=== PATIENT | male | born 1965 | race Caucasian/White ===

== ENCOUNTER 2020-02-17 15:50 | Outpatient (CLI) | payer OTHER, SELFPAY ==
[2020-02-17 16:58] LABS: Basophils Absolute Auto 0.1 K/mm3 (0.0-0.1); Basophils Percent Auto 0.5 % (0.2-1.2); Eosinophils Absolute Auto 0.5 K/mm3 (0-0.3); Eosinophils Percent Auto 5.4 % (0-4.4); Hematocrit 35.8 % (42.0-52.0); Hemoglobin 11.1 g/dL (14.0-18.0); Immature Granulocyte Absolute 0.03 K/mm3 (0.00-0.031); Immature Granulocyte Percent A 0.3 % (0-0.5); Lymphocytes Percent Auto 19.3 % (18.3-44.2); Mean Corpuscular Hemoglobin 25.2 pg (26-34); Mean Corpuscular Volume 81.2 fl (80-100); Mean Platelet Volume 9.5 fl (7.4-10.4); Monocytes Absolute Auto 1.2 K/mm3 (0.1-0.6); Monocytes Percent Auto 12.4 % (2.6-8.5); Neutrophils Absolute Auto 5.8 K/mm3 (1.3-6.7); Neutrophils Percent Auto 62.1 % (45.5-73.1); Platelet Count Result 213 k/mm3 (150-375); Red Blood Count 4.41 M/mm3 (4.6-6.20); Red Cell Distribution Width 18.9 % (11.5-14.5); White Blood Count 9.3 K/mm3 (4.5-10.0)
[2020-02-17 17:13] LABS: Hemoglobin A1C 5.7 % (<5.7)
[2020-02-17 17:14] LABS: Alanine Aminotransferase 15 U/L (4-50); Albumin Level 4.2 g/dL (3.5-5.1); Alkaline Phosphatase 95 U/L (38-126); Aspartate Amino Transferase 23 U/L (17-59); Bilirubin,Total 0.2 mg/dL (0.2-1.3); Blood Urea Nitrogen 16 mg/dL (9-20); CRP 0.7 mg/dL (<1.0); Calcium 8.7 mg/dL (8.4-10.2); Carbon Dioxide 26 mmol/L (22-30); Chloride 107 mmol/L (98-107); Cholesterol 162 mg/dL (0-200); Estimated Glomerular Filt Rate > 60; Glucose 106 mg/dL (75-110); HDL Direct 34 mg/dL; Sodium 139 mmol/L (137-145); Triglycerides 187 mg/dL (<150)
[2020-02-17 17:23] LABS: LDL Cholesterol Direct 96 mg/dL
[2020-02-17 17:36] LABS: Erythrocyte Sedimentation Rate 17 mm/hr (0-20)
[2020-02-20 12:49] LABS: Vitamin D 1,25 (OH)2 Total 29 pg/mL (18-72); Vitamin D2 1,25 (OH)2 <8 pg/mL; Vitamin D3 1,25 (OH)2 29 pg/mL
[2020-02-20 15:54] LABS: Homocysteine 10.1 umol/L (<11.4)
[2020-02-21 12:36] LABS: Vitamin B1 89 nmol/L (8-30)
== END 2020-02-17 15:51 | disposition home or self-care (01) ==
PROVIDERS: PCP Internal Medicine; Visit Provider Internal Medicine
DX: Z79.899 Other long term (current) drug therapy (principal); I10 Essential (primary) hypertension; R79.89 Other specified abnormal findings of blood chemistry; E55.9 Vitamin D deficiency, unspecified
CPT/HCPCS: 36415; 80053; 80061; 82652; 83036; 83090; 84207; 84425; 85025; 85652; 86140

== ENCOUNTER 2020-04-01 16:31 | Outpatient (CLI) | payer BC, SELFPAY ==
--- NOTE | ~2020-04-01 | XR_ITS ---
XR foot LT min 3V, XR toe 1st LT min 2V 04/01/2020 16:58 (accession [id number]), 04/01/2020 16:59 (accession [id number]) Indication: Left foot and first toe pain Procedure: 4 views left foot and 2 views left first toe Comparison: No prior studies for comparison. Findings: There is a comminuted extra-articular fracture left first distal phalanx. Mild osteoarthrit is of the first MTP and IP joints. Lisfranc joint intact. Osteopenia. There is a degenerative calcane al enthesophyte at the plantar surface. No focal foreign bodies. Impression: 1: Comminuted extra-articular nondisplaced fracture left first distal phalanx. Reviewed, dictated and finalized at location A. Impression: 1: Comminuted extra-articular nondisplaced fracture left first distal phalanx. Impression: 1: Comminuted extra-articular nondisplaced fracture left first distal phalanx.
== END 2020-04-01 16:32 | disposition home or self-care (01) ==
PROVIDERS: PCP Internal Medicine; Visit Provider Internal Medicine
DX: S92.422A Displaced fracture of distal phalanx of left great toe, initial encounter for closed fracture (principal)
CPT/HCPCS: 73630; 73660

== ENCOUNTER 2020-04-14 12:33 | Outpatient (CLI) | payer BC, SELFPAY ==
--- NOTE | ~2020-04-14 | XR_ITS ---
EXAMINATION: XR chest 2V DATE: 04/14/2020 13:17 INDICATION: Cough. TECHNIQUE: Frontal and lateral views of the chest were obtained. COMPARISON: Chest single view 08/10/2019, chest CT 08/10/2019 FINDINGS: The chest demonstrates clear lungs without pneumonia, pleural effusion, or pneumothorax. Th e heart size is normal. There is a moderate-sized hiatal hernia. IMPRESSION: 1. Moderate-sized hiatal hernia. Reviewed, dictated and finalized at location B.
[2020-04-14 13:08] LABS: Basophils Percent Auto 0.3 % (0.2-1.2); Eosinophils Absolute Auto 0.1 K/mm3 (0-0.3); Eosinophils Percent Auto 0.7 % (0-4.4); Hematocrit 39.4 % (42.0-52.0); Hemoglobin 12.8 g/dL (14.0-18.0); Immature Granulocyte Absolute 0.04 K/mm3 (0.00-0.031); Immature Granulocyte Percent A 0.3 % (0-0.5); Lymphocytes Absolute Auto 1.93 K/mm3 (0.9-3.2); Lymphocytes Percent Auto 12.9 % (18.3-44.2); Mean Corpuscular HGB Conc 32.5 g/dl (32-36); Mean Corpuscular Hemoglobin 26.3 pg (26-34); Mean Corpuscular Volume 80.9 fl (80-100); Mean Platelet Volume 9.9 fl (7.4-10.4); Monocytes Absolute Auto 1.3 K/mm3 (0.1-0.6); Monocytes Percent Auto 8.4 % (2.6-8.5); Neutrophils Absolute Auto 11.6 K/mm3 (1.3-6.7); Neutrophils Percent Auto 77.4 % (45.5-73.1); Platelet Count Result 166 k/mm3 (150-375); Red Blood Count 4.87 M/mm3 (4.6-6.20); Red Cell Distribution Width 18.6 % (11.5-14.5); White Blood Count 14.9 K/mm3 (4.5-10.0)
== END 2020-04-14 12:34 | disposition home or self-care (01) ==
LOC: ANHLAB 12:34
PROVIDERS: PCP Internal Medicine; Visit Provider Internal Medicine
DX: R05 Cough (principal); Z79.899 Other long term (current) drug therapy; K44.9 Diaphragmatic hernia without obstruction or gangrene
CPT/HCPCS: 36415; 71046; 85025

== ENCOUNTER 2020-06-24 06:53 | Outpatient (NON) | payer BC, SELFPAY ==
[2020-06-24 21:43] LABS: SARS-CoV-2 RNA PCR Negative
== END 2020-06-24 06:54 ==
LOC: ANHCOVIDDT 06:56
PROVIDERS: PCP Internal Medicine; Visit Provider Internal Medicine
DX: Z20.828 Contact with and (suspected) exposure to other viral communicable diseases (principal); R50.9 Fever, unspecified
CPT/HCPCS: 87635; C9803; U0003

== ENCOUNTER 2020-08-02 14:58 | Outpatient (CLI) | payer BC, SELFPAY ==
[2020-08-02 15:49] LABS: Basophils Absolute Auto 0.1 K/mm3 (0.0-0.1); Basophils Percent Auto 0.7 % (0.2-1.2); Eosinophils Absolute Auto 0.1 K/mm3 (0-0.3); Eosinophils Percent Auto 1.4 % (0-4.4); Hematocrit 37.2 % (42.0-52.0); Hemoglobin 12.2 g/dL (14.0-18.0); Immature Granulocyte Absolute 0.04 K/mm3 (0.00-0.031); Immature Granulocyte Percent A 0.5 % (0-0.5); Lymphocytes Absolute Auto 1.29 K/mm3 (0.9-3.2); Lymphocytes Percent Auto 15.9 % (18.3-44.2); Mean Corpuscular HGB Conc 32.8 g/dl (32-36); Mean Corpuscular Hemoglobin 27.9 pg (26-34); Mean Corpuscular Volume 84.9 fl (80-100); Mean Platelet Volume 9.3 fl (7.4-10.4); Monocytes Absolute Auto 1.2 K/mm3 (0.1-0.6); Monocytes Percent Auto 14.5 % (2.6-8.5); Neutrophils Absolute Auto 5.4 K/mm3 (1.3-6.7); Platelet Count Result 176 k/mm3 (150-375); Red Blood Count 4.38 M/mm3 (4.6-6.20); Red Cell Distribution Width 19.5 % (11.5-14.5); White Blood Count 8.1 K/mm3 (4.5-10.0)
[2020-08-02 16:06] LABS: Alanine Aminotransferase 34 U/L (4-50); Albumin Level 4.3 g/dL (3.5-5.1); Alkaline Phosphatase 73 U/L (38-126); Anion Gap 7 mmol/L (8-16); Aspartate Amino Transferase 46 U/L (17-59); Bilirubin,Total 0.5 mg/dL (0.2-1.3); Blood Urea Nitrogen 11 mg/dL (9-20); Calcium 9.3 mg/dL (8.4-10.2); Carbon Dioxide 30 mmol/L (22-30); Chloride 101 mmol/L (98-107); Cholesterol 229 mg/dL (0-200); Estimated Glomerular Filt Rate > 60; Glucose 101 mg/dL (75-110); HDL Direct 75 mg/dL; Potassium 3.8 mmol/L (3.4-5.0); Sodium 138 mmol/L (137-145); Triglycerides 153 mg/dL (<150)
[2020-08-02 16:16] LABS: Hemoglobin A1C 5.2 % (<5.7)
[2020-08-02 16:17] LABS: LDL Cholesterol Direct 153 mg/dL
[2020-08-02 16:37] LABS: Prostate Specific Antigen 1.7 ng/mL (< OR = 4.0)
[2020-08-04 13:19] LABS: Homocysteine 22.9 umol/L (<11.4)
== END 2020-08-02 14:59 | disposition home or self-care (01) ==
LOC: ANHLAB 15:00
PROVIDERS: PCP Internal Medicine; Visit Provider Internal Medicine
DX: R79.89 Other specified abnormal findings of blood chemistry (principal); I10 Essential (primary) hypertension; Z79.899 Other long term (current) drug therapy; Z12.5 Encounter for screening for malignant neoplasm of prostate
CPT/HCPCS: 36415; 80053; 80061; 82248; 83036; 83090; 84153; 84443; 85025; G0103

== ENCOUNTER 2020-08-05 13:05 | Outpatient (CLI) | payer BC, SELFPAY ==
--- NOTE | ~2020-08-05 | CT_ITS ---
EXAMINATION: CT chest high resolution wo nd EXAM DATE: 08/05/2020 13:33 INDICATION: R05 - Cough . TECHNIQUE: Spiral CT of the chest without contrast. HRCT. Axial, coronal and sagittal images were re viewed. Coronal maximum intensity pixel images of chest reviewed. The dose-length product (DLP) for this examination was 249.01 mGy-cm. The exposure was tailored according to patient size (auto mA ex posure control), and iterative reconstruction (ASIR) was used as additional dose reduction technique. Comparison is made to prior examination from 08/10/2019. FINDINGS: No intralobular septal thickening on the HRCT. There is right middle lobe and lingular sub segmental atelectasis. Scattered small left perihilar upper lobe and lingular opacities, could be acu te or chronic infectious process, or could be postinfectious. These are new compared to prior study. The lungs are otherwise clear. There are no pleural or pericardial effusions. Tracheobronchial tree is patent. There is no media stinal, hilar or axillary lymphadenopathy. There is no pneumothorax. Heart normal in size. No e vidence of coronary arterial calcification. There is hepatic steatosis. Cholelithiasis. There is smal l to moderate sliding gastroesophageal hiatal hernia. There is thoracic spondylosis without osteobla stic or osteolytic lesions identified. IMPRESSION: 1. Scattered small left perihilar upper lobe and lingular opacities, could be acute or chronic infec tious process, or could be postinfectious. 2. Lingular and right middle lobe subsegmental atelectasis. 3. Small to moderate hiatal hernia. 4. Hepatic steatosis. Reviewed, dictated and finalized at location A. SALVAGER IMPRESSION: 1. Scattered small left perihilar upper lobe and lingular opacities, could be acute or chronic infectious process, or could be postinfectious. 2. Lingular and right middle lobe subsegmental atelectasis. 3. Small to moderate hiatal hernia. 4. Hepatic steatosis.
== END 2020-08-05 13:06 | disposition home or self-care (01) ==
PROVIDERS: PCP Internal Medicine; Visit Provider Internal Medicine
DX: R05 Cough (principal); K76.0 Fatty (change of) liver, not elsewhere classified; K44.9 Diaphragmatic hernia without obstruction or gangrene; R91.8 Other nonspecific abnormal finding of lung field
CPT/HCPCS: 71250

== ENCOUNTER 2020-09-01 07:58 | Outpatient (CLI) | payer BC, SELFPAY ==
--- NOTE | 2020-09-02 11:50 | WPDPFTINT ---
PFT Interpretation PFT Interpretation: nm pulmonary function Full pulmonary testing 09/01/2020. 1. Flows appear normal with FEV1 2.93/92% PRED. 2. Nonetheless, there is modest in improvement in flows following inhaled bronchodilator. 3. Lung volumes appear satisfactory with TLC 6.41 /103% PRED. 4. Diffusing capacity appears satisfactory. In summary, this data appears normal. Nonetheless, the modest increase in flows following inhaled bronchodilator could suggest some underlying bronchospasm. Armando Hoskins MD MSc FACP FCCP
== END 2020-09-01 07:59 | disposition home or self-care (01) ==
LOC: ANHPFT 08:03
PROVIDERS: PCP Internal Medicine; Visit Provider Internal Medicine
DX: R05 Cough (principal)
CPT/HCPCS: 94060; 94726; 94729

== ENCOUNTER 2020-11-11 21:51 | Inpatient (IN) | payer BC, SELFPAY ==
[2020-11-11] VITALS (7 sets, daily range): BP systolic 138–142; BP diastolic 78–90; PULSE 126–134; RESP 22–42; TEMP 36.9; O2SAT 78–91
--- NOTE | ~2020-11-11 | CT_ITS ---
EXAMINATION: CT chest abdomen pelvis wo con DATE: 11/19/2020 08:50 INDICATION: Severe diarrhea. Abdominal pain. TECHNIQUE: Computed tomography (CT) of the chest, abdomen, and pelvis was performed without intraveno us contrast. Automated exposure control and iterative reconstruction technique were employed. The dos e-length product was 819.24 mGy-cm. COMPARISON: None FINDINGS: CHEST CT: Tree-in-bud opacities with innumerable small centrilobular nodules solid and subselected nodules thro ughout all lobes of both lungs consistent with pneumonia. There are more recent bands of discoid atel ectasis in the bilateral upper and lower lobes with additional dependent compressive atelectasis in t he bilateral lower lobes. Small bilateral pleural effusions. Heart size is normal. No pericardial eff usion. Likely reactive mildly prominent right paratracheal lymph node. No other pathologically enlarg ed thoracic lymphadenopathy. Moderate-sized sliding-type hiatal hernia. Ectatic ascending thoracic ao rta measuring up to 4.0 cm in maximal diameter. Mild thoracic spondylosis with Schmorl's node and chr onic appearing mild superior endplate compression fracture at T11. ABDOMEN/PELVIS CT: Diffuse hepatic steatosis. There are few calcified gallstones at the neck of the otherwise normal-bhavik earing gallbladder. Spleen, pancreas, bilateral adrenal glands and kidneys are normal. No bowel obstr uction. Normal appendix. There are a couple small colonic diverticula without adjacent inflammatory c hange to suggest diverticulitis. There is diffuse colonic wall thickening which appears to result fro m a combination of fatty infiltration and superimposed marrow edema, the former which could be relate d to body habitus or chronic inflammation and the latter suggesting acute colitis which could be infe ctious, inflammatory or ischemic in etiology. Gonzales catheter within the decompressed bladder. Trace a mount of ascites in the pelvis. No abscess or free intraperitoneal gas. No pathologically enlarged ab dominal or pelvic lymphadenopathy. Mild lumbar spondylosis. IMPRESSION: 1. Diffuse pneumonia throughout both lungs with small bilateral pleural effusions. 2. Pancolitis which could be infectious, inflammatory or ischemic in etiology. 3. Cholelithiasis. 4. Moderate-sized sliding-type hiatal hernia. 5. Diffuse hepatic steatosis. Reviewed, dictated and finalized at location B. IMPRESSION: 1. Diffuse pneumonia throughout both lungs with small bilateral pleural effusio ns. 2. Pancolitis which could be infectious, inflammatory or ischemic in etiology. 3. Cholelithiasis. 4. Moderate-sized sliding-type hiatal hernia. 5. Diffuse hepatic steatosis.
--- NOTE | ~2020-11-11 | XR_ITS ---
EXAMINATION: XR barium swallow modified EXAM DATE: 11/19/2020 12:05 INDICATION: Dysphagia. TECHNIQUE: Modified barium esophagram was performed by myself to administered fluoroscopy, in conjun ction with speech pathologist who administered barium in varying consistencies as per speech patholog ist documentation. This was recorded on tape. The DAP for this procedure was 0.6 Gycm2. FINDINGS: Oral stage: Adequate function. Pharyngeal phase: Adequate function. Laryngeal penetration: None. Aspiration: None. Laryngeal sensitivity: Present. IMPRESSION: Normal modified esophagram exam. Please refer to speech pathologist findings and specifi c feeding recommendations. Reviewed, dictated and finalized at location A. IMPRESSION: Normal modified esophagram exam. Please refer to speech pathologis t findings and specific feeding recommendations.
--- NOTE | ~2020-11-11 | XR_ITS ---
EXAMINATION: XR chest 1V portable DATE: 11/20/2020 05:46 INDICATION: Pneumonia TECHNIQUE: frontal view of the chest was obtained. COMPARISON: Chest radiograph dated 11/19/2020 -11/17/2020 FINDINGS: Continued improvement in the previously more pronounced diffuse reticulonodular pattern throughout debby th lungs consistent with improving pneumonia. No pleural effusion or pneumothorax. The cardiomediasti nal silhouette is normal. Small hiatal hernia. IMPRESSION: 1. Continued decrease in prior diffuse bilateral lung disease consistent with improving pneumonia. 2. Small hiatal hernia. Reviewed, dictated and finalized at location A. IMPRESSION: 1. Continued decrease in prior diffuse bilateral lung disease consistent with i mproving pneumonia. 2. Small hiatal hernia.
--- NOTE | ~2020-11-11 | XR_ITS ---
EXAMINATION: XR chest 1V portable DATE: 11/16/2020 06:05 INDICATION: Acute respiratory failure. TECHNIQUE: A single frontal view of the chest was obtained. COMPARISON: Chest single view 11/15/2020 FINDINGS: There are airspace opacities in all lung zones bilaterally with a perihilar and left basila r predominance. No pleural effusion or pneumothorax. The heart size is normal. The endotracheal tube tip is 4.4 cm above the ramirez. The nasogastric tube tip is beyond the inferior margin of the radiogr aph, but at least to the stomach. IMPRESSION: 1. Stable diffuse lung disease, consistent with pulmonary edema versus pneumonia. Reviewed, dictated and finalized at location A. IMPRESSION: 1. Stable diffuse lung disease, consistent with pulmonary edema versus pneumoni a.
--- NOTE | ~2020-11-11 | XR_ITS ---
XR chest 1V portable 11/22/2020 05:59 Indication: Pneumonia Procedure: AP portable chest Comparison: Comparison to multiple prior studies sequentially, with oldest reviewed study dated 11/18. Findings: No significant change to bilateral diffuse reticulonodular opacities. No significant effusi on or pneumothorax. Heart size is normal. There is hiatal hernia. No acute osseous abnormality. Impression: 1: Stable bilateral reticulonodular opacities, consistent with pneumonia. Reviewed, dictated and finalized at location A. Impression: 1: Stable bilateral reticulonodular opacities, consistent with pneumonia.
--- NOTE | ~2020-11-11 | XR_ITS ---
EXAMINATION: XR chest 1V portable DATE: 11/14/2020 05:42 INDICATION: Respiratory failure. TECHNIQUE: A single frontal view of the chest was obtained. COMPARISON: Chest single view 11/13/2020 FINDINGS: There are airspace opacities in all lung zones bilaterally with a perihilar predominance. T here is a small left pleural effusion. No pneumothorax. The heart size is normal. The endotracheal tu be tip is 4.4 cm above the ramirez. The nasogastric tube tip is in the stomach. IMPRESSION: 1. Worsened diffuse lung disease, likely pneumonia. 2. New small left pleural effusion. Reviewed, dictated and finalized at location A.
--- NOTE | ~2020-11-11 | XR_ITS ---
EXAMINATION: XR chest ET placement INDICATION: Respiratory failure, intubation TECHNIQUE: Portable AP chest at 0 to 50 hours COMPARISON: 11/11/2020 FINDINGS: The endotracheal tube ends approximately 5.7 cm above the ramirez. The nasogastric tube is f ollowed as far as the stomach. Its tip is beyond the inferior margin of the radiograph. Diffuse inter stitial and airspace opacities have developed with a perihilar and lower lung zone distribution. No d efinite pleural effusion or pneumothorax is identified. The cardiomediastinal silhouette is normal. IMPRESSION: 1. Endotracheal tube approximately 5.7 cm above the ramirez and nasogastric tube at least to the stoma ch. 2. Developing perihilar and lower lung zone opacities, consistent with pulmonary edema and/or pneumon ia and/or atelectasis. Reviewed, dictated and finalized at location A. 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 Endotracheal tube approximately 5.7 cm above the ramirez and nasogastric tube at least to the stomach. 2. Developing perihilar and lower lung zone opacities, consistent with pulmonar y edema and/or pneumonia and/or atelectasis.
--- NOTE | ~2020-11-11 | XR_ITS ---
EXAMINATION: XR chest 1V portable DATE: 11/21/2020 05:47 INDICATION: Pneumonia TECHNIQUE: frontal view of the chest was obtained. COMPARISON: Chest radiograph dated 11/20/2020 FINDINGS: Continued improvement in the previously more pronounced reticulonodular pattern which is now near nor mal. No new airspace opacities, pulmonary edema, pleural effusion or pneumothorax. The cardiomediasti nal silhouette is normal. Gas within a small hiatal hernia. IMPRESSION: 1. Continued decrease in prior diffuse bilateral lung disease, now near normal, consistent with impro ving pneumonia. 2. Small hiatal hernia. Reviewed, dictated and finalized at location A. IMPRESSION: 1. Continued decrease in prior diffuse bilateral lung disease, now near normal, consistent with improving pneumonia. 2. Small hiatal hernia.
--- NOTE | ~2020-11-11 | XR_ITS ---
EXAMINATION: XR chest 1V portable DATE: 11/15/2020 05:39 INDICATION: Acute respiratory failure. TECHNIQUE: A single frontal view of the chest was obtained on 2 radiographs. COMPARISON: Chest single view 11/14/2020 FINDINGS: There are airspace opacities in all lung zones bilaterally with a perihilar predominance. T here is a small left pleural effusion. No pneumothorax. The heart size is normal. The endotracheal tu be tip is 4.3 cm above the ramirez. The nasogastric tube tip is beyond the inferior margin of the radi ograph, but at least to the stomach. IMPRESSION: 1. Worsened diffuse lung disease, consistent with pneumonia versus pulmonary edema. 2. Stable small left pleural effusion. Reviewed, dictated and finalized at location A. IMPRESSION: 1. Worsened diffuse lung disease, consistent with pneumonia versus pulmonary ed gerard. 2. Stable small left pleural effusion.
--- NOTE | ~2020-11-11 | XR_ITS ---
EXAMINATION: XR chest 2V 11/11/2020 23:25 INDICATION: Shortness of breath. Seizure. Cough. PROCEDURE: 2 view chest COMPARISON: Comparison to multiple prior studies sequentially, with oldest reviewed study dated 02/12. FINDINGS: The lungs are clear. The cardiomediastinal silhouette is within normal limits. There are no pleural effusions. There is no pneumothorax suspected. There is a small hiatal hernia. IMPRESSION: 1: NO ACUTE CARDIOPULMONARY DISEASE. Reviewed, dictated and finalized at location A. CISER
--- NOTE | ~2020-11-11 | XR_ITS ---
EXAMINATION: XR chest 1V portable DATE: 11/19/2020 05:52 INDICATION: Pneumonia. TECHNIQUE: A single frontal view of the chest was obtained. COMPARISON: Chest single view 11/18/2020, chest CT 08/05/2020 FINDINGS: There are scattered nodules in the lungs, worst in left midlung zone. No pleural effusion o r pneumothorax. The heart size is normal. IMPRESSION: 1. Diffuse lung disease with interval improvement, consistent with pneumonia. Reviewed, dictated and finalized at location A.
--- NOTE | ~2020-11-11 | XR_ITS ---
EXAMINATION: XR chest 1V portable DATE: 11/17/2020 05:41 INDICATION: Acute respiratory failure. TECHNIQUE: A single frontal view of the chest was obtained. COMPARISON: Chest single view 11/16/2020, chest CT 08/05/2020 FINDINGS: There are airspace opacities in all lung zones bilaterally with a perihilar predominance. N o pleural effusion or pneumothorax. The heart size is normal. IMPRESSION: 1. Diffuse lung disease with improvement at left lung base, consistent with pulmonary edema versus pn eumonia. Reviewed, dictated and finalized at location A. IMPRESSION: 1. Diffuse lung disease with improvement at left lung base, consistent with pul monary edema versus pneumonia.
--- NOTE | ~2020-11-11 | CT_ITS ---
EXAMINATION: CT brain wo con INDICATION: Transient alteration of awareness COMPARISON: 08/11/2019 TECHNIQUE: Standard unenhanced head CT. The dose-length product (DLP) was 605.33 mGy-cm. The mA was a djusted according to patient size. Iterative reconstruction technique was employed. FINDINGS: There is no acute intraparenchymal hemorrhage. No evidence of mass lesion. No evidence of a cute infarction. There is mild periventricular and subcortical hypodensity probably related to small vessel ischemic disease. There is mild prominence of the sulci and ventricles related to cerebral atr ophy. Intracranial calcified cerebral atherosclerosis is noted. There are no extra-axial collections. There is no mass effect or midline shift. Changes in the globes are likely from ocular lens surgery. There is mild mucosal thickening of the paranasal sinuses. IMPRESSION: 1. No acute intracranial abnormality. 2. Age related findings. Reviewed, dictated and finalized at location A. ATIONS TECH
--- NOTE | ~2020-11-11 | XR_ITS ---
EXAMINATION: XR chest 1V portable DATE: 11/13/2020 05:38 INDICATION: Acute respiratory failure. TECHNIQUE: A single frontal view of the chest was obtained. COMPARISON: Chest single view 11/12/2020, chest CT 08/05/2020 FINDINGS: There are patchy airspace opacities in all lung zones bilaterally with a medial predominanc e. No pleural effusion or pneumothorax. The heart size is normal. The endotracheal tube tip is 4.5 cm above the ramirez. The nasogastric tube tip is in the midesophagus. IMPRESSION: 1. Diffuse lung disease with interval improvement, likely pneumonia. Reviewed, dictated and finalized at location A. 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
--- NOTE | ~2020-11-11 | US_ITS ---
EXAMINATION: US venous doppler [facility] DATE: 11/14/2020 08:58 INDICATION: Lower limb edema. TECHNIQUE: Grayscale ultrasound images without and with compression and Doppler ultrasound images of the bilateral lower extremity veins were obtained. COMPARISON: None. FINDINGS: The visualized portions of right common femoral vein, profunda (deep) femoral vein, femoral vein, pop liteal vein, peroneal veins, posterior tibial veins, and greater saphenous vein outflow are patent. The visualized portions of left common femoral vein, profunda femoral vein, femoral vein, popliteal v ein, peroneal veins, posterior tibial veins, and greater saphenous vein outflow are patent. IMPRESSION: 1. No deep venous thrombosis. Reviewed, dictated and finalized at location A.
--- NOTE | ~2020-11-11 | XR_ITS ---
EXAMINATION: XR chest 1V portable DATE: 11/18/2020 05:44 INDICATION: Pneumonia. TECHNIQUE: A single frontal view of the chest was obtained. COMPARISON: Chest single view 11/17/2020 FINDINGS: There are patchy airspace opacities throughout the lungs bilaterally. No pleural effusion o r pneumothorax. The heart size is normal. IMPRESSION: 1. Stable diffuse lung disease, consistent with pulmonary edema versus pneumonia. Reviewed, dictated and finalized at location A. IMPRESSION: 1. Stable diffuse lung disease, consistent with pulmonary edema versus pneumoni a.
--- NOTE | 2020-11-11 22:17 | ECG_ITS ---
Measurements Intervals [place] Rate: 126 P: 48 PA: 143 QRS: 53 QRSD: 110 T: 10 QT: 385 QTc: 558 Interpretive Statements SINUS TACHYCARDIA CONSIDER INFERIOR INFARCT, AGE INDETERMINATE BORDERLINE ST-T WAVE ABNORMALITY- ANTEROLATERAL LEADS BASELINE ARTIFACT- I, II, III, AVR, AVL, AVF, V1-V6 ABNORMAL ECG Electronically Signed On 11-12-2020 7:06:40 DRUM ATTENDANT by Jarred Bustillo D.O.
[2020-11-11] MEDS: diazePAM INJ (*CRX) 10 MG/2 ML SYRINGE 5 MG IV PUSH ×2 (22:40→23:07)
[2020-11-11 22:44] LABS: Basophils Percent Auto 0.2 % (0.2-1.2); Eosinophils Percent Auto 0.1 % (0-4.4); Hematocrit 35.3 % (42.0-52.0); Hemoglobin 11.1 g/dL (14.0-18.0); Immature Granulocyte Absolute 0.17 K/mm3 (0.00-0.031); Immature Granulocyte Percent A 1.1 % (0-0.5); Immature Platelet Fraction Pct 12.2 % (0.9-11.2); Lymphocytes Absolute Auto 0.75 K/mm3 (0.9-3.2); Lymphocytes Percent Auto 4.7 % (18.3-44.2); Mean Corpuscular HGB Conc 31.4 g/dl (32-36); Mean Corpuscular Hemoglobin 25.3 pg (26-34); Mean Corpuscular Volume 80.6 fl (80-100); Mean Platelet Volume 11.5 fl (7.4-10.4); Monocytes Absolute Auto 1.1 K/mm3 (0.1-0.6); Monocytes Percent Auto 6.7 % (2.6-8.5); Neutrophils Percent Auto 87.2 % (45.5-73.1); Platelet Count Result 131 k/mm3 (150-375); Red Blood Count 4.38 M/mm3 (4.6-6.20); Red Cell Distribution Width 19.7 % (11.5-14.5)
[2020-11-11 22:56] LABS: Alveolar/Arterial O2 Gradient 212.5 mmHg; Base Excess ABG 10.1 mEq/l (+/-2.0); Carboxyhemoglobin 0.6 % THb (0-2.0); Fractional Inspired Oxygen 45 %; HCO3 ABG 34.7 mEq/l (22.0-26.0); Methemoglobin ABG 0.2 %THb (0-1.5); Oxygen Content ABG 13.9 %vol (16.0-22.0); Oxyhemoglobin 88.2 % THb (90.0-100.0); PCO2 ABG 46.3 mmHg (35.0-45.0); PO2 ABG 55.7 mmHg (80.0-100.0); PO2 FiO2 Ratio Arterial Blood 1.24 %; Total Hemoglobin 11.2 g/dL (12.0-18.0); pH ABG 7.492 (7.350-7.450)
[2020-11-11 22:57] LABS: Device NASAL CANNULA; Modified Allen's Test Pass; Site Drawn RIGHT RADIAL
[2020-11-11 22:59] LABS: Hypochromasia 1+ (NORMAL); Large Platelets Present; Ovalocytes 1+ (NORMAL)
[2020-11-11 23:07] LABS: Albumin Level 4.5 g/dL (3.5-5.1); Alkaline Phosphatase 83 U/L (38-126); Anion Gap 12 mmol/L (8-16); Aspartate Amino Transferase 54 U/L (17-59); Blood Urea Nitrogen 21 mg/dL (9-20); Calcium 9.3 mg/dL (8.4-10.2); Carbon Dioxide 36 mmol/L (22-30); Chloride 84 mmol/L (98-107); Estimated CRCL calculation 51 ml/min; Estimated Glomerular Filt Rate 52; Glucose 170 mg/dL (75-110); Potassium 2.5 mmol/L (3.4-5.0); Sodium 132 mmol/L (137-145)
[2020-11-11 23:14] LABS: Ethanol < 10 mg/dL (<10)
[2020-11-11 23:30] LABS: Alanine Aminotransferase 26 U/L (4-50)
--- NOTE | 2020-11-11 23:39 | ED.SEIZURE ---
HPI - Seizure General Chief Complaint: Seizure Stated Complaint: seizure Time Seen by Provider: 11/11/20 21:53 History of Present Illness HPI Narrative: Patient is a 55-year-old male who presents ER with alcohol withdrawal seizure. He has had this happen to him to other x4. Last drink was 4 days ago. He began feeling weak a day later and began having some vomiting. Reports he is feeling well this evening prior to walking to his bedroom and experiencing a seizure. Patient does not think he vomited however he has new cough since a seizure. Denies shortness of breath. Patient reports he opted to quit drinking was not having any physical or medical concerns prior to having stop. Seizure History: Yes Related Data Home Medications Medication Instructions Recorded Confirmed Thera M Plus (ferrous fumarat) 1 tablet PO DAILY 08/10/19 08/03/20 fluoxetine 20 mg tablet 20 mg PO DAILY 02/17/20 08/03/20 omega-3 fatty acids 1,000 mg 2,000 mg PO BID cap 02/23/20 08/03/20 capsule doxepin 50 mg capsule 50 mg PO DAILY PRN 08/02/20 08/03/20 cyanocobalamin (vitamin B-12) 1,000 mcg PO DAILY 08/18/20 1,000 mcg tablet Allergies Allergy/AdvReac Type Severity Reaction Status Date / Time bee venom protein (honey bee) Allergy Severe Swelling Verified 08/02/20 14:09 Review of Systems Review of Systems: All systems reviewed & are unremarkable except as noted in HPI and below Constitutional: Constitutional: Denies chills, Denies fever(s) and Denies weakness Cardiovascular: Cardiovascular: Denies chest pain and Denies rapid heart rate Respiratory: Respiratory: Reports cough, Denies dyspnea and Denies wheezing Gastrointestinal: Gastrointestinal: Denies abdominal pain, Denies diarrhea, Reports nausea and Reports vomiting Neurologic: Denies headache(s), Denies focal weakness and Denies numbness Comments: Seizure PMFSH Past Medical History Medical History (Updated 11/11/20 @ 23:44 by Fredy Whitfield MD) Acute hypokalemia Alcohol withdrawal Anxiety BMI 31.0-31.9,adult BMI 32.0-32.9,adult BPH (benign prostatic hyperplasia) Cataract, right eye Cellulitis Cough Depression ARAUJO (dyspnea on exertion) Dog bite of extremity DVT prophylaxis Elevated homocysteine Encounter for preventive health examination Encounter for routine adult health examination with abnormal findings Encounter for special screening examination for neoplasm of prostate Esophageal varices Patient had some bleeding varices in the past. Fatigue Fever Follow up GERD (gastroesophageal reflux disease) GI bleed Headache Hiatal hernia HTN (hypertension) Injury of left foot including toes Lactic acidosis Nausea and vomiting On fci drug therapy Peripheral neuropathy Persistent cough Rash Ulcer Vitamin D deficiency Withdrawal seizures Surgical History Surgical History History of colonoscopy History of esophagogastroduodenoscopy (EGD) Family History Family History Mother Family history of mental disorder Family history of lung cancer Father Family history of chronic obstructive pulmonary disease Malignant neoplasm of prostate Other Family history of cardiovascular disease Family history of hypercholesterolemia Hypertension Social History Social History Social History: The patient is and now has a girlfriend. He states that his girlfriend is very supportive. He has 2 children. Designated as a full code. 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
[2020-11-12] VITALS (55 sets, daily range): BP systolic 55–149; BP diastolic 39–103; PULSE 100–171; RESP 16–158; TEMP 36.6–38.9; O2SAT 90–100; BMI 29.7
[2020-11-12 01:40] LABS: Reflex Lactic Acid Yes or No Add Lactic
[2020-11-12] MEDS: dexmedeTOMIDine 400 MCG/100 ML 400 MCG/100 ML BAG IV CONT (01:58)
[2020-11-12 02:22] LABS: Lactic Acid 4.1 mmol/L (0.7-2.1)
--- NOTE | 2020-11-12 02:32 | WPDPROCEDUR ---
Procedures Intubation Intubation Date: 11/12/20 Intubation Time: 02:32 A pre-procedural Time-Out was completed immediately before starting the procedure and confirmed: Patient Identification, Site, Procedure, Patient Position and the Availability of Requisite Equipment: Yes Sedative: etomidate Mg given: 8 Paralytic: rocuronium Mg given: 50 Laryngoscope: fiber optic video scope ET tube size: 8 Tube secured depth (cm): 24 Tube secured location: lips Tube placement confirmation: visualized tube passing through cords, equal breath sounds bilaterally, no breath sounds over epigastrium and confirmation by capnometry Patient tolerated procedure: well and no complications Intubation complications: none Additional comments: Date of service was 11/12/2020 at 02:20 hrs
--- NOTE | 2020-11-12 02:35 | PM.IMHP ---
H&P: HPI History of Present Illness Date/Time: 11/12/20 02:35 Chief Complaint: acute altered mental status Narrative: This is a 55 year old male with known history of alcoholism who presented to the hospital with acute altered mental status. The patient is known to drink 1/5th of hard liquor daily and decided to stop drinking approximately 4 days ago. He reports that he remembers passing out this evening but doesn't know what happened afterwards. It was reported that he probably had a seizure? It is unknown if his seizure was witnessed by anyone. The patient was found to be in acute respiratory failure with hypoxemia in the ER this evening and was placed on high flow oxygen. He was also found to be severely septic and started on IV Zosyn. Chief Airline Radio Operator, Dr. Mcdaniel was consulted by ER provider. On arrival to the ICU the patient presented in kurt respiratory failure with a HR in the 170s, RR in the mid 30s, desaturating down to the 80s. Nursing staff placed the patient on a nonrebreather and urgently called me to bedside. The patient was promptly intubated secondary to his kurt respiratory failure. No other history is obtainable at this time. Review of Systems Review of Systems: ROS unobtainable: Yes unobtainable due to medical condition PMFSH Past Medical History Medical History Acute hypokalemia Alcohol withdrawal Anxiety BMI 31.0-31.9,adult BMI 32.0-32.9,adult BPH (benign prostatic hyperplasia) Cataract, right eye Cellulitis Cough Depression ARAUJO (dyspnea on exertion) Dog bite of extremity DVT prophylaxis Elevated homocysteine Encounter for preventive health examination Encounter for routine adult health examination with abnormal findings Encounter for special screening examination for neoplasm of prostate Esophageal varices Patient had some bleeding varices in the past. 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 He states that his girlfriend is very supportive. He has 2 children. Designated as a full code. 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 Gender identity (if verbalized by the patient): Male Spiritual care concerns: No Agree to blood products: Yes Meds Home Medications and Allergies Home Medications Medication Instructions Recorded Confirmed Type Thera M Plus (ferrous fumarat) 1 tablet PO DAILY 08/10/19 11/12/20 History magnesium oxide 200 mg PO Q12HR #10 tablet 08/18/19 11/12/20 Rx fluoxetine 20 mg tablet 20 mg PO DAILY 02/17/20 11/12/20 History gabapentin 300 mg capsule 300 mg PO .at bedtime #90 cap 02/23/20 11/12/20 Rx omega-3 fatty acids 1,000 mg 2,000 mg PO BID cap 02/23/20 11/12/20 History capsule folic acid 1 mg tablet 1 mg PO Q
[2020-11-12] MEDS: SODIUM CHLORIDE 0.9% IV 1,000 ML 125 ML IV CONT (02:41)
[2020-11-12] MEDS: FENTANYL 2,500MCG/NS250ML(*CRX 2,500 MCG/250 ML BAG IV CONT (02:42)
[2020-11-12] MEDS: MIDAZOLAM 100MG/NS 100ML(*CRX) 100 MG/100 ML BAG IV CONT ×2 (02:43→22:25)
[2020-11-12] MEDS: SODIUM CHLORIDE 0.9% IV 500 ML 999 ML IV CONT ×2 (02:55→04:00)
[2020-11-12 04:02] LABS: Alveolar/Arterial O2 Gradient 583.5 mmHg; Base Excess ABG 4.8 mEq/l (+/-2.0); Device VENTILATOR; Fractional Inspired Oxygen 100 %; HCO3 ABG 29.5 mEq/l (22.0-26.0); Oxygen Saturation ABG 96.7 % (95.0-100.0); Oxyhemoglobin 94.9 % THb (90.0-100.0); PCO2 ABG 44.3 mmHg (35.0-45.0); PO2 ABG 85.2 mmHg (80.0-100.0); PO2 FiO2 Ratio Arterial Blood 0.85 %; Site Drawn RIGHT BRACHIAL; Total Hemoglobin 10.4 g/dL (12.0-18.0); pH ABG 7.441 (7.350-7.450)
[2020-11-12 04:03] LABS: Arterial Blood Gas PEEP 8 cmH2O; Arterial Blood Gas Tidal Volume 420 ml; Arterial Blood Gas Vent Mode CMV; Arterial Blood Gas Ventilator rate 16 /MIN
[2020-11-12] MEDS: NOREPINEPHRINE 8 MG/D5W 250 ML 8 MG/250 ML BAG 9.38 MG IV CONT (04:15)
--- NOTE | 2020-11-12 04:23 | P.PCNBED_ITS ---
Procedures Central Line Placement Right Femoral: Central Line Date: 11/12/20 Central Line Time: 04:10 Discussed w/ the patient/family/POA,the placement of a central venous catheter, including its clinical necessity/indication & associated potential risks, benifits and alternatives.: Yes Time Out Performed: Yes Patient Position: supine Patient placed on monitor/pulse ox: Yes Provider Prep: mask, sterile gown, sterile gloves, Max. sterile barrier precautions, cap and hand hygiene with conventional soap/water or alcohol based hand rub Central line prep: 2% Chlorhexidine scrub Local anesthesia used: lidocaine 1% Amount of anesthesia used (ml): 4 Sterile US Technique with sterile gel/sterile probe covers: Yes Central line lumen inserted: triple Emirati: 7 Length (cm): 20 Depth of Insertion (cm): 20 Post Procedure: sutured in place, good blood return, all ports aspirated, flushed, capped, transparent dressing, securement product and aseptic technique maintained throughout procedure Patient tolerated procedure: well and no complications Complications: none Additional comments: Date of service of procedure was 11/12/2020 at 04:10 h rsKatia
--- NOTE | 2020-11-12 05:28 | ADMIMU ---
This patient, [employer], was admitted to ICU status, and placed in Intensive Care Unit-10 at 0128 on 11/12/20. Patient/family oriented to hospital policies and general routines including ID bracelet, bed and alarms, visiting hours, pain management, procedures, bathroom and other care routines, personal items, smoking policy, room service/diet, and visiting hours. Valuables list has been completed. Information on how to activate the Rapid Response Team has been discussed. Patient/Family are encouraged to report perceived risks to care and to ask questions if they do not understand what they are told or what they should do.
--- NOTE | 2020-11-12 05:28 | PC.NURSE ---
Updated son Ba who states he has POA papers at 9415. He states he will fax them over.
--- NOTE | 2020-11-12 05:29 | PC.NURSE ---
Spoke with daughter Felicia and received admission information. Either Felicia or Jones significant other will bring medications up today.
[2020-11-12 06:14] LABS: Hematocrit 31.1 % (42.0-52.0); Hemoglobin 9.6 g/dL (14.0-18.0); Immature Platelet Fraction Pct 10.9 % (0.9-11.2); Mean Corpuscular HGB Conc 30.9 g/dl (32-36); Mean Corpuscular Hemoglobin 25.3 pg (26-34); Mean Corpuscular Volume 81.8 fl (80-100); Mean Platelet Volume 11.6 fl (7.4-10.4); Platelet Count Result 123 k/mm3 (150-375); Red Cell Distribution Width 19.6 % (11.5-14.5); White Blood Count 29.5 K/mm3 (4.5-10.0)
[2020-11-12 06:46] LABS: Amphetamine Screen Urine Negative (Negative); Barbiturate Screen Urine Negative (Negative); Benzodiazepines Screen Urine Positive (Negative); Cannabinoid Screen Urine Negative (Negative); Cocaine Screen Urine Negative (Negative); Methadone Screen Urine Negative (Negative); Opiate Screen Urine Negative (Negative); Phencyclidine Screen Urine Negative (Negative)
[2020-11-12 06:56] LABS: Band Neutrophils Percent 11 % (0-6); Lymphocytes Absolute Manual 0.59 K/mm3 (1.1-4.5); Monocytes Absolute Manual 0.88 K/mm3 (0.1-0.90); Monocytes Percent Manual 3 % (3-9); Neutrophils Absolute Manual 28.02 K/mm3 (1.3-6.7); Neutrophils Percent Manual 84 % (46-73); Platelet Estimate Decreased (Adequate); Total Cells Counted 100
[2020-11-12 06:57] LABS: Anisocytosis 1+ (NORMAL); Ovalocytes 1+ (NORMAL)
[2020-11-12 07:00] LABS: Anion Gap 5 mmol/L (8-16); Blood Urea Nitrogen 17 mg/dL (9-20); Calcium 7.1 mg/dL (8.4-10.2); Carbon Dioxide 32 mmol/L (22-30); Chloride 96 mmol/L (98-107); Estimated CRCL calculation 54 ml/min; Estimated Glomerular Filt Rate 57; Glucose 150 mg/dL (75-110); Potassium 2.4 mmol/L (3.4-5.0); Sodium 133 mmol/L (137-145)
[2020-11-12 08:28] LABS: Thyroid Stimulating Hormone Reflex 0.962 uIU/mL (0.465-4.68)
--- NOTE | 2020-11-12 09:15 | WPDCNINT ---
Assessment and Plan Assessment and plan (1) Acute respiratory failure with hypoxemia: Code(s): J96.01 - Acute respiratory failure with hypoxia Status: Acute Assessment and Plan: Acute respiratory failure, patient intubated on 11/12/2020 -chest x-ray shows worsening diffuse infiltrates bilaterally, could be related to pulmonary edema, pneumonia and/or atelectasis -ABGs reviewed, will wean FiO2 to maintain O2 sats greater than 92% and increase PEEP to 10 -SARS-CoV-2 PCR PCR will be obtained -continue bronchodilators -fentanyl Versed for sedation (2) Septic shock: Code(s): A41.9 - Sepsis, unspecified organism; R65.21 - Severe sepsis with septic shock Status: Acute Assessment and Plan: Patient with septic shock, likely secondary to pneumonia, suspect COVID-19. -central line inserted, patient started on Levophed, will maintain MAP > 65 mmHg, to prevent end organ damage/failure -monitor urine output, renal function -patient started on Zosyn for possible aspiration pneumonia, will also add vancomycin -blood cultures have been obtained -will also obtain urine and sputum cultures -acid initially was 5.0, trended down to 2.0 (3) Withdrawal seizures: Code(s): F19.239 - Other psychoactive substance dependence with withdrawal, unspecified; R56.9 - Unspecified convulsions Status: Chronic Assessment and Plan: Patient presented with withdrawal seizures, lactic acid doses could be related to seizures and or septic shock -CT scan of the brain on 11/12/2020: Did not show any acute intracranial abnormality -continue Versed and fentanyl (4) Alcohol withdrawal: Code(s): F10.239 - Alcohol dependence with withdrawal, unspecified Status: Acute Assessment and Plan: Patient stopped drinking about 4 days prior to admission, presented with possible withdrawal seizure -currently on Versed and fentanyl infusion -will continue to monitor -will add thiamine, folic acid (5) Acute hypokalemia: Code(s): E87.6 - Hypokalemia Status: Acute Assessment and Plan: Aggressively replete potassium (6) Suspected 2019-nCoV infection: Code(s): Z20.822 - Contact with and (suspected) exposure to COVID-19 Status: Acute Assessment and Plan: Diffuse bilateral infiltrates on chest x-ray along with fevers, altered mental status on arrival -will order SARS-CoV-2 PCR -continue droplet, airborne, contact isolation/precautions Additional Plan Will discuss with family and updated them with patient's condition and plan of care Code status: Full code Critical care time spent: 46 minutes This dictation may have been done utilizing a voice recognition system. Attempts have been made to correct errors. However, there may be uncorrected grammatical, spelling, and recognition errors present. Due to a high probability of clinically significant, life threatening deterioration, the patient required my highest level of preparedness to intervene emergently and I personally spent this critical care time directly and personally managing the patient. This critical care time included obtaining a history; examining the patient; pulse oximetry; ordering and review of studies; arranging urgent treatment with development of a management plan; evaluation of patient's response to treatment; frequent reassessment; and discussions with other providers. It was exclusive of separately billable procedures and treating other patients and teaching time. Please see Assessment and Plan section and the rest of the note for further information on patient assessment and treatment Instrument Lens Generator Consult Note Consult date: 11/12/20 Time Seen: 06:57 Reason for consult: Seizures, acute respiratory failure, alcohol withdrawal, altered mental status, shock HPI: [employer] is a 55 year old male with significant past medical history of alcoholism, alcohol withdrawal with withdrawal seizures, anxiety, BPH, cellulit
[2020-11-12] MEDS: MAGNESIUM SULF 4 GM/WATER100ML 4 GM/100 ML BAG IVPB (10:35)
[2020-11-12] MEDS: POTASSIUM CHLORIDE 20 MEQ PACKET (FOR LIQUID) 40 MEQ FEED TUBE (10:36)
[2020-11-12] MEDS: THIAMINE HCL 200 MG/2 ML VIAL 100 MG IV PUSH (10:37)
[2020-11-12] MEDS: FOLIC ACID 1 MG/0.2 ML INJ IV PUSH (10:37)
--- NOTE | 2020-11-12 11:22 | PC.NURSE ---
Updated daughter via telephone on plan of care
--- NOTE | 2020-11-12 11:25 | PC.NURSE ---
Dr Mcdaniel updated son on plan of care.
[2020-11-12] MEDS: NOREPINEPHRINE 8 MG/D5W 250 ML 8 MG/250 ML BAG 31.88 MG IV CONT ×2 (11:31→20:58)
[2020-11-12] MEDS: SODIUM CHLORIDE 0.9% IV 1,000 ML 75 ML IV CONT ×2 (11:31→16:32)
[2020-11-12 12:38] LABS: Glucose Point of Care 188 (65-105)
[2020-11-12] MEDS: PANTOPRAZOLE SODIUM IV 40 MG VIAL IV PUSH (13:01)
--- NOTE | 2020-11-12 13:30 | PC.NURSE ---
Updated patient's significant other on COVID status.
[2020-11-12 13:31] LABS: Anion Gap 2 mmol/L (8-16); Blood Urea Nitrogen 16 mg/dL (9-20); Carbon Dioxide 33 mmol/L (22-30); Chloride 97 mmol/L (98-107); Estimated CRCL calculation 64 ml/min; Estimated Glomerular Filt Rate > 60; Glucose 175 mg/dL (75-110); Magnesium 2.3 mg/dL (1.6-2.3); Potassium 3.5 mmol/L (3.4-5.0); Sodium 132 mmol/L (137-145)
--- NOTE | 2020-11-12 17:01 | PM.IMPN ---
Progress Note: A&P Assessment and Plan (1) Acute respiratory failure with hypoxemia: Code(s): J96.01 - Acute respiratory failure with hypoxia Status: Acute Assessment and Plan: The patient has been emergently intubated on arrival to the ICU. (2) Acute encephalopathy: Code(s): G93.40 - Encephalopathy, unspecified Status: Acute Assessment and Plan: Likely secondary to ETOH withdrawal and aspiraton pneumonia. (3) Septic shock: Code(s): A41.9 - Sepsis, unspecified organism; R65.21 - Severe sepsis with septic shock Status: Acute Assessment and Plan: Source of sepsis appears to be likely aspiration pneumonia. rule out covid awaiting result. (4) Alcohol withdrawal: Code(s): F10.239 - Alcohol dependence with withdrawal, unspecified Status: Acute Assessment and Plan: CIWA- AR protocol when the patient is extubated. (5) Acute hypokalemia: Code(s): E87.6 - Hypokalemia Status: Acute Assessment and Plan: KCL is being replaced. monitor potassium levels (6) Aspiration pneumonia: Code(s): J69.0 - Pneumonitis due to inhalation of food and vomit Status: Acute Assessment and Plan: Continue Zosyn IV. awaiting cultures blood urine and sputum Subjective Date/time seen: 11/12/20 17:01 Interval history: 55 year old male with known history of alcoholism who presented to the hospital with acute altered mental status. needing intubated ? covid awaiting result. Review of Systems Review of Systems: ROS unobtainable: Yes unobtainable due to endotracheal tube Exam Narrative: Exam Narrative: Intubated in icu, chronically ill appearing middle aged man Objective Data Vital Signs Vital Signs: Vital Signs - 24 hr 11/11/20 21:50 11/11/20 22:00 11/11/20 22:04 Temperature 36.9 C Pulse Rate 133 H 131 H Pulse Rate [Monitor] Respiratory Rate 31 H 22 H Blood Pressure 142/81 H 142/81 H Pulse Oximetry 79 L 79 L 79 L 11/11/20 22:05 11/11/20 22:15 11/11/20 23:03 Temperature Pulse Rate 128 H 126 H 134 H Pulse Rate [Monitor] Respiratory Rate 42 H 26 H 28 H Blood Pressure 138/90 138/78 Pulse Oximetry 78 L 87 L 89 L 11/11/20 23:25 11/12/20 00:05 11/12/20 01:00 Temperature Pulse Rate 142 H 144 H Pulse Rate [Monitor] Respiratory Rate 38 H 39 H Blood Pressure 149/103 H Pulse Oximetry 91 98 11/12/20 01:52 11/12/20 01:58 11/12/20 02:13 Temperature Pulse Rate 167 H Pulse Rate [Monitor] 171 H Respiratory Rate 30 H 158 H Blood Pressure Pulse Oximetry 11/12/20 02:15 11/12/20 02:16 11/12/20 02:42 Temperature Pulse Rate 150 H 158 H 150 H Pulse Rate [Monitor] Respiratory Rate 31 H 16 Blood Pressure 95/67 L Pulse Oximetry 91 94 11/12/20 02:43 11/12/20 03:01 11/12/20 03:02 Temperature Pulse Rate 150 H 159 H 157 H Pulse Rate [Monitor] Respiratory Rate 16 27 H 27 H Blood Pressure Pulse Oximetry 11/12/20 03:27 11/12/20 03:28 11/12/20 03:30 Temperature 38.9 C H Pulse Rate 140 H 140 H 141 H Pulse Rate [Monitor] Respiratory Rate 30 H 30 H 29 H Blood Pressure 84/60 L Pulse Oximetry 94 11/12/20 03:41 11/12/20 04:00 11/12/20 04:15 Temperature 38.9 C H Pulse Rate 128 H 123 H Pulse Rate [Monitor] Respiratory Rate 31 H Blood Pressure 69/53 L 55/46 L Pulse Oximetry 96 11/12/20 04:20 11/12/20 04:25 11/12/20 04:30 Temperature Pulse Rate 121 H 120 H 113 H Pulse Rate [Monitor] Respiratory Rate 25 H Blood Pressure 57/39 L 66/50 L 79/70 L Pulse Oximetry 11/12/20 04:35 11/12/20 04:45 11/12/20 05:10 Temperature Pulse Rate 110 H 111 H 110 H Pulse Rate [Monitor] Respiratory Rate Blood Pressure 87/67 L 87/67 L Pulse Oximetry 100 11/12/20 05:12 11/12/20 06:00 11/12/20 07:15 Temperature 36.7 C Pulse Rate 113 H 109 H Pulse Rate [Monitor] 111 H Respiratory Rate 20 Blood
--- NOTE | 2020-11-12 18:20 | PC.NURSE ---
Updated son on current on condition and COVID status
[2020-11-12 18:59] LABS: SARS-CoV-2 RNA PCR Negative
[2020-11-12] MEDS: BUDESONIDE RESPULE NEB 0.5 MG/2 ML AMP INHALATION (20:08)
[2020-11-12] MEDS: HEPARIN SODIUM 5,000 UNITS/ML VIAL 5000 UNITS SUB-Q (20:59)
[2020-11-12] MEDS: CENTRAL LINE FLUSH 10 ML IV PUSH (21:00)
[2020-11-12] MEDS: FENTANYL 2,500MCG/NS250ML(*CRX 2,500 MCG/250 ML BAG 12.5 MCG IV CONT (22:26)
[2020-11-13] VITALS (37 sets, daily range): BP systolic 92–128; BP diastolic 62–83; PULSE 89–127; RESP 12–27; TEMP 36.8–38.9; O2SAT 96–100
[2020-11-13] MEDS: SODIUM CHLORIDE 0.9% IV 1,000 ML 75 ML IV CONT ×2 (01:36→17:11)
[2020-11-13 03:37] LABS: Alveolar/Arterial O2 Gradient 210.7 mmHg; Base Excess ABG 3.4 mEq/l (+/-2.0); Carboxyhemoglobin 0.2 % THb (0-2.0); Fractional Inspired Oxygen 50 %; HCO3 ABG 28.6 mEq/l (22.0-26.0); Methemoglobin ABG 0.7 %THb (0-1.5); Oxygen Content ABG 12.8 %vol (16.0-22.0); Oxygen Saturation ABG 97.2 % (95.0-100.0); Oxyhemoglobin 95.8 % THb (90.0-100.0); PCO2 ABG 46.3 mmHg (35.0-45.0); PO2 ABG 93.7 mmHg (80.0-100.0); PO2 FiO2 Ratio Arterial Blood 1.87 %; Reduced Hemoglobin 3.3 %THb (0-5.0); Total Hemoglobin 9.4 g/dL (12.0-18.0); pH ABG 7.408 (7.350-7.450)
[2020-11-13 03:38] LABS: Device VENTILATOR; Modified Allen's Test Pass; Site Drawn LEFT RADIAL
[2020-11-13 03:39] LABS: Arterial Blood Gas PEEP 10 cmH2O; Arterial Blood Gas Tidal Volume 420 ml; Arterial Blood Gas Vent Mode CMV; Arterial Blood Gas Ventilator rate 16 /MIN
[2020-11-13] MEDS: CENTRAL LINE FLUSH 10 ML IV PUSH ×3 (05:04→20:00)
[2020-11-13 05:52] LABS: Hematocrit 26.2 % (42.0-52.0); Immature Platelet Fraction Pct 8.3 % (0.9-11.2); Mean Corpuscular HGB Conc 30.5 g/dl (32-36); Mean Corpuscular Volume 81.9 fl (80-100); Mean Platelet Volume 10.7 fl (7.4-10.4); Platelet Count Result 131 k/mm3 (150-375); Red Cell Distribution Width 19.5 % (11.5-14.5); White Blood Count 22.6 K/mm3 (4.5-10.0)
[2020-11-13] MEDS: NOREPINEPHRINE 8 MG/D5W 250 ML 8 MG/250 ML BAG 22.5 MG IV CONT (05:56)
[2020-11-13 06:04] LABS: Lactic Acid Reflex 1.3 mmol/L (0.7-2.1)
[2020-11-13 06:05] LABS: Alanine Aminotransferase 13 U/L (4-50); Albumin Level 2.7 g/dL (3.5-5.1); Alkaline Phosphatase 56 U/L (38-126); Anion Gap 3 mmol/L (8-16); Aspartate Amino Transferase 27 U/L (17-59); Bilirubin,Total 0.5 mg/dL (0.2-1.3); Blood Urea Nitrogen 13 mg/dL (9-20); Calcium 7.1 mg/dL (8.4-10.2); Carbon Dioxide 32 mmol/L (22-30); Chloride 101 mmol/L (98-107); Estimated CRCL calculation 70 ml/min; Estimated Glomerular Filt Rate > 60; Glucose 124 mg/dL (75-110); Phosphorus 2.3 mg/dL (2.5-4.5); Potassium 3.1 mmol/L (3.4-5.0); Sodium 136 mmol/L (137-145)
[2020-11-13] MEDS: POTASSIUM CHLORIDE 20 MEQ PACKET (FOR LIQUID) 40 MEQ PO (07:53)
[2020-11-13] MEDS: KCL 20 MEQ/SW 100 ML 100 ML 50 MEQ IVPB (07:53)
[2020-11-13] MEDS: THIAMINE HCL 200 MG/2 ML VIAL 100 MG IV PUSH (08:02)
[2020-11-13] MEDS: HEPARIN SODIUM 5,000 UNITS/ML VIAL 5000 UNITS SUB-Q ×2 (08:02→20:00)
[2020-11-13] MEDS: PANTOPRAZOLE SODIUM IV 40 MG VIAL IV PUSH (08:02)
[2020-11-13] MEDS: BUDESONIDE RESPULE NEB 0.5 MG/2 ML AMP INHALATION ×2 (08:40→19:43)
[2020-11-13] MEDS: FOLIC ACID 1 MG/0.2 ML INJ IV PUSH (08:57)
--- NOTE | 2020-11-13 09:04 | WPDINTPN ---
Progress Note: A&P Assessment and Plan (1) Acute respiratory failure with hypoxemia: Code(s): J96.01 - Acute respiratory failure with hypoxia Status: Acute Assessment and Plan: Acute respiratory failure, patient intubated on 11/12/2020 -chest x-ray shows worsening diffuse infiltrates bilaterally, could be related to pulmonary edema, ARDS, pneumonia with component of aspiration pneumonitis/pneumonia and/or atelectasis -ABGs reviewed, will wean FiO2 to maintain O2 sats greater than 92%. Will wean PEEP if tolerated. -SARS-CoV-2 PCR reported as negative. Precautions have been discontinued. -continue bronchodilators -fentanyl and Versed for sedation. Daily sedation vacation trial if tolerated. (2) Septic shock: Code(s): A41.9 - Sepsis, unspecified organism; R65.21 - Severe sepsis with septic shock Status: Acute Assessment and Plan: Patient with septic shock, likely secondary to pneumonia. -continue on Levophed, will maintain MAP > 65 mmHg, to prevent end organ damage/failure -monitor urine output, renal function -continue Zosyn and vancomycin empirically. -cultures have been negative so far. -lactic acid acid initially was 5.0, trended down to 1.3 today. Will stop trending lactic acid any further. Continue to monitor hemodynamics closely. 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 May need to be transitioned to Precedex drip when he is ready to be extubated. -will continue to monitor -continue thiamine and folate (5) Acute hypokalemia: Code(s): E87.6 - Hypokalemia Status: Acute Assessment and Plan: Aggressively replete potassium (6) Suspected 2019-nCoV infection: Code(s): Z20.822 - Contact with and (suspected) exposure to COVID-19 Status: Acute Assessment and Plan: Diffuse bilateral infiltrates on chest x-ray along with fevers, altered mental status on arrival -SARS-CoV-2 PCR came back as negative. Precautions have been discontinued. Additional Plan Will discuss with family and updated them with patient's condition and plan of care Code status: Full code DVT prophylaxis with subcu heparin GI prophylaxis with IV pantoprazole Hold of tube feed for now since he is requiring high amount of Levophed. Critical care time spent: 46 minutes This dictation may have been done utilizing a voice recognition system. Attempts have been made to correct errors. However, there may be uncorrected grammatical, spelling, and recognition errors present. Due to a high probability of clinically significant, life threatening deterioration, the patient required my highest level of preparedness to intervene emergently and I personally spent this critical care time directly and personally managing the patient. This critical care time included obtaining a history; examining the patient; pulse oximetry; ordering and review of studies; arranging urgent treatment with development of a management plan; evaluation of patient's response to treatment; frequent reassessment; and discussions with other providers. It was exclusive of separately billable procedures and treating other patients and teaching time. Please see Assessment and Plan section and the rest of the note for further information on patient assessment and treatme
--- NOTE | 2020-11-13 13:09 | PC.NURSE ---
at 12;00 temp 102.1, Dr Suarez notified, blood cultures ordered and prn iv tylenol order recieved, see mar
[2020-11-13] MEDS: FENTANYL 2,500MCG/NS250ML(*CRX 2,500 MCG/250 ML BAG 17.5 MCG IV CONT (15:53)
--- NOTE | 2020-11-13 16:05 | PM.IMPN ---
Progress Note: A&P Assessment and Plan (1) Acute respiratory failure with hypoxemia: Code(s): J96.01 - Acute respiratory failure with hypoxia Status: Acute Assessment and Plan: The patient has been emergently intubated on arrival to the ICU. (2) Acute encephalopathy: Code(s): G93.40 - Encephalopathy, unspecified Status: Acute Assessment and Plan: Likely secondary to ETOH withdrawal and aspiraton pneumonia. with possible withdrawal seizure. (3) Septic shock: Code(s): A41.9 - Sepsis, unspecified organism; R65.21 - Severe sepsis with septic shock Status: Acute Assessment and Plan: Source of sepsis appears to be likely aspiration pneumonia. Pt is on vasopressor. (4) Alcohol withdrawal: Code(s): F10.239 - Alcohol dependence with withdrawal, unspecified Status: Acute Assessment and Plan: CIWA- AR protocol when the patient is extubated. (5) Acute hypokalemia: Code(s): E87.6 - Hypokalemia Status: Acute Assessment and Plan: KCL is being replaced. monitor potassium levels (6) Aspiration pneumonia: Code(s): J69.0 - Pneumonitis due to inhalation of food and vomit Status: Acute Assessment and Plan: Continue Zosyn IV And Vancomycin IV, awaiting cultures blood urine and sputum Subjective Date/time seen: 11/13/20 16:05 Interval history: 55 year old male with known history of alcoholism who presented to the hospital with acute altered mental status. needing intubated, pt is covid negative. Review of Systems Review of Systems: All systems reviewed & are unremarkable except as noted in HPI and below Exam Narrative: Exam Narrative: Intubated in icu, chronically ill appearing middle aged man on ventilator abdo soft non tender legs non edematous sedated Objective Data Vital Signs Vital Signs: Vital Signs - 24 hr 11/12/20 16:32 11/12/20 16:33 11/12/20 16:51 Temperature Pulse Rate 103 H 103 H 110 H Respiratory Rate 22 H 22 H Blood Pressure Pulse Oximetry 96 11/12/20 18:00 11/12/20 19:22 11/12/20 20:00 Temperature 36.6 C Pulse Rate 109 H 116 H 108 H Respiratory Rate 22 H 21 H Blood Pressure 116/71 121/77 115/79 Pulse Oximetry 96 98 11/12/20 20:10 11/12/20 20:24 11/12/20 20:58 Temperature Pulse Rate 117 H 113 H 116 H Respiratory Rate 23 H 23 H Blood Pressure 121/77 Pulse Oximetry 11/12/20 21:00 11/12/20 21:01 11/12/20 21:41 Temperature Pulse Rate 115 H 109 H 113 H Respiratory Rate 18 18 19 Blood Pressure 120/75 Pulse Oximetry 98 11/12/20 22:25 11/12/20 22:26 11/12/20 23:00 Temperature Pulse Rate 111 H 109 H 124 H Respiratory Rate 16 18 Blood Pressure 112/71 Pulse Oximetry 98 11/12/20 23:25 11/12/20 23:53 11/13/20 00:00 Temperature 37.3 C Pulse Rate 113 H 112 H Respiratory Rate 19 16 Blood Pressure 117/76 Pulse Oximetry 98 97 97 11/13/20 00:04 11/13/20 01:33 11/13/20 01:39 Temperature Pulse Rate 114 H 119 H 118 H Respiratory Rate 21 H 27 H Blood Pressure 117/76 128/83 Pulse Oximetry 97 11/13/20 01:42 11/13/20 01:50 11/13/20 04:00 Temperature 37.7 C H Pulse Rate 124 H 116 H 120 H Respiratory Rate 26 H 16 Blood Pressure 124/65 Pulse Oximetry 97 96 11/13/20 05:56 11/13/20 05:57 11/13/20 06:00 Temperature Pulse Rate 115 H 114 H 117 H Respiratory Rate 12 18 Blood Pressure 108/66 117/71 Pulse Oximetry 96 11/13/20 08:00 11/13/20 08:05 11/13/20 08:33 Temperature 38.0 C H Pulse Rate 122 H 122 H 122 H Respiratory Rate 14 18 14 Blood Pressure 121/71 Pulse Oximetry 100 11/13/20 08:40 11/13/20 08:51 11/13/20 09:29 Temperature Pulse Rate 124 H 125 H 125 H Respiratory Rate 19 19 Blood Pressure Pulse Oximetry 97 11/13/20 10:00 11/13/20 11:01 11/13/20 12:00 Temperature 38.9 C H Pulse Rate 121 H 124 H 123 H Respiratory Rate 16 18 Blood Pressu
[2020-11-13] MEDS: MIDAZOLAM 100MG/NS 100ML(*CRX) 100 MG/100 ML BAG IV CONT (18:59)
[2020-11-14] VITALS (38 sets, daily range): BP systolic 96–132; BP diastolic 63–96; PULSE 88–122; RESP 14–21; TEMP 37.1–37.9; O2SAT 93–100
--- NOTE | 2020-11-14 03:02 | PC.NURSE ---
Daylight Savings Time For Daylight Savings Time Ending in the Fall - Clocks are moved back. For Daylight Savings Time Beginning in the Spring - Clocks are moved ahead. For [facility], the time of change occurs at 0200 hrs. Time is taken from the hot mill observer. This entry on the patient's chart recognizes the change in time reflected during documentation. Example: 2 entries for vital signs may be charted for 0200 hrs.
[2020-11-14 04:06] LABS: Alveolar/Arterial O2 Gradient 144.8 mmHg; Base Excess ABG 3.2 mEq/l (+/-2.0); Carboxyhemoglobin 0.3 % THb (0-2.0); Device VENTILATOR; Fractional Inspired Oxygen 40 %; HCO3 ABG 29.7 mEq/l (22.0-26.0); Methemoglobin ABG 0.5 %THb (0-1.5); Modified Allen's Test Pass; Oxygen Content ABG 10.9 %vol (16.0-22.0); Oxygen Saturation ABG 93.9 % (95.0-100.0); Oxyhemoglobin 93.8 % THb (90.0-100.0); PCO2 ABG 56.8 mmHg (35.0-45.0); PO2 ABG 75.1 mmHg (80.0-100.0); PO2 FiO2 Ratio Arterial Blood 1.88 %; Reduced Hemoglobin 5.4 %THb (0-5.0); Site Drawn RIGHT RADIAL; Total Hemoglobin 8.2 g/dL (12.0-18.0); pH ABG 7.336 (7.350-7.450)
[2020-11-14 04:07] LABS: Arterial Blood Gas PEEP 8 cmH2O; Arterial Blood Gas Tidal Volume 420 ml; Arterial Blood Gas Vent Mode CMV; Arterial Blood Gas Ventilator rate 16 /MIN
[2020-11-14 04:37] LABS: Hematocrit 25.6 % (42.0-52.0); Hemoglobin 7.5 g/dL (14.0-18.0); Immature Platelet Fraction Pct 8.4 % (0.9-11.2); Mean Corpuscular HGB Conc 29.3 g/dl (32-36); Mean Corpuscular Hemoglobin 25.3 pg (26-34); Mean Corpuscular Volume 86.2 fl (80-100); Mean Platelet Volume 11.4 fl (7.4-10.4); Platelet Count Result 150 k/mm3 (150-375); Red Blood Count 2.97 M/mm3 (4.6-6.20); Red Cell Distribution Width 19.7 % (11.5-14.5); White Blood Count 13.8 K/mm3 (4.5-10.0)
[2020-11-14 04:49] LABS: Alanine Aminotransferase 13 U/L (4-50); Albumin Level 2.7 g/dL (3.5-5.1); Alkaline Phosphatase 64 U/L (38-126); Anion Gap 1 mmol/L (8-16); Aspartate Amino Transferase 28 U/L (17-59); Bilirubin,Total 0.4 mg/dL (0.2-1.3); Blood Urea Nitrogen 15 mg/dL (9-20); Calcium 7.4 mg/dL (8.4-10.2); Carbon Dioxide 33 mmol/L (22-30); Chloride 103 mmol/L (98-107); Estimated CRCL calculation 80 ml/min; Estimated Glomerular Filt Rate > 60; Glucose 98 mg/dL (75-110); Magnesium 2.1 mg/dL (1.6-2.3); Phosphorus 2.7 mg/dL (2.5-4.5); Potassium 3.5 mmol/L (3.4-5.0); Sodium 137 mmol/L (137-145)
[2020-11-14] MEDS: CENTRAL LINE FLUSH 10 ML IV PUSH ×3 (04:52→20:34)
[2020-11-14] MEDS: SODIUM CHLORIDE 0.9% IV 1,000 ML 75 ML IV CONT ×2 (06:49→20:29)
[2020-11-14] MEDS: SODIUM CHLORIDE 0.9% IV 500 ML IV CONT (08:01)
[2020-11-14] MEDS: METOCLOPRAMIDE HCL INJ 10 MG/2 ML VIAL 5 MG IV PUSH ×4 (08:04→23:44)
[2020-11-14] MEDS: HEPARIN SODIUM 5,000 UNITS/ML VIAL 5000 UNITS SUB-Q ×2 (08:04→20:34)
[2020-11-14] MEDS: FOLIC ACID 1 MG/0.2 ML INJ IV PUSH (08:04)
[2020-11-14] MEDS: PANTOPRAZOLE SODIUM IV 40 MG VIAL IV PUSH (08:04)
[2020-11-14] MEDS: THIAMINE HCL 200 MG/2 ML VIAL 100 MG IV PUSH (08:04)
--- NOTE | 2020-11-14 08:40 | WPDINTPN ---
Progress Note: A&P Assessment and Plan (1) Acute respiratory failure with hypoxemia: Code(s): J96.01 - Acute respiratory failure with hypoxia Status: Acute Assessment and Plan: Acute respiratory failure, patient intubated on 11/12/2020 -chest x-ray shows worsening diffuse infiltrates bilaterally, could be related to pulmonary edema, ARDS, pneumonia with component of aspiration pneumonitis/pneumonia and/or atelectasis -ABGs reviewed, will wean FiO2 to maintain O2 sats greater than 92%. Will wean PEEP if tolerated. -SARS-CoV-2 PCR reported as negative. Precautions have been discontinued. -continue bronchodilators -fentanyl and Versed for sedation. Daily sedation vacation trial if tolerated. I am expecting him to be ready for SBT trial in 1-2 days. I will get echocardiogram and upper the sound of the lower extremity. (2) Septic shock: Code(s): A41.9 - Sepsis, unspecified organism; R65.21 - Severe sepsis with septic shock Status: Acute Assessment and Plan: Patient with septic shock, likely secondary to pneumonia. -Levophed has been weaned off on 11/13 night. -monitor urine output, renal function. Urine output has been less yesterday. I will give him some fluid IV as a bolus. He may need the Lasix at some point if he continued to have low urine output with euvolemia or hypervolemia. -continue Zosyn and vancomycin empirically. -cultures have been negative so far. -lactic acid acid initially was 5.0, trended down to 1.3 today. Will stop trending lactic acid any further. Continue to monitor hemodynamics closely. 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 May need to be transitioned to Precedex drip when he is ready to be extubated. -will continue to monitor -continue thiamine and folate He was noticed to have significant shaking all over his body when sedatives were being weaned of yesterday and nursing care was provided at the bedside. It was not true seizures. (5) Acute hypokalemia: Code(s): E87.6 - Hypokalemia Status: Acute Assessment and Plan: Aggressively replete potassium (6) Suspected 2019-nCoV infection: Code(s): Z20.822 - Contact with and (suspected) exposure to COVID-19 Status: Acute Assessment and Plan: Diffuse bilateral infiltrates on chest x-ray along with fevers, altered mental status on arrival -SARS-CoV-2 PCR came back as negative. Precautions have been discontinued. Additional Plan Will discuss with family and updated them with patient's condition and plan of care Code status: Full code DVT prophylaxis with subcu heparin GI prophylaxis with IV pantoprazole Continue tube feed for now at trickle rate which is 20 May mL per hour and do not increase back to goal for now. I will start him on Reglan in the meantime. Critical care time spent: 36 minutes This dictation may have been done utilizing a voice recognition system. Attempts have been made to correct errors. However, there may be uncorrected grammatical, spelling, and recognition errors present. Due to a high probability of clinically significant, life threatening deterioration, the patient required my highest level of preparedness to intervene emergently and I personally spent this critical care time directly and yamini
[2020-11-14] MEDS: BUDESONIDE RESPULE NEB 0.5 MG/2 ML AMP INHALATION ×2 (08:46→20:15)
[2020-11-14] MEDS: FENTANYL 2,500MCG/NS250ML(*CRX 2,500 MCG/250 ML BAG 12.5 MCG IV CONT (08:55)
--- NOTE | 2020-11-14 09:03 | PM.IMPN ---
Progress Note: A&P Assessment and Plan (1) Aspiration pneumonia: Qualifiers: Aspiration pneumonia type: unspecified Laterality: unspecified laterality Lung location: unspecified part of lung Qualified Code(s): J69.0 - Pneumonitis due to inhalation of food and vomit Code(s): J69.0 - Pneumonitis due to inhalation of food and vomit Status: Acute Assessment and Plan: Continue Zosyn IV And Vancomycin IV, awaiting cultures blood urine and sputum (2) Acute respiratory failure with hypoxemia: Code(s): J96.01 - Acute respiratory failure with hypoxia Status: Acute Assessment and Plan: The patient has been emergently intubated on arrival to the ICU. (3) Acute encephalopathy: Code(s): G93.40 - Encephalopathy, unspecified Status: Acute Assessment and Plan: Likely secondary to ETOH withdrawal and aspiraton pneumonia. with possible withdrawal seizure. (4) Septic shock: Code(s): A41.9 - Sepsis, unspecified organism; R65.21 - Severe sepsis with septic shock Status: Acute Assessment and Plan: Source of sepsis appears to be likely aspiration pneumonia. (5) Alcohol withdrawal: Qualifiers: Complication of substance-induced condition: with perceptual disturbance Qualified Code(s): F10.232 - Alcohol dependence with withdrawal with perceptual disturbance Code(s): F10.239 - Alcohol dependence with withdrawal, unspecified Status: Acute Assessment and Plan: CIWA- [place] protocol when the patient is extubated. (6) Acute hypokalemia: Code(s): E87.6 - Hypokalemia Status: Acute Assessment and Plan: KCL replaced. monitor potassium levels Subjective Date/time seen: 11/14/20 09:03 Interval history: 55 year old male with known history of alcoholism who presented to the hospital with acute altered mental status. needing intubated, pt is covid negative. Review of Systems Review of Systems: ROS unobtainable: Yes unobtainable due to medical condition Exam Narrative: Exam Narrative: Intubated in icu, chronically ill appearing middle aged man on ventilator abdo soft non tender legs non edematous sedated Objective Data Vital Signs Vital Signs: Vital Signs - 24 hr 11/13/20 08:05 11/13/20 08:33 11/13/20 08:40 Temperature Pulse Rate 122 H 122 H 124 H Respiratory Rate 18 14 19 Blood Pressure Pulse Oximetry 11/13/20 08:51 11/13/20 09:29 11/13/20 10:00 Temperature Pulse Rate 125 H 125 H 121 H Respiratory Rate 19 16 Blood Pressure 104/67 Pulse Oximetry 97 99 11/13/20 11:01 11/13/20 12:00 11/13/20 13:04 Temperature 102.1 F H Pulse Rate 124 H 123 H 127 H Respiratory Rate 18 18 Blood Pressure 105/78 Pulse Oximetry 98 97 11/13/20 13:59 11/13/20 14:00 11/13/20 15:45 Temperature 100.2 F H Pulse Rate 126 H 122 H 122 H Respiratory Rate 16 16 Blood Pressure 103/63 Pulse Oximetry 98 98 11/13/20 15:53 11/13/20 16:00 11/13/20 16:54 Temperature 99.6 F Pulse Rate 122 H 110 H 106 H Respiratory Rate 16 16 Blood Pressure 104/66 Pulse Oximetry 99 97 11/13/20 18:00 11/13/20 18:59 11/13/20 19:44 Temperature Pulse Rate 100 100 97 Respiratory Rate 16 16 16 Blood Pressure 92/62 L Pulse Oximetry 99 11/13/20 19:45 11/13/20 19:48 11/13/20 19:49 Temperature Pulse Rate 97 96 96 Respiratory Rate 16 16 Blood Pressure 93/71 L Pulse Oximetry 100 11/13/20 20:00 11/13/20 21:51 11/13/20 23:11 Temperature 98.2 F Pulse Rate 100 98 94 Respiratory Rate 16 16 Blood Pressure 98/64 L 97/69 L Pulse Oximetry 100 97 98 11/13/20 23:30 11/13/20 23:55 11/14/20 00:00 Temperature 98.2 F Pulse Rate 92 89 88 Respiratory Rate 16 16 Blood Pressure 98/70 L Pulse Oximetry 97 100 11/14/20 00:27 11/14/20 00:28 11/14/20 01:55 Temperature Pulse Rate 92 92 94 Respiratory Rate 17 16 Blood Pressure 103/72 Pulse Oxi
[2020-11-14] MEDS: MIDAZOLAM 100MG/NS 100ML(*CRX) 100 MG/100 ML BAG IV CONT (16:47)
[2020-11-14 19:34] LABS: Vancomycin Trough 6.8 ug/mL (10.0-20.0)
[2020-11-15] VITALS (36 sets, daily range): BP systolic 102–139; BP diastolic 64–89; PULSE 76–116; RESP 16–17; TEMP 37.1–38; O2SAT 94–100
--- NOTE | 2020-11-15 | ECHO_ITS ---
Patient Info Name: Jones Painting Age: 55 years : 1965 Gender: Male Ht: 68 in Wt: 205 lbs BSA: 2.14 m2 HR: 115 bpm BP: 131 / 80 mmHg Heart Rhythm: Sinus Rhythm Technical Quality: Good Exam Date: 11/15/2020 8:59 AM Exam Location: [facility] Patient Status: Inpatient Admit Date: 11/12/2020 Staff Ordering Physician: Abigail Suarez MD Machine Shop Instructor: Iglesia Hay, JONATHANCS, RT Attending Provider: Armando Platt MD Exam Type: CA echo doppler color flow Study Info Indications J80 - Acute respiratory distress syndrome Complete two-dimensional, color flow and Doppler transthoracic echocardiogram is performed. Strain analysis performed. Summary 1. Complete two-dimensional, color flow and Doppler transthoracic echocardiogram is performed. 2. The aortic root size at the sinus of Valsalva is mildly dilated. 3. Otherwise normal exam. Left Ventricle Left ventricular chamber dimension is normal. Left ventricular systolic function is normal, estimated at 65-70%. The left ventricular diastolic function is normal. Right Ventricle Right ventricular chamber dimension is normal. Left Atria Left atrial chamber dimension is normal. Right Atria Right atrial chamber dimension is normal. Aortic Valve The aortic valve is normal. Pulmonic Valve The pulmonic valve is not well visualized. Mitral Valve The mitral valve has normal leaflets. Tricuspid Valve The tricuspid valve leaflets are normal. Pericardium/Pleural The pericardium appears normal. Aorta The aortic root size at the sinus of Valsalva is mildly dilated. Left Ventricular Outflow Tract Name Value Normal LVOT 2D LVOT Diameter 2.1 cm LVOT Doppler LVOT Peak Gradient 7 mmHg LVOT Mean Gradient 4 mmHg LVOT VTI 19 cm LVOT VTI/AV VTI Ratio 0.8 LVOT Stroke Volume 66 ml LVOT CO 7.5 l/min LVOT CI 3.5 l/min/m2 Mitral Valve Name Value Normal MV Doppler MV Decel [place] 409 cm/s2 MV PHT 43 ms MV Area (PHT) 5.1 cm2 4.0-5.0 MV Diastolic Function MV E Peak Velocity 61 cm/s MV A Peak Velocity 89 cm/s MV E/A 0.7 MV Decel Time 150 ms MV Annular TDI MV E/e' (Septal) 4.8 <=8.0 MV E/e' (Lateral) 6.2 <=8.0 MV E/e' (Average) 5.5
[2020-11-15 04:01] LABS: pH ABG 7.373 (7.350-7.450)
[2020-11-15 04:02] LABS: Base Excess ABG 5.1 mEq/l (+/-2.0); HCO3 ABG 31.1 mEq/l (22.0-26.0); Oxygen Saturation ABG 90.4 % (95.0-100.0); PCO2 ABG 54.6 mmHg (35.0-45.0); PO2 ABG 61.1 mmHg (80.0-100.0)
[2020-11-15 04:03] LABS: Oxygen Content ABG 10.2 %vol (16.0-22.0); Oxyhemoglobin 90.4 % THb (90.0-100.0)
[2020-11-15 04:04] LABS: Carboxyhemoglobin 0.5 % THb (0-2.0); Methemoglobin ABG 0.5 %THb (0-1.5); PO2 FiO2 Ratio Arterial Blood 1.75 %; Reduced Hemoglobin 8.6 %THb (0-5.0)
[2020-11-15 04:05] LABS: Device VENTILATOR; Fractional Inspired Oxygen 35 %; Modified Allen's Test Pass; Site Drawn RIGHT RADIAL
[2020-11-15 04:06] LABS: Arterial Blood Gas PEEP 8 cmH2O; Arterial Blood Gas Tidal Volume 420 ml; Arterial Blood Gas Vent Mode CMV; Arterial Blood Gas Ventilator rate 16 /MIN
[2020-11-15 04:15] LABS: Hemoglobin 7.2 g/dL (14.0-18.0); Mean Corpuscular Hemoglobin 25.5 pg (26-34); Mean Corpuscular Volume 85.1 fl (80-100); Mean Platelet Volume 10.7 fl (7.4-10.4); Platelet Count Result 170 k/mm3 (150-375); Red Blood Count 2.82 M/mm3 (4.6-6.20); Red Cell Distribution Width 19.5 % (11.5-14.5); White Blood Count 8.4 K/mm3 (4.5-10.0)
[2020-11-15 04:28] LABS: Anion Gap 0 mmol/L (8-16); Blood Urea Nitrogen 12 mg/dL (9-20); Calcium 7.9 mg/dL (8.4-10.2); Carbon Dioxide 33 mmol/L (22-30); Chloride 103 mmol/L (98-107); Estimated CRCL calculation 103 ml/min; Estimated Glomerular Filt Rate > 60; Glucose 103 mg/dL (75-110); Magnesium 1.8 mg/dL (1.6-2.3); Phosphorus 2.6 mg/dL (2.5-4.5); Potassium 3.8 mmol/L (3.4-5.0); Sodium 136 mmol/L (137-145)
[2020-11-15] MEDS: METOCLOPRAMIDE HCL INJ 10 MG/2 ML VIAL 5 MG IV PUSH ×4 (05:39→23:41)
[2020-11-15] MEDS: CENTRAL LINE FLUSH 10 ML IV PUSH (05:40)
[2020-11-15] MEDS: BUDESONIDE RESPULE NEB 0.5 MG/2 ML AMP INHALATION ×2 (07:48→20:10)
[2020-11-15] MEDS: THIAMINE HCL 200 MG/2 ML VIAL 100 MG IV PUSH (08:23)
[2020-11-15] MEDS: FUROSEMIDE INJ 40 MG/4 ML VIAL IV PUSH (08:23)
[2020-11-15] MEDS: PANTOPRAZOLE SODIUM IV 40 MG VIAL IV PUSH (08:23)
[2020-11-15] MEDS: HEPARIN SODIUM 5,000 UNITS/ML VIAL 5000 UNITS SUB-Q ×2 (08:24→20:28)
[2020-11-15] MEDS: FOLIC ACID 1 MG/0.2 ML INJ IV PUSH (08:24)
--- NOTE | 2020-11-15 09:03 | WPDINTPN ---
Progress Note: A&P Assessment and Plan (1) Anemia: Code(s): D64.9 - Anemia, unspecified Status: Acute Assessment and Plan: Could be multifactorial, dilution as patient is positive 13.5 L in fluid balance, patient with alcohol use, bone marrow suppression, medications, hemolysis -will check haptoglobin, LDH, folic acid and B12, iron panel, stool for occult blood -transfuse if hemoglobin less than 7.0 (2) Acute respiratory failure with hypoxemia: Code(s): J96.01 - Acute respiratory failure with hypoxia Status: Acute Assessment and Plan: Acute respiratory failure, patient intubated on 11/12/2020 -11/15 chest x-ray shows worsening diffuse lung disease consistent with pneumonia versus pulmonary edema -ABGs reviewed, patient currently on 40% FiO2 and 8 of PEEP. -SARS-CoV-2 PCR reported as negative. Precautions have been discontinued. -continue bronchodilators -fentanyl and Versed for sedation. Daily sedation vacation trial if tolerated. -will diurese patient today -echocardiogram pending -lower extremity venous Dopplers on 11/14/2020: Negative for DVT bilaterally (3) Septic shock: Code(s): A41.9 - Sepsis, unspecified organism; R65.21 - Severe sepsis with septic shock Status: Acute Assessment and Plan: Patient with septic shock, likely secondary to pneumonia. -Levophed has been weaned off on 11/13 night. -sputum cultures growing group B strep, continue Zosyn -blood cultures negative x2, will discontinue vancomycin -continue hemodynamics and urine output (4) Withdrawal seizures: Code(s): F19.239 - Other psychoactive substance dependence with withdrawal, unspecified; R56.9 - Unspecified convulsions Status: Chronic Assessment and Plan: Patient presented with withdrawal seizures, lactic acid elevation could be related to seizures and/or septic shock -CT scan of the brain on 11/12/2020: Did not show any acute intracranial abnormality -continue Versed and fentanyl (5) Alcohol withdrawal: Qualifiers: Complication of substance-induced condition: with perceptual disturbance Qualified Code(s): F10.232 - Alcohol dependence with withdrawal with perceptual disturbance Code(s): F10.239 - Alcohol dependence with withdrawal, unspecified Status: Acute Assessment and Plan: Patient stopped drinking about 4 days prior to admission, presented with possible withdrawal seizure -currently on Versed and fentanyl infusion. May need to be transitioned to Precedex drip when he is ready to be extubated. -will continue to monitor -continue thiamine and folate He was noticed to have significant shaking all over his body when sedatives were being weaned of yesterday and nursing care was provided at the bedside. It was not true seizures. (6) Acute hypokalemia: Code(s): E87.6 - Hypokalemia Status: Acute Assessment and Plan: Resolved (7) Suspected 2019-nCoV infection: Code(s): Z20.822 - Contact with and (suspected) exposure to COVID-19 Status: Acute Assessment and Plan: Diffuse bilateral infiltrates on chest x-ray along with fevers, altered mental status on arrival -SARS-CoV-2 PCR came back as negative. Precautions have been discontinued. Additional Plan Will discuss with family and updated them with patient's condition and plan of care Code status: Full code DVT prophylaxis with subcu heparin GI prophylaxis with IV pantoprazole Continue tube feeds, continue Reglan Critical care time spent: 34 minutes This dictation may have been done utilizing a voice recognition system. Attempts have been made to correct errors. However, there may be uncorrected grammatical, spelling, and recognition errors present. Due to a high probability of clinically significant, life threatening deterioration, the patient required my highest level of preparedness to intervene emergently and I personally spent this critical care time directly
[2020-11-15 09:34] LABS: Lactate Dehydrogenase 352 U/L (313-618)
[2020-11-15 10:21] LABS: Iron 17 ug/dL (49-181)
--- NOTE | 2020-11-15 10:40 | PCDIET ---
ICU Rounding Note: Patient tolerating Vital 1.5 at 60mL/hr goal rate with 30mL water flush every 4 hours. Documented 400mL residual overnight for which feeding was held. Reglan started, and residuals have been declining with resumed tube feeds. Last recorded weight is 101.7kg which is significantly increased from last review. Noted significantly positive I/O, though recommend reweighing to ensure accurate. Bowel Motility: BM on 11/12/20 per I/O. Labs Reviewed: Hgb (7.2), Hct (24.0), Na (136), Alb (2.7) Meds Noted: Pulmicort, Fentanyl, Versed, Thiamine, Folic Acid, Heparin, Protonix, Vancomycin, Xopenex, Reglan, Zosyn, Lasix Additional Notes: Corrected calcium normal. Left elbow with laceration from fall prior to admission. No documented pressure sores. Following daily in ICU rounds. Assessing/reassessing every Sunday/Sunday.
[2020-11-15] MEDS: FENTANYL 2,500MCG/NS250ML(*CRX 2,500 MCG/250 ML BAG IV CONT (10:50)
[2020-11-15 11:49] LABS: Percent Iron Saturation 8 % (20-50)
--- NOTE | 2020-11-15 14:31 | PM.IMPN ---
Progress Note: A&P Assessment and Plan (1) Aspiration pneumonia: Qualifiers: Aspiration pneumonia type: unspecified Laterality: unspecified laterality Lung location: unspecified part of lung Qualified Code(s): J69.0 - Pneumonitis due to inhalation of food and vomit Code(s): J69.0 - Pneumonitis due to inhalation of food and vomit Status: Acute Assessment and Plan: Continue Zosyn IV And Vancomycin IV, follow cultures (2) Acute respiratory failure with hypoxemia: Code(s): J96.01 - Acute respiratory failure with hypoxia Status: Acute Assessment and Plan: The patient has been emergently intubated (3) Acute encephalopathy: Code(s): G93.40 - Encephalopathy, unspecified Status: Acute Assessment and Plan: Likely secondary to ETOH withdrawal and aspiraton pneumonia. with possible withdrawal seizure. (4) Septic shock: Code(s): A41.9 - Sepsis, unspecified organism; R65.21 - Severe sepsis with septic shock Status: Acute Assessment and Plan: Source of sepsis appears to be likely aspiration pneumonia. (5) Alcohol withdrawal: Qualifiers: Complication of substance-induced condition: with perceptual disturbance Qualified Code(s): F10.232 - Alcohol dependence with withdrawal with perceptual disturbance Code(s): F10.239 - Alcohol dependence with withdrawal, unspecified Status: Acute Assessment and Plan: [facility]- [place] protocol (6) Acute hypokalemia: Code(s): E87.6 - Hypokalemia Status: Acute Assessment and Plan: KCL replaced. monitor potassium levels Subjective Date/time seen: 11/15/20 14:31 Interval history: 55 year old male with known history of alcoholism who presented to the hospital with acute altered mental status. needing intubated, pt is covid negative. Pt is on a ventilator and tubes feeds Review of Systems Review of Systems: All systems reviewed & are unremarkable except as noted in HPI and below ROS unobtainable: Yes unobtainable due to endotracheal tube and unobtainable due to medical condition Exam Narrative: Exam Narrative: Intubated in icu, chronically ill appearing middle aged man on ventilator abdo soft non tender legs non edematous sedated Objective Data Vital Signs Vital Signs: Vital Signs - 24 hr 11/14/20 16:00 11/14/20 16:43 11/14/20 16:47 Temperature 37.3 C Pulse Rate 95 95 95 Respiratory Rate 16 16 16 Blood Pressure 96/63 L Pulse Oximetry 99 11/14/20 17:14 11/14/20 18:00 11/14/20 19:44 Temperature Pulse Rate 93 92 98 Respiratory Rate 16 17 Blood Pressure 114/72 Pulse Oximetry 100 98 100 11/14/20 20:00 11/14/20 20:01 11/14/20 20:38 Temperature 37.2 C Pulse Rate 98 98 102 H Respiratory Rate 16 16 Blood Pressure 119/80 Pulse Oximetry 100 100 11/14/20 22:00 11/14/20 23:02 11/14/20 23:32 Temperature Pulse Rate 88 88 92 Respiratory Rate 16 16 Blood Pressure 113/72 Pulse Oximetry 100 100 100 11/15/20 00:00 11/15/20 01:51 11/15/20 02:03 Temperature 37.6 C Pulse Rate 105 H 114 H 114 H Respiratory Rate 16 16 Blood Pressure 128/81 Pulse Oximetry 98 100 11/15/20 02:15 11/15/20 03:21 11/15/20 03:24 Temperature 38.0 C H Pulse Rate 116 H 109 H 109 H Respiratory Rate 17 16 16 Blood Pressure 139/78 Pulse Oximetry 100 100 11/15/20 03:25 11/15/20 04:00 11/15/20 05:05 Temperature 37.8 C H Pulse Rate 107 H 106 H 108 H Respiratory Rate 16 17 Blood Pressure 128/78 Pulse Oximetry 96 100 11/15/20 06:08 11/15/20 07:48 11/15/20 07:54 Temperature Pulse Rate 104 H 91 98 Respiratory Rate 16 16 16 Blood Pressure 131/80 Pulse Oximetry 94 97 11/15/20 07:57 11/15/20 07:58 11/15/20 08:00 Temperature 37.6 C Pulse Rate 104 H 92 106 H Respiratory Rate 16 16 16 Blood Pressure 133/89 Pulse Oximetry 97 11/15/20 08:09 11/15/20 10:00 11/15/20 10:50 Temperatu
[2020-11-15 17:01] LABS: Folic Acid 9.4 ng/mL (2.76->20)
[2020-11-16] VITALS (38 sets, daily range): BP systolic 88–140; BP diastolic 59–89; PULSE 83–132; RESP 12–21; TEMP 36.4–37.2; O2SAT 90–100
[2020-11-16 04:31] LABS: Hematocrit 24.2 % (42.0-52.0); Hemoglobin 7.3 g/dL (14.0-18.0); Mean Corpuscular HGB Conc 30.2 g/dl (32-36); Mean Corpuscular Hemoglobin 25.4 pg (26-34); Mean Corpuscular Volume 84.3 fl (80-100); Platelet Count Result 221 k/mm3 (150-375); Red Blood Count 2.87 M/mm3 (4.6-6.20); Red Cell Distribution Width 19.5 % (11.5-14.5); White Blood Count 4.9 K/mm3 (4.5-10.0)
[2020-11-16 04:48] LABS: Magnesium 1.6 mg/dL (1.6-2.3); Phosphorus 3.5 mg/dL (2.5-4.5)
[2020-11-16 04:49] LABS: Anion Gap 2 mmol/L (8-16); Blood Urea Nitrogen 13 mg/dL (9-20); Calcium 8.3 mg/dL (8.4-10.2); Carbon Dioxide 36 mmol/L (22-30); Chloride 100 mmol/L (98-107); Estimated CRCL calculation 102 ml/min; Estimated Glomerular Filt Rate > 60; Glucose 137 mg/dL (75-110); Potassium 3.6 mmol/L (3.4-5.0); Sodium 138 mmol/L (137-145)
[2020-11-16 05:30] LABS: Alveolar/Arterial O2 Gradient 113.4 mmHg; Carboxyhemoglobin 0.7 % THb (0-2.0); Fractional Inspired Oxygen 40 %; HCO3 ABG 31.7 mEq/l (22.0-26.0); Methemoglobin ABG 0.6 %THb (0-1.5); Oxygen Content ABG 11.9 %vol (16.0-22.0); Oxygen Saturation ABG 98.8 % (95.0-100.0); Oxyhemoglobin 97.2 % THb (90.0-100.0); PCO2 ABG 40.4 mmHg (35.0-45.0); PO2 ABG 125.3 mmHg (80.0-100.0); PO2 FiO2 Ratio Arterial Blood 3.13 %; Reduced Hemoglobin 1.5 %THb (0-5.0); Total Hemoglobin 8.5 g/dL (12.0-18.0)
[2020-11-16 05:34] LABS: Device VENTILATOR; Modified Allen's Test Unable to perform; Site Drawn RIGHT RADIAL; pH ABG 7.512 (7.350-7.450)
[2020-11-16 05:35] LABS: Arterial Blood Gas PEEP 8 cmH2O; Arterial Blood Gas Tidal Volume 420 ml; Arterial Blood Gas Vent Mode CMV; Arterial Blood Gas Ventilator rate 16 /MIN
[2020-11-16] MEDS: METOCLOPRAMIDE HCL INJ 10 MG/2 ML VIAL 5 MG IV PUSH ×3 (06:22→17:45)
[2020-11-16] MEDS: FUROSEMIDE INJ 40 MG/4 ML VIAL IV PUSH (08:02)
[2020-11-16] MEDS: dexmedeTOMIDine 400 MCG/100 ML 400 MCG/100 ML BAG IV CONT (08:05)
[2020-11-16] MEDS: BUDESONIDE RESPULE NEB 0.5 MG/2 ML AMP INHALATION ×2 (08:08→21:07)
[2020-11-16] MEDS: THIAMINE HCL 200 MG/2 ML VIAL 100 MG IV PUSH (08:13)
[2020-11-16] MEDS: HEPARIN SODIUM 5,000 UNITS/ML VIAL 5000 UNITS SUB-Q ×2 (08:13→21:23)
[2020-11-16] MEDS: PANTOPRAZOLE SODIUM IV 40 MG VIAL IV PUSH (08:14)
[2020-11-16] MEDS: FOLIC ACID 1 MG/0.2 ML INJ IV PUSH (08:18)
--- NOTE | 2020-11-16 08:33 | WPDINTPN ---
Progress Note: A&P Assessment and Plan (1) Anemia: Qualifiers: Anemia type: unspecified type Qualified Code(s): D64.9 - Anemia, unspecified Code(s): D64.9 - Anemia, unspecified Status: Acute Assessment and Plan: Could be multifactorial, dilution as patient is positive 13.5 L in fluid balance, patient with alcohol use, bone marrow suppression, medications, hemolysis -will LDH, folic acid and B12 within normal limits -iron panel shows possible anemia of chronic disease iron panel, -stool for occult blood was negative -transfuse if hemoglobin less than 7.0 (2) Acute respiratory failure with hypoxemia: Code(s): J96.01 - Acute respiratory failure with hypoxia Status: Acute Assessment and Plan: Acute respiratory failure, patient intubated on 11/12/2020 -11/16 chest x-ray shows stable diffuse lung disease consistent with pneumonia versus pulmonary edema -ABGs reviewed, patient currently on 40% FiO2 and 8 of PEEP. -SARS-CoV-2 PCR reported as negative. Precautions have been discontinued. -continue bronchodilators -will switch fentanyl Versed to Precedex, will place patient on SBT and evaluate for extubation -diuresed very well yesterday, will diurese again today -echocardiogram pending -lower extremity venous Dopplers on 11/14/2020: Negative for DVT bilaterally (3) Septic shock: Code(s): A41.9 - Sepsis, unspecified organism; R65.21 - Severe sepsis with septic shock Status: Acute Assessment and Plan: Patient with septic shock, likely secondary to pneumonia. -Levophed has been weaned off on 11/13 night. -sputum cultures growing group B strep, continue Zosyn -blood cultures negative x2, will discontinue vancomycin -continue hemodynamics and urine output (4) Withdrawal seizures: Code(s): F19.239 - Other psychoactive substance dependence with withdrawal, unspecified; R56.9 - Unspecified convulsions Status: Chronic Assessment and Plan: Patient presented with withdrawal seizures, lactic acid elevation could be related to seizures and/or septic shock -CT scan of the brain on 11/12/2020: Did not show any acute intracranial abnormality -patient will be started on Precedex infusion (5) Alcohol withdrawal: Qualifiers: Complication of substance-induced condition: with perceptual disturbance Qualified Code(s): F10.232 - Alcohol dependence with withdrawal with perceptual disturbance Code(s): F10.239 - Alcohol dependence with withdrawal, unspecified Status: Acute Assessment and Plan: Patient stopped drinking about 4 days prior to admission, presented with possible withdrawal seizure -currently on Versed and fentanyl infusion. May need to be transitioned to Precedex drip when he is ready to be extubated. -will continue to monitor -continue thiamine and folate (6) Acute hypokalemia: Code(s): E87.6 - Hypokalemia Status: Acute Assessment and Plan: Patient being diuresed, will replace magnesium and potassium (7) Suspected 2019-nCoV infection: Code(s): Z20.822 - Contact with and (suspected) exposure to COVID-19 Status: Acute Assessment and Plan: Diffuse bilateral infiltrates on chest x-ray along with fevers, altered mental status on arrival -SARS-CoV-2 PCR came back as negative. Precautions have been discontinued. Additional Plan Discussed with daughter and updated her with patient's condition and plan of care. I answered all questions Code status: Full code DVT prophylaxis with subcu heparin GI prophylaxis with IV pantoprazole Continue tube feeds, continue Reglan Critical care time spent: 33 minutes This dictation may have been done utilizing a voice recognition system. Attempts have been made to correct errors. However, there may be uncorrected grammatical, spelling, and recognition errors present. Due to a high probability of clinically significant, life threatening deterioration,
--- NOTE | 2020-11-16 09:33 | PM.IMPN ---
Progress Note: A&P Assessment and Plan (1) Aspiration pneumonia: Qualifiers: Aspiration pneumonia type: unspecified Laterality: unspecified laterality Lung location: unspecified part of lung Qualified Code(s): J69.0 - Pneumonitis due to inhalation of food and vomit Code(s): J69.0 - Pneumonitis due to inhalation of food and vomit Status: Acute Assessment and Plan: X-ray on admission was clear but soon after was developing bilateral opacities. Concern for aspiration pneumonia. Currently on Zosyn IV. Vancomycin IV has been stopped. B strep. Blood cultures remain negative. (2) Acute respiratory failure with hypoxemia: Code(s): J96.01 - Acute respiratory failure with hypoxia Status: Acute Assessment and Plan: Patient remains on mechanical ventilation at this time. Continue Xopenex and Pulmicort. Continue IV antibiotics. Chest x-ray reviewed today and agree with Lasix. Monitor urine output. Appreciate electronic news gathering editor input. (3) Acute encephalopathy: Code(s): G93.40 - Encephalopathy, unspecified Status: Acute Assessment and Plan: CT of the brain showing no acute findings on admission. Likely secondary to ETOH withdrawal and aspiraton pneumonia with possible withdrawal seizure. Patient currently sedated. Reassess once he is awake and alert. (4) Septic shock: Code(s): A41.9 - Sepsis, unspecified organism; R65.21 - Severe sepsis with septic shock Status: Acute Assessment and Plan: Source of sepsis appears to be aspiration pneumonia. Patient able to be weaned off of Levophed on November 14. Blood pressure remains stable. Continue to monitor. (5) Alcohol withdrawal: Qualifiers: Complication of substance-induced condition: with perceptual disturbance Qualified Code(s): F10.232 - Alcohol dependence with withdrawal with perceptual disturbance Code(s): F10.239 - Alcohol dependence with withdrawal, unspecified Status: Acute Assessment and Plan: Patient is sedated. Continue thiamine and folate. (6) Acute hypokalemia: Code(s): E87.6 - Hypokalemia Status: Acute Assessment and Plan: KCL replaced. Potassium normal today. Continue to follow. (7) DVT prophylaxis: Code(s): Z29.9 - Encounter for prophylactic measures, unspecified Status: Acute Assessment and Plan: Heparin Subjective Date/time seen: 11/16/20 09:33 Interval history: 55yo male with known history of alcoholism who presented to the hospital with acute altered mental status. COVID negative. Intubated with central line placed on 11/12. Assuming care. Chart reviewed. Some oral secretions but minimal secretions from the ET tube. Tolerating tube feedings. Patient remains intubated. Sedation just changed to Precedex this morning. Dose of Lasix given also this morning. Review of Systems Review of Systems: ROS unobtainable: Yes unobtainable due to endotracheal tube Exam Narrative: Exam Narrative: Tm AF 98.5 113/80 114 14 95% ra Gen -intubated and sedated HEENT -ET tube and OG tube secured. Chest -lungs clear anteriorly. CV - RRR S1/S2. Telemetry showing no significant dysrhythmias but occasional sinus tachycardia. Abd - Soft, NT/ND, Positive BS -Gonzales secured draining pale yellow urine. Ext - No pedal edema. 2+ DP pulses bilaterally. Mild soft tissue swelling in the upper extremities. Neuro -sedated Skin - Warm and dry Objective Data Vital Signs Vital Signs: Vital Signs - 24 hr 11/15/20 10:00 11/15/20 10:50 11/15/20 11:21 Temperature Pulse Rate 114 H 114 H 105 H Respiratory Rate 16 16 Blood Pressure 137/80 Pulse Oximetry 96 96 11/15/20 12:00 11/15/20 13:54 11/15/20 14:00 Temperature 98.8 F Pulse Rate 99 108 H 113 H Respiratory Rate 16 16 16 Blood Pressure 102/64 120/75 Pulse Oximetry 97 96 96 11/15/20 14:05 11/15/20 16:00 11/15/20 17:11 Te
[2020-11-16] MEDS: POTASSIUM CHLORIDE 20 MEQ PACKET (FOR LIQUID) 40 MEQ FEED TUBE (09:58)
[2020-11-16] MEDS: MAGNESIUM SULF 2 GM/WATER 50ML 2 GM/50 ML BAG IVPB (09:58)
--- NOTE | 2020-11-16 10:30 | PCDIET ---
Nutrition Follow-Up Complete: Nutrition Diagnosis: Inadequate oral intake related to mechanical vent as evidenced by tube feedings. Nutrition Goal: Meet estimated nutritional needs Goal met. Patient tolerating Vital 1.5 at 60mL/hr goal rate with 30mL water flush every 4 hours. MD order to hold tube feedings for breathing trial. Last recorded weight is 99.8 kg which is decreased from last review. -I/O noted. Bowel Motility: Last documented BM on 11/12/20. Labs Reviewed: Hgb (7.3), Hct (24.2), Glu (137), Ca (8.3) Meds Noted: Pulmicort, Precedex, Folic Acid, Xopenex, Reglan, Lasix, Protonix, Zosyn, Thiamine Additional Notes: Left elbow laceration; no documented pressure sores. Will continue to monitor with same goal. Nutrition Monitoring and Evaluation: Follow up every Sunday and Sunday. Follow daily in ICU rounds.
[2020-11-16] MEDS: MIDAZOLAM HCL (*CRX) 2 MG/2 ML VIAL IV PUSH ×2 (17:40→19:33)
[2020-11-16] MEDS: dexmedeTOMIDine 400 MCG/100 ML 400 MCG/100 ML BAG 12.48 MCG IV CONT (22:51)
[2020-11-17] VITALS (27 sets, daily range): BP systolic 113–156; BP diastolic 70–99; PULSE 77–112; RESP 13–26; TEMP 36.2–37.2; O2SAT 91–99
--- NOTE | 2020-11-17 | PM.EVENT ---
Event Note Event Note Event Note: On-call note Nursing staff called me and informed me that the patient has self extubated. On arrival to bedside the patient is tachycardic although his heart rate is improving. Patient was placed on supplemental oxygen seems to be following orders. The patient is not in any acute distress at this time. We will continue to monitor closely and if the patient develops any respiratory distress we will emergently reintubate and placed on mechanical ventilation. I will continue to monitor as needed
[2020-11-17] MEDS: METOCLOPRAMIDE HCL INJ 10 MG/2 ML VIAL 5 MG IV PUSH ×5 (00:45→23:27)
--- NOTE | 2020-11-17 00:49 | PC.NURSE ---
at 2340 pt found in bed with head curled down to chest hold ET tube in hand. Tube feeding stopped and OG removed, RT and Dr. Platt paged. Set up for re-intubation. Pt encouraged to calm down and breath slowly. Placed on non-rebreather mask, Sats 92-95%. At 0015 Laura Cordero, RT stated that pt did not tolerate nasal cannula and placed back on non-rebreather mask. Sats 95-97% Precedex remains on at 0.7 mcg/kg/hr. Dr. Platt at bedside and aware of changes.
[2020-11-17 01:50] LABS: Alveolar/Arterial O2 Gradient 499.7 mmHg; Base Excess ABG 8.6 mEq/l (+/-2.0); Fractional Inspired Oxygen 100 %; HCO3 ABG 34.2 mEq/l (22.0-26.0); Oxygen Content ABG 12.1 %vol (16.0-22.0); Oxyhemoglobin 97.4 % THb (90.0-100.0); PCO2 ABG 53.8 mmHg (35.0-45.0); PO2 ABG 159.5 mmHg (80.0-100.0); Total Hemoglobin 8.6 g/dL (12.0-18.0); pH ABG 7.421 (7.350-7.450)
[2020-11-17 01:51] LABS: Device NASAL CANNULA; Modified Allen's Test Pass; Site Drawn RIGHT RADIAL
[2020-11-17 04:24] LABS: Hematocrit 27.3 % (42.0-52.0); Hemoglobin 8.3 g/dL (14.0-18.0); Mean Corpuscular HGB Conc 30.4 g/dl (32-36); Mean Corpuscular Hemoglobin 25.3 pg (26-34); Mean Corpuscular Volume 83.2 fl (80-100); Mean Platelet Volume 10.9 fl (7.4-10.4); Platelet Count Result 282 k/mm3 (150-375); Red Blood Count 3.28 M/mm3 (4.6-6.20); Red Cell Distribution Width 19.6 % (11.5-14.5)
[2020-11-17] MEDS: dexmedeTOMIDine 400 MCG/100 ML 400 MCG/100 ML BAG 24.95 MCG IV CONT ×5 (04:25→20:32)
[2020-11-17 04:39] LABS: Anion Gap 4 mmol/L (8-16); Blood Urea Nitrogen 14 mg/dL (9-20); Calcium 8.7 mg/dL (8.4-10.2); Carbon Dioxide 34 mmol/L (22-30); Chloride 100 mmol/L (98-107); Estimated CRCL calculation 102 ml/min; Estimated Glomerular Filt Rate > 60; Glucose 125 mg/dL (75-110); Magnesium 1.9 mg/dL (1.6-2.3); Phosphorus 3.8 mg/dL (2.5-4.5); Potassium 4.2 mmol/L (3.4-5.0); Sodium 138 mmol/L (137-145)
[2020-11-17] MEDS: THIAMINE HCL 200 MG/2 ML VIAL 100 MG IV PUSH (07:56)
[2020-11-17] MEDS: HEPARIN SODIUM 5,000 UNITS/ML VIAL 5000 UNITS SUB-Q ×2 (08:03→20:36)
[2020-11-17] MEDS: PANTOPRAZOLE SODIUM IV 40 MG VIAL IV PUSH (08:03)
[2020-11-17] MEDS: FOLIC ACID 1 MG/0.2 ML INJ IV PUSH (08:08)
[2020-11-17] MEDS: FUROSEMIDE INJ 40 MG/4 ML VIAL IV PUSH (08:09)
[2020-11-17] MEDS: BUDESONIDE RESPULE NEB 0.5 MG/2 ML AMP INHALATION ×2 (08:35→19:23)
--- NOTE | 2020-11-17 09:39 | WPDINTPN ---
Progress Note: A&P Assessment and Plan (1) Anemia: Qualifiers: Anemia type: unspecified type Qualified Code(s): D64.9 - Anemia, unspecified Code(s): D64.9 - Anemia, unspecified Status: Acute Assessment and Plan: Could be multifactorial, dilution as patient is positive 13.5 L in fluid balance, patient with alcohol use, bone marrow suppression, medications, hemolysis -will LDH, folic acid and B12 within normal limits -iron panel shows possible anemia of chronic disease iron panel, -stool for occult blood was negative -hemoglobin improved this morning, continue to monitor -transfuse if hemoglobin less than 7.0 (2) Acute respiratory failure with hypoxemia: Code(s): J96.01 - Acute respiratory failure with hypoxia Status: Acute Assessment and Plan: Acute respiratory failure, patient intubated on 11/12/2020 -11/16 chest x-ray shows stable diffuse lung disease consistent with pneumonia versus pulmonary edema -ABGs reviewed, patient currently on 40% FiO2 and 8 of PEEP. -SARS-CoV-2 PCR reported as negative. Precautions have been discontinued. -continue bronchodilators -patient self-extubated overnight 11/16/2020, was kept extubated on high-flow nasal cannula adequate O2 sats. -will diurese again today -lower extremity venous Dopplers on 11/14/2020: Negative for DVT bilaterally (3) Septic shock: Code(s): A41.9 - Sepsis, unspecified organism; R65.21 - Severe sepsis with septic shock Status: Acute Assessment and Plan: Patient with septic shock, likely secondary to pneumonia. -Levophed has been weaned off on 11/13 night. -sputum cultures growing group B strep, continue Zosyn -blood cultures negative x2, will discontinue vancomycin -continue hemodynamics and urine output -echocardiogram 11/15/2020 showed EF of 65-70%, LV diastolic dysfunction is normal, no valvular disease. 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, unspecified; R56.9 - Unspecified convulsions Status: Chronic Assessment and Plan: Patient presented with withdrawal seizures, lactic acid elevation could be related to seizures and/or septic shock -CT scan of the brain on 11/12/2020: Did not show any acute intracranial abnormality -patient will be started on Precedex infusion (5) Alcohol withdrawal: Qualifiers: Complication of substance-induced condition: with perceptual disturbance Qualified Code(s): F10.232 - Alcohol dependence with withdrawal with perceptual disturbance Code(s): F10.239 - Alcohol dependence with withdrawal, unspecified Status: Acute Assessment and Plan: Patient stopped drinking about 4 days prior to admission, presented with possible withdrawal seizure -currently on Versed and fentanyl infusion. May need to be transitioned to Precedex drip when he is ready to be extubated. -will continue to monitor -continue thiamine and folate (6) Suspected 2019-nCoV infection: Code(s): Z20.822 - Contact with and (suspected) exposure to COVID-19 Status: Acute Assessment and Plan: Diffuse bilateral infiltrates on chest x-ray along with fevers, altered mental status on arrival -SARS-CoV-2 PCR came back as negative. Precautions have been discontinued. Additional Plan Discussed with daughter and updated her with patient's condition and plan of care. I answered all questions Code status: Full code DVT prophylaxis with subcu heparin GI prophylaxis with IV pantoprazole Continue tube feeds, continue Reglan Critical care time spent: 32 minutes This dictation may have been done utilizing a voice recognition system. Attempts have been made to correct errors. However, there may be uncorrected grammatical, spelling, and recognition errors present. Due to a high probability of clinically significant, life threatening deterioration, the patient required
--- NOTE | 2020-11-17 10:37 | PM.IMPN ---
Progress Note: A&P Assessment and Plan (1) Aspiration pneumonia: Qualifiers: Aspiration pneumonia type: unspecified Laterality: unspecified laterality Lung location: unspecified part of lung Qualified Code(s): J69.0 - Pneumonitis due to inhalation of food and vomit Code(s): J69.0 - Pneumonitis due to inhalation of food and vomit Status: Acute Assessment and Plan: X-ray on admission was clear but soon after was developing bilateral opacities. Concern for aspiration pneumonia. COVID negative 11/12/20. Currently on Zosyn IV. Vancomycin IV has been stopped. Sputum cx positive for Group B strep. Blood cultures remain negative. Continue Zosyn (2) Acute respiratory failure with hypoxemia: Code(s): J96.01 - Acute respiratory failure with hypoxia Status: Acute Assessment and Plan: Patient self extubated overnight. Currently on HFNC. Continue Xopenex and Pulmicort. Continue IV antibiotics. Chest x-ray reviewed today showing persistent diffuse airspace disease. Monitor urine output. Appreciate sas architect input. (3) Acute encephalopathy: Code(s): G93.40 - Encephalopathy, unspecified Status: Acute Assessment and Plan: CT of the brain showing no acute findings on admission. Likely secondary to ETOH withdrawal and aspiraton pneumonia with possible withdrawal seizure. Reassess once he is more awake. (4) Septic shock: Code(s): A41.9 - Sepsis, unspecified organism; R65.21 - Severe sepsis with septic shock Status: Acute Assessment and Plan: Source of sepsis appears to be aspiration pneumonia. Patient able to be weaned off of Levophed on November 14. Blood pressure remains stable. Continue to monitor. (5) Alcohol withdrawal: Qualifiers: Complication of substance-induced condition: with perceptual disturbance Qualified Code(s): F10.232 - Alcohol dependence with withdrawal with perceptual disturbance Code(s): F10.239 - Alcohol dependence with withdrawal, unspecified Status: Acute Assessment and Plan: Patient is somnolent. Continue thiamine and folate. (6) Acute hypokalemia: Code(s): E87.6 - Hypokalemia Status: Acute Assessment and Plan: KCL replaced. Potassium normal today. Continue to follow. (7) DVT prophylaxis: Code(s): Z29.9 - Encounter for prophylactic measures, unspecified Status: Acute Assessment and Plan: Heparin Subjective Date/time seen: 11/17/20 10:37 Interval history: 55yo male with known history of alcoholism who presented to the hospital with acute altered mental status. COVID negative. Intubated with central line placed on 11/12. Patient self-extubated 11/16 Patient self-extubated overnight. He was monitored and did well. Currently requiring high-flow nasal cannula. He is alert with soft speech and appears confused. He does follow commands. Review of Systems Review of Systems: ROS unobtainable: Yes unobtainable due to mental status Exam Narrative: Exam Narrative: AF 97.1 145/99 94 22 98% HFNC Gen - NARD Chest - mild diffuse coarse BS, nml RR CV - RRR S1/S2. Telemetry showing no significant dysrhythmias but occasional sinus tachycardia. Abd - Soft, NT/ND, Positive BS -Gonzales secured draining pale yellow urine. Ext - No pedal edema. Neuro - awake, paucity of speech with very soft spech. follows commands. no asterixis sign. no focal weakness Skin - Warm and dry Objective Data Vital Signs Vital Signs: Vital Signs - 24 hr 11/16/20 10:40 11/16/20 12:00 11/16/20 13:37 Temperature Pulse Rate 90 90 86 Respiratory Rate 14 13 Blood Pressure 89/63 L Pulse Oximetry 93 90 11/16/20 14:00 11/16/20 14:30 11/16/20 14:32 Temperature 99.0 F Pulse Rate 105 H 105 H 102 H Respiratory Rate 13 13 13 Blood Pressure 134/87 Pulse Oximetry 90 11/16/20 14:46 11/16/20 14:55 11/16/20 16:00 Temperatu
--- NOTE | 2020-11-17 10:54 | PCDIET ---
ICU Rounding Note: Patient previously tolerating tube feedings, but self-extubated overnight and is currently NPO. Recommend swallow evaluation, once appropriate. Patient may also benefit from medication to promote BM. Last recorded weight is 99.3kg which is stable with last review. Bowel Motility: Last documented BM on 11/12/20. +Bowel sounds. Labs Reviewed: Hgb (8.3), Hct (27.3), Glu (125) Meds Noted: Pulmicort, Xopenex, Zosyn, Precedex, Reglan, Versed, Thiamine, Folic Acid Injection, Protonix, Lasix Additional Notes: No pressure sores. Following daily in ICU rounds. Assessing/reassessing every 3 days.
[2020-11-17] MEDS: hydrALAZINE HCL 20 MG/ML VIAL 10 MG IV PUSH (19:51)
[2020-11-17] MEDS: MIDAZOLAM HCL (*CRX) 2 MG/2 ML VIAL IV PUSH ×2 (21:22→23:27)
[2020-11-18] VITALS (37 sets, daily range): BP systolic 108–155; BP diastolic 71–97; PULSE 74–129; RESP 12–30; TEMP 36.4–37.1; O2SAT 3–99
[2020-11-18] MEDS: dexmedeTOMIDine 400 MCG/100 ML 400 MCG/100 ML BAG 24.95 MCG IV CONT ×2 (01:05→05:29)
[2020-11-18] MEDS: MIDAZOLAM HCL (*CRX) 2 MG/2 ML VIAL IV PUSH (03:26)
[2020-11-18 04:56] LABS: Alveolar/Arterial O2 Gradient 160.8 mmHg; Base Excess ABG 4.4 mEq/l (+/-2.0); Carboxyhemoglobin 0.3 % THb (0-2.0); Device HIGH FLOW THERAPY; Fractional Inspired Oxygen 48 %; HCO3 ABG 28.9 mEq/l (22.0-26.0); Methemoglobin ABG 0.4 %THb (0-1.5); Modified Allen's Test Pass; Oxygen Content ABG 14.5 %vol (16.0-22.0); Oxygen Saturation ABG 98.7 % (95.0-100.0); Oxyhemoglobin 97.4 % THb (90.0-100.0); PCO2 ABG 43.3 mmHg (35.0-45.0); PO2 ABG 132.5 mmHg (80.0-100.0); PO2 FiO2 Ratio Arterial Blood 2.76 %; Reduced Hemoglobin 1.9 %THb (0-5.0); Site Drawn LEFT RADIAL; Total Hemoglobin 10.4 g/dL (12.0-18.0); pH ABG 7.443 (7.350-7.450)
[2020-11-18 05:00] LABS: Hematocrit 26.7 % (42.0-52.0); Mean Corpuscular Hemoglobin 24.5 pg (26-34); Mean Corpuscular Volume 81.7 fl (80-100); Mean Platelet Volume 11.2 fl (7.4-10.4); Platelet Count Result 323 k/mm3 (150-375); Red Blood Count 3.27 M/mm3 (4.6-6.20); Red Cell Distribution Width 19.4 % (11.5-14.5); White Blood Count 8.1 K/mm3 (4.5-10.0)
--- NOTE | 2020-11-18 05:15 | PC.NURSE ---
Patient again attempted to climb over siderail. When asked to stay in bed, patient points to the window stating my room is through there. Bed exit alarm remains armed.
[2020-11-18 05:26] LABS: Anion Gap 3 mmol/L (8-16); Blood Urea Nitrogen 13 mg/dL (9-20); Calcium 8.9 mg/dL (8.4-10.2); Carbon Dioxide 33 mmol/L (22-30); Chloride 97 mmol/L (98-107); Estimated CRCL calculation 101 ml/min; Estimated Glomerular Filt Rate > 60; Glucose 112 mg/dL (75-110); Magnesium 1.8 mg/dL (1.6-2.3); Phosphorus 3.5 mg/dL (2.5-4.5); Potassium 3.6 mmol/L (3.4-5.0); Sodium 133 mmol/L (137-145)
[2020-11-18] MEDS: METOCLOPRAMIDE HCL INJ 10 MG/2 ML VIAL 5 MG IV PUSH ×3 (05:31→17:37)
[2020-11-18 07:57] LABS: Eosinophils Absolute Manual 0.08 K/mm3 (0.02-0.5); Eosinophils Percent Manual 1 % (0-4); Monocytes Absolute Manual 0.64 K/mm3 (0.1-0.90); Monocytes Percent Manual 8 % (3-9); Neutrophils Percent Manual 70 % (46-73); Ovalocytes 2+ (NORMAL); Platelet Estimate Adequate (Adequate); Total Cells Counted 100
[2020-11-18 07:58] LABS: Hypochromasia 2+ (NORMAL)
[2020-11-18] MEDS: BUDESONIDE RESPULE NEB 0.5 MG/2 ML AMP INHALATION ×2 (08:54→19:44)
[2020-11-18] MEDS: FUROSEMIDE INJ 40 MG/4 ML VIAL IV PUSH (09:18)
[2020-11-18] MEDS: PANTOPRAZOLE SODIUM IV 40 MG VIAL IV PUSH (09:18)
[2020-11-18] MEDS: HEPARIN SODIUM 5,000 UNITS/ML VIAL 5000 UNITS SUB-Q ×2 (09:18→20:16)
[2020-11-18] MEDS: THIAMINE HCL 200 MG/2 ML VIAL 100 MG IV PUSH (09:19)
[2020-11-18] MEDS: FOLIC ACID 1 MG/0.2 ML INJ IV PUSH (09:19)
--- NOTE | 2020-11-18 10:57 | PCDIET ---
ICU Rounding Note: Patient NPO with plan for swallow evaluation today. Last recorded weight is 91kg which is decreased from last review. -I/O. Bowel Motility: Last documented BM on 11/12/20. Labs Reviewed: Hgb (8.0), Hct (26.7), Glu (112), Na (133) Meds Noted: Pulmicort, Precedex, Xopenex, Folic Acid, Heparin, Reglan, Hydralazine, Protonix, Zosyn, Thiamine Additional Notes: No skin issues reported. Following daily in ICU rounds. Assessing/reassessing every 3 days.
[2020-11-18] MEDS: dexmedeTOMIDine 400 MCG/100 ML 400 MCG/100 ML BAG 14.97 MCG IV CONT (11:33)
--- NOTE | 2020-11-18 12:20 | WPDINTPN ---
Progress Note: A&P Assessment and Plan (1) Anemia: Qualifiers: Anemia type: unspecified type Qualified Code(s): D64.9 - Anemia, unspecified Code(s): D64.9 - Anemia, unspecified Status: Acute Assessment and Plan: Could be multifactorial, dilution as patient is positive 13.5 L in fluid balance, patient with alcohol use, bone marrow suppression, medications, hemolysis - LDH, folic acid and B12 within normal limits -iron panel shows possible anemia of chronic disease -stool for occult blood was negative -hemoglobin improved this morning, continue to monitor -transfuse if hemoglobin less than 7.0 (2) Acute respiratory failure with hypoxemia: Code(s): J96.01 - Acute respiratory failure with hypoxia Status: Acute Assessment and Plan: Acute respiratory failure, patient intubated on 11/12/2020 -self-extubated on the night of 11/16/2020 -chest x-ray and ABGs reviewed, currently on high-flow therapy, 60 L flow rate and 45% FiO2 -SARS-CoV-2 PCR reported as negative. Precautions have been discontinued. -continue bronchodilators -patient diuresed well -continue diuresis -speech for swallow eval -PT/OT to evaluate, up in chair -lower extremity venous Dopplers on 11/14/2020: Negative for DVT bilaterally (3) Septic shock: Code(s): A41.9 - Sepsis, unspecified organism; R65.21 - Severe sepsis with septic shock Status: Acute Assessment and Plan: Patient with septic shock, likely secondary to pneumonia. -Levophed has been weaned off on 11/13 night. -sputum cultures growing group B strep, continue Zosyn -blood cultures negative x2, will discontinue vancomycin -continue hemodynamics and urine output -echocardiogram 11/15/2020 showed EF of 65-70%, LV diastolic dysfunction is normal, no valvular disease. 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, unspecified; R56.9 - Unspecified convulsions Status: Chronic Assessment and Plan: Patient presented with withdrawal seizures, lactic acid elevation could be related to seizures and/or septic shock -CT scan of the brain on 11/12/2020: Did not show any acute intracranial abnormality -continue to wean Precedex infusion (5) Alcohol withdrawal: Qualifiers: Complication of substance-induced condition: with perceptual disturbance Qualified Code(s): F10.232 - Alcohol dependence with withdrawal with perceptual disturbance Code(s): F10.239 - Alcohol dependence with withdrawal, unspecified Status: Acute Assessment and Plan: Patient stopped drinking about 4 days prior to admission, presented with possible withdrawal seizure -currently on Versed and fentanyl infusion. May need to be transitioned to Precedex drip when he is ready to be extubated. -will continue to monitor -continue thiamine and folate (6) Suspected 2019-nCoV infection: Code(s): Z20.822 - Contact with and (suspected) exposure to COVID-19 Status: Acute Assessment and Plan: Diffuse bilateral infiltrates on chest x-ray along with fevers, altered mental status on arrival -SARS-CoV-2 PCR came back as negative. Precautions have been discontinued. Additional Plan Discussed with daughter and updated her with patient's condition and plan of care. I answered all questions Code status: Full code DVT prophylaxis with subcu heparin GI prophylaxis with IV pantoprazole Continue tube feeds, continue Reglan Critical care time spent: 32 minutes This dictation may have been done utilizing a voice recognition system. Attempts have been made to correct errors. However, there may be uncorrected grammatical, spelling, and recognition errors present. Due to a high probability of clinically significant, life threatening deterioration, the patient required my highest level of preparedness to intervene emergently and I personally spent this crit
--- NOTE | 2020-11-18 14:26 | PM.IMPN ---
Progress Note: A&P Assessment and Plan (1) Aspiration pneumonia: Qualifiers: Aspiration pneumonia type: unspecified Laterality: unspecified laterality Lung location: unspecified part of lung Qualified Code(s): J69.0 - Pneumonitis due to inhalation of food and vomit Code(s): J69.0 - Pneumonitis due to inhalation of food and vomit Status: Acute Assessment and Plan: X-ray on admission was clear but soon after was developing bilateral opacities. Concern for aspiration pneumonia. COVID negative 11/12/20. Currently on Zosyn IV. Vancomycin IV has been stopped. Sputum cx positive for Group B strep. Blood cultures remain negative. Speech therapy has concern for dysphagia/aspiration so MBS ordered. Continue NPO status. Appreciate ST input. Continue Zosyn (2) Acute respiratory failure with hypoxemia: Code(s): J96.01 - Acute respiratory failure with hypoxia Status: Acute Assessment and Plan: Patient self extubated 11/16 Currently on HFNC. Continue Xopenex and Pulmicort. Continue IV antibiotics. Chest x-ray reviewed today showing no change. Continues to have excellent urine output with Lasix. Appreciate shot peen operator input. (3) Acute encephalopathy: Code(s): G93.40 - Encephalopathy, unspecified Status: Acute Assessment and Plan: CT of the brain showing no acute findings on admission. Likely secondary to ETOH withdrawal and aspiraton pneumonia with possible withdrawal seizure. This appears to be resolving (4) Septic shock: Code(s): A41.9 - Sepsis, unspecified organism; R65.21 - Severe sepsis with septic shock Status: Acute Assessment and Plan: Source of sepsis appears to be aspiration pneumonia. Patient able to be weaned off of Levophed on November 14. Blood pressure remains stable. Continue to monitor. (5) Alcohol withdrawal: Qualifiers: Complication of substance-induced condition: with perceptual disturbance Qualified Code(s): F10.232 - Alcohol dependence with withdrawal with perceptual disturbance Code(s): F10.239 - Alcohol dependence with withdrawal, unspecified Status: Acute Assessment and Plan: Patient is more awake and alert Continue thiamine and folate. Weaning off Precedex. (6) Acute hypokalemia: Code(s): E87.6 - Hypokalemia Status: Acute Assessment and Plan: KCL replaced. Potassium normal today. Continue to follow. (7) DVT prophylaxis: Code(s): Z29.9 - Encounter for prophylactic measures, unspecified Status: Acute Assessment and Plan: Heparin Subjective Date/time seen: 11/18/20 14:26 Interval history: 55yo male with known history of alcoholism who presented to the hospital with acute altered mental status. COVID negative. Intubated with central line placed on 11/12. Patient self-extubated 11/16 Patient feels better today. Precedex down to 0.6. Patient with headache today. Denies CP. Not eating yet due to issues with swallowing. ST did a bedside evaluation and felt the patient needed a MBS. Exam Narrative: Exam Narrative: AF 98.5 155/96 83 22 96% HFNC Gen - NARD Chest - bibasilar rhonchi CV - RRR S1/S2 Abd - Soft, NT/ND, Positive BS -Gonzales secured draining clear yellow urine. Ext - No pedal edema. Neuro - more awake and appropriate. HEAD Skin - Warm and dry Objective Data Vital Signs Vital Signs: Vital Signs - 24 hr 11/17/20 16:00 11/17/20 16:09 11/17/20 18:00 Temperature 98.8 F Pulse Rate 82 80 84 Respiratory Rate 25 H 24 H 21 H Blood Pressure 156/93 H 141/90 H Pulse Oximetry 94 95 11/17/20 19:23 11/17/20 19:34 11/17/20 20:00 Temperature 98.5 F Pulse Rate 84 77 87 Respiratory Rate 22 H 19 23 H Blood Pressure 120/70 Pulse Oximetry 95 93 11/17/20 20:10 11/17/20 22:00 11/18/20 00:00 Temperature 98.1 F Pulse Rate 99 85 79 Respiratory Rate 19 25 H 29 H Blood Pressure 125/
[2020-11-18 16:11] LABS: IFOB Positive Control Positive; Immunochemical Fecal Occult Bl Negative (N)
--- NOTE | 2020-11-18 16:16 | PCSTNOTE ---
Please refer to the Bedside Swallow Evaluation in the EMR. Please note, silent aspiration cannot be ruled out at bedside. MBS recommended due to coughing during trial intake. Pt to remain NPO until completed.
[2020-11-18] MEDS: dexmedeTOMIDine 400 MCG/100 ML 400 MCG/100 ML BAG 9.98 MCG IV CONT (20:17)
[2020-11-19] VITALS (28 sets, daily range): BP systolic 137–160; BP diastolic 82–106; PULSE 21–135; RESP 12–33; TEMP 36.1–38.6; O2SAT 92–100
[2020-11-19] MEDS: SODIUM CHLORIDE 0.9% IV 500 ML IV CONT (00:05)
[2020-11-19] MEDS: SODIUM CHLORIDE 0.9% IV 1,000 ML 500 ML IV CONT (03:25)
[2020-11-19 04:51] LABS: Hematocrit 28.3 % (42.0-52.0); Hemoglobin 8.8 g/dL (14.0-18.0); Mean Corpuscular HGB Conc 31.1 g/dl (32-36); Mean Corpuscular Hemoglobin 24.8 pg (26-34); Mean Corpuscular Volume 79.7 fl (80-100); Mean Platelet Volume 10.8 fl (7.4-10.4); Platelet Count Result 437 k/mm3 (150-375); Red Blood Count 3.55 M/mm3 (4.6-6.20); Red Cell Distribution Width 19.5 % (11.5-14.5); White Blood Count 26.8 K/mm3 (4.5-10.0)
[2020-11-19 05:06] LABS: Anion Gap 8 mmol/L (8-16); Blood Urea Nitrogen 15 mg/dL (9-20); Calcium 8.9 mg/dL (8.4-10.2); Carbon Dioxide 28 mmol/L (22-30); Chloride 96 mmol/L (98-107); Estimated CRCL calculation 87 ml/min; Estimated Glomerular Filt Rate > 60; Glucose 109 mg/dL (75-110); Magnesium 1.6 mg/dL (1.6-2.3); Phosphorus 2.4 mg/dL (2.5-4.5); Potassium 2.9 mmol/L (3.4-5.0); Sodium 132 mmol/L (137-145)
[2020-11-19] MEDS: dexmedeTOMIDine 400 MCG/100 ML 400 MCG/100 ML BAG 9.98 MCG IV CONT (06:41)
[2020-11-19] MEDS: BUDESONIDE RESPULE NEB 0.5 MG/2 ML AMP INHALATION ×2 (07:47→20:03)
[2020-11-19] MEDS: PANTOPRAZOLE SODIUM IV 40 MG VIAL IV PUSH (08:24)
[2020-11-19] MEDS: THIAMINE HCL 200 MG/2 ML VIAL 100 MG IV PUSH (08:24)
[2020-11-19] MEDS: FOLIC ACID 1 MG/0.2 ML INJ IV PUSH (08:25)
[2020-11-19] MEDS: HEPARIN SODIUM 5,000 UNITS/ML VIAL 5000 UNITS SUB-Q ×2 (08:25→20:00)
--- NOTE | 2020-11-19 09:41 | WPDINTPN ---
Progress Note: A&P Assessment and Plan (1) Pancolitis: Code(s): K51.00 - Ulcerative (chronic) pancolitis without complications Status: Acute Assessment and Plan: Overnight patient had 13-14 bouts of diarrhea, liquid stools -CT scan of the abdomen and pelvis on 11/19 so pineda colitis which could be infectious, inflammatory or ischemic in etiology, cholelithiasis, moderate sites sliding type hiatal hernia, diffuse hepatic steatosis, diffuse pneumonia throughout both lungs with small bilateral pleural effusion -patient started on Flagyl -stool for C diff -stool cultures -stool for ova and parasite -infectious disease has been consulted (2) Anemia: Qualifiers: Anemia type: unspecified type Qualified Code(s): D64.9 - Anemia, unspecified Code(s): D64.9 - Anemia, unspecified Status: Acute Assessment and Plan: Could be multifactorial, dilution as patient is positive 13.5 L in fluid balance, patient with alcohol use, bone marrow suppression, medications, hemolysis - LDH, folic acid and B12 within normal limits -iron panel shows possible anemia of chronic disease -stool for occult blood was negative -hemoglobin stable and improved -transfuse if hemoglobin less than 7.0 (3) Acute respiratory failure with hypoxemia: Code(s): J96.01 - Acute respiratory failure with hypoxia Status: Acute Assessment and Plan: Acute respiratory failure, patient intubated on 11/12/2020 -self-extubated on the night of 11/16/2020 -chest x-ray and ABGs reviewed, currently on high-flow therapy, 60 L flow rate and 45% FiO2 -SARS-CoV-2 PCR reported as negative. Precautions have been discontinued. -continue bronchodilators -diuresed well, was tachycardic overnight, was given IV fluids. -patient to have a modified swallow test -PT/OT to evaluate, up in chair -lower extremity venous Dopplers on 11/14/2020: Negative for DVT bilaterally (4) Septic shock: Code(s): A41.9 - Sepsis, unspecified organism; R65.21 - Severe sepsis with septic shock Status: Acute Assessment and Plan: Patient with septic shock, likely secondary to pneumonia. -Levophed has been weaned off on 11/13 night. -sputum cultures growing group B strep, status post Zosyn x7 days -blood cultures negative x2, will discontinue vancomycin -continue hemodynamics and urine output -echocardiogram 11/15/2020 showed EF of 65-70%, LV diastolic dysfunction is normal, no valvular disease. 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, unspecified; R56.9 - Unspecified convulsions Status: Chronic Assessment and Plan: Patient presented with withdrawal seizures, lactic acid elevation could be related to seizures and/or septic shock -CT scan of the brain on 11/12/2020: Did not show any acute intracranial abnormality -continue to wean Precedex infusion (6) Alcohol withdrawal: Qualifiers: Complication of substance-induced condition: with perceptual disturbance Qualified Code(s): F10.232 - Alcohol dependence with withdrawal with perceptual disturbance Code(s): F10.239 - Alcohol dependence with withdrawal, unspecified Status: Acute Assessment and Plan: Patient stopped drinking about 4 days prior to admission, presented with possible withdrawal seizure -currently on Versed and fentanyl infusion. May need to be transitioned to Precedex drip when he is ready to be extubated. -will continue to monitor -continue thiamine and folate (7) Suspected 2019-nCoV infection: Code(s): Z20.822 - Contact with and (suspected) exposure to COVID-19 Status: Acute Assessment and Plan: Diffuse bilateral infiltrates on chest x-ray along with fevers, altered mental status on arrival -SARS-CoV-2 PCR came back as negative. Precautions have been discontinued. Additional Plan Discussed with daughter and significan
[2020-11-19] MEDS: metroNIDAZOLE 500 MG/ISO 100ML 500 MG/100 ML BAG 100 MG IVPB (10:47)
--- NOTE | 2020-11-19 10:59 | PCDIET ---
Nutrition Follow-Up Complete: Nutrition Diagnosis: Inadequate oral intake related to mechanical vent as evidenced by tube feedings. Nutrition Goal: Meet estimated nutritional needs. Goal not met. Patient NPO for MBS, per [employer] recommendation. Patient also with significant diarrhea overnight and CT abdomen showing pancolitis. If diet is expected to remain NPO for greater than 2-3 more days, would begin to consider parenteral nutrition. Last recorded weight is 89.9 kg which is decreased from last review. -I/O. Bowel Motility: Significant diarrhea reported. Labs Reviewed: WBC (26.8), Hgb (8.8), Hct (28.3), K (2.9), Na (132), PO4 (2.4) Meds Noted: Pulmicort, Folic Acid, Heparin, Xopenex, Flagyl, Protonix, Thiamine, D5W/40mEq KCl at 125mL/hr, Additional Notes: Band-Aid to right elbow. No pressure sores documented. Will continue to monitor with same goal. Nutrition Monitoring and Evaluation: Follow up in 3 days.
--- NOTE | 2020-11-19 12:27 | PCSTNOTE ---
Please refer to the Modified Barium Swallow Evaluation in the EMR.
[2020-11-19] MEDS: METOPROLOL TARTRATE INJ 5 MG/5 ML VIAL IV PUSH (12:46)
--- NOTE | 2020-11-19 13:56 | WPDINFPN2 ---
Progress Note: A&P Assessment and Plan (1) Pancolitis: Code(s): K51.00 - Ulcerative (chronic) pancolitis without complications Status: Acute Assessment and Plan: Leukocytosis and diarrhea, very likely C diff infection REC He is now able to take oral, so switch to vanc x 10 days. F/U WBC over time. Call if other Qs Subjective Date/time seen: 11/19/20 13:56 Objective Data Vital Signs Vital Signs: Vital Signs - 24 hr 11/18/20 14:00 11/18/20 14:12 11/18/20 14:20 Temperature Pulse Rate 83 83 Respiratory Rate 22 H 22 H Blood Pressure 155/96 H Pulse Oximetry 94 96 11/18/20 14:50 11/18/20 14:51 11/18/20 15:03 Temperature Pulse Rate 116 H 126 H Respiratory Rate 20 20 Blood Pressure Pulse Oximetry 98 11/18/20 16:00 11/18/20 16:08 11/18/20 16:10 Temperature 36.8 C Pulse Rate 111 H Respiratory Rate 18 Blood Pressure 108/71 Pulse Oximetry 97 97 97 11/18/20 16:30 11/18/20 17:30 11/18/20 17:35 Temperature Pulse Rate Respiratory Rate Blood Pressure Pulse Oximetry 96 97 97 11/18/20 18:00 11/18/20 19:44 11/18/20 19:46 Temperature Pulse Rate 90 103 H Respiratory Rate 19 24 H Blood Pressure 111/81 Pulse Oximetry 98 3 L 11/18/20 20:00 11/18/20 20:01 11/18/20 20:17 Temperature 36.5 C Pulse Rate 106 H 106 H 100 Respiratory Rate 22 H 18 20 Blood Pressure 135/91 H Pulse Oximetry 99 11/18/20 22:00 11/19/20 00:00 11/19/20 00:20 Temperature 37.0 C Pulse Rate 115 H 117 H 117 H Respiratory Rate 12 23 H 23 H Blood Pressure 132/78 150/88 H Pulse Oximetry 96 95 11/19/20 02:00 11/19/20 02:14 11/19/20 02:19 Temperature 38.3 C H 38.6 C H Pulse Rate 132 H 126 H Respiratory Rate 21 H 16 Blood Pressure 144/90 H Pulse Oximetry 94 11/19/20 02:27 11/19/20 03:59 11/19/20 04:00 Temperature 38.4 C H 38.3 C H Pulse Rate 21 L 114 H Respiratory Rate 33 H Blood Pressure 151/88 H Pulse Oximetry 93 11/19/20 06:00 11/19/20 06:41 11/19/20 07:30 Temperature 38.4 C H Pulse Rate 117 H 104 H 120 H Respiratory Rate 25 H 23 H 24 H Blood Pressure 145/89 H Pulse Oximetry 97 11/19/20 07:45 11/19/20 07:47 11/19/20 07:57 Temperature Pulse Rate 123 H 103 H 104 H Respiratory Rate 22 H 18 18 Blood Pressure Pulse Oximetry 95 11/19/20 08:00 11/19/20 08:01 11/19/20 10:00 Temperature 36.7 C Pulse Rate 121 H 123 H 113 H Respiratory Rate 27 H 20 28 H Blood Pressure 137/97 H 148/100 H Pulse Oximetry 96 92 11/19/20 12:46 11/19/20 13:49 Temperature Pulse Rate 123 H 102 H Respiratory Rate 18 Blood Pressure Pulse Oximetry Intake/Output Intake/Output: Intake & Output 11/16/20 11/17/20 11/18/20 11/19/20 23:59 23:59 23:59 23:59 Intake Total 1010.4 1145 700 350 Output Total 2750 3950 3950 1450 Balance -1739.6 -2805 -3250 -1100 Meds/Results Medications: Active Medications Generic Name Dose Route Start Last Admin Trade Name Freq PRN Reason Stop Dose Admin Budesonide 0.5 mg 11/12/20 09:45 11/19/20 07:47 Budesonide Respule Neb 0.5 Mg/2 Ml Amp INHALATION 0.5 mg Q12HRT YASH Administration Folic Acid 1 mg 11/12/20 09:50 11/19/20 08:25 Folic Acid 1 Mg/0.2 Ml Inj IV PUSH 1 mg QAM YASH Administration Heparin Sodium (Porcine) 5,000 units 11/12/20 21:00 11/19/20 08:25 Heparin Sodium 5,000 Units/Ml Vial SUB-Q 5,000 units Q12HR YASH Administration Hydralazine HCl 10 mg 11/17/20 17:57 11/17/20 19:51 Hydralazine Hcl 20 Mg/Ml Vial IV PUSH 10 mg Q4H PRN Administration SBP >150 Dexmedetomidine HCl 400 mcg in 100 mls @ 2.495 mls/hr 11/16/20 07:25 11/19/20 08:01 Precedex 400 Mcg/100 Ml IV CONT 0.1 mcg/kg/hr .Q40H5M YASH 2.5 mls/hr Titration Protocol 0.1 MCG/KG/HR Levalbuterol HCl 1.25 mg 11/12/20 09:42 11/19/20 13:49 Levalbuterol Neb 1.25 Mg/0.5 Ml INHALATION 1.25 mg Q6HRT YASH Administration Ondansetron HC
--- NOTE | 2020-11-19 14:04 | PCPTNOTE ---
The PT treatment was unable to be completed today due to patient refusal. Will continue per Plan of Care frequency and duration.
--- NOTE | 2020-11-19 14:14 | PCOTNOTE ---
Attempted therapy session with patient, but patient refused, stating he was really tired and didn't sleep well at all last night. Therapist encouraged patient to participate with therapy, but patient still refused all ADLs, exercises and transfers.
--- NOTE | 2020-11-19 16:01 | PM.IMPN ---
Progress Note: A&P Assessment and Plan (1) Pancolitis: Code(s): K51.00 - Ulcerative (chronic) pancolitis without complications Status: Acute Assessment and Plan: likely secondary to Clostridium C difficile patient tested positive for Clostridium C difficile leukocytosis will start p.o. vanc currently on Flagyl IV (2) Alcohol withdrawal: Qualifiers: Complication of substance-induced condition: with perceptual disturbance Qualified Code(s): F10.232 - Alcohol dependence with withdrawal with perceptual disturbance Code(s): F10.239 - Alcohol dependence with withdrawal, unspecified Status: Acute Assessment and Plan: was on Precedex now off of present resolved (3) Septic shock: Code(s): A41.9 - Sepsis, unspecified organism; R65.21 - Severe sepsis with septic shock Status: Acute Assessment and Plan: resolved (4) Acute encephalopathy: Code(s): G93.40 - Encephalopathy, unspecified Status: Acute Assessment and Plan: resolved (5) Acute respiratory failure with hypoxemia: Code(s): J96.01 - Acute respiratory failure with hypoxia Status: Acute Assessment and Plan: extubated on room air (6) Alcohol withdrawal seizure: Code(s): F10.239 - Alcohol dependence with withdrawal, unspecified; R56.9 - Unspecified convulsions Status: Acute Assessment and Plan: no new events supportive care continue to monitor (7) Acute hypokalemia: Code(s): E87.6 - Hypokalemia Status: Acute Assessment and Plan: replace as needed daily BMP (8) Aspiration pneumonia: Qualifiers: Aspiration pneumonia type: unspecified Laterality: unspecified laterality Lung location: unspecified part of lung Qualified Code(s): J69.0 - Pneumonitis due to inhalation of food and vomit Code(s): J69.0 - Pneumonitis due to inhalation of food and vomit Status: Acute Assessment and Plan: was on Zosyn clinically no signs of pneumonia (9) Peripheral neuropathy: Qualifiers: Peripheral neuropathy type: polyneuropathy, unspecified Qualified Code(s): G62.9 - Polyneuropathy, unspecified Code(s): G62.9 - Polyneuropathy, unspecified Status: Acute Assessment and Plan: stable (10) GERD (gastroesophageal reflux disease): Qualifiers: Esophagitis presence: without esophagitis Qualified Code(s): K21.9 - Gastro-esophageal reflux disease without esophagitis Code(s): K21.9 - Gastro-esophageal reflux disease without esophagitis Status: Chronic Assessment and Plan: stable (11) HTN (hypertension): Qualifiers: Hypertension type: essential hypertension Qualified Code(s): I10 - Essential (primary) hypertension Code(s): I10 - Essential (primary) hypertension Status: Chronic Assessment and Plan: continue to monitor (12) Esophageal varices: Qualifiers: Esophageal varices type: secondary Esophageal varices bleeding: without bleeding Qualified Code(s): I85.10 - Secondary esophageal varices without bleeding Code(s): I85.00 - Esophageal varices without bleeding Status: Chronic Assessment and Plan: stable (13) Thrombocytopenia: Code(s): D69.6 - Thrombocytopenia, unspecified Status: Acute Assessment and Plan: likely secondary to alcohol intake continue to monitor avoid heparin products (14) Hypomagnesemia: Code(s): E83.42 - Hypomagnesemia Status: Acute Assessment and Plan: replace as needed (15) Clostridioides difficile diarrhea: Code(s): A04.72 - Enterocolitis due to Clostridium difficile, not specified as recurrent Status: Acute Assessment and Plan: on Flagyl and p.o. vanc will continue to monitor Subjective Date/time seen: 11/19/20 16:01 the patient is states that has not been able to sleep has
[2020-11-19 16:18] LABS: Anion Gap 6 mmol/L (8-16); Blood Urea Nitrogen 10 mg/dL (9-20); Calcium 8.9 mg/dL (8.4-10.2); Carbon Dioxide 27 mmol/L (22-30); Chloride 101 mmol/L (98-107); Estimated CRCL calculation 109 ml/min; Estimated Glomerular Filt Rate > 60; Glucose 100 mg/dL (75-110); Potassium 2.9 mmol/L (3.4-5.0); Sodium 134 mmol/L (137-145)
[2020-11-19] MEDS: VANCOMYCIN ORAL 125 MG/2.5 ML SYRUP PO (18:42)
[2020-11-19] MEDS: MAGNESIUM SULF 2 GM/WATER 50ML 2 GM/50 ML BAG IVPB (18:43)
[2020-11-19] MEDS: hydrALAZINE HCL 20 MG/ML VIAL 10 MG IV PUSH (19:59)
[2020-11-19 20:50] LABS: Haptoglobin 240 mg/dL (43-212)
[2020-11-20] VITALS (24 sets, daily range): BP systolic 110–157; BP diastolic 63–103; PULSE 95–127; RESP 18–33; TEMP 36.5–37.5; O2SAT 94–100
[2020-11-20 01:50] LABS: Hematocrit 29.1 % (42.0-52.0); Hemoglobin 9.3 g/dL (14.0-18.0); Mean Corpuscular Hemoglobin 25.1 pg (26-34); Mean Corpuscular Volume 78.4 fl (80-100); Mean Platelet Volume 10.5 fl (7.4-10.4); Platelet Count Result 533 k/mm3 (150-375); Red Blood Count 3.71 M/mm3 (4.6-6.20); Red Cell Distribution Width 19.8 % (11.5-14.5); White Blood Count 30.7 K/mm3 (4.5-10.0)
[2020-11-20 01:59] LABS: Anion Gap 9 mmol/L (8-16); Blood Urea Nitrogen 9 mg/dL (9-20); Calcium 9.1 mg/dL (8.4-10.2); Carbon Dioxide 25 mmol/L (22-30); Chloride 100 mmol/L (98-107); Estimated CRCL calculation 109 ml/min; Estimated Glomerular Filt Rate > 60; Glucose 108 mg/dL (75-110); Magnesium 2.2 mg/dL (1.6-2.3); Sodium 134 mmol/L (137-145)
[2020-11-20] MEDS: VANCOMYCIN ORAL 125 MG/2.5 ML SYRUP PO ×4 (07:12→17:25)
[2020-11-20] MEDS: BUDESONIDE RESPULE NEB 0.5 MG/2 ML AMP INHALATION ×2 (08:26→20:19)
[2020-11-20] MEDS: hydrALAZINE HCL 20 MG/ML VIAL 10 MG IV PUSH ×2 (08:42)
[2020-11-20] MEDS: PANTOPRAZOLE SODIUM IV 40 MG VIAL IV PUSH (08:42)
[2020-11-20] MEDS: THIAMINE HCL 200 MG/2 ML VIAL 100 MG IV PUSH (08:42)
[2020-11-20] MEDS: HEPARIN SODIUM 5,000 UNITS/ML VIAL 5000 UNITS SUB-Q ×2 (08:42→21:00)
[2020-11-20] MEDS: FOLIC ACID 1 MG/0.2 ML INJ IV PUSH (08:46)
[2020-11-20] MEDS: SODIUM CHLORIDE 0.9% IV 250 ML 999 ML IV CONT (09:47)
[2020-11-20 10:16] LABS: Potassium 3.6 mmol/L (3.4-5.0)
--- NOTE | 2020-11-20 16:05 | PM.IMPN ---
Progress Note: A&P Assessment and Plan (1) Clostridioides difficile diarrhea: Code(s): A04.72 - Enterocolitis due to Clostridium difficile, not specified as recurrent Status: Acute Assessment and Plan: Patient with diarrhea. CT scan showing pancolitis. CDiff has returned positive. Currently on oral Vanco. Symptoms better today. Continue to follow. (2) Pancolitis: Code(s): K51.00 - Ulcerative (chronic) pancolitis without complications Status: Acute Assessment and Plan: Patient developed fever and underwent CT Ch/A/P 11/19. This showed diffuse PNA throughout both lungs with small bilateral pleural effusions, pancolitis and diffuse hepatic steatosis. As above. (3) Aspiration pneumonia: Qualifiers: Aspiration pneumonia type: unspecified Laterality: unspecified laterality Lung location: unspecified part of lung Qualified Code(s): J69.0 - Pneumonitis due to inhalation of food and vomit Code(s): J69.0 - Pneumonitis due to inhalation of food and vomit Status: Acute Assessment and Plan: X-ray on admission was clear but soon after was developing bilateral opacities. Concern for aspiration pneumonia. COVID negative 11/12/20. Treated with Zosyn IV and now off abx for aspiration. Vancomycin IV was stopped. Sputum cx positive for Group B strep. Blood cultures remain negative. Speech therapy has concern for dysphagia/aspiration so MBS ordered. MBS was okay. Start diet. (4) Acute respiratory failure with hypoxemia: Code(s): J96.01 - Acute respiratory failure with hypoxia Status: Acute Assessment and Plan: Patient self extubated 11/16 and now weaned to room air. Chest x-ray reviewed today showing continued improvement. Adjust meds. (5) Anemia: Qualifiers: Anemia type: unspecified type Qualified Code(s): D64.9 - Anemia, unspecified Code(s): D64.9 - Anemia, unspecified Status: Acute Assessment and Plan: Hgb 11-12 when he is well. Hgb 11.1 on admission but dropped to 7-8 range. Hgb improved today back to 9.3. B12/folate levels okay. Iron studies consistent with anemia of chronic disease. Follow. (6) Acute encephalopathy: Code(s): G93.40 - Encephalopathy, unspecified Status: Acute Assessment and Plan: CT of the brain showing no acute findings on admission. Likely secondary to septic shock, ETOH withdrawal and aspiration pneumonia with possible withdrawal seizure. This appears to be resolving (7) Septic shock: Code(s): A41.9 - Sepsis, unspecified organism; R65.21 - Severe sepsis with septic shock Status: Acute Assessment and Plan: Source of sepsis appears to be aspiration pneumonia. Patient able to be weaned off of Levophed on November 14. Blood pressure remains stable. Continue to monitor. (8) Alcohol withdrawal: Qualifiers: Complication of substance-induced condition: with perceptual disturbance Qualified Code(s): F10.232 - Alcohol dependence with withdrawal with perceptual disturbance Code(s): F10.239 - Alcohol dependence with withdrawal, unspecified Status: Acute Assessment and Plan: Patient is more awake and alert. Continue thiamine and folate. Off Precedex. (9) Acute hypokalemia: Code(s): E87.6 - Hypokalemia Status: Acute Assessment and Plan: KCL replaced. Resolved (10) DVT prophylaxis: Code(s): Z29.9 - Encounter for prophylactic measures, unspecified Status: Acute Assessment and Plan: Heparin Subjective Date/time seen: 11/20/20 16:05 Interval history: 55yo male with known history of alcoholism who presented to the hospital with acute altered mental status. COVID negative. Intubated with central line placed on 11/12. Patient self-extubated 11/16 Patient feels well today. He is oriented but talks about his dog in the [place] way. No CP or abd orlin
[2020-11-20] MEDS: NEBIVOLOL HCL 5 MG TABLET 10 MG PO (17:26)
[2020-11-20] MEDS: MAGNESIUM OXIDE 200 MG TABLET PO (21:00)
[2020-11-20] MEDS: PANTOPRAZOLE 40 MG TABLET PO (21:00)
--- NOTE | 2020-11-20 22:08 | PC.NURSE ---
This patient, [employer], was transferred to [facility] on 11/20/20 at 2208. Personal belongings sent with patient. Report given to Griselda VIRK. Appropriate documentation sent with patient.
--- NOTE | 2020-11-20 22:09 | PC.NURSE ---
This patient, [employer], was admitted to Med Surg 3 @ 22:05 in room 304. Patient/family oriented to hospital policies and general routines including ID bracelet, bed and alarms, visiting hours, pain management, procedures, bathroom and other care routines, personal items, smoking policy, room service/diet, and visiting hours. Information on how to activate the Rapid Response Team has been discussed. Patient/Family are encouraged to report perceived risks to care and to ask questions if they do not understand what they are told or what they should do.
[2020-11-21] VITALS (7 sets, daily range): BP systolic 131–140; BP diastolic 70–83; PULSE 78–96; RESP 16–20; TEMP 36.6–37.2; O2SAT 93–98
[2020-11-21] MEDS: VANCOMYCIN ORAL 125 MG/2.5 ML SYRUP PO ×5 (01:32→23:28)
[2020-11-21 06:37] LABS: Hematocrit 26.7 % (42.0-52.0); Hemoglobin 8.4 g/dL (14.0-18.0); Mean Corpuscular HGB Conc 31.5 g/dl (32-36); Mean Corpuscular Hemoglobin 24.7 pg (26-34); Mean Corpuscular Volume 78.5 fl (80-100); Mean Platelet Volume 10.8 fl (7.4-10.4); Platelet Count Result 550 k/mm3 (150-375); Red Cell Distribution Width 19.8 % (11.5-14.5); White Blood Count 18.9 K/mm3 (4.5-10.0)
[2020-11-21 07:00] LABS: Alanine Aminotransferase 13 U/L (4-50); Albumin Level 3.3 g/dL (3.5-5.1); Alkaline Phosphatase 100 U/L (38-126); Anion Gap 6 mmol/L (8-16); Aspartate Amino Transferase 32 U/L (17-59); Bilirubin,Total 0.2 mg/dL (0.2-1.3); Blood Urea Nitrogen 10 mg/dL (9-20); Calcium 8.7 mg/dL (8.4-10.2); Carbon Dioxide 25 mmol/L (22-30); Chloride 103 mmol/L (98-107); Estimated CRCL calculation 86 ml/min; Estimated Glomerular Filt Rate > 60; Glucose 96 mg/dL (75-110); Magnesium 2.1 mg/dL (1.6-2.3); Phosphorus 3.4 mg/dL (2.5-4.5); Potassium 3.4 mmol/L (3.4-5.0); Sodium 134 mmol/L (137-145)
[2020-11-21] MEDS: BUDESONIDE RESPULE NEB 0.5 MG/2 ML AMP INHALATION (07:45)
[2020-11-21] MEDS: ROSUVASTATIN 10 MG TABLET 20 MG PO (09:42)
[2020-11-21] MEDS: FOLIC ACID 1 MG TABLET PO (09:43)
[2020-11-21] MEDS: FLUoxetine HCL 20 MG CAPSULE PO (09:43)
[2020-11-21] MEDS: CYANOCOBALAMIN 1,000 MCG TABLET 1000 MCG PO (09:43)
[2020-11-21] MEDS: HEPARIN SODIUM 5,000 UNITS/ML VIAL 5000 UNITS SUB-Q ×2 (09:43→22:17)
[2020-11-21] MEDS: THIAMINE HCL 100 MG TABLET PO (09:43)
[2020-11-21] MEDS: MAGNESIUM OXIDE 200 MG TABLET PO ×2 (09:43→22:17)
[2020-11-21] MEDS: NEBIVOLOL HCL 5 MG TABLET 10 MG PO (09:44)
[2020-11-21] MEDS: PANTOPRAZOLE 40 MG TABLET PO ×2 (09:44→22:17)
--- NOTE | 2020-11-21 14:54 | PM.IMPN ---
Progress Note: A&P Assessment and Plan (1) Clostridioides difficile diarrhea: Code(s): A04.72 - Enterocolitis due to Clostridium difficile, not specified as recurrent Status: Acute Assessment and Plan: Patient with diarrhea. CT scan showing pancolitis. CDiff has returned positive. Currently on oral Vanco. Symptoms improving and diarrhea waning. WBC 30K yesterday and better today at 19K. Continue to follow. If WBC continues to improve and diarrhea manageable, will discharge tomorrow (2) Pancolitis: Code(s): K51.00 - Ulcerative (chronic) pancolitis without complications Status: Acute Assessment and Plan: Patient developed fever and underwent CT Ch/A/P 11/19. This showed diffuse PNA throughout both lungs with small bilateral pleural effusions, pancolitis and diffuse hepatic steatosis. As above. (3) Aspiration pneumonia: Qualifiers: Aspiration pneumonia type: unspecified Laterality: unspecified laterality Lung location: unspecified part of lung Qualified Code(s): J69.0 - Pneumonitis due to inhalation of food and vomit Code(s): J69.0 - Pneumonitis due to inhalation of food and vomit Status: Acute Assessment and Plan: X-ray on admission was clear but soon after was developing bilateral opacities. Concern for aspiration pneumonia. COVID negative 11/12/20. Treated with Zosyn IV and now off abx for aspiration. Vancomycin IV was stopped. Sputum cx positive for Group B strep. Blood cultures negative. Speech therapy has concern for dysphagia/aspiration so MBS ordered. MBS was okay so diet started. CXR reviewed today and is improving. (4) Acute respiratory failure with hypoxemia: Code(s): J96.01 - Acute respiratory failure with hypoxia Status: Acute Assessment and Plan: Patient self extubated 11/16 and now weaned to room air. Chest x-ray better. Resolved. (5) Anemia: Qualifiers: Anemia type: unspecified type Qualified Code(s): D64.9 - Anemia, unspecified Code(s): D64.9 - Anemia, unspecified Status: Acute Assessment and Plan: Baseline Hgb 11-12 when he is well. Hgb 11.1 on admission but dropped to 7-8 range. Hgb remaining stable in the 8-9 range. B12/folate levels okay. Iron studies consistent with anemia of chronic disease. Follow. (6) Acute encephalopathy: Code(s): G93.40 - Encephalopathy, unspecified Status: Acute Assessment and Plan: CT of the brain showing no acute findings on admission. Likely symptoms secondary to septic shock, ETOH withdrawal and/or aspiration pneumonia with possible withdrawal seizure. Resolving (7) Septic shock: Code(s): A41.9 - Sepsis, unspecified organism; R65.21 - Severe sepsis with septic shock Status: Acute Assessment and Plan: Source of sepsis appears to be aspiration pneumonia. Patient able to be weaned off of Levophed on November 14. Blood pressure remains stable. Continue to monitor. (8) Alcohol withdrawal: Qualifiers: Complication of substance-induced condition: with perceptual disturbance Qualified Code(s): F10.232 - Alcohol dependence with withdrawal with perceptual disturbance Code(s): F10.239 - Alcohol dependence with withdrawal, unspecified Status: Acute Assessment and Plan: Patient is more awake and alert. Continue thiamine and folate. Off Precedex. (9) Acute hypokalemia: Code(s): E87.6 - Hypokalemia Status: Acute Assessment and Plan: KCL replaced. Resolved (10) DVT prophylaxis: Code(s): Z29.9 - Encounter for prophylactic measures, unspecified Status: Acute Assessment and Plan: Heparin Subjective Date/time seen: 11/21/20 14:54 Interval history: 55yo male with known history of alcoholism who presented to the hospital with acute altered mental status. COVID negative. Intubated with central line place
[2020-11-22 06:00] VITALS: BP 140/83; PULSE 81; RESP 18; TEMP 36.6; O2SAT 96
[2020-11-22] MEDS: VANCOMYCIN ORAL 125 MG/2.5 ML SYRUP PO ×2 (06:02→11:43)
[2020-11-22 06:26] LABS: Hematocrit 26.6 % (42.0-52.0); Hemoglobin 8.1 g/dL (14.0-18.0); Mean Corpuscular HGB Conc 30.5 g/dl (32-36); Mean Corpuscular Hemoglobin 24.5 pg (26-34); Mean Corpuscular Volume 80.6 fl (80-100); Mean Platelet Volume 11.1 fl (7.4-10.4); Platelet Count Result 539 k/mm3 (150-375); Red Cell Distribution Width 19.6 % (11.5-14.5)
[2020-11-22 09:31] VITALS: PULSE 81
[2020-11-22] MEDS: ROSUVASTATIN 10 MG TABLET 20 MG PO (09:31)
[2020-11-22] MEDS: THIAMINE HCL 100 MG TABLET PO (09:31)
[2020-11-22] MEDS: NEBIVOLOL HCL 5 MG TABLET 10 MG PO (09:31)
[2020-11-22] MEDS: CYANOCOBALAMIN 1,000 MCG TABLET 1000 MCG PO (09:31)
[2020-11-22] MEDS: FOLIC ACID 1 MG TABLET PO (09:31)
[2020-11-22] MEDS: PANTOPRAZOLE 40 MG TABLET PO (09:31)
[2020-11-22] MEDS: FLUoxetine HCL 20 MG CAPSULE PO (09:31)
[2020-11-22] MEDS: MAGNESIUM OXIDE 200 MG TABLET PO (09:31)
[2020-11-22] MEDS: UMECLIDINIUM/VILANTEROL 62.5-25 MCG ELLIPTA 1 PUFF INHALATION (09:32)
[2020-11-22] MEDS: HEPARIN SODIUM 5,000 UNITS/ML VIAL 5000 UNITS SUB-Q (09:33)
--- NOTE | 2020-11-22 09:53 | CONS_ITS ---
DATE OF CONSULTATION: 11/19/2020 REASON FOR CONSULTATION: Diarrhea and pancolitis. HISTORY OF PRESENT ILLNESS: Mr. Painting is a 55-year-old male who was admitted to the hospital on November 11 with alcohol withdrawal. There is also suspicion of seizure. Here, he was intubated due to a concern over respiratory insufficiency and hypoxemia as well as tachycardia. He is now extubated for a number of days and has had no further respiratory difficulties. He is on 3 days of vancomycin initially IV, as well as 8 days of piperacillin and tazobactam, which is discontinued early this morning. Yesterday, he developed a single bowel movement, without the aid of laxatives, which was his first bowel movement since admission. Since last evening, however, he has had some 15 liquid bowel movements with some rectal urgency and incontinence. He has had minimal abdominal pain. No nausea or vomiting. He has had no previous such episodes. He has no unusual foods at home in terms of uncooked protein. No fever, chills, or sweats. He has been given metronidazole since early this morning. Consultation requested. He has just passed his MBS. ALLERGIES: NONE PERTINENT. HABITS: Alcohol to excess. Ex-smoker. PRESENT MEDICATIONS: No immunosuppressants. PAST MEDICAL HISTORY: In addition to the above, peripheral neuropathy, hypertension, hiatal hernia, past GI hemorrhage, GERD, esophageal varices, prior dog bite and cellulitis, right eye cataract, BPH, obesity. Remainder as per record. FAMILY HISTORY: Prostate cancer, COPD, hyperlipidemia, heart disease. SOCIAL HISTORY: has a girlfriend, 2 children. REVIEW OF SYSTEMS: Constitutional, GI, respiratory, skin, and otherwise negative. PHYSICAL EXAMINATION: GENERAL: Middle-aged male who appears actual age. No acute distress. VITAL SIGNS: T-max of 38.6 early this morning. Previous T-max up to 38.9 two days after admission, 102, 18, 148/100, 92% on room air. SKIN: Warm and dry. No rashes. No erythroderma. EENT: Pupils equal, round. The oral mucosa is well hydrated. LUNGS: Clear to auscultation and percussion. CARDIAC: Regular rate and rhythm. Tachycardic. No murmurs. ABDOMEN: Mildly obese, nontender. No mass. No organomegaly. No evident ascites. EXTREMITIES: Without clubbing, cyanosis, or edema. LABORATORY DATA: Stool studies are all in process from early today. He has had multiple blood cultures, all of which have been no growth. His sputum culture from the day after admission, group B strep. White blood cell count on arrival 16.0, was up to 29.5 the following day, they are normal several days, today 26.8, hemoglobin 8.8, which is up and platelets are 437. Chemistries with hyponatremia, hypokalemia, low phosphorus, coag-negative, coronavirus assay negative. RADIOLOGY: CT the abdomen, pelvis and chest shows infiltrates, bilateral effusions, pancolitis, gallstones, hiatal hernia, steatosis. ASSESSMENT: 1. Diarrhea, almost certainly due to C. difficile infection. His leukocytosis and abnormal CT are on this basis as well. Other causes of his leukocytosis are unlikely including community-acquired pneumonia, healthcare-associated pneumonia, bloodstream infection, or others. His recurrent fever is also on this basis. 2. Aspiration pneumonitis with fever and leukocytosis, resolved. 3. Alcoholism with withdrawal and seizure. RECOMMENDATIONS: 1. Agree to hold piperacillin. 2. As he is now able to take oral, change metronidazole to vancomycin, continue for 10-day course. 3. Follow up white blood cell count overtime. Thank you very much for asking me to see him. Please call if other questions arise. BEVERLY HERNANDEZ
[2020-11-22 14:00] VITALS: BP 132/76; PULSE 72; RESP 16; TEMP 36.6; O2SAT 98
--- NOTE | 2020-11-22 14:45 | PCNFU ---
Nutrition Follow-Up Complete: Inadequate Oral Intake as related to mechanical vent as evidenced by tube feedings. Goal: Meet estimated nutritional needs Patient has met goal. No new goal. Pt current nutrition is Regular. Last recorded weight is 85.1 kg, down from 88.9 kg on admit. Bowel Motility:+BM reported 11/21 Labs Reviewed:Hct 26.6,Hgb 8.1 Meds Noted:Vancomycin,Protonix, Crestor, Mag ox, Heparin,Folic Acid, Vit B12, Prozac, Thiamine. Additional Notes: Nutrition follow up. Patient is eating 100% of a regular diet. Isolation for Cdiff. Agree with all diet orders. Will monitor weight, labs, oral intake every 7 days.
--- NOTE | 2020-11-22 14:49 | PM.DS ---
DS: Admitting Diagnosis Admitting Diagnosis Admitting Diagnosis: Altered mental status DS: Discharge Diagnosis Discharge Diagnosis (1) Clostridioides difficile diarrhea: Code(s): A04.72 - Enterocolitis due to Clostridium difficile, not specified as recurrent Status: Acute Assessment and Plan: Patient with diarrhea. CT scan showing pancolitis. CDiff has returned positive. He was started on oral Vanco. Symptoms improved and diarrhea waning. WBC to 30K but has decreased over the past 2 days. Complete a course of Vanco. (2) Pancolitis: Code(s): K51.00 - Ulcerative (chronic) pancolitis without complications Status: Acute Assessment and Plan: Patient developed fever and underwent CT Ch/A/P 11/19. This showed diffuse PNA throughout both lungs with small bilateral pleural effusions, pancolitis and diffuse hepatic steatosis. As above. (3) Aspiration pneumonia: Qualifiers: Aspiration pneumonia type: unspecified Laterality: unspecified laterality Lung location: unspecified part of lung Qualified Code(s): J69.0 - Pneumonitis due to inhalation of food and vomit Code(s): J69.0 - Pneumonitis due to inhalation of food and vomit Status: Acute Assessment and Plan: X-ray on admission was clear but soon after was developing bilateral opacities. Concern for aspiration pneumonia. COVID negative 11/12/20. Treated with Zosyn IV and completed a coarse. Also treated with Vancomycin IV but also was stopped. Sputum cx positive for Group B strep. Blood cultures negative. Speech therapy has concern for dysphagia/aspiration so MBS ordered. MBS was okay so diet started. CXR showing improvement (4) Acute respiratory failure with hypoxemia: Code(s): J96.01 - Acute respiratory failure with hypoxia Status: Acute Assessment and Plan: Patient intubated with central line placed on 11/12. COVID negative. Patient self-extubated 11/16 and able to be weaned to room air. Chest x-ray showing improvement. (5) Anemia: Qualifiers: Anemia type: unspecified type Qualified Code(s): D64.9 - Anemia, unspecified Code(s): D64.9 - Anemia, unspecified Status: Acute Assessment and Plan: Baseline Hgb 11-12 when he is well. Hgb 11.1 on admission but dropped to 7-8 range. Hgb improved and then remained stable in the 8-9 range. B12/folate levels okay. Iron studies consistent with anemia of chronic disease. (6) Acute encephalopathy: Code(s): G93.40 - Encephalopathy, unspecified Status: Acute Assessment and Plan: CT of the brain showing no acute findings on admission. Likely symptoms secondary to septic shock, ETOH withdrawal and/or aspiration pneumonia with possible withdrawal seizure. Symptoms resolved. (7) Septic shock: Code(s): A41.9 - Sepsis, unspecified organism; R65.21 - Severe sepsis with septic shock Status: Acute Assessment and Plan: Source of sepsis appears to be aspiration pneumonia. Patient able to be weaned off of Levophed on November 14. Blood pressure remained stable since. (8) Alcohol withdrawal: Qualifiers: Complication of substance-induced condition: with perceptual disturbance Qualified Code(s): F10.232 - Alcohol dependence with withdrawal with perceptual disturbance Code(s): F10.239 - Alcohol dependence with withdrawal, unspecified Status: Acute Assessment and Plan: Patient had symptoms of alcohol withdrawal. Symptoms treated with Precedex and Librium. We continued thiamine and folate. (9) Acute hypokalemia: Code(s): E87.6 - Hypokalemia Status: Acute Assessment and Plan: KCL replaced. Resolved DS: Summary Hospital Course Reason for hospitalization: 55yo male with known history of alcoholism who presented to the hospital with acute altered mental status and acute respiratory failure with septic shock.
--- NOTE | 2020-11-26 08:54 | PC.NURSE ---
Blood cx are negative Stool cx is negative. Dr. Demetrio pizano.
== END 2020-11-22 16:52 | disposition home or self-care (01) | DRG 870 ==
LOC: ANHED 23:44 → ANHICU 11-12 01:28 → ANH3MEDSUR 11-22 08:50 → ANHICU 11-24 10:48
PROVIDERS: Internal Medicine; Internal Medicine Critical Care Medicine; Admitting Provider Family Medicine; Emergency Provider Emergency Medicine; PCP Internal Medicine; Visit Provider Family Medicine
DX: A41.9 Sepsis, unspecified organism (principal); J69.0 Pneumonitis due to inhalation of food and vomit; R65.21 Severe sepsis with septic shock; J96.01 Acute respiratory failure with hypoxia; G93.41 Metabolic encephalopathy; F10.232 Alcohol dependence with withdrawal with perceptual disturbance; F19.239 Other psychoactive substance dependence with withdrawal, unspecified; K51.00 Ulcerative (chronic) pancolitis without complications; I85.00 Esophageal varices without bleeding; A04.72 Enterocolitis due to Clostridium difficile, not specified as recurrent; R56.9 Unspecified convulsions; D69.6 Thrombocytopenia, unspecified; Z20.822 Contact with and (suspected) exposure to COVID-19; E87.6 Hypokalemia; D64.9 Anemia, unspecified; G62.9 Polyneuropathy, unspecified; K21.9 Gastro-esophageal reflux disease without esophagitis; K44.9 Diaphragmatic hernia without obstruction or gangrene; I10 Essential (primary) hypertension; N40.0 Benign prostatic hyperplasia without lower urinary tract symptoms; E83.42 Hypomagnesemia; Z79.899 Other long term (current) drug therapy; Z87.891 Personal history of nicotine dependence
CPT/HCPCS: 36415; 36600; 70450; 71045; 71046; 71250; 74176; 80048; 80053; 80076; 80202; 80307; 82274; 82375; 82607; 82746; 82805; 82948; 83010; 83050; 83540; 83550; 83605; 83615; 83735; 84100; 84132; 84443; 85025; 85027; 85055; 86850; 86900; 86901; 87015; 87040; 87045; 87046; 87070; 87086; 87147; 87177; 87205; 87209; 87269; 87272; 87324; 87427; 92610; 92611; 93005; 93306; 93970; 94002; 94003; 94640; 96374; 97110; 97116; 97161; 97165; 97530; 97535; 99285; A9270; C1751; C9113; C9803; J0131; J0360; J1644; J1940; J2250; J2543; J2765; J3010; J3360; J3370; J3411; J3475; J3480; J7030; J7040; J7050; U0003; U0005

== ENCOUNTER 2020-12-10 14:00 | Outpatient (CLI) | payer BC, SELFPAY ==
[2020-12-10 15:00] LABS: Alanine Aminotransferase 19 U/L (4-50); Albumin Level 3.9 g/dL (3.5-5.1); Alkaline Phosphatase 88 U/L (38-126); Anion Gap 9 mmol/L (8-16); Aspartate Amino Transferase 24 U/L (17-59); Bilirubin,Total 0.1 mg/dL (0.2-1.3); Blood Urea Nitrogen 8 mg/dL (9-20); Calcium 8.4 mg/dL (8.4-10.2); Carbon Dioxide 22 mmol/L (22-30); Chloride 110 mmol/L (98-107); Cholesterol 145 mg/dL (0-200); Estimated Glomerular Filt Rate > 60; Glucose 119 mg/dL (75-110); HDL Direct 54 mg/dL; Potassium 4.1 mmol/L (3.4-5.0); Sodium 141 mmol/L (137-145); Triglycerides 147 mg/dL (<150)
[2020-12-10 15:11] LABS: LDL Cholesterol Direct 72 mg/dL
== END 2020-12-10 14:01 | disposition home or self-care (01) ==
PROVIDERS: PCP Internal Medicine; Visit Provider Internal Medicine
DX: E78.5 Hyperlipidemia, unspecified (principal); Z79.899 Other long term (current) drug therapy
CPT/HCPCS: 36415; 80053; 80061

== ENCOUNTER 2021-03-02 17:48 | Observation (INO) | payer BC, SELFPAY ==
--- NOTE | ~2021-03-02 | XR_ITS ---
EXAMINATION: XR chest 1V portable EXAM DATE: 03/02/2021 22:18 INDICATION: Sternal pain. TECHNIQUE: Portable AP frontal chest x-ray was obtained. There is no prior study for comparison. FINDINGS: Moderate-sized gastroesophageal hiatal hernia. The lungs are clear. There are no pleural e ffusions. Cardiac silhouette is prominent but magnified on this AP technique. There is no pneumoth orax suspected. The bones and soft tissues are unremarkable. IMPRESSION: Moderate hiatal hernia. Reviewed, dictated and finalized at location A. IMPRESSION: Moderate hiatal hernia.
--- NOTE | ~2021-03-02 | CT_ITS ---
EXAMINATION: CT abdomen pelvis w con EXAM DATE: 03/02/2021 20:30 INDICATION: Chest pain. Pancreatitis. TECHNIQUE: Spiral CT of the abdomen and pelvis was performed following intravenous injection of 100 m L Omnipaque 350. Axial, coronal and sagittal images of the abdomen and pelvis were reviewed. The do se-length product (DLP) for this examination was 390.64 mGy-cm. The exposure was tailored according to patient size (auto mA exposure control), and iterative reconstruction (ASIR) was used as additiona l dose reduction technique. Comparison is made to prior examination from 11/19/2020. FINDINGS: There is hepatic steatosis without suspicious focal lesion identified. Spleen, adrenal glan ds, pancreas are unremarkable. There are gallstones within an otherwise unremarkable gallbladder. N o evidence of obstructive biliary disease. Portal and splenic veins are patent. Kidneys enhance sym metrically. There is no hydronephrosis. The prostate is unremarkable. Small left inguinal fat-cont aining hernia. Small umbilical fat-containing hernia. The bladder is unremarkable. There is no retr operitoneal or pelvic lymphadenopathy. There is mild scattered arteriosclerotic disease. The appendix is normal. There is mild scattered colonic diverticulosis. There is no adjacent inflamm atory change to suggest diverticulitis. Improvement resolution of previously seen colitis. There is m oderate-sized gastroesophageal hiatal hernia. There is edema of the distal esophagus, probably esopha gitis. There is expected amount of colonic stool. No free intraperitoneal gas. The heart is norm al in size. There are no pericardial or pleural effusions. Resolution of previously seen pneumonia. There are no osteoblastic or osteolytic lesions identified. IMPRESSION: 1. Esophagitis. Moderate hiatal hernia. 2. Hepatic steatosis. 3. Cholelithiasis. 4. Mild colonic diverticulosis. 5. Small fat-containing hernias. Reviewed, dictated and finalized at location A.
[2021-03-02 17:56] VITALS: BP 98/71; PULSE 108; RESP 16; O2SAT 97
[2021-03-02 18:35] LABS: Basophils Absolute Auto 0.1 K/mm3 (0.0-0.1); Basophils Percent Auto 1.6 % (0.2-1.2); Eosinophils Percent Auto 0.2 % (0-4.4); Hematocrit 27.4 % (42.0-52.0); Hemoglobin 7.9 g/dL (14.0-18.0); Immature Granulocyte Absolute 0.01 K/mm3 (0.00-0.031); Immature Granulocyte Percent A 0.2 % (0-0.5); Lymphocytes Absolute Auto 1.03 K/mm3 (0.9-3.2); Mean Corpuscular HGB Conc 28.8 g/dl (32-36); Mean Corpuscular Hemoglobin 20.8 pg (26-34); Mean Corpuscular Volume 72.3 fl (80-100); Monocytes Absolute Auto 0.8 K/mm3 (0.1-0.6); Monocytes Percent Auto 17.4 % (2.6-8.5); Neutrophils Absolute Auto 2.4 K/mm3 (1.3-6.7); Neutrophils Percent Auto 56.6 % (45.5-73.1); Platelet Count Result 53 k/mm3 (150-375); Red Blood Count 3.79 M/mm3 (4.6-6.20); Red Cell Distribution Width 20.1 % (11.5-14.5); White Blood Count 4.3 K/mm3 (4.5-10.0)
[2021-03-02] MEDS: PANTOPRAZOLE SODIUM IV 40 MG VIAL IV PUSH (18:39)
[2021-03-02] MEDS: SODIUM CHLORIDE 0.9% IV 1,000 ML 999 ML IV CONT (18:42)
[2021-03-02 18:46] LABS: Alanine Aminotransferase 37 U/L (4-50); Albumin Level 4.6 g/dL (3.5-5.1); Alkaline Phosphatase 74 U/L (38-126); Anion Gap 22 mmol/L (8-16); Aspartate Amino Transferase 84 U/L (17-59); Bilirubin,Total 0.5 mg/dL (0.2-1.3); Blood Urea Nitrogen 13 mg/dL (9-20); Calcium 8.4 mg/dL (8.4-10.2); Carbon Dioxide 19 mmol/L (22-30); Chloride 103 mmol/L (98-107); Estimated CRCL calculation 69 ml/min; Estimated Glomerular Filt Rate > 60; Glucose 82 mg/dL (75-110); Lipase 189 U/L (23-300); Potassium 3.6 mmol/L (3.4-5.0); Sodium 144 mmol/L (137-145)
[2021-03-02 18:59] LABS: Ethanol 461 mg/dL (<10)
[2021-03-02 19:00] LABS: Platelet Estimate Decreased (Adequate)
[2021-03-02 19:01] LABS: Anisocytosis 3+ (NORMAL); Hypochromasia 1+ (NORMAL)
[2021-03-02 19:02] LABS: Ovalocytes 1+ (NORMAL)
[2021-03-02 19:22] VITALS: BP 111/70; PULSE 98; RESP 16; O2SAT 96
--- NOTE | 2021-03-02 19:59 | ED.GENADULT ---
HPI - General Adult General Chief complaint: Abdominal Pain Stated complaint: abd pain r/o pancreatitis, sent by PCP Time Seen by Provider: 03/02/21 18:02 Source: patient, RN notes reviewed, old records reviewed and other (Patient's primary care doctor Dr. Jonah Anne) Mode of arrival: ambulatory Limitations: no limitations History of Present Illness HPI narrative: Patient is a 56-year-old male who presents per request of primary care for evaluation of intermittent nausea and vomiting for the last 2 days patient was sent by primary care doctor office for this patient on arrival notes that he has been having intermittent nausea with epigastric abdominal pain for the last couple of days. Patient with history of chronic alcohol abuse. Patient notes he last drank last night. Patient denies any rectal bleeding melena or hematemesis or other complaints Related Data Home Medications Medication Instructions Recorded Confirmed Thera M Plus (ferrous fumarat) 1 tablet PO DAILY 08/10/19 12/14/20 omega-3 fatty acids 1,000 mg 2,000 mg PO BID cap 02/23/20 12/14/20 capsule cyanocobalamin (vitamin B-12) 1,000 mcg PO DAILY 08/18/20 12/14/20 1,000 mcg tablet carvedilol 03/02/21 03/02/21 doxepin 03/02/21 fluoxetine mg 03/02/21 pantoprazole PO 03/02/21 rosuvastatin mg 03/02/21 umeclidinium-vilanterol [Anoro INHALATION 03/02/21 Ellipta] Allergies Allergy/AdvReac Type Severity Reaction Status Date / Time bee venom protein (honey bee) Allergy Severe Swelling Verified 12/13/20 14:08 Review of Systems Review of Systems: All systems reviewed & are unremarkable except as noted in HPI and below PMFSH Past Medical History Medical History Abdominal pain Acute hypokalemia Alcohol withdrawal Anxiety BMI 27.0-27.9,adult BMI 28.0-28.9,adult BMI 31.0-31.9,adult BMI 32.0-32.9,adult BPH (benign prostatic hyperplasia) Cataract, right eye Cellulitis Cough Depression ARAUJO (dyspnea on exertion) Dog bite of extremity DVT prophylaxis Elevated homocysteine Encounter for preventive health examination Encounter for routine adult health examination with abnormal findings Encounter for special screening examination for neoplasm of prostate Esophageal varices Patient had some bleeding varices in the past. Fatigue Fever Follow up GERD (gastroesophageal reflux disease) GI bleed Headache Hiatal hernia HTN (hypertension) Injury of left foot including toes Lactic acidosis Nausea and vomiting On detention drug therapy Peripheral neuropathy Persistent cough Rash Ulcer Vitamin D deficiency Withdrawal seizures Surgical History Surgical History History of colonoscopy History of esophagogastroduodenoscopy (EGD) Family History Family History Mother Family history of mental disorder Family history of lung cancer Father Family history of chronic obstructive pulmonary disease Malignant neoplasm of prostate Other Family history of cardiovascular disease Family history of hypercholesterolemia Hypertension Social History Social History Social History: The patient is and now has a girlfriend. He states that his girlfriend is very supportive. He has 2 children. Designated as a full code. 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
[2021-03-02] MEDS: THIAMINE HCL INJ 100 MG, FOLIC ACID INJ 1 MG, MULTIVITAMINS-12 INJ VIAL 1 5 ML, MULTIVI... 999 MG IV CONT (20:12)
--- NOTE | 2021-03-02 20:36 | PC.NURSE ---
Patient was over heard using profanity. Family member of patient in next room came to report that the patient in the next room was irritated and cussing. Patient called nurses station using profanity. When I went in to assist patient, patient then proceeded to use profanity at me and also stated to me that he would just leave.
--- NOTE | 2021-03-02 20:53 | PC.NURSE ---
This RN asked pt to be aware of the language he uses, as he is in a shared room with another pt. Pt states Thats it, I want to fucking leave. Get my papers ready . EDP notified.
[2021-03-02 20:55] VITALS: BP 129/85; PULSE 95; RESP 16; O2SAT 100
[2021-03-02 22:39] VITALS: BP 131/73; PULSE 89; RESP 16; O2SAT 100
[2021-03-02 22:39] LABS: INR 1.1; Lactic Acid Reflex 2.3 mmol/L (0.7-2.1); Prothrombin Time 14.6 Seconds (11.1-14.7)
[2021-03-02 22:40] LABS: Partial Thromboplastin Time 27.5 SECONDS (22.3-36.8)
--- NOTE | 2021-03-02 22:53 | PC.NURSE ---
Attempted to give report to 3rd Med/Surg. Spoke with Armando VIRK and was told receiving nurse was busy in a room and will call back when available.
[2021-03-02 23:26] VITALS: BP 128/67; PULSE 87; RESP 20; TEMP 36.4; O2SAT 100
[2021-03-02 23:53] VITALS: BMI 58.6
[2021-03-03] VITALS (7 sets, daily range): BP systolic 120–145; BP diastolic 58–84; PULSE 76–110; RESP 16–18; TEMP 36.4–37.4; O2SAT 98–100
[2021-03-03 01:26] LABS: Reflex Lactic Acid Yes or No Add Lactic
[2021-03-03 02:44] LABS: Basophils Absolute Auto 0.1 K/mm3 (0.0-0.1); Basophils Percent Auto 1.4 % (0.2-1.2); Eosinophils Percent Auto 0.6 % (0-4.4); Hematocrit 25.1 % (42.0-52.0); Hemoglobin 7.1 g/dL (14.0-18.0); Immature Granulocyte Absolute 0.01 K/mm3 (0.00-0.031); Immature Granulocyte Percent A 0.3 % (0-0.5); Immature Platelet Fraction Pct 5.3 % (0.9-11.2); Lymphocytes Absolute Auto 0.78 K/mm3 (0.9-3.2); Lymphocytes Percent Auto 21.9 % (18.3-44.2); Mean Corpuscular HGB Conc 28.3 g/dl (32-36); Mean Corpuscular Hemoglobin 20.7 pg (26-34); Mean Corpuscular Volume 73.2 fl (80-100); Monocytes Absolute Auto 0.6 K/mm3 (0.1-0.6); Monocytes Percent Auto 15.4 % (2.6-8.5); Neutrophils Absolute Auto 2.2 K/mm3 (1.3-6.7); Neutrophils Percent Auto 60.4 % (45.5-73.1); Platelet Count Result 40 k/mm3 (150-375); Red Blood Count 3.43 M/mm3 (4.6-6.20); White Blood Count 3.6 K/mm3 (4.5-10.0)
[2021-03-03 02:55] LABS: Lactic Acid 1.6 mmol/L (0.7-2.1)
[2021-03-03 02:57] LABS: Alanine Aminotransferase 33 U/L (4-50); Albumin Level 3.7 g/dL (3.5-5.1); Alkaline Phosphatase 59 U/L (38-126); Anion Gap 14 mmol/L (8-16); Aspartate Amino Transferase 71 U/L (17-59); Bilirubin,Total 0.4 mg/dL (0.2-1.3); Blood Urea Nitrogen 10 mg/dL (9-20); Calcium 7.8 mg/dL (8.4-10.2); Carbon Dioxide 24 mmol/L (22-30); Chloride 105 mmol/L (98-107); Estimated CRCL calculation 123 ml/min; Estimated Glomerular Filt Rate > 60; Glucose 72 mg/dL (75-110); Sodium 143 mmol/L (137-145)
[2021-03-03 03:06] LABS: Hypochromasia 2+ (NORMAL); Platelet Estimate Decreased (Adequate)
[2021-03-03 03:07] LABS: Anisocytosis 1+ (NORMAL)
--- NOTE | 2021-03-03 03:28 | ADMGEN ---
This patient, Jones Painting, was admitted to [facility] Surg Room 321-01 at 23:15. Patient/family oriented to hospital policies and general routines including ID bracelet, bed and alarms, visiting hours, pain management, procedures, bathroom and other care routines, personal items, smoking policy, room service/diet, and visiting hours. Information on how to activate the Rapid Response Team has been discussed. Patient/Family are encouraged to report perceived risks to care and to ask questions if they do not understand what they are told or what they should do.
[2021-03-03] MEDS: LACTATED RINGERS 1,000 ML 125 ML IV CONT ×3 (04:42→16:35)
--- NOTE | 2021-03-03 07:12 | PC.NURSE ---
Addendum entered by Irasema Ontiveros RN 03/03/21 08:31: 0830: Dr. Kimberly Alas returned my call and was given Dr. Fulton's contact information . She verbalized that she would give him a call regarding scope mentioned below. Original Note: 0710: Dr. Fernie Fulton visited pt this morning and instructed that the Hospitalist would pls give him a call as he'd like pt scoped today. Hospitalist today for Rm [id number] Kimberly Alas. Will notify Dr. Alas of such and await respond. Will endorse to AM shift.
--- NOTE | 2021-03-03 08:44 | PM.IMHP ---
H&P: HPI History of Present Illness Date/Time: 03/03/21 08:44 Chief Complaint: Nausea vomiting Narrative: This is a 56-year-old male with past medical history significant for alcohol dependence, esophagitis, hepatic steatosis, hiatal hernia. patient presented to the emergency room due to nausea and vomiting for about a month presented to his primary care physician's office who advised him to present to the emergency room to our facility. Patient has been admitted to regular medical floor. he denies any fevers chills rigors has had nausea vomiting and abdominal pain patient states that he drinks 5-6 vodka shots a day. he had a period of abstinence but recently relapsed. no shortness of breath no cough no sputum production, no hematemesis, no melena. CBC was significant for a platelet count in the 50,[address] of abdomen and pelvis was significant for esophagitis, hepatic steatosis, hernia, cholelithiasis and diverticulosis. decision has been made to admit the patient to regular medical floor. Review of Systems Review of Systems: Narrative: laying in good All systems reviewed & are unremarkable except as noted in HPI and below Constitutional: Constitutional: Denies chills, Reports fatigue, Denies fever(s), Reports lethargy and Denies weakness Eyes: Eyes: Denies change in vision ENT: Reports Normal hearing present, Denies headache(s) and Denies neck pain Cardiovascular: Cardiovascular: Denies diaphoresis, Denies irregular heart rhythm, Denies claudication, Denies radiating jaw, neck or arm pain, Denies palpitations, Denies dyspnea, Denies dyspnea on exertion and Denies orthopnea Respiratory: Respiratory: Denies cough, Denies dyspnea on exertion and Denies wheezing Gastrointestinal: Gastrointestinal: Reports abdominal pain, Denies melena, Reports nausea and Reports vomiting Genitourinary: Genitourinary: Denies dysuria Musculoskeletal: Musculoskeletal: Denies muscle cramps, Denies muscle weakness and Denies neck pain Integumentary/Breasts: Skin/Breast: Denies rash Neurologic: Reports Normal hearing present, Denies vertigo, Denies dizziness, Denies focal weakness and Reports tremor(s) Psychiatric: Psychiatric: Reports anxiety Endocrine: Endocrine: Reports no additional endocrine complaints Hematologic/Lymphatic: Hematologic/Lymphatic: Reports no additional hematologic/lymphatic complaints Allergic/Immunologic: Allergic/Immunologic: Reports no additional allergic/immunologic complaints PMFSH Past Medical History Medical History (Updated 03/03/21 @ 14:27 by Ish Sarabia MD) Abdominal pain Acute hypokalemia Alcohol withdrawal Anorexia Anxiety BMI 27.0-27.9,adult BMI 28.0-28.9,adult BMI 31.0-31.9,adult BMI 32.0-32.9,adult BPH (benign prostatic hyperplasia) Cataract, right eye Cellulitis Cough Depression ARAUJO (dyspnea on exertion) Dog bite of extremity DVT prophylaxis Elevated homocysteine Encounter for preventive health examination Encounter for routine adult health examination with abnormal findings Encounter for special screening examination for neoplasm of prostate Epigastric pain Esophageal varices Patient had some bleeding varices in the past. Fatigue Fever Follow up GERD (gastroesophageal reflux disease) GI bleed Headache Hiatal hernia HTN (hypertension) Injury of left foot including toes Lactic acidosis Nausea and vomiting On nursing home drug therapy Pancytopenia Peripheral neuropathy Persistent cough Rash Ulcer Vitamin D deficiency Withdrawal seizures Surgical History Surgical History History of colonoscopy History of esophagogastroduodenoscopy (EGD) Family History Family History Mother Family history of mental disorder Family history of lung cancer Father Family history of chronic obstructive pulmonary disease Malignant neoplasm of prostate Other Family hist
[2021-03-03] MEDS: ONDANSETRON INJ 4 MG/2 ML VIAL IV PUSH (08:56)
[2021-03-03] MEDS: PANTOPRAZOLE SODIUM IV 40 MG VIAL IV PUSH (08:59)
[2021-03-03] MEDS: FAMOTIDINE 20 MG/2 ML VIAL IV PUSH ×2 (08:59→21:28)
[2021-03-03 13:15] LABS: Lactate Dehydrogenase 467 U/L (313-618)
[2021-03-03 13:28] LABS: Iron 23 ug/dL (49-181)
[2021-03-03 13:37] LABS: Percent Iron Saturation 7 % (20-50)
--- NOTE | 2021-03-03 14:15 | WPDGICN ---
Assessment and Plan Assessment and plan (1) Nausea & vomiting: Code(s): R11.2 - Nausea with vomiting, unspecified Status: Acute Assessment and Plan: intractable nausea, probably to excessive alcohol use. last egd 2019 showed erosive esophagitis, also reviewed CT scan with similar finding continue with iv protonix and will do EGD tomorrow patient says that he needs to leave the hospital tomorrow evening in order to go in his trip only mild elevated transminases, normal bili get hepatitis panel (2) Alcohol intoxication: Code(s): F10.929 - Alcohol use, unspecified with intoxication, unspecified Status: Acute Assessment and Plan: he is high risk of DT/withdrawal (had encephalopathy and seizures in previous hospitalization) CIWA protocol, banana bag and medical support (3) Epigastric pain: Code(s): R10.13 - Epigastric pain Status: Acute Assessment and Plan: egd tomorrow (4) Pancytopenia: Code(s): D61.818 - Other pancytopenia Status: Acute Assessment and Plan: probably from alcohol abuse and BM toxicity but wonder if could have cirrhosis will do egd tomorrow to assess if phg, varices, etc (5) Anorexia: Code(s): R63.0 - Anorexia Status: Acute (6) Acute dehydration: Code(s): E86.0 - Dehydration Status: Acute Assessment and Plan: on iv fluids and support in the hospital GI Consult Note Consult date/time: 03/03/21 14:15 Reason for consult: n/v, weight loss HPI: Jones Painting is a 56 year old male who is an alcoholic (he has been inpatient rehab last year sober for almost 7 months but started drinking again- normally 5-6 vodka daily since he was 16 yo), previous hospitalization 2019 with alcohol withdrawal, n/v, EGD revealed grade 3 erosive esophagitis using ppi. Earlier this year admitted again with sepsis, alcohol withdrawal, pneumonia and C diff colitis treated medically. He has been sick for almost a month to the point that has not been able to drink much alcohol last week, also intermittent epigastric pain, moderate intensity. Given ongoing nausea and dry heaving he went to see his doctor who advised to go to ER, then admitted to hospital. He says that is going to [place] this weekend in a vacation trip. Alcohol level was high, mild elevated lactic but normal today, normal creatinine and bili. Platelets 40, hb 7.1, wbc 3.4. CT scan a/p reviewed, showed esophagitis, moderate hiatal hernia, hepatic steatosis, cholelithiasis, mild colonic diverticulosis, small fat-containing hernias. He denies overt gib, he says that is uptodate with his colonoscopies. Review of Systems Constitutional: Constitutional: Reports lethargy Eyes: Eyes: Denies blurry vision ENT: Reports Normal hearing present Cardiovascular: Cardiovascular: Denies diaphoresis Respiratory: Respiratory: Denies cough Gastrointestinal: Gastrointestinal: Reports abdominal pain, Denies melena, Reports nausea and Reports vomiting Genitourinary: Genitourinary: Denies dysuria Musculoskeletal: Musculoskeletal: Denies neck pain Integumentary/Breasts: Skin/Breast: Denies dry skin Neurologic: Denies headache(s) Psychiatric: Psychiatric: Reports anxiety [facility] Past Medical History Medical History (Updated 03/03/21 @ 14:27 by Ish Sarabia MD) Abdominal pain Acute hypokalemia Alcohol withdrawal Anorexia Anxiety BMI 27.0-27.9,adult BMI 28.0-28.9,adult BMI 31.0-31.9,adult BMI 32.0-32.9,adult BPH (benign prostatic hyperplasia) Cataract, right eye Cellulitis Cough Depression ARAUJO (dyspnea on exertion) Dog bite of extremity DVT prophylaxis Elevated homocysteine Encounter for preventive health examination Encounter for routine adult health examination with abnormal findings Encounter for special screening examination for neoplasm of prostate Epigastric pain Esophageal varices Patient had some bleeding varices in the past. Fatigue Fever
[2021-03-03 14:22] LABS: Folic Acid 13.2 ng/mL (2.76->20)
[2021-03-03] MEDS: LORazepam INJ (*CRX) 2 MG/ML VIAL 1 MG IV PUSH ×2 (16:49→21:28)
--- NOTE | 2021-03-03 18:28 | PDONCCN ---
HPI - Date of Consult Date/Time: 03/03/21 18:28 Requesting Physician: Joycelyn Olivas DO Primary Care Provider: Fernie Fulton MD - Consult Narrative Narrative: Jones Painting is a 56 year old male with past medical history significant for alcohol dependence, DT and withdrawal seizures, esophagitis, hepatic steatosis, hiatal hernia and cytopenias. Patient was sent to the ED by his PCP on 03/02/21 due to nausea, vomiting and abdominal pain for about a month. CT of abdomen and pelvis was significant for esophagitis, hepatic steatosis, hernia, cholelithiasis and diverticulosis. CBC significant for pancytopenia with plt of 40k Hb of 7.1 and WBC of 3.6, INR of 1.1, LFTs unremarkable, T bili 0.4. Ethol levels high in the ED. He was admitted to the regular medical floor and evaluated by GI for EGD to rule out upper GI bleeding or varices. Hematology consulted for pancytopenia. Patient reports trying to quit ethol intake, but recently admitted in November after a fall and LOC which he believes were seizures after tried to quit abruptly. At the moment pt continues to have dry heaving and beginning to feel anxious. Has not had any benzos since ED last night and has started to show some lip and and tremor. Review of Systems - Review of Systems All systems reviewed & are unremarkable except as noted in HPI and bel - Neurologic Reports hearing normal, Reports tremor(s), Denies vertigo, Denies headache(s), Denies focal weakness, Denies weakness [facility] Medical History: Medical History (Last Updated 03/03/21 @ 14:27 by Ish Sarabia MD) Abdominal pain Acute hypokalemia Alcohol withdrawal Anorexia Anxiety BMI 27.0-27.9,adult BMI 28.0-28.9,adult BMI 31.0-31.9,adult BMI 32.0-32.9,adult BPH (benign prostatic hyperplasia) Cataract, right eye Cellulitis Cough Depression ARAUJO (dyspnea on exertion) Dog bite of extremity DVT prophylaxis Elevated homocysteine Encounter for preventive health examination Encounter for routine adult health examination with abnormal findings Encounter for special screening examination for neoplasm of prostate Epigastric pain Esophageal varices Patient had some bleeding varices in the past. Fatigue Fever Follow up GERD (gastroesophageal reflux disease) GI bleed Headache Hiatal hernia HTN (hypertension) Injury of left foot including toes Lactic acidosis Nausea and vomiting On longterm drug therapy Pancytopenia Peripheral neuropathy Persistent cough Rash Ulcer Vitamin D deficiency Withdrawal seizures Surgical History: Surgical History (Last Reviewed 03/02/21 @ 20:00 by Ciro Shepard PA-C) History of colonoscopy History of esophagogastroduodenoscopy (EGD) Family History: Family History (Last Reviewed 03/02/21 @ 11:39 by Kimberlee Goodwin [facility]) Mother Family history of mental disorder Family history of lung cancer Father Family history of chronic obstructive pulmonary disease Malignant neoplasm of prostate Other Family history of cardiovascular disease Family history of hypercholesterolemia Hypertension - Social History Social History: Social History (Last Reviewed 03/02/21 @ 20:00 by Ciro Shepard PA-C) Gender Identity: Gender identity (if verbalized by the patient): Male Sexual Orientation: Sexual Orientation (if Verbalized by the Patient): Straight or Heterosexual Alcohol Use: Alcohol intake: current Drinks per week: 10 Substance Use: Substance use: never Substance use type: does not use Other substance usage details: drinks 1/2 of a 5th vodka daily Others: Spiritual care concerns: No Agree to blood products: Yes Smoking Status: Smoking status: Former smoker Tobacco type: cigarettes Second hand tobacco smoke exposure: No Meds Home Medications Medication Instructions Recorded Confirmed Type Thera M Plus (ferrous fumarat) 1 tablet PO DAILY 08/10/19 03/03/21 History
[2021-03-03] MEDS: chlordiazePOXIDE (*CRX) 25 MG CAPSULE 75 MG PO ×2 (18:40→23:57)
[2021-03-03] MEDS: OMEGA 3 POLYUNSAT FATTY ACIDS 1 GM CAP 2 GM PO (18:55)
[2021-03-03] MEDS: GABAPENTIN 300 MG CAPSULE PO (21:28)
[2021-03-04] VITALS (8 sets, daily range): BP systolic 108–149; BP diastolic 58–96; PULSE 73–137; RESP 16–20; TEMP 36.2–36.8; O2SAT 97–100
[2021-03-04] MEDS: LACTATED RINGERS 1,000 ML 125 ML IV CONT (05:20)
[2021-03-04] MEDS: chlordiazePOXIDE (*CRX) 25 MG CAPSULE 75 MG PO ×2 (05:21→13:30)
[2021-03-04 07:39] LABS: Hepatitis B Surface Antigen Negative (Negative)
[2021-03-04 07:45] LABS: HAV RESULT Negative (Negative); Hepatitis B Core IgM Result Negative (Negative)
[2021-03-04 07:57] LABS: Hepatitis C Virus Antibody Negative (Negative)
[2021-03-04] MEDS: LORazepam INJ (*CRX) 2 MG/ML VIAL 1 MG IV PUSH (08:37)
[2021-03-04] MEDS: FAMOTIDINE 20 MG/2 ML VIAL IV PUSH (08:39)
[2021-03-04] MEDS: UMECLIDINIUM/VILANTEROL 62.5-25 MCG ELLIPTA 1 PUFF INHALATION (08:39)
[2021-03-04] MEDS: LACTATED RINGERS 1,000 ML 150 ML IV CONT (10:03)
--- NOTE | 2021-03-04 10:44 | WPDANESEPPF ---
Anes - Initial Pre Proc Eval Procedure: Operation Date: 03/04/21 13:45 Proposed Procedures p Esophagogastroduodenoscopy - Ish Sarabia MD Date/Time: 03/04/21 10:44 Surgeon: Joycelyn Olivas DO Pre Op Diagnosis: Alcohol Intoxication,Nausea & Vomiting,Dehydration Patient Data Age: 56 Gender: M Height: 1.73 m Weight: 83 kg Last Vital Signs Temp 97.1 F L 03/04/21 09:58 Pulse 101 H 03/04/21 09:58 Resp 18 03/04/21 09:58 BP 140/81 03/04/21 09:58 Pulse Ox 97 03/04/21 09:58 Allergies Allergy/AdvReac Type Severity Reaction Status Date / Time bee venom protein (honey bee) Allergy Severe Swelling Verified 03/04/21 09:58 Home Medications Medication Instructions Recorded Confirmed Type Thera M Plus (ferrous fumarat) 1 tablet PO DAILY 08/10/19 03/03/21 History gabapentin 300 mg capsule 300 mg PO .at bedtime #90 cap 02/23/20 03/03/21 Rx omega-3 fatty acids 1,000 mg 2,000 mg PO BID cap 02/23/20 03/03/21 History capsule folic acid 1 mg tablet 1 mg PO QAM #90 tablet 06/23/20 03/03/21 Rx pantoprazole 40 mg tablet,delayed 40 mg PO Q12H #180 tablet 06/23/20 03/03/21 Rx release thiamine HCl (vitamin B1) 100 mg 100 mg PO QAM #90 tablet 06/23/20 03/03/21 Rx tablet cyanocobalamin (vitamin B-12) 1,000 mcg PO DAILY 08/18/20 03/03/21 History 1,000 mcg tablet umeclidinium 62.5 mcg-vilanterol 1 inh INHALATION DAILY #60 ea 09/06/20 03/03/21 Rx 25 mcg/actuation powdr for inhalation doxepin 50 mg capsule 50 mg PO .COMPLEX PRN #30 cap 11/24/20 03/03/21 Rx fluoxetine 20 mg capsule 20 mg PO DAILY #30 cap 11/25/20 03/03/21 Rx rosuvastatin 20 mg tablet 20 mg PO DAILY #30 tablet 12/08/20 03/03/21 Rx Laboratory Tests 03/03/21 03/03/21 03/03/21 12:59 12:59 12:59 Haptoglobin Iron 23 ug/dL L ug/dL (49-181) TIBC 346 ug/dL ug/dL (265-497) % Saturation 7 % L % (20-50) Ferritin Lactate Dehydrogenase 467 U/L U/L (313-618) Vitamin B12 637.0 pg/mL pg/mL (239-931) Folate 13.2 ng/mL ng/mL (2.76->20) Hepatitis A IgM Ab Hep Bs Antigen Hep B Core IgM Ab Hepatitis C Ab Screen 03/03/21 03/03/21 03/04/21 12:59 12:59 06:01 Haptoglobin Pending Iron TIBC % Saturation Ferritin 32.90 ng/mL ng/mL (11.1-264) Lactate Dehydrogenase Vitamin B12 Folate Hepatitis A IgM Ab Negative (Negative) Hep Bs Antigen Negative (Negative) Hep B Core IgM Ab Negative (Negative) Hepatitis C Ab Screen Negative (Negative) Patient hx anesthesia problems: none Family hx anesthesia problems: none PMFSH Past Medical History Medical History (Updated 03/03/21 @ 18:36 by Desean Goyal MD) Abdominal pain Acute hypokalemia Alcohol withdrawal Anorexia Anxiety BMI 27.0-27.9,adult BMI 28.0-28.9,adult BMI 31.0-31.9,adult BMI 32.0-32.9,adult BPH (benign prostatic hyperplasia) Cataract, right eye Cellulitis Cough Depression ARAUJO (dyspnea on exertion) Dog bite of extremity DVT prophylaxis Elevated homocysteine Encounter for preventive health examination Encounter for routine adult health examination with abnormal findings Encounter for special screening examination for neoplasm of prostate Epigastric pain Esophageal varices Patient had some bleeding varices in the past. 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
[2021-03-04] MEDS: SUCRALFATE SUSP 100 MG/ML 10 ML UDC 1000 MG PO (13:32)
--- NOTE | 2021-03-04 13:34 | PM.DS ---
DS: Admitting Diagnosis Admitting Diagnosis Admitting Diagnosis: 1) Nausea & vomiting: Code(s): R11.2 - Nausea with vomiting, unspecified Status: Acute Assessment and Plan: likely secondary to alcohol intake NPO IV fluids running planning for EGD (2) Epigastric pain: Code(s): R10.13 - Epigastric pain Status: Acute Assessment and Plan: continue PPI supportive care appreciate GI note (3) Anorexia: Code(s): R63.0 - Anorexia Status: Acute Assessment and Plan: likely secondary to longstanding alcohol intake may benefit from appetite stimulant (4) Pancytopenia: Code(s): D61.818 - Other pancytopenia Status: Acute Assessment and Plan: likely secondary to alcohol toxicity poor p.o. intake as well liver disease (5) Alcohol intoxication: Code(s): F10.929 - Alcohol use, unspecified with intoxication, unspecified Status: Acute Assessment and Plan: resolved (6) Acute dehydration: Code(s): E86.0 - Dehydration Status: Acute Assessment and Plan: continue IV fluid (7) Alcohol withdrawal: Qualifiers: Complication of substance-induced condition: with perceptual disturbance Qualified Code(s): F10.232 - Alcohol dependence with withdrawal with perceptual disturbance Code(s): F10.239 - Alcohol dependence with withdrawal, unspecified Status: Acute Assessment and Plan: [facility] protocol ongoing (8) GERD (gastroesophageal reflux disease): Qualifiers: Esophagitis presence: without esophagitis Qualified Code(s): K21.9 - Gastro-esophageal reflux disease without esophagitis Code(s): K21.9 - Gastro-esophageal reflux disease without esophagitis Status: Chronic Assessment and Plan: DS: Discharge Diagnosis Discharge Diagnosis (1) Nausea & vomiting: Code(s): R11.2 - Nausea with vomiting, unspecified Status: Acute Assessment and Plan: likely secondary to alcohol intake status post EGD GI report reviewed (2) Epigastric pain: Code(s): R10.13 - Epigastric pain Status: Acute Assessment and Plan: continue PPI supportive care appreciate GI note added sucralfate (3) Anorexia: Code(s): R63.0 - Anorexia Status: Acute Assessment and Plan: likely secondary to longstanding alcohol intake may benefit from appetite stimulant (4) Pancytopenia: Code(s): D61.818 - Other pancytopenia Status: Acute Assessment and Plan: likely secondary to alcohol toxicity poor p.o. intake as well liver disease (5) Alcohol intoxication: Code(s): F10.929 - Alcohol use, unspecified with intoxication, unspecified Status: Acute Assessment and Plan: resolved (6) Acute dehydration: Code(s): E86.0 - Dehydration Status: Acute Assessment and Plan: continue IV fluid (7) Alcohol withdrawal: Qualifiers: Complication of substance-induced condition: with perceptual disturbance Qualified Code(s): F10.232 - Alcohol dependence with withdrawal with perceptual disturbance Code(s): F10.239 - Alcohol dependence with withdrawal, unspecified Status: Acute Assessment and Plan: [employer] protocol ongoing (8) GERD (gastroesophageal reflux disease): Qualifiers: Esophagitis presence: without esophagitis Qualified Code(s): K21.9 - Gastro-esophageal reflux disease without esophagitis Code(s): K21.9 - Gastro-esophageal reflux disease without esophagitis Status: Chronic Assessment and Plan: PPI DS: Summary Hospital Course Reason for hospitalization: nausea vomiting Hospital Course: This is a 56-year-old male with past medical history significant for alcohol dependence, esophagitis, hepatic steatosis, hiatal hernia. patient presented to the emergency room due to nausea and vomiting for about a month presented to ms
--- NOTE | 2021-03-04 15:14 | PC.NURSE ---
Pt has been discharged. Pt had his IV removed, and discharge paperwork has been reviewed with pt. Pt exhibited good understanding of all follow up instructions. Pt was wheeled oout in a wheelchair to the front door.
[2021-03-06 09:30] LABS: Haptoglobin 89 mg/dL (43-212)
== END 2021-03-04 15:10 | disposition home or self-care (01) ==
LOC: ANHED 22:12 → ANH3MEDSUR 03-03 10:54
PROVIDERS: Emergency Medicine Emergency Medical Services; Internal Medicine Gastroenterology; Internal Medicine Medical Oncology; Admitting Provider Internal Medicine; Emergency Provider Emergency Medicine; PCP Internal Medicine; Visit Provider Internal Medicine
PROC: 0DJ08ZZ Inspection of Upper Intestinal Tract, Via Natural or Artificial Opening Endoscopic (ICD-10-PCS; CPT 43235; principal; 2021-03-04 13:45)
DX: K21.00 Gastro-esophageal reflux disease with esophagitis, without bleeding (principal); F10.20 Alcohol dependence, uncomplicated; K29.70 Gastritis, unspecified, without bleeding; K29.80 Duodenitis without bleeding; K44.9 Diaphragmatic hernia without obstruction or gangrene; K76.0 Fatty (change of) liver, not elsewhere classified; D61.818 Other pancytopenia; E86.0 Dehydration; F10.239 Alcohol dependence with withdrawal, unspecified; R11.2 Nausea with vomiting, unspecified; R10.13 Epigastric pain; R63.0 Anorexia; Y90.8 Blood alcohol level of 240 mg/100 ml or more; Z87.891 Personal history of nicotine dependence
CPT/HCPCS: 43239; 36415; 71045; 74177; 80053; 80074; 80307; 82607; 82728; 82746; 83010; 83540; 83550; 83605; 83615; 83690; 85025; 85055; 85610; 85730; 88108; 88305; 96361; 96365; 96366; 96375; 96376; 99285; A9270; C9113; G0378; J2060; J2405; J2704; J3411; J3475; J7030; J7120; Q9967

== ENCOUNTER 2021-04-22 08:08 | Outpatient (CLI) | payer BC, SELFPAY ==
[2021-04-22 09:13] LABS: Basophils Absolute Auto 0.1 K/mm3 (0.0-0.1); Eosinophils Absolute Auto 0.1 K/mm3 (0-0.3); Eosinophils Percent Auto 1.6 % (0-4.4); Hematocrit 31.5 % (42.0-52.0); Immature Granulocyte Absolute 0.01 K/mm3 (0.00-0.031); Immature Granulocyte Percent A 0.2 % (0-0.5); Immature Platelet Fraction Pct 5.8 % (0.9-11.2); Lymphocytes Absolute Auto 0.84 K/mm3 (0.9-3.2); Mean Corpuscular HGB Conc 28.6 g/dl (32-36); Mean Corpuscular Hemoglobin 21.4 pg (26-34); Mean Corpuscular Volume 74.8 fl (80-100); Monocytes Absolute Auto 0.5 K/mm3 (0.1-0.6); Monocytes Percent Auto 9.7 % (2.6-8.5); Neutrophils Absolute Auto 3.5 K/mm3 (1.3-6.7); Neutrophils Percent Auto 70.5 % (45.5-73.1); Platelet Count Result 46 k/mm3 (150-375); Red Blood Count 4.21 M/mm3 (4.6-6.20); Red Cell Distribution Width 24.9 % (11.5-14.5); White Blood Count 4.9 K/mm3 (4.5-10.0)
[2021-04-22 09:25] LABS: Hemoglobin A1C 5.2 % (<5.7)
[2021-04-22 09:38] LABS: LDL Cholesterol Direct 86 mg/dL
[2021-04-22 09:40] LABS: Free T4 Free Thyroxine 0.87 ng/mL (0.78-2.19)
[2021-04-22 09:45] LABS: Alanine Aminotransferase 26 U/L (4-50); Albumin Level 4.3 g/dL (3.5-5.1); Alkaline Phosphatase 82 U/L (38-126); Anion Gap 15 mmol/L (8-16); Aspartate Amino Transferase 58 U/L (17-59); Bilirubin,Total 0.7 mg/dL (0.2-1.3); Blood Urea Nitrogen 9 mg/dL (9-20); Calcium 8.7 mg/dL (8.4-10.2); Carbon Dioxide 26 mmol/L (22-30); Chloride 107 mmol/L (98-107); Cholesterol 221 mg/dL (0-200); Estimated Glomerular Filt Rate > 60; Glucose 90 mg/dL (65-110); Potassium 3.8 mmol/L (3.4-5.0); Sodium 148 mmol/L (137-145); Triglycerides 63 mg/dL (<150)
[2021-04-22 09:55] LABS: HDL Direct 112 mg/dL
[2021-04-22 09:56] LABS: Thyroid Stimulating Hormone 0.864 uIU/mL (0.465-4.680)
[2021-04-22 11:17] LABS: Hypochromasia 1+ (NORMAL); Platelet Estimate Decreased (Adequate); Poikilocytosis 1+ (NORMAL)
[2021-04-26 12:33] LABS: Vitamin D 1,25 (OH)2 Total 29 pg/mL (18-72); Vitamin D2 1,25 (OH)2 <8 pg/mL; Vitamin D3 1,25 (OH)2 29 pg/mL
[2021-04-26 13:18] LABS: Homocysteine 35.9 umol/L (<11.4)
== END 2021-04-22 08:09 | disposition home or self-care (01) ==
PROVIDERS: PCP Internal Medicine; Visit Provider Internal Medicine
DX: D64.9 Anemia, unspecified (principal); I10 Essential (primary) hypertension; Z79.899 Other long term (current) drug therapy; E55.9 Vitamin D deficiency, unspecified; R79.89 Other specified abnormal findings of blood chemistry
CPT/HCPCS: 36415; 80053; 80061; 82248; 82652; 83036; 83090; 84439; 84443; 85025; 85055

== ENCOUNTER 2021-05-06 13:42 | Observation (INO) | payer BC, SELFPAY ==
[2021-05-06] VITALS (7 sets, daily range): BP systolic 109–143; BP diastolic 73–93; PULSE 97–130; RESP 16–18; TEMP 36.4; O2SAT 95–98; BMI 27.1
--- NOTE | ~2021-05-06 | XR_ITS ---
EXAMINATION: XR knee RT 2V DATE: 05/07/2021 09:27 INDICATION: Bilateral knee pain post fall TECHNIQUE: 1. AP and lateral views of the right knee were obtained. 2. AP and lateral views of the left knee were obtained. COMPARISON: None. FINDINGS: Alignment is normal at both knees. No fracture. There is mild joint space narrowing with small margin al osteophytes in the medial compartment of the right knee. Remaining joint spaces appear normal alth ough severity of joint space narrowing can be underestimated on nonweightbearing imaging. Prominent h eterotopic ossification at the distal aspect of the left patellar tendon which could be sequela of ol d trauma or childhood Oksana-Schlatter's disease. Soft tissues are otherwise unremarkable with no kne e joint effusions. IMPRESSION: 1. No acute osseous abnormality or joint effusion at either the left or right knees. 2. At least mild osteoarthritis in the medial compartment of the right knee. Reviewed, dictated and finalized at location A. IMPRESSION: 1. No acute osseous abnormality or joint effusion at either the left or right k nees. 2. At least mild osteoarthritis in the medial compartment of the right knee.
--- NOTE | ~2021-05-06 | CT_ITS ---
EXAMINATION: CT brain wo con DATE: 05/07/2021 09:20 INDICATION: Fall with head injury TECHNIQUE: Computed tomography (CT) of the head was performed without intravenous contrast. Sagittal and coronal reconstructions were performed. The mA was adjusted according to patient size. Iterative reconstruction technique was employed. The dose-length product was 605.33 mGy-cm. COMPARISON: head CT dated 11/12/2020 FINDINGS: No fracture. No acute intracranial hemorrhage, acute infarction or abnormal extra axial fluid collect ion. There is mild scattered white matter hypoattenuation consistent with chronic small vessel ischem ic disease. Symmetric prominence of the sulci consistent with mild age-appropriate diffuse cerebral v olume loss. Ventricles are normal and symmetric. No mass/mass effect. Changes of bilateral intraocula r lens replacement. The orbits and mastoid air cells are normal. Mucosal thickening the left sphenoid sinus. IMPRESSION: 1. No fracture or acute intracranial process. 2. Age-related changes including mild diffuse volume loss and mild scattered white matter hypoattenua tion consistent with chronic small vessel ischemic disease. Reviewed, dictated and finalized at location A. IMPRESSION: 1. No fracture or acute intracranial process. 2. Age-related changes including mild diffuse volume loss and mild scattered wh ite matter hypoattenuation consistent with chronic small vessel ischemic diseas e.
--- NOTE | ~2021-05-06 | XR_ITS ---
EXAMINATION: XR knee LT 2V DATE: 05/07/2021 09:27 INDICATION: Bilateral knee pain post fall TECHNIQUE: 1. AP and lateral views of the right knee were obtained. 2. AP and lateral views of the left knee were obtained. COMPARISON: None. FINDINGS: Alignment is normal at both knees. No fracture. There is mild joint space narrowing with small margin al osteophytes in the medial compartment of the right knee. Remaining joint spaces appear normal alth ough severity of joint space narrowing can be underestimated on nonweightbearing imaging. Prominent h eterotopic ossification at the distal aspect of the left patellar tendon which could be sequela of ol d trauma or childhood Oksana-Schlatter's disease. Soft tissues are otherwise unremarkable with no kne e joint effusions. IMPRESSION: 1. No acute osseous abnormality or joint effusion at either the left or right knees. 2. At least mild osteoarthritis in the medial compartment of the right knee. Reviewed, dictated and finalized at location A. IMPRESSION: 1. No acute osseous abnormality or joint effusion at either the left or right k nees. 2. At least mild osteoarthritis in the medial compartment of the right knee.
--- NOTE | 2021-05-06 13:51 | PC.NURSE ---
patient's 's phone number #[phone] (Tasha)
[2021-05-06 14:18] LABS: Basophils Percent Auto 0.2 % (0.2-1.2); Hemoglobin 9.7 g/dL (14.0-18.0); Immature Granulocyte Absolute 0.04 K/mm3 (0.00-0.031); Immature Granulocyte Percent A 0.4 % (0-0.5); Immature Platelet Fraction Pct 12.7 % (0.9-11.2); Lymphocytes Absolute Auto 0.44 K/mm3 (0.9-3.2); Lymphocytes Percent Auto 4.7 % (18.3-44.2); Mean Corpuscular HGB Conc 29.4 g/dl (32-36); Mean Corpuscular Hemoglobin 21.8 pg (26-34); Mean Corpuscular Volume 74.2 fl (80-100); Monocytes Absolute Auto 1.4 K/mm3 (0.1-0.6); Monocytes Percent Auto 14.5 % (2.6-8.5); Neutrophils Absolute Auto 7.6 K/mm3 (1.3-6.7); Neutrophils Percent Auto 80.2 % (45.5-73.1); Nucleated Red Blood Cells Perc 0.2 % (0.0-0.2); Platelet Count Result 43 k/mm3 (150-375); Red Blood Count 4.45 M/mm3 (4.6-6.20); Red Cell Distribution Width 23.9 % (11.5-14.5); White Blood Count 9.5 K/mm3 (4.5-10.0)
[2021-05-06 14:29] LABS: Alanine Aminotransferase 36 U/L (4-50); Albumin Level 4.8 g/dL (3.5-5.1); Alkaline Phosphatase 103 U/L (38-126); Anion Gap 21 mmol/L (8-16); Aspartate Amino Transferase 80 U/L (17-59); Bilirubin,Total 1.1 mg/dL (0.2-1.3); Blood Urea Nitrogen 9 mg/dL (9-20); Calcium 9.6 mg/dL (8.4-10.2); Carbon Dioxide 22 mmol/L (22-30); Chloride 93 mmol/L (98-107); Estimated CRCL calculation 85 ml/min; Estimated Glomerular Filt Rate > 60; Glucose 111 mg/dL (65-110); Lipase 112 U/L (23-300); Sodium 136 mmol/L (137-145)
--- NOTE | 2021-05-06 14:31 | ED.NAVMDI ---
HPI - Nausea/Vomiting/Diarrhea General Chief complaint: Nausea/Vomiting/Diarrhea Stated complaint: Vomiting, Alcohol Withdraw, Weakness Time Seen by Provider: 05/06/21 14:21 Source: patient Mode of arrival: ambulatory Limitations: no limitations History of Present Illness HPI Narrative: Patient is a 56-year-old male complaining of nausea vomiting, constant, nonbilious nonbloody, started 3 days ago after he stopped drinking alcohol 5 days ago. Patient states that he is going through withdrawals, described as constant vomiting, cannot keep anything down, and cannot sleep. Patient admits to drinking alcohol every day since 2018. Patient states that he tried to quit in the past and has had similar withdrawal symptoms. Patient denies any chest pain, shortness of breath, abdominal pain, diarrhea, fever or chills. Related Data Home Medications Medication Instructions Recorded Confirmed Thera M Plus (ferrous fumarat) 1 tablet PO DAILY 08/10/19 04/28/21 omega-3 fatty acids 1,000 mg 2,000 mg PO BID cap 02/23/20 04/28/21 capsule cyanocobalamin (vitamin B-12) 1,000 mcg PO DAILY 08/18/20 04/28/21 1,000 mcg tablet Allergies Allergy/AdvReac Type Severity Reaction Status Date / Time bee venom protein (honey bee) Allergy Severe Swelling Verified 04/28/21 11:15 Review of Systems Review of Systems: All systems reviewed & are unremarkable except as noted in HPI and below Constitutional: Constitutional: Denies body ache(s), Denies chills, Denies excessive sweating, Denies fatigue, Denies fever(s), Denies headache(s), Denies lethargy, Denies malaise, Denies weakness and Denies weight loss Eyes: Eyes: Denies blurry vision, Denies change in vision and Denies loss of vision ENT: Denies dizziness, Denies ear discharge, Denies headache(s), Denies lip swelling, Denies epistaxis, Denies nasal congestion, Denies neck pain, Denies throat swelling and Denies tongue swelling Cardiovascular: Cardiovascular: Denies chest pain, Denies chest pain at rest, Denies chest pain with activity, Denies diaphoresis, Denies rapid heart rate, Denies edema, Denies irregular heart rhythm, Denies lightheadedness, Denies palpitations, Denies dyspnea and Denies dyspnea on exertion Respiratory: Respiratory: Denies chest congestion, Denies cough, Denies hemoptysis, Denies dyspnea and Denies dyspnea on exertion Gastrointestinal: Gastrointestinal: Denies abdominal pain, Denies melena, Denies hematochezia, Denies diarrhea and Denies hematemesis Musculoskeletal: Musculoskeletal: Denies abnormal gait, Denies deformity, Denies joint swelling, Denies limited range of motion, Denies neck pain and Denies numbness Neurologic: Denies Abnormal speech present, Denies abnormal gait, Denies confusion, Denies dizziness, Denies headache(s), Denies focal weakness, Denies loss of vision, Denies numbness, Denies Other visual disturbances, Denies Sensory deficit (Neuro) and Denies weakness Psychiatric: Psychiatric: Denies confusion, Denies depression, Denies auditory hallucinations, Denies homicidal ideation and Denies suicidal ideation Endocrine: Endocrine: Denies cold intolerance, Denies excessive sweating, Denies fatigue, Denies heat intolerance and Denies palpitations Hematologic/Lymphatic: Hematologic/Lymphatic: Denies easy bleeding and Denies easy bruising Allergic/Immunologic: Allergic/Immunologic: Denies lip swelling, Denies throat swelling and Denies tongue swelling PMFSH Past Medical History Medical History Abdominal pain Acute hypokalemia Alcohol withdrawal Alcoholism Anorexia Anxiety BMI 27.0-27.9,adult BMI 28.0-28.9,adult BMI 31.0-31.9,adult BMI 32.0-32.9,adult BPH (benign prostatic hyperplasia) Cataract, right eye Cellulitis Cough Depression ARAUJO (dyspnea on exertion) Dog bite of extremity DVT prophylaxis Elevated homocysteine Encounter for preventive health examination Encounter for routine adult health examinat
[2021-05-06 14:44] LABS: Platelet Estimate Decreased (Adequate)
[2021-05-06 14:45] LABS: Hypochromasia 2+ (NORMAL); Ovalocytes 1+ (NORMAL); Target Cells 1+ (NORMAL)
[2021-05-06] MEDS: PANTOPRAZOLE SODIUM IV 40 MG VIAL IV PUSH ×2 (14:48→21:00)
[2021-05-06] MEDS: PROMETHAZINE HCL 25 MG/ML AMPUL 12.5 MG IV PUSH (14:48)
[2021-05-06] MEDS: THIAMINE HCL INJ 100 MG, FOLIC ACID INJ 1 MG, MULTIVITAMINS-12 INJ VIAL 1 5 ML, MULTIVI... 200 MG IV CONT (15:42)
[2021-05-06] MEDS: LORazepam INJ (*CRX) 2 MG/ML VIAL 1 MG IV PUSH (15:42)
[2021-05-06] MEDS: KCL 20 MEQ/SW 100 ML 100 ML 50 MEQ IVPB (16:18)
[2021-05-06 17:42] LABS: Add Urine Microscopic? YES; Appearance Urine Clear (Clear); Bilirubin Urine Negative (Negative); Blood Urine Negative (Negative); Color Urine Yellow (Yellow); Glucose Urine UA Negative (Negative); Ketones Urine 2+ mg/dL (Negative); Leukocyte Esterase Ur Negative LEU/UL (Negative); Mucus Urine Rare /lpf; Nitrate Urine Negative (Negative); Protein Urine 3+ mg/dL (Negative); RBC Urine 0-2 /hpf (0-2); Specific Grav Ur 1.018 (1.001-1.035); Urobilinogen Urine Negative mg/dL (<2.0); WBC Urine 0-3 /hpf
--- NOTE | 2021-05-06 18:30 | PM.IMHP ---
H&P: HPI History of Present Illness Date/Time: 05/06/21 18:30 Chief Complaint: Weakness, nausea, vomiting, concerns for alcohol withdrawal. Narrative: This is a 56-year-old male with history of gastritis, gastroesophageal reflux disease, alcohol abuse with history of alcohol withdrawal and alcohol withdrawal seizures, and hypertension who presented to the emergency department earlier today from home with complaints of weakness, nausea, vomiting and with concerns for alcohol withdrawal. He admits to a longstanding history of alcohol abuse with periods of sobriety, though he has been drinking daily for the last several years. On a typical day he will consume about half of a fifth of vodka but decided sometime last week that he was going to try and quit, with his last typical drink being 3 days ago on SundayMay 03. Since that time he reports ongoing nausea, heartburn, and vomiting with progressive weakness due to poor oral intake. Yesterday he was quite shaky and to prevent severe withdrawal symptoms he had a small mixed drink though that did not seem to help much. He goes on to say that he frequently has nausea and vomiting upon waking in the mornings, and this is not necessarily a new symptom for him this week. With further questioning he does report having previously been on pantoprazole and sucralfate, which she believes helped his symptoms immensely. As mentioned did above he does have a history of gastritis as well as esophagitis and duodenitis noted on endoscopy on 03/04/2021. At that time he was discharged with a prescription for sucralfate though he ran out of that and his symptoms seem to have gotten worse since. At the time my evaluation he continues to feel nauseated. He received Ativan not long prior to my arrival to the room for mild alcohol withdrawal symptoms and shakes, and he seems much more comfortable. He denies fever, sweats, hematemesis, melena, hematochezia, epigastric pain, abdominal pain, chest pain, shortness of breath, sweats, confusion, and hallucinations. Review of Systems Review of Systems: Twelve systems were reviewed with pertinent positives and negatives as per HPI. No fever or sweats. He has been feeling a bit lightheaded but no syncope or near syncope. He reports that he is cold quite frequently. No recent cold or flu symptoms. No known exposure to those positive for COVID 19. Denies dysphagia. Except as documented, all other systems were reviewed and are negative. [facility] Past Medical History Medical History (Updated 05/06/21 @ 19:54 by Sigrid Silverio PA-C) Alcohol withdrawal seizure Alcoholism Anxiety Benign prostatic hyperplasia Depression Eczema Gastroesophageal reflux disease GI bleed Related to gastritis and esophageal ulcer. Hiatal hernia History of Clostridium difficile colitis Hypertension Iron deficiency anemia Pancytopenia May very well be related to alcohol abuse. Evaluated by Hematology in the past with no plans for bone marrow biopsy at this time. Peripheral neuropathy Peripheral neuropathy Vitamin D deficiency Surgical History Surgical History (Updated 05/06/21 @ 19:50 by Sigrid Silverio PA-C) History of bilateral cataract extraction History of colonoscopy History of esophagogastroduodenoscopy (EGD) (03/04/21) EGD per Dr. Christian showed reflux esophagitis, hiatal hernia, gastritis, duodenitis. Family History Family History Mother Family history of mental disorder Family history of lung cancer Father Family history of chronic obstructive pulmonary disease Malignant neoplasm of prostate Other Family history of cardiovascular disease Family history of hypercholesterolemia Hypertension Social History Social History (Updated 05/06/21 @ 19:51 by Sigrid Silverio PA-C) Social History: The patient lives in his own home in [place]. He has 2 grown children. Former smoker. Longstanding history of alcoholism, c
--- NOTE | 2021-05-06 20:23 | ADMGEN ---
This patient, Jones Painting, was admitted to IMU Room 205-01. Patient/family oriented to hospital policies and general routines including ID bracelet, bed and alarms, visiting hours, pain management, procedures, bathroom and other care routines, personal items, smoking policy, room service/diet, and visiting hours. Information on how to activate the Rapid Response Team has been discussed. Patient/Family are encouraged to report perceived risks to care and to ask questions if they do not understand what they are told or what they should do.
[2021-05-06] MEDS: SUCRALFATE SUSP 100 MG/ML 10 ML UDC 1000 MG PO (20:58)
[2021-05-06] MEDS: chlordiazePOXIDE (*CRX) 25 MG CAPSULE PO (21:01)
[2021-05-06 21:11] LABS: Anion Gap 11 mmol/L (8-16); Blood Urea Nitrogen 7 mg/dL (9-20); Calcium 9.1 mg/dL (8.4-10.2); Carbon Dioxide 27 mmol/L (22-30); Chloride 96 mmol/L (98-107); Estimated CRCL calculation 85 ml/min; Estimated Glomerular Filt Rate > 60; Glucose 85 mg/dL (65-110); Magnesium 1.8 mg/dL (1.6-2.3); Sodium 134 mmol/L (137-145)
[2021-05-06] MEDS: SODIUM CHLORIDE 0.9% IV 1,000 ML 100 ML IV CONT (21:17)
[2021-05-07] VITALS (17 sets, daily range): BP systolic 125–151; BP diastolic 70–95; PULSE 76–141; RESP 16–24; TEMP 36–37.6; O2SAT 96–100; BMI 27.1
[2021-05-07 00:22] LABS: Glucose Point of Care 81 mg/dl (65-105)
[2021-05-07] MEDS: chlordiazePOXIDE (*CRX) 25 MG CAPSULE PO ×4 (01:28→13:42)
[2021-05-07] MEDS: SUCRALFATE SUSP 100 MG/ML 10 ML UDC 1000 MG PO ×4 (06:02→20:55)
[2021-05-07 06:42] LABS: Hematocrit 28.2 % (42.0-52.0); Hemoglobin 8.3 g/dL (14.0-18.0); Immature Platelet Fraction Pct 14.4 % (0.9-11.2); Mean Corpuscular HGB Conc 29.4 g/dl (32-36); Mean Corpuscular Hemoglobin 21.5 pg (26-34); Mean Corpuscular Volume 73.1 fl (80-100); Platelet Count Result 44 k/mm3 (150-375); Red Blood Count 3.86 M/mm3 (4.6-6.20); Red Cell Distribution Width 23.7 % (11.5-14.5); White Blood Count 9.5 K/mm3 (4.5-10.0)
[2021-05-07 06:55] LABS: Alanine Aminotransferase 28 U/L (4-50); Albumin Level 3.9 g/dL (3.5-5.1); Alkaline Phosphatase 79 U/L (38-126); Anion Gap 12 mmol/L (8-16); Aspartate Amino Transferase 64 U/L (17-59); Blood Urea Nitrogen 6 mg/dL (9-20); Calcium 8.7 mg/dL (8.4-10.2); Carbon Dioxide 22 mmol/L (22-30); Chloride 97 mmol/L (98-107); Estimated CRCL calculation 96 ml/min; Estimated Glomerular Filt Rate > 60; Glucose 83 mg/dL (65-110); Magnesium 1.7 mg/dL (1.6-2.3); Potassium 3.2 mmol/L (3.4-5.0); Sodium 131 mmol/L (137-145)
[2021-05-07 08:00] LABS: Glucose Point of Care 103 mg/dl (65-105)
[2021-05-07] MEDS: FOLIC ACID 1 MG TABLET PO (08:43)
[2021-05-07] MEDS: THIAMINE HCL 100 MG TABLET PO (08:43)
[2021-05-07] MEDS: PANTOPRAZOLE SODIUM IV 40 MG VIAL IV PUSH (08:43)
[2021-05-07] MEDS: THERAPEUTIC MULTIVITAMINS/MINERALS TAB (*BKC) 1 TABLET PO (08:43)
--- NOTE | 2021-05-07 10:30 | PM.IMPN ---
Progress Note: A&P Assessment and Plan (1) Alcohol withdrawal: Qualifiers: Complication of substance-induced condition: with perceptual disturbance Qualified Code(s): F10.232 - Alcohol dependence with withdrawal with perceptual disturbance Code(s): F10.239 - Alcohol dependence with withdrawal, unspecified Status: Acute Assessment and Plan: Last drink was 9/3 1 pm Already having some signs of alcohol withdrawal with tremors, anxiety and tachycardia He has history of alcohol withdrawal seizures Continue CIWA Continue IV Ativan p.r.n. Schedule Librium 25 mg q.6 hours and titrate as needed Continue thiamine and folic acid supplementation. (2) Dehydration: Code(s): E86.0 - Dehydration Status: Acute Assessment and Plan: Secondary to poor oral intake and ongoing vomiting. Improved with IV hydration. (3) Hypokalemia: Code(s): E87.6 - Hypokalemia Status: Acute Assessment and Plan: Replaced. (4) Pancytopenia: Code(s): D61.818 - Other pancytopenia Status: Acute Assessment and Plan: In the setting of alcohol abuse. Chronic as far back as 2018. Was seen by Oncology during a hospital stay on 03/03, workup noted. Thought to be due to ethanol use. Plan was for outpatient follow-up which did not seem like it happened. There was consideration bone marrow biopsy an outpatient. (5) Iron deficiency anemia: Code(s): D50.9 - Iron deficiency anemia, unspecified Status: Acute Assessment and Plan: Hemoglobin and hematocrit are stable. Continue iron supplementation. (6) Gastroesophageal reflux disease: Code(s): K21.9 - Gastro-esophageal reflux disease without esophagitis Status: Acute Assessment and Plan: Pantoprazole daily (7) Gastritis: Code(s): K29.70 - Gastritis, unspecified, without bleeding Status: Acute Assessment and Plan: Pantoprazole daily Also on sucralfate and home Additional Plan Code status: Full code DVT prophylaxis: SCDs given low platelets Subjective Date/time seen: 05/07/21 10:30 He had an unwitnessed fall this morning. When the nurse went in to see him he was on his knees. Through the night he was tachycardic. He reports he got out of bed felt unsteady and lowered himself to the floor. Unclear if he hit his head but did hit his knees. Systolic blood pressure 130s this morning. Heart rate 100-120s. Regular. He otherwise denies any new issues. Review of Systems Review of Systems: All systems reviewed & are unremarkable except as noted in HPI and below Exam Narrative: Gen: Alert, NAD Abd: Soft, NT, ND Heart: RRR Lungs: CTAB Ext: No lower extremity edema Objective Data Vital Signs Vital Signs: Vital Signs - 24 hr 05/06/21 13:45 05/06/21 16:41 05/06/21 19:35 Temperature Pulse Rate 130 H 97 97 Respiratory Rate 18 18 16 Blood Pressure 129/92 H 109/77 113/73 Pulse Oximetry 98 95 96 05/06/21 20:05 05/06/21 21:38 05/06/21 21:39 Temperature 97.6 F Pulse Rate 101 H Respiratory Rate 18 Blood Pressure 143/93 H 141/82 H 112/79 Pulse Oximetry 97 05/06/21 22:00 05/07/21 00:00 05/07/21 02:00 Temperature 97.6 F Pulse Rate 108 H 107 H 109 H Respiratory Rate 18 Blood Pressure 125/70 Pulse Oximetry 98 05/07/21 04:00 05/07/21 06:00 05/07/21 07:10 Temperature 97.8 F 99.6 F Pulse Rate 103 H 108 H 122 H Respiratory Rate 18 24 H Blood Pressure 139/80 137/92 H Pulse Oximetry 99 96 05/07/21 08:00 Temperature 99.6 F Pulse Rate 124 H Respiratory Rate 20 Blood Pressure 137/92 H Pulse Oximetry 96 Intake/Output Intake/Output: Intake & Output 05/04/21 05/05/21 05/06/21 05/07/21 23:59 23:59 23:59 23:59 Intake Total 220 480 Output Total 350 Balance 220 130 Meds/Results Medications: Active Medications Generic Name Dose Route Start Last Admin Trade Name Freq PRN Radha
[2021-05-07 11:59] LABS: Glucose Point of Care 88 mg/dl (65-105)
[2021-05-07] MEDS: POTASSIUM CHLORIDE 20 MEQ TABLET.ER 40 MEQ PO ×2 (11:59→16:32)
[2021-05-07] MEDS: LORazepam INJ (*CRX) 2 MG/ML VIAL 1 MG IV PUSH ×3 (12:01→16:32)
[2021-05-07] MEDS: SODIUM CHLORIDE 0.9% IV 1,000 ML 100 ML IV CONT ×2 (13:43→23:35)
[2021-05-07] MEDS: METOPROLOL TARTRATE INJ 5 MG/5 ML VIAL IV PUSH (16:31)
[2021-05-07 16:34] LABS: Glucose Point of Care 97 mg/dl (65-105)
[2021-05-07] MEDS: chlordiazePOXIDE (*CRX) 25 MG CAPSULE 50 MG PO ×2 (17:31→23:34)
[2021-05-07] MEDS: METOPROLOL TARTRATE 12.5 MG TABLET PO (20:55)
[2021-05-07 23:00] LABS: Glucose Point of Care 86 mg/dl (65-105)
[2021-05-08] VITALS (14 sets, daily range): BP systolic 120–148; BP diastolic 81–96; PULSE 73–126; RESP 12–20; TEMP 36.4–37.7; O2SAT 97–100
[2021-05-08] MEDS: SUCRALFATE SUSP 100 MG/ML 10 ML UDC 1000 MG PO ×4 (05:34→20:00)
[2021-05-08] MEDS: chlordiazePOXIDE (*CRX) 25 MG CAPSULE 50 MG PO ×2 (05:34→11:57)
[2021-05-08 05:59] LABS: Basophils Percent Auto 0.5 % (0.2-1.2); Eosinophils Absolute Auto 0.1 K/mm3 (0-0.3); Eosinophils Percent Auto 1.5 % (0-4.4); Hematocrit 32.5 % (42.0-52.0); Hemoglobin 9.2 g/dL (14.0-18.0); Immature Granulocyte Absolute 0.04 K/mm3 (0.00-0.031); Immature Granulocyte Percent A 0.5 % (0-0.5); Immature Platelet Fraction Pct 14.6 % (0.9-11.2); Lymphocytes Absolute Auto 1.06 K/mm3 (0.9-3.2); Lymphocytes Percent Auto 14.5 % (18.3-44.2); Mean Corpuscular HGB Conc 28.3 g/dl (32-36); Mean Corpuscular Hemoglobin 21.8 pg (26-34); Monocytes Absolute Auto 0.9 K/mm3 (0.1-0.6); Monocytes Percent Auto 11.6 % (2.6-8.5); Neutrophils Absolute Auto 5.2 K/mm3 (1.3-6.7); Neutrophils Percent Auto 71.4 % (45.5-73.1); Platelet Count Result 66 k/mm3 (150-375); Red Blood Count 4.22 M/mm3 (4.6-6.20); Red Cell Distribution Width 23.7 % (11.5-14.5); White Blood Count 7.3 K/mm3 (4.5-10.0)
[2021-05-08 06:08] LABS: Anion Gap 10 mmol/L (8-16); Blood Urea Nitrogen 5 mg/dL (9-20); Calcium 8.7 mg/dL (8.4-10.2); Carbon Dioxide 26 mmol/L (22-30); Chloride 100 mmol/L (98-107); Estimated CRCL calculation 96 ml/min; Estimated Glomerular Filt Rate > 60; Glucose 77 mg/dL (65-110); Potassium 3.3 mmol/L (3.4-5.0); Sodium 136 mmol/L (137-145)
--- NOTE | 2021-05-08 07:06 | PC.NURSE ---
05/07/21 0700: Patient fall at this time. See incident report.
[2021-05-08] MEDS: THIAMINE HCL 100 MG TABLET PO (08:24)
[2021-05-08] MEDS: PANTOPRAZOLE 40 MG TABLET PO (08:24)
[2021-05-08] MEDS: FOLIC ACID 1 MG TABLET PO (08:25)
[2021-05-08] MEDS: POTASSIUM CHLORIDE 20 MEQ TABLET.ER 40 MEQ PO ×2 (08:25→17:00)
[2021-05-08] MEDS: THERAPEUTIC MULTIVITAMINS/MINERALS TAB (*BKC) 1 TABLET PO (08:25)
[2021-05-08] MEDS: METOPROLOL TARTRATE 12.5 MG TABLET PO ×2 (08:25→20:00)
--- NOTE | 2021-05-08 09:10 | PM.IMPN ---
Progress Note: A&P Assessment and Plan (1) Alcohol withdrawal: Qualifiers: Complication of substance-induced condition: with perceptual disturbance Qualified Code(s): F10.232 - Alcohol dependence with withdrawal with perceptual disturbance Code(s): F10.239 - Alcohol dependence with withdrawal, unspecified Status: Acute Assessment and Plan: This is a 56-year-old gentleman with past medical history of alcohol dependence, alcohol withdrawal along with alcohol withdrawal seizures, hypertension, GERD, gastritis/esophagitis/ duodenitis (EGD 03/04/21), who presented to the emergency department on 05/06 from home with concerns about weakness, nausea, vomiting and alcohol withdrawal. His last drink was initially reported as 3 days prior to his presentation, then he reported that had a small drink on the day of presentation. his initial blood work showed hemoglobin 9.7, WBC 9.5, platelets 43, sodium 136, potassium 3, chloride 93, bicarb 22, anion gap 21, creatinine 0.8, AST 80, ALT 36, bilirubin 1.1. He was admitted to the intermediate medical unit, and monitor closely for withdrawal using CIWA. He initially required Ativan IV, along with chlordiazepoxide, he had some mild visual hallucinations along with tremor, however this subsided with treatment and he gradually improved. He was given thiamine and folic acid supplementation. He was hydrated intravenously. His low blood counts were noted to be in the setting of chronic alcohol abuse. Previously seen by Oncology with recommendation of outpatient follow-up for further evaluation. His counts were stable during his hospital stay. His pantoprazole and sucralfate were continued for his known gastritis/duodenitis. Maintaining alcohol abstinence was discussed with him at length. He was visited by our care program director and alcohol detox resources were offered but he declined. He has had inpatient alcohol rehab treatment last year. Last drink was 05/06 1 pm Already having some signs of alcohol withdrawal with tremors, anxiety and tachycardia, now much improved He has history of alcohol withdrawal seizures Continue CIWA Continue IV Ativan p.r.n. Schedule Librium 50 mg q.6 hours and titrate as needed Continue thiamine and folic acid supplementation. (2) Dehydration: Code(s): E86.0 - Dehydration Status: Acute Assessment and Plan: Secondary to poor oral intake and ongoing vomiting. Improved with IV hydration. (3) Hypokalemia: Code(s): E87.6 - Hypokalemia Status: Acute Assessment and Plan: Monitor and replace. (4) Pancytopenia: Code(s): D61.818 - Other pancytopenia Status: Acute Assessment and Plan: In the setting of alcohol abuse. Chronic as far back as 2019. Was seen by Oncology during a hospital stay on 03/03, workup noted. Thought to be due to ethanol use. Plan was for outpatient follow-up which did not seem like it happened. There was consideration bone marrow biopsy an outpatient. (5) Iron deficiency anemia: Code(s): D50.9 - Iron deficiency anemia, unspecified Status: Acute Assessment and Plan: Hemoglobin and hematocrit are stable. Continue iron supplementation. (6) Gastroesophageal reflux disease: Code(s): K21.9 - Gastro-esophageal reflux disease without esophagitis Status: Acute Assessment and Plan: Pantoprazole daily (7) Gastritis: Code(s): K29.70 - Gastritis, unspecified, without bleeding Status: Acute Assessment and Plan: Pantoprazole daily Also on sucralfate and home Additional Plan Code status: Full code DVT prophylaxis: SCDs Subjective Date/time seen: 05/08/21 09:10 Fairly smooth night. Did not require any Ativan. Heart rate much improved. He feels better today. Review of Systems Review of Systems: All systems reviewed & are unremarkable except as noted in HPI and below Exam Narrativ
[2021-05-08] MEDS: SODIUM CHLORIDE 0.9% IV 1,000 ML 100 ML IV CONT (09:40)
[2021-05-08 11:42] LABS: Glucose Point of Care 122 mg/dl (65-105)
[2021-05-08] MEDS: chlordiazePOXIDE (*CRX) 25 MG CAPSULE PO ×2 (17:00→23:09)
[2021-05-08 23:03] LABS: Glucose Point of Care 121 mg/dl (65-105)
[2021-05-09] VITALS: BP 131/95; PULSE 96; RESP 20; TEMP 36.3; O2SAT 98
[2021-05-09] MEDS: SUCRALFATE SUSP 100 MG/ML 10 ML UDC 1000 MG PO ×2 (05:16→13:03)
[2021-05-09] MEDS: chlordiazePOXIDE (*CRX) 25 MG CAPSULE PO ×2 (05:16→13:03)
[2021-05-09 08:00] VITALS: BP 138/82; PULSE 102; RESP 14; TEMP 36.8; O2SAT 97
[2021-05-09] MEDS: FOLIC ACID 1 MG TABLET PO (08:24)
[2021-05-09] MEDS: THIAMINE HCL 100 MG TABLET PO (08:24)
[2021-05-09] MEDS: THERAPEUTIC MULTIVITAMINS/MINERALS TAB (*BKC) 1 TABLET PO (08:24)
[2021-05-09] MEDS: METOPROLOL TARTRATE 12.5 MG TABLET PO (08:24)
[2021-05-09] MEDS: PANTOPRAZOLE 40 MG TABLET PO (08:24)
--- NOTE | 2021-05-09 10:38 | PM.DS ---
DS: Admitting Diagnosis Admitting Diagnosis Nausea, vomiting, alcohol withdrawal DS: Discharge Diagnosis Discharge Diagnosis (1) Alcohol withdrawal: Qualifiers: Complication of substance-induced condition: with perceptual disturbance Qualified Code(s): F10.232 - Alcohol dependence with withdrawal with perceptual disturbance Code(s): F10.239 - Alcohol dependence with withdrawal, unspecified Status: Acute Assessment and Plan: Last drink was 9/3 1 pm Already having some signs of alcohol withdrawal with tremors, anxiety and tachycardia, now symptoms resolved. He has history of alcohol withdrawal seizures CIWA Schedule Librium 50 mg q.6 hours, now tapered Continue thiamine and folic acid supplementation. (2) Dehydration: Code(s): E86.0 - Dehydration Status: Acute Assessment and Plan: Secondary to poor oral intake and ongoing vomiting. Improved with IV hydration. (3) Hypokalemia: Code(s): E87.6 - Hypokalemia Status: Acute Assessment and Plan: Replaced. (4) Pancytopenia: Code(s): D61.818 - Other pancytopenia Status: Acute Assessment and Plan: In the setting of alcohol abuse. Chronic as far back as 2019. Was seen by Oncology during a hospital stay on 03/03, workup noted. Thought to be due to ethanol use. Plan was for outpatient follow-up which did not seem like it happened. There was consideration bone marrow biopsy an outpatient. (5) Iron deficiency anemia: Code(s): D50.9 - Iron deficiency anemia, unspecified Status: Acute Assessment and Plan: Hemoglobin and hematocrit are stable. Continue iron supplementation. (6) Gastroesophageal reflux disease: Code(s): K21.9 - Gastro-esophageal reflux disease without esophagitis Status: Acute Assessment and Plan: Pantoprazole daily (7) Gastritis: Code(s): K29.70 - Gastritis, unspecified, without bleeding Status: Acute Assessment and Plan: Pantoprazole daily Also on sucralfate and home DS: Summary Hospital Course Hospital Course: This is a 56-year-old gentleman with past medical history of alcohol dependence, alcohol withdrawal along with alcohol withdrawal seizures, hypertension, GERD, gastritis/esophagitis/ duodenitis (EGD 03/04/21), who presented to the emergency department on 05/06 from home with concerns about weakness, nausea, vomiting and alcohol withdrawal. His last drink was initially reported as 3 days prior to his presentation, then he reported that had a small drink on the day of presentation. His initial blood work showed hemoglobin 9.7, WBC 9.5, platelets 43, sodium 136, potassium 3, chloride 93, bicarb 22, anion gap 21, creatinine 0.8, AST 80, ALT 36, bilirubin 1.1. He was admitted to the intermediate medical unit, and monitor closely for withdrawal using CIWA. He initially required Ativan IV, along with chlordiazepoxide, he had some mild visual hallucinations along with tremor, however this subsided with treatment and he gradually improved. He was given thiamine and folic acid supplementation. He was hydrated intravenously. His low blood counts were noted to be in the setting of chronic alcohol abuse. Previously seen by Oncology with recommendation of outpatient follow-up for further evaluation. His counts were stable during his hospital stay. His pantoprazole and sucralfate were continued for his known gastritis/duodenitis. Maintaining alcohol abstinence was discussed with him at length. He was visited by our foster care social worker and alcohol detox resources were offered but he declined. He has had inpatient alcohol rehab treatment last year. He was visited by Physical therapy, no noted balance issues and noted he requires physical assist, this improved when using a walker, I discussed with him length short-term rehab. He is adamant about wanting to go home with the help of his significant other, Yancy
[2021-05-09 11:44] LABS: Glucose Point of Care 127 mg/dl (65-105)
--- NOTE | 2021-05-09 13:01 | PC.NURSE ---
Pt upset about chair alarm stating that we bugged his room so we know when he gets up. This nurse repeatedly encouraged and requested that patient used his call light throughout the day. Pt got up several times without using the call light causing either the bed alarm or chair alarm to go off. It was explained that he is a fall risk due to being unsteady and previous falls during this hospital visit.
[2021-05-09] MEDS: METOPROLOL TARTRATE 25 MG TABLET PO (13:03)
== END 2021-05-09 13:11 | disposition home or self-care (01) ==
LOC: ANHED 17:14 → ANHIMU 05-07 07:06
PROVIDERS: Physician Assistant; Admitting Provider Internal Medicine; Emergency Provider Emergency Medicine; PCP Internal Medicine; Visit Provider Internal Medicine Nephrology
DX: F10.232 Alcohol dependence with withdrawal with perceptual disturbance (principal); E86.0 Dehydration; E87.6 Hypokalemia; D61.818 Other pancytopenia; D50.9 Iron deficiency anemia, unspecified; K29.70 Gastritis, unspecified, without bleeding; K21.9 Gastro-esophageal reflux disease without esophagitis; I10 Essential (primary) hypertension
CPT/HCPCS: 36415; 70450; 73560; 80048; 80053; 81001; 82948; 83690; 83735; 84443; 85025; 85027; 85055; 96361; 96365; 96366; 96375; 96376; 97162; 99285; A9270; C9113; G0378; J2060; J2550; J3411; J3480; J7030; J7120

== ENCOUNTER 2021-05-13 10:37 | Outpatient (CLI) | payer BC, SELFPAY ==
[2021-05-13 11:22] LABS: Basophils Absolute Auto 0.1 K/mm3 (0.0-0.1); Basophils Percent Auto 1.2 % (0.2-1.2); Eosinophils Absolute Auto 0.2 K/mm3 (0-0.3); Eosinophils Percent Auto 2.4 % (0-4.4); Hematocrit 32.9 % (42.0-52.0); Hemoglobin 9.1 g/dL (14.0-18.0); Immature Granulocyte Percent A 1.1 % (0-0.5); Lymphocytes Absolute Auto 1.31 K/mm3 (0.9-3.2); Lymphocytes Percent Auto 14.5 % (18.3-44.2); Mean Corpuscular HGB Conc 27.7 g/dl (32-36); Mean Corpuscular Hemoglobin 21.9 pg (26-34); Mean Corpuscular Volume 79.3 fl (80-100); Mean Platelet Volume 9.9 fl (7.4-10.4); Monocytes Absolute Auto 2.1 K/mm3 (0.1-0.6); Monocytes Percent Auto 23.6 % (2.6-8.5); Neutrophils Absolute Auto 5.2 K/mm3 (1.3-6.7); Neutrophils Percent Auto 57.2 % (45.5-73.1); Platelet Count Result 338 k/mm3 (150-375); Red Blood Count 4.15 M/mm3 (4.6-6.20)
[2021-05-13 11:45] LABS: Anion Gap 4 mmol/L (8-16); Blood Urea Nitrogen 12 mg/dL (9-20); Calcium 10.5 mg/dL (8.4-10.2); Carbon Dioxide 29 mmol/L (22-30); Chloride 107 mmol/L (98-107); Estimated Glomerular Filt Rate > 60; Glucose 110 mg/dL (65-110); Sodium 140 mmol/L (137-145)
== END 2021-05-13 10:38 | disposition home or self-care (01) ==
PROVIDERS: PCP Internal Medicine; Visit Provider Internal Medicine
DX: I10 Essential (primary) hypertension (principal)
CPT/HCPCS: 36415; 80048; 85025

== ENCOUNTER 2021-06-27 03:13 | Day surgery (SDC) | payer BC, SELFPAY ==
[2021-06-16 11:37] VITALS: BMI 26.6
[2021-06-27] MEDS: LACTATED RINGERS 1,000 ML 150 ML IV CONT (07:05)
[2021-06-27 07:08] VITALS: BP 122/88; PULSE 105; RESP 18; TEMP 36; O2SAT 98; BMI 27.5
--- NOTE | 2021-06-27 07:43 | WPDANESEPPF ---
Anes - Initial Pre Proc Eval Procedure: Operation Date: 06/27/21 08:15 Proposed Procedures p Esophagogastroduodenoscopy - Ish Sarabia MD Date/Time: 06/27/21 07:43 Surgeon: Ish Sarabia MD Pre Op Diagnosis: erosive esophagitis Patient Data Age: 56 Gender: M Height: 1.73 m Weight: 82.2 kg Last Vital Signs Temp 96.8 F L 06/27/21 07:08 Pulse 105 H 06/27/21 07:08 Resp 18 06/27/21 07:08 BP 122/88 06/27/21 07:08 Pulse Ox 98 06/27/21 07:08 Allergies Allergy/AdvReac Type Severity Reaction Status Date / Time bee venom protein (honey bee) Allergy Severe Swelling Verified 06/27/21 07:06 Home Medications Medication Instructions Recorded Confirmed Type gabapentin 300 mg capsule 300 mg PO .at bedtime #90 cap 02/23/20 06/16/21 Rx omega-3 fatty acids 1,000 mg 2,000 mg PO BID cap 02/23/20 06/16/21 History capsule folic acid 1 mg tablet 1 mg PO QAM #90 tablet 06/23/20 06/16/21 Rx pantoprazole 40 mg tablet,delayed 40 mg PO Q12H #180 tablet 06/23/20 06/16/21 Rx release thiamine HCl (vitamin B1) 100 mg 100 mg PO QAM #90 tablet 06/23/20 06/16/21 Rx tablet doxepin 50 mg capsule 50 mg PO .COMPLEX PRN #30 cap 11/24/20 06/16/21 Rx fluoxetine 20 mg capsule 20 mg PO DAILY #30 cap 11/25/20 06/16/21 Rx rosuvastatin 20 mg tablet 20 mg PO DAILY #30 tablet 12/08/20 06/16/21 Rx ferrous sulfate 325 mg (65 mg 325 mg PO BID #60 tablet 03/17/21 06/16/21 Rx iron) tablet,delayed release sucralfate 100 mg/mL oral 1,000 mg PO ACHS #420 ml 05/10/21 06/16/21 Rx suspension cyanocobalamin (vitamin B-12) 2,000 mcg PO DAILY tablet 05/16/21 06/16/21 History 1,000 mcg tablet Patient hx anesthesia problems: none Family hx anesthesia problems: none Results Review: All pre-operative results and documents have been reviewed as part of the pre-operative evaluation. [facility] Past Medical History Medical History (Updated 05/16/21 @ 11:49 by Kimberlee Goodwin [facility]) Alcohol withdrawal seizure Alcoholism Anxiety Benign prostatic hyperplasia Depression Eczema Follow up Gastroesophageal reflux disease GI bleed Related to gastritis and esophageal ulcer. Hiatal hernia History of Clostridium difficile colitis Hospital discharge follow-up Hypertension Iron deficiency anemia Pancytopenia May very well be related to alcohol abuse. Evaluated by Hematology in the past with no plans for bone marrow biopsy at this time. Peripheral neuropathy Peripheral neuropathy Vitamin D deficiency Surgical History Surgical History History of bilateral cataract extraction History of colonoscopy History of esophagogastroduodenoscopy (EGD) (03/04/21) EGD per Dr. Christian showed reflux esophagitis, hiatal hernia, gastritis, duodenitis. Family History Family History Mother Family history of lung cancer Family history of mental disorder Father Malignant neoplasm of prostate Family history of chronic obstructive pulmonary disease Family history of lung cancer Sibling Hypertension Family history of hypercholesterolemia Alcoholism Other Family history of cardiovascular disease Social History Social History Social History: The patient lives in his own home in [place]. He has 2 grown children. Former smoker. Longstanding history of alcoholism, consuming half of a fifth of vodka most days. Denies illicit substance use. 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 He does ni[employer]ancy keys, as his surrogate decision maker. Code status: Full code. Smoking packs per day: 0.5 Smoking cigarettes per day: 10.0 Years smoked: 16 Smoking pack-years: 8.00 Smoking status: Former smoker Tobacco type: cigarettes Additional smoking assessment comments: social smoker Alcohol intake: current Drinks per week: 35 Alcohol use de
--- NOTE | 2021-06-27 08:07 | PM.HPGS ---
History of Present Illness History of Present Illness Consent: Risks, benefits, and alternatives have been discussed and questions answered. Patient agrees to proceed with procedure. Chief complaint: erosive esophagitis Narrative: [employer] Pain[employer] is a 56 year old male with severe erosive esophagitis few months ago, now on ppi Review of Systems Constitutional: Constitutional: Denies headache(s) and Denies weakness Eyes: Eyes: Denies blurry vision ENT: Reports Normal hearing present, Denies headache(s) and Denies neck pain Cardiovascular: Cardiovascular: Denies chest pain and Denies dyspnea Respiratory: Respiratory: Denies dyspnea Gastrointestinal: Gastrointestinal: Reports no additional gastrointestinal complaints Genitourinary: Genitourinary: Denies dysuria Musculoskeletal: Musculoskeletal: Denies neck pain Integumentary/Breasts: Skin/Breast: Denies dry skin Neurologic: Reports Normal hearing present, Denies headache(s) and Denies weakness Psychiatric: Psychiatric: Denies anxiety Endocrine: Endocrine: Denies change in body appearance Hematologic/Lymphatic: Hematologic/Lymphatic: Denies easy bleeding Allergic/Immunologic: Allergic/Immunologic: Denies urticaria PMF Past Medical History Medical History (Updated 06/27/21 @ 08:08 by Ish Sarabia MD) Alcohol withdrawal seizure Alcoholism Anxiety Benign prostatic hyperplasia Depression Eczema Erosive esophagitis Follow up Gastroesophageal reflux disease GI bleed Related to gastritis and esophageal ulcer. Hiatal hernia History of Clostridium difficile colitis Hospital discharge follow-up Hypertension Iron deficiency anemia Pancytopenia May very well be related to alcohol abuse. Evaluated by Hematology in the past with no plans for bone marrow biopsy at this time. Peripheral neuropathy Peripheral neuropathy Vitamin D deficiency Surgical History Surgical History History of bilateral cataract extraction History of colonoscopy History of esophagogastroduodenoscopy (EGD) (03/04/21) EGD per Dr. Christian showed reflux esophagitis, hiatal hernia, gastritis, duodenitis. Family History Family History Mother Family history of lung cancer Family history of mental disorder Father Malignant neoplasm of prostate Family history of chronic obstructive pulmonary disease Family history of lung cancer Sibling Hypertension Family history of hypercholesterolemia Alcoholism Other Family history of cardiovascular disease Social History Social History Social History: The patient lives in his own home in [place]. He has 2 grown children. Former smoker. Longstanding history of alcoholism, consuming half of a fifth of vodka most days. Denies illicit substance use. 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 He does nieces Yancy ledezma, as his surrogate decision maker. Code status: Full code. Smoking packs per day: 0.5 Smoking cigarettes per day: 10.0 Years smoked: 16 Smoking pack-years: 8.00 Smoking status: Former smoker Tobacco type: cigarettes Additional smoking assessment comments: social smoker Alcohol intake: current Drinks per week: 35 Alcohol use details: hx of alcohol abuse -states he doesnt know how much Substance use: never Substance use type: does not use Living arrangements: alone Spiritual care concerns: No Meds Home Medications and Allergies Home Medications Medication Instructions Recorded Confirmed Type gabapentin 300 mg capsule 300 mg PO .at bedtime #90 cap 02/23/20 06/16/21 Rx omega-3 fatty acids 1,000 mg 2,000 mg PO BID cap 02/23/20 06/16/21 History capsule folic acid 1 mg tablet 1 mg PO QAM #90 tablet 06/23/20 06/16/21 Rx pantoprazole 40 mg tablet,delayed 40 mg PO Q12H #180 tablet 06/23/20 06/16/21 Rx releas
[2021-06-27 08:24] VITALS: BP 143/93; PULSE 104; RESP 20; O2SAT 100
[2021-06-27 08:34] VITALS: BP 144/96; PULSE 103; RESP 18; O2SAT 100
[2021-06-27 08:44] VITALS: BP 142/90; PULSE 100; RESP 23; O2SAT 100
== END 2021-06-27 08:56 | disposition home or self-care (01) ==
PROVIDERS: PCP Internal Medicine; Visit Provider Internal Medicine Gastroenterology
PROC: 0DJ08ZZ Inspection of Upper Intestinal Tract, Via Natural or Artificial Opening Endoscopic (ICD-10-PCS; CPT 43235; principal; 2021-06-27 08:15)
DX: R11.2 Nausea with vomiting, unspecified (principal); K22.10 Ulcer of esophagus without bleeding; K21.00 Gastro-esophageal reflux disease with esophagitis, without bleeding; K44.9 Diaphragmatic hernia without obstruction or gangrene; K25.9 Gastric ulcer, unspecified as acute or chronic, without hemorrhage or perforation; K29.50 Unspecified chronic gastritis without bleeding; F10.10 Alcohol abuse, uncomplicated; F41.8 Other specified anxiety disorders; N40.0 Benign prostatic hyperplasia without lower urinary tract symptoms; L30.9 Dermatitis, unspecified; I10 Essential (primary) hypertension; D50.9 Iron deficiency anemia, unspecified; D61.818 Other pancytopenia; G62.9 Polyneuropathy, unspecified; E55.9 Vitamin D deficiency, unspecified; Z87.891 Personal history of nicotine dependence
CPT/HCPCS: 43239; 88305; J2704; J7120

== ENCOUNTER 2021-09-07 20:31 | Emergency (ER) | payer BC, SELFPAY ==
--- NOTE | ~2021-09-07 | CT_ITS ---
EXAMINATION: CT brain wo [facility] EXAM DATE: 09/07/2021 21:24 INDICATION: Seizure TECHNIQUE: Spiral CT of the head was performed without contrast. Axial, coronal and sagittal images were reviewed. The dose-length product (DLP) for this examination was 605.33 mGy-cm. The exposure w as tailored according to patient size, and iterative reconstruction (ASIR) was used as additional dos e reduction technique. Comparison is made to prior examination from 05/07/2021. FINDINGS: There is no acute intraparenchymal hemorrhage. No evidence of intraparenchymal brain mass lesion. No evidence of acute infarction. Please note that initial head CT has limited sensitivity f or small or acute infarctions. There is mild periventricular and subcortical hypodensity, nonspecific but probably related to small vessel ischemic disease. There is moderate prominence of the sulci a nd ventricles related to cerebral atrophy. There is intracranial carotid arteriosclerosis. There a re no extra-axial collections. There is no mass effect or midline shift. Patient has had bilateral ocular lens surgery. Soft tissue is unremarkable. The visualized sinuses and mastoid air cells are well aerated. IMPRESSION: 1. No acute intracranial findings. 2. Chronic age related findings. Reviewed, dictated and finalized at location A. FICATION OPERATOR HELPER
--- NOTE | ~2021-09-07 | XR_ITS ---
EXAMINATION: XR chest 1V portable EXAM DATE: 09/07/2021 23:03 INDICATION: fever . TECHNIQUE: Portable AP frontal chest x-ray was obtained. Comparison is made to prior examination from . FINDINGS: The lungs are clear. Small left pleural effusion. Cardiomediastinal silhouette is normal. There is no pneumothorax suspected. The bones and soft tissues are unremarkable. There is small to moderate sliding gastroesophageal hiatal hernia. IMPRESSION: 1. Small left pleural effusion. 2. Small to moderate hiatal hernia. Reviewed, dictated and finalized at location A. TRACER
--- NOTE | 2021-09-07 20:34 | ECG_ITS ---
Measurements Intervals [place] Rate: 115 P: 53 NE: 162 QRS: 10 QRSD: 98 T: 11 QT: 359 QTc: 497 Interpretive Statements SINUS TACHYCARDIA MINIMAL Q WAVES- ANTEROLAT/HIGH LAT LEADS BASELINE ARTIFACT- I, II, III, AVR, AVL, AVF, V1-V6 ABNORMAL ECG Electronically Signed On 09-08-2021 6:23:31 [employer] SCIENCE PROFESSOR by Jarred Bustillo D.O.
[2021-09-07 20:38] VITALS: BP 131/86; PULSE 137; RESP 20; TEMP 37.3; O2SAT 94
--- NOTE | 2021-09-07 20:55 | PC.NURSE ---
CLARIBEL ZOFRAN 4MG IV PUSH PER ERP DR GARCIA
[2021-09-07] MEDS: ONDANSETRON INJ 4 MG/2 ML VIAL IV PUSH (21:03)
[2021-09-07] MEDS: SODIUM CHLORIDE 0.9% IV 1,000 ML 150 ML IV CONT (21:05)
[2021-09-07] MEDS: LORazepam INJ (*CRX) 2 MG/ML VIAL 1 MG IV PUSH (21:06)
[2021-09-07 21:11] LABS: Basophils Absolute Auto 0.2 K/mm3 (0.0-0.1); Basophils Percent Auto 0.8 % (0.2-1.2); Eosinophils Absolute Auto 0.2 K/mm3 (0-0.3); Eosinophils Percent Auto 0.9 % (0-4.4); Hematocrit 31.7 % (42.0-52.0); Immature Granulocyte Absolute 0.22 K/mm3 (0.00-0.031); Immature Granulocyte Percent A 1.1 % (0-0.5); Immature Platelet Fraction Pct 9.2 % (0.9-11.2); Lymphocytes Absolute Auto 0.67 K/mm3 (0.9-3.2); Lymphocytes Percent Auto 3.2 % (18.3-44.2); Mean Corpuscular HGB Conc 31.5 g/dl (32-36); Mean Corpuscular Hemoglobin 25.4 pg (26-34); Mean Corpuscular Volume 80.7 fl (80-100); Mean Platelet Volume 10.1 fl (7.4-10.4); Monocytes Absolute Auto 1.4 K/mm3 (0.1-0.6); Monocytes Percent Auto 6.6 % (2.6-8.5); Neutrophils Absolute Auto 18.3 K/mm3 (1.3-6.7); Neutrophils Percent Auto 87.4 % (45.5-73.1); Platelet Count Result 81 k/mm3 (150-375); Red Blood Count 3.93 M/mm3 (4.6-6.20); Red Cell Distribution Width 25.9 % (11.5-14.5); White Blood Count 20.9 K/mm3 (4.5-10.0)
[2021-09-07 21:22] LABS: Alanine Aminotransferase 36 U/L (4-50); Albumin Level 4.2 g/dL (3.5-5.1); Alkaline Phosphatase 366 U/L (38-126); Anion Gap 17 mmol/L (8-16); Aspartate Amino Transferase 159 U/L (17-59); Bilirubin,Total 1.9 mg/dL (0.2-1.3); Blood Urea Nitrogen 4 mg/dL (9-20); Calcium 9.1 mg/dL (8.4-10.2); Carbon Dioxide 23 mmol/L (22-30); Chloride 99 mmol/L (98-107); Estimated CRCL calculation 110 ml/min; Estimated Glomerular Filt Rate > 60; Ethanol < 10 mg/dL (<10); Glucose 170 mg/dL (65-110); Potassium 3.4 mmol/L (3.4-5.0); Sodium 139 mmol/L (137-145)
[2021-09-07 22:00] LABS: Anisocytosis 1+ (NORMAL); Platelet Estimate Decreased (Adequate); Poikilocytosis 1+ (NORMAL)
[2021-09-07 22:02] LABS: Target Cells 1+ (NORMAL)
--- NOTE | 2021-09-07 22:44 | ED.SEIZURE ---
HPI - Seizure General Chief Complaint: Seizure Stated Complaint: AMS POST SEIZURE, VOMITING Time Seen by Provider: 09/07/21 20:34 Source: patient Mode of arrival: EMS Limitations: no limitations History of Present Illness HPI Narrative: 56-year-old with remote history of seizure was brought in from home by ambulance with complaints of having seizure-like activity. As per the EMS and family patient was having cold and cough symptoms for the last few days this evening when his fianc?e went to check on him he was having chills later she had seizure-like activity. EMS was called and upon their arrival he was appeared to be in postictal state. Upon arrival to the ER patient is awake and alert. He also complained of nausea and vomiting. He denies any recent alcohol use. complaint: possible seizure Description of Episode: tonic-clonic movement Duration of episode: 3 Witnessed: Yes - by Other (Fianc?) Seizure History: Yes Place: home Associated symptoms: denies other symptoms Treatments prior to arrival: none Related Data Home Medications Medication Instructions Recorded Confirmed omega-3 fatty acids 1,000 mg 2,000 mg PO BID cap 02/23/20 06/16/21 capsule cyanocobalamin (vitamin B-12) 2,000 mcg PO DAILY tablet 05/16/21 06/16/21 1,000 mcg tablet Allergies Allergy/AdvReac Type Severity Reaction Status Date / Time bee venom protein (honey bee) Allergy Severe Swelling Verified 09/07/21 20:43 Review of Systems Review of Systems: All systems reviewed & are unremarkable except as noted in HPI and below Constitutional: Constitutional: Reports no additional constitutional complaints Eyes: Eyes: Reports no additional eye complaints ENT: Reports system reviewed and no additional complaints, except as documented Cardiovascular: Cardiovascular: Reports no additional cardiovascular complaints Respiratory: Respiratory: Reports as per HPI Gastrointestinal: Gastrointestinal: Reports no additional gastrointestinal complaints Musculoskeletal: Musculoskeletal: Reports no additional musculoskeletal complaints Integumentary/Breasts: Skin/Breast: Reports system reviewed and no additional complaints, except as docu Neurologic: Reports system reviewed and no additional complaints, except as documented PMFSH Past Medical History Medical History Alcohol withdrawal seizure Alcoholism Anxiety Benign prostatic hyperplasia Depression Eczema Erosive esophagitis Follow up Gastroesophageal reflux disease GI bleed Related to gastritis and esophageal ulcer. Hiatal hernia History of Clostridium difficile colitis Hospital discharge follow-up Hypertension Iron deficiency anemia Pancytopenia May very well be related to alcohol abuse. Evaluated by Hematology in the past with no plans for bone marrow biopsy at this time. Peripheral neuropathy Peripheral neuropathy Vitamin D deficiency Surgical History Surgical History History of bilateral cataract extraction History of colonoscopy History of esophagogastroduodenoscopy (EGD) (03/04/21) EGD per Dr. Christian showed reflux esophagitis, hiatal hernia, gastritis, duodenitis. Family History Family History (Reviewed 05/16/21 @ 11:44 by Kimberlee Goodwin [facility]) Mother Family history of lung cancer Family history of mental disorder Father Malignant neoplasm of prostate Family history of chronic obstructive pulmonary disease Family history of lung cancer Sibling Hypertension Family history of hypercholesterolemia Alcoholism Other Family history of cardiovascular disease Social History Social History (Reviewed 05/16/21 @ 11:44 by Kimberlee Goodwin [facility]) Social History: The patient lives in his own home in [place]. He has 2 grown children. Former smoker. Longstanding history of alcoholism, consuming half of a fifth of vodka most days. Denies illicit substance use.
[2021-09-07 23:10] LABS: Add Urine Microscopic? YES; Appearance Urine Clear (Clear); Bilirubin Urine Negative (Negative); Blood Urine Negative (Negative); Color Urine Yellow (Yellow); Glucose Urine UA Negative (Negative); Ketones Urine 1+ mg/dL (Negative); Leukocyte Esterase Ur Negative LEU/UL (Negative); Mucus Urine Rare /lpf; Nitrate Urine Negative (Negative); Protein Urine 2+ mg/dL (Negative); RBC Urine 0-2 /hpf (0-2); Specific Grav Ur 1.015 (1.001-1.035); WBC Urine 0-3 /hpf
[2021-09-07 23:51] VITALS: BP 126/90; PULSE 111; RESP 18; O2SAT 94
[2021-09-08 14:35] LABS: SARS-CoV-2 RNA PCR Negative
== END 2021-09-07 23:52 | disposition home or self-care (01) ==
PROVIDERS: Emergency Provider Family Medicine; PCP Internal Medicine
DX: R56.9 Unspecified convulsions (principal); D72.829 Elevated white blood cell count, unspecified; Z20.822 Contact with and (suspected) exposure to COVID-19; R00.0 Tachycardia, unspecified; F41.9 Anxiety disorder, unspecified; F32.9 Major depressive disorder, single episode, unspecified; K21.9 Gastro-esophageal reflux disease without esophagitis; I10 Essential (primary) hypertension
CPT/HCPCS: 36415; 70450; 71045; 80053; 80307; 81001; 85025; 85055; 93005; 96361; 96374; 96375; 99284; C9803; J2060; J2405; J7030; U0003; U0005

== ENCOUNTER 2021-09-23 08:05 | Outpatient (RCR) | payer BC, SELFPAY ==
--- NOTE | 2021-09-22 12:25 | PC.NURSE ---
Left message for patient confirming appointment and asking patient to call back if he cannot keep this appointment.
[2021-09-23] MEDS: ACETAMINOPHEN 325 MG TABLET 650 MG PO (09:04)
[2021-09-23] MEDS: FAMOTIDINE 20 MG TABLET PO (09:04)
[2021-09-23] MEDS: diphenhydrAMINE HCl CAP 25 MG CAPSULE PO (09:04)
[2021-09-23 09:08] VITALS: BP 126/81; PULSE 118; O2SAT 97
--- NOTE | 2021-09-23 09:40 | PC.NURSE ---
Unable to get intravenous access after three attempts.
[2021-09-23 10:30] VITALS: BP 142/90; PULSE 101; O2SAT 93
== END 2021-09-23 16:00 ==
LOC: AMCINF 08:05
PROVIDERS: PCP Internal Medicine; Visit Provider Internal Medicine Hematology & Oncology
DX: U07.1 COVID-19 (principal); I10 Essential (primary) hypertension; D84.9 Immunodeficiency, unspecified
CPT/HCPCS: A9270; M0243; Q0244

== ENCOUNTER 2021-10-03 11:12 | Outpatient (CLI) | payer BC, SELFPAY ==
[2021-10-03 11:48] LABS: Basophils Absolute Auto 0.1 K/mm3 (0.0-0.1); Basophils Percent Auto 0.8 % (0.2-1.2); Eosinophils Absolute Auto 0.6 K/mm3 (0-0.3); Eosinophils Percent Auto 3.7 % (0-4.4); Hematocrit 30.8 % (42.0-52.0); Hemoglobin 9.6 g/dL (14.0-18.0); Immature Granulocyte Absolute 0.07 K/mm3 (0.00-0.031); Immature Granulocyte Percent A 0.5 % (0-0.5); Immature Platelet Fraction Pct 9.8 % (0.9-11.2); Lymphocytes Absolute Auto 1.04 K/mm3 (0.9-3.2); Mean Corpuscular HGB Conc 31.2 g/dl (32-36); Mean Corpuscular Hemoglobin 27.1 pg (26-34); Monocytes Absolute Auto 1.3 K/mm3 (0.1-0.6); Monocytes Percent Auto 8.6 % (2.6-8.5); Neutrophils Absolute Auto 11.7 K/mm3 (1.3-6.7); Neutrophils Percent Auto 79.4 % (45.5-73.1); Red Blood Count 3.54 M/mm3 (4.6-6.20); Red Cell Distribution Width 24.8 % (11.5-14.5); White Blood Count 14.8 K/mm3 (4.5-10.0)
[2021-10-03 12:03] LABS: Alanine Aminotransferase 39 U/L (4-50); Albumin Level 4.2 g/dL (3.5-5.1); Alkaline Phosphatase 362 U/L (38-126); Anion Gap 11 mmol/L (8-16); Aspartate Amino Transferase 171 U/L (17-59); Bilirubin,Total 1.2 mg/dL (0.2-1.3); Blood Urea Nitrogen 10 mg/dL (9-20); Calcium 8.6 mg/dL (8.4-10.2); Carbon Dioxide 28 mmol/L (22-30); Chloride 102 mmol/L (98-107); Cholesterol 213 mg/dL (0-200); Estimated Glomerular Filt Rate > 60; Glucose 107 mg/dL (65-110); HDL Direct 82 mg/dL; Platelet Count Result 62 k/mm3 (150-375); Potassium 3.4 mmol/L (3.4-5.0); Sodium 141 mmol/L (137-145); Triglycerides 85 mg/dL (<150)
[2021-10-03 12:04] LABS: Hemoglobin A1C 4.7 % (<5.7)
[2021-10-03 12:12] LABS: LDL Cholesterol Direct 88 mg/dL
[2021-10-03 12:44] LABS: Free T4 Free Thyroxine 1.23 ng/mL (0.78-2.19); Vitamin D 25 Hydroxy 32.5 ng/mL
[2021-10-03 13:17] LABS: Folic Acid 3.5 ng/mL (2.76->20); Vitamin B12 > 1000.0 pg/mL (239-931)
== END 2021-10-03 11:13 | disposition home or self-care (01) ==
LOC: ANHLAB 11:14
PROVIDERS: PCP Internal Medicine; Visit Provider Internal Medicine
DX: E78.2 Mixed hyperlipidemia (principal); I10 Essential (primary) hypertension; E53.8 Deficiency of other specified B group vitamins; Z79.899 Other long term (current) drug therapy; Z13.29 Encounter for screening for other suspected endocrine disorder; E55.9 Vitamin D deficiency, unspecified
CPT/HCPCS: 36415; 80053; 80061; 82306; 82607; 82746; 83036; 84439; 84443; 85025; 85055

== ENCOUNTER → 2021-10-13 00:45 | Outpatient (CLI) | payer BC, SELFPAY ==
[2021-10-13 12:03] LABS: SARS-CoV-2 RNA PCR Negative
== END ==
PROVIDERS: PCP Internal Medicine; Visit Provider Internal Medicine
DX: Z20.822 Contact with and (suspected) exposure to COVID-19 (principal)
CPT/HCPCS: C9803; U0003; U0005

== ENCOUNTER 2022-01-02 01:10 | Day surgery (SDC) | payer BC, SELFPAY ==
[2021-12-30 08:49] VITALS: BMI 27.4
[2022-01-02 11:46] VITALS: BP 119/77; PULSE 83; RESP 18; TEMP 36.1; O2SAT 98
[2022-01-02] MEDS: LACTATED RINGERS 1,000 ML 150 ML IV CONT (11:50)
--- NOTE | 2022-01-02 12:48 | WPDANESEPPF ---
Anes - Initial Pre Proc Eval Procedure: Operation Date: 01/02/22 13:00 Proposed Procedures p Esophagogastroduodenoscopy - Ish Sarabia MD Date/Time: 01/02/22 12:48 Surgeon: Ish Sarabia MD Pre Op Diagnosis: gastric ulcer Patient Data Age: 56 Gender: M Height: 1.73 m Weight: 85.1 kg Last Vital Signs Temp 97.0 F L 01/02/22 11:46 Pulse 83 01/02/22 11:46 Resp 18 01/02/22 11:46 BP 119/77 01/02/22 11:46 Pulse Ox 98 01/02/22 11:46 Allergies Allergy/AdvReac Type Severity Reaction Status Date / Time bee venom protein (honey bee) Allergy Severe Swelling Verified 01/02/22 11:43 Home Medications Medication Instructions Recorded Confirmed Type gabapentin 300 mg capsule 300 mg PO .at bedtime #90 cap 02/23/20 12/30/21 Rx omega-3 fatty acids 1,000 mg 2,000 mg PO BID cap 02/23/20 12/30/21 History capsule folic acid 1 mg tablet 1 mg PO QAM #90 tablet 06/23/20 12/30/21 Rx thiamine HCl (vitamin B1) 100 mg 100 mg PO QAM #90 tablet 06/23/20 12/30/21 Rx tablet ferrous sulfate 325 mg (65 mg 325 mg PO BID #60 tablet 03/17/21 12/30/21 Rx iron) tablet,delayed release cyanocobalamin (vitamin B-12) 2,000 mcg PO DAILY tablet 05/16/21 12/30/21 History 1,000 mcg tablet pantoprazole 40 mg tablet,delayed 40 mg PO Q12H #180 tablet 06/27/21 12/30/21 Rx release rosuvastatin 40 mg tablet 40 mg PO DAILY #30 tablet 10/05/21 12/30/21 Rx Cerretos Neuropathy Cream 1 unit TOPICAL .tid-qid #16 oz 12/14/21 12/30/21 Rx hydroxyzine HCl 50 mg tablet 50 mg PO PRN PRN 12/14/21 12/30/21 History sildenafil 50 mg tablet 50 mg PO DAILY PRN #10 tablet 12/14/21 12/30/21 Rx actbmukq-byx-khfcl-vit K-lycop 1 tablet PO DAILY 12/30/21 12/30/21 History [Men's 50 Plus Multivitamin] Patient hx anesthesia problems: none Family hx anesthesia problems: none Results Review: All pre-operative results and documents have been reviewed as part of the pre-operative evaluation. [facility] Past Medical History Medical History (Updated 12/14/21 @ 08:13 by Kimberlee Goodwin [facility]) Alcohol withdrawal seizure Alcoholism Anxiety Benign prostatic hyperplasia BMI 25.0-25.9,adult Depression Eczema Erectile dysfunction Erosive esophagitis Follow up Gastroesophageal reflux disease GI bleed Related to gastritis and esophageal ulcer. Hiatal hernia History of Clostridium difficile colitis Hospital discharge follow-up Hx of colonic polyps Hyperlipidemia Hypertension Hypocalcemia Iron deficiency anemia LOC (loss of consciousness) Marital estrangement Other specified diseases of blood and blood-forming organs Pancytopenia May very well be related to alcohol abuse. Evaluated by Hematology in the past with no plans for bone marrow biopsy at this time. Peripheral neuropathy Peripheral neuropathy Personal history of COVID-19 Prostate cancer screening Resting tremor Seasonal affective disorder Seizure Testicular hypofunction Vitamin D deficiency Vitamin D deficiency Surgical History Surgical History History of bilateral cataract extraction History of colonoscopy History of esophagogastroduodenoscopy (EGD) (03/04/21) EGD per Dr. Christian showed reflux esophagitis, hiatal hernia, gastritis, duodenitis. Family History Family History Mother Family history of lung cancer Family history of mental disorder Father Malignant neoplasm of prostate Family history of chronic obstructive pulmonary disease Family history of lung cancer Sibling Hypertension Family history of hypercholesterolemia Alcoholism Other Family history of cardiovascular disease Social History Social History Social History: The patient lives in his own home in [place]. He has 2 grown children. Former smoker. Longstanding history of alcoholism, consuming half of a
--- NOTE | 2022-01-02 12:50 | PM.HPGS ---
History of Present Illness History of Present Illness Consent: Risks, benefits, and alternatives have been discussed and questions answered. Patient agrees to proceed with procedure. Chief complaint: gastric ulcer Narrative: Jones Painting is a 56 year old male with erosive esophagitis/ulcerative gastritis few months ago, he is doing much better after using protonix. Review of Systems Constitutional: Constitutional: Denies headache(s) and Denies weakness Eyes: Eyes: Denies blurry vision ENT: Reports Normal hearing present, Denies headache(s) and Denies neck pain Cardiovascular: Cardiovascular: Denies chest pain and Denies dyspnea Respiratory: Respiratory: Denies dyspnea Gastrointestinal: Gastrointestinal: Reports no additional gastrointestinal complaints Genitourinary: Genitourinary: Denies dysuria Musculoskeletal: Musculoskeletal: Denies neck pain Integumentary/Breasts: Skin/Breast: Denies dry skin Neurologic: Reports Normal hearing present, Denies headache(s) and Denies weakness Psychiatric: Psychiatric: Denies anxiety Endocrine: Endocrine: Denies change in body appearance Hematologic/Lymphatic: Hematologic/Lymphatic: Denies easy bleeding Allergic/Immunologic: Allergic/Immunologic: Denies urticaria PMF Past Medical History Medical History (Updated 12/14/21 @ 08:13 by Kimberlee Goodwin CMA) Alcohol withdrawal seizure Alcoholism Anxiety Benign prostatic hyperplasia BMI 25.0-25.9,adult Depression Eczema Erectile dysfunction Erosive esophagitis Follow up Gastroesophageal reflux disease GI bleed Related to gastritis and esophageal ulcer. Hiatal hernia History of Clostridium difficile colitis Hospital discharge follow-up Hx of colonic polyps Hyperlipidemia Hypertension Hypocalcemia Iron deficiency anemia LOC (loss of consciousness) Marital estrangement Other specified diseases of blood and blood-forming organs Pancytopenia May very well be related to alcohol abuse. Evaluated by Hematology in the past with no plans for bone marrow biopsy at this time. Peripheral neuropathy Peripheral neuropathy Personal history of COVID-19 Prostate cancer screening Resting tremor Seasonal affective disorder Seizure Testicular hypofunction Vitamin D deficiency Vitamin D deficiency Surgical History Surgical History History of bilateral cataract extraction History of colonoscopy History of esophagogastroduodenoscopy (EGD) (03/04/21) EGD per Dr. Christian showed reflux esophagitis, hiatal hernia, gastritis, duodenitis. Family History Family History Mother Family history of lung cancer Family history of mental disorder Father Malignant neoplasm of prostate Family history of chronic obstructive pulmonary disease Family history of lung cancer Sibling Hypertension Family history of hypercholesterolemia Alcoholism Other Family history of cardiovascular disease Social History Social History Social History: The patient lives in his own home in [place]. He has 2 grown children. Former smoker. Longstanding history of alcoholism, consuming half of a fifth of vodka most days. Denies illicit substance use. 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 He does niYancy keys, as his surrogate decision maker. Code status: Full code. Smoking packs per day: 0.5 Smoking cigarettes per day: 10.0 Years smoked: 17 Smoking pack-years: 8.50 Smoking status: Former smoker Tobacco type: cigarettes Additional smoking assessment comments: social smoker Alcohol intake: former Drinks per week: 35 Alcohol use details: history of etoh abuse, stopped this year Sep 2021 Substance use: never Substance use type: does not use Living arrangements: with friend(s) Spiritual care concerns: No Meds Home Medications and All
[2022-01-02 13:05] VITALS: BP 105/85; PULSE 78; RESP 14; O2SAT 99
[2022-01-02 13:15] VITALS: BP 117/84; PULSE 77; RESP 15; O2SAT 100
[2022-01-02 13:25] VITALS: BP 123/85; PULSE 73; RESP 14; O2SAT 100
== END 2022-01-02 13:38 | disposition home or self-care (01) ==
PROVIDERS: PCP Internal Medicine; Visit Provider Internal Medicine Gastroenterology
PROC: 0DJ08ZZ Inspection of Upper Intestinal Tract, Via Natural or Artificial Opening Endoscopic (ICD-10-PCS; CPT 43235; principal; 2022-01-02 13:00)
DX: K29.70 Gastritis, unspecified, without bleeding (principal); K21.9 Gastro-esophageal reflux disease without esophagitis; K44.9 Diaphragmatic hernia without obstruction or gangrene; Z87.19 Personal history of other diseases of the digestive system; I10 Essential (primary) hypertension; E78.5 Hyperlipidemia, unspecified; D50.9 Iron deficiency anemia, unspecified; F41.8 Other specified anxiety disorders; E55.9 Vitamin D deficiency, unspecified; N40.0 Benign prostatic hyperplasia without lower urinary tract symptoms; Z87.891 Personal history of nicotine dependence; F10.21 Alcohol dependence, in remission
CPT/HCPCS: 43239; 88305; 88313; J2704; J7120

== ENCOUNTER 2022-03-14 08:54 | Outpatient (CLI) | payer BC, SELFPAY ==
[2022-03-14 09:15] LABS: Basophils Percent Auto 0.5 % (0.2-1.2); Eosinophils Absolute Auto 0.2 K/mm3 (0-0.3); Eosinophils Percent Auto 2.6 % (0-4.4); Hematocrit 39.7 % (42.0-52.0); Hemoglobin 13.2 g/dL (14.0-18.0); Immature Granulocyte Absolute 0.01 K/mm3 (0.00-0.031); Immature Granulocyte Percent A 0.2 % (0-0.5); Immature Platelet Fraction Pct 2.3 % (0.9-11.2); Lymphocytes Absolute Auto 1.38 K/mm3 (0.9-3.2); Lymphocytes Percent Auto 21.2 % (18.3-44.2); Mean Corpuscular HGB Conc 33.2 g/dl (32-36); Mean Corpuscular Hemoglobin 30.7 pg (26-34); Mean Corpuscular Volume 92.3 fl (80-100); Mean Platelet Volume 9.5 fl (7.4-10.4); Monocytes Absolute Auto 0.7 K/mm3 (0.1-0.6); Monocytes Percent Auto 10.2 % (2.6-8.5); Neutrophils Absolute Auto 4.3 K/mm3 (1.3-6.7); Neutrophils Percent Auto 65.3 % (45.5-73.1); Platelet Count Result 137 k/mm3 (150-375); Red Cell Distribution Width 14.7 % (11.5-14.5); White Blood Count 6.5 K/mm3 (4.5-10.0)
[2022-03-14 09:25] LABS: Cholesterol 143 mg/dL (0-200); HDL Direct 46 mg/dL; Triglycerides 68 mg/dL (<150)
[2022-03-14 09:33] LABS: Hemoglobin A1C 5.3 % (<5.7)
[2022-03-14 09:36] LABS: LDL Cholesterol Direct 60 mg/dL
[2022-03-14 10:11] LABS: Free T4 Free Thyroxine 1.13 ng/mL (0.78-2.19); Vitamin D 25 Hydroxy 62.1 ng/mL
[2022-03-14 10:20] LABS: Iron 67 ug/dL (49-181); Percent Iron Saturation 18 % (20-50)
[2022-03-14 10:32] LABS: Folic Acid 17.5 ng/mL (2.76->20)
[2022-03-17 23:58] LABS: Testosterone Total 367 ng/dL (250-1100)
== END 2022-03-14 08:55 | disposition home or self-care (01) ==
LOC: ANHLAB 08:56
PROVIDERS: PCP Internal Medicine; Visit Provider Internal Medicine
DX: Z13.29 Encounter for screening for other suspected endocrine disorder (principal); Z79.899 Other long term (current) drug therapy; Z13.1 Encounter for screening for diabetes mellitus; I10 Essential (primary) hypertension; E29.1 Testicular hypofunction; D50.9 Iron deficiency anemia, unspecified; E55.9 Vitamin D deficiency, unspecified; E53.8 Deficiency of other specified B group vitamins
CPT/HCPCS: 36415; 80061; 82306; 82607; 82728; 82746; 83036; 83540; 83550; 84403; 84439; 84443; 85025; 85055

== ENCOUNTER 2022-03-28 09:59 | Outpatient (CLI) | payer BC, SELFPAY ==
[2022-03-28 11:19] LABS: Prostate Specific Antigen 0.6 ng/mL (< OR = 4.0)
[2022-04-02 08:24] LABS: Testosterone Total 369 ng/dL (250-1100)
== END 2022-03-28 10:00 | disposition home or self-care (01) ==
LOC: ANHLAB 10:03
PROVIDERS: PCP Internal Medicine; Visit Provider Internal Medicine
DX: R53.83 Other fatigue (principal); Z12.5 Encounter for screening for malignant neoplasm of prostate
CPT/HCPCS: 36415; 84153; 84403; G0103

== ENCOUNTER 2022-05-22 01:41 | Day surgery (SDC) | payer BC, SELFPAY ==
[2022-05-04 14:41] VITALS: BMI 28.8
[2022-05-22 07:45] VITALS: BP 120/83; PULSE 79; RESP 16; TEMP 36.4; O2SAT 98; BMI 28.8
[2022-05-22] MEDS: LACTATED RINGERS 1,000 ML 150 ML IV CONT (07:56)
--- NOTE | 2022-05-22 08:17 | WPDANESEPPF ---
Anes - Initial Pre Proc Eval Procedure: Operation Date: 05/22/22 09:00 Proposed Procedures p Screening Colonoscopy - Ger John MD Date/Time: 05/22/22 08:17 Surgeon: Ger John MD Pre Op Diagnosis: neoplasm screening, hx colon polyps Patient Data Age: 57 Gender: M Height: 1.73 m Weight: 86.1 kg Last Vital Signs Temp 97.6 F 05/22/22 07:45 Pulse 79 05/22/22 07:45 Resp 16 05/22/22 07:45 BP 120/83 05/22/22 07:45 Pulse Ox 98 05/22/22 07:45 O2 Del Method Room Air 05/22/22 07:45 Allergies Allergy/AdvReac Type Severity Reaction Status Date / Time bee venom protein (honey bee) Allergy Severe Swelling Verified 05/22/22 07:42 Home Medications Medication Instructions Recorded Confirmed Type omega-3 fatty acids 1,000 mg 2,000 mg PO BID 02/23/20 05/22/22 History capsule (Fish Oil Concentrate) folic acid 1 mg tablet 1 mg PO QAM #90 tabs 06/23/20 05/22/22 Rx thiamine HCl (vitamin B1) 100 mg 100 mg PO QAM #90 tabs 06/23/20 05/22/22 Rx tablet (Vitamin B-1) cyanocobalamin (vitamin B-12) 2,000 mcg PO DAILY 05/16/21 05/22/22 History 1,000 mcg tablet Cerretos Neuropathy Cream 1 unit topical .tid-qid #16 oz 12/14/21 05/22/22 Rx tlksnbtvcqsx-fzm-erlls acid-vit 1 tablet PO DAILY 12/30/21 05/22/22 History K-lycop 400 mcg-20 mcg-370 mcg tablet (Men's 50 Plus Multivitamin) tamsulosin 0.4 mg capsule (Flomax) 0.4 mg PO DAILY #90 caps 01/06/22 05/22/22 Rx rosuvastatin 40 mg tablet 40 mg PO DAILY #30 tabs 03/02/22 05/22/22 Rx pantoprazole 40 mg tablet,delayed 40 mg PO Q12H #60 tabs 03/28/22 05/22/22 Rx release (Protonix) sildenafil 50 mg tablet (Viagra) 50 mg PO DAILY PRN sexual activity 03/28/22 05/22/22 Rx #10 tabs Patient hx anesthesia problems: none Family hx anesthesia problems: none Results Review: All pre-operative results and documents have been reviewed as part of the pre-operative evaluation. [facility] Past Medical History Medical History (Updated 03/29/22 @ 12:23 by Muriel Velásquez) Alcohol withdrawal seizure Alcoholism Anxiety Benign prostatic hyperplasia BMI 25.0-25.9,adult BMI 29.0-29.9,adult Depression Eczema Erectile dysfunction Erosive esophagitis Follow up Gastroesophageal reflux disease GI bleed Related to gastritis and esophageal ulcer. Hiatal hernia History of Clostridium difficile colitis Hospital discharge follow-up Hx of colonic polyps Hyperlipidemia Hypertension Hypocalcemia Iron deficiency anemia LOC (loss of consciousness) Marital estrangement Other specified diseases of blood and blood-forming organs Pancytopenia May very well be related to alcohol abuse. Evaluated by Hematology in the past with no plans for bone marrow biopsy at this time. Peripheral neuropathy Peripheral neuropathy Personal history of COVID-19 Prostate cancer screening Resting tremor Seasonal affective disorder Seizure Testicular hypofunction Vitamin D deficiency Vitamin D deficiency Surgical History Surgical History History of bilateral cataract extraction History of colonoscopy History of esophagogastroduodenoscopy (EGD) (03/04/21) EGD per Dr. Christian showed reflux esophagitis, hiatal hernia, gastritis, duodenitis. Family History Family History Mother Family history of lung cancer Family history of mental disorder Father Malignant neoplasm of prostate Family history of chronic obstructive pulmonary disease Family history of lung cancer Sibling Hypertension Family history of hypercholesterolemia Alcoholism Other Family history of cardiovascular disease Social History Social History Social History: The patient lives in his own home in [place]. He has 2 grown children. Former smoker. Longstanding history of alcoholism, consuming half of a fifth of vodka most d
--- NOTE | 2022-05-22 08:20 | PM.IMHP ---
H&P: HPI History of Present Illness Date/Time: 05/22/22 08:20 Chief Complaint: History of colon polyps. Narrative: This is a 57-year-old white male patient presents for screening colonoscopy. Patient reports that his current weight appetite and bowel movements are normal. Patient denies abdominal pain. He has had no bleeding. Previous colonoscopy 2014 revealed an adenomatous colon polyp. Patient presents today for follow-up screening colonoscopy. Patient also has a history of GE reflux disease. He has a prior history of erosive esophagitis in 2020. Johnson's esophagus apparently was confirmed in January of 2022. Anticipate follow-up endoscopy at 3 year intervals. Patient should remain on PPI therapy for this long-term. currently he takes pantoprazole 40mg p.o. b.i.d.. Review of Systems Review of Systems: Review of systems noncontributory. [facility] Past Medical History Medical History (Updated 05/22/22 @ 08:23 by Ger John MD) Alcohol withdrawal seizure Alcoholism Anxiety Benign prostatic hyperplasia BMI 25.0-25.9,adult BMI 29.0-29.9,adult Depression Eczema Erectile dysfunction Erosive esophagitis Follow up Gastroesophageal reflux disease GI bleed Related to gastritis and esophageal ulcer. Hiatal hernia History of Clostridium difficile colitis Hospital discharge follow-up Hx of colonic polyps Hyperlipidemia Hypertension Hypocalcemia Iron deficiency anemia LOC (loss of consciousness) Marital estrangement Other specified diseases of blood and blood-forming organs Pancytopenia May very well be related to alcohol abuse. Evaluated by Hematology in the past with no plans for bone marrow biopsy at this time. Peripheral neuropathy Peripheral neuropathy Personal history of COVID-19 Prostate cancer screening Resting tremor Seasonal affective disorder Seizure Testicular hypofunction Vitamin D deficiency Vitamin D deficiency Surgical History Surgical History History of bilateral cataract extraction History of colonoscopy History of esophagogastroduodenoscopy (EGD) (03/04/21) EGD per Dr. Christian showed reflux esophagitis, hiatal hernia, gastritis, duodenitis. Family History Family History Mother Family history of lung cancer Family history of mental disorder Father Malignant neoplasm of prostate Family history of chronic obstructive pulmonary disease Family history of lung cancer Sibling Hypertension Family history of hypercholesterolemia Alcoholism Other Family history of cardiovascular disease Social History Social History Social History: The patient lives in his own home in [place]. He has 2 grown children. Former smoker. Longstanding history of alcoholism, consuming half of a fifth of vodka most days. Denies illicit substance use. 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 He does nieces darien Yancy, as his surrogate decision maker. Code status: Full code. Smoking packs per day: 0.5 Smoking cigarettes per day: 10.0 Years smoked: 17 Smoking pack-years: 8.50 Smoking status: Former smoker Tobacco type: cigarettes and cigars Additional smoking assessment comments: social smoker Alcohol intake: former Drinks per week: 20 Alcohol use details: history of etoh abuse, stopped this year Sep 2021 Substance use: never Substance use type: does not use Living arrangements: alone Spiritual care concerns: No Meds Home Medications and Allergies Home Medications Medication Instructions Recorded Confirmed Type omega-3 fatty acids 1,000 mg 2,000 mg PO BID 02/23/20 05/22/22 History capsule (Fish Oil Concentrate) folic acid 1 mg tablet 1 mg PO QAM #90 tabs 06/23/20 05/22/22 Rx thiamine HCl (vitamin B1) 100 mg 100 mg PO QAM #90 tabs 06/23/20 05/22/22 Rx tablet (Vitamin B-1) cyanocobalamin
[2022-05-22] MEDS: SIMETHICONE ORAL SUSPENSION 20 MG/0.3 ML 30 ML BOTTLE 0.6 ML IRRIGATION (08:41)
[2022-05-22 08:54] VITALS: BP 117/80; PULSE 73; RESP 16; O2SAT 100
[2022-05-22 09:04] VITALS: BP 116/77; PULSE 68; RESP 20; O2SAT 100
[2022-05-22 09:14] VITALS: BP 115/80; PULSE 61; RESP 17; O2SAT 100
== END 2022-05-22 09:25 | disposition home or self-care (01) ==
PROVIDERS: PCP Internal Medicine; Visit Provider Internal Medicine Gastroenterology
PROC: 0DJD8ZZ Inspection of Lower Intestinal Tract, Via Natural or Artificial Opening Endoscopic (ICD-10-PCS; CPT 45378; principal; 2022-05-22 09:00)
DX: Z12.11 Encounter for screening for malignant neoplasm of colon (principal); D12.2 Benign neoplasm of ascending colon; K22.70 Barrett's esophagus without dysplasia; K64.8 Other hemorrhoids; K57.30 Diverticulosis of large intestine without perforation or abscess without bleeding; F41.9 Anxiety disorder, unspecified; K27.9 Peptic ulcer, site unspecified, unspecified as acute or chronic, without hemorrhage or perforation; F32.A Depression, unspecified; L30.9 Dermatitis, unspecified; K44.9 Diaphragmatic hernia without obstruction or gangrene; E78.5 Hyperlipidemia, unspecified; G62.9 Polyneuropathy, unspecified; D61.818 Other pancytopenia; Z86.16 Personal history of COVID-19; E55.9 Vitamin D deficiency, unspecified; R25.1 Tremor, unspecified; Z87.891 Personal history of nicotine dependence; Z86.010 Personal history of colon polyps
CPT/HCPCS: 45385; 88305; J2704; J7120

== ENCOUNTER 2022-10-11 09:44 | Outpatient (CLI) | payer BC, SELFPAY ==
[2022-10-11 12:09] LABS: Folic Acid 15.2 ng/mL (2.76->20)
[2022-10-11 12:16] LABS: Vitamin D 25 Hydroxy 42.5 ng/mL
[2022-10-17 10:36] LABS: Testosterone Total 338 ng/dL (250-1100)
== END 2022-10-11 09:45 | disposition home or self-care (01) ==
LOC: ANHLAB 09:46
PROVIDERS: PCP Internal Medicine; Visit Provider Internal Medicine
DX: E53.8 Deficiency of other specified B group vitamins (principal); E55.9 Vitamin D deficiency, unspecified; E29.1 Testicular hypofunction
CPT/HCPCS: 36415; 82306; 82607; 82746; 83735; 84403

== ENCOUNTER 2022-12-06 07:44 | Outpatient (CLI) | payer BC, SELFPAY ==
[2022-12-09 00:49] LABS: PCP NEGATIVE ng/mL (<25)
[2022-12-11 15:07] LABS: Amphetamines Negative; Barbiturates Negative; Benzodiazepines Negative; Cocaine Metabolites Negative; Marijuana Metabolites Negative
== END 2022-12-06 07:45 | disposition home or self-care (01) ==
PROVIDERS: PCP Internal Medicine; Visit Provider Internal Medicine
DX: Z02.83 Encounter for blood-alcohol and blood-drug test (principal)
CPT/HCPCS: 80307

== ENCOUNTER 2023-05-23 14:25 | Outpatient (CLI) | payer BC, SELFPAY ==
[2023-05-23 14:57] LABS: Basophils Percent Auto 0.4 % (0.2-1.2); Eosinophils Absolute Auto 0.2 K/mm3 (0-0.3); Eosinophils Percent Auto 1.7 % (0-4.4); Hematocrit 44.4 % (42.0-52.0); Hemoglobin 15.1 g/dL (14.0-18.0); Immature Granulocyte Absolute 0.03 K/mm3 (0.00-0.031); Immature Granulocyte Percent A 0.3 % (0-0.5); Lymphocytes Absolute Auto 1.97 K/mm3 (0.9-3.2); Lymphocytes Percent Auto 21.4 % (18.3-44.2); Mean Corpuscular Hemoglobin 31.7 pg (26-34); Mean Corpuscular Volume 93.1 fl (80-100); Monocytes Absolute Auto 0.7 K/mm3 (0.1-0.6); Monocytes Percent Auto 7.8 % (2.6-8.5); Neutrophils Absolute Auto 6.3 K/mm3 (1.3-6.7); Neutrophils Percent Auto 68.4 % (45.5-73.1); Platelet Count Result 150 k/mm3 (150-375); Red Blood Count 4.77 M/mm3 (4.6-6.20); Red Cell Distribution Width 13.3 % (11.5-14.5); White Blood Count 9.2 K/mm3 (4.5-10.0)
[2023-05-23 15:15] LABS: Alanine Aminotransferase 25 U/L (6-50); Albumin Level 4.3 g/dL (3.5-5.1); Alkaline Phosphatase 77 U/L (38-126); Anion Gap 4 mmol/L (8-16); Aspartate Amino Transferase 27 U/L (17-59); Bilirubin,Total 0.8 mg/dL (0.2-1.3); Blood Urea Nitrogen 13 mg/dL (9-20); Calcium 8.8 mg/dL (8.4-10.2); Carbon Dioxide 28 mmol/L (22-30); Chloride 107 mmol/L (98-107); Cholesterol 196 mg/dL (0-200); Estimated Glomerular Filt Rate > 60; Glucose 113 mg/dL (65-110); HDL Direct 45 mg/dL; Potassium 4.1 mmol/L (3.4-5.0); Sodium 139 mmol/L (137-145); Triglycerides 193 mg/dL (<150)
[2023-05-23 15:26] LABS: LDL Cholesterol Direct 116 mg/dL
[2023-05-23 16:19] LABS: Folic Acid 13.1 ng/mL (2.76->20)
[2023-05-23 17:19] LABS: Free T4 Free Thyroxine 1.33 ng/mL (0.78-2.19); Vitamin D 25 Hydroxy 45.5 ng/mL
[2023-05-23 17:37] LABS: Prostate Specific Antigen 1.3 ng/mL (< OR = 4.0)
[2023-05-23 21:37] LABS: Hemoglobin A1C 5.2 % (<5.7)
== END 2023-05-23 14:26 | disposition home or self-care (01) ==
LOC: ANHLAB 14:27
PROVIDERS: PCP Internal Medicine; Visit Provider Internal Medicine
DX: Z13.1 Encounter for screening for diabetes mellitus (principal); Z79.899 Other long term (current) drug therapy; I10 Essential (primary) hypertension; R79.89 Other specified abnormal findings of blood chemistry; Z13.29 Encounter for screening for other suspected endocrine disorder; Z12.5 Encounter for screening for malignant neoplasm of prostate; E78.5 Hyperlipidemia, unspecified; E55.9 Vitamin D deficiency, unspecified
CPT/HCPCS: 36415; 80053; 80061; 82306; 82607; 82746; 83036; 84153; 84439; 84443; 85025; G0103

== ENCOUNTER 2023-12-05 13:59 | Outpatient (CLI) | payer BC, SELFPAY ==
[2023-12-05 14:25] LABS: Basophils Absolute Auto 0.1 K/mm3 (0.0-0.1); Basophils Percent Auto 0.5 % (0.2-1.2); Eosinophils Absolute Auto 0.1 K/mm3 (0-0.3); Eosinophils Percent Auto 1.2 % (0-4.4); Hematocrit 46.8 % (42.0-52.0); Hemoglobin 15.7 g/dL (14.0-18.0); Immature Granulocyte Absolute 0.05 K/mm3 (0.00-0.031); Immature Granulocyte Percent A 0.4 % (0-0.5); Lymphocytes Absolute Auto 1.92 K/mm3 (0.9-3.2); Lymphocytes Percent Auto 16.2 % (18.3-44.2); Mean Corpuscular HGB Conc 33.5 g/dl (32-36); Mean Corpuscular Hemoglobin 31.9 pg (26-34); Mean Corpuscular Volume 95.1 fl (80-100); Mean Platelet Volume 9.4 fl (7.4-10.4); Monocytes Absolute Auto 1.5 K/mm3 (0.1-0.6); Neutrophils Absolute Auto 8.1 K/mm3 (1.3-6.7); Neutrophils Percent Auto 68.7 % (45.5-73.1); Platelet Count Result 184 k/mm3 (150-375); Red Blood Count 4.92 M/mm3 (4.6-6.20); Red Cell Distribution Width 14.3 % (11.5-14.5); White Blood Count 11.8 K/mm3 (4.5-10.0)
[2023-12-05 14:39] LABS: Alanine Aminotransferase 22 U/L (6-50); Albumin Level 4.5 g/dL (3.5-5.1); Alkaline Phosphatase 72 U/L (38-126); Anion Gap 3 mmol/L (4-12); Aspartate Amino Transferase 24 U/L (17-59); Bilirubin,Total 0.9 mg/dL (0.2-1.3); Blood Urea Nitrogen 16 mg/dL (9-20); Calcium 9.8 mg/dL (8.4-10.2); Carbon Dioxide 31 mmol/L (22-30); Chloride 103 mmol/L (98-107); Cholesterol 148 mg/dL (0-200); Estimated Glomerular Filt Rate > 60; Glucose 96 mg/dL (65-110); HDL Direct 57 mg/dL; Potassium 4.6 mmol/L (3.4-5.0); Sodium 137 mmol/L (137-145); Triglycerides 115 mg/dL (<150)
[2023-12-05 14:51] LABS: LDL Cholesterol Direct 75 mg/dL
[2023-12-05 16:20] LABS: Free T4 Free Thyroxine 1.33 ng/mL (0.78-2.19)
== END 2023-12-05 14:00 | disposition home or self-care (01) ==
LOC: ANHLAB 14:01
PROVIDERS: PCP Internal Medicine; Visit Provider Internal Medicine
DX: Z13.29 Encounter for screening for other suspected endocrine disorder (principal); Z79.899 Other long term (current) drug therapy; I10 Essential (primary) hypertension; Z13.1 Encounter for screening for diabetes mellitus; E78.5 Hyperlipidemia, unspecified
CPT/HCPCS: 36415; 80053; 80061; 83036; 84439; 84443; 85025

== ENCOUNTER 2023-12-27 09:20 | Outpatient (CLI) | payer BC, SELFPAY ==
[2023-12-27 10:16] LABS: Influenza A QL RT-PCR Negative (Negative); Influenza B QL RT-PCR Negative (Negative); RSV RNA, RT-PCR Negative (Negative); SARS-CoV-2 RNA PCR Negative (Negative)
== END 2023-12-27 09:21 | disposition home or self-care (01) ==
LOC: ANHLAB 09:22
PROVIDERS: PCP Internal Medicine; Visit Provider Internal Medicine
DX: R50.9 Fever, unspecified (principal); R05.9 Cough, unspecified; R53.83 Other fatigue; Z20.822 Contact with and (suspected) exposure to COVID-19
CPT/HCPCS: 87637

== ENCOUNTER 2024-02-27 00:07 | Day surgery (SDC) | payer BC, SELFPAY ==
[2024-02-11 13:07] VITALS: BMI 31.1
[2024-02-27 08:18] VITALS: BP 109/80; PULSE 71; RESP 18; TEMP 36.1; O2SAT 99
[2024-02-27] MEDS: LACTATED RINGERS 1,000 ML 150 ML IV CONT (08:27)
--- NOTE | 2024-02-27 08:45 | WPDANESEPPF ---
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, ulcer of es Patient Data Age: 59 Gender: M Height: 1.73 m Weight: 91 kg Last Vital Signs Temp 36.1 C L 02/27/24 08:18 Pulse 71 02/27/24 08:18 Resp 18 02/27/24 08:18 BP 109/80 02/27/24 08:18 Pulse Ox 99 02/27/24 08:18 O2 Del Method Room Air 02/27/24 08:18 Allergies Allergy/AdvReac Type Severity Reaction Status Date / Time bee venom protein (honey bee) Allergy Severe Swelling Verified 02/27/24 08:15 Home Medications Medication Instructions Recorded Confirmed Type omega-3 fatty acids 1,000 mg 2,000 mg PO BID 02/23/20 02/11/24 History capsule (Fish Oil Concentrate) cyanocobalamin (vitamin B-12) 2,000 mcg PO DAILY 05/16/21 02/11/24 History 1,000 mcg tablet tamsulosin 0.4 mg capsule (Flomax) 0.4 mg PO DAILY #90 caps 10/12/22 02/11/24 Rx rosuvastatin 40 mg tablet See Rx Instructions .Route 08/30/23 02/11/24 Rx .COMPLEX #30 tabs Multivitamin (High level) BYMOUTH 12/05/23 12/05/23 History sildenafil 100 mg tablet 100 mg PO DAILY PRN sexual 12/05/23 12/05/23 Rx activity #10 tabs pantoprazole 40 mg tablet,delayed 40 mg PO DAILY 02/11/24 02/11/24 History release (Protonix) Patient hx anesthesia problems: none Family hx anesthesia problems: none Results Review: All pre-operative results and documents have been reviewed as part of the pre-operative evaluation. [facility] Past Medical History Medical History Acute encephalopathy Adjustment disorder with anxious mood Alcohol intoxication Alcohol withdrawal Alcohol withdrawal Alcohol withdrawal seizure Alcohol withdrawal seizure Alcoholism Anxiety Benign prostatic hyperplasia BMI 25.0-25.9,adult BMI 27.0-27.9,adult BMI 28.0-28.9,adult BMI 29.0-29.9,adult BMI 30.0-30.9,adult Cataract, right eye Cellulitis Clostridioides difficile diarrhea COVID-19 Depression Diaphragmatic hernia without obstruction or gangrene Diverticulosis of intestine, part unspecified, without perforation or abscess without bleeding DVT prophylaxis Eczema Encounter for routine adult health examination without abnormal findings Erectile dysfunction Erosive esophagitis Fatigue Follow up GI bleed Related to gastritis and esophageal ulcer. Hiatal hernia History of Clostridium difficile colitis Hospital discharge follow-up Hyperlipidemia Hypertension Hypocalcemia Hypoxia Iron deficiency anemia LOC (loss of consciousness) Marital estrangement Muscle cramps Other specified diseases of blood and blood-forming organs Pancytopenia May very well be related to alcohol abuse. Evaluated by Hematology in the past with no plans for bone marrow biopsy at this time. Peripheral neuropathy Peripheral neuropathy Personal history of COVID-19 Prostate cancer screening Resting tremor Seasonal affective disorder Seizure Septic shock Severe sepsis Suspected 2019-nCoV infection Testicular hypofunction Ulcer Vitamin D deficiency Vitamin D deficiency Withdrawal seizures Surgical History Surgical History History of bilateral cataract extraction History of colonoscopy History of esophagogastroduodenoscopy (EGD) (03/04/21) EGD per Dr. Christian showed reflux esophagitis, hiatal hernia, gastritis, duodenitis. S/P cataract surgery Family History Family History Mother Family history of lung cancer Family history of mental disorder Father Malignant neoplasm of prostate Family history of chronic obstructive pulmonary disease Family history of lung cancer Sibling Hypertension Family history of hypercholester
--- NOTE | 2024-02-27 09:32 | PM.HPGS ---
History of Present Illness History of Present Illness Consent: Risks, benefits, and alternatives have been discussed and questions answered. Patient agrees to proceed with procedure. 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 Review of Systems Review of Systems: All systems reviewed & are unremarkable except as noted in HPI and below PMFSH Past Medical History Medical History Acute encephalopathy Adjustment disorder with anxious mood Alcohol intoxication Alcohol withdrawal Alcohol withdrawal Alcohol withdrawal seizure Alcohol withdrawal seizure Alcoholism Anxiety Benign prostatic hyperplasia BMI 25.0-25.9,adult BMI 27.0-27.9,adult BMI 28.0-28.9,adult BMI 29.0-29.9,adult BMI 30.0-30.9,adult Cataract, right eye Cellulitis Clostridioides difficile diarrhea COVID-19 Depression Diaphragmatic hernia without obstruction or gangrene Diverticulosis of intestine, part unspecified, without perforation or abscess without bleeding DVT prophylaxis Eczema Encounter for routine adult health examination without abnormal findings Erectile dysfunction Erosive esophagitis Fatigue Follow up GI bleed Related to gastritis and esophageal ulcer. Hiatal hernia History of Clostridium difficile colitis Hospital discharge follow-up Hyperlipidemia Hypertension Hypocalcemia Hypoxia Iron deficiency anemia LOC (loss of consciousness) Marital estrangement Muscle cramps Other specified diseases of blood and blood-forming organs Pancytopenia May very well be related to alcohol abuse. Evaluated by Hematology in the past with no plans for bone marrow biopsy at this time. Peripheral neuropathy Peripheral neuropathy Personal history of COVID-19 Prostate cancer screening Resting tremor Seasonal affective disorder Seizure Septic shock Severe sepsis Suspected 2019-nCoV infection Testicular hypofunction Ulcer Vitamin D deficiency Vitamin D deficiency Withdrawal seizures Surgical History Surgical History History of bilateral cataract extraction History of colonoscopy History of esophagogastroduodenoscopy (EGD) (03/04/21) EGD per Dr. Christian showed reflux esophagitis, hiatal hernia, gastritis, duodenitis. S/P cataract surgery Family History Family History Mother Family history of lung cancer Family history of mental disorder Father Malignant neoplasm of prostate Family history of chronic obstructive pulmonary disease Family history of lung cancer Sibling Hypertension Family history of hypercholesterolemia Alcoholism Other Family history of cardiovascular disease Social History Social History Social History: The patient lives in his own home in [place]. He has 2 grown children. Former smoker. Longstanding history of alcoholism, consuming half of a fifth of vodka most days. Denies illicit substance use. 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 He does niYancy keys, as his surrogate decision maker. Code status: Full code. Smoking packs per day: 0.5 Smoking cigarettes per day: 10.0 Years smoked: 18 Smoking pack-years: 9.00 Smoking status: Former smoker Tobacco type: cigarettes Additional smoking assessment comments: social smoker Alcohol intake: former Drinks per week: 20 Alcohol use details: history of etoh abuse, stopped this year Sep 2021 Substance use: never Substance use type: does not use Lack of Transportation: No Lack of Food: Never True Current Housing: I Have Housing Concerned About Future Housing: No Difficulty Paying Gas/Electric Bills: No Difficulty Paying for Meds: No Currently Unemployed: No [employer]
[2024-02-27] MEDS: BENZOCAINE (*SP) 60 ML SPRAY CAN (HURRICAINE) 1 SPRAY MUCOUS MEM (09:34)
[2024-02-27 09:43] VITALS: BP 108/76; PULSE 70; RESP 18; O2SAT 96
[2024-02-27 09:53] VITALS: BP 118/79; PULSE 65; RESP 14; O2SAT 96
[2024-02-27 10:03] VITALS: BP 113/71; PULSE 61; RESP 18; O2SAT 97
--- NOTE | 2024-02-27 10:24 | SUR.PHASEII ---
Discharge delay due to ride conflict.
== END 2024-02-27 10:22 | disposition home or self-care (01) ==
PROVIDERS: PCP Internal Medicine; Visit Provider Internal Medicine Gastroenterology
PROC: 0DJ08ZZ Inspection of Upper Intestinal Tract, Via Natural or Artificial Opening Endoscopic (ICD-10-PCS; CPT 43235; principal; 2024-02-27 09:30)
DX: K22.70 Barrett's esophagus without dysplasia (principal); K21.9 Gastro-esophageal reflux disease without esophagitis; I10 Essential (primary) hypertension; E78.5 Hyperlipidemia, unspecified; E83.51 Hypocalcemia; D50.9 Iron deficiency anemia, unspecified; F41.9 Anxiety disorder, unspecified; N40.0 Benign prostatic hyperplasia without lower urinary tract symptoms; F32.A Depression, unspecified; N52.9 Male erectile dysfunction, unspecified; R09.02 Hypoxemia; G25.2 Other specified forms of tremor; G40.89 Other seizures; K57.90 Diverticulosis of intestine, part unspecified, without perforation or abscess without bleeding; Z98.890 Other specified postprocedural states; Z87.891 Personal history of nicotine dependence; Z86.718 Personal history of other venous thrombosis and embolism; Z80.1 Family history of malignant neoplasm of trachea, bronchus and lung; Z80.42 Family history of malignant neoplasm of prostate; Z82.49 Family history of ischemic heart disease and other diseases of the circulatory system
CPT/HCPCS: 43239; 88305; J2704; J7120

== ENCOUNTER 2024-07-15 08:42 | Outpatient (CLI) | payer BC, SELFPAY ==
--- NOTE | ~2024-07-15 | XR_ITS ---
XR abdomen/kub 1V Ordering provider: Fernie Fulton MD History: . R35.0 - Frequency of micturition/ RIGHT FLANK PAIN . Comparison: None. FINDINGS: BOWEL: Nonobstructive bowel gas pattern. ORGANOMEGALY: None. SIGNIFICANT PATHOLOGIC CALCIFICATIONS: Tiny stone is seen in the right renal area. OTHER: No free air is seen under the diaphragm. IMPRESSION: NO ACUTE ABDOMINAL FINDINGS. Right kidney stone. Reviewed, dictated and finalized at location A. NURSE
[2024-07-15 10:18] LABS: Add Urine Microscopic? YES; Appearance Urine Clear (Clear); Bacteria Urine None Seen /hpf; Bilirubin Urine Negative (Negative); Blood Urine Negative (Negative); Color Urine Dark Yellow (Yellow); Glucose Urine UA Negative (Negative); Ketones Urine Negative (Negative); Leukocyte Esterase Ur Negative LEU/UL (Negative); Need Manual Microscopic Reviewed; Nitrate Urine Positive (Negative); Non Pathogenic Casts 0-2; Protein Urine Negative (Negative); RBC Urine 0-2 /hpf (0-2); Squamous Epithelial Cell Urine None Seen /hpf (Few); WBC Urine 0-5 /hpf (0-3); pH Urine 6.5 (5.0-9.0)
== END 2024-07-15 08:43 | disposition home or self-care (01) ==
PROVIDERS: PCP Internal Medicine; Visit Provider Internal Medicine
DX: R35.0 Frequency of micturition (principal); N20.0 Calculus of kidney
CPT/HCPCS: 74018; 81001; 87086

== ENCOUNTER 2024-07-17 06:36 | Outpatient (CLI) | payer BC, SELFPAY ==
--- NOTE | ~2024-07-17 | CT_ITS ---
Non-contrast CT scan of the Abdomen and Pelvis Clinical indication: Renal stone Technique: 2.5 mm axial scans were obtained through the abdomen and pelvis without intravenous or or al contrast. Dose reduction technique was used on this scan by utilizing automated exposure control a nd iterative reconstruction technique. The dose-length product (DLP) was 318.71 mGy-cm. COMPARISON: 03/02/2021 Findings: Images through the lung bases reveal linear atelectasis or scarring right middle lobe and left lower lobe. Moderate to large hiatal hernia present. There is no evidence of renal or ureteral calculi. The kidneys and the ureters are nondilated. The liver, spleen, pancreas, and adrenals appear normal. Multiple small calcified gallstones are pres ent. There is no aortic aneurysm. There is no evidence of bowel obstruction. Images through the pelvis were performed. There is no evidence of ascites or lymphadenopathy. Urinary bladder unremarkable. No pelvic mass seen. Impression: No renal, ureteral, or bladder stone. No hydronephrosis. Moderate to large hiatal hernia. Cholelithiasis. Reviewed, dictated and finalized at [facility]. [facility]OOK Impression: No renal, ureteral, or bladder stone. No hydronephrosis. Moderate to large hiatal hernia. Cholelithiasis.
== END 2024-07-17 06:37 | disposition home or self-care (01) ==
PROVIDERS: PCP Internal Medicine; Visit Provider Internal Medicine
DX: K44.9 Diaphragmatic hernia without obstruction or gangrene (principal); K80.20 Calculus of gallbladder without cholecystitis without obstruction; N20.0 Calculus of kidney
CPT/HCPCS: 74176

== ENCOUNTER 2024-08-27 15:45 | Emergency (ER) | payer BC, SELFPAY ==
[2024-08-27] VITALS (9 sets, daily range): BP systolic 120–139; BP diastolic 59–96; PULSE 118–156; RESP 12–19; TEMP 37.1; O2SAT 91–100
--- NOTE | 2024-08-27 16:00 | ECG_ITS ---
Test Date: 2024-08-27 19:32:27 Measurements Intervals [place] Rate: 134 P: 51 KS: 143 QRS: 36 QRSD: 93 T: 21 QT: 311 QTc: 465 Interpretive Statements SINUS TACHYCARDIA POSSIBLE INFERIOR MYOCARDIAL INFARCTION , PROBABLY OLD [30 ms Q WAVE IN II/aVF] ABNORMAL RHYTHM ECG No previous ECG available for comparison Electronically Signed On 08-27-2024 20:38:09 MANAGER HOSPITALITY by Kee Bang M.D.
--- NOTE | 2024-08-27 16:13 | ECG_ITS ---
Test Date: 2024-08-27 16:13:10 Measurements Intervals [place] Rate: 126 P: 34 PA: 144 QRS: 34 QRSD: 100 T: 17 QT: 334 QTc: 484 Interpretive Statements SINUS TACHYCARDIA PROBABLE INFERIOR MYOCARDIAL INFARCTION , PROBABLY OLD [35 ms Q WAVE IN II/aVF] ABNORMAL ECG Electronically Signed On 08-29-2024 16:49:14 TECHNICAL BUSINESS ANALYST by Lucas Stanton M.D.
[2024-08-27] MEDS: PANTOPRAZOLE SODIUM IV 40 MG VIAL 80 MG IV PUSH (16:46)
[2024-08-27] MEDS: OCTREOTIDE ACETATE 50 MCG/ML VIAL IV PUSH (16:46)
--- NOTE | 2024-08-27 16:50 | ED.GENADULT ---
HPI - General Adult General Chief complaint: Chest Pain Stated complaint: syncope, n/v/d x 3 days Time Seen by Provider: 08/27/24 15:47 History of Present Illness HPI narrative: 59-year-old male presenting to the emergency department for evaluation for hematemesis and dark tarry stool over the past 3 days. Patient also reports associated fatigue. Patient does have a prior history of alcohol abuse and Johnson's esophagus. Patient is unsure if he has ever been diagnosed with esophageal varices. Related Data Home Medications ?Medication ?Instructions ?Recorded ?Confirmed ?Last Taken ?Type omega-3 fatty acids 1,000 mg 2,000 mg PO BID 02/23/20 06/04/24 05/20/22 History capsule (Fish Oil Concentrate) cyanocobalamin (vitamin B-12) 2,000 mcg PO DAILY 05/16/21 06/04/24 05/20/22 History 1,000 mcg tablet Multivitamin (High level) BYMOUTH 12/05/23 06/04/24 Unknown History Allergies Allergy/AdvReac Type Severity Reaction Status Date / Time bee venom protein (honey bee) Allergy Severe Swelling Verified 08/27/24 16:16 Review of Systems Review of Systems: All systems reviewed & are unremarkable except as noted in HPI and below PMFSH Past Medical History Medical History Acute encephalopathy Adjustment disorder with anxious mood Alcohol intoxication Alcohol withdrawal Alcohol withdrawal Alcohol withdrawal seizure Alcohol withdrawal seizure Alcoholism Anxiety Benign prostatic hyperplasia BMI 25.0-25.9,adult BMI 27.0-27.9,adult BMI 28.0-28.9,adult BMI 29.0-29.9,adult BMI 30.0-30.9,adult Cataract, right eye Cellulitis Clostridioides difficile diarrhea COVID-19 Depression Diaphragmatic hernia without obstruction or gangrene Diverticulosis of intestine, part unspecified, without perforation or abscess without bleeding DVT prophylaxis Eczema Encounter for routine adult health examination without abnormal findings Erectile dysfunction Erosive esophagitis Fatigue Follow up GI bleed Related to gastritis and esophageal ulcer. Hiatal hernia History of Clostridium difficile colitis Hospital discharge follow-up Hyperlipidemia Hypertension Hypocalcemia Hypoxia Iron deficiency anemia LOC (loss of consciousness) Marital estrangement Muscle cramps Other specified diseases of blood and blood-forming organs Pancytopenia May very well be related to alcohol abuse. Evaluated by Hematology in the past with no plans for bone marrow biopsy at this time. Peripheral neuropathy Peripheral neuropathy Personal history of COVID-19 Prostate cancer screening Resting tremor Seasonal affective disorder Seizure Septic shock Severe sepsis Suspected 2019-nCoV infection Testicular hypofunction Ulcer Vitamin D deficiency Vitamin D deficiency Withdrawal seizures Surgical History Surgical History History of bilateral cataract extraction History of colonoscopy History of esophagogastroduodenoscopy (EGD) (03/04/21) EGD per Dr. Christian showed reflux esophagitis, hiatal hernia, gastritis, duodenitis. S/P cataract surgery Family History Family History Mother Family history of lung cancer Family history of mental disorder Father Malignant neoplasm of prostate Family history of chronic obstructive pulmonary disease Family history of lung cancer Sibling Hypertension Family history of hypercholesterolemia Alcoholism Other Family history of cardiovascular disease Social History Social History Social History: The patient lives in his own home in [place]. He has 2 grown children. Former smoker. Longstanding history of alcoholism, consuming half of a fifth of vodka most days. Denies illicit substance use. 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 He does Yancy orourke, as his surrogate decision maker. Code status: Full code. Smoking packs per day: 0.5 Smoking cigarettes per day: 10.0 Years smoked: 18 Smoking pack-years: 9.00 Smoking status: Former smoker Tobacco type: cigarettes Additional smoking assessment comments: social smoker Alcohol intake: former Drinks per week: 20 Alcohol use details: history of etoh abuse, stopped this year Sep 2021 Substance use: never Substance use type: does not use Lack of Transportation: No Lack of Food: Never True Current Housing: I Have Housing Concerned About Future Housing: No Difficulty Paying Gas/Electric Bills: No Difficulty Paying for Meds: No Currently Unemployed: No Education: Master's Degree or Higher Living arrangements: alone Occupation/Education: occupation Gender identity (if verbalized by the patient): Male Spiritual care concerns: No Exam Narrative: APPEARANCE: Well appearing, no pain, no distress, well-nourished. HEAD: normocephalic, atraumatic. EYES: PERRLA/EOMI, conjunctivae clear. NOSE: Normal no drainage EARS:TMS clear with good light reflex. THROAT: Pharynx clear, no exudate. NECK: Supple. No adenopathy, no masses. RESPIRATORY: Airway patent, respirations nonlabored. Clear to auscultation bilaterally, no rales, rhonchi, wheezing. CARDIOVASCULAR: Regular rate and rhythm without murmurs rubs or gallops. ABDOMINAL: Soft, nontender, nondistended, normal bowel sounds MUSCULOSKELETAL: Moves all extremities. Strength/ROM intact, No edema, No calf tenderness. Rectal exam: Hemoccult positive on the RHINA NEURO: Alert. Cranial nerves II through XII intact. SKIN: Warm, dry. Normal Color Course Vital Signs Vital signs: Vital Signs Temperature 98.8 F 08/27/24 16:00 Pulse Rate 125 H 08/27/24 16:00 Respiratory Rate 17 08/27/24 16:00 Blood Pressure 139/96 H 08/27/24 16:00 Pulse Oximetry 95 08/27/24 16:00 Oxygen Delivery Room Air 08/27/24 16:00 Temperature 98.1 F 08/28/24 07:23 Pulse Rate 109 H 08/28/24 15:30 Respiratory Rate 22 H 08/28/24 10:23 Blood Pressure 139/84 08/28/24 15:30 Pulse Oximetry 99 08/28/24 10:23 Oxygen Delivery Room Air 08/27/24 16:16 Medical Decision Making [facility] Narrative Medical decision making narrative: 59-year-old male presenting to the emergency department for evaluation for melena and hematemesis. Patient had no further hematemesis in the emergency department. Patient was Hemoccult positive on the digital rectal exam. Patient's white blood count was 14.3 and patient's hemoglobin decreased to 8.9. He no major changes on the patient's CMP, troponin is not elevated, no evidence of urinary tract infection on the urinalysis. Patient's blood test is B positive. Due to concern for GI bleed with esophageal varices patient was started on both Protonix and octreotide. With the elevated white blood cell count and possible underlying liver disease patient was also started on Rocephin. Case was [facility] with Dr. Duran at [facility] for [facility] and patient was accepted for transfer. Patient and family were updated on the results of workup treatment plan and plan for transfer. All questions concerns were addressed. Differential Diagnosis Differential Diagnosis: Anemia, upper GI bleeding, lower GI bleed, alcohol intoxication, cirrhosis, esophageal varices, Johnson's esophagus Vital Signs Vital Signs: Vital Signs Temperature 98.8 F 08/27/24 16:00 Pulse Rate 125 H 08/27/24 16:00 Respiratory Rate 17 08/27/24 16:00 Blood Pressure 139/96 H 08/27/24 16:00 Pulse Oximetry 95 08/27/24 16:00 Oxygen Delivery Room Air 08/27/24 16:00 Temperature 98.1 F 08/28/24 07:23 Pulse Rate 109 H 08/28/24 15:30 Respiratory Rate 22 H 08/28/24 10:23 Blood Pressure 139/84 08/28/24 15:30 Pulse Oximetry 99 08/28/24 10:23 Oxygen Delivery Room Air 08/27/24 16:16 Lab Data Lab results reviewed: Yes I reviewed the patient's lab results. 08/28/24 05:10 08/27/24 16:22 Labs: Lab Results 08/27/24 08/27/24 08/27/24 Range/Units 16:22 17:58 19:39 WBC 14.3 H (4.5-10.0) K/mm3 RBC 2.69 L (4.6-6.20) M/mm3 Hgb 8.9 L D (14.0-18.0) g/dL Hct 25.4 L (42.0-52.0) % MCV 94.4 (80-100) fl MCH 33.1 (26-34) pg MCHC 35.0 (32-36) g/dl RDW 13.6 (11.5-14.5) % Plt Count 49 L D (150-375) k/mm3 MPV 10.7 H (7.4-10.4) fl Immature Gran % (Auto) Not Reportable Neut % (Auto) Not Reportable Lymph % (Auto) Not Reportable [place] % (Auto) Not Reportable Eos % (Auto) Not Reportable Baso % (Auto) Not Reportable Lymph # (Auto) Not Reportable [place] # (Auto) Not Reportable Eos # (Auto) Not Reportable Baso # (Auto) Not Reportable Abs Immat Gran (auto) Not Reportable Absolute Neuts (auto) Not Reportable Absolute Nucleated RBC Not Reportable Total Counted 100 Neutrophils % (Manual) 92 H (46-73) % Band Neutrophils % 1 (0-6) % Lymphocytes % (Manual) 3.0 L (18-44) % Monocytes % (Manual) 4 (3-9) % Nucleated RBC % Not Reportable Abs Neuts (Manual) 13.29 H (1.3-6.7) K/mm3 Abs Lymphs (Manual) 0.42 L (1.1-4.5) K/mm3 Abs Monocytes (Manual) 0.57 (0.1-0.90) K/mm3 Platelet Estimate Decreased (Adequate) % Immature Plt Fraction 8.0 (0.9-11.2) % Schistocytes None seen PT 14.1 (11.1-14.7) Seconds INR 1.1 APTT 23.6 (22.3-36.8) Seconds Sodium 139 (137-145) mmol/L Potassium 3.3 L (3.4-5.0) mmol/L Chloride 98 (98-107) mmol/L Carbon Dioxide 23 (22-30) mmol/L Anion Gap 18 H (4-12) mmol/L BUN 46 H D (9-20) mg/dL Creatinine 0.90 (0.7-1.3) mg/dL Estim Creat Clear Calc 73 ml/min Estimated GFR > 60 (59 - ) Glucose 170 H (65-110) mg/dL Calcium 8.3 L (8.4-10.2) mg/dL Total Bilirubin 0.9 (0.2-1.3) mg/dL AST 57 (17-59) U/L ALT 42 (6-50) U/L Alkaline Phosphatase 53 (38-126) U/L Troponin I < 0.012 0.014 (0.000-0.034) ng/mL NT-Pro-B Natriuret Pep < 20 (19.9-100) pg/mL Total Protein 7.0 (6.3-8.2) g/dL Albumin 4.3 (3.5-5.1) g/dL Urine Color Yellow (Yellow) Urine Appearance Clear (Clear) Urine pH 5.5 (5.0-9.0) Ur Specific [place] 1.022 (1.001-1.035) Urine Protein 1+ H (Negative) mg/dL Urine Glucose (UA) Negative (Negative) mg/dL Urine Ketones 3+ H (Negative) mg/dL Ur Blood (Man) Negative (Negative) Urine Nitrate Negative (Negative) Urine Bilirubin Negative (Negative) Urine Urobilinogen 0.2 (<2.0) mg/dL Leukocyte Esterase Rfl Negative (Negative) MARGARET/UL Urine RBC 0-2 (0-2) /hpf Urine WBC 0-5 (0-3) /hpf Ur Squamous Epith Cells None seen (Few) /hpf Urine Bacteria None seen /hpf Urine Casts 0-2 Ethyl Alcohol 156 (<10) mg/dL Blood Type B Positive Antibody Screen Negative 08/28/24 08/28/24 Range/Units 00:42 05:10 WBC (4.5-10.0) K/mm3 RBC (4.6-6.20) M/mm3 Hgb 8.2 L 8.0 L (14.0-18.0) g/dL Hct 24.2 L 23.3 L (42.0-52.0) % MCV (80-100) fl MCH (26-34) pg MCHC (32-36) g/dl RDW (11.5-14.5) % Plt Count (150-375) k/mm3 MPV (7.4-10.4) fl Immature Gran % (Auto) Neut % (Auto) Lymph % (Auto) [place] % (Auto) Eos % (Auto) Baso % (Auto) Lymph # (Auto) [place] # (Auto) Eos # (Auto) Baso # (Auto) Abs Immat Gran (auto) Absolute Neuts (auto) Absolute Nucleated RBC Total Counted Neutrophils % (Manual) (46-73) % Band Neutrophils % (0-6) % Lymphocytes % (Manual) (18-44) % Monocytes % (Manual) (3-9) % Nucleated RBC % Abs Neuts (Manual) (1.3-6.7) K/mm3 Abs Lymphs (Manual) (1.1-4.5) K/mm3 Abs Monocytes (Manual) (0.1-0.90) K/mm3 Platelet Estimate (Adequate) % Immature Plt Fraction (0.9-11.2) % Schistocytes PT (11.1-14.7) Seconds INR APTT (22.3-36.8) Seconds Sodium (137-145) mmol/L Potassium (3.4-5.0) mmol/L Chloride (98-107) mmol/L Carbon Dioxide (22-30) mmol/L Anion Gap (4-12) mmol/L BUN (9-20) mg/dL Creatinine (0.7-1.3) mg/dL Estim Creat Clear Calc ml/min Estimated GFR (59 - ) Glucose (65-110) mg/dL Calcium (8.4-10.2) mg/dL Total Bilirubin (0.2-1.3) mg/dL AST (17-59) U/L ALT (6-50) U/L Alkaline Phosphatase (38-126) U/L Troponin I (0.000-0.034) ng/mL NT-Pro-B Natriuret Pep (19.9-100) pg/mL Total Protein (6.3-8.2) g/dL Albumin (3.5-5.1) g/dL Urine Color (Yellow) Urine Appearance (Clear) Urine pH (5.0-9.0) Ur Specific [place] (1.001-1.035) Urine Protein (Negative) mg/dL Urine Glucose (UA) (Negative) mg/dL Urine Ketones (Negative) mg/dL Ur Blood (Man) (Negative) Urine Nitrate (Negative) Urine Bilirubin (Negative) Urine Urobilinogen (<2.0) mg/dL Leukocyte Esterase Rfl (Negative) MARGARET/UL Urine RBC (0-2) /hpf Urine WBC (0-3) /hpf Ur Squamous Epith Cells (Few) /hpf Urine Bacteria /hpf Urine Casts Ethyl Alcohol (<10) mg/dL Blood Type Antibody Screen Critical Care Time Critical Care Time Critical Care Time: Yes Total Critical Care Time: 45 Discharge Plan Discharge Clinical Impression: Acute upper GI bleed Patient Disposition: Acute Care Hospital Condition: Serious Patient Language: Chilean Prescriptions: No Action Multivitamin (High level) BYMOUTH tadalafil [Cialis] 5 mg tablet 5 mg PO DAILY Qty: 30 2RF omega-3 fatty acids [Fish Oil Concentrate] 1,000 mg capsule 2,000 mg PO BID cyanocobalamin (vitamin B-12) 1,000 mcg tablet 2,000 mcg PO DAILY pantoprazole [Protonix] 40 mg tablet,delayed release (DR/EC) 40 mg PO Q12H Qty: 60 12RF rosuvastatin 40 mg tablet See Rx Instructions .ROUTE .COMPLEX Qty: 30 2RF Dose Instruction: TAKE 1 TABLET BY MOUTH DAILY Rx Instructions: TAKE 1 TABLET BY MOUTH DAILY sildenafil 100 mg tablet 100 mg PO DAILY PRN (Reason: sexual activity) Qty: 10 0RF Rx Instructions: administer 30 minutes to 4 hours before activity tamsulosin [Flomax] 0.4 mg capsule 0.4 mg PO DAILY Qty: 90 1RF levofloxacin 500 mg tablet 500 mg PO DAILY Qty: 7 0RF tizanidine 4 mg tablet 4 mg PO QHS PRN (Reason: muscle spasticity) Qty: 40 0RF meloxicam 7.5 mg tablet 7.5 mg PO DAILY Qty: 30 0RF pantoprazole 40 mg tablet,delayed release (DR/EC) See Rx Instructions .ROUTE .COMPLEX Qty: 90 0RF Dose Instruction: TAKE 1 TABLET BY MOUTH EVERY DAY AT BEDTIME Rx Instructions: TAKE 1 TABLET BY MOUTH EVERY DAY AT BEDTIME Follow-up/Referrals: Fernie Fulton MD [Primary Care Provider] -
[2024-08-27 16:53] LABS: Hematocrit 25.4 % (42.0-52.0); Hemoglobin 8.9 g/dL (14.0-18.0); Mean Corpuscular Hemoglobin 33.1 pg (26-34); Mean Corpuscular Volume 94.4 fl (80-100); Mean Platelet Volume 10.7 fl (7.4-10.4); Platelet Count Result 49 k/mm3 (150-375); Red Blood Count 2.69 M/mm3 (4.6-6.20); Red Cell Distribution Width 13.6 % (11.5-14.5); White Blood Count 14.3 K/mm3 (4.5-10.0)
[2024-08-27 17:01] LABS: Alanine Aminotransferase 42 U/L (6-50); Albumin Level 4.3 g/dL (3.5-5.1); Alkaline Phosphatase 53 U/L (38-126); Anion Gap 18 mmol/L (4-12); Aspartate Amino Transferase 57 U/L (17-59); Bilirubin,Total 0.9 mg/dL (0.2-1.3); Blood Urea Nitrogen 46 mg/dL (9-20); Calcium 8.3 mg/dL (8.4-10.2); Carbon Dioxide 23 mmol/L (22-30); Chloride 98 mmol/L (98-107); Estimated CRCL calculation 73 ml/min; Estimated Glomerular Filt Rate > 60; Ethanol 156 mg/dL (<10); Glucose 170 mg/dL (65-110); Potassium 3.3 mmol/L (3.4-5.0); Sodium 139 mmol/L (137-145)
[2024-08-27 17:05] LABS: INR 1.1; Prothrombin Time 14.1 Seconds (11.1-14.7)
[2024-08-27 17:06] LABS: Partial Thromboplastin Time 23.6 Seconds (22.3-36.8)
[2024-08-27 17:12] LABS: NT Pro B Type Natriuretic Pept < 20 pg/mL (19.9-100); Troponin I < 0.012 ng/mL (0.000-0.034)
[2024-08-27 17:16] LABS: Band Neutrophils Percent 1 % (0-6); Lymphocytes Absolute Manual 0.42 K/mm3 (1.1-4.5); Monocytes Absolute Manual 0.57 K/mm3 (0.1-0.90); Monocytes Percent Manual 4 % (3-9); Neutrophils Absolute Manual 13.29 K/mm3 (1.3-6.7); Neutrophils Percent Manual 92 % (46-73); Platelet Estimate Decreased (Adequate); Schistocytes None Seen; Total Cells Counted 100
[2024-08-27 18:12] LABS: Add Urine Microscopic? YES; Appearance Urine Clear (Clear); Bacteria Urine None Seen /hpf; Bilirubin Urine Negative (Negative); Blood Urine Negative (Negative); Color Urine Yellow (Yellow); Glucose Urine UA Negative (Negative); Ketones Urine 3+ mg/dL (Negative); Leukocyte Esterase Ur Negative LEU/UL (Negative); Nitrate Urine Negative (Negative); Non Pathogenic Casts 0-2; Protein Urine 1+ mg/dL (Negative); RBC Urine 0-2 /hpf (0-2); Specific Grav Ur 1.022 (1.001-1.035); Squamous Epithelial Cell Urine None Seen /hpf (Few); Urobilinogen Urine 0.2 mg/dL (<2.0); WBC Urine 0-5 /hpf (0-3); pH Urine 5.5 (5.0-9.0)
[2024-08-27 20:05] LABS: Troponin I 0.014 ng/mL (0.000-0.034)
[2024-08-27] MEDS: ONDANSETRON INJ 4 MG/2 ML VIAL IV PUSH (20:31)
[2024-08-27] MEDS: MORPHINE SULFATE (*CRX) 4 MG/ML INJ IV PUSH (20:31)
--- NOTE | 2024-08-27 21:22 | PC.NURSE ---
[facility] transfer center called back for update on patient and vitals, states they will call back in the morning, and will hopefully have a bed by then.
[2024-08-27] MEDS: PROCHLORPERAZINE EDISYLATE 10 MG/2 ML VIAL IV PUSH (21:36)
[2024-08-27] MEDS: HYDROmorphone HCL INJ (*CRX) 1 MG/ML SYR IV PUSH (21:37)
[2024-08-28] VITALS (15 sets, daily range): BP systolic 122–152; BP diastolic 59–88; PULSE 109–152; RESP 14–22; TEMP 36.7; O2SAT 92–99
--- NOTE | 2024-08-28 00:11 | PC.NURSE ---
Patient had an episode of bloody stool. Patient states he is extremely anxious, tremors noted. EDP made aware and medication ordered. See MAR.
[2024-08-28] MEDS: LORazepam INJ (*CRX) 2 MG/ML VIAL 1 MG IV PUSH ×3 (00:15→13:02)
--- NOTE | 2024-08-28 00:31 | ECG_ITS ---
Test Date: 2024-08-28 00:40:56 Measurements Intervals [place] Rate: 152 P: 0 ID: 0 QRS: 23 QRSD: 93 T: 55 QT: 329 QTc: 524 Interpretive Statements ATRIAL TACHYCARDIA/FLUTTER POSSIBLE ANTERIOR MYOCARDIAL INFARCTION , OF INDETERMINATE AGE [30 ms Q WAVE IN V3/V4, OR R < 0.2 mV IN V4] NONSPECIFIC ST ABNORMALITY ABNORMAL ECG Electronically Signed On 08-28-2024 08:42:45 GLASS FURNACE TENDER by Lucas Stanton M.D.
[2024-08-28] MEDS: SODIUM CHLORIDE 0.9% IV 1,000 ML 999 ML IV CONT ×2 (00:36→12:58)
[2024-08-28 01:18] LABS: Hematocrit 24.2 % (42.0-52.0); Hemoglobin 8.2 g/dL (14.0-18.0)
[2024-08-28] MEDS: dilTIAZem HCl INJ 25 MG/5 ML VIAL 10 MG IV PUSH (02:08)
[2024-08-28] MEDS: dilTIAZem 100 MG/100 ML 100 MG/100 ML BAG IV CONT (02:12)
[2024-08-28 06:53] LABS: Hematocrit 23.3 % (42.0-52.0)
[2024-08-28] MEDS: dilTIAZem 100 MG/100 ML 100 MG/100 ML BAG 15 MG (08:20)
--- NOTE | 2024-08-28 09:38 | ECG_ITS ---
Test Date: 2024-08-28 09:55:14 Measurements Intervals [place] Rate: 123 P: -3 VA: 141 QRS: 21 QRSD: 87 T: 7 QT: 357 QTc: 511 Interpretive Statements SINUS TACHYCARDIA NONSPECIFIC T-WAVE ABNORMALITY ABNORMAL ECG Electronically Signed On 08-28-2024 12:06:42 LAY OUT INSPECTOR by Lucas Stanton M.D.
[2024-08-28] MEDS: PANTOPRAZOLE SODIUM IV 80 MG in SODIUM CHLORIDE 0.9% IV 500 ML 50 MG IV CONT (13:05)
--- NOTE | 2024-08-28 19:09 | PC.NURSE ---
Authorization for patient transport original was not sent with patient information. Copy was sent. Called and spoke with MOOSE Cannon at [facility]. Pt was transferred on Dilt drip at 15. Pantoprazole was held during transport. Nurse was notified.
--- OUTSIDE RECORDS SUMMARY | 2024-09-03 20:21 | XMS_ITS | Clinical Summary ---
Author Organization [facility] Address [address] [place] [address] Care Team Providers Care Cook Sauce Name Role Phone Fernie Fulton MD Primary Care Provider [phone] Fernie Fulton MD Unavailable [phone] Allergies Active Allergy Reactions Criticality Noted Date Comments Bee Sting Kit Medications multivitamin with folic acid 400 mcg tablet Take 1 tablet by mouth daily Active tiZANidine (ZANAFLEX) 4 mg tablet Take 1 tablet (4 mg total) by mouth nightly as needed for muscle spasms Active rosuvastatin (CRESTOR) 40 mg tablet Take 1 tablet (40 mg total) by mouth daily Active tamsulosin (FLOMAX) 0.4 mg extended release capsule Take 1 capsule (0.4 mg total) by mouth daily Active magnesium oxide (MAG-OX) 400 mg (241.3 mg elemental magnesium) tabletIndicati ons:hypomagnes emia Take 0.5 tablets (200 mg total) by mouth daily Active vancomycin (VANCOCIN) 125 mg capsuleIndicat ions:Clostridi oides difficile infection Take 1 capsule (125 mg total) by mouth every 6 (six) hours for 36 doses 36 capsule 09/02/[address] (PROTONIX) 40 mg EC tablet Take 1 tablet (40 mg total) by mouth 2 (two) times a day 09/02/20 24 Active nebivolol (BYSTOLIC) 5 mg tablet take 1 tablet by oral route every day 0 0 04/13/20 16 024 Discontinued meloxicam (MOBIC) 7.5 mg tablet Take 1 tablet (7.5 mg total) by mouth daily 024 Discontinued(St op Taking at Discharge) pantoprazole DR (PROTONIX) 40 mg EC tablet Take 1 tablet (40 mg total) by mouth 3 (three) times a day 024 Discontinued Active Problems Problem Noted Date Diagnosed Date Acute GI bleeding 08/28/2024 Hypercholesterolemia 08/28/2024 Colitis 08/27/2024 Benign hypertension 12/15/2015 Overview (12/07/2016): HTN (hypertension), benign [place] IV diagnosis 12/15/2015 Overview (12/07/2016): Psychosocial stressors Dyslipidemia 12/15/2015 Overview (12/09/2016): Mixed dyslipidemia Abnormal echocardiography 12/15/2015 Overview (12/09/2016): Abnormal stress echocardiogram Encounters Date Type Department Care Team Description 4 10:57 AM RELATIONS DIRECTOR Anesthesia Event [facility] [address] [place] [address] [phone] Dean Negrete MD 4 10:45 AM RELATIONS DIRECTOR - 4 11:15 AM [facility] Surgery [facility] [address] [place] [phone] Cristo Funes MD COLON BIOPSY 4 10:07 AM RELATIONS DIRECTOR Anesthesia Event [facility] [address] [place] [address] [phone] Terrell Jung DO 4 10:00 AM RELATIONS DIRECTOR - 4 10:30 AM [facility] Surgery [facility] [address] [place] [phone] Cristo Funes MD ESOPHAGOGASTRODUODENOSCOPY BIOPSY 4 4:30 PM RELATIONS DIRECTOR - 4 1:31 PM RELATIONS DIRECTOR Hospital Encounter [address] [place] [address] Ping Lopez DO Dehaan, Kevin Patrick, MD Khan, Fatima A., MD Smelser, Katelyn P., MD Acute GI bleeding (Primary Dx); Colitis Discharge Disposition: Discharge to home or self care 4 Orders Only [facility] Hospitalists [facility] [place] [phone] Madie Duran MD from Last 3 Months Medical History Medical History Date Comments HTN (hypertension) HLD (hyperlipidemia) Alcohol use Johnson's esophagus Family History Medical History Relation Name Comments Other Brother 2 Alive and well; Other Father Unknown; Other Mother Unknown; Relation Name Status Comments Brother 1 Alive Brother 2 Father Mother Social History Tobacco Use Types Packs/Day Years Used Date Smoking Tobacco: Former Cigarettes 0 04/03/1997 - 1978 Smokeless Tobacco: Never Tobacco Cessation:Counseling Given: No Alcohol Use Standard Drinks/Week Comments Yes 0 (1 standard drink = 0.6 oz pur e alcohol) [facility] Utilities Answer Date Recorded In the past 12 months has [employer], gas, oil, or water ooma threatened to shut off services in your home? No 09/01/2024 Social Connection and Isolation Panel [NHANES] A nswer Date Recorded In a typical week, how many times do you talk on the phone with family, friends, or neighbors? Three times a week 09/01/20 How often do you get togethe r with friends or relatives? Twice a week 09/01/2024 Attends [employer] Services Not on file 09/01 Active Member of Clubs or Organizations Not on f ile 09/01/2024 How often do you attend meet ings of the clubs or organizations you belong to? 1 to 4 times per year 09/01/2024 Are you , , di vorced, , never , or living with a partner? Living with partner 09/01/2024 Overall Financial Resource Strain (CARDIA) Answe r Date Recorded How hard is it for you to pa y for the very basics like food, housing, medical care, and heating? Not very hard 09/01/2024 Hunger Vital Sign Answer Date Recorded Within the past 12 months, y ou worried that your food would run out before you got the money to buy more. Never true 09/01/20 24 Within the past 12 months, t he food you bought just didn't last and you didn't have money to get more. Never true 09/01/2024 PRAPARE - Transportation Answer Date Re corded In the past 12 months, has l ack of transportation kept you from medical appointments or from getting medications? No 08/05 In the past 12 months, has l ack of transportation kept you from meetings, work, or from getting things needed for daily living? No 09/01/2024 Housing Stability Vital Sign Answer Ramo e Recorded In the last 12 months, was t here a time when you were not able to pay the mortgage or rent on time? No 09/01/2024 Number of Times Moved in the Last Year Not on fi le 09/01/2024 At any time in the past 12 m [facility] [place], were you homeless or living in a skilled nursing (including now)? No 09/01/2024 Personal Safety Answer Date Recorded Have you ever been in or are you currently in a harmful physical or emotional relationship or is someone making you feel afraid or unsafe? Denies 08/28/2024 Sex and Gender Information Value Date Recorded Sex Assigned at Not on file Legal Sex Male 3:52 AM RELATIONS DIRECTOR Gender Identity Not on file Sexual Orientation Not on file Obstetrics History Last Filed Vital Signs Vital Sign Reading Time Taken Comments Blood Pressure 112/64 09/02/2024 12:44 PM RELATIONS DIRECTOR Pulse 105 09/02/2024 12:44 PM RELATIONS DIRECTOR Temperature 36.9 ??C (98.5 ??F) 09/02/2024 1 2:44 PM RELATIONS DIRECTOR Respiratory Rate 18 09/02/2024 12:4 4 PM RELATIONS DIRECTOR Oxygen Saturation 98% 09/02/2024 12: 44 PM RELATIONS DIRECTOR Inhaled Oxygen Concentration - - Weight 88.4 kg (194 lb 14.2 oz) 08/28/2024 4:30 PM RELATIONS DIRECTOR Height 172.7 cm (5' 8 ) 08/28/2024 4:30 PM RELATIONS DIRECTOR Body Mass Index 29.63 08/28/2024 4:30 PM RELATIONS DIRECTOR Plan of Treatment Health Maintenance Due Date Last Done Comments Depression Screening 1965 Hepatitis C Screening 1965 Prostate Cancer Screening-PSA 1965 DTaP/Tdap/Td Vaccine (1 - Tdap) 1974 Hepatitis B Screening 1981 Regular Well Visit/Exam 18-64 1981 Zoster Vaccine (1 of 2) 2013 Colon Cancer Screening-Colonoscopy 09/01/2034 09/01/2024 Covid-19 Vaccine Completed 07/21/2024, , 09/04/2022, Additional history exists Influenza Vaccine Completed 07/21/2024, , 09/04/2022, Additional history exists Pneumococcal vaccine <65 Aged Out 07/21/2024 No longer eligible based on patient's age to complete this topic Colon Cancer Screening-CT Colonography Discontinued 09/01/2024 Colon Cancer Screening-DNA Stool Discontinued 09/01/2024 Colon Cancer Screening-FIT Discontinued 09/01/2024 Colon Cancer Screening-Sigmoidoscopy Discontinued 09/01/2024 Procedures Procedure Name Priority Date/Time Associated Diagnosis Comments EGFR Routine 09/02/2024 5:43 AM RELATIONS DIRECTOR DIFFERENTIAL AUTO Routine 09/02/2024 5:43 AM RELATIONS DIRECTOR MAGNESIUM Routine 09/02/2024 5:43 AM RELATIONS DIRECTOR BASIC METABOLIC PANEL Routine 09/02/2024 5:43 AM RELATIONS DIRECTOR CBC WITH AUTO DIFFERENTIAL Routine 09/02 5:43 AM RELATIONS DIRECTOR SURGICAL PATHOLOGY Routine 09/01/2024 11:14 AM RELATIONS DIRECTOR Colitis COLON BIOPSY 09/01/2024 10:57 AM RELATIONS DIRECTOR Colitis COLONOSCOPY 09/01/2024 10:52 AM RELATIONS DIRECTOR EGFR Routine 09/01/2024 5:45 AM RELATIONS DIRECTOR BASIC METABOLIC PANEL Routine 09/01/2024 5:[address] ABDOMEN PELVIS W CONTRAST IP Routine 12:40 PM RELATIONS DIRECTOR DIFFERENTIAL AUTO Routine 08/31/2024 11:59 AM RELATIONS DIRECTOR CBC WITH AUTO DIFFERENTIAL Routine 08/31 11:59 AM RELATIONS DIRECTOR STOOL CULTURE Routine 08/31/2024 11:59 AM RELATIONS DIRECTOR ADD ON LAB TEST Add-On 08/31/2024 11:14 AM RELATIONS DIRECTOR CRP (ACUTE PHASE) Routine 08/31/2024 6:01 AM RELATIONS DIRECTOR EGFR Routine 08/31/2024 6:01 AM RELATIONS DIRECTOR DIFFERENTIAL AUTO Routine 08/31/2024 6:01 AM RELATIONS DIRECTOR CBC WITH AUTO DIFFERENTIAL Routine 08/31 6:01 AM RELATIONS DIRECTOR MAGNESIUM Routine 08/31/2024 6:01 AM RELATIONS DIRECTOR BASIC METABOLIC PANEL Routine 08/31/2024 6:01 AM RELATIONS DIRECTOR CALCIUM, IONIZED Routine 08/30/2024 11:56 AM RELATIONS DIRECTOR US RUQ IP Routine 08/30/2024 8:29 AM RELATIONS DIRECTOR EGFR Routine 08/30/2024 5:23 AM RELATIONS DIRECTOR DIFFERENTIAL AUTO Routine 08/30/2024 5:23 AM RELATIONS DIRECTOR BASIC METABOLIC PANEL Routine 08/30/2024 5:23 AM RELATIONS DIRECTOR CBC WITH AUTO DIFFERENTIAL Routine 08/30 5:23 AM RELATIONS DIRECTOR C. DIFFICILE TESTING Routine 08/29/2024 11:07 PM RELATIONS DIRECTOR HEMOGLOBIN AND HEMATOCRIT Timed 2023 1:56 PM RELATIONS DIRECTOR SURGICAL PATHOLOGY Routine 08/29/2024 10:14 AM RELATIONS DIRECTOR Acute GI bleeding ESOPHAGOGASTRODUODENOSCOPY BIOPSY 08/29/2024 10:04 AM RELATIONS DIRECTOR Acute GI bleeding EGD 08/29/2024 9:54 AM RELATIONS DIRECTOR MANUAL DIFFERENTIAL Routine 08/29/2024 6:29 AM RELATIONS DIRECTOR EGFR Routine 08/29/2024 6:29 AM RELATIONS DIRECTOR DIFFERENTIAL AUTO Routine 08/29/2024 6:29 AM RELATIONS DIRECTOR MAGNESIUM Routine 08/29/2024 6:29 AM RELATIONS DIRECTOR CBC WITH AUTO DIFFERENTIAL Routine 08/29 6:29 AM RELATIONS DIRECTOR BASIC METABOLIC PANEL Routine 08/29/2024 6:29 AM RELATIONS DIRECTOR TRANSFUSE RED BLOOD CELLS Timed 2023 3:22 AM RELATIONS DIRECTOR PREPARE RBC STAT 08/29/2024 2:41 AM RELATIONS DIRECTOR HEMOGLOBIN AND HEMATOCRIT Timed 2023 12:51 AM RELATIONS DIRECTOR B CHECK SAMPLE STAT 08/28/2024 7:16 PM RELATIONS DIRECTOR HEMOGLOBIN AND HEMATOCRIT STAT 2023 7:16 PM RELATIONS DIRECTOR TYPE AND SCREEN STAT 08/28/2024 7:10 PM RELATIONS DIRECTOR from Last 3 Months Results * eGFR (09/02/2024 5:43 AM RELATIONS DIRECTOR) eGFR 72 >=60 mL/min/1. 73 m2 Comment: Interpretive Data Reference Interval Normal ?>/= 90 mL/min/1.73m2 Mildly decreased* ? 60 - 89 mL/min/1.73m2 Mildly to moderately decreased ?45 - 59 mL/min/1.73m2 Moderately to severely decreased ??30 - 44 mL/min/1.73m2 Severely decreased ?15 - 29 mL/min/1.73m2 Kidney Failure ?< 15 ??mL/min/1.73m2 *Relative to young adult level Estimated glomerular filtration rate is determined by the 2020 CKD-EPI equation recommended by the National Kidney Foundation (A Unifying Approach to GFR Estimation: Recommendations of the NKF-ASK Task Force on Reassessing the Inclusion of Race in Diagnosing Kidney Disease, JASN 2020). The CKD-EPI equation should not be used for patients with unstable renal function and has not been validated in children and those over 70. Current interpretive data was last reviewed 2021. Blood 09/02/2024 5:43 AM RELATIONS DIRECTOR 09/02/2024 6:11 AM RELATIONS DIRECTOR us Cristo Funes MD LAB BLOOD ORDERABLE S Final Result [facility] [address] Department [place] [address] * (ABNORMAL) Differential, auto (09/02/2024 5:43 AM RELATIONS DIRECTOR) Monocyte abs 1.4(H) 0.2 - 0.8 K/cumm Eosinophil abs 0.1 0.0 - 0.5 K/cumm [facility] Neutrophil pct 56.0 % [facility] Comment: Interpretive Data Percent cell count reference ranges are not reported, since discordance with absolute values may lead to misinterpretation of CBC data. Current Interpretive Data was last revised on 2017. Lymphocyte pct 16.0 % [facility] Comment: Interpretive Data Percent cell count reference ranges are not reported, since discordance with absolute values may lead to misinterpretation of CBC data. Current Interpretive Data was last revised on 2017. Monocyte pct 16.8 % [facility] Comment: Interpretive Data Percent cell count reference ranges are not reported, since discordance with absolute values may lead to misinterpretation of CBC data. Current Interpretive Data was last revised on 2017. Eosinophil pct 0.8 % [facility] Comment: Interpretive Data Percent cell count reference ranges are not reported, since discordance with absolute values may lead to misinterpretation of CBC data. Current Interpretive Data was last revised on 2017. Blood 09/02/2024 5:43 AM RELATIONS DIRECTOR 09/02/2024 6:11 AM RELATIONS DIRECTOR us Cristo Funes MD LAB BLOOD ORDERABLE S Final Result [facility] [address] Department [place] [address] * (ABNORMAL) CBC with auto differential (09/02/2024 5:43 AM RELATIONS DIRECTOR) WBC 8.5 3.8 - 9.9 K/cumm Hgb 8.2(L) 13.0 - 17.5 g/dL [facility] Hct 24.9(L) 38.9 - 50.3 % [facility] Plt 228 150 - 400 K/cumm [facility] MPV 9.3 9.1 - 12.3 fL [facility] RBC 2.60(L) 4.30 - 5.80 M/cumm [facility] MCV 95.8 81.3 - 96.4 fL [facility] MCH 31.5 27.1 - 33.3 pg [facility] MCHC 32.9 32.3 - 35.7 g/dL [facility] RDW CV 15.3(H) 11.1 - 14.9 % [facility] RDW SD 53.0(H) 35.7 - 48.1 fL [facility] NRBC abs 0.15(H) 0.00 - 0.01 K/cumm [facility] Blood 09/02/2024 5:43 AM RELATIONS DIRECTOR 09/02/2024 6:11 AM RELATIONS DIRECTOR Cristo Funes MD LAB BLOOD ORDERABLE S Final Result Performing Organization Address City/[facility]/ZIP Co de Phone Number [facility] [address] Department [place] [place] [address] * Magnesium (09/02/2024 5:43 AM RELATIONS DIRECTOR) [facility] Magnesium 1.6 1.4 - 2.5 mg/dL Blood 09/02/2024 5:43 AM RELATIONS DIRECTOR 09/02/2024 6:11 AM RELATIONS DIRECTOR Cristo Funes MD LAB BLOOD ORDERABLE S Final Result Performing Organization Address [facility] de Phone Number [facility] [address] [place] [address] * (ABNORMAL) Basic metabolic panel (09/02/2024 5:43 AM RELATIONS DIRECTOR) [facility] Sodium 139 135 - 145 mmol/L Potassium, pl 3.1(L) 3.3 - 4.9 mmol/L [facility] Chloride 104 97 - 110 mmol/L [facility] CO2 23 22 - 32 mmol/L [facility] Anion gap 12 2 - 15 mmol/L [facility] BUN 5(L) 6 - 25 mg/dL [facility] Creatinine 1.15 0.80 - 1.30 mg/dL [facility] Glucose 112 70 - 199 mg/dL [facility] Comment: Interpretive Data Fasting glucose >/= 126 mg/dl is diagnostic for diabetes. ?? Fasting is defined as no caloric intake for at least 8 hours. Fasting glucose between 100 mg/dl to 125 mg/dl is diagnostic of prediabetes. In a patient with classic symptoms of hyperglycemia or hyperglycemic crisis, a random glucose >/= 200 mg/dl is diagnostic for diabetes. In the absence of unequivocal hyperglycemia, results should be confirmed by repeat testing. The classification and Diagnosis of Diabetes Diabetes Care 202; 46: S19-S40. Current interpretive data was last revised 2022. Calcium 7.8(L) 8.5 - 10.3 mg/dL [facility] Blood 09/02/2024 5:43 AM RELATIONS DIRECTOR 09/02/2024 6:11 AM RELATIONS DIRECTOR us Cristo Funes MD LAB BLOOD ORDERABLE S Final Result [facility] [address] [place] [address] * Surgical pathology (09/01/2024 11:14 AM RELATIONS DIRECTOR) Tissue (Colon, Biopsy) 09/01/2024 11:14 AM RELATIONS DIRECTOR Comment:For colitis Tissue (Colon, Biopsy) 09/01/2024 11:15 AM RELATIONS DIRECTOR Comment:For colitis Narrative PATHOLOGY [facility] - 09/02/2024 8:16 AM RELATIONS DIRECTOR [address] ??[address] Tele: ?? Dara Paz MD - After School Program Director Note to Patients: This report may contain a detailed description of human tissue sent by a health care provider to the laboratory for pathologic evaluation. The content of this report is essential for diagnosis and may provide important critical findings. This information may be unfamiliar to patients to review without a medical professional present. It is advised that the patient review this report in the presence of a health care provider who can answer questions and explain the details. SURGICAL PATHOLOGY REPORT Patient Name: ??JONES SANABRIA Address: ??[address] [place], [place] ??[address] Gender: ??M : ??1965 (Age: 59) Service: ??Cardiology Location: ??[id number], ?? Hospital #: ??[id number] Patient Type: ??[facility] Accession #: ? [id number] Taken: ? 09/01/2024 Received ? 09/01/2024 Reported: ? 09/02/2024 Physician(s): ? Cristo Funes M.D. Fernie Fulton M.D. DIAGNOSIS: Large intestine, right colon, biopsy: ? - Mild active colitis with acute inflammatory exudate (see comment) Large intestine, left colon, biopsy: ? - Mild active colitis with acute inflammatory exudate lkb/09/02/2024 08:16 Examining Pathologist: Karine Crabtree M.D. Report Reviewed and Electronically Signed By ??Karine Crabtree M.D. DIAGNOSIS COMMENT: The findings suggest infection/toxin in the appropriate clinical context, but other causes of an acute, self-limited colitis cannot be entirely excluded. SPECIMEN TYPE: A: RIGHT COLON BIOPSY B: LEFT COLON BIOPSY CLINICAL IMPRESSION AND HISTORY: Diarrhea. ??Colonoscopy shows pseudomembranes in the rectum and sigmoid colon and erosions and erythema in the ascending colon and cecum. GROSS DESCRIPTION: A. ??Received in formalin labeled JONES WIGGINTON and right colon biopsy are multiple young tissue fragments, 2 x 0.2 x 0.2 cm in aggregate. ??The specimen is filtered and entirely submitted in A1. B. ??Received in formalin labeled JONES WIGGINTON and left colon biopsy are multiple young tissue fragments, 1.5 x 0.2 x 0.2 cm in aggregate. ??The specimen is filtered and entirely submitted in B1. ?? jxi/09/01/2024 13:23 ? LKB,JXI MICROSCOPIC DESCRIPTION: Sections of the right colon biopsy show multiple fragments of colonic mucosa, some of which are unremarkable. ??Others show patchy, mild acute inflammation accompanied by acute inflammatory exudate. ??No significant architectural distortion is seen. ??Viral inclusions are not identified. Sections of the left colon biopsy also show patchy acute inflammation with acute inflammatory exudate. ??Viral inclusions are not seen. ??The crypt architecture is maintained. Clerical Data Follows A; [id number] B; [id number] REPORT IMAGES AND/OR SCANNED DOCUMENTS ONLY VIEWABLE IN PDF FORMAT The immunohistochemical test(s) cited in this report, if any, was developed and its performance characteristics determined by [facility] Pathology Department. ??It has not been cleared or approved by the U.S. Food and Drug Administration. ??The FDA has determined that such clearance or approval is not necessary. ??This test is used for clinical purposes. ??It should not be regarded as investigational or for research. ??[facility] is certified under the Clinical Laboratory Improvement Amendments of 1988 (CLIA) as qualified to perform high complexity testing. ??Immunostains were performed on formalin-fixed paraffin embedded tissue using a polymer diaminobenzidine chromogen detection system. Antibodies used may include clone SP1 (rabbit monoclonal, estrogen receptor), clone 1E2 (rabbit monoclonal progesterone receptor), Ki-67 (rabbit monoclonal, 30-9), CD117 (rabbit polyclonal, c-kit), and anti-Her-2/bryn (4B5) (rabbit monoclonal primary antibody). ??In the event that immunohistochemistry or special stains have been performed, attending physician has confirmed appropriateness of controls. ??Frozen section, operating room consultation, gross examination and dissection, and case sign out may have been performed in part or completely in the following laboratories: [facility], [address] [place] [address], [address] [place] [address]. Cristo Funes MD LAB PATHOLOGY ORDER HOLA Final Result [facility] Laboratory Receiving [address] [place] [address] * Colonoscopy (09/01/2024 10:52 AM RELATIONS DIRECTOR) Anatomical Region Laterality Modality Other Narrative Procedure Note Cristo Funes MD - 09/01/2024 10:52 AM CST ENDOSCOPY LAB Patient Name: Jones Sanabria Procedure Date: 09/01/2024 10:52AM Admit Type: Inpatient Room: [facility] 8 Date of : 1965 Instrument Name: [id number] Gender: Male Note Status: Finalized Procedure: Colonoscopy Indications: Diarrhea Providers: Cristo Funes M.D. Referring MD: Fernie Fulton M.D. Medicines: Propofol per Anesthesia Complications: No immediate complications. Estimated Blood Loss: Estimated blood loss: none. Procedure: Pre-Anesthesia Assessment: - After reviewing the risks and benefits, thepatient was deemed in satisfactory condition to undergo the procedure. - The risks and benefits of the procedure and the sedation options and risks were discussed with the patient. All questions were answered and informed consent was obtained. The benefits, risks and alternatives of theprocedure and sedation were discussed and informed consentwas obtained. All questions were answered. Please referto the signed informed consent document in the medical record. The scope was passed under direct vision.The Colonoscope was introduced through the anus and advanced to the the terminal ileum. The colonoscopy was performed without difficulty. The patient tolerated the procedure well. The quality of thebowel preparation was good. The bowel preparation usedwas Plenvu via extended prep with split doseinstruction. Findings: The perianal and digital rectal examinations were normal. The terminal ileum appeared normal. A diffuse pseudomembrane was found in the rectum and in the sigmoid colon. Patchy mild inflammation characterized by erosions and erythema was found in the ascending colon and in the cecum. Biopsies were takenwith a cold forceps for histology. The exam was otherwise without abnormality on direct and retroflexion views. Biopsies were taken with a cold forceps in the entire colon for histology. Impression: - The examined portion of the ileum was normal. - Pseudomembranous enterocolitis, more prominent in the left colon. - Patchy mild inflammation was found in theascending colon and in the cecum secondary to colitis.Biopsied. - The examination was otherwise normal on directand retroflexion views. - Biopsies were taken with a cold forceps for histology in the entire colon. Recommendation: - Await pathology results. - Given appearance of pseudomembranes in the left colon, will start oral vancomycin - Diet as tolerated - Repeat colonoscopy in [address] Cristo Funes Cristo Funes M.D. 09/01/2024 11:32:46 AM This document was signed electronically. Number of Addenda: 0 Note Initiated On: 09/01/2024 10:52 AM Scope In: Scope Out: us Cristo Funes MD ENDOSCOPY PROCEDURE S Final Result * eGFR (09/01/2024 5:45 AM RELATIONS DIRECTOR) eGFR 82 >=60 mL/min/1. 73 m2 Comment: Interpretive Data Reference Interval Normal ?>/= 90 mL/min/1.73m2 Mildly decreased* ? 60 - 89 mL/min/1.73m2 Mildly to moderately decreased ?45 - 59 mL/min/1.73m2 Moderately to severely decreased ??30 - 44 mL/min/1.73m2 Severely decreased ?15 - 29 mL/min/1.73m2 Kidney Failure ?< 15 ??mL/min/1.73m2 *Relative to young adult level Estimated glomerular filtration rate is determined by the 2020 CKD-EPI equation recommended by the [employer] (A Unifying Approach to GFR Estimation: Recommendations of the NKF-ASK Task Force on Reassessing the Inclusion of Race in Diagnosing Kidney Disease, JASN 2020). The CKD-EPI equation should not be used for patients with unstable renal function and has not been validated in children and those over 70. Current interpretive data was last reviewed 2021. Blood 09/01/2024 5:45 AM RELATIONS DIRECTOR 09/01/2024 6:26 AM RELATIONS DIRECTOR us Cayden Smiley MD LAB BLOOD ORDERABLES Final Res ult [facility] [address] Department [place] [address] * (ABNORMAL) Basic metabolic panel (09/01/2024 5:45 AM RELATIONS DIRECTOR) Sodium 137 135 - 145 mmol/L Potassium, pl 3.2(L) 3.3 - 4.9 mmol/L [facility] Chloride 100 97 - 110 mmol/L [facility] CO2 24 22 - 32 mmol/L [facility] Anion gap 13 2 - 15 mmol/L [facility] BUN 7 6 - 25 mg/dL [facility] Creatinine 1.04 0.80 - 1.30 mg/dL [facility] Glucose 128 70 - 199 mg/dL [facility] Comment: Interpretive Data Fasting glucose >/= 126 mg/dl is diagnostic for diabetes. ?? Fasting is defined as no caloric intake for at least 8 hours. Fasting glucose between 100 mg/dl to 125 mg/dl is diagnostic of prediabetes. In a patient with classic symptoms of hyperglycemia or hyperglycemic crisis, a random glucose >/= 200 mg/dl is diagnostic for diabetes. In the absence of unequivocal hyperglycemia, results should be confirmed by repeat testing. The classification and Diagnosis of Diabetes Diabetes Care 2021; 46: S19-S40. Current interpretive data was last revised 2022. Calcium 8.0(L) 8.5 - 10.3 mg/dL [facility] Blood 09/01/2024 5:45 AM RELATIONS DIRECTOR 09/01/2024 6:26 AM RELATIONS DIRECTOR us Cayden Smiley MD LAB BLOOD ORDERABLES Final Res ult [facility] [address] Department [place] [address] * CT Abdomen Pelvis W Contrast (08/31/2024 12:40 PM RELATIONS DIRECTOR) Anatomical Region Laterality Modality Body N/A Computed Tomogra phy 08/31/2024 4:39 PM RELATIONS DIRECTOR Impressions 08/31/2024 4:39 PM RELATIONS DIRECTOR 1. ??Diffuse pancolitis, likely infectious/inflammatory. 2. ??Circumferential urinary bladder wall thickening, which may represent reactive changes or superimposed cystitis. ??Mural thickening is exaggerated by degree of decompression. Electronically signed by: Dejan Chino D.O. Narrative 08/31/2024 4:39 PM RELATIONS DIRECTOR EXAMINATION: CT ABDOMEN PELVIS W CONTRAST HISTORY: Abdominal pain, acute, nonlocalized COMPARISON: Ultrasound 08/30/2024 TECHNIQUE: Helical CT of the abdomen and pelvis with intravenous contrast. Multiplanar reconstructions. CONTRAST: Contrast Type (IV): Optiray 350 Contrast Volume (IV) in mL: 96 FINDINGS: Lower chest: Minimal bibasilar scarring/atelectasis. ??Moderate hiatal hernia. ABDOMEN Liver, gallbladder, and bile ducts: No focal parenchymal lesion. Cholelithiasis without CT evidence of acute cholecystitis. ??No biliary ductal dilation. Spleen: Unremarkable Pancreas: Unremarkable Adrenal glands: Unremarkable Kidneys, collecting system, and ureters: Symmetric renal enhancement. No hydronephrosis. Retroperitoneum, lymph nodes, and vessels: No retroperitoneal lymphadenopathy. ??Normal caliber aorta with scattered calcifications. Bowel and mesentery: Nonobstructed bowel. ??Diffuse mural edema and pericolonic inflammatory stranding throughout the colon and rectum. No circumscribed fluid collection or free air to suggest perforation. No mesenteric lymphadenopathy. PELVIS Bladder: Mild circumferential bladder wall thickening given the degree of decompression. Reproductive organs: Unremarkable Extraperitoneal, lymph nodes, and vessels: No pelvic lymphadenopathy Osseous and body wall: No acute abnormality. ??Degenerative changes. Procedure Note Dejan Chino, DO - 08/31/2024 EXAMINATION: CT ABDOMEN PELVIS W CONTRAST HISTORY: Abdominal pain, acute, nonlocalized COMPARISON: Ultrasound 08/30/2024 TECHNIQUE: Helical CT of the abdomen and pelvis with intravenous contrast. Multiplanar reconstructions. CONTRAST: Contrast Type (IV): Optiray 350 Contrast Volume (IV) in mL: 96 FINDINGS: Lower chest: Minimal bibasilar scarring/atelectasis. Moderate hiatal hernia. ABDOMEN Liver, gallbladder, and bile ducts: No focal parenchymal lesion. Cholelithiasis without CT evidence of acute cholecystitis. No biliary ductal dilation. Spleen: Unremarkable Pancreas: Unremarkable Adrenal glands: Unremarkable Kidneys, collecting system, and ureters: Symmetric renal enhancement. No hydronephrosis. Retroperitoneum, lymph nodes, and vessels: No retroperitoneal lymphadenopathy. Normal caliber aorta with scattered calcifications. Bowel and mesentery: Nonobstructed bowel. Diffuse mural edema and pericolonic inflammatory stranding throughout the colon and rectum. No circumscribed fluid collection or free air to suggest perforation. No mesenteric lymphadenopathy. PELVIS Bladder: Mild circumferential bladder wall thickening given the degree of decompression. Reproductive organs: Unremarkable Extraperitoneal, lymph nodes, and vessels: No pelvic lymphadenopathy Osseous and body wall: No acute abnormality. Degenerative changes. IMPRESSION: 1. Diffuse pancolitis, likely infectious/inflammatory. 2. Circumferential urinary bladder wall thickening, which may represent reactive changes or superimposed cystitis. Mural thickening is exaggerated by degree of decompression. Electronically signed by: Dejan Chino D.O. us Cayden Smiley MD IM CT PROCEDURES Final Result * (ABNORMAL) Differential, auto (08/31/2024 11:59 AM RELATIONS DIRECTOR) Neutrophil abs 6.3 1.5 - 6.5 K/cumm Imm gran abs 0.4(H) 0.0 - 0.1 K/cumm [facility] Lymphocyte abs 1.0 0.8 - 3.3 K/cumm [facility] Monocyte abs 1.6(H) 0.2 - 0.8 K/cumm [facility] Eosinophil abs 0.0 0.0 - 0.5 K/cumm [facility] Basophil abs 0.0 0.0 - 0.1 K/cumm [facility] Neutrophil pct 67.2 % [facility] Comment: Interpretive Data Percent cell count reference ranges are not reported, since discordance with absolute values may lead to misinterpretation of CBC data. Current Interpretive Data was last revised on 2017. Imm gran pct 4.2 % [facility] Comment: Interpretive Data Percent cell count reference ranges are not reported, since discordance with absolute values may lead to misinterpretation of CBC data. Current Interpretive Data was last revised on 2017. Lymphocyte pct 10.5 % [facility] Comment: Interpretive Data Percent cell count reference ranges are not reported, since discordance with absolute values may lead to misinterpretation of CBC data. Current Interpretive Data was last revised on 2017. Monocyte pct 17.4 % [facility] Comment: Interpretive Data Percent cell count reference ranges are not reported, since discordance with absolute values may lead to misinterpretation of CBC data. Current Interpretive Data was last revised on 2017. Eosinophil pct 0.3 % [facility] Comment: Interpretive Data Percent cell count reference ranges are not reported, since discordance with absolute values may lead to misinterpretation of CBC data. Current Interpretive Data was last revised on 2017. Basophil pct 0.4 % [facility] Comment: Interpretive Data Percent cell count reference ranges are not reported, since discordance with absolute values may lead to misinterpretation of CBC data. Current Interpretive Data was last revised on 2017. Blood 08/31/2024 11:5 9 AM RELATIONS DIRECTOR 08/31/2024 11:59 AM RELATIONS DIRECTOR us Cayden Smiley MD LAB BLOOD ORDERABLES Final Res ult [facility] [address] Department [place] [address] * (ABNORMAL) CBC with auto differential (08/31/2024 11:59 AM RELATIONS DIRECTOR) WBC 9.3 3.8 - 9.9 K/cumm Hgb 9.7(L) 13.0 - 17.5 g/dL [facility] Hct 28.5(L) 38.9 - 50.3 % [facility] Plt 165 150 - 400 K/cumm [facility] MPV 10.0 9.1 - 12.3 fL [facility] RBC 2.98(L) 4.30 - 5.80 M/cumm [facility] MCV 95.6 81.3 - 96.4 fL [facility] MCH 32.6 27.1 - 33.3 pg [facility] MCHC 34.0 32.3 - 35.7 g/dL [facility] RDW CV 15.0(H) 11.1 - 14.9 % [facility] RDW SD 51.8(H) 35.7 - 48.1 fL [facility] NRBC abs 0.09(H) 0.00 - 0.01 K/cumm [facility] Blood 08/31/2024 11:5 9 AM RELATIONS DIRECTOR 08/31/2024 12:11 PM RELATIONS DIRECTOR us Cayden Smiley MD LAB BLOOD ORDERABLES Final Res ult [facility] [address] Department [place] [address] * Stool culture Stool Rectum (08/31/2024 11:59 AM RELATIONS DIRECTOR) [facility] Direct Specimen Exam Shiga Toxin Testing: Negative for: Shigatoxin of enterohemorrhagic E.coli. Report Final Report: No Salmonella, Shigella, Aeromonas, Plesiomonas, Yersinia, Campylobacter, or E.coli O157:H7 isolated [facility] Stool (Rectum) 08/31/2024 11 :59 AM RELATIONS DIRECTOR 08/31/2024 3:13 PM RELATIONS DIRECTOR Narrative [facility] - 09/03/2024 2:00 PM RELATIONS DIRECTOR This specimen is screened for the presence of Aeromonas, Campylobacter, E.coli-0157:H7, Plesiomonas, Salmonella, Shigella, Shiga Toxin producing E. coli, and Yersinia. us Ai NARAYAN LAB MICROBIOLOGY - GENERAL OR DERABLES Final Result Performing Organization Address [facility] Co de Phone Number [facility] [address] [employer] [place], [place] [id number] * CRP - Add on lab test (08/31/2024 11:14 AM RELATIONS DIRECTOR) Acceptable Yes Blood 08/31/2024 11:1 4 AM RELATIONS DIRECTOR 08/31/2024 11:14 AM RELATIONS DIRECTOR Narrative [facility] - 08/31/2024 11:14 AM RELATIONS DIRECTOR Name of Test->CRP us Ai NARAYAN LAB BLOOD ORDERABLES Final Re sult Performing Organization Address [facility] de Phone Number [facility] [address] Department [employer] [place], [place] [id number] * eGFR (08/31/2024 6:01 AM RELATIONS DIRECTOR) eGFR 89 >=60 mL/min/1. 73 m2 Comment: Interpretive Data Reference Interval Normal ?>/= 90 mL/min/1.73m2 Mildly decreased* ? 60 - 89 mL/min/1.73m2 Mildly to moderately decreased ?45 - 59 mL/min/1.73m2 Moderately to severely decreased ??30 - 44 mL/min/1.73m2 Severely decreased ?15 - 29 mL/min/1.73m2 Kidney Failure ?< 15 ??mL/min/1.73m2 *Relative to young adult level Estimated glomerular filtration rate is determined by the 2020 CKD-EPI equation recommended by the National Kidney [employer] (A Unifying Approach to GFR Estimation: Recommendations of the NKF-ASK Task Force on Reassessing the Inclusion of Race in Diagnosing Kidney Disease, JASN 2020). The CKD-EPI equation should not be used for patients with unstable renal function and has not been validated in children and those over 70. Current interpretive data was last reviewed 2021. Blood 08/31/2024 6:01 AM RELATIONS DIRECTOR 08/31/2024 7:08 AM RELATIONS DIRECTOR us Cayden Smiley MD LAB BLOOD ORDERABLES Final Res ult [facility] [address] Department [place] [address] * (ABNORMAL) Differential, auto (08/31/2024 6:01 AM RELATIONS DIRECTOR) Neutrophil abs 8.4(H) 1.5 - 6.5 K/cumm Imm gran abs 0.3(H) 0.0 - 0.1 K/cumm [facility] Lymphocyte abs 1.3 0.8 - 3.3 K/cumm [facility] Monocyte abs 2.0(H) 0.2 - 0.8 K/cumm [facility] Eosinophil abs 0.0 0.0 - 0.5 K/cumm [facility] Basophil abs 0.1 0.0 - 0.1 K/cumm [facility] Neutrophil pct 69.4 % [facility] Comment: Interpretive Data Percent cell count reference ranges are not reported, since discordance with absolute values may lead to misinterpretation of CBC data. Current Interpretive Data was last revised on 2017. Imm gran pct 2.3 % [facility] Comment: Interpretive Data Percent cell count reference ranges are not reported, since discordance with absolute values may lead to misinterpretation of CBC data. Current Interpretive Data was last revised on 2017. Lymphocyte pct 10.7 % [facility] Comment: Interpretive Data Percent cell count reference ranges are not reported, since discordance with absolute values may lead to misinterpretation of CBC data. Current Interpretive Data was last revised on 2017. Monocyte pct 16.6 % [facility] Comment: Interpretive Data Percent cell count reference ranges are not reported, since discordance with absolute values may lead to misinterpretation of CBC data. Current Interpretive Data was last revised on 2017. Eosinophil pct 0.3 % [facility] Comment: Interpretive Data Percent cell count reference ranges are not reported, since discordance with absolute values may lead to misinterpretation of CBC data. Current Interpretive Data was last revised on 2017. Basophil pct 0.7 % [facility] Comment: Interpretive Data Percent cell count reference ranges are not reported, since discordance with absolute values may lead to misinterpretation of CBC data. Current Interpretive Data was last revised on 2017. Blood 08/31/2024 6:01 AM RELATIONS DIRECTOR 08/31/2024 7:08 AM RELATIONS DIRECTOR us Cayden Smiley MD LAB BLOOD ORDERABLES Final Res ult [facility] [address] Department [place] [address] * (ABNORMAL) CBC with auto differential (08/31/2024 6:01 AM RELATIONS DIRECTOR) WBC 12.1(H) 3.8 - 9.9 K/cumm Hgb 10.5(L) 13.0 - 17.5 g/dL [facility] Comment:Hemoglobin delta due to apparent blood transfusion. Hct 31.2(L) 38.9 - 50.3 % [facility] Plt 149(L) 150 - 400 K/cumm [facility] MPV 10.6 9.1 - 12.3 fL [facility] RBC 3.24(L) 4.30 - 5.80 M/cumm [facility] MCV 96.3 81.3 - 96.4 fL [facility] MCH 32.4 27.1 - 33.3 pg [facility] MCHC 33.7 32.3 - 35.7 g/dL [facility] RDW CV 15.0(H) 11.1 - 14.9 % [facility] RDW SD 51.6(H) 35.7 - 48.1 fL [facility] NRBC abs 0.15(H) 0.00 - 0.01 K/cumm [facility] Blood 08/31/2024 6:01 AM RELATIONS DIRECTOR 08/31/2024 7:08 AM RELATIONS DIRECTOR Cayden Smiley MD LAB BLOOD ORDERABLES Final Res ult Performing Organization Address [facility] Co de Phone Number [facility] [address] [facility] [place] [place] [address] * (ABNORMAL) CRP (acute phase) (08/31/2024 6:01 AM RELATIONS DIRECTOR) Pathologist [facility] CRP 85.5(H) <=10.0 mg/L Blood 08/31/2024 6:01 AM RELATIONS DIRECTOR 08/31/2024 7:08 AM RELATIONS DIRECTOR Cayden Smiley MD LAB BLOOD ORDERABLES Final Res ult Performing Organization Address [facility] Co de Phone Number [facility] [address] Department [place] [place] [address] * Magnesium (08/31/2024 6:01 AM RELATIONS DIRECTOR) Pathologist [facility] Magnesium 1.6 1.4 - 2.5 mg/dL Blood 08/31/2024 6:01 AM RELATIONS DIRECTOR 08/31/2024 7:08 AM RELATIONS DIRECTOR Result [facility] Cayden Smiley MD LAB BLOOD ORDERABLES Final Res ult Performing Organization Address [facility] Co de Phone Number [facility] [address] [facility] [place] [place] [address] * Basic metabolic panel (08/31/2024 6:01 AM RELATIONS DIRECTOR) Sodium 136 135 - 145 mmol/L Potassium, pl 3.5 3.3 - 4.9 mmol/L [facility] Chloride 100 97 - 110 mmol/L [facility] CO2 25 22 - 32 mmol/L [facility] Anion gap 11 2 - 15 mmol/L [facility] BUN 10 6 - 25 mg/dL [facility] Creatinine 0.97 0.80 - 1.30 mg/dL [facility] Glucose 132 70 - 199 mg/dL [facility] Comment: Interpretive Data Fasting glucose >/= 126 mg/dl is diagnostic for diabetes. ?? Fasting is defined as no caloric intake for at least 8 hours. Fasting glucose between 100 mg/dl to 125 mg/dl is diagnostic of prediabetes. In a patient with classic symptoms of hyperglycemia or hyperglycemic crisis, a random glucose >/= 200 mg/dl is diagnostic for diabetes. In the absence of unequivocal hyperglycemia, results should be confirmed by repeat testing. The classification and Diagnosis of Diabetes Diabetes Care 202; 46: S19-S40. Current interpretive data was last revised 2022. Calcium 8.6 8.5 - 10.3 mg/dL [facility] Blood 08/31/2024 6:01 AM RELATIONS DIRECTOR 08/31/2024 7:08 AM RELATIONS DIRECTOR us Cayden Smiley MD LAB BLOOD ORDERABLES Final Res ult [facility] [address] [place] [address] * (ABNORMAL) Calcium, ionized (08/30/2024 11:56 AM RELATIONS DIRECTOR) [facility] Calcium, Ionized 3.61(L) 4.50 - 5.10 mg/dL Blood 08/30/2024 11:5 6 AM RELATIONS DIRECTOR 08/30/2024 11:57 AM RELATIONS DIRECTOR Cayden Smiley MD LAB BLOOD ORDERABLES Final Res ult [facility] [address] Department [place] [address] * US RUQ (08/30/2024 8:29 AM RELATIONS DIRECTOR) Anatomical Region Laterality Modality Abdomen N/A Ultrasound 08/30/2024 8:36 AM RELATIONS DIRECTOR Impressions 08/30/2024 8:36 AM RELATIONS DIRECTOR 1. Increased hepatic echogenicity consistent with hepatic steatosis. 2. ??Gallbladder containing stones and sludge without evidence of acute cholecystitis. Electronically signed by: Dean Pichardo M.D. Narrative 08/30/2024 8:36 AM RELATIONS DIRECTOR EXAMINATION: ??LIMITED ABDOMINAL SONOGRAM HISTORY: ??Concern for cirrhosis COMPARISON: ??None FINDINGS: ?? Liver: The liver is normal in size. ??The echotexture is normal. ??The echogenicity is increased. There is no surface nodularity. No focal solid lesions are visualized. ?? Gallbladder: The gallbladder is normal in size. There are stones and sludge within the gallbladder. There is no gallbladder wall thickening. Bile Duct: There is no intrahepatic bile duct dilatation. The diameter of the common duct is 5 mm. Right Kidney: There is no hydronephrosis in the visualized portions of the right kidney. Pancreas: The pancreas is obscured by overlying bowel gas. Procedure Note Dean Pichardo MD - 08/30/2024 EXAMINATION: LIMITED ABDOMINAL SONOGRAM HISTORY: Concern for cirrhosis COMPARISON: None FINDINGS: Liver: The liver is normal in size. The echotexture is normal. The echogenicity is increased. There is no surface nodularity. No focal solid lesions are visualized. Gallbladder: The gallbladder is normal in size. There are stones and sludge within the gallbladder. There is no gallbladder wall thickening. Bile Duct: There is no intrahepatic bile duct dilatation. The diameter of the common duct is 5 mm. Right Kidney: There is no hydronephrosis in the visualized portions of the right kidney. Pancreas: The pancreas is obscured by overlying bowel gas. IMPRESSION: 1. Increased hepatic echogenicity consistent with hepatic steatosis. 2. Gallbladder containing stones and sludge without evidence of acute cholecystitis. Electronically signed by: Dean Pichardo M.D. us Cristo Funes MD [facility] US PROCEDURES F inal Result * eGFR (08/30/2024 5:23 AM RELATIONS DIRECTOR) eGFR 83 >=60 mL/min/1. 73 m2 Comment: Interpretive Data Reference Interval Normal ?>/= 90 mL/min/1.73m2 Mildly decreased* ? 60 - 89 mL/min/1.73m2 Mildly to moderately decreased ?45 - 59 mL/min/1.73m2 Moderately to severely decreased ??30 - 44 mL/min/1.73m2 Severely decreased ?15 - 29 mL/min/1.73m2 Kidney Failure ?< 15 ??mL/min/1.73m2 *Relative to young adult level Estimated glomerular filtration rate is determined by the 2020 CKD-EPI equation recommended by the National Kidney Foundation (A Unifying Approach to GFR Estimation: Recommendations of the NKF-ASK Task Force on Reassessing the Inclusion of Race in Diagnosing Kidney Disease, JASN 2020). The CKD-EPI equation should not be used for patients with unstable renal function and has not been validated in children and those over 70. Current interpretive data was last reviewed 2021. Blood 08/30/2024 5:23 AM RELATIONS DIRECTOR 08/30/2024 6:41 AM RELATIONS DIRECTOR us Cayden Smiley MD LAB BLOOD ORDERABLES Final Res ult [facility] [address] Department [place] [address] * (ABNORMAL) Differential, auto (08/30/2024 5:23 AM RELATIONS DIRECTOR) Neutrophil abs 6.2 1.5 - 6.5 K/cumm Imm gran abs 0.1 0.0 - 0.1 K/cumm [facility] Lymphocyte abs 1.0 0.8 - 3.3 K/cumm [facility] Monocyte abs 1.0(H) 0.2 - 0.8 K/cumm [facility] Eosinophil abs 0.0 0.0 - 0.5 K/cumm [facility] Basophil abs 0.0 0.0 - 0.1 K/cumm [facility] Neutrophil pct 74.3 % [facility] Comment: Interpretive Data Percent cell count reference ranges are not reported, since discordance with absolute values may lead to misinterpretation of CBC data. Current Interpretive Data was last revised on 2017. Imm gran pct 1.1 % [facility] Comment: Interpretive Data Percent cell count reference ranges are not reported, since discordance with absolute values may lead to misinterpretation of CBC data. Current Interpretive Data was last revised on 2017. Lymphocyte pct 11.6 % [facility] Comment: Interpretive Data Percent cell count reference ranges are not reported, since discordance with absolute values may lead to misinterpretation of CBC data. Current Interpretive Data was last revised on 2017. Monocyte pct 12.4 % [facility] Comment: Interpretive Data Percent cell count reference ranges are not reported, since discordance with absolute values may lead to misinterpretation of CBC data. Current Interpretive Data was last revised on 2017. Eosinophil pct 0.4 % [facility] Comment: Interpretive Data Percent cell count reference ranges are not reported, since discordance with absolute values may lead to misinterpretation of CBC data. Current Interpretive Data was last revised on 2017. Basophil pct 0.2 % [facility] Comment: Interpretive Data Percent cell count reference ranges are not reported, since discordance with absolute values may lead to misinterpretation of CBC data. Current Interpretive Data was last revised on 2017. Blood 08/30/2024 5:23 AM RELATIONS DIRECTOR 08/30/2024 6:42 AM RELATIONS DIRECTOR us Cayden Smiley MD LAB BLOOD ORDERABLES Final Res ult [facility] [address] Department [place] [address] * (ABNORMAL) CBC with auto differential (08/30/2024 5:23 AM RELATIONS DIRECTOR) WBC 8.4 3.8 - 9.9 K/cumm Hgb 7.8(L) 13.0 - 17.5 g/dL [facility] Hct 23.3(L) 38.9 - 50.3 % [facility] Plt 74(L) 150 - 400 K/cumm [facility] MPV 10.9 9.1 - 12.3 fL [facility] RBC 2.39(L) 4.30 - 5.80 M/cumm [facility] MCV 97.5(H) 81.3 - 96.4 fL [facility] MCH 32.6 27.1 - 33.3 pg [facility] MCHC 33.5 32.3 - 35.7 g/dL [facility] RDW CV 15.8(H) 11.1 - 14.9 % [facility] RDW SD 54.4(H) 35.7 - 48.1 fL [facility] NRBC abs 0.12(H) 0.00 - 0.01 K/cumm [facility] Blood 08/30/2024 5:23 AM RELATIONS DIRECTOR 08/30/2024 6:42 AM RELATIONS DIRECTOR us Cayden Smiley MD LAB BLOOD ORDERABLES Final Res ult [facility] [address] Department [place] [address] * (ABNORMAL) Basic metabolic panel (08/30/2024 5:23 AM RELATIONS DIRECTOR) [facility] Sodium 134(L) 135 - 145 mmol/L Potassium, pl 2.9(L) 3.3 - 4.9 mmol/L [facility] Chloride 97 97 - 110 mmol/L [facility] CO2 27 22 - 32 mmol/L [facility] Anion gap 10 2 - 15 mmol/L [facility] BUN 22 6 - 25 mg/dL [facility] Creatinine 1.03 0.80 - 1.30 mg/dL [facility] Glucose 106 70 - 199 mg/dL [facility] Comment: Interpretive Data Fasting glucose >/= 126 mg/dl is diagnostic for diabetes. ?? Fasting is defined as no caloric intake for at least 8 hours. Fasting glucose between 100 mg/dl to 125 mg/dl is diagnostic of prediabetes. In a patient with classic symptoms of hyperglycemia or hyperglycemic crisis, a random glucose >/= 200 mg/dl is diagnostic for diabetes. In the absence of unequivocal hyperglycemia, results should be confirmed by repeat testing. The classification and Diagnosis of Diabetes Diabetes Care 2021; 46: S19-S40. Current interpretive data was last revised 2022. Calcium 7.5(L) 8.5 - 10.3 mg/dL [facility] Blood 08/30/2024 5:23 AM RELATIONS DIRECTOR 08/30/2024 6:41 AM RELATIONS DIRECTOR Cayden Smiley MD LAB BLOOD ORDERABLES Final Res ult Performing Organization Address [facility] Co de Phone Number [facility] [address] [place] [address] * C. difficile testing Stool (08/29/2024 11:07 PM RELATIONS DIRECTOR) Pathologist [facility] GDH Result Positive Negative Toxin Result Negative Negative [facility] C. diff result Negative, free toxin. Negative, free toxin [facility] C. diff interp GDH+/toxin- results almost never represent true C. difficile infection (CDI). Results may represent ??colonization with C. difficile without CDI, detection of a bacteria other than toxigenic C. difficile, or a false negative toxin assay. If there is a high index of suspicion for CDI, additional testing by PCR is available upon request. [facility] Stool 08/29/2024 11:0 7 PM RELATIONS DIRECTOR 08/29/2024 11:07 PM RELATIONS DIRECTOR Kelby Gore MD LAB MICROBIOLOGY - GENERAL ORDER HOLA Final Result Performing Organization Address [facility] Co de Phone Number [facility] [address] Department [employer] [place], [place] [id number] * (ABNORMAL) Hemoglobin and hematocrit (08/29/2024 1:56 PM RELATIONS DIRECTOR) Hgb 8.3(L) 13.0 - 17.5 g/dL Hct 24.5(L) 38.9 - 50.3 % [facility] Blood 08/29/2024 1:56 PM RELATIONS DIRECTOR 08/29/2024 2:03 PM RELATIONS DIRECTOR us Cristo Funes MD LAB BLOOD ORDERABLE S Final Result [facility] [address] [place] [address] * Surgical pathology (08/29/2024 10:14 AM RELATIONS DIRECTOR) Tissue (Esophageal biopsy) 08/29/2024 10:14 AM RELATIONS DIRECTOR Narrative PATHOLOGY [facility] - 09/02/2024 8:13 AM RELATIONS DIRECTOR [place] [address] [place], [place] ??[address] Tele: ?? Dara Paz MD - After School Program Director Note to Patients: This report may contain a detailed description of human tissue sent by a health care provider to the laboratory for pathologic evaluation. The content of this report is essential for diagnosis and may provide important critical findings. This information may be unfamiliar to patients to review without a medical professional present. It is advised that the patient review this report in the presence of a health care provider who can answer questions and explain the details. SURGICAL PATHOLOGY REPORT Patient Name: ??DAVIDMEMOSARAH JONES R. Address: ??[address] [place], [place] ??[address] Gender: ??M : ??1965 (Age: 59) Service: ??Cardiology Location: ??[id number], ?? Hospital #: ??[id number] Patient Type: ??[facility] Accession #: ? [id number] Taken: ? 08/29/2024 Received ? 08/29/2024 Reported: ? 09/02/2024 Physician(s): ? Cristo Funes M.D. Fernie Fulton M.D. DIAGNOSIS: Esophagus, lower third, mucosal biopsy: ? - Ulcerative esophagitis, nonspecific jap/09/02/2024 08:13 Examining Pathologist: Chadd Quijano M.D. Report Reviewed and Electronically Signed By ??Chadd Quijano M.D. SPECIMEN TYPE: A: LOWER THIRD ESOPHAGUS CLINICAL IMPRESSION AND HISTORY: Hematemesis, melena. ??Findings include LA grade D esophagitis with no bleeding, hiatal hernia, normal examined duodenum. GROSS DESCRIPTION: Received in formalin labeled JONES SANABRIA and lower third esophagus are multiple young tissue fragments, 1 x 0.2 x 0.1 cm in aggregate. ??The specimen is filtered and entirely submitted in A1. ?? jxi/08/29/2024 13:26 ? DMS,JXI MICROSCOPIC DESCRIPTION: Sections from the lower third esophagus show fragments of necroinflammatory ulcer bed type material with a few fragments of intact squamous epithelium. ??The epithelium shows focal neutrophilic infiltration. ??Two further evaluate the intact epithelium a GMS stain is performed to assess for subtle fungal forms and is negative in the squamous epithelium and in the necroinflammatory debris. ??Some degenerating superficial squamous epithelial cells are noted with occasional enlarged nuclei. ??To further evaluate for the presence of subtle viral components CMV and HSV1 IHC stains are performed and these are negative with good controls. ??No intestinal metaplasia or kurt malignant features are evident. Clerical Data Follows A; 13398, 64500, 53601, 97849 REPORT IMAGES AND/OR SCANNED DOCUMENTS ONLY VIEWABLE IN PDF FORMAT The immunohistochemical test(s) cited in this report, if any, was developed and its performance characteristics determined by [facility] Pathology Department. ??It has not been cleared or approved by the U.S. Food and Drug Administration. ??The FDA has determined that such clearance or approval is not necessary. ??This test is used for clinical purposes. ??It should not be regarded as investigational or for research. ??[facility] is certified under the Clinical Laboratory Improvement Amendments of 1988 (CLIA) as qualified to perform high complexity testing. ??Immunostains were performed on formalin-fixed paraffin embedded tissue using a polymer diaminobenzidine chromogen detection system. Antibodies used may include clone SP1 (rabbit monoclonal, estrogen receptor), clone 1E2 (rabbit monoclonal progesterone receptor), Ki-67 (rabbit monoclonal, 30-9), CD117 (rabbit polyclonal, c-kit), and anti-Her-2/bryn (4B5) (rabbit monoclonal primary antibody). ??In the event that immunohistochemistry or special stains have been performed, attending physician has confirmed appropriateness of controls. ??Frozen section, operating room consultation, gross examination and dissection, and case sign out may have been performed in part or completely in the following laboratories: [facility], [address] [facility], [address], [address] [place] [address]. Cristo Funes MD LAB PATHOLOGY ORDER HOLA Final Result PATHOLOGY [facility] Laboratory Receiving [facility] [place] [address] * EGD (08/29/2024 9:54 AM RELATIONS DIRECTOR) Anatomical Region Laterality Modality Other Narrative Procedure Note Cristo Funes MD - 08/29/2024 9:54 AM CST ENDOSCOPY LAB Patient Name: Jones Sanabria Procedure Date: 08/29/2024 9:54 AM Admit Type: Inpatient Room: [facility] Date of : 1965 Instrument Name: [id number] Gender: Male Note Status: Finalized Procedure: Upper GI endoscopy Indications: Hematemesis, Melena Providers: Cristo Funes M.D. Referring MD: Fernie Fulton M.D. Medicines: Propofol per Anesthesia Complications: No immediate complications. Estimated Blood Loss: Estimated blood loss: none. Procedure: Pre-Anesthesia Assessment: - After reviewing the risks and benefits, thepatient was deemed in satisfactory condition to undergo the procedure. The benefits, risks, and alternatives to theprocedure and sedation were discussed and informed consentwas obtained. The scope was passed under direct vision. The Endoscope was introduced through the mouth, and advanced to the second part of duodenum. The upperGI endoscopy was accomplished without difficulty. The patient tolerated the procedure well. Findings: LA Grade D (one or more mucosal breaks involving at least 75% of esophageal circumference) esophagitis with no bleeding was found inthe lower third of the esophagus. Biopsies were taken with a cold forceps for histology. The exam of the esophagus was otherwise normal. A 4 cm hiatal hernia was present. The exam of the stomach was otherwise normal. The examined duodenum was normal. Impression: - LA Grade D esophagitis with no bleeding.Biopsied. - 4 cm hiatal hernia. - Normal examined duodenum. Recommendation: - Await pathology results. - Use Protonix (pantoprazole) 40 mg PO BID for [address] Cristo Funes Cristo Funes M.D. 08/29/2024 10:23:40 AM This document was signed electronically. Number of Addenda: 0 Note Initiated On: 08/29/2024 9:54 AM Scope In: Scope Out: us Cristo Funes MD ENDOSCOPY PROCEDURE S Final Result * Transfuse RBC (08/29/2024 7:52 AM RELATIONS DIRECTOR) Blood us Kelby Gore MD BLOOD TRANSFUSION ORDERABLES Fin al Result [facility] [address] Department [place] [address] * (ABNORMAL) eGFR (08/29/2024 6:29 AM RELATIONS DIRECTOR) eGFR 59(L) >=60 mL/min/1. 73 m2 Comment: Interpretive Data Reference Interval Normal ?>/= 90 mL/min/1.73m2 Mildly decreased* ? 60 - 89 mL/min/1.73m2 Mildly to moderately decreased ?45 - 59 mL/min/1.73m2 Moderately to severely decreased ??30 - 44 mL/min/1.73m2 Severely decreased ?15 - 29 mL/min/1.73m2 Kidney Failure ?< 15 ??mL/min/1.73m2 *Relative to young adult level Estimated glomerular filtration rate is determined by the 2020 CKD-EPI equation recommended by the National Kidney Foundation (A Unifying Approach to GFR Estimation: Recommendations of the NKF-ASK Task Force on Reassessing the Inclusion of Race in Diagnosing Kidney Disease, JASN 202). The CKD-EPI equation should not be used for patients with unstable renal function and has not been validated in children and those over 70. Current interpretive data was last reviewed 2021. Blood 08/29/2024 6:29 AM RELATIONS DIRECTOR 08/29/2024 6:43 AM RELATIONS DIRECTOR us Scott Brantley MD LAB BLOOD ORDERABLES Fin al Result [facility] [address] Department [place] [address] * (ABNORMAL) Differential, auto (08/29/2024 6:29 AM RELATIONS DIRECTOR) Neutrophil abs 7.4(H) 1.5 - 6.5 K/cumm Imm gran abs 0.1 0.0 - 0.1 K/cumm [facility] Lymphocyte abs 0.9 0.8 - 3.3 K/cumm [facility] Monocyte abs 1.1(H) 0.2 - 0.8 K/cumm [facility] Eosinophil abs 0.0 0.0 - 0.5 K/cumm [facility] Basophil abs 0.0 0.0 - 0.1 K/cumm [facility] Neutrophil pct 77.8 % [facility] Comment: Interpretive Data Percent cell count reference ranges are not reported, since discordance with absolute values may lead to misinterpretation of CBC data. Current Interpretive Data was last revised on 2017. Imm gran pct 0.8 % [facility] Comment: Interpretive Data Percent cell count reference ranges are not reported, since discordance with absolute values may lead to misinterpretation of CBC data. Current Interpretive Data was last revised on 2017. Lymphocyte pct 9.4 % [facility] Comment: Interpretive Data Percent cell count reference ranges are not reported, since discordance with absolute values may lead to misinterpretation of CBC data. Current Interpretive Data was last revised on 2017. Monocyte pct 11.6 % [facility] Comment: Interpretive Data Percent cell count reference ranges are not reported, since discordance with absolute values may lead to misinterpretation of CBC data. Current Interpretive Data was last revised on 2017. Eosinophil pct 0.2 % [facility] Comment: Interpretive Data Percent cell count reference ranges are not reported, since discordance with absolute values may lead to misinterpretation of CBC data. Current Interpretive Data was last revised on 2017. Basophil pct 0.2 % [facility] Comment: Interpretive Data Percent cell count reference ranges are not reported, since discordance with absolute values may lead to misinterpretation of CBC data. Current Interpretive Data was last revised on 2017. Blood 08/29/2024 6:29 AM RELATIONS DIRECTOR 08/29/2024 6:41 AM RELATIONS DIRECTOR Scott Brantley MD LAB BLOOD ORDERABLES Fin al Result Performing Organization Address [facility] Co de Phone Number [facility] [address] [place] [address] * (ABNORMAL) CBC with auto differential (08/29/2024 6:29 AM RELATIONS DIRECTOR) WBC 9.5 3.8 - 9.9 K/cumm Hgb 8.0(L) 13.0 - 17.5 g/dL [facility] Hct 23.8(L) 38.9 - 50.3 % [facility] Plt 58(L) 150 - 400 K/cumm [facility] MPV 10.9 9.1 - 12.3 fL [facility] RBC 2.44(L) 4.30 - 5.80 M/cumm [facility] MCV 97.5(H) 81.3 - 96.4 fL [facility] MCH 32.8 27.1 - 33.3 pg [facility] MCHC 33.6 32.3 - 35.7 g/dL [facility] RDW CV 15.3(H) 11.1 - 14.9 % [facility] RDW SD 52.5(H) 35.7 - 48.1 fL [facility] NRBC abs 0.13(H) 0.00 - 0.01 K/cumm [facility] Blood 08/29/2024 6:29 AM RELATIONS DIRECTOR 08/29/2024 6:41 AM RELATIONS DIRECTOR Scott Brantley MD LAB BLOOD ORDERABLES Fin al Result Performing Organization Address [facility] Co de Phone Number [facility] [address] Department [place] [address] * (ABNORMAL) Manual Differential (08/29/2024 6:29 AM RELATIONS DIRECTOR) [facility] Differential Auto RBC morphology Normal [facility] Platelet estimate Decreased(A ) [facility] Morphology scrn See Comment [facility] Comment:PLT: Platelet morpho logy normal Blood 08/29/2024 6:29 AM RELATIONS DIRECTOR 08/29/2024 6:41 AM RELATIONS DIRECTOR Scott Brantley MD LAB BLOOD ORDERABLES Fin al Result [facility] [address] [facility] [place] [address] * Magnesium (08/29/2024 6:29 AM RELATIONS DIRECTOR) [facility] Magnesium 1.8 1.4 - 2.5 mg/dL Blood 08/29/2024 6:29 AM RELATIONS DIRECTOR 08/29/2024 6:43 AM RELATIONS DIRECTOR Roman Wells NP LAB BLOOD ORDERABLES Final Result [facility] [address] [facility] [place] [address] * (ABNORMAL) Basic metabolic panel (08/29/2024 6:29 AM RELATIONS DIRECTOR) [facility] Sodium 138 135 - 145 mmol/L Potassium, pl 3.4 3.3 - 4.9 mmol/L [facility] Chloride 99 97 - 110 mmol/L [facility] CO2 28 22 - 32 mmol/L [facility] Anion gap 11 2 - 15 mmol/L [facility] BUN 34(H) 6 - 25 mg/dL [facility] Creatinine 1.37(H) 0.80 - 1.30 mg/dL [facility] Glucose 141 70 - 199 mg/dL [facility] Comment: Interpretive Data Fasting glucose >/= 126 mg/dl is diagnostic for diabetes. ?? Fasting is defined as no caloric intake for at least 8 hours. Fasting glucose between 100 mg/dl to 125 mg/dl is diagnostic of prediabetes. In a patient with classic symptoms of hyperglycemia or hyperglycemic crisis, a random glucose >/= 200 mg/dl is diagnostic for diabetes. In the absence of unequivocal hyperglycemia, results should be confirmed by repeat testing. The classification and Diagnosis of Diabetes Diabetes Care 2021; 46: S19-S40. Current interpretive data was last revised 2022. Calcium 7.4(L) 8.5 - 10.3 mg/dL [facility] Blood 08/29/2024 6:29 AM RELATIONS DIRECTOR 08/29/2024 6:43 AM RELATIONS DIRECTOR Scott Brantley MD LAB BLOOD ORDERABLES Fin al Result Performing Organization Address [facility] Co de Phone Number [facility] [address] [place] [address] * Prepare RBC (08/29/2024 2:41 AM RELATIONS DIRECTOR) Pathologist [facility] Product code [id number] Unit Number [id number] [facility] Product Blood Type BPOS [facility] Dispense Status PRESUMED TRANSFUSED [facility] Blood 08/29/2024 2:41 AM RELATIONS DIRECTOR 08/29/2024 2:40 AM RELATIONS DIRECTOR Scott Brantley MD BLOOD BANK PRODUCT ORDER HOLA Final Result Performing Organization Address [facility] de Phone Number [facility] [address] Department [place] [address] * (ABNORMAL) Hemoglobin and hematocrit (08/29/2024 12:51 AM RELATIONS DIRECTOR) Hgb 7.3(L) 13.0 - 17.5 g/dL Hct 22.7(L) 38.9 - 50.3 % [facility] Blood 08/29/2024 12:5 1 AM RELATIONS DIRECTOR 08/29/2024 12:51 AM RELATIONS DIRECTOR Cristo Funes MD LAB BLOOD ORDERABLE S Final Result Performing Organization Address [facility] Co de Phone Number [facility] [address] Department of [employer] [place], [place] [id number] * Check Sample (08/28/2024 7:16 PM RELATIONS DIRECTOR) ABO Rh B Positive MBC HCLL OTHER 08/28/2024 7:16 PM RELATIONS DIRECTOR 08/28/2024 8:04 PM RELATIONS DIRECTOR Scott Brantley MD LAB BLOOD ORDERABLES Fin al Result Performing Organization Address [facility] de Phone Number [facility] [address] [place] [address] MBC * (ABNORMAL) Hemoglobin and hematocrit (08/28/2024 7:16 PM RELATIONS DIRECTOR) Hgb 8.6(L) 13.0 - 17.5 g/dL Hct 26.0(L) 38.9 - 50.3 % [facility] Blood 08/28/2024 7:16 PM RELATIONS DIRECTOR 08/28/2024 7:16 PM RELATIONS DIRECTOR Roamn Wells NP LAB BLOOD ORDERABLES Final Result Performing Organization Address [facility] Co de Phone Number [facility] [address] Department of [employer] [place], [place] [id number] * Type and screen (08/28/2024 7:10 PM RELATIONS DIRECTOR) ABO Rh B Positive Elvin, indirect Negative [facility] Blood 08/28/2024 7:10 PM RELATIONS DIRECTOR 08/28/2024 7:21 PM RELATIONS DIRECTOR Narrative [facility] - 08/28/2024 7:59 PM RELATIONS DIRECTOR If not done within 72 hours prior to infusion. Has the patient had Daratumumab or Isatuximab in the past 6 months?->Unknown Scott Brantley MD LAB BLOOD BANK TEST HIPOLITO THORNTON Final Result [facility] [address] [place] [address] from Last 3 Months Insurance [facility] CHOICE PLUS [facility] CHOICE [place] Advance Directives For more information, please contact: [phone] * Full Code (Latest Code Status on File) Date Activated Date Inactivated Comments 08/28/2024 5:56 PM 09/02/2024 5:31 PM Care Teams Cook Sauce Relationship Specialty Start Date End Date Fernie Fulton MD [address] [place] [address] PCP - General 06/13/19 Frenie Fulton MD [address] [place] [address] Internal Medicine 06/13/19
--- OUTSIDE RECORDS SUMMARY | 2024-09-03 20:21 | XMS_ITS | Encounter Summary ---
Author Organization [facility] Address [address] [place] [address]. [place], [place] [id number] [place] [address] Care Team Providers Care Induction Heating Equipment Setter Name Role Phone Fernie Fulton MD Primary Care Provider [phone] Encounter Details Date Type Department Care Team (Late st Contact Info) Description 08/30/2020 9:34 AM INDUSTRIAL RELATIONS COMMISSIONER - 08/30/2020 10:07 AM INDUSTRIAL RELATIONS COMMISSIONER Surgery [facility] [address] [place] [address] Boyd Carpio MD [address] [facility] [address] [place] [id number] RIGHT CATARACT REMOVAL WITH IOL IMPLANT Surgery Details Date/Time Status Location OR Service Patient Class Case Class Case Type Trauma Case? 08/30/2020 9:34 AM Posted [facility] OR OR 2 Ophthalmology Short Stay/Outpat ient Surgery No Panel 1 Procedure LRB Anes Op Region Wound Class Comments RIGHT CATARACT REMOVAL WITH IOL IMPLANT Right Monitor Anesthesia Care Eye Clean Surgeon Surgeon Role Service Panel Boyd Carpio MD Primary Ophthalmology 1 Special Needs 2742 documented in this encounter Social History Tobacco Use Types Packs/Day Years Used Date Smoking Tobacco: Former Smokeless Tobacco: Never Alcohol Use Standard Drinks/Week Comments Not Currently 0 (1 standard drink = 0.6 oz pur e alcohol) Sex and Gender Information Value Date Recorded Sex Assigned at Not on file Legal Sex Male 2:51 PM INDUSTRIAL RELATIONS COMMISSIONER Gender Identity Not on file Sexual Orientation Not on file COVID-19 Exposure Response Date Recorded In the last month, have you been in contact with someone who was confirmed or suspected to have Coronavirus / COVID-19? No / Unsure 08/30/2020 7:43 AM INDUSTRIAL RELATIONS COMMISSIONER documented as of this encounter Last Filed Vital Signs Vital Sign Reading Time Taken Comments Blood Pressure 166/99 08/30/2020 9:50 AM INDUSTRIAL RELATIONS COMMISSIONER Pulse 72 08/30/2020 9:50 AM INDUSTRIAL RELATIONS COMMISSIONER Temperature 37.1 ??C (98.7 ??F) 08/30/2020 9:05 AM CS T Respiratory Rate 20 08/30/2020 9:50 AM INDUSTRIAL RELATIONS COMMISSIONER Oxygen Saturation 96% 08/30/2020 9:50 AM INDUSTRIAL RELATIONS COMMISSIONER Inhaled Oxygen Concentration - - Weight 86.2 kg (190 lb) 08/30/2020 9:05 AM INDUSTRIAL RELATIONS COMMISSIONER Height 172.7 cm (5' 8 ) 08/30/2020 9:05 AM INDUSTRIAL RELATIONS COMMISSIONER Body Mass Index 28.89 08/30/2020 9:05 AM INDUSTRIAL RELATIONS COMMISSIONER documented in this encounter Discharge Instructions * Discharge Instructions* Letty Pan, RN - 08/30/2020 10:50 AM INDUSTRIAL RELATIONS COMMISSIONER [facility] POST-OP INSTRUCTIONS FOLLOWING CATARACT SURGERY 1. You will be sent home from surgery with a patch over your eye. DO NOT REMOVE THE PATCH FOR ANY REASON. Dr. Carpio will remove the patch at your 1st Post-Op (The day of surgery or the next day) and instruct you on how to use your eye drops. 2. SLEEP ON YOUR BACK OR EITHER SIDE. The night after surgery DO NOT SLEEP FACE DOWN . 3. DO NOT RUB OR PRESS ON YOUR EYE. Blot underneath or at the corner of your eye. 4. PROTECT YOUR EYE WHEN YOU NAP DURING THE DAY OR SLEEP AT NIGHT FOR 10 DAYS FOLLOWING SURGERY. Use the clear plastic shield (found in your surgery kit). Place the shield over the eye with paper tape across it to hold the shield in place. 5. LIMIT BENDING MUCH POSSIBLE AND KEEP HEAD FROM A DEPENDENT POSITION. Instead, bend your knees. You may want to hold onto a chair etc. To help keep your balance. 6. DO NOT LIFT ANYTHING OVER 20 POUNDS FOR 2 WEEKS. 7. DO NOT DO ANY STRENUOUS WORK OR EXERCISE FOR 2 WEEKS. For example: Where you strain or break a sweat. 8. DO NOT GET SOAP IN YOUR EYES. When you shower and shampoo. 9. DO NOT WEAR EYE MAKEUP OR USE CREAMS OR LOTIONS around your eyes for 2 weeks. 10. YOU MAY DRIVE WHEN YOUR VISION PERMITS. Ask you doctor. You must have a team cdl driver for the day of surgery and your 1st post op exam. 11. ALWAYS WERE SUNGLASSES WHEN YOU GO OUTSIDE. These are found in your surgery kit. Dr. Carpio OFFICE [phone] AFTER HOURS EMERGENCY [phone] STRIAL RELATIONS COMMISSIONER documented in this encounter Medications at Time of Discharge folic acid 1 MG tablet Take 1 mg by mouth daily. gabapentin 300 MG capsule Take 300 mg by mouth 2 (two) times daily. nebivolol 10 MG tablet Take 10 mg by mouth daily. pantoprazole EC 40 MG tablet Take 40 mg by mouth daily. documented as of this encounter H&P Notes * Boyd Carpio MD - 08/30/2020 7:25 AM CST HISTORY AND PHYSICAL INTERVAL NOTE: I have reviewed [employer] Painting History & Physical which was performed within the past 30 days. After examining Jones Byrdnilemei, no change has occurred in the patient's condition since the H&P was completed. Informed Consent Discussion: Risks, benefits, alternatives as well as the consequences of not performing the surgery/procedure were discussed with the patient and/or family/personal energy conservation representative. Questions were answered and the patient/family/personal energy conservation representative verbalized understanding and desires to proceed. BOYD CARPIO MD STRIAL RELATIONS COMMISSIONER documented in this encounter Nursing Notes * Ashley Valle RN - 08/30/2020 7:57 AM CST This nurse explained to pt that his COVID test results are not back yet so he will have to moved tothe last slot. Pt stated he understood STRIAL RELATIONS COMMISSIONER documented in this encounter OR Notes * Op Note - Boyd Carpio MD - 08/30/2020 11:16 AM CST Date: 08/31/2020 Patient Name: Jones Painting : 1965 Surgeon: BOYD CARPIO MD. Preoperative Diagnosis: Cataract Right Postoperative Diagnosis: Cataract Right Name of Operation: Cataract Extraction (by Phacoemulsification) and Intraocular Lens Implant Anesthesia: Topical Specimen: None Complications: NONE EBL: NONE Description of Procedure: The eye was anesthetized with topical 0.75% bupivacaine. After intravenous sedation and placement of monitors, the patient was prepped and draped in the usual sterile manner. A lid speculum was placed. A paracentesis was made, and preservative free 1% lidocaine was instilled in the anterior chamber. The anterior chamber was then filled with Viscoat viscoelastic. A jose keratome was used to create the wound. Continuous tear anterior capsulotomy was performed. The lens was hydro dissected before being removed with phacoemulsification. The remaining lenticular cortexwas removed with aspiration. The capsular bag was polished and filled with viscoelastic material. An intraocular lens was chosen, inspected, irrigated and placed within the capsular bag where it was seen to be centered and stable. The viscoelastic material was aspirated. The wound was closed and found to be watertight. Betadine and antibiotic drops were placed in the eye. The speculum was removed. A Camarena shield was applied. The patient tolerated the procedure well and left the operating room in satisfactory condition. BOYD CARPIO MD STRIAL RELATIONS COMMISSIONER * Op Note - Boyd Carpio MD - 08/30/2020 10:48 AM CST Date: 08/30/2020 Patient Name: Jones Mert SchumacherO.B.: 1965 Surgeon: BOYD CARPIO MD. Preoperative Diagnosis: Cataract Right Postoperative Diagnosis: Cataract Right Name of Operation: Cataract Extraction (by Phacoemulsification) and Intraocular Lens Implant Anesthesia: Topical Specimen: None Complications: NONE EBL: NONE Description of Procedure: The eye was anesthetized with topical 0.75% bupivacaine. After intravenous sedation and placement of monitors, the patient was prepped and draped in the usual sterile manner. A lid speculum was placed. A paracentesis was made, and preservative free 1% lidocaine was instilled in the anterior chamber. The anterior chamber was then filled with Viscoat viscoelastic. A jose keratome was used to create the wound. Continuous tear anterior capsulotomy was performed. The lens was hydro dissected before being removed with phacoemulsification. The remaining lenticular cortexwas removed with aspiration. The capsular bag was polished and filled with viscoelastic material. An intraocular lens was chosen, inspected, irrigated and placed within the capsular bag where it was seen to be centered and stable. The viscoelastic material was aspirated. The wound was closed and found to be watertight. Betadine and antibiotic drops were placed in the eye. The speculum was removed. A Camarena shield was applied. The patient tolerated the procedure well and left the operating room in satisfactory condition. BOYD CARPIO MD STRIAL RELATIONS COMMISSIONER documented in this encounter Plan of Treatment Not on file documented as of this encounter Procedures Procedure Name Priority Date/Time Associated Diagnosis Comments CATARACT REMOVAL WITH IOL IMPLANT 08/30/2020 10:19 AM INDUSTRIAL RELATIONS COMMISSIONER H25.11 Special Needs 0730 documented in this encounter Visit Diagnoses Not on filedocumented in this encounter Administered Medications Inactive Administered Medications - up to 3 most recent administrations Medication Order MAR Action Action Date Dose Rate Site apraclonidine (IOPIDINE) 0.5 % ophthalmic solution As needed, Starting on Sun08/30/20 at 1033, Until Sun08/30/20 at 1036, Intra-Op Given 08/30/2020 10:33 AM INDUSTRIAL RELATIONS COMMISSIONER 2 drops besifloxacin (BESIVANCE) 0.6 % ophthalmic suspension 1 drop 1 drop, Right Eye, Every 5 min, 3 doses, First dose on Sun08/30/20 at 0945, Last dose on Sun08/30/20 at 0955, Instill to operative eye, Pre-Op Given 08/30/2020 9:45 AM INDUSTRIAL RELATIONS COMMISSIONER 1 drop Given 08/30/2020 9:32 AM INDUSTRIAL RELATIONS COMMISSIONER 1 drop Given 08/30/2020 9:25 AM INDUSTRIAL RELATIONS COMMISSIONER 1 drop BUpivacaine (PF) (MARCAINE) 0.5 % injection 0.1 mL 0.1 mL, Right Eye, Every 5 min, 3 doses, First dose on Sun08/30/20 at 0945, Last dose on Sun08/30/20 at 0955, Instill to operative eye, Pre-Op Given 08/30/2020 9:44 AM INDUSTRIAL RELATIONS COMMISSIONER 0.1 mLs Given 08/30/2020 9:30 AM INDUSTRIAL RELATIONS COMMISSIONER 10 mLs Given 08/30/2020 9:24 AM INDUSTRIAL RELATIONS COMMISSIONER 0.1 mLs EPINEPHrine 0.3 mg in balanced salts (BSS) irrigation solution As needed, Starting on Sun08/30/20 at 1033, Until Sun08/30/20 at 1036, Intra-Op Given 08/30/2020 10:33 AM INDUSTRIAL RELATIONS COMMISSIONER 500 mLs flurbiprofen (OCUFEN) 0.03 % ophthalmic solution 1 drop 1 drop, Right Eye, Every 5 min, 3 doses, First dose on Sun08/30/20 at 0945, Last dose on Sun08/30/20 at 0955, Instill to operative eye, Pre-Op Given 08/30/2020 9:45 AM INDUSTRIAL RELATIONS COMMISSIONER 1 drop Given 08/30/2020 9:31 AM INDUSTRIAL RELATIONS COMMISSIONER 1 drop Given 08/30/2020 9:25 AM INDUSTRIAL RELATIONS COMMISSIONER 1 drop lidocaine (PF) (XYLOCAINE) 1 % injection As needed, Starting on Sun08/30/20 at 1024, Until Sun08/30/20 at 1036, Intra-Op Given 08/30/2020 10:24 AM INDUSTRIAL RELATIONS COMMISSIONER 0.25 mLs methazolAMIDE (NEPTAZANE) tablet 50 mg 50 mg, Oral, Once, 1 dose, On Sun08/30/20 at 1045, If NOT allergic to Sulfa, Post-Op Given 08/30/2020 10:58 AM INDUSTRIAL RELATIONS COMMISSIONER 50 mg moxifloxacin (VIGAMOX) 0.5 % ophthalmic solution As needed, Starting on Sun08/30/20 at 1033, Until Sun08/30/20 at 1036, Intra-Op Given 08/30/2020 10:33 AM INDUSTRIAL RELATIONS COMMISSIONER 2 drops azgshtnd-selvuecrkq-cutuhgmpy (NEOSPORIN) ophthalmic ointment As needed, Starting on Sun08/30/20 at 1034, Until Sun08/30/20 at 1036, Intra-Op Given 08/30/2020 10:34 AM INDUSTRIAL RELATIONS COMMISSIONER 1 mL phenylephrine (MYDFRIN) 2.5 % ophthalmic solution 1 drop 1 drop, Right Eye, Every 5 min, 3 doses, First dose on Sun08/30/20 at 0945, Last dose on Sun08/30/20 at 0955, Instill to operative eye, Pre-Op Given 08/30/2020 9:44 AM INDUSTRIAL RELATIONS COMMISSIONER 1 drop Given 08/30/2020 9:31 AM INDUSTRIAL RELATIONS COMMISSIONER 1 drop Given 08/30/2020 9:25 AM INDUSTRIAL RELATIONS COMMISSIONER 1 drop povidone-iodine (BETADINE) 5 % ophthalmic solution As needed, Starting on Sun08/30/20 at 1024, Until Sun08/30/20 at 1036, Intra-Op Given 08/30/2020 10:24 AM INDUSTRIAL RELATIONS COMMISSIONER 2 drops tropicamide (MYDRIACYL) 1 % ophthalmic solution 1 drop 1 drop, Right Eye, Every 5 min, 2 doses, First dose on Sun08/30/20 at 0945, Last dose on Sun08/30/20 at 0950, Instill to operative eye, Pre-Op Given 08/30/2020 9:31 AM INDUSTRIAL RELATIONS COMMISSIONER 1 drop Given 08/30/2020 9:24 AM INDUSTRIAL RELATIONS COMMISSIONER 1 drop documented in this encounter Active and Recently Administered Medications Times are shown in INDUSTRIAL RELATIONS COMMISSIONER. Scheduled Medication Order 08/28/2020 08/29/2020 08/30/2020 besifloxacin (BESIVANCE) 0.6 % ophthalmic suspension 1 drop (COMPLETED) 1 drop, Right Eye, Every 5 min, 3 doses, First dose on Sun08/30/20 at 0945, Last dose on Sun08/30/20 at 0955, Instill to operative eye, Pre-Op 0925 (Given - Provid er: Ashley Valle RN)0932 (Given - Provider: Ashley Valle RN)0945 (Given - Provider: Ashley Valle RN) BUpivacaine (PF) (MARCAINE) 0.5 % injection 0.1 mL (COMPLETED) 0.1 mL, Right Eye, Every 5 min, 3 doses, First dose on Sun08/30/20 at 0945, Last dose on Sun08/30/20 at 0955, Instill to operative eye, Pre-Op 0924 (Given - Provid er: Ashley Valle RN)0930 (Given - Provider: Ashley Valle RN)0944 (Given - Provider: Ashley Valle RN) flurbiprofen (OCUFEN) 0.03 % ophthalmic solution 1 drop (COMPLETED) 1 drop, Right Eye, Every 5 min, 3 doses, First dose on Sun08/30/20 at 0945, Last dose on Sun08/30/20 at 0955, Instill to operative eye, Pre-Op 0925 (Given - Provid er: Ashley Valle RN)0931 (Given - Provider: Ashley Valle RN)0945 (Given - Provider: Ashley Valle RN) methazolAMIDE (NEPTAZANE) tablet 50 mg (COMPLETED) 50 mg, Oral, Once, 1 dose, On Sun08/30/20 at 1045, If NOT allergic to Sulfa, Post-Op 1058 (Given - Provid er: Letty Pan RN) phenylephrine (MYDFRIN) 2.5 % ophthalmic solution 1 drop (COMPLETED) 1 drop, Right Eye, Every 5 min, 3 doses, First dose on Sun08/30/20 at 0945, Last dose on Sun08/30/20 at 0955, Instill to operative eye, Pre-Op 0925 (Given - Provid er: Ashley Valle RN)09 (Given - Provider: Ashley Valle RN)0944 (Given - Provider: Ashley Valle RN) tropicamide (MYDRIACYL) 1 % ophthalmic solution 1 drop (COMPLETED) 1 drop, Right Eye, Every 5 min, 2 doses, First dose on Sun08/30/20 at 0945, Last dose on Sun08/30/20 at 0950, Instill to operative eye, Pre-Op 0924 (Given - Provid er: Ashley Valle RN)0931 (Given - Provider: Ashley Valle RN) PRN Medication Order 08/28/2020 08/29/2020 08/30/2020 apraclonidine (IOPIDINE) 0.5 % ophthalmic solution (CANCELED) As needed, Starting on Sun08/30/20 at 1033, Until Sun08/30/20 at 1036, Intra-Op 1033 (Given - Provid er: Boyd Carpio MD) EPINEPHrine 0.3 mg in balanced salts (BSS) irrigation solution (CANCELED) As needed, Starting on Sun08/30/20 at 1033, Until Sun08/30/20 at 1036, Intra-Op 1033 (Given - Provid er: Boyd Carpio MD) lidocaine (PF) (XYLOCAINE) 1 % injection (CANCELED) As needed, Starting on Sun08/30/20 at 1024, Until Sun08/30/20 at 1036, Intra-Op 1024 (Given - Provid er: Suzan Drew RN - Comment: right eye) moxifloxacin (VIGAMOX) 0.5 % ophthalmic solution (CANCELED) As needed, Starting on Sun08/30/20 at 1033, Until Sun08/30/20 at 1036, Intra-Op 1033 (Given - Provid er: Boyd Carpio MD) afkqtumf-pqpuxrgpea-zmpsnvaim (NEOSPORIN) ophthalmic ointment (CANCELED) As needed, Starting on Sun08/30/20 at 1034, Until Sun08/30/20 at 1036, Intra-Op 1034 (Given - Provid er: Boyd Carpio MD - Comment: 1 application) povidone-iodine (BETADINE) 5 % ophthalmic solution (CANCELED) As needed, Starting on Sun08/30/20 at 1024, Until Sun08/30/20 at 1036, Intra-Op 1024 (Given - Provid er: Suzan Drew RN) documented in this encounter Additional Health Concerns Infection Onset Date Last Indicated Resolved Time COVID-19 Rule Out 08/28/2020 08/28/2020 08/30/2020 12:50 PM INDUSTRIAL RELATIONS COMMISSIONER documented as of this encounter Care Teams Induction Heating Equipment Setter Relationship Specialty Start Date End Date Fernie Fulton MD [address] [place] [address] PCP - General INTERNAL MEDICINE 08/28/20 documented as of this encounter
--- OUTSIDE RECORDS SUMMARY | 2024-09-03 20:21 | XMS_ITS | Encounter Summary ---
Author Organization [facility] Address [address] [place] [address]. [place], [place] [id number] [place] [address] Care Team Providers Care Guest Room Inspector Name Role Phone Fernie Fulton MD Primary Care Provider [phone] Encounter Details Date Type Department Care Team (Latest Contact Info) Description 08/30/2020 Travel Social History Tobacco Use Types Packs/Day Years Used Date Smoking Tobacco: Former Smokeless Tobacco: Never Alcohol Use Standard Drinks/Week Comments Not Currently 0 (1 standard drink = 0.6 oz pur e alcohol) Sex and Gender Information Value Date Recorded Sex Assigned at Not on file Legal Sex Male 2:51 PM PROCESSING TECHNOLOGIST Gender Identity Not on file Sexual Orientation Not on file COVID-19 Exposure Response Date Recorded In the last month, have you been in contact with someone who was confirmed or suspected to have Coronavirus / COVID-19? No / Unsure 08/30/2020 7:43 AM PROCESSING TECHNOLOGIST documented as of this encounter Plan of Treatment Not on file documented as of this encounter Visit Diagnoses Not on filedocumented in this encounter Additional Health Concerns Infection Onset Date Last Indicated Resolved Time COVID-19 Rule Out 08/28/2020 08/28/2020 08/30/2020 12:50 PM PROCESSING TECHNOLOGIST documented as of this encounter Care Teams Guest Room Inspector Relationship Specialty Start Date End Date Fernie Fulton MD [address] [place] [phone] PCP - General INTERNAL MEDICINE 08/28/20 documented as of this encounter
--- OUTSIDE RECORDS SUMMARY | 2024-09-03 20:21 | XMS_ITS | Encounter Summary ---
Author Organization [facility] Address [address] [place] [address]. [place], [place] [address] [place] [address] Care Team Providers Care Sales Service Representative Name Role Phone Fernie Fulton MD Primary Care Provider [phone] Encounter Details Date Type Department Care Team (Late st Contact Info) Description 08/23/2020 Prep for Procedure [facility] [address] [place], [place] [id number] Alcon Desir MD [address] [facility] [address] [place] [address] Social History Tobacco Use Types Packs/Day Years Used Date Smoking Tobacco: Former Smokeless Tobacco: Never Alcohol Use Standard Drinks/Week Comments Not Currently 0 (1 standard drink = 0.6 oz pur e alcohol) Sex and Gender Information Value Date Recorded Sex Assigned at Not on file Legal Sex Male 2:51 PM SAP BASIS Gender Identity Not on file Sexual Orientation Not on file documented as of this encounter Plan of Treatment Not on file documented as of this encounter Visit Diagnoses Diagnosis Preop testing- Primary Preoperative examination, unspecified documented in this encounter Additional Health Concerns Infection Onset Date Last Indicated Resolved Time COVID-19 Rule Out 08/28/2020 08/28/2020 08/30/2020 12:50 PM SAP BASIS documented as of this encounter Care Teams Sales Service Representative Relationship Specialty Start Date End Date Fernie Fulton MD [address] [place] [phone] PCP - General INTERNAL MEDICINE 08/28/20 documented as of this encounter
--- OUTSIDE RECORDS SUMMARY | 2024-09-03 20:21 | XMS_ITS | Encounter Summary ---
Author Organization [facility] Address [address] [place] [address]. [place], [place] [address] [place] [address] Care Team Providers Care Stevedoring Supervisor Name Role Phone Fernie Fulton MD Primary Care Provider [phone] Encounter Details Date Type Department Care Team (Late st Contact Info) Description 08/30/2020 10:18 AM VERTICAL CONTOUR BAND SAW OPERATOR Anesthesia Event [facility] Surgery [address] [place] [address] Sejal Salinas CRNA [address] [place] [address] Angelika Sinha CRNA [address] [place] [address] Anesthesia Record Procedure Summary Procedure Name Responsible Anesthesiologist Anesthesia Start Time Anesthesia Stop Time RIGHT CATARACT REMOVAL WITH IOL IMPLANT (Right: Eye) Sejal Salinas CRNA 08/30/20 1018 08/30/20 1038 Events Date Time Event Comment 08/30/2020 0913 0913 AN Anesthesia Prepped 0913 AN TOBACCO WAREHOUSE AGENT Prepped 1018 An Start Patient ID and consent checked and patient reassessed. 1018 An Start Data 1020 Anesthesia Ready 1038 An Stop 1038 an stop data Meds Name Total midazolam 2 mg/2 mL injection 2 mg * Agents Name O2 * Blood No blood administrations on file. Lines, Drains, and Airways Type Details Placement Removal Peripheral IV Placement Date: 08/30/20; Placement Time: 0950; Placed Outside of This Facility?: No; Size: 22 G; Orientation: Left; Location: Hand; Site Prep: Alcohol; Local Anesthetic: None; Inserted By: Ashley VIRK; Insertion attempts: 2; Ultrasound-guided Placement?: No; Patient Tolerance: Tolerated well; Removal Date: 08/30/20; Removal Time: 1052; Removal Reason: Patient Discharged 08/30/20 0950 by Ashley Valle RN 08/30/20 1052 by Letty Pan APRN Surgical/Incision 08/30/20; 1031; Surgical Wound; Eye; Right; SHIELD EYE ADULT (x1), TAPE PAPER 1 (x1); 08/30/20; 1316 08/30/20 1031 by Suzan Drew RN 08/30/20 1316 by Automatic Discharge Provider documented in this encounter Social History Tobacco Use Types Packs/Day Years Used Date Smoking Tobacco: Former Smokeless Tobacco: Never Alcohol Use Standard Drinks/Week Comments Not Currently 0 (1 standard drink = 0.6 oz pur e alcohol) Sex and Gender Information Value Date Recorded Sex Assigned at Not on file Legal Sex Male 2:51 PM VERTICAL CONTOUR BAND SAW OPERATOR Gender Identity Not on file Sexual Orientation Not on file COVID-19 Exposure Response Date Recorded In the last month, have you been in contact with someone who was confirmed or suspected to have Coronavirus / COVID-19? No / Unsure 08/30/2020 7:43 AM VERTICAL CONTOUR BAND SAW OPERATOR documented as of this encounter OR Notes * Anesthesia Postprocedure Evaluation - Sejal Salinas CRNA - 08/30/2020 10:38 AM CST Anesthesia Post-op Note [employer] Procedure(s): RIGHT CATARACT REMOVAL WITH IOL IMPLANT (Right Eye) Anesthesia type: MAC Vitals: 08/30/20 0950 BP: (!) 166/99 Vitals: 08/30/20 0950 Pulse: 72 Vitals: 08/30/20 0950 Resp: 20 Vitals: 08/30/20 0905 Temp: 37.1 ??C Vitals: 08/30/20 0950 SpO2: 96% Patient Location: Phase II/Outpatient Level of Consciousness: sedated and responds to stimulation Pain Management: adequate analgesia Airway Patency: patent Respiratory Status: acceptable Cardiovascular Status: acceptable Post-Op Nausea: none Postoperative Hydration: euvolemic Complications: no anesthesia complication ICAL CONTOUR BAND SAW OPERATOR * Anesthesia Preprocedure Evaluation - Kirit Marroquin CRNA - 08/23/2020 9:33 AM CST Anesthesia ROS/MED History Reviewed: Patient summary , Nursing notes , Family history anesthesia, Anesthesia history , Medications Pre-Anesthetic State: alert, awake and responds appropriately Pulmonary (+) smoker (former) Cardiovascular (+) hypertension Neuro/Psych (+) neuromuscular disease, (neuropathy) Comments: Neuropathy in both feet GI/Hepatic/Renal (+) GERD Endo/Other neg endo/other ROS Physical Evaluation Airway Mallampati: II TM Distance: >3 FB Neck ROM: normal Dental No notable dental history Pulmonary Pulmonary exam normal Breath sounds clear to auscultation Cardiovascular Rhythm: regular Rate: normal Anesthesia Plan ASA 2 Intravenous Induction Anesthesia type: MAC Informed Consent Anesthetic plan and risks discussed with patient of whom consent was obtained. Consent of blood products not discussed. . Cosigned by Alcon Desir MD at 08/30/2020 9:38 AM VERTICAL CONTOUR BAND SAW OPERATOR ICAL CONTOUR BAND SAW OPERATOR ICAL CONTOUR BAND SAW OPERATOR ICAL CONTOUR BAND SAW OPERATOR ICAL CONTOUR BAND SAW OPERATOR ICAL CONTOUR BAND SAW OPERATOR documented in this encounter Plan of Treatment Not on file documented as of this encounter Visit Diagnoses Not on filedocumented in this encounter Administered Medications Inactive Administered Medications - up to 3 most recent administrations Medication Order MAR Action Action Date Dose Rate Site midazolam (VERSED) injection Intravenous, PRN, Starting on Sun08/30/20 at 1016, Until Sun08/30/20 at 1038, Anesthesia Intra-Op Given 08/30/2020 10:26 AM VERTICAL CONTOUR BAND SAW OPERATOR 0.5 mg Given 08/30/2020 10:23 AM VERTICAL CONTOUR BAND SAW OPERATOR 0.5 mg Given 08/30/2020 10:16 AM VERTICAL CONTOUR BAND SAW OPERATOR 1 mg documented in this encounter Additional Health Concerns Infection Onset Date Last Indicated Resolved Time COVID-19 Rule Out 08/28/2020 08/28/2020 08/30/2020 12:50 PM VERTICAL CONTOUR BAND SAW OPERATOR documented as of this encounter Care Teams Stevedoring Supervisor Relationship Specialty Start Date End Date Kopjas, Fernie, MD [address] [facility] [address] [place] [address] PCP - General INTERNAL MEDICINE 08/28/20 documented as of this encounter
--- OUTSIDE RECORDS SUMMARY | 2024-09-03 20:21 | XMS_ITS | Encounter Summary ---
Author Organization [facility] Address [address] [place] [address]. [place], [place] [address] [place] [address] Care Team Providers Care Gifts Officer Name Role Phone Fernie Fulton MD Primary Care Provider [phone] Encounter Details Date Type Department Care Team (Latest Contact Info) Description 08/28/2020 10:16 AM CRIME SPECIALIST - 08/28/2020 11:59 PM CRIME SPECIALIST Hospital Encounter [facility] [address] [place] [address] Alcon Desir MD [address] [facility] [address] [place] [address] Discharge Disposition: Home or Self Care (Routine Discharge) Social History Tobacco Use Types Packs/Day Years Used Date Smoking Tobacco: Former Smokeless Tobacco: Never Alcohol Use Standard Drinks/Week Comments Not Currently 0 (1 standard drink = 0.6 oz pur e alcohol) Sex and Gender Information Value Date Recorded Sex Assigned at Not on file Legal Sex Male 2:51 PM CRIME SPECIALIST Gender Identity Not on file Sexual Orientation Not on file documented as of this encounter Medications at Time of Discharge folic acid 1 MG tablet Take 1 mg by mouth daily. gabapentin 300 MG capsule Take 300 mg by mouth 2 (two) times daily. nebivolol 10 MG tablet Take 10 mg by mouth daily. pantoprazole EC 40 MG tablet Take 40 mg by mouth daily. documented as of this encounter Plan of Treatment Not on file documented as of this encounter Procedures Procedure Name Priority Date/Time Associated Diagnosis Comments CORONAVIRUS (COVID 19) PCR Routine 08/28/2020 10:19 AM CRIME SPECIALIST documented in this encounter Results * CORONAVIRUS (COVID 19) PCR (08/28/2020 10:19 AM CRIME SPECIALIST) CORONAVIRUS SARS COV 2 PCR (RESP) NEGATIVE NEGATIVE 08/30/2020 12:50 PM CRIME SPECIALIST [facility] Comment: NEGATIVE RESULTS DO NOT PRECLUDE SARS-CoV-2 INFECTION AND SHOULD NOT BE USED THE SOLE BASIS FOR PATIENT MANAGEMENT DECISIONS. NEGATIVE RESULTS MUST BE COMBINED WITH CLINICAL OBSERVATIONS, PATIENT HISTORY, AND EPIDEMIOLOGICAL INFORMATION. THE SARS-CoV-2 TEST HAS BEEN AUTHORIZED BY THE FDA UNDER AN EUA FOR USE BY AUTHORIZED LABORATORIES. FIRST TEST UNKNOWN 08/28/2020 1:35 PM CRIME SPECIALIST [facility] EMPLOYED IN HEALTHCARE UNKNOWN 08/28/2020 1:35 PM CRIME SPECIALIST [facility] SYMPTOMATIC DEFINED BY CDC UNKNOWN 08/28/2020 1:35 PM CRIME SPECIALIST [facility] HOSPITALIZATION STATUS UNKNOWN 08/28/2020 1:35 PM CRIME SPECIALIST [facility] PATIENT IN ICU UNKNOWN 08/28/2020 1:35 PM CRIME SPECIALIST [facility] RESIDENT OF CRITICAL ACCESS HOSPITAL CARE UNKNOWN 08/28/2020 1:35 PM CRIME SPECIALIST [facility] 08/28/2020 10:1 9 AM CRIME SPECIALIST [place] Alcon Desir MD MICROBIOLOGY - GENERAL ORDERA BLES Final Result [facility] [address] [place] [address], [place] [phone] [facility] [address] [place] [address], [place] [phone] [id number] documented in this encounter Visit Diagnoses Diagnosis Preop testing Preoperative examination, unspecified documented in this encounter Additional Health Concerns Infection Onset Date Last Indicated Resolved Time COVID-19 Rule Out 08/28/2020 08/28/2020 08/30/2020 12:50 PM CRIME SPECIALIST documented as of this encounter Care Teams Gifts Officer Relationship Specialty Start Date End Date Kopjas, Fernie, MD [address] [facility] [address] [place] [address] PCP - General INTERNAL MEDICINE 08/28/20 documented as of this encounter
--- OUTSIDE RECORDS SUMMARY | 2024-09-03 20:21 | XMS_ITS | Encounter Summary ---
Author Organization [facility] Address [address] [place] [address]. [place], [place] [address] [place] [address] Care Team Providers Care Telecommunications Analyst Name Role Phone Fernie Fulton MD Primary Care Provider [phone] Encounter Details Date Type Department Care Team (Latest Contact Info) Description 08/30/2020 7:42 AM RELAY TESTER HELPER - 08/30/2020 11:16 AM RELAY TESTER HELPER Hospital Encounter [facility] Surgery [address] [place] [address] Boyd Carpio MD [address] [facility] [address] [place] [address] Discharge Disposition: Home or Self Care (Routine Discharge) Social History Tobacco Use Types Packs/Day Years Used Date Smoking Tobacco: Former Smokeless Tobacco: Never Alcohol Use Standard Drinks/Week Comments Not Currently 0 (1 standard drink = 0.6 oz pur e alcohol) Sex and Gender Information Value Date Recorded Sex Assigned at Not on file Legal Sex Male 2:51 PM RELAY TESTER HELPER Gender Identity Not on file Sexual Orientation Not on file COVID-19 Exposure Response Date Recorded In the last month, have you been in contact with someone who was confirmed or suspected to have Coronavirus / COVID-19? No / Unsure 08/30/2020 7:43 AM RELAY TESTER HELPER documented as of this encounter Last Filed Vital Signs Vital Sign [place] Time Taken Comments Blood Pressure 165/99 08/30/2020 10:46 AM RELAY TESTER HELPER did not take his blood pressure medication, and will resume once he is discharged. Pulse 73 08/30/2020 10:46 AM RELAY TESTER HELPER Temperature 36.7 ??C (98.1 ??F) 08/30/2020 1 0:46 AM RELAY TESTER HELPER Respiratory Rate 20 08/30/2020 10:4 6 AM RELAY TESTER HELPER Oxygen Saturation 96% 08/30/2020 10: 46 AM RELAY TESTER HELPER Inhaled Oxygen Concentration - - Weight 86.2 kg (190 lb) 08/30/2020 9:05 AM RELAY TESTER HELPER Height 172.7 cm (5' 8 ) 08/30/2020 9:05 AM RELAY TESTER HELPER Body Mass Index 28.89 08/30/2020 9:05 AM RELAY TESTER HELPER documented in this encounter Discharge Instructions * Discharge Instructions* Letty Pan RN - 08/30/2020 10:50 AM RELAY TESTER HELPER [facility] POST-OP INSTRUCTIONS FOLLOWING [...] Ask you doctor. You must have a driver/merchandiser for the day of surgery and your 1st post op exam. 11. ALWAYS WERE SUNGLASSES WHEN YOU GO OUTSIDE. These are found in your surgery kit. Dr. Carpio OFFICE [phone] AFTER HOURS EMERGENCY [phone] Y TESTER HELPER documented in this encounter Medications at Time [...] the past 30 days. After examining [employer], no change has occurred in the patient's condition since the H&P was completed. Informed Consent Discussion: Risks, benefits, alternatives as well as the consequences of not performing the surgery/procedure were discussed with the patient and/or family/personal bilingual inside sales representative. Questions were answered and the patient/family/personal bilingual inside sales representative verbalized understanding and desires to proceed. BOYD CARPIO MD Y TESTER HELPER documented in this encounter Nursing Notes * Ashley Valle RN - 08/30/2020 7:57 AM CST This nurse explained to pt that his COVID test results are not back yet so he will have to moved tothe last slot. Pt stated he understood Y TESTER HELPER documented in this encounter OR Notes * [...] the eye. The speculum was removed. A Camarean shield was applied. The patient tolerated the procedure well and left the operating room in satisfactory condition. BOYD CARPIO MD Y TESTER HELPER * Op Note - Boyd Carpio MD - 08/30/2020 10:48 AM CST Date: 08/30/2020 Patient Name: Jones SchumacherO.B.: 1965 Surgeon: BOYD CARPIO MD. Preoperative [...] room in satisfactory condition. BOYD CARPIO MD Y TESTER HELPER documented in this encounter Plan of Treatment Not on file documented as of this encounter Procedures Procedure Name Priority Date/Time Associated Diagnosis Comments CATARACT REMOVAL WITH IOL IMPLANT 08/30/2020 10:19 AM RELAY TESTER HELPER H25.11 Special Needs 0730 documented in this encounter Visit Diagnoses Not on filedocumented in this encounter Administered Medications Inactive Administered Medications - up to 3 most recent administrations Medication Order MAR Action Action Date Dose Rate Site besifloxacin (BESIVANCE) 0.6 % ophthalmic suspension 1 drop 1 drop, Right Eye, Every 5 min, 3 doses, First dose on Sun08/30/20 at 0945, Last dose on Sun08/30/20 at 0955, Instill to operative eye, Pre-Op Given 08/30/2020 9:45 AM RELAY TESTER HELPER 1 drop Given 08/30/2020 9:32 AM RELAY TESTER HELPER 1 drop Given 08/30/2020 9:25 AM RELAY TESTER HELPER 1 drop BUpivacaine (PF) (MARCAINE) 0.5 % injection 0.1 mL 0.1 mL, Right Eye, Every 5 min, 3 doses, First dose on 08/30/20 at 0945, Last dose on Sun08/30/20 at 0955, Instill to operative eye, Pre-Op Given 08/30/2020 9:44 AM RELAY TESTER HELPER 0.1 mLs Given 08/30/2020 9:30 AM RELAY TESTER HELPER 10 mLs Given 08/30/2020 9:24 AM RELAY TESTER HELPER 0.1 mLs flurbiprofen (OCUFEN) 0.03 % ophthalmic solution 1 drop 1 drop, Right Eye, Every 5 min, 3 doses, First dose on 08/30/20 at 0945, Last dose on Sun08/30/20 at 0955, Instill to operative eye, Pre-Op Given 08/30/2020 9:45 AM RELAY TESTER HELPER 1 drop Given 08/30/2020 9:31 AM RELAY TESTER HELPER 1 drop Given 08/30/2020 9:25 AM RELAY TESTER HELPER 1 drop methazolAMIDE (NEPTAZANE) tablet 50 mg 50 mg, Oral, Once, 1 dose, On Sun08/30/20 at 1045, If NOT allergic to Sulfa, Post-Op Given 08/30/2020 10:58 AM RELAY TESTER HELPER 50 mg phenylephrine (MYDFRIN) 2.5 % ophthalmic solution 1 drop 1 drop, Right Eye, Every 5 min, 3 doses, First dose on Sun08/30/20 at 0945, Last dose on Sun08/30/20 at 0955, Instill to operative eye, Pre-Op Given 08/30/2020 9:44 AM RELAY TESTER HELPER 1 drop Given 08/30/2020 9:31 AM RELAY TESTER HELPER 1 drop Given 08/30/2020 9:25 AM RELAY TESTER HELPER 1 drop tropicamide (MYDRIACYL) 1 % ophthalmic solution 1 drop 1 drop, Right Eye, Every 5 min, 2 doses, First dose on Sun08/30/20 at 0945, Last dose on Sun08/30/20 at 0950, Instill to operative eye, Pre-Op Given 08/30/2020 9:31 AM RELAY TESTER HELPER 1 drop Given 08/30/2020 9:24 AM RELAY TESTER HELPER 1 drop documented in this encounter Active and Recently Administered Medications Times are shown in RELAY TESTER HELPER. Scheduled Medication Order 08/28/2020 08/29/2020 08/30/2020 besifloxacin [...] Valle RN)0931 (Given - Provider: Ashley Valle RN)0944 (Given [...] Intra-Op 1024 (Given - Provid er: Suzan Drew, RN - Comment: right eye) moxifloxacin (VIGAMOX) 0.5 % ophthalmic solution (CANCELED) As needed, Starting on Sun08/30/20 at 1033, Until Sun08/30/20 at 1036, Intra-Op 1033 (Given - Provid er: Boyd Carpio MD) zywvgoxx-wpqqnrilss-zjteibtdb (NEOSPORIN) ophthalmic ointment (CANCELED) As needed, Starting [...] Rule Out 08/28/2020 08/28/2020 08/30/2020 12:50 PM RELAY TESTER HELPER documented as of this encounter Care Teams Telecommunications Analyst Relationship Specialty Start Date End Date Fernie Fulton MD [address] [place] [id number] PCP - General INTERNAL MEDICINE 08/28/20 documented as of this encounter
--- OUTSIDE RECORDS SUMMARY | 2024-09-03 20:21 | XMS_ITS | Clinical Summary ---
Author Organization [facility] Address [facility]. [place], [place] [address] [place] [address] Care Team Providers Care Groundskeeper Supervisor Name Role Phone Fernie Fulton MD Primary Care Provider [phone] Allergies No known active allergies Medications nebivolol 10 MG tablet Take 10 mg by mouth daily. Active pantoprazole EC 40 MG tablet Take 40 mg by mouth daily. Active gabapentin 300 MG capsule Take 300 mg by mouth 2 (two) times daily. Active folic acid 1 MG tablet Take 1 mg by mouth daily. Active Social History Tobacco Use Types Packs/Day Years Used Date Smoking Tobacco: Former Smokeless Tobacco: Never Alcohol Use Standard Drinks/Week Comments Not Currently 0 (1 standard drink = 0.6 oz pur e alcohol) Sex and Gender Information Value Date Recorded Sex Assigned at Not on file Legal Sex Male 2:51 PM DOUGH PANNER Gender Identity Not on file Sexual Orientation Not on file Last Filed Vital Signs Vital Sign [place] Time Taken Comments Blood Pressure 165/99 08/30/2020 10:46 AM DOUGH PANNER did not take his blood pressure medication, and will resume once he is discharged. Pulse 73 08/30/2020 10:46 AM DOUGH PANNER Temperature 36.7 ??C (98.1 ??F) 08/30/2020 1 0:46 AM DOUGH PANNER Respiratory Rate 20 08/30/2020 10:4 6 AM DOUGH PANNER Oxygen Saturation 96% 08/30/2020 10: 46 AM DOUGH PANNER Inhaled Oxygen Concentration - - Weight 86.2 kg (190 lb) 08/30/2020 9:05 AM DOUGH PANNER Height 172.7 cm (5' 8 ) 08/30/2020 9:05 AM DOUGH PANNER Body Mass Index 28.89 08/30/2020 9:05 AM DOUGH PANNER Plan of Treatment Health Maintenance Due Date Last Done Comments Colorectal Cancer Screening Colonoscopy (10 Years) 1965 Annual Physical 1966 Hepatitis C 1981 DTaP, Tdap and Td Vaccines ( 1 - Tdap) 1982 Zoster Vaccines (1 of 2) 2013 COVID-19 Vaccine (1 - 2023-2 5 season) 2024 Influenza Adult (#1) 2024 RSV Immunization or 60+ Years (1 - 1-dose 75+ series) 2038 Meningococcal Vaccine Aged Out No belinda tere eligible based on patient's age to complete this topic Pneumococcal Vaccine: Pediat rics (0 to 5 Years) and At-Risk Patients (6 to 64 Years) Aged Out No longer eligible b ased on patient's age to complete this topic RSV Immunizations Under 20 Months Aged Out No longer eligible based on patient's age to complete this topic Medical Devices Implanted Type Area Paving Foreman Device Identifier Shelf Expiration Date Model / Serial / Lot Iol [employer] - [id number] Implanted:Qty: 1 on 08/30/2020 by Alcon Desir MD at [facility] [employer] [id number] 01/20/2021 [id number] / [id number] / Insurance [facility] Care Teams Groundskeeper Supervisor Relationship Specialty Start Date End Date Fernie Fulton MD [address] [place] [address] PCP - General INTERNAL MEDICINE 08/28/20
--- OUTSIDE RECORDS SUMMARY | 2024-09-03 20:22 | XMS_ITS | Referral Summary ---
Author Organization [facility] Address [address] [place] [address] Care Team Providers Care Pelletizer Operator Name Role Phone Fernie Fulton MD Primary Care Provider [phone] Fernie Fulton MD Unavailable [phone] Encounters Date Type Department Care Team Description 4 4:30 PM DRIVER STARTING GATE - 4 1:31 PM DRIVER STARTING GATE Hospital Encounter [address] [phone] Ping Lopez DO Dehaan, Kevin Patrick, MD Khan, Fatima A., MD Smelser, Katelyn P., MD Acute GI bleeding (Primary Dx); Colitis Discharge Disposition: Discharge to home or self care 4 10:57 AM DRIVER STARTING GATE Anesthesia Event [facility] [address] [place] [phone] Dean Negrete MD 4 10:45 AM DRIVER STARTING GATE - 4 11:15 AM DRIVER STARTING GATE Surgery [facility] [address] [place] [phone] Cristo Funes MD COLON BIOPSY 4 10:07 AM DRIVER STARTING GATE Anesthesia Event [facility] [address] [place] [phone] Terrell Jung, 4 10:00 AM DRIVER STARTING GATE - 4 10:30 AM DRIVER STARTING GATE Surgery [facility] [address] [place] [phone] Cristo Funes MD ESOPHAGOGASTRODUODENOSCOPY BIOPSY 4 Orders Only [facility] [address] [place] [phone] Madie Duran MD from Last 3 Months Allergies Active Allergy Reactions Criticality Noted Date [...] by oral route every day 0 0 12/15/19 16 024 Discontinued meloxicam (MOBIC) 7.5 mg [...] hypertension 12/15/2015 Overview (12/07/2016): HTN (hypertension), benign [place] IV diagnosis 12/15/2015 Overview (12/07/2016): Psychosocial stressors Dyslipidemia 12/15/2015 Overview (12/09/2016): Mixed dyslipidemia Abnormal echocardiography 12/15/2015 Overview (12/09/2016): Abnormal stress echocardiogram Social History Tobacco Use Types Packs/Day Years Used Date Smoking Tobacco: Former Cigarettes 0 04/03/1997 - 1978 Smokeless Tobacco: Never Tobacco Cessation:Counseling Given: No Alcohol Use Standard Drinks/Week Comments Yes 0 (1 standard drink = 0.6 oz pur e alcohol) [facility] Utilities Answer Date Recorded In the past 12 months has [employer] [employer], gas, oil, or water [employer] threatened to shut off services in your home? No 09/01/2024 Social Connection and Isolation Panel [NHANES] A nswer Date Recorded In a typical week, how many times do you talk on the phone with family, friends, or neighbors? Three times a week 09/01/20 How often do you get togethe r with friends or relatives? Twice a week 09/01/2024 Attends Sikh Services Not on file 09/01 Active Member [...] any time in the past 12 m [facility], were you homeless or living in a halfway (including now)? No 09/01/2024 Personal Safety Answer Date Recorded Have you ever been in or are you currently in a harmful physical or emotional relationship or is someone making you feel afraid or unsafe? Denies 08/28/2024 Sex and Gender Information Value Date Recorded Sex Assigned at Not on file Legal Sex Male 3:52 AM DRIVER STARTING GATE Gender Identity Not on file Sexual Orientation Not on file Last Filed Vital Signs Vital Sign Reading Time Taken Comments Blood Pressure 112/64 09/02/2024 12:44 PM DRIVER STARTING GATE Pulse 105 09/02/2024 12:44 PM DRIVER STARTING GATE Temperature 36.9 ??C (98.5 ??F) 09/02/2024 1 2:44 PM DRIVER STARTING GATE Respiratory Rate 18 09/02/2024 12:4 4 PM DRIVER STARTING GATE Oxygen Saturation 98% 09/02/2024 12: 44 PM DRIVER STARTING GATE Inhaled Oxygen Concentration - - Weight 88.4 kg (194 lb 14.2 oz) 08/28/2024 4:30 PM DRIVER STARTING GATE Height 172.7 cm (5' 8 ) 08/28/2024 4:30 PM DRIVER STARTING GATE Body Mass Index 29.63 08/28/2024 4:30 PM DRIVER STARTING GATE Plan of Treatment Not on file Procedures Procedure Name Priority Date/Time Associated Diagnosis Comments EGFR Routine 09/02/2024 5:43 AM DRIVER STARTING GATE DIFFERENTIAL AUTO Routine 09/02/2024 5:43 AM DRIVER STARTING GATE MAGNESIUM Routine 09/02/2024 5:43 AM DRIVER STARTING GATE BASIC METABOLIC PANEL Routine 09/02/2024 5:43 AM DRIVER STARTING GATE CBC WITH AUTO DIFFERENTIAL Routine 09/02 5:43 AM DRIVER STARTING GATE SURGICAL PATHOLOGY Routine 09/01/2024 11:14 AM DRIVER STARTING GATE Colitis COLON BIOPSY 09/01/2024 10:57 AM DRIVER STARTING GATE Colitis COLONOSCOPY 09/01/2024 10:52 AM DRIVER STARTING GATE EGFR Routine 09/01/2024 5:45 AM DRIVER STARTING GATE BASIC METABOLIC PANEL Routine 09/01/2024 5:[address] ABDOMEN PELVIS W CONTRAST IP Routine 12:40 PM DRIVER STARTING GATE DIFFERENTIAL AUTO Routine 08/31/2024 11:59 AM DRIVER STARTING GATE CBC WITH AUTO DIFFERENTIAL Routine 08/31 11:59 AM DRIVER STARTING GATE STOOL CULTURE Routine 08/31/2024 11:59 AM DRIVER STARTING GATE ADD ON LAB TEST Add-On 08/31/2024 11:14 AM DRIVER STARTING GATE CRP (ACUTE PHASE) Routine 08/31/2024 6:01 AM DRIVER STARTING GATE EGFR Routine 08/31/2024 6:01 AM DRIVER STARTING GATE DIFFERENTIAL AUTO Routine 08/31/2024 6:01 AM DRIVER STARTING GATE CBC WITH AUTO DIFFERENTIAL Routine 08/31 6:01 AM DRIVER STARTING GATE MAGNESIUM Routine 08/31/2024 6:01 AM DRIVER STARTING GATE BASIC METABOLIC PANEL Routine 08/31/2024 6:01 AM DRIVER STARTING GATE CALCIUM, IONIZED Routine 08/30/2024 11:56 AM DRIVER STARTING GATE US RUQ IP Routine 08/30/2024 8:29 AM DRIVER STARTING GATE EGFR Routine 08/30/2024 5:23 AM DRIVER STARTING GATE DIFFERENTIAL AUTO Routine 08/30/2024 5:23 AM DRIVER STARTING GATE BASIC METABOLIC PANEL Routine 08/30/2024 5:23 AM DRIVER STARTING GATE CBC WITH AUTO DIFFERENTIAL Routine 08/30 5:23 AM DRIVER STARTING GATE C. DIFFICILE TESTING Routine 08/29/2024 11:07 PM DRIVER STARTING GATE HEMOGLOBIN AND HEMATOCRIT Timed 2023 1:56 PM DRIVER STARTING GATE SURGICAL PATHOLOGY Routine 08/29/2024 10:14 AM DRIVER STARTING GATE Acute GI bleeding ESOPHAGOGASTRODUODENOSCOPY BIOPSY 08/29/2024 10:04 AM DRIVER STARTING GATE Acute GI bleeding EGD 08/29/2024 9:54 AM DRIVER STARTING GATE MANUAL DIFFERENTIAL Routine 08/29/2024 6:29 AM DRIVER STARTING GATE EGFR Routine 08/29/2024 6:29 AM DRIVER STARTING GATE DIFFERENTIAL AUTO Routine 08/29/2024 6:29 AM DRIVER STARTING GATE MAGNESIUM Routine 08/29/2024 6:29 AM DRIVER STARTING GATE CBC WITH AUTO DIFFERENTIAL Routine 08/29 6:29 AM DRIVER STARTING GATE BASIC METABOLIC PANEL Routine 08/29/2024 6:29 AM DRIVER STARTING GATE TRANSFUSE RED BLOOD CELLS Timed 2023 3:22 AM DRIVER STARTING GATE PREPARE RBC STAT 08/29/2024 2:41 AM DRIVER STARTING GATE HEMOGLOBIN AND HEMATOCRIT Timed 2023 12:51 AM DRIVER STARTING GATE B CHECK SAMPLE STAT 08/28/2024 7:16 PM DRIVER STARTING GATE HEMOGLOBIN AND HEMATOCRIT STAT 2023 7:16 PM DRIVER STARTING GATE TYPE AND SCREEN STAT 08/28/2024 7:10 PM DRIVER STARTING GATE from Last 3 Months Results * eGFR (09/02/2024 5:43 AM DRIVER STARTING GATE) eGFR 72 >=60 mL/min/1. 73 m2 Comment: [...] last reviewed 2021. Blood 09/02/2024 5:43 AM DRIVER STARTING GATE 09/02/2024 6:11 AM DRIVER STARTING GATE us Cristo Funes MD LAB BLOOD ORDERABLE S Final Result [facility] [address] Department [place] [address] * (ABNORMAL) Differential, auto (09/02/2024 5:43 AM DRIVER STARTING GATE) Monocyte abs 1.4(H) 0.2 - 0.8 K/cumm Eosinophil abs 0.1 0.0 - 0.5 K/cumm [facility] Neutrophil pct 56.0 % [facility] Comment: Interpretive Data Percent cell count reference ranges are not reported, since discordance with absolute values may lead to misinterpretation of CBC data. Current Interpretive Data was last revised on 2017. Lymphocyte pct 16.0 % [facility] Comment: Interpretive Data Percent cell count reference ranges are not reported, since discordance with absolute values may lead to misinterpretation of CBC data. Current Interpretive Data was last revised on 2017. Monocyte pct 16.8 % [facility] Comment: Interpretive Data Percent cell count reference ranges are not reported, since discordance with absolute values may lead to misinterpretation of CBC data. Current Interpretive Data was last revised on 2017. Eosinophil pct 0.8 % [facility] Comment: Interpretive Data Percent cell count reference ranges are not reported, since discordance with absolute values may lead to misinterpretation of CBC data. Current Interpretive Data was last revised on 2017. Blood 09/02/2024 5:43 AM DRIVER STARTING GATE 09/02/2024 6:11 AM DRIVER STARTING GATE us Cristo Funes MD LAB BLOOD ORDERABLE S Final Result [facility] [address] Department [place] [address] * (ABNORMAL) CBC with auto differential (09/02/2024 5:43 AM DRIVER STARTING GATE) WBC 8.5 3.8 - 9.9 K/cumm Hgb 8.2(L) 13.0 - 17.5 g/dL [facility] Hct 24.9(L) 38.9 - 50.3 % [facility] Plt 228 150 - 400 K/cumm [facility] MPV 9.3 9.1 - 12.3 fL [facility] RBC 2.60(L) 4.30 - 5.80 M/cumm [facility] MCV 95.8 81.3 - 96.4 fL [facility] MCH 31.5 27.1 - 33.3 pg [facility] MCHC 32.9 32.3 - 35.7 g/dL [facility] RDW CV 15.3(H) 11.1 - 14.9 % [facility] RDW SD 53.0(H) 35.7 - 48.1 fL [facility] NRBC abs 0.15(H) 0.00 - 0.01 K/cumm [facility] Blood 09/02/2024 5:43 AM DRIVER STARTING GATE 09/02/2024 6:11 AM DRIVER STARTING GATE Cristo Funes MD LAB BLOOD ORDERABLE S Final Result Performing Organization Address City/[facility]/ZIP Co de Phone Number [facility] [address] [facility] [employer] [place], [place] [id number] * Magnesium (09/02/2024 5:43 AM DRIVER STARTING GATE) Pathologist [facility] Magnesium 1.6 1.4 - 2.5 mg/dL Blood 09/02/2024 5:43 AM DRIVER STARTING GATE 09/02/2024 6:11 AM DRIVER STARTING GATE Cristo Funes MD LAB BLOOD ORDERABLE S Final Result Performing Organization Address City/[facility]/ZIP Co de Phone Number [facility] [address] [facility] [place] [address] * (ABNORMAL) Basic metabolic panel (09/02/2024 5:43 AM DRIVER STARTING GATE) Sodium 139 135 - 145 mmol/L Potassium, pl 3.1(L) 3.3 - 4.9 mmol/L [facility] Chloride 104 97 - 110 mmol/L [facility] CO2 23 22 - 32 mmol/L [facility] Anion gap 12 2 - 15 mmol/L [facility] BUN 5(L) 6 - 25 mg/dL [facility] Creatinine 1.15 0.80 - 1.30 mg/dL [facility] Glucose 112 70 - 199 mg/dL [facility] Comment: Interpretive Data Fasting glucose >/= 126 [...] 2022. Calcium 7.8(L) 8.5 - 10.3 mg/dL [facility] Blood 09/02/2024 5:43 AM DRIVER STARTING GATE 09/02/2024 6:11 AM DRIVER STARTING GATE Cristo Funes MD LAB BLOOD ORDERABLE S Final Result Performing Organization Address City/State/[facility] Co de Phone Number [facility] [address] [facility] Department [place] [address] * Surgical pathology (09/01/2024 11:14 AM DRIVER STARTING GATE) Tissue (Colon, Biopsy) 09/01/2024 11:14 AM DRIVER STARTING GATE Comment:For colitis Tissue (Colon, Biopsy) 09/01/2024 11:15 AM DRIVER STARTING GATE Comment:For colitis Narrative PATHOLOGY [facility] - 09/02/2024 8:16 AM DRIVER STARTING GATE [place] [id number] [place], [place] ??[address] Tele: ?? Dara Paz MD - Clinical Systems Educator Note to Patients: This report may contain [...] REPORT Patient Name: ??JONES SANABRIA Address: ??[address], [place] ??[address] Gender: ??M : ??1965 (Age: 59) Service: ??Cardiology Location: ??[id number], ?? Hospital #: ??[id number] Patient Type: ??[facility] Accession #: ? [id number] Taken: ? 09/01/2024 Received ? 09/01/2024 Reported: ? 09/02/2024 Physician(s): ? Awa Reed M.D. DIAGNOSIS: Large intestine, right colon, biopsy: ? - Mild active colitis with acute inflammatory exudate (see comment) Large intestine, left colon, biopsy: ? - Mild active colitis with acute inflammatory exudate [facility]/09/02/2024 08:16 Examining Pathologist: Karine Crabtree M.D. Report [...] GROSS DESCRIPTION: A. ??Received in formalin labeled JONESEDITH HERNANDEZINTON and right colon biopsy are multiple young tissue fragments, 2 x 0.2 x 0.2 cm in aggregate. ??The specimen is filtered and entirely submitted in A1. B. ??Received in formalin labeled JONES WIGGINTON and left colon biopsy are multiple young tissue fragments, 1.5 x 0.2 x 0.2 cm in aggregate. ??The specimen is filtered and entirely submitted in B1. ?? jxi/09/01/2024 13:23 ? CAIN MAZARIEGOS MICROSCOPIC DESCRIPTION: Sections of the right colon [...] architecture is maintained. Clerical Data Follows A; [id number] B; [id number] REPORT IMAGES AND/OR SCANNED DOCUMENTS ONLY VIEWABLE IN PDF FORMAT The immunohistochemical test(s) cited in this report, if any, was developed and its performance characteristics determined by [facility]. ??It has not been cleared or approved by the U.S. Food and Drug Administration. ??The FDA has determined that such clearance or approval is not necessary. ??This test is used for clinical purposes. ??It should not be regarded as investigational or for research. ??[facility] is certified under the Clinical Laboratory [...] part or completely in the following laboratories: [facility], [facility] [facility], [place] [address] [facility], [address] [place] [address], [place] [address]. Cristo Funes MD LAB PATHOLOGY ORDER HOLA Final Result PATHOLOGY [facility] Laboratory Receiving [address] [place] [address] * Colonoscopy (09/01/2024 10:52 AM DRIVER STARTING GATE) Anatomical Region Laterality Modality Other Narrative Procedure Note Cristo Funes MD - 09/01/2024 10:52 AM CST ENDOSCOPY LAB Patient Name: Jones Hernandezaviscalvin Procedure Date: 09/01/2024 10:52AM Admit Type: Inpatient Room: [facility] Date of : 1965 Instrument Name: [id number] [...] Final Result * eGFR (09/01/2024 5:45 AM DRIVER STARTING GATE) eGFR 82 >=60 mL/min/1. 73 m2 Comment: [...] last reviewed 2021. Blood 09/01/2024 5:45 AM DRIVER STARTING GATE 09/01/2024 6:26 AM DRIVER STARTING GATE us Cayden Smiley MD LAB BLOOD ORDERABLES Final Res ult [facility] [address] Department [place] [address] * (ABNORMAL) Basic metabolic panel (09/01/2024 5:45 AM DRIVER STARTING GATE) Pathologist [facility] Sodium 137 135 - 145 mmol/L Potassium, pl 3.2(L) 3.3 - 4.9 mmol/L [facility] Chloride 100 97 - 110 mmol/L [facility] CO2 24 22 - 32 mmol/L [facility] Anion gap 13 2 - 15 mmol/L [facility] BUN 7 6 - 25 mg/dL [facility] Creatinine 1.04 0.80 - 1.30 mg/dL [facility] Glucose 128 70 - 199 mg/dL [facility] Comment: Interpretive Data Fasting glucose >/= 126 [...] 2022. Calcium 8.0(L) 8.5 - 10.3 mg/dL [facility] Blood 09/01/2024 5:45 AM DRIVER STARTING GATE 09/01/2024 6:26 AM DRIVER STARTING GATE us Cayden Smiley MD LAB BLOOD ORDERABLES Final Res ult [facility] [address] Department [place] [address] * CT Abdomen Pelvis W Contrast (08/31/2024 12:40 PM DRIVER STARTING GATE) Anatomical Region Laterality Modality Body N/A Computed Tomogra phy 08/31/2024 4:39 PM DRIVER STARTING GATE Impressions 08/31/2024 4:39 PM DRIVER STARTING GATE 1. ??Diffuse pancolitis, likely infectious/inflammatory. 2. ??Circumferential urinary bladder wall thickening, which may represent reactive changes or superimposed cystitis. ??Mural thickening is exaggerated by degree of decompression. Electronically signed by: Dejan Chino D.O. Narrative 08/31/2024 4:39 PM DRIVER STARTING GATE EXAMINATION: CT ABDOMEN PELVIS W CONTRAST HISTORY: [...] No acute abnormality. ??Degenerative changes. Procedure Note eDjan Chino, DO - 08/31/2024 EXAMINATION: CT ABDOMEN [...] decompression. Electronically signed by: Dejan Chino D.O. Cayden Smiley MD IM CT PROCEDURES Final Result * (ABNORMAL) Differential, auto (08/31/2024 11:59 AM DRIVER STARTING GATE) Neutrophil abs 6.3 1.5 - 6.5 K/cumm Imm gran abs 0.4(H) 0.0 - 0.1 K/cumm [facility] Lymphocyte abs 1.0 0.8 - 3.3 K/cumm [facility] Monocyte abs 1.6(H) 0.2 - 0.8 K/cumm [facility] Eosinophil abs 0.0 0.0 - 0.5 K/cumm [facility] Basophil abs 0.0 0.0 - 0.1 K/cumm [facility] Neutrophil pct 67.2 % [facility] Comment: Interpretive Data Percent cell count reference ranges are not reported, since discordance with absolute values may lead to misinterpretation of CBC data. Current Interpretive Data was last revised on 2017. Imm gran pct 4.2 % [facility] Comment: Interpretive Data Percent cell count reference ranges are not reported, since discordance with absolute values may lead to misinterpretation of CBC data. Current Interpretive Data was last revised on 2017. Lymphocyte pct 10.5 % [facility] Comment: Interpretive Data Percent cell count reference ranges are not reported, since discordance with absolute values may lead to misinterpretation of CBC data. Current Interpretive Data was last revised on 2017. Monocyte pct 17.4 % [facility] Comment: Interpretive Data Percent cell count reference ranges are not reported, since discordance with absolute values may lead to misinterpretation of CBC data. Current Interpretive Data was last revised on 2017. Eosinophil pct 0.3 % [facility] Comment: Interpretive Data Percent cell count reference ranges are not reported, since discordance with absolute values may lead to misinterpretation of CBC data. Current Interpretive Data was last revised on 2017. Basophil pct 0.4 % [facility] Comment: Interpretive Data Percent cell count reference ranges are not reported, since discordance with absolute values may lead to misinterpretation of CBC data. Current Interpretive Data was last revised on 2017. Blood 08/31/2024 11:5 9 AM DRIVER STARTING GATE 08/31/2024 11:59 AM DRIVER STARTING GATE us Cayden Smiley MD LAB BLOOD ORDERABLES Final Res ult [facility] [address] Department [place] [address] * (ABNORMAL) CBC with auto differential (08/31/2024 11:59 AM DRIVER STARTING GATE) WBC 9.3 3.8 - 9.9 K/cumm Hgb 9.7(L) 13.0 - 17.5 g/dL [facility] Hct 28.5(L) 38.9 - 50.3 % [facility] Plt 165 150 - 400 K/cumm [facility] MPV 10.0 9.1 - 12.3 fL [facility] RBC 2.98(L) 4.30 - 5.80 M/cumm [facility] MCV 95.6 81.3 - 96.4 fL [facility] MCH 32.6 27.1 - 33.3 pg [facility] MCHC 34.0 32.3 - 35.7 g/dL [facility] RDW CV 15.0(H) 11.1 - 14.9 % [facility] RDW SD 51.8(H) 35.7 - 48.1 fL [facility] NRBC abs 0.09(H) 0.00 - 0.01 K/cumm [facility] Blood 08/31/2024 11:5 9 AM DRIVER STARTING GATE 08/31/2024 12:11 PM DRIVER STARTING GATE Cayden Smiley MD LAB BLOOD ORDERABLES Final Res ult Performing Organization Address City/[facility]/ZIP Co de Phone Number [facility] [address] Department of [employer] [place], [place] [id number] * Stool culture Stool Rectum (08/31/2024 11:59 AM DRIVER STARTING GATE) Pathologist [facility] Direct Specimen Exam Shiga Toxin Testing: Negative for: Shigatoxin of enterohemorrhagic E.coli. Report Final Report: No Salmonella, Shigella, Aeromonas, Plesiomonas, Yersinia, Campylobacter, or E.coli O157:H7 isolated [facility] Stool (Rectum) 08/31/2024 11 :59 AM DRIVER STARTING GATE 08/31/2024 3:13 PM DRIVER STARTING GATE Narrative [facility] - 09/03/2024 2:00 PM DRIVER STARTING GATE This specimen is screened for the presence of Aeromonas, Campylobacter, E.coli-0157:H7, Plesiomonas, Salmonella, Shigella, Shiga Toxin producing E. coli, and Yersinia. Ai NARAYAN LAB MICROBIOLOGY - GENERAL OR DERABLES Final Result Performing Organization Address [facility] Co de Phone Number [facility] [address] Department [employer] [place], [place] [phone] * CRP - Add on lab test (08/31/2024 11:14 AM DRIVER STARTING GATE) Pathologist [facility] Acceptable Yes Blood 08/31/2024 11:1 4 AM DRIVER STARTING GATE 08/31/2024 11:14 AM DRIVER STARTING GATE Narrative [facility] - 08/31/2024 11:14 AM DRIVER STARTING GATE Name of Test->CRP Ai NARAYAN LAB BLOOD ORDERABLES Final Re sult Performing Organization Address [facility] Co de Phone Number [facility] [address] Department [employer] [place], [place] [id number] * eGFR (08/31/2024 6:01 AM DRIVER STARTING GATE) Pathologist [facility] eGFR 89 >=60 mL/min/1. 73 m2 Comment: [...] last reviewed 2021. Blood 08/31/2024 6:01 AM DRIVER STARTING GATE 08/31/2024 7:08 AM DRIVER STARTING GATE us Cayden Smiley MD LAB BLOOD ORDERABLES Final Res ult [facility] [address] Department [place] [address] * (ABNORMAL) Differential, auto (08/31/2024 6:01 AM DRIVER STARTING GATE) Neutrophil abs 8.4(H) 1.5 - 6.5 K/cumm Imm gran abs 0.3(H) 0.0 - 0.1 K/cumm [facility] Lymphocyte abs 1.3 0.8 - 3.3 K/cumm [facility] Monocyte abs 2.0(H) 0.2 - 0.8 K/cumm [facility] Eosinophil abs 0.0 0.0 - 0.5 K/cumm [facility] Basophil abs 0.1 0.0 - 0.1 K/cumm [facility] Neutrophil pct 69.4 % [facility] Comment: Interpretive Data Percent cell count reference ranges are not reported, since discordance with absolute values may lead to misinterpretation of CBC data. Current Interpretive Data was last revised on 2017. Imm gran pct 2.3 % [facility] Comment: Interpretive Data Percent cell count reference ranges are not reported, since discordance with absolute values may lead to misinterpretation of CBC data. Current Interpretive Data was last revised on 2017. Lymphocyte pct 10.7 % [facility] Comment: Interpretive Data Percent cell count reference ranges are not reported, since discordance with absolute values may lead to misinterpretation of CBC data. Current Interpretive Data was last revised on 2017. Monocyte pct 16.6 % [facility] Comment: Interpretive Data Percent cell count reference ranges are not reported, since discordance with absolute values may lead to misinterpretation of CBC data. Current Interpretive Data was last revised on 2017. Eosinophil pct 0.3 % [facility] Comment: Interpretive Data Percent cell count reference ranges are not reported, since discordance with absolute values may lead to misinterpretation of CBC data. Current Interpretive Data was last revised on 2017. Basophil pct 0.7 % [facility] Comment: Interpretive Data Percent cell count reference ranges are not reported, since discordance with absolute values may lead to misinterpretation of CBC data. Current Interpretive Data was last revised on 2017. Blood 08/31/2024 6:01 AM DRIVER STARTING GATE 08/31/2024 7:08 AM DRIVER STARTING GATE us Cayden Smiley MD LAB BLOOD ORDERABLES Final Res ult [facility] [address] Department [place] [address] * (ABNORMAL) CBC with auto differential (08/31/2024 6:01 AM DRIVER STARTING GATE) WBC 12.1(H) 3.8 - 9.9 K/cumm Hgb 10.5(L) 13.0 - 17.5 g/dL [facility] Comment:Hemoglobin delta due to apparent blood transfusion. Hct 31.2(L) 38.9 - 50.3 % [facility] Plt 149(L) 150 - 400 K/cumm [facility] MPV 10.6 9.1 - 12.3 fL [facility] RBC 3.24(L) 4.30 - 5.80 M/cumm [facility] MCV 96.3 81.3 - 96.4 fL [facility] MCH 32.4 27.1 - 33.3 pg [facility] MCHC 33.7 32.3 - 35.7 g/dL [facility] RDW CV 15.0(H) 11.1 - 14.9 % [facility] RDW SD 51.6(H) 35.7 - 48.1 fL [facility] NRBC abs 0.15(H) 0.00 - 0.01 K/cumm [facility] Blood 08/31/2024 6:01 AM DRIVER STARTING GATE 08/31/2024 7:08 AM DRIVER STARTING GATE us Cayden Smiley MD LAB BLOOD ORDERABLES Final Res ult Performing Organization Address City/[facility] Co de Phone Number [facility] [address] [place] [address] * (ABNORMAL) CRP (acute phase) (08/31/2024 6:01 AM DRIVER STARTING GATE) CRP 85.5(H) <=10.0 mg/L Blood 08/31/2024 6:01 AM DRIVER STARTING GATE 08/31/2024 7:08 AM DRIVER STARTING GATE us Cayden Smiley MD LAB BLOOD ORDERABLES Final Res ult Performing Organization Address City/State/[facility] Co de Phone Number [facility] [address] [place] [address] * Magnesium (08/31/2024 6:01 AM DRIVER STARTING GATE) Magnesium 1.6 1.4 - 2.5 mg/dL Blood 08/31/2024 6:01 AM DRIVER STARTING GATE 08/31/2024 7:08 AM DRIVER STARTING GATE Cayden Smiley MD LAB BLOOD ORDERABLES Final Res ult Performing Organization Address City/[facility]/ZIP Co de Phone Number [facility] [address] [place] [address] * Basic metabolic panel (08/31/2024 6:01 AM DRIVER STARTING GATE) Pathologist [facility] Sodium 136 135 - 145 mmol/L Potassium, pl 3.5 3.3 - 4.9 mmol/L [facility] Chloride 100 97 - 110 mmol/L [facility] CO2 25 22 - 32 mmol/L [facility] Anion gap 11 2 - 15 mmol/L [facility] BUN 10 6 - 25 mg/dL [facility] Creatinine 0.97 0.80 - 1.30 mg/dL [facility] Glucose 132 70 - 199 mg/dL [facility] Comment: Interpretive Data Fasting glucose >/= 126 [...] 2022. Calcium 8.6 8.5 - 10.3 mg/dL [facility] Blood 08/31/2024 6:01 AM DRIVER STARTING GATE 08/31/2024 7:08 AM DRIVER STARTING GATE Cayden Smiley MD LAB BLOOD ORDERABLES Final Res ult Performing Organization Address City/[facility]/ZIP Co de Phone Number [facility] [address] Department [place] [address] * (ABNORMAL) Calcium, ionized (08/30/2024 11:56 AM DRIVER STARTING GATE) Calcium, Ionized 3.61(L) 4.50 - 5.10 mg/dL Blood 08/30/2024 11:5 6 AM DRIVER STARTING GATE 08/30/2024 11:57 AM DRIVER STARTING GATE us Cayden Smiley MD LAB BLOOD ORDERABLES Final Res ult [facility] [address] Department [place] [address] * US RUQ (08/30/2024 8:29 AM DRIVER STARTING GATE) Anatomical Region Laterality Modality Abdomen N/A Ultrasound 08/30/2024 8:36 AM DRIVER STARTING GATE Impressions 08/30/2024 8:36 AM DRIVER STARTING GATE 1. Increased hepatic echogenicity consistent with hepatic steatosis. 2. ??Gallbladder containing stones and sludge without evidence of acute cholecystitis. Electronically signed by: Dean Pichardo M.D. Narrative 08/30/2024 8:36 AM DRIVER STARTING GATE EXAMINATION: ??LIMITED ABDOMINAL SONOGRAM HISTORY: ??Concern for [...] cholecystitis. Electronically signed by: Dean Pichardo M.D. Cristo Funes MD [facility] US PROCEDURES F inal Result * eGFR (08/30/2024 5:23 AM DRIVER STARTING GATE) eGFR 83 >=60 mL/min/1. 73 m2 Comment: [...] last reviewed 2021. Blood 08/30/2024 5:23 AM DRIVER STARTING GATE 08/30/2024 6:41 AM DRIVER STARTING GATE us Cayden Smiley MD LAB BLOOD ORDERABLES Final Res ult [facility] [address] Department [place] [address] * (ABNORMAL) Differential, auto (08/30/2024 5:23 AM DRIVER STARTING GATE) Neutrophil abs 6.2 1.5 - 6.5 K/cumm Imm gran abs 0.1 0.0 - 0.1 K/cumm [facility] Lymphocyte abs 1.0 0.8 - 3.3 K/cumm [facility] Monocyte abs 1.0(H) 0.2 - 0.8 K/cumm [facility] Eosinophil abs 0.0 0.0 - 0.5 K/cumm [facility] Basophil abs 0.0 0.0 - 0.1 K/cumm [facility] Neutrophil pct 74.3 % [facility] Comment: Interpretive Data Percent cell count reference ranges are not reported, since discordance with absolute values may lead to misinterpretation of CBC data. Current Interpretive Data was last revised on 2017. Imm gran pct 1.1 % [facility] Comment: Interpretive Data Percent cell count reference ranges are not reported, since discordance with absolute values may lead to misinterpretation of CBC data. Current Interpretive Data was last revised on 2017. Lymphocyte pct 11.6 % [facility] Comment: Interpretive Data Percent cell count reference ranges are not reported, since discordance with absolute values may lead to misinterpretation of CBC data. Current Interpretive Data was last revised on 2017. Monocyte pct 12.4 % [facility] Comment: Interpretive Data Percent cell count reference ranges are not reported, since discordance with absolute values may lead to misinterpretation of CBC data. Current Interpretive Data was last revised on 2017. Eosinophil pct 0.4 % [facility] Comment: Interpretive Data Percent cell count reference ranges are not reported, since discordance with absolute values may lead to misinterpretation of CBC data. Current Interpretive Data was last revised on 2017. Basophil pct 0.2 % [facility] Comment: Interpretive Data Percent cell count reference ranges are not reported, since discordance with absolute values may lead to misinterpretation of CBC data. Current Interpretive Data was last revised on 2017. Blood 08/30/2024 5:23 AM DRIVER STARTING GATE 08/30/2024 6:42 AM DRIVER STARTING GATE us Cayden Smiley MD LAB BLOOD ORDERABLES Final Res ult [facility] [address] Department [place] [address] * (ABNORMAL) CBC with auto differential (08/30/2024 5:23 AM DRIVER STARTING GATE) WBC 8.4 3.8 - 9.9 K/cumm Hgb 7.8(L) 13.0 - 17.5 g/dL [facility] Hct 23.3(L) 38.9 - 50.3 % [facility] Plt 74(L) 150 - 400 K/cumm [facility] MPV 10.9 9.1 - 12.3 fL [facility] RBC 2.39(L) 4.30 - 5.80 M/cumm [facility] MCV 97.5(H) 81.3 - 96.4 fL [facility] MCH 32.6 27.1 - 33.3 pg [facility] MCHC 33.5 32.3 - 35.7 g/dL [facility] RDW CV 15.8(H) 11.1 - 14.9 % [facility] RDW SD 54.4(H) 35.7 - 48.1 fL [facility] NRBC abs 0.12(H) 0.00 - 0.01 K/cumm [facility] Blood 08/30/2024 5:23 AM DRIVER STARTING GATE 08/30/2024 6:42 AM DRIVER STARTING GATE Cayden Smiley MD LAB BLOOD ORDERABLES Final Res ult Performing Organization Address City/[facility]/ZIP Co de Phone Number [facility] [address] [place] [address] * (ABNORMAL) Basic metabolic panel (08/30/2024 5:23 AM DRIVER STARTING GATE) Sodium 134(L) 135 - 145 mmol/L Potassium, pl 2.9(L) 3.3 - 4.9 mmol/L [facility] Chloride 97 97 - 110 mmol/L [facility] CO2 27 22 - 32 mmol/L [facility] Anion gap 10 2 - 15 mmol/L [facility] BUN 22 6 - 25 mg/dL [facility] Creatinine 1.03 0.80 - 1.30 mg/dL [facility] Glucose 106 70 - 199 mg/dL [facility] Comment: Interpretive Data Fasting glucose >/= 126 [...] 2022. Calcium 7.5(L) 8.5 - 10.3 mg/dL [facility] Blood 08/30/2024 5:23 AM DRIVER STARTING GATE 08/30/2024 6:41 AM DRIVER STARTING GATE us Cayden Smiley MD LAB BLOOD ORDERABLES Final Res ult Performing Organization Address City/[facility]/ZIP Co de Phone Number [facility] [address] [place] [address] * C. difficile testing Stool (08/29/2024 11:07 PM DRIVER STARTING GATE) GDH Result Positive Negative Toxin Result Negative Negative [facility] C. diff result Negative, free toxin. Negative, free toxin [facility] C. diff interp GDH+/toxin- results almost never represent true C. difficile infection (CDI). Results may represent ??colonization with C. difficile without CDI, detection of a bacteria other than toxigenic C. difficile, or a false negative toxin assay. If there is a high index of suspicion for CDI, additional testing by PCR is available upon request. [facility] Stool 08/29/2024 11:0 7 PM DRIVER STARTING GATE 08/29/2024 11:07 PM DRIVER STARTING GATE Kelby Gore MD LAB MICROBIOLOGY - GENERAL ORDER HOLA Final Result [facility] [address] Department of [employer] [place], [place] [id number] * (ABNORMAL) Hemoglobin and hematocrit (08/29/2024 1:56 PM DRIVER STARTING GATE) Hgb 8.3(L) 13.0 - 17.5 g/dL Hct 24.5(L) 38.9 - 50.3 % [facility] Blood 08/29/2024 1:56 PM DRIVER STARTING GATE 08/29/2024 2:03 PM DRIVER STARTING GATE Cristo Funes MD LAB BLOOD ORDERABLE S Final Result Performing Organization Address City/[facility] Co de Phone Number [facility] [address] Department [place] [address] * Surgical pathology (08/29/2024 10:14 AM DRIVER STARTING GATE) Tissue (Esophageal biopsy) 08/29/2024 10:14 AM DRIVER STARTING GATE Narrative PATHOLOGY [facility] - 09/02/2024 8:13 AM DRIVER STARTING GATE [place] [id number] [place], [place] ??[address] Tele: ?? Dara Paz MD - Clinical Systems Educator Note to Patients: This report may contain [...] REPORT Patient Name: ??JONES SANABRIA Address: ??[address] [place], [place] ??[address] Gender: ??M : ??1965 (Age: 59) Service: ??Cardiology Location: ??[id number], ?? Hospital #: ??[id number] Patient Type: ??[facility] IN[facility]IENT Accession #: ? [id number] Taken: ? 08/29/2024 Received ? 08/29/2024 Reported: ? 09/02/2024 Physician(s): ? Awa Reed M.D. DIAGNOSIS: Esophagus, lower third, mucosal biopsy: [...] features are evident. Clerical Data Follows A; [id number], [id number], 82524, 80481 REPORT IMAGES AND/OR SCANNED DOCUMENTS ONLY VIEWABLE IN PDF FORMAT The immunohistochemical test(s) cited in this report, if any, was developed and its performance characteristics determined by [facility] Pathology Department. ??It has not been cleared or approved by the U.S. Food and Drug Administration. ??The FDA has determined that such clearance or approval is not necessary. ??This test is used for clinical purposes. ??It should not be regarded as investigational or for research. ??[facility] Laboratory is certified under the Clinical Laboratory [...] part or completely in the following laboratories: [facility], [facility], [address] [place] [address]. Cristo Funes MD LAB PATHOLOGY ORDER HOLA Final Result PATHOLOGY [facility] Laboratory Receiving [address] [place] [address] * EGD (08/29/2024 9:54 AM DRIVER STARTING GATE) Anatomical Region Laterality Modality Other Narrative Procedure Note Cristo Funes MD - 08/29/2024 9:54 AM CST ENDOSCOPY LAB Patient Name: Jones Sanabria Procedure Date: 08/29/2024 9:54 AM Admit Type: Inpatient Room: [facility] Date of : 1965 Instrument Name: [id number] [...] 08/29/2024 9:54 AM Scope In: Scope Out: Cristo Funes MD ENDOSCOPY PROCEDURE S Final Result * Transfuse RBC (08/29/2024 7:52 AM DRIVER STARTING GATE) Blood Kelby Gore MD BLOOD TRANSFUSION ORDERABLES Fin al Result [facility] [address] Department [place] [address] * (ABNORMAL) eGFR (08/29/2024 6:29 AM DRIVER STARTING GATE) eGFR 59(L) >=60 mL/min/1. 73 m2 Comment: [...] last reviewed 2021. Blood 08/29/2024 6:29 AM DRIVER STARTING GATE 08/29/2024 6:43 AM DRIVER STARTING GATE Scott Brantley MD LAB BLOOD ORDERABLES Fin al Result [facility] [address] Department [place] [address] * (ABNORMAL) Differential, auto (08/29/2024 6:29 AM DRIVER STARTING GATE) Neutrophil abs 7.4(H) 1.5 - 6.5 K/cumm Imm gran abs 0.1 0.0 - 0.1 K/cumm [facility] Lymphocyte abs 0.9 0.8 - 3.3 K/cumm [facility] Monocyte abs 1.1(H) 0.2 - 0.8 K/cumm [facility] Eosinophil abs 0.0 0.0 - 0.5 K/cumm [facility] Basophil abs 0.0 0.0 - 0.1 K/cumm [facility] Neutrophil pct 77.8 % [facility] Comment: Interpretive Data Percent cell count reference ranges are not reported, since discordance with absolute values may lead to misinterpretation of CBC data. Current Interpretive Data was last revised on 2017. Imm gran pct 0.8 % [facility] Comment: Interpretive Data Percent cell count reference ranges are not reported, since discordance with absolute values may lead to misinterpretation of CBC data. Current Interpretive Data was last revised on 2017. Lymphocyte pct 9.4 % [facility] Comment: Interpretive Data Percent cell count reference ranges are not reported, since discordance with absolute values may lead to misinterpretation of CBC data. Current Interpretive Data was last revised on 2017. Monocyte pct 11.6 % [facility] Comment: Interpretive Data Percent cell count reference ranges are not reported, since discordance with absolute values may lead to misinterpretation of CBC data. Current Interpretive Data was last revised on 2017. Eosinophil pct 0.2 % [facility] Comment: Interpretive Data Percent cell count reference ranges are not reported, since discordance with absolute values may lead to misinterpretation of CBC data. Current Interpretive Data was last revised on 2017. Basophil pct 0.2 % [facility] Comment: Interpretive Data Percent cell count reference ranges are not reported, since discordance with absolute values may lead to misinterpretation of CBC data. Current Interpretive Data was last revised on 2017. Blood 08/29/2024 6:29 AM DRIVER STARTING GATE 08/29/2024 6:41 AM DRIVER STARTING GATE Scott Brantley MD LAB BLOOD ORDERABLES Fin al Result [facility] [address] Department [place] [address] * (ABNORMAL) CBC with auto differential (08/29/2024 6:29 AM DRIVER STARTING GATE) WBC 9.5 3.8 - 9.9 K/cumm Hgb 8.0(L) 13.0 - 17.5 g/dL [facility] Hct 23.8(L) 38.9 - 50.3 % [facility] Plt 58(L) 150 - 400 K/cumm [facility] MPV 10.9 9.1 - 12.3 fL [facility] RBC 2.44(L) 4.30 - 5.80 M/cumm [facility] MCV 97.5(H) 81.3 - 96.4 fL [facility] MCH 32.8 27.1 - 33.3 pg [facility] MCHC 33.6 32.3 - 35.7 g/dL [facility] RDW CV 15.3(H) 11.1 - 14.9 % [facility] RDW SD 52.5(H) 35.7 - 48.1 fL [facility] NRBC abs 0.13(H) 0.00 - 0.01 K/cumm [facility] Blood 08/29/2024 6:29 AM DRIVER STARTING GATE 08/29/2024 6:41 AM DRIVER STARTING GATE Scott Brantley MD LAB BLOOD ORDERABLES Fin al Result Performing Organization Address [facility] de Phone Number [facility] [address] [place] [address] * (ABNORMAL) Manual Differential (08/29/2024 6:29 AM DRIVER STARTING GATE) Differential Auto RBC morphology Normal [facility] Platelet estimate Decreased(A ) [facility] Morphology scrn See Comment [facility] Comment:PLT: Platelet morpho logy normal Blood 08/29/2024 6:29 AM DRIVER STARTING GATE 08/29/2024 6:41 AM DRIVER STARTING GATE Scott Brantley MD LAB BLOOD ORDERABLES Fin al Result Performing Organization Address [facility] Co de Phone Number [facility] [address] [place] [address] * Magnesium (08/29/2024 6:29 AM DRIVER STARTING GATE) Magnesium 1.8 1.4 - 2.5 mg/dL Blood 08/29/2024 6:29 AM DRIVER STARTING GATE 08/29/2024 6:43 AM DRIVER STARTING GATE Roman Wells NP LAB BLOOD ORDERABLES Final Result [facility] [address] [place] [address] * (ABNORMAL) Basic metabolic panel (08/29/2024 6:29 AM DRIVER STARTING GATE) Pathologist [facility] Sodium 138 135 - 145 mmol/L Potassium, pl 3.4 3.3 - 4.9 mmol/L [facility] Chloride 99 97 - 110 mmol/L [facility] CO2 28 22 - 32 mmol/L [facility] Anion gap 11 2 - 15 mmol/L [facility] BUN 34(H) 6 - 25 mg/dL [facility] Creatinine 1.37(H) 0.80 - 1.30 mg/dL [facility] Glucose 141 70 - 199 mg/dL [facility] Comment: Interpretive Data Fasting glucose >/= 126 [...] 2022. Calcium 7.4(L) 8.5 - 10.3 mg/dL [facility] Blood 08/29/2024 6:29 AM DRIVER STARTING GATE 08/29/2024 6:43 AM DRIVER STARTING GATE us Scott Brantley MD LAB BLOOD ORDERABLES Fin al Result [facility] [address] [place] [address] * Prepare RBC (08/29/2024 2:41 AM DRIVER STARTING GATE) Product code [id number] Unit Number [id number] [facility] Product Blood Type BPOS [facility] Dispense Status PRESUMED TRANSFUSED [facility] Blood 08/29/2024 2:41 AM DRIVER STARTING GATE 08/29/2024 2:40 AM DRIVER STARTING GATE Scott Brantley MD BLOOD BANK PRODUCT ORDER HOLA Final Result Performing Organization Address [facility] Co de Phone Number [facility] [address] [place] [address] * (ABNORMAL) Hemoglobin and hematocrit (08/29/2024 12:51 AM DRIVER STARTING GATE) Hgb 7.3(L) 13.0 - 17.5 g/dL Hct 22.7(L) 38.9 - 50.3 % [facility] Blood 08/29/2024 12:5 1 AM DRIVER STARTING GATE 08/29/2024 12:51 AM DRIVER STARTING GATE Cristo Funes MD LAB BLOOD ORDERABLE S Final Result Performing Organization Address [facility] Co de Phone Number [facility] [address] [place] [address] * Check Sample (08/28/2024 7:16 PM DRIVER STARTING GATE) ABO Rh B Positive MBC HCLL OTHER 08/28/2024 7:16 PM DRIVER STARTING GATE 08/28/2024 8:04 PM DRIVER STARTING GATE Scott Brantley MD LAB BLOOD ORDERABLES Fin al Result Performing Organization Address [facility] Co de Phone Number [facility] [address] [facility] [place] [address] MBC * (ABNORMAL) Hemoglobin and hematocrit (08/28/2024 7:16 PM DRIVER STARTING GATE) Hgb 8.6(L) 13.0 - 17.5 g/dL Hct 26.0(L) 38.9 - 50.3 % [facility] Blood 08/28/2024 7:16 PM DRIVER STARTING GATE 08/28/2024 7:16 PM DRIVER STARTING GATE Roman Wells NP LAB BLOOD ORDERABLES Final Result Performing Organization Address [facility]/State/ZIP Co de Phone Number [facility] [address] Department of Laboratories [place], [place] [id number] * Type and screen (08/28/2024 7:10 PM DRIVER STARTING GATE) ABO Rh B Positive Elvin, indirect Negative [facility] Blood 08/28/2024 7:10 PM DRIVER STARTING GATE 08/28/2024 7:21 PM DRIVER STARTING GATE Narrative [facility] - 08/28/2024 7:59 PM DRIVER STARTING GATE If not done within 72 hours prior to infusion. Has the patient had Daratumumab or Isatuximab in the past 6 months?->Unknown Scott Brantley MD LAB BLOOD BANK TEST ORDE RABLES Final Result Performing Organization Address [facility] Co de Phone Number [facility] [address] Department [place] [address] from Last 3 Months Insurance CHO[place] Advance Direct[place] For more information, please contact: [phone] * Full Code (Latest Code Status on File) Date Activated Date Inactivated Comments 08/28/2024 5:56 PM 09/02/2024 5:31 PM Care Teams Pelletizer Operator Relationship Specialty Start Date End Date Kopjas, Fernie C., MD [address] [place] [address] PCP - General 06/13/19 Fernie Fulton MD [address] [place] [address] Internal Medicine 06/13/19
--- OUTSIDE RECORDS SUMMARY | 2024-09-03 20:22 | XMS_ITS | Encounter Summary ---
Author Organization [facility] Healthcare Address [address] [place] [address] Care Team Providers Care Swimming Pool Attendant Name Role Phone Fernie Fulton MD Primary Care Provider Fernie Fulton MD Unavailable [phone] Encounter Details Date Type Department Care Team (Late st Contact Info) Description 06/13/2019 5:14 PM CDT - 06/15/2019 1:39 PM CDT Hospital Encounter [facility] ADMIT Unknown, Nick Reagan MD [facility] [place] [address] Discharge Disposition: Discharge to home or self care Social History Tobacco Use Types Packs/Day Years Used Date Smoking Tobacco: Never Assessed Sex and Gender Information Value Date Recorded Sex Assigned at Not on file Legal Sex Male 3:52 AM [employer]INE RO[employer] Gender Identity Not on file Sexual Orientation Not on file documented as of this encounter Last Filed Vital Signs Vital Sign Reading Time Taken Comments Blood Pressure 150/91 06/13/2019 11:02 PM CDT Pulse 81 06/13/2019 11:02 PM CDT Temperature 36.4 ??C (97.6 ??F) 06/13/2019 11:02 PM C DT Respiratory Rate - - Oxygen Saturation 97% 06/13/2019 11:02 PM CDT Inhaled Oxygen Concentration - - Weight 75 kg (165 lb 5.6 oz) 06/13/2019 11:02 PM CDT Height 172.7 cm (5' 8 ) 06/13/2019 11:02 PM CDT Body Mass Index 25.14 06/13/2019 11:02 PM CDT documented in this encounter Medications at Time of Discharge nebivolol (BYSTOLIC) 5 mg tablet take 1 tablet by oral route every day 0 0 12/15/2015 08/28/2024 documented as of this encounter Discharge Disposition Disposition Code Departure Means Destination Discharge to home or self care documented in this encounter Plan of Treatment Not on file documented as of this encounter Procedures Procedure Name Priority Date/Time Associated Diagnosis Comments CBC WITH AUTO DIFFERENTIAL Routine 06/15/2019 5:53 AM CDT BASIC METABOLIC PANEL Routine 06/15/2019 5:53 AM CDT URINALYSIS, COMPLETE W/REFLEX TO CULTURE Routine 06/14/2019 6:47 AM CDT DRUGS OF ABUSE SCREEN, URINE WITHOUT CONFIRMATION Routine 06/14/2019 6:47 AM CDT CBC WITH AUTO DIFFERENTIAL Routine 06/14/2019 5:48 AM CDT MAGNESIUM Routine 06/14/2019 5:48 AM CDT LIPASE Routine 06/14/2019 5:48 AM CDT BASIC METABOLIC PANEL Routine 06/14/2019 5:48 AM CDT ECG 12-LEAD 06/13/2019 3:54 PM CDT CBC WITH AUTO DIFFERENTIAL Routine 06/13/2019 3:02 PM CDT COMPREHENSIVE METABOLIC PANEL Routine 06/13/2019 3:02 PM CDT documented in this encounter Results * (ABNORMAL) Basic metabolic panel (06/15/2019 5:53 AM CDT) Sodium 136 135 - 145 mmol/L [facility] Potassium 3.1(L) 3.3 - 5.1 mmol/L [facility] Chloride 100 96 - 108 mmol/L [facility] Carbon Dioxide 27 22 - 32 mmol/L [facility] Anion Gap 9 7 - 16 [facility] Glucose 97 70 - 100 mg/dL [facility] BUN 11 8 - 25 mg/dL [facility] Creatinine 0.8 0.5 - 1.3 mg/dL [facility] Comment: NOTE: Estimated GFR (Cockroft-Gault) will NOT be calculated unless patient Height and Weight were entered. Also, Kidney Disease Stage (GFR) and Estimated GFR (Cockroft-Gault) will NOT be calculated if Creatinine result is <0.2. Kidney Disease Stage >90 mL/MIN [facility] Comment: NOTE; ??The GFR is an estimated value using the creatinine, sex, age, and race of the patient. THE Estimated Kidney Disease GFR is validated for AGES 18-70 YEARS STAGE ?mL/Min ?DESCRIPTION ??1 ?90 mL/min or more ?Normal or elevated GFR ??2 ? 60-89 mL/min ?Mildly decreased GFR ??3 ? 30-59 mL/min ?Moderately decreased GFR ??4 ? 15-29 mL/min ?Severely decreased GFR ??5 ? <15 mL/min ? Kidney failure or on dialysis Est GFR (Cockcroft-G) 104 ml/MIN [facility] Comment: Estimated GFR(Cockroft-Gault)is used to calculate patient medication dosage Calcium 8.7 8.6 - 10.3 mg/dL [facility] 06/15/2019 5:53 AM CDT 06/15/2019 6:54 AM CDT Narrative Resulting Agency Comment IN us Nick Stewart MD LAB BLOOD ORDERABLES Final Result [facility] [address] [place] [address], [facility] [phone] * (ABNORMAL) CBC with auto differential (06/15/2019 5:53 AM CDT) WBC 8.0 3.8 - 9.9 X10 3/ul [facility] RBC 3.55(L) 4.30 - 5.80 x10 6/ul [facility] Hemoglobin 9.2(L) 13.0 - 17.5 g/dL [facility] Hct 30.1(L) 38.9 - 50.3 % [facility] MCV 84.8 81.3 - 96.4 fl [facility] MCH 25.9(L) 27.1 - 33.3 pg [facility] MCHC 30.6(L) 32.3 - 35.7 g/dl [facility] RDW 21.5(H) 11.1 - 14.9 % [facility] Plt Count 160 150 - 400 x10 3/ul [facility] MPV 11.0 9.1 - 12.3 fl [facility] Neut % 70.2 % [facility] Immature Gran % 0.6 % [facility] Lymph % 9.3 % [facility] Donley % 18.0 % [facility] Eos % 1.5 % [facility] AUTO BASO % 0.4 % [facility] NEUTROPHIL ABS # 5.6 1.7 - 6.5 x10 3/ul [facility] Immature Gran # 0.1 0.0 - 0.1 x10 3/ul [facility] Absolute Lymphs (auto) 0.7(L) 0.8 - 3.3 x10 3/ul [facility] Absolute Monos (auto) 1.4(H) 0.2 - 0.8 x10 3/ul [facility] Absolute Eos (auto) 0.1 0.0 - 0.5 x10 3/ul [facility] BASOPHIL ABS # 0.0 0.0 - 0.1 x10 3/ul [facility] Nucleat RBC Rel Count 0.0 #/100WBC [facility] NRBC abs 0.00 0.00 - 0.01 x10 3/ul [facility] Absolute Neutrophils 5,600 200 - 8,000 /ul [facility] 06/15/2019 5:53 AM CDT 06/15/2019 6:54 AM CDT Narrative Resulting Agency Comment IN us Nick Stewart MD LAB BLOOD ORDERABLES Final Result [facility] [address] [phone] * Drugs of Abuse Screen, Urine without Confirmation (06/14/2019 6:47 AM CDT) Amphetamines NOT DETECTED [facility] Comment: This assay uses 500 ng/mL as a cutoff for a positive result. Barbiturates NOT DETECTED [facility] Comment: This assay uses 200 ng/mL as a cutoff for a positive result. Urine Fentanyl NOT DETECTED [facility] Comment: This assay uses 1 ng/mL as a cutoff for a positive result. Benzodiazepines NOT DETECTED [facility] Comment: This assay uses 100 ng/mL as a cutoff for a positive result. Cannabinoids NOT DETECTED [facility] Comment: This assay uses 50 ng/mL as a cutoff for a positive result. Cocaine NOT DETECTED [facility] Comment: This assay uses 150 ng/mL as a cutoff for a positive result. Opiates NOT DETECTED [facility] Comment: This assay uses 300 ng/mL as a cutoff for a positive result. Urine methadone NOT DETECTED [facility] Comment: This assay uses 300 ng/mL as a cutoff for a positive result. Urine phencyclidine plus NOT DETECTED [facility] Comment: This assay uses 25 ng/mL as a cutoff for a positive result. Oxycodone NOT DETECTED [facility] Comment: This assay uses 100 ng/mL as a cutoff for a positive result. Urine Creatinine/ЕЛЕНА 397.0 mg/dL [facility] Comment: If Creatinine is < 40 mg/dL, recollection is suggested. 06/14/2019 6:47 AM CDT 06/14/2019 7:04 AM CDT Narrative [facility] - 06/14/2019 7:34 AM CDT Collected By DBS Resulting Agency Comment IN us Radha NARAYAN LAB URINE ORDERABLES Fin al Result [facility] [address] [place] [address], [facility] [phone] * (ABNORMAL) URINALYSIS, COMPLETE W/REFLEX TO CULTURE (06/14/2019 6:47 AM CDT) Ur Collection Type CLEAN CATCH [facility] Ur Culture Indicated? C S NOT INDICATED [facility] Urine Color LUIS ANTONIO YELLOW [facility] Urine Clarity [facility] Urine Glucose (UA) NORMAL NORMAL mg/dL [facility] Urine Bilirubin NEGATIVE NEGATIVE mg/dl [facility] Urine Ketones 20 NEGATIVE mg/dL [facility] Ur Specific [place] 1.018 1.005 - 1.025 [facility] Urine Blood NEGATIVE NEGATIVE mg/dl [facility] Urine pH 5.0 5.0 - 8.0 [facility] Urine Protein 30(A) NEGATIVE mg/dL [facility] Urine Urobilinogen NORMAL NORMAL mg/dL [facility] Urine Nitrite NEGATIVE NEGATIVE [facility] Ur Leukocyte Esterase NEGATIVE NEGATIVE Solomon/ul [facility] Ur Microscopic Review Indicated or Ordered [facility] Urine RBC <1 0 - 2 /HPF [facility] Urine WBC 3 0 - 2 /HPF [facility] Urine Mucus Few /LPF [facility] Ur Squamous Epith Cells Rare /HPF [facility] Hyaline Casts 27 0 - 2 /LPF [facility] Granular Casts 2 /LPF [facility] 06/14/2019 6:47 AM CDT 06/14/2019 7:04 AM CDT Narrative [facility] - 06/14/2019 7:33 AM CDT Indication(s) for ordering ?? Increased freq/urgency DBS Clean catch Resulting Agency Comment IN Radha NARAYAN LAB URINE ORDERABLES Fin al Result Performing Organization Address [facility] Co de Phone Number [address] [phone] * Magnesium (06/14/2019 5:48 AM CDT) Magnesium 1.9 1.6 - 2.6 mg/dL [facility] Comment: Results reviewed Magnesium sulfate therapy: ??3.0-9.1 mg/dL 06/14/2019 5:48 AM CDT 06/14/2019 6:16 AM CDT Narrative Resulting Agency Comment IN us Nick Stewart MD LAB BLOOD ORDERABLES Final Result [address] [phone] * Lipase (06/14/2019 5:48 AM CDT) Lipase 49 13 - 60 U/L [facility] 06/14/2019 5:48 AM CDT 06/14/2019 6:16 AM CDT Narrative Resulting Agency Comment IN Nick Stewart MD LAB BLOOD ORDERABLES Final Result [facility] [address] [place] [address], [facility] [phone] * (ABNORMAL) Basic metabolic panel (06/14/2019 5:48 AM CDT) Sodium 137 135 - 145 mmol/L [facility] Potassium 4.0 3.3 - 5.1 mmol/L [facility] Chloride 94(L) 96 - 108 mmol/L [facility] Carbon Dioxide 28 22 - 32 mmol/L [facility] Anion Gap 15 7 - 16 [facility] Glucose 88 70 - 100 mg/dL [facility] BUN 21 8 - 25 mg/dL [facility] Creatinine 1.3 0.5 - 1.3 mg/dL [facility] Comment: NOTE: Estimated GFR (Cockroft-Gault) will NOT be calculated unless patient Height and Weight were entered. Also, Kidney Disease Stage (GFR) and Estimated GFR (Cockroft-Gault) will NOT be calculated if Creatinine result is <0.2. Kidney Disease Stage 61 mL/MIN [facility] Comment: NOTE; ??The GFR is an estimated value using the creatinine, sex, age, and race of the patient. THE Estimated Kidney Disease GFR is validated for AGES 18-70 YEARS STAGE ?mL/Min ?DESCRIPTION ??1 ?90 mL/min or more ?Normal or elevated GFR ??2 ? 60-89 mL/min ?Mildly decreased GFR ??3 ? 30-59 mL/min ?Moderately decreased GFR ??4 ? 15-29 mL/min ?Severely decreased GFR ??5 ? <15 mL/min ? Kidney failure or on dialysis Est GFR (Cockcroft-G) 64 ml/MIN [facility] Comment: Estimated GFR(Cockroft-Gault)is used to calculate patient medication dosage Calcium 9.1 8.6 - 10.3 mg/dL [facility] 06/14/2019 5:48 AM CDT 06/14/2019 6:16 AM CDT Narrative Resulting Agency Comment IN us Nick Stewart MD LAB BLOOD ORDERABLES Edite d Result - Final [facility] [address] [place] [address], [facility] [phone] * (ABNORMAL) CBC with auto differential (06/14/2019 5:48 AM CDT) WBC 7.9 3.8 - 9.9 X10 3/ul [facility] RBC 3.90(L) 4.30 - 5.80 x10 6/ul [facility] Hemoglobin 10.1(L) 13.0 - 17.5 g/dL [facility] Hct 31.9(L) 38.9 - 50.3 % [facility] MCV 81.8 81.3 - 96.4 fl [facility] MCH 25.9(L) 27.1 - 33.3 pg [facility] MCHC 31.7(L) 32.3 - 35.7 g/dl [facility] RDW 22.4(H) 11.1 - 14.9 % [facility] Plt Count 153 150 - 400 x10 3/ul [facility] MPV 10.5 9.1 - 12.3 fl [facility] Neut % 68.0 % [facility] Immature Gran % 0.9 % [facility] R[facility] Lymph % 10.5 % [facility] Donley % 18.8 % [facility] Eos % 1.3 % [facility] AUTO BASO % 0.5 % [facility] NEUTROPHIL ABS # 5.4 1.7 - 6.5 x10 3/ul [facility] Immature Gran # 0.1 0.0 - 0.1 x10 3/ul [facility] Absolute Lymphs (auto) 0.8 0.8 - 3.3 x10 3/ul [facility] Absolute Monos (auto) 1.5(H) 0.2 - 0.8 x10 3/ul [facility] Absolute Eos (auto) 0.1 0.0 - 0.5 x10 3/ul [facility] BASOPHIL ABS # 0.0 0.0 - 0.1 x10 3/ul [facility] Nucleat RBC Rel Count 0.0 #/100WBC [facility] NRBC abs 0.00 0.00 - 0.01 x10 3/ul [facility] Absolute Neutrophils 5,400 200 - 8,000 /ul [facility] 06/14/2019 5:48 AM CDT 06/14/2019 6:16 AM CDT Narrative Resulting Agency Comment IN us Nick Stewart MD LAB BLOOD ORDERABLES Final Result [facility] [address] [place] [address], [facility] [phone] * ECG 12 lead (06/13/2019 3:54 PM CDT) Ventricular Rate EKG/Min 106 BPM ER RADIOLOGY Atrial Rate 106 BPM ER RADIOLOGY TN-Interval (MSEC) 144 ms ER RADIOLOGY QRS-Interval (MSEC) 94 ms ER RADIOLOGY QT-Interval (MSEC) 390 ms ER RADIOLOGY QTc 518 ms ER RADIOLOGY P [place] 36 degrees ER RADIOLOGY R [place] 26 degrees ER RADIOLOGY T [place] 7 degrees ER RADIOLOGY Diagnosis Sinus tachycardia Possible Inferior infarct , age undetermined Abnormal ECG No previous ECGs available ER RADIOLOGY 06/13/2019 3:54 PM CDT 06/13/2019 8:33 PM CDT Narrative Resulting Agency Comment PREADT us Radha NARAYAN ECG ORDERABLES Final Re sult ER RADIOLOGY * (ABNORMAL) Comprehensive metabolic panel (06/13/2019 3:02 PM CDT) Sodium 139 135 - 145 mmol/L [facility] Potassium 3.2(L) 3.3 - 5.1 mmol/L [facility] Chloride 88(L) 96 - 108 mmol/L [facility] Carbon Dioxide 24 22 - 32 mmol/L [facility] Anion Gap 27(H) 7 - 16 [facility] Glucose 115(H) 70 - 100 mg/dL [facility] BUN 16 8 - 25 mg/dL [facility] Creatinine 2.4(H) 0.5 - 1.3 mg/dL [facility] Comment: NOTE: Estimated GFR (Cockroft-Gault) will NOT be calculated unless patient Height and Weight were entered. Also, Kidney Disease Stage (GFR) and Estimated GFR (Cockroft-Gault) will NOT be calculated if Creatinine result is <0.2. Kidney Disease Stage 30 mL/MIN [facility] Comment: NOTE; ??The GFR is an estimated value using the creatinine, sex, age, and race of the patient. THE Estimated Kidney Disease GFR is validated for AGES 18-70 YEARS STAGE ?mL/Min ?DESCRIPTION ??1 ?90 mL/min or more ?Normal or elevated GFR ??2 ? 60-89 mL/min ?Mildly decreased GFR ??3 ? 30-59 mL/min ?Moderately decreased GFR ??4 ? 15-29 mL/min ?Severely decreased GFR ??5 ? <15 mL/min ? Kidney failure or on dialysis Est GFR (Cockcroft-G) 35 ml/MIN [facility] Comment: Estimated GFR(Cockroft-Gault)is used to calculate patient medication dosage Calcium 9.6 8.6 - 10.3 mg/dL [facility] Total Protein 7.7 6.4 - 8.3 g/dL [facility] Albumin 4.5 3.5 - 5.0 g/dL [facility] Globulin 3.2 2.3 - 3.5 gm/dL [facility] Albumin/Globulin Ratio 1.4 1.1 - 1.8 [facility] Total Bilirubin 0.8 0.0 - 1.2 mg/dL [facility] AST 61(H) 0 - 40 U/L [facility] ALT 35 0 - 41 U/L [facility] Alkaline Phosphatase 82 40 - 129 U/L [facility] 06/13/2019 3:02 PM CDT 06/13/2019 3:06 PM CDT Narrative Resulting Agency Comment ER us Notinfile Unknown LAB BLOOD ORDERABLES Final Res ult [facility] [address] [place] [address], [facility] [phone] * (ABNORMAL) CBC with auto differential (06/13/2019 3:02 PM CDT) WBC 10.5(H) 3.8 - 9.9 X10 3/ul [facility] RBC 4.33 4.30 - 5.80 x10 6/ul [facility] Hemoglobin 11.2(L) 13.0 - 17.5 g/dL [facility] Hct 34.9(L) 38.9 - 50.3 % [facility] MCV 80.6(L) 81.3 - 96.4 fl [facility] MCH 25.9(L) 27.1 - 33.3 pg [facility] MCHC 32.1(L) 32.3 - 35.7 g/dl [facility] RDW 23.0(H) 11.1 - 14.9 % [facility] Plt Count 164 150 - 400 x10 3/ul [facility] MPV 9.8 9.1 - 12.3 fl [facility] Neut % 64.5 % [facility] Immature Gran % 1.0 % [facility] Lymph % 14.0 % [facility] Donley % 19.6 % [facility] Eos % 0.3 % [facility] AUTO BASO % 0.6 % [facility] NEUTROPHIL ABS # 6.8(H) 1.7 - 6.5 x10 3/ul [facility] Immature Gran # 0.1 0.0 - 0.1 x10 3/ul [facility] Absolute Lymphs (auto) 1.5 0.8 - 3.3 x10 3/ul [facility] Absolute Monos (auto) 2.1(H) 0.2 - 0.8 x10 3/ul [facility] Absolute Eos (auto) 0.0 0.0 - 0.5 x10 3/ul [facility] BASOPHIL ABS # 0.1 0.0 - 0.1 x10 3/ul [facility] Nucleat RBC Rel Count 0.0 #/100WBC [facility] NRBC abs 0.00 0.00 - 0.01 x10 3/ul [facility] Absolute Neutrophils 6,800 200 - 8,000 /ul [facility] 06/13/2019 3:02 PM CDT 06/13/2019 3:06 PM CDT Narrative Resulting Agency Comment ER us Notinfile Unknown LAB BLOOD ORDERABLES Final Res ult [address] [address], [facility] [phone] documented in this encounter Visit Diagnoses Not on filedocumented in this encounter Care Teams Swimming Pool Attendant Relationship Specialty Start Date End Date Fernie Fulton MD [address] [place] [address] PCP - General 06/13/19 Fernie Fulton MD [address] [place] [address] Internal Medicine 06/13/19 documented as of this encounter
--- OUTSIDE RECORDS SUMMARY | 2024-09-03 20:22 | XMS_ITS | Encounter Summary ---
Author Organization [facility] Address [address] [place] [address] Care Team Providers Care Human Resources Executive Name Role Phone Fernie Fulton MD Primary Care Provider [phone] Fernie Fulton MD Unavailable Encounter Details Date Type Department Care Team (Late st Contact Info) Description 11/15/2020 Orders Only [facility] Cardiology [address] [place] [address] Dejan Anderson MD [address] [place] [address] Social History Tobacco Use Types Packs/Day Years Used Date Smoking Tobacco: Never Assessed Alcohol Use Standard Drinks/Week Comments Yes 0 (1 standard drink = 0.6 oz pur e alcohol) Sex and Gender Information Value Date Recorded Sex Assigned at Not on file 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 Gender Identity Not on file Sexual Orientation Not on file documented as of this encounter Plan of Treatment Not on file documented as of this encounter Procedures Procedure Name Priority Date/Time Associated Diagnosis Comments CARDIOLOGY DOCUMENT SCAN Routine 11/15/2020 documented in this encounter Results * SCAN - CARDIOLOGY (11/15/2020) Anatomical Region Laterality Modality Other us Dejan Anderson MD CV CARDIAC SERVICES PROC EDURES Final Result documented in this encounter Visit Diagnoses Not on filedocumented in this encounter Care Teams Human Resources Executive Relationship Specialty Start Date End Date Fernie Fulton MD [address] [place] [address] PCP - General 06/13/19 Fernie Fulton MD [address] [place] [address] Internal Medicine 06/13/19 documented as of this encounter
--- OUTSIDE RECORDS SUMMARY | 2024-09-03 20:22 | XMS_ITS | Encounter Summary ---
Author Organization [facility] Address [address] [place] [address] Care Team Providers Care Ophthalmic Medical Technologist Name Role Phone Fernie Fulton MD Primary Care Provider [phone] Reason for Visit * (Routine) - Closed Specialty Diagnoses / Procedures Referred By Contac t Referred To Contact Diagnoses Syncope and collapse Procedures MCT Mobile Cardiac Telemetry Event Monitor Jason Salazar MD Phone: tel: fax: [facility] Referral ID Status Reason Start Date Expiration Date Visits Re quested Visits Authorized [id number] Closed 10/16/2018 04/26/2020 1 1 Encounter Details Date Type Department Care Team (Latest Contact Info) Description 10/18/2018 10:30 AM NET DEVELOPER WITH WCF Ancillary Procedure [facility] Cardiology [address] [place] [address] Syncope and collapse Social History Tobacco Use Types Packs/Day Years Used Date Smoking Tobacco: Never Assessed Alcohol Use Standard Drinks/Week Comments Yes 0 (1 standard drink = 0.6 oz pur e alcohol) Sex and Gender Information Value Date Recorded Sex Assigned at Not on file Legal Sex Male 3:52 AM NET DEVELOPER WITH WCF Gender Identity Not on file Sexual Orientation Not on file documented as of this encounter Plan of Treatment Not on file documented as of this encounter Procedures Procedure Name Priority Date/Time Associated Diagnosis Comments MCT - MOBILE CARDIAC TELEMETRY EVENT MONITOR Routine 10/18/2018 10:34 AM NET DEVELOPER WITH WCF Syncope and collapse documented in this encounter Results * MCT Mobile Cardiac Telemetry Event Monitor (10/18/2018 10:34 AM NET DEVELOPER WITH WCF) Anatomical Region Laterality Modality Other Narrative 11/06/2018 4:38 PM NET DEVELOPER WITH WCF AMBULATORY BRAKE SHOE 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 Primary Physician: @PCP@ Requesting Physician: @REQUEST@ Date of interpretation: 11/06/18 Type of monitor : ??14 day event monitor Date of the study/Enrollment period: ??10/18/2018-10/31/2018 Indication: ??Syncope and collapse Quality of the study: ??Adequate Interpretation: ??Patient was enrolled for 14 days with 2 transmissions posted. ??Underlying rhythm is sinus rhythm with heart rate 80 beats per minute. ??No significant arrhythmias or heart blocks were noted. ??No symptoms were reported. Conclusions: 1. Underlying rhythm is sinus rhythm, average heart rate 80 beats per minute. 2. No significant arrhythmias were noted. 3. No symptoms reported. Voice recognition software was used to complete this document. Elia Cohen MD, [facility] Procedure Note Elia Cohen MD - 11/06/2018 AMBULATORY BRAKE SHOE REBUILDER REPORT Patient Name: Jones Painting Date of : 1965 Primary Physician: @PCP@ Requesting Physician: @REQUEST@ Date of interpretation: 11/06/18 Type of monitor : 14 day event monitor Date of the study/Enrollment period: 10/18/2018-10/31/2018 Indication: Syncope and collapse Quality of the study: Adequate Interpretation: Patient was enrolled for 14 days with 2 transmissionsposted. Underlying rhythm is sinus rhythm with heart rate 80 beats perminute. No significant arrhythmias or heart blocks were noted. Nosymptoms were reported. Conclusions: 1. Underlying rhythm is sinus rhythm, average heart rate 80 beats perminute. 2. No significant arrhythmias were noted. 3. No symptoms reported. Voice recognition software was used to complete this document. Elia Cohen MD, [facility] Jason Salazar MD [facility] CARDIAC SERVICES PROC EDURES Final Result documented in this encounter Visit Diagnoses Diagnosis Syncope and collapse documented in this encounter Care Teams Ophthalmic Medical Technologist Relationship Specialty Start Date End Date Fernie Fulton MD [address] [place] [address] PCP - General Internal Medicine 10/18/18 06/12/19 documented as of this encounter
--- OUTSIDE RECORDS SUMMARY | 2024-09-04 04:10 | XMS_ITS | Encounter Summary ---
Author Organization [facility] Address [address] [place] [address]. [place], [place] [id number] [place] [address] Care Team Providers Care Openstack Cloud Consulting Architect Name Role Phone Fernie Fulton MD Primary Care Provider [phone] Encounter Details Date Type Department Care Team (Latest Contact Info) Description 08/30/2020 7:42 AM LAUNDRY PRICING CLERK - 08/30/2020 11:16 AM LAUNDRY PRICING CLERK Hospital Encounter [facility] Surgery [address] [place] [address] Boyd Carpio MD [address] [address] Discharge Disposition: Home or Self Care (Routine Discharge) Social History Tobacco Use Types Packs/Day Years Used Date Smoking Tobacco: Former Smokeless Tobacco: Never Alcohol Use Standard Drinks/Week Comments Not Currently 0 (1 standard drink = 0.6 oz pur e alcohol) Sex and Gender Information Value Date Recorded Sex Assigned at Not on file Legal Sex Male 2:51 PM LAUNDRY PRICING CLERK Gender Identity Not on file Sexual Orientation Not on file COVID-19 Exposure Response Date Recorded In the last month, have you been in contact with someone who was confirmed or suspected to have Coronavirus / COVID-19? No / Unsure 08/30/2020 7:43 AM LAUNDRY PRICING CLERK documented as of this encounter Last Filed Vital Signs Vital Sign Reading Time Taken Comments Blood Pressure 165/99 08/30/2020 10:46 AM LAUNDRY PRICING CLERK did not take his blood pressure medication, and will resume once he is discharged. Pulse 73 08/30/2020 10:46 AM LAUNDRY PRICING CLERK Temperature 36.7 ??C (98.1 ??F) 08/30/2020 1 0:46 AM LAUNDRY PRICING CLERK Respiratory Rate 20 08/30/2020 10:4 6 AM LAUNDRY PRICING CLERK Oxygen Saturation 96% 08/30/2020 10: 46 AM LAUNDRY PRICING CLERK Inhaled Oxygen Concentration - - Weight 86.2 kg (190 lb) 08/30/2020 9:05 AM LAUNDRY PRICING CLERK Height 172.7 cm (5' 8 ) 08/30/2020 9:05 AM LAUNDRY PRICING CLERK Body Mass Index 28.89 08/30/2020 9:05 AM LAUNDRY PRICING CLERK documented in this encounter Discharge Instructions * Discharge Instructions* Letty Pan RN - 08/30/2020 10:50 AM LAUNDRY PRICING CLERK [facility] POST-OP INSTRUCTIONS FOLLOWING [...] Ask you doctor. You must have a street flusher driver for the day of surgery and your 1st post op exam. 11. ALWAYS WERE SUNGLASSES WHEN YOU GO OUTSIDE. These are found in your surgery kit. Dr. Carpio OFFICE [phone] AFTER HOURS EMERGENCY [phone] DRY PRICING CLERK documented in this encounter Medications at Time [...] were discussed with the patient and/or family/personal public utilities sales representative. Questions were answered and the patient/family/personal public utilities sales representative verbalized understanding and desires to proceed. BOYD CARPIO MD DRY PRICING CLERK documented in this encounter Nursing Notes * Ashley Valle RN - 08/30/2020 7:57 AM CST This nurse explained to pt that his COVID test results are not back yet so he will have to moved tothe last slot. Pt stated he understood DRY PRICING CLERK documented in this encounter OR Notes * [...] room in satisfactory condition. BOYD CARPIO MD DRY PRICING CLERK * Op Note - Boyd Carpio MD [...] room in satisfactory condition. BOYD CARPIO MD DRY PRICING CLERK documented in this encounter Plan of Treatment Not on file documented as of this encounter Procedures Procedure Name Priority Date/Time Associated Diagnosis Comments CATARACT REMOVAL WITH IOL IMPLANT 08/30/2020 10:19 AM LAUNDRY PRICING CLERK H25.11 Special Needs 0730 documented in this [...] operative eye, Pre-Op Given 08/30/2020 9:45 AM LAUNDRY PRICING CLERK 1 drop Given 08/30/2020 9:32 AM LAUNDRY PRICING CLERK 1 drop Given 08/30/2020 9:25 AM LAUNDRY PRICING CLERK 1 drop BUpivacaine (PF) (MARCAINE) 0.5 % injection 0.1 mL 0.1 mL, Right Eye, Every 5 min, 3 doses, First dose on 08/30/20 at 0945, Last dose on Sun08/30/20 at 0955, Instill to operative eye, Pre-Op Given 08/30/2020 9:44 AM LAUNDRY PRICING CLERK 0.1 mLs Given 08/30/2020 9:30 AM LAUNDRY PRICING CLERK 10 mLs Given 08/30/2020 9:24 AM LAUNDRY PRICING CLERK 0.1 mLs flurbiprofen (OCUFEN) 0.03 % ophthalmic solution 1 drop 1 drop, Right Eye, Every 5 min, 3 doses, First dose on 08/30/20 at 0945, Last dose on Sun08/30/20 at 0955, Instill to operative eye, Pre-Op Given 08/30/2020 9:45 AM LAUNDRY PRICING CLERK 1 drop Given 08/30/2020 9:31 AM LAUNDRY PRICING CLERK 1 drop Given 08/30/2020 9:25 AM LAUNDRY PRICING CLERK 1 drop methazolAMIDE (NEPTAZANE) tablet 50 mg 50 mg, Oral, Once, 1 dose, On Sun08/30/20 at 1045, If NOT allergic to Sulfa, Post-Op Given 08/30/2020 10:58 AM LAUNDRY PRICING CLERK 50 mg phenylephrine (MYDFRIN) 2.5 % ophthalmic solution 1 drop 1 drop, Right Eye, Every 5 min, 3 doses, First dose on Sun08/30/20 at 0945, Last dose on Sun08/30/20 at 0955, Instill to operative eye, Pre-Op Given 08/30/2020 9:44 AM LAUNDRY PRICING CLERK 1 drop Given 08/30/2020 9:31 AM LAUNDRY PRICING CLERK 1 drop Given 08/30/2020 9:25 AM LAUNDRY PRICING CLERK 1 drop tropicamide (MYDRIACYL) 1 % ophthalmic solution 1 drop 1 drop, Right Eye, Every 5 min, 2 doses, First dose on Sun08/30/20 at 0945, Last dose on Sun08/30/20 at 0950, Instill to operative eye, Pre-Op Given 08/30/2020 9:31 AM LAUNDRY PRICING CLERK 1 drop Given 08/30/2020 9:24 AM LAUNDRY PRICING CLERK 1 drop documented in this encounter Active and Recently Administered Medications Times are shown in LAUNDRY PRICING CLERK. Scheduled Medication Order 08/28/2020 08/29/2020 08/30/2020 besifloxacin [...] (Given - Provid er: Boyd Carpio MD) yoxilpxk-lkakdqbdqf-khmhfanip (NEOSPORIN) ophthalmic ointment (CANCELED) As needed, Starting [...] Rule Out 08/28/2020 08/28/2020 08/30/2020 12:50 PM LAUNDRY PRICING CLERK documented as of this encounter Care Teams Openstack Cloud Consulting Architect Relationship Specialty Start Date End Date Fernie Fulton MD [address] [place] [id number] PCP - General INTERNAL MEDICINE 08/28/20 documented as of this encounter
--- OUTSIDE RECORDS SUMMARY | 2024-09-04 04:10 | XMS_ITS | Encounter Summary ---
Author Organization [facility] Address [address] [place] [address]. [place], [place] [address] [place] [address] Care Team Providers Care Whey Department Operator Name Role Phone Fernie Fulton MD Primary Care Provider [phone] Encounter Details Date Type Department Care Team (Latest Contact Info) Description 08/28/2020 10:16 AM REFERRAL MANAGEMENT LIAISON - 08/28/2020 11:59 PM REFERRAL MANAGEMENT LIAISON Hospital Encounter [facility] [address] [place] [address] Alcon Desir MD [address] [facility] [address] [address] Discharge Disposition: Home or Self Care (Routine Discharge) Social History Tobacco Use Types Packs/Day Years Used Date Smoking Tobacco: Former Smokeless Tobacco: Never Alcohol Use Standard Drinks/Week Comments Not Currently 0 (1 standard drink = 0.6 oz pur e alcohol) Sex and Gender Information Value Date Recorded Sex Assigned at Not on file Legal Sex Male 2:51 PM REFERRAL MANAGEMENT LIAISON Gender Identity Not on file Sexual Orientation [...] (COVID 19) PCR Routine 08/28/2020 10:19 AM REFERRAL MANAGEMENT LIAISON documented in this encounter Results * CORONAVIRUS (COVID 19) PCR (08/28/2020 10:19 AM REFERRAL MANAGEMENT LIAISON) CORONAVIRUS SARS COV 2 PCR (RESP) NEGATIVE NEGATIVE 08/30/2020 12:50 PM REFERRAL MANAGEMENT LIAISON [facility] Comment: NEGATIVE RESULTS DO NOT PRECLUDE SARS-CoV-2 INFECTION AND SHOULD NOT BE USED THE SOLE BASIS FOR PATIENT MANAGEMENT DECISIONS. NEGATIVE RESULTS MUST BE COMBINED WITH CLINICAL OBSERVATIONS, PATIENT HISTORY, AND EPIDEMIOLOGICAL INFORMATION. THE SARS-CoV-2 TEST HAS BEEN AUTHORIZED BY THE FDA UNDER AN EUA FOR USE BY AUTHORIZED LABORATORIES. FIRST TEST UNKNOWN 08/28/2020 1:35 PM REFERRAL MANAGEMENT LIAISON [facility] EMPLOYED IN HEALTHCARE UNKNOWN 08/28/2020 1:35 PM REFERRAL MANAGEMENT LIAISON [facility] SYMPTOMATIC DEFINED BY CDC UNKNOWN 08/28/2020 1:35 PM REFERRAL MANAGEMENT LIAISON [facility] HOSPITALIZATION STATUS UNKNOWN 08/28/2020 1:35 PM REFERRAL MANAGEMENT LIAISON [facility] PATIENT IN ICU UNKNOWN 08/28/2020 1:35 PM REFERRAL MANAGEMENT LIAISON [facility] RESIDENT OF [facility] UNKNOWN 08/28/2020 1:35 PM REFERRAL MANAGEMENT LIAISON [facility] 08/28/2020 10:1 9 AM REFERRAL MANAGEMENT LIAISON us Alcon Desir MD MICROBIOLOGY - GENERAL ORDERA BLES Final Result [facility] [address] [place] [address], [place] [phone] [facility] [address] [place] [address], [place] [phone] [id number] documented in this encounter Visit Diagnoses Diagnosis Preop testing Preoperative examination, unspecified documented in this encounter Additional Health Concerns Infection Onset Date Last Indicated Resolved Time COVID-19 Rule Out 08/28/2020 08/28/2020 08/30/2020 12:50 PM REFERRAL MANAGEMENT LIAISON documented as of this encounter Care Teams Whey Department Operator Relationship Specialty Start Date End Date Kopjas, Fernie, MD [address] [place] [address] PCP - General INTERNAL MEDICINE 08/28/20 documented as of this encounter
--- OUTSIDE RECORDS SUMMARY | 2024-09-04 04:10 | XMS_ITS | Encounter Summary ---
Author Organization [facility] Address [address] [place] [address]. [place], [place] [address] [place] [address] Care Team Providers Care Fermenting Cellar Dropper Name Role Phone Fernie Fulton MD Primary Care Provider [phone] Encounter Details Date Type Department Care Team (Latest Contact Info) Description 08/30/2020 Travel Social History Tobacco Use Types Packs/Day Years Used Date Smoking Tobacco: Former Smokeless Tobacco: Never Alcohol Use Standard Drinks/Week Comments Not Currently 0 (1 standard drink = 0.6 oz pur e alcohol) Sex and Gender Information Value Date Recorded Sex Assigned at Not on file Legal Sex Male 2:51 PM FIRE CHIEF Gender Identity Not on file Sexual Orientation Not on file COVID-19 Exposure Response Date Recorded In the last month, have you been in contact with someone who was confirmed or suspected to have Coronavirus / COVID-19? No / Unsure 08/30/2020 7:43 AM FIRE CHIEF documented as of this encounter Plan of Treatment Not on file documented as of this encounter Visit Diagnoses Not on filedocumented in this encounter Additional Health Concerns Infection Onset Date Last Indicated Resolved Time COVID-19 Rule Out 08/28/2020 08/28/2020 08/30/2020 12:50 PM FIRE CHIEF documented as of this encounter Care Teams Fermenting Cellar Dropper Relationship Specialty Start Date End Date Fernie Fulton MD [address] [place] [phone] PCP - General INTERNAL MEDICINE 08/28/20 documented as of this encounter
--- OUTSIDE RECORDS SUMMARY | 2024-09-04 04:10 | XMS_ITS | Clinical Summary ---
Author Organization [facility] Address [facility] access hospital[facility]. [place], [place] [address] [place] [address] Care Team Providers Care Fax Machine Operator Name Role Phone Fernie Fulton MD Primary Care Provider [phone] Allergies No known active allergies Medications nebivolol [...] on file Legal Sex Male 2:51 PM FRUIT THINNER MACHINE OPERATOR Gender Identity Not on file Sexual Orientation Not on file Last Filed Vital Signs Vital Sign Reading Time Taken Comments Blood Pressure 165/99 08/30/2020 10:46 AM FRUIT THINNER MACHINE OPERATOR did not take his blood pressure medication, and will resume once he is discharged. Pulse 73 08/30/2020 10:46 AM FRUIT THINNER MACHINE OPERATOR Temperature 36.7 ??C (98.1 ??F) 08/30/2020 1 0:46 AM FRUIT THINNER MACHINE OPERATOR Respiratory Rate 20 08/30/2020 10:4 6 AM FRUIT THINNER MACHINE OPERATOR Oxygen Saturation 96% 08/30/2020 10: 46 AM FRUIT THINNER MACHINE OPERATOR Inhaled Oxygen Concentration - - Weight 86.2 kg (190 lb) 08/30/2020 9:05 AM FRUIT THINNER MACHINE OPERATOR Height 172.7 cm (5' 8 ) 08/30/2020 9:05 AM FRUIT THINNER MACHINE OPERATOR Body Mass Index 28.89 08/30/2020 9:05 AM FRUIT THINNER MACHINE OPERATOR Plan of Treatment Health Maintenance Due Date [...] this topic Medical Devices Implanted Type Area Slitter Scorer Cut Off Operator Device Identifier Shelf Expiration Date Model / Serial / Lot Iol [employer] - [id number] Implanted:Qty: 1 on 08/30/2020 by Alcon Desir MD at [facility] [employer] [id number] 01/20/2021 [id number] / [id number] / Insurance [facility] Care Teams Fax Machine Operator Relationship Specialty Start Date End Date Fernie Fulton MD [address] [place] [address] PCP - General INTERNAL MEDICINE 08/28/20
--- OUTSIDE RECORDS SUMMARY | 2024-09-04 04:10 | XMS_ITS | Clinical Summary ---
Author Organization [facility] Address [address] [place] [address] Care Team Providers Care Staff Mechanical Engineer Name Role Phone Fernie Fulton MD Primary Care Provider [phone] Fernie Fulton MD Unavailable [phone] Allergies Active Allergy Reactions Criticality Noted Date [...] hypertension 12/15/2015 Overview (12/07/2016): HTN (hypertension), benign [place] IV diagnosis 12/15/2015 Overview (12/07/2016): Psychosocial stressors Dyslipidemia 12/15/2015 Overview (12/09/2016): Mixed dyslipidemia Abnormal echocardiography 12/15/2015 Overview (12/09/2016): Abnormal stress echocardiogram Encounters Date Type Department Care Team Description 4 10:57 AM COMMUNICATIONS CLERK Anesthesia Event [facility] [address] [place] [phone] Dean Negrete MD 4 10:45 AM COMMUNICATIONS CLERK - 4 11:15 AM [facility] Surgery [facility] [address] [place] [phone] Cristo Funes MD COLON BIOPSY 4 10:07 AM COMMUNICATIONS CLERK Anesthesia Event [facility] [address] [place] [address] [phone] Terrell Jung DO 4 10:00 AM COMMUNICATIONS CLERK - 4 10:30 AM [facility] Surgery [facility] [address] [place] [phone] Cristo Funes MD ESOPHAGOGASTRODUODENOSCOPY BIOPSY 4 4:30 PM COMMUNICATIONS CLERK - 4 1:31 PM COMMUNICATIONS CLERK Hospital Encounter [address] [place] [address] Ping Lopez DO Dehaan, Kevin Patrick, MD Khan, Fatima A., MD Smelser, Katelyn P., MD Acute GI bleeding (Primary Dx); Colitis Discharge Disposition: Discharge to home or self care 4 Orders Only [facility] Hospitalists [facility] [place] [phone] Madie Duran MD from Last [...] drink = 0.6 oz pur e alcohol) [facility] Utilities Answer Date Recorded In the past 12 months has [facility] [employer], gas, oil, or water [employer] threatened to shut off services in your home? No 09/01/2024 Social Connection and Isolation Panel [NHANES] A nswer Date Recorded In a typical week, how many times do you talk on the phone with family, friends, or neighbors? Three times a week 09/01/20 How often do you get togethe r with friends or relatives? Twice a week 09/01/2024 Attends [employer] Not on file 09/01 Active Member [...] any time in the past [address] [facility], were you homeless or living in a alf (including now)? No 09/01/2024 Personal Safety Answer Date Recorded Have you ever been in or are you currently in a harmful physical or emotional relationship or is someone making you feel afraid or unsafe? Denies 08/28/2024 Sex and Gender Information Value Date Recorded Sex Assigned at Not on file Legal Sex Male 3:52 AM COMMUNICATIONS CLERK Gender Identity Not on file Sexual Orientation Not on file Obstetrics History Last Filed Vital Signs Vital Sign Reading Time Taken Comments Blood Pressure 112/64 09/02/2024 12:44 PM COMMUNICATIONS CLERK Pulse 105 09/02/2024 12:44 PM COMMUNICATIONS CLERK Temperature 36.9 ??C (98.5 ??F) 09/02/2024 1 2:44 PM COMMUNICATIONS CLERK Respiratory Rate 18 09/02/2024 12:4 4 PM COMMUNICATIONS CLERK Oxygen Saturation 98% 09/02/2024 12: 44 PM COMMUNICATIONS CLERK Inhaled Oxygen Concentration - - Weight 88.4 kg (194 lb 14.2 oz) 08/28/2024 4:30 PM COMMUNICATIONS CLERK Height 172.7 cm (5' 8 ) 08/28/2024 4:30 PM COMMUNICATIONS CLERK Body Mass Index 29.63 08/28/2024 4:30 PM COMMUNICATIONS CLERK Plan of Treatment Health Maintenance Due Date [...] Diagnosis Comments EGFR Routine 09/02/2024 5:43 AM COMMUNICATIONS CLERK DIFFERENTIAL AUTO Routine 09/02/2024 5:43 AM COMMUNICATIONS CLERK MAGNESIUM Routine 09/02/2024 5:43 AM COMMUNICATIONS CLERK BASIC METABOLIC PANEL Routine 09/02/2024 5:43 AM COMMUNICATIONS CLERK CBC WITH AUTO DIFFERENTIAL Routine 09/02 5:43 AM COMMUNICATIONS CLERK SURGICAL PATHOLOGY Routine 09/01/2024 11:14 AM COMMUNICATIONS CLERK Colitis COLON BIOPSY 09/01/2024 10:57 AM COMMUNICATIONS CLERK Colitis COLONOSCOPY 09/01/2024 10:52 AM COMMUNICATIONS CLERK EGFR Routine 09/01/2024 5:45 AM COMMUNICATIONS CLERK BASIC METABOLIC PANEL Routine 09/01/2024 5:[address] ABDOMEN PELVIS W CONTRAST IP Routine 12:40 PM COMMUNICATIONS CLERK DIFFERENTIAL AUTO Routine 08/31/2024 11:59 AM COMMUNICATIONS CLERK CBC WITH AUTO DIFFERENTIAL Routine 08/31 11:59 AM COMMUNICATIONS CLERK STOOL CULTURE Routine 08/31/2024 11:59 AM COMMUNICATIONS CLERK ADD ON LAB TEST Add-On 08/31/2024 11:14 AM COMMUNICATIONS CLERK CRP (ACUTE PHASE) Routine 08/31/2024 6:01 AM COMMUNICATIONS CLERK EGFR Routine 08/31/2024 6:01 AM COMMUNICATIONS CLERK DIFFERENTIAL AUTO Routine 08/31/2024 6:01 AM COMMUNICATIONS CLERK CBC WITH AUTO DIFFERENTIAL Routine 08/31 6:01 AM COMMUNICATIONS CLERK MAGNESIUM Routine 08/31/2024 6:01 AM COMMUNICATIONS CLERK BASIC METABOLIC PANEL Routine 08/31/2024 6:01 AM COMMUNICATIONS CLERK CALCIUM, IONIZED Routine 08/30/2024 11:56 AM COMMUNICATIONS CLERK US RUQ IP Routine 08/30/2024 8:29 AM COMMUNICATIONS CLERK EGFR Routine 08/30/2024 5:23 AM COMMUNICATIONS CLERK DIFFERENTIAL AUTO Routine 08/30/2024 5:23 AM COMMUNICATIONS CLERK BASIC METABOLIC PANEL Routine 08/30/2024 5:23 AM COMMUNICATIONS CLERK CBC WITH AUTO DIFFERENTIAL Routine 08/30 5:23 AM COMMUNICATIONS CLERK C. DIFFICILE TESTING Routine 08/29/2024 11:07 PM COMMUNICATIONS CLERK HEMOGLOBIN AND HEMATOCRIT Timed 2023 1:56 PM COMMUNICATIONS CLERK SURGICAL PATHOLOGY Routine 08/29/2024 10:14 AM COMMUNICATIONS CLERK Acute GI bleeding ESOPHAGOGASTRODUODENOSCOPY BIOPSY 08/29/2024 10:04 AM COMMUNICATIONS CLERK Acute GI bleeding EGD 08/29/2024 9:54 AM COMMUNICATIONS CLERK MANUAL DIFFERENTIAL Routine 08/29/2024 6:29 AM COMMUNICATIONS CLERK EGFR Routine 08/29/2024 6:29 AM COMMUNICATIONS CLERK DIFFERENTIAL AUTO Routine 08/29/2024 6:29 AM COMMUNICATIONS CLERK MAGNESIUM Routine 08/29/2024 6:29 AM COMMUNICATIONS CLERK CBC WITH AUTO DIFFERENTIAL Routine 08/29 6:29 AM COMMUNICATIONS CLERK BASIC METABOLIC PANEL Routine 08/29/2024 6:29 AM COMMUNICATIONS CLERK TRANSFUSE RED BLOOD CELLS Timed 2023 3:22 AM COMMUNICATIONS CLERK PREPARE RBC STAT 08/29/2024 2:41 AM COMMUNICATIONS CLERK HEMOGLOBIN AND HEMATOCRIT Timed 2023 12:51 AM COMMUNICATIONS CLERK B CHECK SAMPLE STAT 08/28/2024 7:16 PM COMMUNICATIONS CLERK HEMOGLOBIN AND HEMATOCRIT STAT 2023 7:16 PM COMMUNICATIONS CLERK TYPE AND SCREEN STAT 08/28/2024 7:10 PM COMMUNICATIONS CLERK from Last 3 Months Results * eGFR (09/02/2024 5:43 AM COMMUNICATIONS CLERK) eGFR 72 >=60 mL/min/1. 73 m2 Comment: [...] last reviewed 2021. Blood 09/02/2024 5:43 AM COMMUNICATIONS CLERK 09/02/2024 6:11 AM COMMUNICATIONS CLERK us Cristo Funes MD LAB BLOOD ORDERABLE S Final Result [facility] [address] Department [place] [address] * (ABNORMAL) Differential, auto (09/02/2024 5:43 AM COMMUNICATIONS CLERK) Monocyte abs 1.4(H) 0.2 - 0.8 K/cumm Eosinophil abs 0.1 0.0 - 0.5 K/cumm [facility] Neutrophil pct 56.0 % [facility] [...] revised on 2017. Blood 09/02/2024 5:43 AM COMMUNICATIONS CLERK 09/02/2024 6:11 AM COMMUNICATIONS CLERK us Cristo Funes MD LAB BLOOD ORDERABLE S Final Result [facility] [address] Department [place] [address] * (ABNORMAL) CBC with auto differential (09/02/2024 5:43 AM COMMUNICATIONS CLERK) WBC 8.5 3.8 - 9.9 K/cumm Hgb [...] [facility] Blood 09/02/2024 5:43 AM COMMUNICATIONS CLERK 09/02/2024 6:11 AM COMMUNICATIONS CLERK Cristo Funes MD LAB BLOOD ORDERABLE S Final Result Performing Organization Address City/[facility]/ZIP Co de Phone Number [facility] [address] [employer] [place] [address] * Magnesium (09/02/2024 5:43 AM COMMUNICATIONS CLERK) [facility] Magnesium 1.6 1.4 - 2.5 mg/dL Blood 09/02/2024 5:43 AM COMMUNICATIONS CLERK 09/02/2024 6:11 AM COMMUNICATIONS CLERK Cristo Funes MD LAB BLOOD ORDERABLE S Final Result Performing Organization Address [facility] de Phone Number [facility] [address] [place] [address] * (ABNORMAL) Basic metabolic panel (09/02/2024 5:43 AM COMMUNICATIONS CLERK) [facility] Sodium 139 135 - 145 mmol/L [...] Calcium 7.8(L) 8.5 - 10.3 mg/dL [facility] Blood 09/02/2024 5:43 AM COMMUNICATIONS CLERK 09/02/2024 6:11 AM COMMUNICATIONS CLERK us Cristo Funes MD LAB BLOOD ORDERABLE S Final Result [facility] [address] Department [place] [address] * Surgical pathology (09/01/2024 11:14 AM COMMUNICATIONS CLERK) Tissue (Colon, Biopsy) 09/01/2024 11:14 AM COMMUNICATIONS CLERK Comment:For colitis Tissue (Colon, Biopsy) 09/01/2024 11:15 AM COMMUNICATIONS CLERK Comment:For colitis Narrative PATHOLOGY [facility] - 09/02/2024 8:16 AM COMMUNICATIONS CLERK [address] ??[address] Tele: ?? Dara Paz MD - Crane Helper Note to Patients: This report may contain [...] REPORT Patient Name: ??JONES SANABRIA Address: ??[address] [place], [place] ??[address] Gender: ??M : ??1965 (Age: 59) Service: ??Cardiology Location: ??[id number], ?? Hospital #: ??[id number] Patient Type: ??[facility] Accession #: ? [id number] Taken: ? 09/01/2024 Received ? 09/01/2024 Reported: [...] architecture is maintained. Clerical Data Follows A; [id number] B; [id number] REPORT IMAGES AND/OR SCANNED DOCUMENTS ONLY VIEWABLE IN PDF FORMAT The immunohistochemical test(s) cited in this report, if any, was developed and its performance characteristics determined by [facility] Pathology Department. ??It has not been cleared or approved by the U.S. Food and Drug Administration. ??The FDA has determined that such clearance or approval is not necessary. ??This test is used for clinical purposes. ??It should not be regarded as investigational or for research. ??[facility] is certified under the Clinical [...] part or completely in the following laboratories: [facility], [address] [place] [address], [address] [place] [address]. Cristo Funes MD LAB PATHOLOGY ORDER HOLA Final Result PATHOLOGY [facility] Laboratory Receiving [address] [place] [address] * Colonoscopy (09/01/2024 10:52 AM COMMUNICATIONS CLERK) Anatomical Region Laterality Modality Other Narrative Procedure Note Cristo Funes MD - 09/01/2024 10:52 AM CST ENDOSCOPY LAB Patient Name: Jones Sanabria Procedure Date: 09/01/2024 10:52AM Admit Type: Inpatient Room: [facility] 8 Date of : 1965 Instrument Name: [...] Final Result * eGFR (09/01/2024 5:45 AM COMMUNICATIONS CLERK) eGFR 82 >=60 mL/min/1. 73 m2 Comment: [...] last reviewed 2021. Blood 09/01/2024 5:45 AM COMMUNICATIONS CLERK 09/01/2024 6:26 AM COMMUNICATIONS CLERK us Cayden Smiley MD LAB BLOOD ORDERABLES Final Res ult [facility] [address] Department [place] [address] * (ABNORMAL) Basic metabolic panel (09/01/2024 5:45 AM COMMUNICATIONS CLERK) Sodium 137 135 - 145 mmol/L Potassium, [...] [facility] Blood 09/01/2024 5:45 AM COMMUNICATIONS CLERK 09/01/2024 6:26 AM COMMUNICATIONS CLERK us Cayden Smiley MD LAB BLOOD ORDERABLES Final Res ult [facility] [address] Department [place] [address] * CT Abdomen Pelvis W Contrast (08/31/2024 12:40 PM COMMUNICATIONS CLERK) Anatomical Region Laterality Modality Body N/A Computed Tomogra phy 08/31/2024 4:39 PM COMMUNICATIONS CLERK Impressions 08/31/2024 4:39 PM COMMUNICATIONS CLERK 1. ??Diffuse pancolitis, likely infectious/inflammatory. 2. ??Circumferential urinary bladder wall thickening, which may represent reactive changes or superimposed cystitis. ??Mural thickening is exaggerated by degree of decompression. Electronically signed by: Dejan Chino D.O. Narrative 08/31/2024 4:39 PM COMMUNICATIONS CLERK EXAMINATION: CT ABDOMEN PELVIS W CONTRAST HISTORY: [...] * (ABNORMAL) Differential, auto (08/31/2024 11:59 AM COMMUNICATIONS CLERK) Neutrophil abs 6.3 1.5 - 6.5 K/cumm [...] on 2017. Blood 08/31/2024 11:5 9 AM COMMUNICATIONS CLERK 08/31/2024 11:59 AM COMMUNICATIONS CLERK us Cayden Smiley MD LAB BLOOD ORDERABLES Final Res ult [facility] [address] Department [place] [address] * (ABNORMAL) CBC with auto differential (08/31/2024 11:59 AM COMMUNICATIONS CLERK) WBC 9.3 3.8 - 9.9 K/cumm Hgb [...] [facility] Blood 08/31/2024 11:5 9 AM COMMUNICATIONS CLERK 08/31/2024 12:11 PM COMMUNICATIONS CLERK us Cayden Smiley MD LAB BLOOD ORDERABLES Final Res ult [facility] [address] Department [place] [address] * Stool culture Stool Rectum (08/31/2024 11:59 AM COMMUNICATIONS CLERK) [facility] Direct Specimen Exam Shiga Toxin Testing: Negative for: Shigatoxin of enterohemorrhagic E.coli. Report Final Report: No Salmonella, Shigella, Aeromonas, Plesiomonas, Yersinia, Campylobacter, or E.coli O157:H7 isolated [facility] Stool (Rectum) 08/31/2024 11 :59 AM COMMUNICATIONS CLERK 08/31/2024 3:13 PM COMMUNICATIONS CLERK Narrative [facility] - 09/03/2024 2:00 PM COMMUNICATIONS CLERK This specimen is screened for the presence of Aeromonas, Campylobacter, E.coli-0157:H7, Plesiomonas, Salmonella, Shigella, Shiga Toxin producing E. coli, and Yersinia. us Ai NARAYAN LAB MICROBIOLOGY - GENERAL OR DERABLES Final Result Performing Organization Address [facility] Co de Phone Number [facility] [address] [employer] [place], [place] [phone] * CRP - Add on lab test (08/31/2024 11:14 AM COMMUNICATIONS CLERK) Acceptable Yes Blood 08/31/2024 11:1 4 AM COMMUNICATIONS CLERK 08/31/2024 11:14 AM COMMUNICATIONS CLERK Narrative [facility] - 08/31/2024 11:14 AM COMMUNICATIONS CLERK Name of Test->CRP us Ai NARAYAN LAB BLOOD ORDERABLES Final Re sult Performing Organization Address [facility] de Phone Number [facility] [address] Department [employer] [place], [place] [phone] * eGFR (08/31/2024 6:01 AM COMMUNICATIONS CLERK) eGFR 89 >=60 mL/min/1. 73 m2 Comment: [...] last reviewed 2021. Blood 08/31/2024 6:01 AM COMMUNICATIONS CLERK 08/31/2024 7:08 AM COMMUNICATIONS CLERK us Cayden Smiley MD LAB BLOOD ORDERABLES Final Res ult [facility] [address] Department [place] [address] * (ABNORMAL) Differential, auto (08/31/2024 6:01 AM COMMUNICATIONS CLERK) Neutrophil abs 8.4(H) 1.5 - 6.5 K/cumm [...] revised on 2017. Blood 08/31/2024 6:01 AM COMMUNICATIONS CLERK 08/31/2024 7:08 AM COMMUNICATIONS CLERK us Cayden Smiley MD LAB BLOOD ORDERABLES Final Res ult [facility] [address] Department [place] [address] * (ABNORMAL) CBC with auto differential (08/31/2024 6:01 AM COMMUNICATIONS CLERK) WBC 12.1(H) 3.8 - 9.9 K/cumm Hgb [...] [facility] Blood 08/31/2024 6:01 AM COMMUNICATIONS CLERK 08/31/2024 7:08 AM COMMUNICATIONS CLERK Cayden Smiley MD LAB BLOOD ORDERABLES Final Res ult Performing Organization Address [facility] Co de Phone Number [facility] [address] [facility] [employer] [place] [address] * (ABNORMAL) CRP (acute phase) (08/31/2024 6:01 AM COMMUNICATIONS CLERK) Pathologist [facility] CRP 85.5(H) <=10.0 mg/L Blood 08/31/2024 6:01 AM COMMUNICATIONS CLERK 08/31/2024 7:08 AM COMMUNICATIONS CLERK Cayden Smiley MD LAB BLOOD ORDERABLES Final Res ult Performing Organization Address [facility] Co de Phone Number [facility] [address] Department [employer] [place] [address] * Magnesium (08/31/2024 6:01 AM COMMUNICATIONS CLERK) Pathologist [facility] Magnesium 1.6 1.4 - 2.5 mg/dL Blood 08/31/2024 6:01 AM COMMUNICATIONS CLERK 08/31/2024 7:08 AM COMMUNICATIONS CLERK Result [facility] Cayden Smiley MD LAB BLOOD ORDERABLES Final Res ult Performing Organization Address [facility] Co de Phone Number [facility] [address] [facility] [employer] [place] [address] * Basic metabolic panel (08/31/2024 6:01 AM COMMUNICATIONS CLERK) Sodium 136 135 - 145 mmol/L Potassium, [...] [facility] Blood 08/31/2024 6:01 AM COMMUNICATIONS CLERK 08/31/2024 7:08 AM COMMUNICATIONS CLERK us Cayden Smiley MD LAB BLOOD ORDERABLES Final Res ult [facility] [address] [place] [place] [address] * (ABNORMAL) Calcium, ionized (08/30/2024 11:56 AM COMMUNICATIONS CLERK) [facility] Calcium, Ionized 3.61(L) 4.50 - 5.10 mg/dL Blood 08/30/2024 11:5 6 AM COMMUNICATIONS CLERK 08/30/2024 11:57 AM COMMUNICATIONS CLERK Cayden Smiley MD LAB BLOOD ORDERABLES Final Res ult [facility] [address] Department of [employer] [place] [address] * US RUQ (08/30/2024 8:29 AM COMMUNICATIONS CLERK) Anatomical Region Laterality Modality Abdomen N/A Ultrasound 08/30/2024 8:36 AM COMMUNICATIONS CLERK Impressions 08/30/2024 8:36 AM COMMUNICATIONS CLERK 1. Increased hepatic echogenicity consistent with hepatic steatosis. 2. ??Gallbladder containing stones and sludge without evidence of acute cholecystitis. Electronically signed by: Daen Pichardo M.D. Narrative 08/30/2024 8:36 AM COMMUNICATIONS CLERK EXAMINATION: ??LIMITED ABDOMINAL SONOGRAM HISTORY: ??Concern for [...] Dean Pichardo M.D. us Cristo Funes MD [facility] US PROCEDURES F inal Result * eGFR (08/30/2024 5:23 AM COMMUNICATIONS CLERK) eGFR 83 >=60 mL/min/1. 73 m2 Comment: [...] last reviewed 2021. Blood 08/30/2024 5:23 AM COMMUNICATIONS CLERK 08/30/2024 6:41 AM COMMUNICATIONS CLERK us Cayden Smiley MD LAB BLOOD ORDERABLES Final Res ult [facility] [address] Department [place] [address] * (ABNORMAL) Differential, auto (08/30/2024 5:23 AM COMMUNICATIONS CLERK) Neutrophil abs 6.2 1.5 - 6.5 K/cumm Imm gran abs 0.1 0.0 - 0.1 K/cumm [facility] Lymphocyte abs 1.0 0.8 - 3.3 K/cumm [facility] Monocyte abs 1.0(H) 0.2 - [...] revised on 2017. Blood 08/30/2024 5:23 AM COMMUNICATIONS CLERK 08/30/2024 6:42 AM COMMUNICATIONS CLERK us Cayden Smiley MD LAB BLOOD ORDERABLES Final Res ult [facility] [address] Department [place] [address] * (ABNORMAL) CBC with auto differential (08/30/2024 5:23 AM COMMUNICATIONS CLERK) WBC 8.4 3.8 - 9.9 K/cumm Hgb [...] [facility] Blood 08/30/2024 5:23 AM COMMUNICATIONS CLERK 08/30/2024 6:42 AM COMMUNICATIONS CLERK us Cayden Smiley MD LAB BLOOD ORDERABLES Final Res ult [facility] [address] Department [place] [address] * (ABNORMAL) Basic metabolic panel (08/30/2024 5:23 AM COMMUNICATIONS CLERK) [facility] Sodium 134(L) 135 - 145 mmol/L [...] [facility] Blood 08/30/2024 5:23 AM COMMUNICATIONS CLERK 08/30/2024 6:41 AM COMMUNICATIONS CLERK Cayden Smiley MD LAB BLOOD ORDERABLES Final Res ult Performing Organization Address [facility] Co de Phone Number [facility] [address] [place] [place] [address] * C. difficile testing Stool (08/29/2024 11:07 PM COMMUNICATIONS CLERK) Pathologist [facility] Result Positive Negative Toxin Result Negative [...] FOR REHABILITATION Stool 08/29/2024 11:0 7 PM COMMUNICATIONS CLERK 08/29/2024 11:07 PM COMMUNICATIONS CLERK Kelby Gore MD LAB MICROBIOLOGY - GENERAL ORDER HOLA Final Result Performing Organization Address [facility] Co de Phone Number [facility] [address] Department [employer] [place], [place] [phone] * (ABNORMAL) Hemoglobin and hematocrit (08/29/2024 1:56 PM COMMUNICATIONS CLERK) Hgb 8.3(L) 13.0 - 17.5 g/dL Hct 24.5(L) 38.9 - 50.3 % [facility] Blood 08/29/2024 1:56 PM COMMUNICATIONS CLERK 08/29/2024 2:03 PM COMMUNICATIONS CLERK us Cristo Funes MD LAB BLOOD ORDERABLE S Final Result [facility] [address] Department [place] [address] * Surgical pathology (08/29/2024 10:14 AM COMMUNICATIONS CLERK) Tissue (Esophageal biopsy) 08/29/2024 10:14 AM COMMUNICATIONS CLERK Narrative PATHOLOGY [facility] - 09/02/2024 8:13 AM COMMUNICATIONS CLERK [id number] [place], [place] ??[address] Tele: ?? Dara Paz MD - Crane Helper Note to Patients: This report may contain [...] Patient Name: ??DAVIDMEMOSARAH JONES R. Address: ??[address] [place], [place] ??[address] Gender: ??M : ??1965 (Age: 59) Service: ??Cardiology Location: ??[id number], ?? Hospital #: ??[id number] Patient Type: ??[facility] Accession #: ? [id number] Taken: ? 08/29/2024 Received ? 08/29/2024 Reported: [...] features are evident. Clerical Data Follows A; 53948, 18493, 63077, [id number] REPORT IMAGES AND/OR SCANNED DOCUMENTS ONLY VIEWABLE IN PDF FORMAT The immunohistochemical test(s) cited in this report, if any, was developed and its performance characteristics determined by [facility] Pathology Department. ??It has not been cleared or approved by the U.S. Food and Drug Administration. ??The FDA has determined that such clearance or approval is not necessary. ??This test is used for clinical purposes. ??It should not be regarded as investigational or for research. ??[facility] Laboratory is certified under the Clinical [...] part or completely in the following laboratories: [facility], [address] [facility], [address], [address] [place] [address]. Cristo Funes MD LAB PATHOLOGY ORDER HOLA Final Result PATHOLOGY [facility] Laboratory Receiving [facility] [place] [address] * EGD (08/29/2024 9:54 AM COMMUNICATIONS CLERK) Anatomical Region Laterality Modality Other Narrative Procedure Note Cristo Funes MD - 08/29/2024 9:54 AM CST ENDOSCOPY LAB Patient Name: Jones Sanabria Procedure Date: 08/29/2024 9:54 AM Admit Type: Inpatient Room: [facility] Date of : 1965 Instrument Name: [id number] [...] Result * Transfuse RBC (08/29/2024 7:52 AM COMMUNICATIONS CLERK) Blood us Kelby Gore MD BLOOD TRANSFUSION ORDERABLES Fin al Result [facility] [facility] [address] Department [place] [address] * (ABNORMAL) eGFR (08/29/2024 6:29 AM COMMUNICATIONS CLERK) eGFR 59(L) >=60 mL/min/1. 73 m2 Comment: [...] last reviewed 2021. Blood 08/29/2024 6:29 AM COMMUNICATIONS CLERK 08/29/2024 6:43 AM COMMUNICATIONS CLERK us Scott Brantley MD LAB BLOOD ORDERABLES Fin al Result [facility] [address] [place] [address] * (ABNORMAL) Differential, auto (08/29/2024 6:29 AM COMMUNICATIONS CLERK) Neutrophil abs 7.4(H) 1.5 - 6.5 K/cumm [...] revised on 2017. Blood 08/29/2024 6:29 AM COMMUNICATIONS CLERK 08/29/2024 6:41 AM COMMUNICATIONS CLERK Scott Brantley MD LAB BLOOD ORDERABLES Fin al Result Performing Organization Address [facility] Co de Phone Number [facility] [address] Department [place] [address] * (ABNORMAL) CBC with auto differential (08/29/2024 6:29 AM COMMUNICATIONS CLERK) WBC 9.5 3.8 - 9.9 K/cumm Hgb [...] [facility] Blood 08/29/2024 6:29 AM COMMUNICATIONS CLERK 08/29/2024 6:41 AM COMMUNICATIONS CLERK Scott Brantley MD LAB BLOOD ORDERABLES Fin al Result Performing Organization Address [facility] Co de Phone Number [facility] [address] Department of [employer] [place] [address] * (ABNORMAL) Manual Differential (08/29/2024 6:29 AM COMMUNICATIONS CLERK) [facility] Differential Auto RBC morphology Normal [facility] Platelet estimate Decreased(A ) [facility] Morphology scrn See Comment [facility] Comment:PLT: Platelet morpho logy normal Blood 08/29/2024 6:29 AM COMMUNICATIONS CLERK 08/29/2024 6:41 AM COMMUNICATIONS CLERK Scott Brantley MD LAB BLOOD ORDERABLES Fin al Result [facility] [address] [facility] [employer] [place] [address] * Magnesium (08/29/2024 6:29 AM COMMUNICATIONS CLERK) [facility] Magnesium 1.8 1.4 - 2.5 mg/dL Blood 08/29/2024 6:29 AM COMMUNICATIONS CLERK 08/29/2024 6:43 AM COMMUNICATIONS CLERK Roman Wells NP LAB BLOOD ORDERABLES Final Result [facility] [address] [facility] [employer] [place] [address] * (ABNORMAL) Basic metabolic panel (08/29/2024 6:29 AM COMMUNICATIONS CLERK) [facility] Sodium 138 135 - 145 mmol/L [...] [facility] Blood 08/29/2024 6:29 AM COMMUNICATIONS CLERK 08/29/2024 6:43 AM COMMUNICATIONS CLERK Scott Brantley MD LAB BLOOD ORDERABLES Fin al Result Performing Organization Address [facility] Co de Phone Number [facility] [address] [place] [address] * Prepare RBC (08/29/2024 2:41 AM COMMUNICATIONS CLERK) Pathologist [facility] Product code [id number] Unit Number [id number] [facility] Product Blood Type BPOS [facility] Dispense Status PRESUMED TRANSFUSED [facility] Blood 08/29/2024 2:41 AM COMMUNICATIONS CLERK 08/29/2024 2:40 AM COMMUNICATIONS CLERK Scott Brantley MD BLOOD BANK PRODUCT ORDER HOLA Final Result Performing Organization Address [facility] de Phone Number [facility] [address] Department of [employer] [place] [address] * (ABNORMAL) Hemoglobin and hematocrit (08/29/2024 12:51 AM COMMUNICATIONS CLERK) Hgb 7.3(L) 13.0 - 17.5 g/dL Hct 22.7(L) 38.9 - 50.3 % [facility] Blood 08/29/2024 12:5 1 AM COMMUNICATIONS CLERK 08/29/2024 12:51 AM COMMUNICATIONS CLERK Cristo Funes MD LAB BLOOD ORDERABLE S Final Result Performing Organization Address [facility] Co de Phone Number [facility] [address] Department of [employer] [place], [place] [id number] * Check Sample (08/28/2024 7:16 PM COMMUNICATIONS CLERK) ABO Rh B Positive MBC [facility] OTHER 08/28/2024 7:16 PM COMMUNICATIONS CLERK 08/28/2024 8:04 PM COMMUNICATIONS CLERK Scott Brantley MD LAB BLOOD ORDERABLES Fin al Result Performing Organization Address [facility] de Phone Number [facility] [address] Department [employer] [place] [address] MBC * (ABNORMAL) Hemoglobin and hematocrit (08/28/2024 7:16 PM COMMUNICATIONS CLERK) Hgb 8.6(L) 13.0 - 17.5 g/dL Hct 26.0(L) 38.9 - 50.3 % [facility] Blood 08/28/2024 7:16 PM COMMUNICATIONS CLERK 08/28/2024 7:16 PM COMMUNICATIONS CLERK Roman Wells NP LAB BLOOD ORDERABLES Final Result Performing Organization Address [facility] Co de Phone Number [facility] [address] Department of [employer] [place], [place] [id number] * Type and screen (08/28/2024 7:10 PM COMMUNICATIONS CLERK) ABO Rh B Positive Elvin, indirect Negative [facility] Blood 08/28/2024 7:10 PM COMMUNICATIONS CLERK 08/28/2024 7:21 PM COMMUNICATIONS CLERK Narrative [facility] - 08/28/2024 7:59 PM COMMUNICATIONS CLERK If not done within 72 hours prior to infusion. Has the patient had Daratumumab or Isatuximab in the past 6 months?->Unknown Scott Brantley MD LAB BLOOD BANK TEST HIPOLITO THORNTON Final Result [facility] [address] Department [place] [address] from Last 3 Months Insurance [facility] CHOICE [facility] HMO/PPO Address: [address] [address] [place] [address] [facility] [place] Advance Directives For more information, please contact: [phone] * Full Code (Latest Code Status on File) Date Activated Date Inactivated Comments 08/28/2024 5:56 PM 09/02/2024 5:31 PM Care Teams Staff Mechanical Engineer Relationship Specialty Start Date End Date Fernie Fulton MD [address] [place] [address] PCP - General 06/13/19 Fernie Fulton MD [address] [place] [address] Internal Medicine 06/13/19
--- OUTSIDE RECORDS SUMMARY | 2024-09-04 04:10 | XMS_ITS | Encounter Summary ---
Author Organization [facility] Address [address] [place] [address]. [place], [place] [id number] [place] [address] Care Team Providers Care Transit Proof Machine Operator Name Role Phone Fernie Fulton MD Primary Care Provider [phone] Encounter Details Date Type Department Care Team (Late st Contact Info) Description 08/30/2020 9:34 AM RADIOTELEPHONE OPERATOR - 08/30/2020 10:07 AM RADIOTELEPHONE OPERATOR [facility] [address] [place] [address] Boyd Carpio MD [address] [facility] [address] [place] [address] RIGHT CATARACT REMOVAL WITH IOL IMPLANT Surgery Details Date/Time Status Location OR Service Patient Class Case Class Case Type Trauma Case? 08/30/2020 9:34 AM Posted [facility] OR OR 2 Ophthalmology Short Stay/Outpat ient Surgery No Panel 1 Procedure LRB Anes Op Region Wound Class Comments RIGHT CATARACT REMOVAL WITH IOL IMPLANT Right Monitor Anesthesia Care Eye Clean Surgeon Surgeon Role Service Panel Boyd Carpio MD Primary Ophthalmology 1 Special Needs 2833 documented in this encounter Social History Tobacco Use Types Packs/Day Years Used Date Smoking Tobacco: Former Smokeless Tobacco: Never Alcohol Use Standard Drinks/Week Comments Not Currently 0 (1 standard drink = 0.6 oz pur e alcohol) Sex and Gender Information Value Date Recorded Sex Assigned at Not on file Legal Sex Male 2:51 PM RADIOTELEPHONE OPERATOR Gender Identity Not on file Sexual Orientation Not on file COVID-19 Exposure Response Date Recorded In the last month, have you been in contact with someone who was confirmed or suspected to have Coronavirus / COVID-19? No / Unsure 08/30/2020 7:43 AM RADIOTELEPHONE OPERATOR documented as of this encounter Last Filed Vital Signs Vital Sign Reading Time Taken Comments Blood Pressure 166/99 08/30/2020 9:50 AM RADIOTELEPHONE OPERATOR Pulse 72 08/30/2020 9:50 AM RADIOTELEPHONE OPERATOR Temperature 37.1 ??C (98.7 ??F) 08/30/2020 9:05 AM CS T Respiratory Rate 20 08/30/2020 9:50 AM RADIOTELEPHONE OPERATOR Oxygen Saturation 96% 08/30/2020 9:50 AM RADIOTELEPHONE OPERATOR Inhaled Oxygen Concentration - - Weight 86.2 kg (190 lb) 08/30/2020 9:05 AM RADIOTELEPHONE OPERATOR Height 172.7 cm (5' 8 ) 08/30/2020 9:05 AM RADIOTELEPHONE OPERATOR Body Mass Index 28.89 08/30/2020 9:05 AM RADIOTELEPHONE OPERATOR documented in this encounter Discharge Instructions * Discharge Instructions* Letty Pan, RN - 08/30/2020 10:50 AM RADIOTELEPHONE OPERATOR [facility] POST-OP INSTRUCTIONS FOLLOWING [...] Ask you doctor. You must have a test driver for the day of surgery and your 1st post op exam. 11. ALWAYS WERE SUNGLASSES WHEN YOU GO OUTSIDE. These are found in your surgery kit. Dr. Carpio OFFICE [phone] AFTER HOURS EMERGENCY [phone] OTELEPHONE OPERATOR documented in this encounter Medications at Time [...] were discussed with the patient and/or family/personal patient access representative. Questions were answered and the patient/family/personal patient access representative verbalized understanding and desires to proceed. BOYD CARPIO MD OTELEPHONE OPERATOR documented in this encounter Nursing Notes * Ashley Valle RN - 08/30/2020 7:57 AM CST This nurse explained to pt that his COVID test results are not back yet so he will have to moved tothe last slot. Pt stated he understood OTELEPHONE OPERATOR documented in this encounter OR Notes * [...] room in satisfactory condition. BOYD CARPIO MD OTELEPHONE OPERATOR * Op Note - Boyd Carpio MD [...] room in satisfactory condition. BOYD CARPIO MD OTELEPHONE OPERATOR documented in this encounter Plan of Treatment Not on file documented as of this encounter Procedures Procedure Name Priority Date/Time Associated Diagnosis Comments CATARACT REMOVAL WITH IOL IMPLANT 08/30/2020 10:19 AM RADIOTELEPHONE OPERATOR H25.11 Special Needs 0730 documented in this encounter Visit Diagnoses Not on filedocumented in this encounter Administered Medications Inactive Administered Medications - up to 3 most recent administrations Medication Order MAR Action Action Date Dose Rate Site apraclonidine (IOPIDINE) 0.5 % ophthalmic solution As needed, Starting on Sun08/30/20 at 1033, Until Sun08/30/20 at 1036, Intra-Op Given 08/30/2020 10:33 AM RADIOTELEPHONE OPERATOR 2 drops besifloxacin (BESIVANCE) 0.6 % ophthalmic suspension 1 drop 1 drop, Right Eye, Every 5 min, 3 doses, First dose on Sun08/30/20 at 0945, Last dose on Sun08/30/20 at 0955, Instill to operative eye, Pre-Op Given 08/30/2020 9:45 AM RADIOTELEPHONE OPERATOR 1 drop Given 08/30/2020 9:32 AM RADIOTELEPHONE OPERATOR 1 drop Given 08/30/2020 9:25 AM RADIOTELEPHONE OPERATOR 1 drop BUpivacaine (PF) (MARCAINE) 0.5 % injection 0.1 mL 0.1 mL, Right Eye, Every 5 min, 3 doses, First dose on Sun08/30/20 at 0945, Last dose on Sun08/30/20 at 0955, Instill to operative eye, Pre-Op Given 08/30/2020 9:44 AM RADIOTELEPHONE OPERATOR 0.1 mLs Given 08/30/2020 9:30 AM RADIOTELEPHONE OPERATOR 10 mLs Given 08/30/2020 9:24 AM RADIOTELEPHONE OPERATOR 0.1 mLs EPINEPHrine 0.3 mg in balanced salts (BSS) irrigation solution As needed, Starting on Sun08/30/20 at 1033, Until Sun08/30/20 at 1036, Intra-Op Given 08/30/2020 10:33 AM RADIOTELEPHONE OPERATOR 500 mLs flurbiprofen (OCUFEN) 0.03 % ophthalmic solution 1 drop 1 drop, Right Eye, Every 5 min, 3 doses, First dose on Sun08/30/20 at 0945, Last dose on Sun08/30/20 at 0955, Instill to operative eye, Pre-Op Given 08/30/2020 9:45 AM RADIOTELEPHONE OPERATOR 1 drop Given 08/30/2020 9:31 AM RADIOTELEPHONE OPERATOR 1 drop Given 08/30/2020 9:25 AM RADIOTELEPHONE OPERATOR 1 drop lidocaine (PF) (XYLOCAINE) 1 % injection As needed, Starting on Sun08/30/20 at 1024, Until Sun08/30/20 at 1036, Intra-Op Given 08/30/2020 10:24 AM RADIOTELEPHONE OPERATOR 0.25 mLs methazolAMIDE (NEPTAZANE) tablet 50 mg 50 mg, Oral, Once, 1 dose, On Sun08/30/20 at 1045, If NOT allergic to Sulfa, Post-Op Given 08/30/2020 10:58 AM RADIOTELEPHONE OPERATOR 50 mg moxifloxacin (VIGAMOX) 0.5 % ophthalmic solution As needed, Starting on Sun08/30/20 at 1033, Until Sun08/30/20 at 1036, Intra-Op Given 08/30/2020 10:33 AM RADIOTELEPHONE OPERATOR 2 drops nmpnagnn-thknwpzxjh-uejrgwhoz (NEOSPORIN) ophthalmic ointment As needed, Starting on Sun08/30/20 at 1034, Until Sun08/30/20 at 1036, Intra-Op Given 08/30/2020 10:34 AM RADIOTELEPHONE OPERATOR 1 mL phenylephrine (MYDFRIN) 2.5 % ophthalmic solution 1 drop 1 drop, Right Eye, Every 5 min, 3 doses, First dose on Sun08/30/20 at 0945, Last dose on Sun08/30/20 at 0955, Instill to operative eye, Pre-Op Given 08/30/2020 9:44 AM RADIOTELEPHONE OPERATOR 1 drop Given 08/30/2020 9:31 AM RADIOTELEPHONE OPERATOR 1 drop Given 08/30/2020 9:25 AM RADIOTELEPHONE OPERATOR 1 drop povidone-iodine (BETADINE) 5 % ophthalmic solution As needed, Starting on Sun08/30/20 at 1024, Until Sun08/30/20 at 1036, Intra-Op Given 08/30/2020 10:24 AM RADIOTELEPHONE OPERATOR 2 drops tropicamide (MYDRIACYL) 1 % ophthalmic solution 1 drop 1 drop, Right Eye, Every 5 min, 2 doses, First dose on Sun08/30/20 at 0945, Last dose on Sun08/30/20 at 0950, Instill to operative eye, Pre-Op Given 08/30/2020 9:31 AM RADIOTELEPHONE OPERATOR 1 drop Given 08/30/2020 9:24 AM RADIOTELEPHONE OPERATOR 1 drop documented in this encounter Active and Recently Administered Medications Times are shown in RADIOTELEPHONE OPERATOR. Scheduled Medication Order 08/28/2020 08/29/2020 08/30/2020 besifloxacin [...] (Given - Provid er: Boyd Carpio MD) wkdacmpd-fxdqkronkl-rfaecpmly (NEOSPORIN) ophthalmic ointment (CANCELED) As needed, Starting [...] Rule Out 08/28/2020 08/28/2020 08/30/2020 12:50 PM RADIOTELEPHONE OPERATOR documented as of this encounter Care Teams Transit Proof Machine Operator Relationship Specialty Start Date End Date Fernie Fulton MD [address] [place] [address] PCP - General INTERNAL MEDICINE 08/28/20 documented as of this encounter
--- OUTSIDE RECORDS SUMMARY | 2024-09-04 04:10 | XMS_ITS | Encounter Summary ---
Author Organization [facility] Address [address] [place] [address]. [place], [place] [address] [place] [address] Care Team Providers Care Collaborative Physician Name Role Phone Fernie Fulton MD Primary Care Provider [phone] Encounter Details Date Type Department Care Team (Late st Contact Info) Description 08/23/2020 Prep for Procedure [facility] [address] [place], [place] [id number] Alcon Desir MD [address] [facility] [address] [place] [address] Social History Tobacco Use Types Packs/Day Years Used Date Smoking Tobacco: Former Smokeless Tobacco: Never Alcohol Use Standard Drinks/Week Comments Not Currently 0 (1 standard drink = 0.6 oz pur e alcohol) Sex and Gender Information Value Date Recorded Sex Assigned at Not on file Legal Sex Male 2:51 PM BUSINESS CONTROL SPECIALIST Gender Identity Not on file Sexual Orientation Not on file documented as of this encounter Plan of Treatment Not on file documented as of this encounter Visit Diagnoses Diagnosis Preop testing- Primary Preoperative examination, unspecified documented in this encounter Additional Health Concerns Infection Onset Date Last Indicated Resolved Time COVID-19 Rule Out 08/28/2020 08/28/2020 08/30/2020 12:50 PM BUSINESS CONTROL SPECIALIST documented as of this encounter Care Teams Collaborative Physician Relationship Specialty Start Date End Date Fernie Fulton MD [address] [place] [address] PCP - General INTERNAL MEDICINE 08/28/20 documented as of this encounter
--- OUTSIDE RECORDS SUMMARY | 2024-09-04 04:10 | XMS_ITS | Encounter Summary ---
Author Organization [facility] Address [address] [place] [address]. [place], [place] [address] [place] [address] Care Team Providers Care Vacuum Worker Name Role Phone Fernie Fulton MD Primary Care Provider [phone] Encounter Details Date Type Department Care Team (Late st Contact Info) Description 08/30/2020 10:18 AM TONGUE LINING STITCHER Anesthesia Event [facility] [address] [place] [address] Sejal Salinas CRNA [address] [place] [address] Angelika Sinha CRNA [address] [place] [address] Anesthesia Record Procedure Summary Procedure Name Responsible Anesthesiologist Anesthesia Start Time Anesthesia Stop Time RIGHT CATARACT REMOVAL WITH IOL IMPLANT (Right: Eye) Sejal Salinas CRNA 08/30/20 1018 08/30/20 1038 Events Date Time Event Comment 08/30/2020 0913 0913 AN Anesthesia Prepped 0913 AN HAND RUG CLEANER Prepped 1018 An Start Patient ID and [...] on file Legal Sex Male 2:51 PM TONGUE LINING STITCHER Gender Identity Not on file Sexual Orientation Not on file COVID-19 Exposure Response Date Recorded In the last month, have you been in contact with someone who was confirmed or suspected to have Coronavirus / COVID-19? No / Unsure 08/30/2020 7:43 AM TONGUE LINING STITCHER documented as of this encounter OR Notes [...] Postoperative Hydration: euvolemic Complications: no anesthesia complication UE LINING STITCHER * Anesthesia Preprocedure Evaluation - Kirit Marroquin [...] Alcon Desir MD at 08/30/2020 9:38 AM TONGUE LINING STITCHER UE LINING STITCHER UE LINING STITCHER UE LINING STITCHER UE LINING STITCHER UE LINING STITCHER documented in this encounter Plan of Treatment [...] 1038, Anesthesia Intra-Op Given 08/30/2020 10:26 AM TONGUE LINING STITCHER 0.5 mg Given 08/30/2020 10:23 AM TONGUE LINING STITCHER 0.5 mg Given 08/30/2020 10:16 AM TONGUE LINING STITCHER 1 mg documented in this encounter Additional Health Concerns Infection Onset Date Last Indicated Resolved Time COVID-19 Rule Out 08/28/2020 08/28/2020 08/30/2020 12:50 PM TONGUE LINING STITCHER documented as of this encounter Care Teams Vacuum Worker Relationship Specialty Start Date End Date Kopjas, Fernie, MD [address] [facility] [address] [place] [address] PCP - General INTERNAL MEDICINE 08/28/20 documented as of this encounter
--- OUTSIDE RECORDS SUMMARY | 2024-09-04 04:11 | XMS_ITS | Encounter Summary ---
Author Organization [facility] Healthcare Address [address] [place] [address] Care Team Providers Care Block Sorter Name Role Phone Fernie Fulton MD Primary Care Provider [phone] Fernie Fulton MD Unavailable [phone] Encounter Details Date Type Department Care Team (Late st Contact Info) Description 06/13/2019 5:14 PM CDT - 06/15/2019 1:39 PM CDT Hospital Encounter [facility] ADMIT Unknown, Nick Reagan MD 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 Gender Identity Not on file Sexual Orientation [...] CDT) Sodium 136 135 - 145 mmol/L [facility] Potassium 3.1(L) 3.3 - 5.1 mmol/L [facility] Chloride 100 96 - 108 mmol/L [facility] Carbon Dioxide 27 22 - 32 mmol/L [facility] Anion Gap 9 7 - 16 [facility] Glucose 97 70 - 100 mg/dL [facility] BUN 11 8 - 25 mg/dL [facility] Creatinine 0.8 0.5 - 1.3 mg/dL [facility] Comment: NOTE: Estimated GFR (Cockroft-Gault) will NOT be calculated unless patient Height and Weight were entered. Also, Kidney Disease Stage (GFR) and Estimated GFR (Cockroft-Gault) will NOT be calculated if Creatinine result is <0.2. Kidney Disease Stage >90 mL/MIN [facility] Comment: NOTE; ??The GFR is an estimated [...] on dialysis Est GFR (Cockcroft-G) 104 ml/MIN [facility] Comment: Estimated GFR(Cockroft-Gault)is used to calculate patient medication dosage Calcium 8.7 8.6 - 10.3 mg/dL [facility] 06/15/2019 5:53 AM CDT 06/15/2019 6:54 AM CDT Narrative Resulting Agency Comment IN us Nick Stewart MD LAB BLOOD ORDERABLES Final Result [facility] [address] [place] [address], [facility] [phone] * (ABNORMAL) CBC with auto differential (06/15/2019 5:53 AM CDT) WBC 8.0 3.8 - 9.9 X10 3/ul [facility] RBC 3.55(L) 4.30 - 5.80 x10 6/ul [facility] Hemoglobin 9.2(L) 13.0 - 17.5 g/dL [facility] Hct 30.1(L) 38.9 - 50.3 % [facility] MCV 84.8 81.3 - 96.4 fl [facility] MCH 25.9(L) 27.1 - 33.3 pg [facility] MCHC 30.6(L) 32.3 - 35.7 g/dl [facility] RDW 21.5(H) 11.1 - 14.9 % [facility] Plt Count 160 150 - 400 x10 3/ul [facility] MPV 11.0 9.1 - 12.3 fl [facility] Neut % 70.2 % [facility] Immature Gran % 0.6 % [facility] Lymph % 9.3 % [facility] Llano % 18.0 % [facility] Eos % 1.5 % [facility] AUTO BASO % 0.4 % [facility] NEUTROPHIL ABS # 5.6 1.7 - 6.5 x10 3/ul [facility] Immature Gran # 0.1 0.0 - 0.1 x10 3/ul [facility] Absolute Lymphs (auto) 0.7(L) 0.8 - 3.3 x10 3/ul [facility] Absolute Monos (auto) 1.4(H) 0.2 - 0.8 x10 3/ul [facility] Absolute Eos (auto) 0.1 0.0 - 0.5 x10 3/ul [facility] BASOPHIL ABS # 0.0 0.0 - 0.1 x10 3/ul [facility] Nucleat RBC Rel Count 0.0 #/100WBC [facility] NRBC abs 0.00 0.00 - 0.01 x10 3/ul [facility] Absolute Neutrophils 5,600 200 - 8,000 /ul [facility] 06/15/2019 5:53 AM CDT 06/15/2019 6:54 AM CDT Narrative Resulting Agency Comment IN us Nick Stewart MD LAB BLOOD ORDERABLES Final Result [facility] [address] [phone] * Drugs of Abuse Screen, Urine without Confirmation (06/14/2019 6:47 AM CDT) Amphetamines NOT DETECTED [facility] Comment: This assay uses 500 ng/mL as a cutoff for a positive result. Barbiturates NOT DETECTED [facility] Comment: This assay uses 200 ng/mL as a cutoff for a positive result. Urine Fentanyl NOT DETECTED [facility] Comment: This assay uses 1 ng/mL as a cutoff for a positive result. Benzodiazepines NOT DETECTED [facility] Comment: This assay uses 100 ng/mL as a cutoff for a positive result. Cannabinoids NOT DETECTED [facility] Comment: This assay uses 50 ng/mL as a cutoff for a positive result. Cocaine NOT DETECTED [facility] Comment: This assay uses 150 ng/mL as a cutoff for a positive result. Opiates NOT DETECTED [facility] Comment: This assay uses 300 ng/mL as a cutoff for a positive result. Urine methadone NOT DETECTED [facility] Comment: This assay uses 300 ng/mL as a cutoff for a positive result. Urine phencyclidine plus NOT DETECTED [facility] Comment: This assay uses 25 ng/mL as a cutoff for a positive result. Oxycodone NOT DETECTED [facility] Comment: This assay uses 100 ng/mL as a cutoff for a positive result. Urine Creatinine/ЕЛЕНА 397.0 mg/dL [facility] Comment: If Creatinine is < 40 mg/dL, recollection is suggested. 06/14/2019 6:47 AM CDT 06/14/2019 7:04 AM CDT Narrative [facility] - 06/14/2019 7:34 AM CDT Collected By DBS Resulting Agency Comment IN us Radha NARAYAN LAB URINE ORDERABLES Fin al Result [facility] [address] [place] [address], [facility] [phone] * (ABNORMAL) URINALYSIS, COMPLETE W/REFLEX TO CULTURE (06/14/2019 6:47 AM CDT) Ur Collection Type CLEAN CATCH [facility] Ur Culture Indicated? C S NOT INDICATED [facility] Urine Color LUIS ANTONIO YELLOW [facility] Urine Clarity CLOUDY CLEAR [facility] Urine Glucose (UA) NORMAL NORMAL mg/dL [facility] Urine Bilirubin NEGATIVE NEGATIVE mg/dl [facility] Urine Ketones 20 NEGATIVE mg/dL [facility] Ur Specific [place] 1.018 1.005 - 1.025 [facility] Urine Blood NEGATIVE NEGATIVE mg/dl [facility] Urine pH 5.0 5.0 - 8.0 [facility] Urine Protein 30(A) NEGATIVE mg/dL [facility] Urine Urobilinogen NORMAL NORMAL mg/dL [facility] Urine Nitrite NEGATIVE NEGATIVE [facility] Ur Leukocyte Esterase NEGATIVE NEGATIVE Solomon/ul [facility] Ur Microscopic Review Indicated or Ordered [facility] Urine RBC <1 0 - 2 /HPF [facility] Urine WBC 3 0 - 2 /HPF [facility] Urine Mucus Few /LPF [facility] Ur Squamous Epith Cells Rare /HPF [facility] Hyaline Casts 27 0 - 2 /LPF [facility] Granular Casts 2 /LPF [facility] 06/14/2019 6:47 AM CDT 06/14/2019 7:04 AM CDT Narrative [facility] - 06/14/2019 7:33 AM CDT Indication(s) for ordering ?? Increased freq/urgency DBS Clean catch Resulting Agency Comment IN Radha NARAYAN LAB URINE ORDERABLES Fin al Result Performing Organization Address [facility] Co de Phone Number [address] [phone] * Magnesium (06/14/2019 5:48 AM CDT) Magnesium 1.9 1.6 - 2.6 mg/dL [facility] Comment: Results reviewed Magnesium sulfate therapy: ??3.0-9.1 mg/dL 06/14/2019 5:48 AM CDT 06/14/2019 6:16 AM CDT Narrative Resulting Agency Comment IN us Nick Stewart MD LAB BLOOD ORDERABLES Final Result [address] [phone] * Lipase (06/14/2019 5:48 AM CDT) Lipase 49 13 - 60 U/L [facility] 06/14/2019 5:48 AM CDT 06/14/2019 6:16 AM CDT Narrative Resulting Agency Comment IN Nick Stewart MD LAB BLOOD ORDERABLES Final Result [facility] [address] [place] [address], [facility] [phone] * (ABNORMAL) Basic metabolic panel (06/14/2019 5:48 AM CDT) Sodium 137 135 - 145 mmol/L [facility] Potassium 4.0 3.3 - 5.1 mmol/L [facility] Chloride 94(L) 96 - 108 mmol/L [facility] Carbon Dioxide 28 22 - 32 mmol/L [facility] Anion Gap 15 7 - 16 [facility] Glucose 88 70 - 100 mg/dL [facility] BUN 21 8 - 25 mg/dL [facility] Creatinine 1.3 0.5 - 1.3 mg/dL [facility] Comment: NOTE: Estimated GFR (Cockroft-Gault) will NOT be calculated unless patient Height and Weight were entered. Also, Kidney Disease Stage (GFR) and Estimated GFR (Cockroft-Gault) will NOT be calculated if Creatinine result is <0.2. Kidney Disease Stage 61 mL/MIN [facility] Comment: NOTE; ??The GFR is an estimated [...] on dialysis Est GFR (Cockcroft-G) 64 ml/MIN [facility] Comment: Estimated GFR(Cockroft-Gault)is used to calculate patient medication dosage Calcium 9.1 8.6 - 10.3 mg/dL [facility] 06/14/2019 5:48 AM CDT 06/14/2019 6:16 AM CDT Narrative Resulting Agency Comment IN us Nick Stewart MD LAB BLOOD ORDERABLES Edite d Result - Final [facility] [address] [place] [address], [facility] [phone] * (ABNORMAL) CBC with auto differential (06/14/2019 5:48 AM CDT) WBC 7.9 3.8 - 9.9 X10 3/ul [facility] RBC 3.90(L) 4.30 - 5.80 x10 6/ul [facility] Hemoglobin 10.1(L) 13.0 - 17.5 g/dL [facility] Hct 31.9(L) 38.9 - 50.3 % [facility] MCV 81.8 81.3 - 96.4 fl [facility] MCH 25.9(L) 27.1 - 33.3 pg [facility] MCHC 31.7(L) 32.3 - 35.7 g/dl [facility] RDW 22.4(H) 11.1 - 14.9 % [facility] Plt Count 153 150 - 400 x10 3/ul [facility] MPV 10.5 9.1 - 12.3 fl [facility] Neut % 68.0 % [facility] Immature Gran % 0.9 % [facility] Lymph % 10.5 % [facility] Llano % 18.8 % [facility] Eos % 1.3 % [facility] AUTO BASO % 0.5 % [facility] NEUTROPHIL ABS # 5.4 1.7 - 6.5 x10 3/ul [facility] Immature Gran # 0.1 0.0 - 0.1 x10 3/ul [facility] Absolute Lymphs (auto) 0.8 0.8 - 3.3 x10 3/ul [facility] Absolute Monos (auto) 1.5(H) 0.2 - 0.8 x10 3/ul [facility] Absolute Eos (auto) 0.1 0.0 - 0.5 x10 3/ul [facility] BASOPHIL ABS # 0.0 0.0 - 0.1 x10 3/ul [facility] Nucleat RBC Rel Count 0.0 #/100WBC [facility] NRBC abs 0.00 0.00 - 0.01 x10 3/ul [facility] Absolute Neutrophils 5,400 200 - 8,000 /ul [facility] 06/14/2019 5:48 AM CDT 06/14/2019 6:16 AM CDT Narrative Resulting Agency Comment IN us Nick Stewart MD LAB BLOOD ORDERABLES Final Result [facility] [address] [place] [address], [facility] [phone] * ECG 12 lead (06/13/2019 3:54 PM CDT) Ventricular Rate EKG/Min 106 BPM ER RADIOLOGY Atrial Rate 106 BPM ER RADIOLOGY MS-Interval (MSEC) 144 ms ER RADIOLOGY QRS-Interval (MSEC) 94 ms ER RADIOLOGY QT-Interval (MSEC) 390 ms ER RADIOLOGY QTc 518 ms ER RADIOLOGY P Petty 36 degrees ER RADIOLOGY R Petty 26 degrees ER RADIOLOGY T Petty 7 degrees ER RADIOLOGY Diagnosis Sinus tachycardia Possible Inferior infarct , age undetermined Abnormal ECG No previous ECGs available ER RADIOLOGY 06/13/2019 3:54 PM CDT 06/13/2019 8:33 PM CDT Narrative Resulting Agency Comment PREADT us Radha NARAYAN ECG ORDERABLES Final Re sult ER RADIOLOGY * (ABNORMAL) Comprehensive metabolic panel (06/13/2019 3:02 PM CDT) Sodium 139 135 - 145 mmol/L [facility] Potassium 3.2(L) 3.3 - 5.1 mmol/L [facility] Chloride 88(L) 96 - 108 mmol/L [facility] Carbon Dioxide 24 22 - 32 mmol/L [facility] Anion Gap 27(H) 7 - 16 [facility] Glucose 115(H) 70 - 100 mg/dL [facility] BUN 16 8 - 25 mg/dL [facility] Creatinine 2.4(H) 0.5 - 1.3 mg/dL [facility] Comment: NOTE: Estimated GFR (Cockroft-Gault) will NOT be calculated unless patient Height and Weight were entered. Also, Kidney Disease Stage (GFR) and Estimated GFR (Cockroft-Gault) will NOT be calculated if Creatinine result is <0.2. Kidney Disease Stage 30 mL/MIN [facility] Comment: NOTE; ??The GFR is an estimated [...] on dialysis Est GFR (Cockcroft-G) 35 ml/MIN [facility] Comment: Estimated GFR(Cockroft-Gault)is used to calculate patient medication dosage Calcium 9.6 8.6 - 10.3 mg/dL [facility] Total Protein 7.7 6.4 - 8.3 g/dL [facility] Albumin 4.5 3.5 - 5.0 g/dL [facility] Globulin 3.2 2.3 - 3.5 gm/dL [facility] Albumin/Globulin Ratio 1.4 1.1 - 1.8 [facility] Total Bilirubin 0.8 0.0 - 1.2 mg/dL [facility] AST 61(H) 0 - 40 U/L [facility] ALT 35 0 - 41 U/L [facility] Alkaline Phosphatase 82 40 - 129 U/L [facility] 06/13/2019 3:02 PM CDT 06/13/2019 3:06 PM CDT Narrative Resulting Agency Comment ER us Notinfile Unknown LAB BLOOD ORDERABLES Final Res ult [facility] [address] [place] [address], [facility] [phone] * (ABNORMAL) CBC with auto differential (06/13/2019 3:02 PM CDT) WBC 10.5(H) 3.8 - 9.9 X10 3/ul [facility] RBC 4.33 4.30 - 5.80 x10 6/ul [facility] Hemoglobin 11.2(L) 13.0 - 17.5 g/dL [facility] Hct 34.9(L) 38.9 - 50.3 % [facility] MCV 80.6(L) 81.3 - 96.4 fl [facility] MCH 25.9(L) 27.1 - 33.3 pg [facility] MCHC 32.1(L) 32.3 - 35.7 g/dl [facility] RDW 23.0(H) 11.1 - 14.9 % [facility] Plt Count 164 150 - 400 x10 3/ul [facility] MPV 9.8 9.1 - 12.3 fl [facility] Neut % 64.5 % [facility] Immature Gran % 1.0 % [facility] Lymph % 14.0 % [facility] Llano % 19.6 % [facility] Eos % 0.3 % [facility] AUTO BASO % 0.6 % [facility] NEUTROPHIL ABS # 6.8(H) 1.7 - 6.5 x10 3/ul [facility] Immature Gran # 0.1 0.0 - 0.1 x10 3/ul [facility] Absolute Lymphs (auto) 1.5 0.8 - 3.3 x10 3/ul [facility] Absolute Monos (auto) 2.1(H) 0.2 - 0.8 x10 3/ul [facility] Absolute Eos (auto) 0.0 0.0 - 0.5 x10 3/ul [facility] BASOPHIL ABS # 0.1 0.0 - 0.1 x10 3/ul [facility] Nucleat RBC Rel Count 0.0 #/100WBC [facility] NRBC abs 0.00 0.00 - 0.01 x10 3/ul [facility] Absolute Neutrophils 6,800 200 - 8,000 /ul [facility] 06/13/2019 3:02 PM CDT 06/13/2019 3:06 PM CDT Narrative Resulting Agency Comment ER us Notinfile Unknown LAB BLOOD ORDERABLES Final Res ult [address] [address], [facility] [phone] documented in this encounter Visit Diagnoses Not on filedocumented in this encounter Care Teams Block Sorter Relationship Specialty Start Date End Date Fernie Fulton MD [address] [place] [address] PCP - General 06/13/19 Fernie Fulton MD [address] [place] [address] Internal Medicine 06/13/19 documented as of this encounter
--- OUTSIDE RECORDS SUMMARY | 2024-09-04 04:11 | XMS_ITS | Encounter Summary ---
Author Organization [facility] Address [address] [place] [address] Care Team Providers Care Automotive Parts Counter Associate Name Role Phone Fernie Fulton MD Primary Care Provider [phone] Reason for Visit * (Routine) - Closed Specialty Diagnoses / Procedures Referred By Contac t Referred To Contact Diagnoses Syncope and collapse Procedures MCT Mobile Cardiac Telemetry Event Monitor Jason Salazar MD Phone: tel: fax: [facility] Referral ID Status Reason Start Date Expiration Date Visits Re quested Visits Authorized [id number] Closed 10/16/2018 04/26/2020 1 1 Encounter Details Date Type Department Care Team (Latest Contact Info) Description 10/18/2018 10:30 AM DENTAL APPLIANCE FIXER Ancillary Procedure [facility] Medical [facility] Cardiology [address] [place] [address] Syncope and collapse Social History Tobacco Use Types Packs/Day Years Used Date Smoking Tobacco: Never Assessed Alcohol Use Standard Drinks/Week Comments Yes 0 (1 standard drink = 0.6 oz pur e alcohol) Sex and Gender Information Value Date Recorded Sex Assigned at Not on file 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 Gender Identity Not on file Sexual Orientation Not on file documented as of this encounter Plan of Treatment Not on file documented as of this encounter Procedures Procedure Name Priority Date/Time Associated Diagnosis Comments MCT - MOBILE CARDIAC TELEMETRY EVENT MONITOR Routine 10/18/2018 10:34 AM DENTAL APPLIANCE FIXER Syncope and collapse documented in this encounter Results * MCT Mobile Cardiac Telemetry Event Monitor (10/18/2018 10:34 AM DENTAL APPLIANCE FIXER) Anatomical Region Laterality Modality Other Narrative 11/06/2018 4:38 PM DENTAL APPLIANCE FIXER AMBULATORY AUTOMOBILE MECHANIC 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 Elia Cohen MD, [facility] Procedure Note Elia Cohen MD - 11/06/2018 AMBULATORY AUTOMOBILE MECHANIC 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 Elia Cohen MD, [facility] Jason Salazar MD CV CARDIAC SERVICES PROC EDURES Final Result documented in this encounter Visit Diagnoses Diagnosis Syncope and collapse documented in this encounter Care Teams Automotive Parts Counter Associate Relationship Specialty Start Date End Date Fernie Fulton MD [address] [place] [address] PCP - General Internal Medicine 10/18/18 06/12/19 documented as of this encounter
--- OUTSIDE RECORDS SUMMARY | 2024-09-04 04:11 | XMS_ITS | Encounter Summary ---
Author Organization [facility] Address [address] [place] [address] Care Team Providers Care [employer] Name Role Phone Fernie Fulton MD Primary Care Provider [phone] Fernie Fulton MD Unavailable [phone] Encounter Details Date Type Department Care Team (Late st Contact Info) Description 11/15/2020 Orders Only [facility] Cardiology [address] [place] [address] Dejan Anderson MD [address] [place] [address] Social History Tobacco Use Types Packs/Day Years Used Date Smoking Tobacco: Never Assessed Alcohol Use Standard Drinks/Week Comments Yes 0 (1 standard drink = 0.6 oz pur e alcohol) Sex and Gender Information Value Date Recorded Sex Assigned at Not on file Legal Sex Male 3:52 AM [employer]PLEN[employer]MENT [employer] Gender Identity Not on file Sexual Orientation [...] on filedocumented in this encounter Care Teams [employer] Relationship Specialty Start Date End Date Fernie Fulton MD [address] [place] [address] PCP - General 06/13/19 Fernie Fulton MD [address] [place] [address] Internal Medicine 06/13/19 documented as of this encounter
--- OUTSIDE RECORDS SUMMARY | 2024-09-04 04:11 | XMS_ITS | Encounter Summary ---
Author Organization [facility] Healthcare Address [address] [place] [address] Care Team Providers Care [employer] Lead Name Role Phone Fernie Fulton MD Primary Care Provider [phone] Fernie Fulton MD Unavailable [phone] Encounter Details Date Type Department Care Team (Late st Contact Info) Description 08/27/2024 Orders Only [facility] [address] [place] [address] Madie Duran MD [address] [place] [id number] Social History Tobacco Use Types Packs/Day Years Used Date Smoking Tobacco: Never Assessed Alcohol Use Standard Drinks/Week Comments Yes 0 (1 standard drink = 0.6 oz pur e alcohol) [facility] [place] Utilities Answer Date Recorded In the past 12 months has [employer], gas, oil, or water [employer] threatened to shut off services in your home? No 09/01/2024 Social Connection and Isolation Panel [NHANES] A nswer Date Recorded In a typical week, how many times do you talk on the phone with family, friends, or neighbors? Three times a week 09/01/20 How often do you get togethe r with friends or relatives? Twice a week 09/01/2024 Attends [employer] Not on file 09/01 Active Member [...] any time in the past 12 m [facility], were you homeless or living in a chcf (including now)? No 09/01/2024 Personal Safety Answer Date Recorded Have you ever been in or are you currently in a harmful physical or emotional relationship or is someone making you feel afraid or unsafe? Denies 08/28/2024 Sex and Gender Information Value Date Recorded Sex Assigned at Not on file Legal Sex Male 3:52 AM [employer] Gender Identity Not on file Sexual Orientation Not on file documented as of this encounter Plan of Treatment Not on file documented as of this encounter Visit Diagnoses Not on filedocumented in this encounter Additional Health Concerns Infection Onset Date Last Indicated Resolved Time C. difficile suspected 08/29/2024 08/29/202408/29 11:31 PM [employer] documented as of this encounter Care Teams [employer] Lead Relationship Specialty Start Date End Date Fernie Fulton MD [address] [place] [address] PCP - General 06/13/19 Fernie Fulton MD [address] [place] [address] Internal Medicine 06/13/19 documented as of this encounter
--- OUTSIDE RECORDS SUMMARY | 2024-09-04 04:11 | XMS_ITS | Encounter Summary ---
Author Organization [facility] Healthcare Address [address] [place] [address] Care Team Providers Care Avionics Manager Name Role Phone Fernie Fulton MD Primary Care Provider [phone] Fernie Fulton MD Unavailable [phone] Reason for Visit * Auth/Cert (Routine) Specialty Diagnoses / Procedures Referred By Heavenly t Referred To Contact Diagnoses Acute GI bleeding GI bleed/TACHYCARDIA ON DILT DRIP- ACC Procedures na Referral ID Status Reason Start Date Expiration Date Visits Re quested Visits Authorized [id number] 1 1 Encounter Details Date Type Department Care Team (Latest Contact Info) Description 08/28/2024 4:30 PM TRANSACTION MANAGER - 09/02/2024 1:31 PM TRANSACTION MANAGER Hospital Encounter [id number] [place] [address] Ping Lopez DO [address] [place] [address] Scott Brantley MD [address] [place], [place] [id number] Cayden Smiley MD [address] [place], [place] [id number] Catherine Solano MD [facility] [place] [address] Acute GI bleeding (Primary Dx); Colitis Discharge Disposition: Discharge to home or self care Social History Tobacco Use Types Packs/Day Years Used Date Smoking Tobacco: Former Cigarettes 0 04/03/1997 - 1978 Smokeless Tobacco: Never Tobacco Cessation:Counseling Given: No Alcohol Use Standard Drinks/Week Comments Yes 0 (1 standard drink = 0.6 oz pur e alcohol) [facility] Utilities Answer Date Recorded In the past 12 months has th e [employer], gas, oil, or water [employer] threatened to shut off services in your home? No 09/01/2024 Social Connection and Isolation Panel [NHANES] A nswer Date Recorded In a typical week, how many times do you talk on the phone with family, friends, or neighbors? Three times a week 09/01/20 How often do you get togethe r with friends or relatives? Twice a week 09/01/2024 Attends [employer] Services Not on file 09/01 Active Member [...] any time in the past 12 m [facility], were you homeless or living in a group home (including now)? No 09/01/2024 Personal Safety Answer Date Recorded Have you ever been in or are you currently in a harmful physical or emotional relationship or is someone making you feel afraid or unsafe? Denies 08/28/2024 Sex and Gender Information Value Date Recorded Sex Assigned at Not on file Legal Sex Male 3:52 AM TRANSACTION MANAGER Gender Identity Not on file Sexual Orientation Not on file documented as of this encounter Last Filed Vital Signs Vital Sign [place] Time Taken Comments Blood Pressure 112/64 09/02/2024 12:44 PM TRANSACTION MANAGER Pulse 105 09/02/2024 12:44 PM TRANSACTION MANAGER Temperature 36.9 ??C (98.5 ??F) 09/02/2024 1 2:44 PM TRANSACTION MANAGER Respiratory Rate 18 09/02/2024 12:4 4 PM TRANSACTION MANAGER Oxygen Saturation 98% 09/02/2024 12: 44 PM TRANSACTION MANAGER Inhaled Oxygen Concentration - - Weight 88.4 kg (194 lb 14.2 oz) 08/28/2024 4:30 PM TRANSACTION MANAGER Height 172.7 cm (5' 8 ) 08/28/2024 4:30 PM TRANSACTION MANAGER Body Mass Index 29.63 08/28/2024 4:30 PM TRANSACTION MANAGER documented in this encounter Discharge Summaries * Catherine Solano MD - 09/02/2024 12:01 PM CST Inpatient Discharge Summary Patient Name - Jones Sanabria Patient Age - 59 yrs Patient - [id number] [facility] - [id number] Document Creation Date: 09/02/2024 Admitting Provider, : Scott Brantley MD Discharge Provider, MD: Catherine Solano MD Primary Care Physician at Discharge: Fernie Fulton MD [phone] Admission Date: 08/28/2024 Discharge Date/time: 09/02/2024 Admission Location: [facility] LOS - LOS: 5 days DETAILS OF HOSPITAL STAY Hospital Problems/Diagnoses Principal Problem: Acute GI bleeding Active Problems: Hypercholesterolemia Colitis Reason for Hospitalization: GI bleed, colitis Hospital Course: 59-year-old male with history of hypertension, dyslipidemia, alcohol use disorder, Johnson's esophagitis transferred to [facility] from [facility] for GI evaluation. He presented to outside hospital for hematemesis and dark tarry stool since 3 days prior to admission. Underwent EGD on 08/29/2024, grade D esophagitis, Protonix 40 b.i.d. for 2 months recommended , no NSAIDs, avoid alcohol Noted to have tachycardia and orthostasis, hemoglobin is stable, no further active bleeding, bolused with IV fluids, CT scan of the abdomen and pelvis shows diffuse pancolitis, discussed with GI, colonoscopy today showed patchy inflammation and ascending colon and cecum, vancomycin started due to presence of pseudomembranes. Symptoms rapidly improved on PO vanc, stool now formed, feeling well andready for discharge. Discharge Details Physical Exam at Discharge: Discharge Condition: stable Pulse: 113 Resp: 20 BP: 127/71 Temp: 36.8 ??C Weight: 78288 g Pertinent Exam Findings at Discharge: alert, NAD, abd soft Discharge Disposition: Discharge to home or self care Code Status at Discharge: Full Code Active Issues & Recommended Plan for Follow-up: Complete Vanc course, f/u with PCP if recurrence of diarrhea, f/u with GI locally Allergies: Bee sting kit Discharge Medications: Your medication list START taking these medications Instructions Last Dose Given Next Dose Due vancomycin 125 mg capsule Commonly known as: VANCOCIN 125 mg, oral, Every 6 hours CHANGE how you take these medications Instructions Last Dose Given Next Dose Due pantoprazole DR 40 mg EC tablet Commonly known as: PROTONIX What changed: when to take this 40 mg, oral, 2 times daily CONTINUE taking these medications Instructions Last Dose Given Next Dose Due magnesium oxide 400 mg (241.3 mg elemental magnesium) tablet Commonly known as: MAG-OX 200 mg, oral, Daily meloxicam 7.5 mg tablet Commonly known as: MOBIC 7.5 mg, oral, Daily multivitamin with folic acid 400 mcg tablet 1 tablet, Daily rosuvastatin 40 mg tablet Commonly known as: CRESTOR 40 mg, oral, Daily tamsulosin 0.4 mg extended release capsule Commonly known as: FLOMAX 0.4 mg, oral, Daily tiZANidine 4 mg tablet Commonly known as: ZANAFLEX 4 mg, oral, Nightly PRN Where to Get Your Medications These medications were sent to [facility] [place], [place] - [address] [facility] [address] [facility] [id number] vancomycin 125 mg capsule Information about where to get these medications is not yet available Ask your nurse or doctor about these medications pantoprazole DR 40 mg EC tablet Time Spent in Discharge Process: I have spent 32 minutes on discharge planning activities. Time spent was on Coordination of care, Follow up , Counselling with patient/family, and discharge exam Test Results Pending at Discharge (If Blank, None Found): Pending Labs Order Current Status CRP (acute phase) In process Stool culture Stool Rectum Preliminary result Operative Procedures Performed (If Blank, None Found): Procedure(s): COLON BIOPSY Outpatient Follow-Up: Please schedule an appointment with the following provider(s): No follow-up provider specified. ANCILLARY INFORMATION Other Procedures & Diagnostic Tests: No results found. Recent Labs: Recent Labs Lab Units 09/02/24 0543 08/31/24 1159 08/31/24 0601 WBC K/cumm 8.5 9.3 12.1* HEMOGLOBIN g/dL 8.2* 9.7* 10.5* HEMATOCRIT % 24.9* 28.5* 31.2* PLATELETS K/cumm 228 165 149* Recent Labs Lab Units 09/02/24 0543 08/31/24 1159 08/31/24 0601 WBC K/cumm 8.5 9.3 12.1* HEMOGLOBIN g/dL 8.2* 9.7* 10.5* HEMATOCRIT % 24.9* 28.5* 31.2* PLATELETS K/cumm 228 165 149* NEUTROS PCT % 56.0 67.2 69.4 LYMPHS PCT % 16.0 10.5 10.7 MONOS PCT % 16.8 17.4 16.6 EOS PCT % 0.8 0.3 0.3 Recent Labs Lab Units 09/02/24 0543 09/01/24 0545 08/31/24 0601 SODIUM mmol/L 139 137 136 POTASSIUM PLASMA mmol/L 3.1* 3.2* 3.5 CHLORIDE mmol/L 104 100 100 CO2 mmol/L 23 24 25 BUN SERUM mg/dL 5* 7 10 CREATININE mg/dL 1.15 1.04 0.97 LVF-IBM-CGOUSKS mL/min/1.73 m2 72 82 89 GLUCOSE mg/dL 112 128 132 CALCIUM mg/dL 7.8* 8.0* 8.6 Recent Labs Lab Units 09/02/24 0543 09/01/24 0545 08/31/24 0601 SODIUM mmol/L 139 137 136 POTASSIUM PLASMA mmol/L 3.1* 3.2* 3.5 CHLORIDE mmol/L 104 100 100 CO2 mmol/L 23 24 25 ANIONGAP mmol/L 12 13 11 GLUCOSE mg/dL 112 128 132 BUN SERUM mg/dL 5* 7 10 CREATININE mg/dL 1.15 1.04 0.97 CALCIUM mg/dL 7.8* 8.0* 8.6 No lab exists for component: LABALBU Recent Labs Lab Units 09/02/24 0543 08/31/24 0601 08/29/24 0629 MAGNESIUM mg/dL 1.6 1.6 1.8 Lab Results Component Value Date GLUCOSE 112 09/02/2024 GLUCOSE 128 09/01/2024 GLUCOSE 132 08/31/2024 Implant: Implants No active implants to display in this view. General Precautions (If Blank, None Found): Isolation Status: Contact Nutritional Status and in-house recommendations: Dietary Orders (From admission, onward) Start Ordered 09/01/24 1424 Adult Diet Regular Diet effective now Question: ([facility]) Diet type Answer: Regular 09/01/24 1423 Anticoagulation Indication: INR: No results found for requested labs within last 30 days. Warfarin Administrations (last 168 hours) None Oxygen Status: O2 Therapy for the past 12 hrs: O2 Therapy 09/02/24 0900 None (Room air) 09/02/24 0439 None (Room air) 09/02/24 0029 None (Room air) Wound Care Instructions Active LDAs (If Blank, None Found): Peripheral IV 08/31/24 20 G Right Antecubital (Active) Placement Date/Time: 08/31/24 1208 Type: Angiocath Size (Gauge): 20 G Location Orientation: Right Location: Antecubital Site Prep: Chlorhexidine Insertion attempts: 1 Patient Tolerance: Tolerated well Patient Emergency Contact: Primary Emergency Contact: Kaci Perez, Immunization Status at Discharge Immunization History Administered Date(s) Administered COVID-19 mRNA (PFIZER) 0.3 mL (30 mcg) vaccine (12 years and up) 05/25/2023, 07/21/2024 Pfizer SARS-CoV-2 Monovalent Vaccination (12+ Yrs) PURPLE 12/30/2020, 01/21/2021 Pfizer Sars-Cov-2 Bivalent Vaccination (12+ YRS) 09/04/2022 Catherine Solano MD SACTION MANAGER documented in this encounter Discharge Instructions * Attachments The following attachments cannot be sent through Care Everywhere. * C. Diff (Clostridioides Difficile) Infection (Discharge Care) (Polish) documented in this encounter Medications at Time of Discharge magnesium oxide (MAG-OX) 400 mg (241.3 mg elemental magnesium) tabletIndications :hypomagnesemia Take 0.5 tablets (200 mg total) by mouth daily multivitamin with folic acid 400 mcg tablet Take 1 tablet by mouth daily pantoprazole DR (PROTONIX) 40 mg EC tablet Take 1 tablet (40 mg total) by mouth 2 (two) times a day 09/02/2024 rosuvastatin (CRESTOR) 40 mg tablet Take 1 tablet (40 mg total) by mouth daily tamsulosin (FLOMAX) 0.4 mg extended release capsule Take 1 capsule (0.4 mg total) by mouth daily tiZANidine (ZANAFLEX) 4 mg tablet Take 1 tablet (4 mg total) by mouth nightly as needed for muscle spasms vancomycin (VANCOCIN) 125 mg capsuleIndication s:Clostridioides difficile infection Take 1 capsule (125 mg total) by mouth every 6 (six) hours for 36 doses 36 capsule 09/02/2024 09/11/2024 documented as of this encounter Ordered Prescriptions Prescription Sig Dispense Quantity Refills Last Filled Start Date End Date pantoprazole DR (PROTONIX) 40 mg EC tablet Take 1 tablet (40 mg total) by mouth 2 (two) times a day 09/02/2024 vancomycin (VANCOCIN) 125 mg capsuleIndications :Clostridioides difficile infection Take 1 capsule (125 mg total) by mouth every 6 (six) hours for 36 doses 36 capsule 09/02/2024 5 documented in this encounter Discharge Disposition Disposition Code Departure Means Destination Comment s Discharge to home or self care documented in this encounter Progress Notes * Ai Melchor PA - 09/02/2024 11:23 AM CST Gastroenterology Progress Note CC:UGIB Interval history: Patient was seen sitting up in chair. He is feeling much better today. He is completing some work and was up overnight working as well. He had one formed BM today. No blood. No pain. Denies N/V. Tolerating diet. Cdiff toxin negative, GDH positive Stool culture NTD WBC WNL hgb overall stable when compared to labs form 08/30 with no transfusion needs since 08/29 Colonoscopy yesterday reviewed Bx with mild active colitis with acute inflammatory exudate ---- findings suggestive of infection/toxin in the appropriate clinical context Allergies Allergen Reactions Bee Sting Kit Vitals: 09/02/24 0900 BP: 127/71 Pulse: 120 Resp: 20 Temp: 36.8 ??C (98.3 ??F) SpO2: 98% Physical Exam Vitals reviewed. HENT: Head: Atraumatic. Mouth/Throat: Mouth: Mucous membranes are moist. Eyes: General: No scleral icterus. Cardiovascular: Rate and Rhythm: Tachycardia present. Pulmonary: Effort: Pulmonary effort is normal. Abdominal: General: Abdomen is flat. There is no distension. Palpations: Abdomen is soft. Tenderness: There is no abdominal tenderness. There is no guarding or rebound. Skin: Coloration: Skin is not jaundiced. Neurological: Mental Status: He is alert. Psychiatric: Mood and Affect: Mood normal. Behavior: Behavior normal. Labs/Imaging: Recent Labs Lab Units 09/02/24 0543 08/31/24 1159 08/31/24 0601 WBC K/cumm 8.5 9.3 12.1* HEMOGLOBIN g/dL 8.2* 9.7* 10.5* HEMATOCRIT % 24.9* 28.5* 31.2* PLATELETS K/cumm 228 165 149* Recent Labs Lab Units 09/02/24 0543 WBC K/cumm 8.5 HEMOGLOBIN g/dL 8.2* HEMATOCRIT % 24.9* PLATELETS K/cumm 228 NEUTROS PCT % 56.0 LYMPHS PCT % 16.0 MONOS PCT % 16.8 EOS PCT % 0.8 Recent Labs Lab Units 09/02/24 0543 09/01/24 0545 08/31/24 0601 SODIUM mmol/L 139 137 136 POTASSIUM PLASMA mmol/L 3.1* 3.2* 3.5 BUN SERUM mg/dL 5* 7 10 CREATININE mg/dL 1.15 1.04 0.97 CALCIUM mg/dL 7.8* 8.0* 8.6 @ US RUQ Result Date: 08/30/2024 1. Increased hepatic echogenicity consistent with hepatic steatosis. 2. Gallbladder containing stones and sludge without evidence of acute cholecystitis. Electronically signed by: Dean Pichardo M.D. Assessment & Plan: 1. Melena and hematemesis - EGD with grade D esophagitis, no active bleeding. Hgb down in comparison to 2 days prior however no transfusion needs since 08/29 and labs from 08/31 felt to be falsely elevated. Plan: Continue BID Protonix therapy. Avoid NSAIDs. Diet as tolerated. Repeat EGD in 3 months to assess healing. 2. Acute on chronic anemia - acute blood loss is clearly contributing. Plan: Trend hemoglobin and transfuse to maintain above 7. 3. Diarrhea, improved. Cdiff toxin negative, GDH positive, bx with active colitis, infectious/toxinpossible. Significant improvement on Vancomycin one formed BM today Plan: Continue Vancomycin to complete 10 day course Significant improvement in diarrhea post colonoscopy and initiation of Vancomycin. To complete 10 day course. Should diarrhea recur off Vancomycin repeat stool for cdiff recommended. He will need repeat labs with PCP in one weeks time to follow anemia. Ok for d.c from GI standpoint. Please call with questions. HELENE Benton Cosigned by Cristo Funes MD at 09/02/2024 11:33 AM TRANSACTION MANAGER SACTION MANAGER SACTION MANAGER * Cayden Smiley MD - 09/01/2024 9:03 AM CST Hospitalist Daily Progress 08/28/2024 Fernie Fulton MD Stepedith Sanabria 59 y.o. Reason for Hospitalization: GI bleed with hematochezia Melanotic stool Hospital Course / updating info since admission 59-year-old male with history of hypertension, dyslipidemia, alcohol use disorder, Johnson's esophagitis transferred to [facility] from [facility] for GI evaluation. He presented to outside hospital for hematemesis and dark tardy stool since 3 days prior to admission. Heart rate was 125 BUN 46 anion gap 18 glucose 170 ethanol level 156 and WBC 14.3 hemoglobin was 8.9. Also reported some chest discomfort over the weekend which attributed to vomiting and hiatal hernia. He had several episodes of hematemesis and dark stools and started feeling profoundly weak, had a syncopal episode after which his fiancee a week he called EMS. He also takes regular ibuprofen for low back pain which started when he had a kidney stone which has passed with improvement in his pain. He reports that he is recovering alcoholic although had a relapse prior to admission and drank a small amount of alcohol socially. Underwent EGD on 08/29/2024, grade D esophagitis, Protonix 40 b.i.d. for 2 months recommended , no NSAIDs, avoid alcohol Noted to have tachycardia and orthostasis, hemoglobin is stable, no further active bleeding, bolused with IV fluids, CT scan of the abdomen and pelvis shows diffuse pancolitis, discussed with GI, colonoscopy today showed patchy inflammation and ascending colon and cecum, vancomycin started due to presence of pseudomembranes SUBJECTIVE / HPI Having multiple loose stools No dizziness, chest pain or shortness of breath No further GI bleed Underwent colonoscopy today BP stable, tachycardic with sinus tachycardia on monitor CURRENT MEDICATIONS Current Facility-Administered Medications: acetaminophen (TYLENOL) tablet 650 mg, 650 mg, oral, Q4H PRN, Cristo Funes MD bisacodyl EC (DULCOLAX EC) tablet 10 mg, 10 mg, oral, Daily PRN OR bisacodyL (DULCOLAX) suppository 10 mg, 10 mg, rectal, Daily PRN, Cristo Funes MD Carrier Fluids for Secondary Infusion - 0.9% Sodium Chloride, 30 mL, intravenous, PRN, Cristo Funes MD diphenhydrAMINE (BENADRYL) tab/cap 25 mg, 25 mg, oral, Q4H PRN, Cayden Smiley MD, 25 mg at 08/31/24 2320 loperamide (IMODIUM) capsule 2 mg, 2 mg, oral, QID, Cayden Smiley MD, 2 mg at 08/31/24 1629 LORazepam (ATIVAN) tablet 1 mg, 1 mg, oral, Q4H PRN, 1 mg at 08/31/24 1634 OR LORazepam (ATIVAN) tablet 1 mg, 1 mg, oral, Q2H PRN OR LORazepam (ATIVAN) 1 mg in sodium chloride 0.9% (further dilution required) injection, 1 mg, intravenous, Q1H PRN OR LORazepam (ATIVAN) injection 1 mg, 1 mg, intramuscular, Q1H PRN OR LORazepam (ATIVAN) 2 mg in sodium chloride 0.9% (further dilution required) injection, 2 mg, intravenous, Q1H PRN OR LORazepam (ATIVAN) injection 2 mg, 2 mg, intramuscular, Q1H PRN, Cristo Funes MD morphine injection 2 mg, 2 mg, intravenous, Q4H PRN, Cristo Funes MD multivitamin with folic acid 400 mcg tablet 1 tablet, 1 tablet, oral, Daily, Cristo Funes MD, 1 tablet at 09/01/24 0847 ondansetron ODT (ZOFRAN-ODT) disintegrating tablet 4 mg, 4 mg, oral, Q6H PRN, 4 mg at 08/30/24 1724OR ondansetron (ZOFRAN) injection 4 mg, 4 mg, intravenous, Q6H PRN, Cristo Funes MD pantoprazole (PROTONIX) 40 mg in sodium chloride 0.9% 10 mL IV Syringe, 40 mg, intravenous, Q12H YASH, Cristo Funes MD, 40 mg at 09/01/24 0847 polyethylene glycol (MIRALAX) packet 17 g, 17 g, oral, Daily PRN, Cristo Funes MD ramelteon (ROZEREM) tablet 8 mg, 8 mg, oral, Nightly PRN, Cristo Funes MD, 8 mg at 08/29/240 rosuvastatin (CRESTOR) tablet 40 mg, 40 mg, oral, Daily, Cristo Funes MD, 40 mg at 09/01/24 0847 sodium chloride 0.9% flush 0.5-20 mL, 0.5-20 mL, intra-catheter, Q8H YASH (ALT), Cristo Funes MD, 10 mL at 09/01/24 0850 sodium chloride 0.9% flush 0.5-20 mL, 0.5-20 mL, intra-catheter, PRN, Cristo Funes MD sodium chloride 0.9% infusion, 100 mL/hr, intravenous, Continuous, Cayden Smiley MD, Last Rate: 100 mL/hr at 09/01/24 0612, 100 mL/hr at 09/01/24 0612 tamsulosin (FLOMAX) extended release capsule 0.4 mg, 0.4 mg, oral, Daily, Cristo Funes MD, 0.4 mg at 09/01/24 0847 tiZANidine (ZANAFLEX) tablet 4 mg, 4 mg, oral, Nightly PRN, Cristo Funes MD, 4 mg at110/30/230 OBJECTIVE BP 110/78 (BP Location: Right arm, Patient Position: Sitting) Pulse (!) 130 Temp 37.2 ??C (98.9??F) (Oral) Resp 18 Ht 172.7 cm (5' 8 ) Wt 88.4 kg (194 lb 14.2 oz) SpO2 98% BMI 29.63 kg/m?? No intake/output data recorded. No intake/output data recorded. Physical Exam: General appearance: Patient is awake, alert and oriented x 3, cooperative. Neck supple and free of adenopathy, or masses. No thyromegaly. Head, Eyes,Ears, throat are normal. Lungs are clear to auscultation. Heart sounds are normal, no murmurs, clicks, gallops or rubs. Tachycardia Abdomen is soft, no masses or organomegaly. No distention, mild tenderness lower abdomen Extremities are normal. Peripheral pulses are normal. Musculoskeletal : no joint swelling or tenderness,no limitation of movement. PHOTOGRAPH DEVELOPER: A and O x 3, speech is normal, no focal neurological findings. Skin is normal without suspicious lesions noted. Genitourinary- NAD Lab/Radiology/Diagnostic Review: Laboratory review: I have personally reviewed Recent Labs Lab Units 08/31/24 1159 WBC K/cumm 9.3 HEMOGLOBIN g/dL 9.7* HEMATOCRIT % 28.5* PLATELETS K/cumm 165 Recent Labs Lab Units 09/01/24 0545 SODIUM mmol/L 137 POTASSIUM PLASMA mmol/L 3.2* CHLORIDE mmol/L 100 CO2 mmol/L 24 ANIONGAP mmol/L 13 BUN SERUM mg/dL 7 CREATININE mg/dL 1.04 GLUCOSE mg/dL 128 CALCIUM mg/dL 8.0* Principal Problem: Acute GI bleeding Active Problems: Hypercholesterolemia Colitis ASSESSMENT / PLAN : --acute GI bleed with melanotic stool, hematochezia POA Acute blood loss anemia Likely upper GI S/p EGD 08/29/2024--LA grade D esophagitis with no active bleeding, 4 cm hiatal hernia On Protonix 40 b.i.d., avoid NSAID--was taking ibuprofen at home regularly EGD in 3 months to assess healing Repeat hemoglobin fairly stable, no further bleeding --acute colitis suspect C diff colitis Pseudomembranes on colonoscopy done today C diff toxin negative Empiric vancomycin pending biopsy Reports antibiotic treatment about a month ago --had kidney stone , treated with antibiotic for infection per patient --tachycardia, orthostatic hypotension Likely due to severe diarrhea and volume loss Continue IV fluids Monitor and supplement electrolytes --hypokalemia Potassium 3.2 today Supplemented potassium Recheck potassium and magnesium in a.m. --thrombocytopenia Secondary to alcoholic liver disease, cirrhosis Reports that he stopped drinking 2 years ago --elevated creatinine and BUN Hyponatremia Given IV fluids, improved renal function and electrolytes Additional Mag and potassium today to keep around 2 and 4 respectively --hypocalcemia Low ionized calcium IV calcium gluconate given, repeat calcium normal --dyslipidemia On rosuvastatin --history of alcohol abuse Reports recovering alcoholic, has not had any alcoholic drink in past 2 years History of alcohol withdrawal seizure in 2019 Continue to abstain from alcohol --tobacco dependence Stop cigarette smoking --BPH On Flomax These fluid and electrolyte abnormalities are being treated, evaluated or monitored: As above --DVT prophylaxis Subcu Lovenox Code Status: Full Code MDM High--close monitoring for hypotension, tachycardia from volume depletion IV fluids to continue continue monitor on tele Electrolyte monitoring and supplementation Disposition: Anticipate discharge in 2-3 days if diarrhea improves Follow biopsy results Vancomycin orally started today Discussed with Dr. Funes with GI I used a voice recognition software for dictation. This may alter words unintentionally SACTION MANAGER * Cayden Smiley MD - 08/31/2024 9:08 AM CST Hospitalist Daily Progress 08/28/2024 Fernie Fulton MD [place] R [place] 59 y.o. Reason for Hospitalization: GI bleed with hematochezia Melanotic stool Hospital Course / updating info since admission 59-year-old male with history of hypertension, dyslipidemia, alcohol use disorder, Johnson's esophagitis transferred to [facility] from [facility] for GI evaluation. He presented to outside hospital for hematemesis and dark tardy stool since 3 days prior to admission. Heart rate was 125 BUN 46 anion gap 18 glucose 170 ethanol level 156 and WBC 14.3 hemoglobin was 8.9. Also reported some chest discomfort over the weekend which attributed to vomiting and hiatal hernia. He had several episodes of hematemesis and dark stools and started feeling profoundly weak, had a syncopal episode after which his fiancee a week he called EMS. He also takes regular ibuprofen for low back pain which started when he had a kidney stone which has passed with improvement in his pain. He reports that he is recovering alcoholic although had a relapse prior to admission and drank a small amount of alcohol socially. Underwent EGD on 08/29/2024, grade D esophagitis, Protonix 40 b.i.d. for 2 months recommended , no NSAIDs, avoid alcohol Noted to have tachycardia and orthostasis, hemoglobin is stable, no further active bleeding, bolused with IV fluids, CT scan of the abdomen and pelvis shows diffuse pancolitis, discussed with GI, plan for colonoscopy tomorrow SUBJECTIVE / HPI No new complaints Feels weak and fatigued On exam tachycardia, orthostatic Denies any abdominal pain, nausea vomiting. Vital signs stable, afebrile CURRENT MEDICATIONS Current Facility-Administered Medications: acetaminophen (TYLENOL) tablet 650 mg, 650 mg, oral, Q4H PRN, Cristo Funes MD bisacodyl EC (DULCOLAX EC) tablet 10 mg, 10 mg, oral, Daily PRN OR bisacodyL (DULCOLAX) suppository 10 mg, 10 mg, rectal, Daily PRN, Cristo Funes MD Carrier Fluids for Secondary Infusion - 0.9% Sodium Chloride, 30 mL, intravenous, PRN, Cristo Funes MD loperamide (IMODIUM) capsule 2 mg, 2 mg, oral, QID PRN, Cayden Smiley MD, 2 mg at 08/30/24 1350 LORazepam (ATIVAN) tablet 1 mg, 1 mg, oral, Q4H PRN, 1 mg at 08/31/24 0803 OR LORazepam (ATIVAN) tablet 1 mg, 1 mg, oral, Q2H PRN OR LORazepam (ATIVAN) 1 mg in sodium chloride 0.9% (further dilution required) injection, 1 mg, intravenous, Q1H PRN OR LORazepam (ATIVAN) injection 1 mg, 1 mg, intramuscular, Q1H PRN OR LORazepam (ATIVAN) 2 mg in sodium chloride 0.9% (further dilution required) injection, 2 mg, intravenous, Q1H PRN OR LORazepam (ATIVAN) injection 2 mg, 2 mg, intramuscular, Q1H PRN, Cristo Funes MD morphine injection 2 mg, 2 mg, intravenous, Q4H PRN, Cristo Funes MD multivitamin with folic acid 400 mcg tablet 1 tablet, 1 tablet, oral, Daily, Cristo Funes MD, 1 tablet at 08/31/24 8038 ondansetron ODT (ZOFRAN-ODT) disintegrating tablet 4 mg, 4 mg, oral, Q6H PRN, 4 mg at 08/30/24 1724OR ondansetron (ZOFRAN) injection 4 mg, 4 mg, intravenous, Q6H PRN, Cristo Funes,MD pantoprazole (PROTONIX) 40 mg in sodium chloride 0.9% 10 mL IV Syringe, 40 mg, intravenous, Q12H YASH, Cristo Funes MD, 40 mg at 08/31/24 0758 polyethylene glycol (MIRALAX) packet 17 g, 17 g, oral, Daily PRN, Cristo Funes MD potassium chloride 40 mEq in sodium chloride 0.9% 500 mL IVPB, 40 mEq, intravenous, Once, Cayden Smiley MD, Last Rate: 130 mL/hr at 08/30/24 1724, Restarted at 08/30/241723 ramelteon (ROZEREM) tablet 8 mg, 8 mg, oral, Nightly PRN, Cristo Funes MD, 8 mg at 08/29/242109 rosuvastatin (CRESTOR) tablet 40 mg, 40 mg, oral, Daily, Cristo Funes MD, 40 mg at 08/31/24 0758 sodium chloride 0.9% flush 0.5-20 mL, 0.5-20 mL, intra-catheter, Q8H YASH (ALT), Cristo Funes MD, 10 mL at 08/31/24 0009 sodium chloride 0.9% flush 0.5-20 mL, 0.5-20 mL, intra-catheter, PRN, Cristo Funes MD tamsulosin (FLOMAX) extended release capsule 0.4 mg, 0.4 mg, oral, Daily, Cristo Funes MD, 0.4 mg at 08/31/24 0758 tiZANidine (ZANAFLEX) tablet 4 mg, 4 mg, oral, Nightly PRN, Cristo Funes MD, 4 mg at110/30/232109 OBJECTIVE BP 131/68 (BP Location: Left arm, Patient Position: Lying) Pulse 116 Temp 36.8 ??C (98.2 ??F) (Oral) Resp 18 Ht 172.7 cm (5' 8 ) Wt 88.4 kg (194 lb 14.2 oz) SpO2 98% BMI 29.63 kg/m?? I/O last 2 completed shifts: In: 240 [P.O.:240] Out: 400 [Urine:400] No intake/output data recorded. Physical Exam: General appearance: Patient is awake, alert and oriented x 3, cooperative. Neck supple and free of adenopathy, or masses. No thyromegaly. Head, Eyes,Ears, throat are normal. Lungs are clear to auscultation. Heart sounds are normal, no murmurs, clicks, gallops or rubs. Abdomen is soft, no tenderness, masses or organomegaly. No distention, bruising noted on abdomen Extremities are normal. Peripheral pulses are normal. Musculoskeletal : no joint swelling or tenderness,no limitation of movement. PHOTOGRAPH DEVELOPER: A and O x 3, speech is normal, no focal neurological findings. Skin is normal without suspicious lesions noted. Genitourinary- NAD Lab/Radiology/Diagnostic Review: Laboratory review: I have personally reviewed Recent Labs Lab Units 08/31/24 0601 WBC K/cumm 12.1* HEMOGLOBIN g/dL 10.5* HEMATOCRIT % 31.2* PLATELETS K/cumm 149* Recent Labs Lab Units 08/31/24 0601 SODIUM mmol/L 136 POTASSIUM PLASMA mmol/L 3.5 CHLORIDE mmol/L 100 CO2 mmol/L 25 ANIONGAP mmol/L 11 BUN SERUM mg/dL 10 CREATININE mg/dL 0.97 GLUCOSE mg/dL 132 CALCIUM mg/dL 8.6 Principal Problem: Acute GI bleeding Active Problems: Hypercholesterolemia ASSESSMENT / PLAN : --acute GI bleed with melanotic stool, hematochezia POA Acute blood loss anemia Likely upper GI S/p EGD 08/29/2024--LA grade D esophagitis with no active bleeding, 4 cm hiatal hernia Avoid NSAIDs Continue Protonix 40 mg b.i.d. Repeat EGD in 3 months to assess healing Continue diet as tolerated --diarrhea, reports history of colitis in the past Still having multiple loose stools with small volume Still dark in color, no bright blood per rectum Stool C diff was negative, stool culture pending Change to Imodium [address] abdomen and pelvis shows diffuse pancolitis, urine bladder wall thickening possible cystitis UA on admission was negative Bowel prep per GI for colonoscopy --tachycardia, orthostatic hypotension IV fluid bolus 500 mL Continue 100 mL an hour Monitor BP Labs appear concentrated today --hypokalemia Supplement potassium Magnesium 1.6 Supplement potassium and magnesium to keep around 4 and 2 respectively --thrombocytopenia Secondary to alcoholic liver disease, cirrhosis No active bleeding Continue to monitor --elevated creatinine and BUN Hyponatremia Given IV fluids, improved renal function and electrolytes Additional Mag and potassium today to keep around 2 and 4 respectively --hypocalcemia Low ionized calcium IV calcium gluconate given, repeat calcium normal --dyslipidemia On rosuvastatin --alcohol abuse Reports recovering alcoholic History of alcohol withdrawal seizure in 2019 Continue to abstain from alcohol --tobacco dependence Smoking cessation counseling --BPH On Flomax These fluid and electrolyte abnormalities are being treated, evaluated or monitored: As above --DVT prophylaxis Continue SCD No anticoagulation due to risk of bleeding Code Status: Full Code MDM High --orthostatic hypotension with multiple bowel movements today, given fluid bolus and IV fluidscontinued High risk for cardiac decompensation, GI bleed, infection Close monitoring on tele, needing further testing Disposition: Anticipate home at discharge was clinically better I used a voice recognition software for dictation. This may alter words unintentionally SACTION MANAGER SACTION MANAGER SACTION MANAGER * Ai Melchor PA - 08/31/2024 8:33 AM CST Gastroenterology Progress Note CC:UGIB Interval history: Patient was seen sitting up in bed. BM x 20 yesterday, dark BM x 6 today, again dark. Diffuse pains, sore. No N/V. Has been tolerating PO intake. EGD 08/29 Impression: - LA Grade D esophagitis with no bleeding. Biopsied. - 4 cm hiatal hernia. - Normal examined duodenum. Bx pending ? Accuracy of AM CBC plt 74-->149?? With hgb 7.8-->10.5 BUN 34-->22-->10 US with steatosis, no cirrhosis Allergies Allergen Reactions Bee Sting Kit Vitals: 08/31/24 0754 BP: 131/68 Pulse: 116 Resp: 18 Temp: 36.8 ??C (98.2 ??F) SpO2: 98% Physical Exam Vitals reviewed. HENT: Head: Atraumatic. Mouth/Throat: Mouth: Mucous membranes are moist. Eyes: General: No scleral icterus. Cardiovascular: Rate and Rhythm: Tachycardia present. Pulmonary: Effort: Pulmonary effort is normal. Abdominal: General: Abdomen is flat. Bowel sounds are normal. There is no distension. Palpations: Abdomen is soft. Tenderness: There is abdominal tenderness. There is no guarding or rebound. Comments: Bruising to upper abdomen appears increased today, denies injury Diffuse tenderness, no rebound or guarding Skin: Coloration: Skin is not jaundiced. Neurological: Mental Status: He is alert. Psychiatric: Mood and Affect: Mood normal. Behavior: Behavior normal. Labs/Imaging: Recent Labs Lab Units 08/31/24 0601 08/30/24 0523 08/29/24 1356 08/29/24 0629 WBC K/cumm 12.1* 8.4 -- 9.5 HEMOGLOBIN g/dL 10.5* 7.8* 8.3* 8.0* HEMATOCRIT % 31.2* 23.3* 24.5* 23.8* PLATELETS K/cumm 149* 74* -- 58* Recent Labs Lab Units 08/31/24 0601 WBC K/cumm 12.1* HEMOGLOBIN g/dL 10.5* HEMATOCRIT % 31.2* PLATELETS K/cumm 149* NEUTROS PCT % 69.4 LYMPHS PCT % 10.7 MONOS PCT % 16.6 EOS PCT % 0.3 Recent Labs Lab Units 08/31/24 0601 08/30/24 0523 08/29/24 0629 SODIUM mmol/L 136 134* 138 POTASSIUM PLASMA mmol/L 3.5 2.9* 3.4 BUN SERUM mg/dL 10 22 34* CREATININE mg/dL 0.97 1.03 1.37* CALCIUM mg/dL 8.6 7.5* 7.4* @ US RUQ Result Date: 08/30/2024 1. Increased hepatic echogenicity consistent with hepatic steatosis. 2. Gallbladder containing stones and sludge without evidence of acute cholecystitis. Electronically signed by: Dean Pichardo M.D. Assessment & Plan: 1. Melena and hematemesis - EGD with grade D esophagitis, no active bleeding. Hgb now stable. Reports ongoing dark stools. BUN now WNL Plan: Continue BID Protonix therapy. Avoid NSAIDs. Diet as tolerated. Repeat EGD in 3 months to assess healing. Follow bx results. 2. Acute on chronic anemia - acute blood loss is clearly contributing. Plan: Trend hemoglobin and transfuse to maintain above 7. 3. Diarrhea, ongoing, dark in color, cdiff negative. Up to 20 episodes yesterday, 6 thus far today. Plan: Check CRP, stool culture. Discussed possible need for colonoscopy, reports hx of colitis in past but was related to COVID. Diffuse pains, soreness today. Ongoing significant diarrhea. Morning CBC appears to be erroneous, will repeat CBC and obtain CT a/p to further evaluate. Discussed with Dr. Smiley, will follow. HELENE Benton Cosigned by Cristo Funes MD at 08/31/2024 1:23 PM TRANSACTION MANAGER SACTION MANAGER SACTION MANAGER * Ai Melchor PA - 08/30/2024 9:41 AM CST Gastroenterology Progress Note CC:UGIB Interval history: Patient was seen sitting up in bed. No new complaints. Tolerating diet. Denies N/V or abdominal pain. He states has continued to have black stool but this has slowed since onset. Reviewed results of EGD from yesterday. EGD Impression: - LA Grade D esophagitis with no bleeding. Biopsied. - 4 cm hiatal hernia. - Normal examined duodenum. Bx pending Hgb overall stable 8.0-->8.3-->7.8 BUN 34-->22 US with steatosis, no cirrhosis Allergies Allergen Reactions Bee Sting Kit Vitals: 08/30/24 0918 BP: 132/77 Pulse: 108 Resp: 18 Temp: 37.2 ??C (98.9 ??F) SpO2: 99% Physical Exam Vitals reviewed. HENT: Head: Atraumatic. Mouth/Throat: Mouth: Mucous membranes are moist. Eyes: General: No scleral icterus. Cardiovascular: Rate and Rhythm: Tachycardia present. Pulmonary: Effort: Pulmonary effort is normal. Abdominal: General: Abdomen is flat. Bowel sounds are normal. There is distension. Palpations: Abdomen is soft. Tenderness: There is no abdominal tenderness. Comments: Bruising to upper abdomen Skin: Coloration: Skin is not jaundiced. Neurological: Mental Status: He is alert. Psychiatric: Mood and Affect: Mood normal. Behavior: Behavior normal. Labs/Imaging: Recent Labs Lab Units 08/30/24 0523 08/29/24 1356 08/29/24 0629 WBC K/cumm 8.4 -- 9.5 HEMOGLOBIN g/dL 7.8* 8.3* 8.0* HEMATOCRIT % 23.3* 24.5* 23.8* PLATELETS K/cumm 74* -- 58* Recent Labs Lab Units 08/30/24 0523 WBC K/cumm 8.4 HEMOGLOBIN g/dL 7.8* HEMATOCRIT % 23.3* PLATELETS K/cumm 74* NEUTROS PCT % 74.3 LYMPHS PCT % 11.6 MONOS PCT % 12.4 EOS PCT % 0.4 Recent Labs Lab Units 08/30/24 0523 08/29/24 0629 SODIUM mmol/L 134* 138 POTASSIUM PLASMA mmol/L 2.9* 3.4 BUN SERUM mg/dL 22 34* CREATININE mg/dL 1.03 1.37* CALCIUM mg/dL 7.5* 7.4* @ US RUQ Result Date: 08/30/2024 1. Increased hepatic echogenicity consistent with hepatic steatosis. 2. Gallbladder containing stones and sludge without evidence of acute cholecystitis. Electronically signed by: Dean Pichardo M.D. Assessment & Plan: 1. Melena and hematemesis - EGD with grade D esophagitis, no active bleeding. Hgb now stable. Reports ongoing dark stools but less frequent. BUN now WNL Plan: Continue BID Protonix therapy. Avoid NSAIDs. Diet as tolerated. Repeat EGD in 3 months to assess healing. Follow bx results. 2. Acute on chronic anemia - acute blood loss is clearly contributing. Plan: Trend hemoglobin and transfuse to maintain above 7. Reports ongoing black stools though less. Hgb overall stable. BUN now normal. Suspect passage of old blood. Will monitor labs overnight. If stable tomorrow ok for d.c from GI standpoint. Will follow. HELENE Benton Cosigned by Cristo Funes MD at 08/30/2024 12:31 PM TRANSACTION MANAGER SACTION MANAGER SACTION MANAGER * Cayden Smiley MD - 08/30/2024 9:05 AM CST Hospitalist Daily Progress 08/28/2024 Fernie Fulton MD Stephen R Wigginton 59 y.o. Reason for Hospitalization: GI bleed with hematochezia Melanotic stool Hospital Course / updating info since admission 59-year-old male with history of hypertension, dyslipidemia, alcohol use disorder, Johnson's esophagitis transferred to [facility] from [facility] for GI evaluation. He presented to outside hospital for hematemesis and dark tardy stool since 3 days prior to admission. Heart rate was 125 BUN 46 anion gap 18 glucose 170 ethanol level 156 and WBC 14.3 hemoglobin was 8.9. Also reported some chest discomfort over the weekend which attributed to vomiting and hiatal hernia. He had several episodes of hematemesis and dark stools and started feeling profoundly weak, had a syncopal episode after which his fiancee a week he called EMS. He also takes regular ibuprofen for low back pain which started when he had a kidney stone which has passed with improvement in his pain. He reports that he is recovering alcoholic although had a relapse prior to admission and drank a small amount of alcohol socially. Underwent EGD on 08/29/2024, grade D esophagitis, Protonix 40 b.i.d. for 2 months recommended , no NSAIDs, avoid alcohol SUBJECTIVE / HPI Feels weak, still having dark bowel movements Denies any nausea vomiting abdominal pain, tolerating diet Vital signs stable, afebrile CURRENT MEDICATIONS Current Facility-Administered Medications: acetaminophen (TYLENOL) tablet 650 mg, 650 mg, oral, Q4H PRN, Cristo Funes MD bisacodyl EC (DULCOLAX EC) tablet 10 mg, 10 mg, oral, Daily PRN OR bisacodyL (DULCOLAX) suppository 10 mg, 10 mg, rectal, Daily PRN, Cristo Funes MD Carrier Fluids for Secondary Infusion - 0.9% Sodium Chloride, 30 mL, intravenous, PRN, Cristo Funes MD LORazepam (ATIVAN) tablet 1 mg, 1 mg, oral, Q4H PRN, 1 mg at 08/29/24 0853 OR LORazepam (ATIVAN) tablet 1 mg, 1 mg, oral, Q2H PRN OR LORazepam (ATIVAN) 1 mg in sodium chloride 0.9% (further dilution required) injection, 1 mg, intravenous, Q1H PRN OR LORazepam (ATIVAN) injection 1 mg, 1 mg, intramuscular, Q1H PRN OR LORazepam (ATIVAN) 2 mg in sodium chloride 0.9% (further dilution required) injection, 2 mg, intravenous, Q1H PRN OR LORazepam (ATIVAN) injection 2 mg, 2 mg, intramuscular, Q1H PRN, Cristo Funes MD morphine injection 2 mg, 2 mg, intravenous, Q4H PRN, Cristo Funes MD multivitamin with folic acid 400 mcg tablet 1 tablet, 1 tablet, oral, Daily, Cristo Funes MD, 1 tablet at 08/29/24 0840 ondansetron ODT (ZOFRAN-ODT) disintegrating tablet 4 mg, 4 mg, oral, Q6H PRN OR ondansetron (ZOFRAN) injection 4 mg, 4 mg, intravenous, Q6H PRN, Cristo Funes MD pantoprazole (PROTONIX) 40 mg in sodium chloride 0.9% 10 mL IV Syringe, 40 mg, intravenous, Q12H YASH, Cristo Funes MD, 40 mg at 08/29/242110 polyethylene glycol (MIRALAX) packet 17 g, 17 g, oral, Daily PRN, Cristo Funes MD ramelteon (ROZEREM) tablet 8 mg, 8 mg, oral, Nightly PRN, Cristo Funes MD, 8 mg at 08/29/242109 rosuvastatin (CRESTOR) tablet 40 mg, 40 mg, oral, Daily, Cristo Funes MD, 40 mg at 08/29/24 0840 sodium chloride 0.9% flush 0.5-20 mL, 0.5-20 mL, intra-catheter, Q8H YASH (ALT), Cristo Funes MD, 10 mL at 08/29/24 0840 sodium chloride 0.9% flush 0.5-20 mL, 0.5-20 mL, intra-catheter, PRN, Cristo Funes MD sodium chloride 0.9% infusion, 30 mL/hr, intravenous, Continuous, Cristo Funes MD tamsulosin (FLOMAX) extended release capsule 0.4 mg, 0.4 mg, oral, Daily, Cristo Funes MD, 0.4 mg at 08/29/24 0840 tiZANidine (ZANAFLEX) tablet 4 mg, 4 mg, oral, Nightly PRN, Cristo Funes MD, 4 mg at110/30/23 2110 OBJECTIVE BP 107/64 (BP Location: Left arm, Patient Position: Lying) Pulse 88 Temp 37.3 ??C (99.1 ??F) (Oral) Resp 18 Ht 172.7 cm (5' 8 ) Wt 88.4 kg (194 lb 14.2 oz) SpO2 94% BMI 29.63 kg/m?? I/O last 2 completed shifts: In: 940 [P.O.:940] Out: 200 [Urine:200] No intake/output data recorded. Physical Exam: General appearance: Patient is awake, alert and oriented x 3, cooperative. Neck supple and free of adenopathy, or masses. No thyromegaly. Head, Eyes,Ears, throat are normal. Lungs are clear to auscultation. Heart sounds are normal, no murmurs, clicks, gallops or rubs. Abdomen is soft, no tenderness, masses or organomegaly. No distention Extremities are normal. Peripheral pulses are normal. Musculoskeletal : no joint swelling or tenderness,no limitation of movement. PHOTOGRAPH DEVELOPER: A and O x 3, speech is normal, no focal neurological findings. Skin is normal without suspicious lesions noted. Genitourinary- NAD Lab/Radiology/Diagnostic Review: Laboratory review: I have personally reviewed Recent Labs Lab Units 12/28/24 0523 WBC K/cumm 8.4 HEMOGLOBIN g/dL 7.8* HEMATOCRIT % 23.3* PLATELETS K/cumm 74* Recent Labs Lab Units 08/30/24 0523 SODIUM mmol/L 134* POTASSIUM PLASMA mmol/L 2.9* CHLORIDE mmol/L 97 CO2 mmol/L 27 ANIONGAP mmol/L 10 BUN SERUM mg/dL 22 CREATININE mg/dL 1.03 GLUCOSE mg/dL 106 CALCIUM mg/dL 7.5* Principal Problem: Acute GI bleeding Active Problems: Hypercholesterolemia ASSESSMENT / PLAN : --acute GI bleed with melanotic stool, hematochezia POA Acute blood loss anemia Likely upper GI S/p EGD 08/29/2024--LA grade D esophagitis with no active bleeding, 4 cm hiatal hernia PPI 40 b.i.d. for 2 months No NSAIDs Monitor hemoglobin, transfuse if 7 or less --hypokalemia Supplement potassium Check magnesium --thrombocytopenia Suspect secondary to alcoholic liver disease --elevated creatinine and BUN Hyponatremia Likely prerenal status IV fluids, monitor renal function --hypocalcemia Low ionized calcium Calcium gluconate IV ordered --dyslipidemia On rosuvastatin --alcohol abuse Reports recovering alcoholic History of alcohol withdrawal seizure in 2019 Advised to avoid alcohol --tobacco dependence Smoking cessation counseling --BPH Continue Flomax These fluid and electrolyte abnormalities are being treated, evaluated or monitored: As above --DVT prophylaxis SCD, no anticoagulation due to recent GI bleed Code Status: Full Code MDM Moderate Disposition: Anticipate home at discharge tomorrow if clinically better Discussed with care team D/w following consultants--GI note reviewed I used a voice recognition software for dictation. This may alter words unintentionally SACTION MANAGER * Cayden Smiley MD - 08/29/2024 9:13 AM CST Hospitalist Daily Progress 08/28/2024 Fernie Fulton MD Stephen R Wigginton 59 y.o. Reason for Hospitalization: GI bleed with hematochezia Melanotic stool Hospital Course / updating info since admission 59-year-old male with history of hypertension, dyslipidemia, alcohol use disorder, Johnson's esophagitis transferred to [facility] from [facility] for GI evaluation. He presented to outside hospital for hematemesis and dark tardy stool since 3 days prior to admission. Heart rate was 125 BUN 46 anion gap 18 glucose 170 ethanol level 156 and WBC 14.3 hemoglobin was 8.9. Also reported some chest discomfort over the weekend which attributed to vomiting and hiatal hernia. He had several episodes of hematemesis and dark stools and started feeling profoundly weak, had a syncopal episode after which his fiancee a week he called EMS. He also takes regular ibuprofen for low back pain which started when he had a kidney stone which has passed with improvement in his pain. He reports that he is recovering alcoholic although had a relapse prior to admission and drank a small amount of alcohol socially. SUBJECTIVE / HPI Awake and alert, denies any chest pain or shortness of breath Denies any abdominal pain, nausea vomiting Just back from EGD and feels hungry Vital signs are stable, afebrile CURRENT MEDICATIONS Current Facility-Administered Medications: acetaminophen (TYLENOL) tablet 650 mg, 650 mg, oral, Q4H PRN, Scott Brantley MD bisacodyl EC (DULCOLAX EC) tablet 10 mg, 10 mg, oral, Daily PRN OR bisacodyL (DULCOLAX) suppository 10 mg, 10 mg, rectal, Daily PRN, Soctt Brantley MD Carrier Fluids for Secondary Infusion - 0.9% Sodium Chloride, 30 mL, intravenous, PRN, Scott Brantley MD LORazepam (ATIVAN) tablet 1 mg, 1 mg, oral, Q4H PRN, 1 mg at 08/29/24 0853 OR LORazepam (ATIVAN) tablet 1 mg, 1 mg, oral, Q2H PRN OR LORazepam (ATIVAN) 1 mg in sodium chloride 0.9% (further dilution required) injection, 1 mg, intravenous, Q1H PRN OR LORazepam (ATIVAN) injection 1 mg, 1 mg, intramuscular, Q1H PRN OR LORazepam (ATIVAN) 2 mg in sodium chloride 0.9% (further dilution required) injection, 2 mg, intravenous, Q1H PRN OR LORazepam (ATIVAN) injection 2 mg, 2 mg, intramuscular, Q1H PRN, Scott Brantley MD morphine injection 2 mg, 2 mg, intravenous, Q4H PRN, Kelby Gore MD, 2 mg at 08/29/24 0617 multivitamin with folic acid 400 mcg tablet 1 tablet, 1 tablet, oral, Daily, Roman Wells, LIFE CONSULTANT, 1 tablet at 08/29/24 0840 ondansetron ODT (ZOFRAN-ODT) disintegrating tablet 4 mg, 4 mg, oral, Q6H PRN OR ondansetron (ZOFRAN) injection 4 mg, 4 mg, intravenous, Q6H PRN, Scott Brantley MD pantoprazole (PROTONIX) 40 mg in sodium chloride 0.9% 10 mL IV Syringe, 40 mg, intravenous, Q12H YASH, Scott Brantley MD, 40 mg at 08/29/24 0840 polyethylene glycol (MIRALAX) packet 17 g, 17 g, oral, Daily PRN, Scott Brantley MD ramelteon (ROZEREM) tablet 8 mg, 8 mg, oral, Nightly PRN, Scott Brantley MD, 8 mg at 08/28/24 2116 rosuvastatin (CRESTOR) tablet 40 mg, 40 mg, oral, Daily, Roman Wells, LIFE CONSULTANT, 40 mg at 840 sodium chloride 0.9% flush 0.5-20 mL, 0.5-20 mL, intra-catheter, Q8H YASH (ALT), Scott Brantley MD, 10 mL at 08/29/24 0840 sodium chloride 0.9% flush 0.5-20 mL, 0.5-20 mL, intra-catheter, PRN, Scott Brantley MD sodium chloride 0.9% IVPB 0-250 mL, 0-250 mL, intravenous, Once, Kelby Gore MD tamsulosin (FLOMAX) extended release capsule 0.4 mg, 0.4 mg, oral, Daily, Roman Wells, LIFE CONSULTANT, 0.4 mg at 08/29/24 0840 tiZANidine (ZANAFLEX) tablet 4 mg, 4 mg, oral, Nightly PRN, Roman Wells, LIFE CONSULTANT, 4 mg at 08/28/24 2116 OBJECTIVE BP 96/55 (BP Location: Left arm, Patient Position: Lying) Pulse 93 Temp 37 ??C (98.6 ??F) (Axillary) Resp 18 Ht 172.7 cm (5' 8 ) Wt 88.4 kg (194 lb 14.2 oz) SpO2 95% BMI 29.63 kg/m?? No intake/output data recorded. No intake/output data recorded. Physical Exam: General appearance: Patient is awake, alert and oriented x 3, cooperative. Neck supple and free of adenopathy, or masses. No thyromegaly. Head, Eyes,Ears, throat are normal. Lungs are clear to auscultation. Heart sounds are normal, no murmurs, clicks, gallops or rubs. Abdomen is soft, no tenderness, masses or organomegaly. Extremities are normal. Peripheral pulses are normal. Musculoskeletal : no joint swelling or tenderness,no limitation of movement. PHOTOGRAPH DEVELOPER: A and O x 3, speech is normal, no focal neurological findings. Skin is normal without suspicious lesions noted. Genitourinary- NAD Lab/Radiology/Diagnostic Review: Laboratory review: I have personally reviewed Recent Labs Lab Units 08/29/24 0629 WBC K/cumm 9.5 HEMOGLOBIN g/dL 8.0* HEMATOCRIT % 23.8* PLATELETS K/cumm 58* Recent Labs Lab Units 08/29/24 0629 SODIUM mmol/L 138 POTASSIUM PLASMA mmol/L 3.4 CHLORIDE mmol/L 99 CO2 mmol/L 28 ANIONGAP mmol/L 11 BUN SERUM mg/dL 34* CREATININE mg/dL 1.37* GLUCOSE mg/dL 141 CALCIUM mg/dL 7.4* Principal Problem: Acute GI bleeding Active Problems: Hypercholesterolemia ASSESSMENT / PLAN : --acute GI bleed with melanotic stool, hematochezia Likely upper GI Continue PPI 40 b.i.d. for 2 months per GI recommendation Discontinue NSAID Monitor hemoglobin and hematocrit and transfuse for hemoglobin 7 or lower Hemoglobin 8 today S/p EGD 08/29/2024--LA grade D esophagitis with no active bleeding, 4 cm hiatal hernia Discussed with Dr. Funes --elevated creatinine and BUN Likely prerenal status IV fluids to continue --hypocalcemia Check ionized calcium level and supplement if low --dyslipidemia On rosuvastatin --alcohol abuse Reports recovering alcoholic History of alcohol withdrawal seizure in 2019 --tobacco dependence Smoking cessation counseling --BPH Continue Flomax These fluid and electrolyte abnormalities are being treated, evaluated or monitored: As above --DVT prophylaxis SCD No anticoagulation due to GI bleed Code Status: Full Code MDM Moderate Monitor for any recurrent bleeding Disposition: Discussed with patient's and patient at bedside Discharge home once clinically stable and cleared by GI Recheck labs in a.m. Discussed with care team D/w following consultants--Dr. Funes I used a voice recognition software for dictation. This may alter words unintentionally SACTION MANAGER * Eula Welsh RN - 08/29/2024 7:54 AM CST Pls. Note patient pretransfusion VS taken at 0306. This RN started her blood transfusion (1) unit PRBC at 0345. First 15 minutes at 125ml/hr. After 15 minutes no reaction noted. VS taken at 0400, rate increased to 250ml/hr. Post transfusion VS taken, no s/s of transfusion reaction. Due to the scanner not working properly,and issues with entering info manually. Blood product was not infused right away, but was still within the times window per protocol. WIll cont to monitor. SACTION MANAGER documented in this encounter H&P Notes * Roman Wells NP - 08/28/2024 5:56 PM CST History and Physical Date of service: 08/28/24 Primary care provider: Fernie Fulton MD Chief Complaint: Hematochezia Melena Subjective HPI: Mr. Sanarbia is a 59-year-old male with past medical history notable for HTN, HLD, alcohol use disorder, Johnson's esophagus who was transferred to [facility] from [facility] for GI evaluation. Per paper chart review patient presented to the transferring hospital ER with concern for hematemesis and dark tarry stool onset 3 days ago. Workup there was notable for vital signs heart rate of up to 125. Labs are notable for anion gap 18, BUN 46, glucose 170, ethanol 156, WBC 14.3, hemoglobin 8.9. Patient reports he has been having hematemesis For a while but I did not tell anyone. He states he was having some chest discomfort over the weekend which he attributes to vomiting and hiatal hernia. His fiancee Yancy who was at bedside reported on Sunday night patient had hematemesis and dark stools. They both state yesterday he had several episodes of hematemesis and dark stools and Yancy states patient was throwing up large amounts of blood. Patient reports he went to the bathroom and felt profoundly weak and had a syncopal episode and Tasha called EMS. He reports decreased appetite for the past several days. Patient reports he regularly takes ibuprofen. Currently, patient denies chest pain or shortness of breath. He also denied fevers or chills. Patient reports right lower back pain that has been ongoing for the past 4 weeks which he states started when he had a kidney stone that has since passed and there is some improvement. Patient denies use of tobacco but reports he is a recovering alcoholic although he had a relapse yesterday and drank a small amount of alcohol socially. Patient reports Tasha would be notified in case of an emergency. Past Medical History: Diagnosis Date Alcohol use Johnson's esophagus HLD (hyperlipidemia) HTN (hypertension) History reviewed. No pertinent surgical history. Medications Prior to Admission Medication Sig Dispense Refill Last Dose/Taking multivitamin with folic acid 400 mcg tablet Take 1 tablet by mouth daily 08/28/2024 magnesium oxide (MAG-OX) 400 mg (241.3 mg elemental magnesium) tablet Take 0.5 tablets (200 mg total) by mouth daily Unknown meloxicam (MOBIC) 7.5 mg tablet Take 1 tablet (7.5 mg total) by mouth daily Unknown pantoprazole DR (PROTONIX) 40 mg EC tablet Take 1 tablet (40 mg total) by mouth 3 (three) times a day Unknown rosuvastatin (CRESTOR) 40 mg tablet Take 1 tablet (40 mg total) by mouth daily Unknown tamsulosin (FLOMAX) 0.4 mg extended release capsule Take 1 capsule (0.4 mg total) by mouth daily Unknown tiZANidine (ZANAFLEX) 4 mg tablet Take 1 tablet (4 mg total) by mouth nightly as needed for muscle spasms Unknown Allergies Allergen Reactions Bee Sting Kit Social History Tobacco Use Smoking status: None Smokeless tobacco: None Substance and Sexual Activity Drug use: Yes Types: Alcohol Sexual activity: None Alcohol Use: Not on file Family History Problem Relation Age of Onset Other Father Unknown; Other Mother Unknown; Other Brother Alive and well; Review of Systems: (unless specified above) 1. Constitutional Denies: weight loss, weight gain, fever, chills, night sweats, fatigue 2. Eyes Denies: change in vision, double vision, eye pain, eye discharge, icterus 3. ENT Denies: change in hearing, ear pain, ear discharge, nose bleed, nasal congestion, sore throat 4. Respiratory Denies: SOB, wheezing, cough, sputum, hemoptysis 5. CV Denies: chest pain, palpitations, edema, dyspnea + syncope 6. GI Denies: abdominal pain, change in bowel habits, diarrhea, constipation, BRBPR +decreased appetite, +nausea, +vomiting, + melena 7. Denies: dysuria, frequency, hematuria, nocturia, urgency 8. Metabolic Denies: cold intolerance, heat intolerance, polyphagia, polydipsia 9. Neurologic Denies: headache, dizziness, seizure, change in mental status, focal weakness, focal numbness 10. Musculoskeletal Denies: myalgia, joint pain, joint redness, joint swelling, extremity pain 11. Skin Denies: rash or edema Objective Vitals: Vitals: 08/28/24 1630 BP: 124/82 Pulse: 111 Resp: 16 Temp: 37.1 ??C (98.8 ??F) SpO2: 100% 24hr Min/Max: Temp Min: 37.1 ??C (98.8 ??F) Max: 37.1 ??C (98.8 ??F) Pulse Min: 111 Max: 111 BP Min: 124/82 Max: 124/82 Resp Min: 16 Max: 16 SpO2 Min: 100 % Max: 100 % Most Recent : Vitals: 08/28/24 1630 BP: 124/82 Pulse: 111 Resp: 16 Temp: 37.1 ??C (98.8 ??F) SpO2: 100% No intake/output data recorded. No intake/output data recorded. Physical exam: General appearance: NAD, conversant Eyes: EOMI, PERRLA, sclera non icteric HENT: Atraumatic; oropharynx clear with moist mucous membranes and no mucosal ulcerations; normal hard and soft palate Neck: supple, trachea midline Lungs: Clear to auscultation bilaterally, normal respiratory effort Heart: RRR, no murmurs Abd: NABS, NTND Lower Ext: No peripheral edema or extremity LAD Neuro: No new gross deficits appreciated Musculoskeletal: no gross joint erythema, edema, tenderness Skin: Normal temperature, turgor and texture, no rashes Psych: Appropriate affect, alert and oriented to person, place and time Vital signs and nursing notes reviewed Lab/Radiology/Diagnostic Review: Imaging personally reviewed: No orders to display Cardiac studies personally reviewed: Assessment/Plan These fluid and electrolyte abnormalities are being treated, evaluated or monitored: No fluid or electrolyte disorders Principal Problem: Acute GI bleeding Active Problems: Hypercholesterolemia Plan Acute GI bleeding -suspect upper GI bleed -hgb at OSH 8.9, get stat h&h, transfuse for hgb 7 or below, discussed with pt and his fiancee and they agreed to blood transfusion -pantoprazole IV 40 mg bid -hold home mobic -IVF -CLD, NPO after midnight -apprec GI recs Hypercholesterolemia -cont home rosuvastatin Code status: Full Code Goals for discharge / anticipated LOS: >2 midnights Medical complexity / risk: High Roman Wells NP 08/28/2024 7:08 PM Portions of the record may have been created with voice recognition software. Occasional wrong-wordor '[id number]' substitutions may have occurred due to the inherent limitations of voice recognition software. Please read the chart carefully and recognize, using context, where substitutions haveoccurred. Cosigned by Scott Brantley MD at 08/29/2024 12:53 AM TRANSACTION MANAGER SACTION MANAGER SACTION MANAGER Associated attestation - Scott Brantley MD - 08/29/2024 12:53 AM TRANSACTION MANAGER I personally performed a substantive portion of this patient encounter in conjunction with Roman on 08/28/24 but I did not see patient. Agree with [facility] note with additions as below. Labs notable for hemoglobin 8.6 Assessment and plan: Suspect acute upper GIB Regular NSAID use PPI IV BID Stop NSAIDs Monitor H/H GI c/s placed for Dr. Funes per overnight protocol History of heavy alcohol use. Suspect alcohol use disorder 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 Reviewed records from the following unique sources (external institutions or providers from different services): [facility]. Independently interpreted labs which shows as above. Scott Brantley MD 8:31 PM 08/28/24 documented in this encounter Procedure Notes * Cristo Funes MD - 09/01/2024 10:52 AM CSTAssociated Order(s): COLONOSCOPY ENDOSCOPY LAB Patient Name: Jones Sanabria Procedure Date: 09/01/2024 10:52 AM Admit Type: Inpatient Room: [facility] 8 Date of : 1965 Instrument Name: [id number] Gender: Male Note Status: Finalized Procedure: Colonoscopy Indications: Diarrhea Providers: Cristo Funes M.D. Referring MD: Fernie Fulton M.D. Medicines: Propofol per Anesthesia Complications: No immediate complications. Estimated Blood Loss: Estimated blood loss: none. Procedure: Pre-Anesthesia Assessment: - After reviewing the risks and benefits, the patient was deemed in satisfactory condition to undergo the procedure. - The risks and benefits of the procedure and the sedation options and risks were discussed with the patient. All questions were answered and informed consent was obtained. The benefits, risks and alternatives of the procedure and sedation were discussed and informed consent was obtained. All questions were answered. Please refer to the signed informed consent document in the medical record. The scope was passed under direct vision. The Colonoscope was introduced through the anus and advanced to the the terminal ileum. The colonoscopy was performed without difficulty. The patient tolerated the procedure well. The quality of the bowel preparation was good. The bowel preparation used was Plenvu via extended prep with split dose instruction. Findings: The perianal and digital rectal examinations were normal. The terminal ileum appeared normal. A diffuse pseudomembrane was found in the rectum and in the sigmoid colon. Patchy mild inflammation characterized by erosions and erythema was found in the ascending colon and in the cecum. Biopsies were taken with a cold forceps for histology. The exam was otherwise without abnormality on direct and retroflexion views. Biopsies were taken with a cold forceps in the entire colon for histology. Impression: - The examined portion of the ileum was normal. - Pseudomembranous enterocolitis, more prominent in the left colon. - Patchy mild inflammation was found in the ascending colon and in the cecum secondary to colitis. Biopsied. - The examination was otherwise normal on direct and retroflexion views. - Biopsies were taken with a cold forceps for histology in the entire colon. Recommendation: - Await pathology results. - Given appearance of pseudomembranes in the left colon, will start oral vancomycin - Diet as tolerated - Repeat colonoscopy in [address] Cristo Funes Cristo Funes M.D. 09/01/2024 11:32:46 AM This document was signed electronically. Number of Addenda: 0 Note Initiated On: 09/01/2024 10:52 AM Scope In: Scope Out: SACTION MANAGER * Cristo Funes MD - 08/29/2024 9:54 AM CSTAssociated Order(s): EGD ENDOSCOPY LAB Patient Name: Jones Sanabria Procedure Date: 08/29/2024 9:54 AM Admit Type: Inpatient Room: [facility] Date of : 1965 Instrument Name: [id number] Gender: Male Note Status: Finalized Procedure: Upper GI endoscopy Indications: Hematemesis, Melena Providers: Cristo Funse M.D. Referring MD: Fernie Fulton M.D. Medicines: Propofol per Anesthesia Complications: No immediate complications. Estimated Blood Loss: Estimated blood loss: none. Procedure: Pre-Anesthesia Assessment: - After reviewing the risks and benefits, the patient was deemed in satisfactory condition to undergo the procedure. The benefits, risks, and alternatives to the procedure and sedation were discussed and informed consent was obtained. The scope was passed under direct vision. The Endoscope was introduced through the mouth, and advanced to the second part of duodenum. The upper GI endoscopy was accomplished without difficulty. The patient tolerated the procedure well. Findings: LA Grade D (one or more mucosal breaks involving at least 75% of esophageal circumference) esophagitis with no bleeding was found in the lower third of the esophagus. Biopsies were taken with a cold forceps for histology. The exam of the esophagus was otherwise normal. A 4 cm hiatal hernia was present. The exam of the stomach was otherwise normal. The examined duodenum was normal. Impression: - LA Grade D esophagitis with no bleeding. Biopsied. - 4 cm hiatal hernia. - Normal examined duodenum. Recommendation: - Await pathology results. - Use Protonix (pantoprazole) 40 mg PO BID for [address] Cristo Funes Cristo Funes M.D. 08/29/2024 10:23:40 AM This document was signed electronically. Number of Addenda: 0 Note Initiated On: 08/29/2024 9:54 AM Scope In: Scope Out: SACTION MANAGER documented in this encounter Consult Notes * Armando Munguia PA - 08/29/2024 9:13 AM CSTAssociated Order(s): IP CONSULT TO GASTROENTEROLOGY Gastroenterology Consult Reason for consult: Melena Referring doctor: Roman Platt NP PCP: Fernie Fulton MD ASSESSMENT/PLAN: 1. Melena and hematemesis - ongoing for several days. Concerning for upper GI bleeding source in the setting alcohol and NSAID use. Formally very heavy alcohol use, apparently she stopped for the last 2 years, now reportedly ???social?? drinking again. BUN/CR ratio is not significantly elevated. INR WNL. PLT low at 58. Received octreotide at outside hospital. Last colonoscopy reportedly within the last 2 years with a 10 year recall. Differential includes PUD, AVM, variceal bleeding, malignancy. Distal small bowel or lower GI source is unlikely. Plan: EGD today. Right upper quadrant ultrasound after EGD. Continue pantoprazole 40 mg IV b.i.d.. Avoid NSAIDs. 2. Acute on chronic anemia - acute blood loss is clearly contributing. Plan: Trend hemoglobin and transfuse to maintain above 7. HPI: Patient is a 59 y.o. male with a history of alcohol use disorder in remission recently, Johnson's esophagus hypertension. The patient and his state in recent days he has had bright red hematemesis as well as black tarry stools. He has no acute abdominal pain. He states he stands from alcohol for about the last 2.5 years until this holiday season when he ???drank socially ???. He had a fall or possibly syncopal episode in the bathroom at home so his called an ambulance. He takes NSAIDs routinely. He reports ibuprofen, 400-600 mg, several times per week. He also takes other NSAIDs at times. Denies smoke cigarettes. No family history of GI malignancy. Last colonoscopy was within the past 1-2 years and he was given a 10 year recall. He estimates lastEGD was in 2017 which identified Johnson's esophagus. HGB 8.0 after 1 unit PRBCs here. No recent outpatient labs. Uncertain how much blood he got outsidehospital. PLT 58 BUN/CR 34/1.37 (ratio 25) INR 1.1 at outside hospital on 08/27 No imaging Past Medical History: Diagnosis Date Alcohol use Johnson's esophagus HLD (hyperlipidemia) HTN (hypertension) Medications Prior to Admission Medication Sig Dispense Refill Last Dose/Taking multivitamin with folic acid 400 mcg tablet Take 1 tablet by mouth daily 08/28/2024 magnesium oxide (MAG-OX) 400 mg (241.3 mg elemental magnesium) tablet Take 0.5 tablets (200 mg total) by mouth daily Unknown meloxicam (MOBIC) 7.5 mg tablet Take 1 tablet (7.5 mg total) by mouth daily Unknown pantoprazole DR (PROTONIX) 40 mg EC tablet Take 1 tablet (40 mg total) by mouth 3 (three) times a day Unknown rosuvastatin (CRESTOR) 40 mg tablet Take 1 tablet (40 mg total) by mouth daily Unknown tamsulosin (FLOMAX) 0.4 mg extended release capsule Take 1 capsule (0.4 mg total) by mouth daily Unknown tiZANidine (ZANAFLEX) 4 mg tablet Take 1 tablet (4 mg total) by mouth nightly as needed for muscle spasms Unknown Allergies Allergen Reactions Bee Sting Kit Social History Tobacco Use Smoking status: Former Types: Cigarettes Start date: 04/03/1997 Quit date: 1979 Years since quittin.0 Smokeless tobacco: Never Substance and Sexual Activity Drug use: Yes Types: Alcohol Sexual activity: None Alcohol Use: Not on file History reviewed. No pertinent surgical history. Family History Problem Relation Age of Onset Other Father Unknown; Other Mother Unknown; Other Brother Alive and well; Review of Systems Constitutional: Positive for fatigue. Negative for chills and fever. HENT: Negative for trouble swallowing. Respiratory: Negative for shortness of breath. Cardiovascular: Negative for chest pain. Gastrointestinal: Positive for abdominal pain, blood in stool, nausea and vomiting. Negative for constipation and diarrhea. Genitourinary: Negative for flank pain. Skin: Negative for rash. Neurological: Positive for weakness. Psychiatric/Behavioral: Negative for confusion. Most Recent : Vitals: 08/29/24 0755 BP: 96/55 Pulse: 93 Resp: 18 Temp: 37 ??C (98.6 ??F) SpO2: 95% Physical Exam Vitals reviewed. Constitutional: General: He is not in acute distress. HENT: Head: Normocephalic. Eyes: Extraocular Movements: Extraocular movements intact. Cardiovascular: Rate and Rhythm: Normal rate. Pulmonary: Effort: Pulmonary effort is normal. Abdominal: General: Abdomen is flat. Bowel sounds are normal. There is no distension. Palpations: Abdomen is soft. Tenderness: There is no guarding or rebound. Comments: Mild abdominal tenderness without guarding across upper abdomen Skin: General: Skin is warm and dry. Neurological: Mental Status: He is alert and oriented to person, place, and time. Comments: No asterixis Psychiatric: Mood and Affect: Mood normal. Lab/Radiology/Diagnostic Review: Recent Labs Lab Units 08/29/24 0629 08/29/24 0051 08/28/24 1916 WBC K/cumm 9.5 -- -- HEMOGLOBIN g/dL 8.0* 7.3* 8.6* HEMATOCRIT % 23.8* 22.7* 26.0* PLATELETS K/cumm 58* -- -- Recent Labs Lab Units 08/29/24 0629 SODIUM mmol/L 138 POTASSIUM PLASMA mmol/L 3.4 CHLORIDE mmol/L 99 CO2 mmol/L 28 ANIONGAP mmol/L 11 GLUCOSE mg/dL 141 BUN SERUM mg/dL 34* CREATININE mg/dL 1.37* CALCIUM mg/dL 7.4* HELENE Quintero Cosigned by Cristo Funes MD at 08/29/2024 10:04 AM TRANSACTION MANAGER SACTION MANAGER SACTION MANAGER documented in this encounter Nursing Notes * Nisahnt Monroe - 09/01/2024 12:41 PM CST Patient resting in bed comfortably with call light in reach. Patient to stay in GI lab until floor is able to find private patient room d/t new isolation precautions in pace. Will await for floor RN to call and notify that new patient room is ready. SACTION MANAGER documented in this encounter Miscellaneous Notes * Plan of Care - Kayla Partida RN - 09/02/2024 1:31 PM CST Goals: Clinical Goals for the Shift: Colonoscopy today, rest, vss, high heart rate Fdc Patient Centered Goal for Treatment: Pt to discharge to home with fiance. Summary: Given discharge instructions with verbalized understanding. IV and tele discontinued. Tookhome all belongings.Fiance here to take him home.[facility] and given to patient. Escorted downstairs per wheelchair. SACTION MANAGER * Plan of Care - Maddison Capellan RN - 09/02/2024 6:54 AM TRANSACTION MANAGER Goals: Clinical Goals for the Shift: VSS, monitor tele, bowel movements, and maintain patient safety and comfort while maintaining contact precautions. Cafeteria Aide Patient Centered Goal for Treatment: Pt to discharge to home with fiance. Summary: Pt HR was high 140's overnight, addressed with fluid bolus. All pt needs met, pt remains safe and free from falls. Educated on the importance of contact precautions. SACTION MANAGER * Plan of Care - Faith Diallo RN - 09/01/2024 6:38 PM CST Goals: Clinical Goals for the Shift: Colonoscopy today, rest, vss, high heart rate Fdc Patient Centered Goal for Treatment: Pt to discharge to home with fiance. Summary: Pt on IVF. IV potassium replaced. Colonoscopy revealed possible c.diff. PO vanc started. HR high. Pt having several loose BM's before and after colonoscopy. BSC at bedside Fiance at bedside. SACTION MANAGER * Initial Assessments - Marleni Guillermo LCSW - 09/01/2024 4:01 PM TRANSACTION MANAGER CM Initial Assessment Interview Note Information Obtained From: Patient (09/01/24 7875) Admission Source: ED, transfer from [facility] Impression: Pt 59 year old male transferred from [facility] for GI evaluation. Pt presented to outside hospital for hematemesis and dark tardy stool. SW met with patient at bedside and introduced role of social work and dc planning. Pt updated face sheet demographic (address and contact). Pt reported he lives at home with zee Yancy Nolen, . He stated he was independent with adl's, IADLs, and driving. 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 No active in home health or dme needs. Pt stated heanticipate dc home with no needs. His fiance will transport. Pt denies need for ETOH resources. Pt stated he sober for almost 3 years and denies need for resources. Pt stated I have plenty of resources . Pt plans to dc home. No SDOH identified at this time. Plan Includes: GI consult. Colonoscopy Primary Source of Transportation: Does the patient need discharge transport arranged?: No (09/01/24 1811) Health Insurance Coverage: Yes Prescription Coverage: Yes Pharmacy: No Pharmacies Listed Primary Care Provider: Fernie Fulton MD Prior to Admission: Functional Status: Independent with ADLs Primary Caregiver: Self Support System: Spouse/Significant Other, Children Home Care Services: No Outpatient Services: No Durable Medical Equipment: None Living Arrangements: Spouse/significant other (Stays with him at times) Type of Residence: Private residence (Town House) Steps in home?: Yes, Outside of home Number of steps inside: 6 steps Number of steps outside: 6 steps Medication management: Independent (08/28/24 1900) SDOH: Transportation: In the past 12 months, has lack of transportation kept you from medical appointments or from getting medications?: No In the past 12 months, has lack of transportation kept you from meetings, work, or from getting things needed for daily living?: No (09/01/24 0226) Financial Resource: How hard is it for you to pay for the very basics like food, housing, medical care, and heating?: Not very hard (09/01/24 5577) Housing: In the last 12 months, was there a time when you were not able to pay the mortgage or rent on time?: No At any time in the past 12 months, were you homeless or living in a group home (including now)?: No (09/01/24 1601) Utilities: No, (09/01/24 7996) Social Connections: In a typical week, how many times do you talk on the phone with family, friends, or neighbors?: Three times a week How often do you get together with friends or relatives?: Twice a week How often do you attend meetings of the clubs or organizations you belong to?: 1 to 4 times per year Are you , , , , never , or living with a partner?: Living with partner (09/01/24 1559) Food Insecurity: Within the past 12 months, you worried that your food would run out before you got the money to buymore.: Never true Within the past 12 months, the food you bought just didn't last and you didn't have money to get more.: Never true (09/01/24 1601) Alcohol Use: PHQ Screening Potential discharge needs include: Home Health: None (09/01/24 155) OP Services: Dialysis: No Behavioral Health Services: Behavioral Health Services: No (09/01/24 155) Anticipated Level of Care: Anticipated discharge level of care: Private residence Pt/Family agrees with Anticipated Level of Care: Yes (09/01/241555) Patient expects to be Discharged to: Private residence, (09/01/241555) Additional Information: SW will assist if needs arise. Patient's Identified Problem/Goal Problem: Ensure acute medical needs are met and that patient has a safe discharge plan. Goal: Secure a discharge plan that patient/family are agreeable with and ensure patient has continuum of care. Case management will follow for discharge planning and send referrals as needed. Goals include: To assure continuity of care, To maximize coping skills, To assure patient is in a safe environment and To assure access to community resources. Plan includes: 1. Collaboration with Patient, Provider, Direct Care Nurse, Human Resources Support Specialist, and other members of theHealth Care Team to assure needed interventions completed. 2. Return patient to optimal level of self-care post discharge. 3. Family Consumer Science Fcs Teacher will follow for Discharge Planning - interventions as needed 4. Anticipated level of care at discharge 5. Planned Discharge Disposition Marleni Guillermo LCSW SACTION MANAGER * Plan of Care - Ai Marroquin RN - 09/01/2024 3:53 AM CST Problem: Discharge Planning Goal: Understanding discharge needs will improve Outcome: Progressing Problem: Fall Risk Goal: Ability to state ways to decrease the risk of falls will improve Outcome: Progressing Goal: Will remain free from falls Outcome: Progressing Goal: Will remain free from injury from falls Outcome: Progressing Problem: Skin Integrity Impairment Risk Goal: Mobility will improve Outcome: Progressing Goal: Understanding of ways to prevent future skin breakdown will improve Outcome: Progressing Goal: Nutritional status will improve Outcome: Progressing Goal: Risk for impaired skin integrity will decrease Outcome: Progressing Problem: Lack of Knowledge Goal: Ability to develop a pain control plan will improve Outcome: Progressing Problem: Medication Goal: Satisfaction with pain management medication regimen will improve Outcome: Progressing Problem: Sensory Goal: Ability to identify factors that increase pain levels will improve while working to decrease the patient's pain levels Outcome: Progressing Problem: Coping Goal: Ability to cope will improve Outcome: Progressing Problem: Health Behavior Goal: Identification of resources available to assist in meeting health care needs will improve Outcome: Progressing Goals: Clinical Goals for the Shift: monitor vs/tele, no falls, clear liquids till midnight then npo, bowel prep, comfort/safety Cafeteria Aide Patient Centered Goal for Treatment: Pt to discharge to home with fiance. Nursing to Nursing Communication ARTI: Expected Discharge Date Expected Discharge Date Sep 01, 2024 DC Transport barriers: No PT/OT orders: No CM anticipated level of care: Mobility Barriers (i.e patient refusal, surgical restrictions, safety concerns, etc.): Lines/Drains: Peripheral IV 08/31/24 20 G Right Antecubital (Active) Last BM: Last BM Date: 08/31/24 Medical Barriers: IV medications Incomplete Orders/Imaging/Consults: colonoscopy Significant events over the last shift: vss, st 100-130's, 140's with activity, completed bowel prep, new rash on arms and torso, ns at 100, npo since midnight, no complaints of pain SACTION MANAGER * Plan of Care - Efren Bowling RN - 08/31/2024 3:36 PM CST Goals: Clinical Goals for the Shift: VSS. IVF. Fall prevention. Cafeteria Aide Patient Centered Goal for Treatment: Pt to discharge to home with fiance. Summary: Patient resting comfortably. Denies pain or SOB. IVF infusing. Still had multiple tiny diarrhea episodes. VSS. Continue to monitor. Keep patient safe from falls. SACTION MANAGER * Plan of Care - Ai Marroquin RN - 08/31/2024 4:08 AM CST Problem: Discharge Planning Goal: Understanding discharge needs will improve Outcome: Progressing Problem: Fall Risk Goal: Ability to state ways to decrease the risk of falls will improve Outcome: Progressing Goal: Will remain free from falls Outcome: Progressing Goal: Will remain free from injury from falls Outcome: Progressing Problem: Skin Integrity Impairment Risk Goal: Mobility will improve Outcome: Progressing Goal: Understanding of ways to prevent future skin breakdown will improve Outcome: Progressing Goal: Nutritional status will improve Outcome: Progressing Goal: Risk for impaired skin integrity will decrease Outcome: Progressing Problem: Lack of Knowledge Goal: Ability to develop a pain control plan will improve Outcome: Progressing Problem: Medication Goal: Satisfaction with pain management medication regimen will improve Outcome: Progressing Problem: Sensory Goal: Ability to identify factors that increase pain levels will improve while working to decrease the patient's pain levels Outcome: Progressing Problem: Coping Goal: Ability to cope will improve Outcome: Progressing Problem: Health Behavior Goal: Identification of resources available to assist in meeting health care needs will improve Outcome: Progressing Goals: Clinical Goals for the Shift: monitor vs/tele, promote rest/comfort/safety Cafeteria Aide Patient Centered Goal for Treatment: Pt to discharge to home with fiance. Nursing to Nursing Communication ARTI: Expected Discharge Date Expected Discharge Date Aug 30, 2024 DC Transport barriers: No PT/OT orders: No CM anticipated level of care: Mobility Barriers (i.e patient refusal, surgical restrictions, safety concerns, etc.): Lines/Drains: Last BM: Last BM Date: 08/30/24 Medical Barriers: IV medications Incomplete Orders/Imaging/Consults: Significant events over the last shift: vss, st 100-130's, room air, K+ gtt, no complaints of pain SACTION MANAGER * Plan of Care - Abby Jung RN - 08/30/2024 3:37 PM CST Goals: Clinical Goals for the Shift: monitor labs/tele/vs; NPO for EGD Cafeteria Aide Patient Centered Goal for Treatment: Pt to discharge to home with fiance. Summary: pt NSR/ST 110's, K and Calcium Gluconate replaced, VSS on RA, continuous BM imodium given,pt still fatigued, no falls, RUQ US pending, EGD done, all pt needs met at this time SACTION MANAGER * Plan of Care - Santino Gusman RN - 08/29/2024 5:17 PM CST Problem: Discharge Planning Goal: Understanding discharge needs will improve Outcome: Progressing Goals: Clinical Goals for the Shift: monitor labs/tele/vs; NPO for EGD Cafeteria Aide Patient Centered Goal for Treatment: Pt to discharge to home with fiance. Summary: NSR 80s. On RA. No complaints of pain. EGD completed. Recent Hgb 8.3. Normal saline at 100ml/hr. SACTION MANAGER * Plan of Care - Kassandra Lunog RN - 08/28/2024 8:22 PM CST Goals: Clinical Goals for the Shift: VSS, monitor heart rhythm. Keep pt free from injury. Fdc Patient Centered Goal for Treatment: Pt to discharge to home with fiance. Problem: Discharge Planning Goal: Understanding discharge needs will improve Outcome: Not Progressing Flowsheets (Taken 08/28/20242020) Understanding of discharge needs will improve: Discuss information regarding discharge instructions Problem: Fall Risk Goal: Ability to state ways to decrease the risk of falls will improve Outcome: Not Progressing Flowsheets (Taken 08/28/20242020) Ability to state ways to decrease the risk of falls will improve: Teach fall prevention measures Goal: Will remain free from falls Outcome: Not Progressing Flowsheets (Taken 08/28/20242020) Will remain free from falls: Implement fall prevention measures Goal: Will remain free from injury from falls Outcome: Not Progressing Flowsheets (Taken 08/28/20242020) Will remain free from injury from falls: Provide safe environment for conduction of activities of daily living in hospital environment Problem: Skin Integrity Impairment Risk Goal: Mobility will improve Outcome: Not Progressing Flowsheets (Taken 08/28/20242020) Mobility will improve: Encourage mobilization to extent of ability, assist with range of motion as needed Goal: Understanding of ways to prevent future skin breakdown will improve Outcome: Not Progressing Flowsheets (Taken 08/28/20242020) Understanding of ways to prevent future skin breakdown will improve: Discuss treatments to protect skin integrity Goal: Nutritional status will improve Outcome: Not Progressing Flowsheets (Taken 08/28/20242020) Nutritional status will improve: Assess nutritional status Goal: Risk for impaired skin integrity will decrease Outcome: Not Progressing Flowsheets (Taken 08/28/20242020) Risk for impaired skin integrity will decrease: Identify risk factors for impaired skin integrity and/or pressure injuries Summary: Pt heart rate 111. All other vital signs within normal limits. Pt is weak and unsteady on his feet. Put gait belt on pt and gave pt walker to get to the bathroom. He is wearing a diaper for stool incontinence. Stool is green and loose. I sent blood for CBC and Type and Screen. He requestedsomething to drink. LIFE CONSULTANT ordered clear liquid diet. Pt tolerated clears well. He needs redirecting when it comes to him getting up from the bed to the walker. Telemetry showed Sinus Tachycardia 111-122. Pt remains free from injury. No signs of distress noted. SACTION MANAGER documented in this encounter Plan of Treatment Pending Results Name Type Priority Associated Diagnoses Date /Time CRP (acute phase) Lab Routine 024 6:01 AM TRANSACTION MANAGER Scheduled Orders Name Type Priority Associated Diagnoses Orde r Schedule CRP (acute phase) Lab Routine Once fo r 1 Occurrences starting 08/31/2024 until 08/31/2024 documented as of this encounter Procedures Procedure Name Priority Date/Time Associated Diagnosis Comments EGFR Routine 09/02/2024 5:43 AM TRANSACTION MANAGER DIFFERENTIAL AUTO Routine 09/02/2024 5:43 AM TRANSACTION MANAGER CBC WITH AUTO DIFFERENTIAL Routine 09/02 5:43 AM TRANSACTION MANAGER MAGNESIUM Routine 09/02/2024 5:43 AM TRANSACTION MANAGER BASIC METABOLIC PANEL Routine 09/02/2024 5:43 AM TRANSACTION MANAGER SURGICAL PATHOLOGY Routine 09/01/2024 11:14 AM TRANSACTION MANAGER Colitis COLON BIOPSY 09/01/2024 10:57 AM TRANSACTION MANAGER Colitis COLONOSCOPY 09/01/2024 10:52 AM TRANSACTION MANAGER EGFR Routine 09/01/2024 5:45 AM TRANSACTION MANAGER BASIC METABOLIC PANEL Routine 09/01/2024 5:[address] ABDOMEN PELVIS W CONTRAST IP Routine 12:40 PM TRANSACTION MANAGER DIFFERENTIAL AUTO Routine 08/31/2024 11:59 AM TRANSACTION MANAGER CBC WITH AUTO DIFFERENTIAL Routine 08/31 11:59 AM TRANSACTION MANAGER STOOL CULTURE Routine 08/31/2024 11:59 AM TRANSACTION MANAGER ADD ON LAB TEST Add-On 08/31/2024 11:14 AM TRANSACTION MANAGER EGFR Routine 08/31/2024 6:01 AM TRANSACTION MANAGER DIFFERENTIAL AUTO Routine 08/31/2024 6:01 AM TRANSACTION MANAGER CBC WITH AUTO DIFFERENTIAL Routine 08/31 6:01 AM TRANSACTION MANAGER CRP (ACUTE PHASE) Routine 08/31/2024 6:01 AM TRANSACTION MANAGER MAGNESIUM Routine 08/31/2024 6:01 AM TRANSACTION MANAGER BASIC METABOLIC PANEL Routine 08/31/2024 6:01 AM TRANSACTION MANAGER CALCIUM, IONIZED Routine 08/30/2024 11:56 AM TRANSACTION MANAGER US RUQ IP Routine 08/30/2024 8:29 AM TRANSACTION MANAGER EGFR Routine 08/30/2024 5:23 AM TRANSACTION MANAGER DIFFERENTIAL AUTO Routine 08/30/2024 5:23 AM TRANSACTION MANAGER CBC WITH AUTO DIFFERENTIAL Routine 08/30 5:23 AM TRANSACTION MANAGER BASIC METABOLIC PANEL Routine 08/30/2024 5:23 AM TRANSACTION MANAGER C. DIFFICILE TESTING Routine 08/29/2024 11:07 PM TRANSACTION MANAGER HEMOGLOBIN AND HEMATOCRIT Timed 2023 1:56 PM TRANSACTION MANAGER SURGICAL PATHOLOGY Routine 08/29/2024 10:14 AM TRANSACTION MANAGER Acute GI bleeding ESOPHAGOGASTRODUODENOSCOPY BIOPSY 08/29/2024 10:04 AM TRANSACTION MANAGER Acute GI bleeding EGD 08/29/2024 9:54 AM TRANSACTION MANAGER EGFR Routine 08/29/2024 6:29 AM TRANSACTION MANAGER DIFFERENTIAL AUTO Routine 08/29/2024 6:29 AM TRANSACTION MANAGER CBC WITH AUTO DIFFERENTIAL Routine 08/29 6:29 AM TRANSACTION MANAGER MANUAL DIFFERENTIAL Routine 08/29/2024 6:29 AM TRANSACTION MANAGER MAGNESIUM Routine 08/29/2024 6:29 AM TRANSACTION MANAGER BASIC METABOLIC PANEL Routine 08/29/2024 6:29 AM TRANSACTION MANAGER TRANSFUSE RED BLOOD CELLS Timed 2023 3:22 AM TRANSACTION MANAGER PREPARE RBC STAT 08/29/2024 2:41 AM TRANSACTION MANAGER HEMOGLOBIN AND HEMATOCRIT Timed 2023 12:51 AM TRANSACTION MANAGER B CHECK SAMPLE STAT 08/28/2024 7:16 PM TRANSACTION MANAGER HEMOGLOBIN AND HEMATOCRIT STAT 2023 7:16 PM TRANSACTION MANAGER TYPE AND SCREEN STAT 08/28/2024 7:10 PM TRANSACTION MANAGER documented in this encounter Results * eGFR (09/02/2024 5:43 AM TRANSACTION MANAGER) eGFR 72 >=60 mL/min/1. 73 m2 Comment: [...] last reviewed 2021. Blood 09/02/2024 5:43 AM TRANSACTION MANAGER 09/02/2024 6:11 AM TRANSACTION MANAGER us Cristo Funes MD LAB BLOOD ORDERABLE S Final Result [facility] [address] Department of Laboratories [place], [place] [id number] * (ABNORMAL) Differential, auto (09/02/2024 5:43 AM TRANSACTION MANAGER) Monocyte abs 1.4(H) 0.2 - 0.8 K/cumm Eosinophil abs 0.1 0.0 - 0.5 K/cumm [facility] Neutrophil pct 56.0 % [facility] Comment: Interpretive Data Percent cell count reference ranges are not reported, since discordance with absolute values may lead to misinterpretation of CBC data. Current Interpretive Data was last revised on 2017. Lymphocyte pct 16.0 % [facility] Comment: Interpretive Data Percent cell count reference ranges are not reported, since discordance with absolute values may lead to misinterpretation of CBC data. Current Interpretive Data was last revised on 2017. Monocyte pct 16.8 % [facility] Comment: Interpretive Data Percent cell count reference ranges are not reported, since discordance with absolute values may lead to misinterpretation of CBC data. Current Interpretive Data was last revised on 2017. Eosinophil pct 0.8 % [facility] Comment: Interpretive Data Percent cell count reference ranges are not reported, since discordance with absolute values may lead to misinterpretation of CBC data. Current Interpretive Data was last revised on 2017. Blood 09/02/2024 5:43 AM TRANSACTION MANAGER 09/02/2024 6:11 AM TRANSACTION MANAGER Cristo Funes MD LAB BLOOD ORDERABLE S Final Result Performing Organization Address City/[facility] Co de Phone Number [facility] [address] [facility] [employer] [place] [address] * Magnesium (09/02/2024 5:43 AM TRANSACTION MANAGER) Pathologist [facility] Magnesium 1.6 1.4 - 2.5 mg/dL Blood 09/02/2024 5:43 AM TRANSACTION MANAGER 09/02/2024 6:11 AM TRANSACTION MANAGER Cristo Funes MD LAB BLOOD ORDERABLE S Final Result [facility] [address] Department [place] [employer] [place] [address] * (ABNORMAL) Basic metabolic panel (09/02/2024 5:43 AM TRANSACTION MANAGER) [facility] Sodium 139 135 - 145 mmol/L Potassium, pl 3.1(L) 3.3 - 4.9 mmol/L [facility] Chloride 104 97 - 110 mmol/L [facility] CO2 23 22 - 32 mmol/L [facility] Anion gap 12 2 - 15 mmol/L [facility] BUN 5(L) 6 - 25 mg/dL [facility] Creatinine 1.15 0.80 - 1.30 mg/dL [facility] Glucose 112 70 - 199 mg/dL [facility] Comment: Interpretive Data Fasting glucose >/= 126 [...] 2022. Calcium 7.8(L) 8.5 - 10.3 mg/dL [facility] Blood 09/02/2024 5:43 AM TRANSACTION MANAGER 09/02/2024 6:11 AM TRANSACTION MANAGER Cristo Funes MD LAB BLOOD ORDERABLE S Final Result [facility] [address] Department [place] [address] * (ABNORMAL) CBC with auto differential (09/02/2024 5:43 AM TRANSACTION MANAGER) [facility] WBC 8.5 3.8 - 9.9 K/cumm Hgb 8.2(L) 13.0 - 17.5 g/dL [facility] Hct 24.9(L) 38.9 - 50.3 % [facility] Plt 228 150 - 400 K/cumm [facility] MPV 9.3 9.1 - 12.3 fL [facility] RBC 2.60(L) 4.30 - 5.80 M/cumm [facility] MCV 95.8 81.3 - 96.4 fL [facility] MCH 31.5 27.1 - 33.3 pg [facility] MCHC 32.9 32.3 - 35.7 g/dL [facility] RDW CV 15.3(H) 11.1 - 14.9 % [facility] RDW SD 53.0(H) 35.7 - 48.1 fL [facility] NRBC abs 0.15(H) 0.00 - 0.01 K/cumm [facility] Blood 09/02/2024 5:43 AM TRANSACTION MANAGER 09/02/2024 6:11 AM TRANSACTION MANAGER Cristo Funes MD LAB BLOOD ORDERABLE S Final Result Performing Organization Address City/State/[facility] Co wa Phone Number [place] [address] Department [place] [address] * Surgical pathology (09/01/2024 11:14 AM TRANSACTION MANAGER) Tissue (Colon, Biopsy) 09/01/2024 11:14 AM TRANSACTION MANAGER Comment:For colitis Tissue (Colon, Biopsy) 09/01/2024 11:15 AM TRANSACTION MANAGER Comment:For colitis Narrative [facility] - 09/02/2024 8:16 AM TRANSACTION MANAGER [address] ??[address] Tele: ?? Dara Paz MD - Manager Of Revenue Note to Patients: This report may contain [...] REPORT Patient Name: ??JONES SANABRIA Address: ??[address] [place], [place] ??[address] Gender: ??M : ??1965 (Age: 59) Service: ??Cardiology Location: ??[id number], ?? Hospital #: ??[id number] Patient Type: ??[facility] Accession #: ? [id number] Taken: ? 09/01/2024 Received ? 09/01/2024 Reported: [...] DESCRIPTION: A. ??Received in formalin labeled JONES SANABRIA and right colon biopsy are multiple young tissue fragments, 2 x 0.2 x 0.2 cm in aggregate. ??The specimen is filtered and entirely submitted in A1. B. ??Received in formalin labeled JONES HERNANDEZINTON and left colon biopsy are multiple young tissue fragments, 1.5 x 0.2 x 0.2 cm in aggregate. ??The specimen is filtered and entirely submitted in B1. ?? jxi/09/01/2024 13:23 ? YAIR,JXI MICROSCOPIC DESCRIPTION: Sections of the right colon [...] architecture is maintained. Clerical Data Follows A; [id number] B; [id number] REPORT IMAGES AND/OR SCANNED DOCUMENTS ONLY VIEWABLE IN PDF FORMAT The immunohistochemical test(s) cited in this report, if any, was developed and its performance characteristics determined by [facility] Pathology Department. ??It has not been cleared or approved by the U.S. Food and Drug Administration. ??The FDA has determined that such clearance or approval is not necessary. ??This test is used for clinical purposes. ??It should not be regarded as investigational or for research. ??[facility] Laboratory is certified under the Clinical Laboratory [...] part or completely in the following laboratories: [facility], [facility] [place], [place] [address] [place] [address], [address] [facility], [place] [address]. Cristo Funes MD LAB PATHOLOGY ORDER HOLA Final Result [facility] Laboratory Receiving [address] [place] [phone] * Colonoscopy (09/01/2024 10:52 AM TRANSACTION MANAGER) Anatomical Region Laterality Modality Other Narrative Procedure Note Cristo Funes MD - 09/01/2024 10:52 AM CST ENDOSCOPY LAB Patient Name: Jones Sanabria Procedure Date: 09/01/2024 10:52AM Admit Type: Inpatient Room: [facility] Date of : 1965 Instrument Name: [id number] [...] Final Result * eGFR (09/01/2024 5:45 AM TRANSACTION MANAGER) eGFR 82 >=60 mL/min/1. 73 m2 Comment: [...] last reviewed 2021. Blood 09/01/2024 5:45 AM TRANSACTION MANAGER 09/01/2024 6:26 AM TRANSACTION MANAGER us Cayden Smiley MD LAB BLOOD ORDERABLES Final Res ult [facility] [address] Department [place] [address] * (ABNORMAL) Basic metabolic panel (09/01/2024 5:45 AM TRANSACTION MANAGER) Sodium 137 135 - 145 mmol/L Potassium, pl 3.2(L) 3.3 - 4.9 mmol/L [facility] Chloride 100 97 - 110 mmol/L [facility] CO2 24 22 - 32 mmol/L [facility] Anion gap 13 2 - 15 mmol/L [facility] BUN 7 6 - 25 mg/dL [facility] Creatinine 1.04 0.80 - 1.30 mg/dL [facility] Glucose 128 70 - 199 mg/dL [facility] Comment: Interpretive Data Fasting glucose >/= 126 [...] 2022. Calcium 8.0(L) 8.5 - 10.3 mg/dL [facility] Blood 09/01/2024 5:45 AM TRANSACTION MANAGER 09/01/2024 6:26 AM TRANSACTION MANAGER us Cayden Smiley MD LAB BLOOD ORDERABLES Final Res ult [facility] [address] Department [place] [address] * CT Abdomen Pelvis W Contrast (08/31/2024 12:40 PM TRANSACTION MANAGER) Anatomical Region Laterality Modality Body N/A Computed Tomogra phy 08/31/2024 4:39 PM TRANSACTION MANAGER Impressions 08/31/2024 4:39 PM TRANSACTION MANAGER 1. ??Diffuse pancolitis, likely infectious/inflammatory. 2. ??Circumferential urinary bladder wall thickening, which may represent reactive changes or superimposed cystitis. ??Mural thickening is exaggerated by degree of decompression. Electronically signed by: Dejan Chino D.O. Narrative 08/31/2024 4:39 PM TRANSACTION MANAGER EXAMINATION: CT ABDOMEN PELVIS W CONTRAST HISTORY: [...] degree of decompression. Electronically signed by: Dejan O'Isaiah, D.O. Cayden Smiley MD IMG CT PROCEDURES Final Result * (ABNORMAL) Differential, auto (08/31/2024 11:59 AM TRANSACTION MANAGER) Neutrophil abs 6.3 1.5 - 6.5 K/cumm Imm gran abs 0.4(H) 0.0 - 0.1 K/cumm [facility] Lymphocyte abs 1.0 0.8 - 3.3 K/cumm [facility] Monocyte abs 1.6(H) 0.2 - 0.8 K/cumm [facility] Eosinophil abs 0.0 0.0 - 0.5 K/cumm [facility] Basophil abs 0.0 0.0 - 0.1 K/cumm [facility] Neutrophil pct 67.2 % [facility] Comment: Interpretive Data Percent cell count reference ranges are not reported, since discordance with absolute values may lead to misinterpretation of CBC data. Current Interpretive Data was last revised on 2017. Imm gran pct 4.2 % [facility] Comment: Interpretive Data Percent cell count reference ranges are not reported, since discordance with absolute values may lead to misinterpretation of CBC data. Current Interpretive Data was last revised on 2017. Lymphocyte pct 10.5 % [facility] Comment: Interpretive Data Percent cell count reference ranges are not reported, since discordance with absolute values may lead to misinterpretation of CBC data. Current Interpretive Data was last revised on 2017. Monocyte pct 17.4 % [facility] Comment: Interpretive Data Percent cell count reference ranges are not reported, since discordance with absolute values may lead to misinterpretation of CBC data. Current Interpretive Data was last revised on 2017. Eosinophil pct 0.3 % [facility] Comment: Interpretive Data Percent cell count reference ranges are not reported, since discordance with absolute values may lead to misinterpretation of CBC data. Current Interpretive Data was last revised on 2017. Basophil pct 0.4 % [facility] Comment: Interpretive Data Percent cell count reference ranges are not reported, since discordance with absolute values may lead to misinterpretation of CBC data. Current Interpretive Data was last revised on 2017. Blood 08/31/2024 11:5 9 AM TRANSACTION MANAGER 08/31/2024 11:59 AM TRANSACTION MANAGER Cayden Smiley MD LAB BLOOD ORDERABLES Final Res ult Performing Organization Address [facility] Co de Phone Number [facility] [address] Department [place] [address] * Stool culture Stool Rectum (08/31/2024 11:59 AM TRANSACTION MANAGER) Direct Specimen Exam Shiga Toxin Testing: Negative for: Shigatoxin of enterohemorrhagic E.coli. Report Final Report: No Salmonella, Shigella, Aeromonas, Plesiomonas, Yersinia, Campylobacter, or E.coli O157:H7 isolated [facility] Stool (Rectum) 08/31/2024 11 :59 AM TRANSACTION MANAGER 08/31/2024 3:13 PM TRANSACTION MANAGER Narrative [facility] - 09/03/2024 2:00 PM TRANSACTION MANAGER This specimen is screened for the presence of Aeromonas, Campylobacter, E.coli-0157:H7, Plesiomonas, Salmonella, Shigella, Shiga Toxin producing E. coli, and Yersinia. Ai NARAYAN LAB MICROBIOLOGY - GENERAL OR DERABLES Final Result Performing Organization Address [facility] de Phone Number [facility] [address] Department [place] [address] * (ABNORMAL) CBC with auto differential (08/31/2024 11:59 AM TRANSACTION MANAGER) WBC 9.3 3.8 - 9.9 K/cumm Hgb 9.7(L) 13.0 - 17.5 g/dL [facility] Hct 28.5(L) 38.9 - 50.3 % [facility] Plt 165 150 - 400 K/cumm [facility] MPV 10.0 9.1 - 12.3 fL [facility] RBC 2.98(L) 4.30 - 5.80 M/cumm [facility] MCV 95.6 81.3 - 96.4 fL [facility] MCH 32.6 27.1 - 33.3 pg [facility] MCHC 34.0 32.3 - 35.7 g/dL [facility] RDW CV 15.0(H) 11.1 - 14.9 % [facility] RDW SD 51.8(H) 35.7 - 48.1 fL [facility] NRBC abs 0.09(H) 0.00 - 0.01 K/cumm [facility] Blood 08/31/2024 11:5 9 AM TRANSACTION MANAGER 08/31/2024 12:11 PM TRANSACTION MANAGER Cayden Smiley MD LAB BLOOD ORDERABLES Final Res ult Performing Organization Address [facility] Co de Phone Number [facility] [address] Department [place] [employer] [place] [address] * CRP - Add on lab test (08/31/2024 11:14 AM TRANSACTION MANAGER) Acceptable Yes Blood 08/31/2024 11:1 4 AM TRANSACTION MANAGER 08/31/2024 11:14 AM TRANSACTION MANAGER Narrative [facility] - 08/31/2024 11:14 AM TRANSACTION MANAGER Name of Test->CRP Ai NARAYAN LAB BLOOD ORDERABLES Final Re sult Performing Organization Address [facility] Co de Phone Number [facility] [address] Department [place] [address] * (ABNORMAL) CRP (acute phase) (08/31/2024 6:01 AM TRANSACTION MANAGER) CRP 85.5(H) <=10.0 mg/L Blood 08/31/2024 6:01 AM TRANSACTION MANAGER 08/31/2024 7:08 AM TRANSACTION MANAGER Cayden Smiley MD LAB BLOOD ORDERABLES Final Res ult Performing Organization Address [facility] Co de Phone Number [facility] [address] Department [place] [address] * eGFR (08/31/2024 6:01 AM TRANSACTION MANAGER) Pathologist [facility] eGFR 89 >=60 mL/min/1. 73 m2 Comment: [...] last reviewed 2021. Blood 08/31/2024 6:01 AM TRANSACTION MANAGER 08/31/2024 7:08 AM TRANSACTION MANAGER us Cayden Smiley MD LAB BLOOD ORDERABLES Final Res ult [facility] [address] Department of Laboratories [place], [place] [id number] * (ABNORMAL) Differential, auto (08/31/2024 6:01 AM TRANSACTION MANAGER) Pathologist [facility] Neutrophil abs 8.4(H) 1.5 - 6.5 K/cumm Imm gran abs 0.3(H) 0.0 - 0.1 K/cumm [facility] Lymphocyte abs 1.3 0.8 - 3.3 K/cumm [facility] Monocyte abs 2.0(H) 0.2 - 0.8 K/cumm [facility] Eosinophil abs 0.0 0.0 - 0.5 K/cumm [facility] Basophil abs 0.1 0.0 - 0.1 K/cumm [facility] Neutrophil pct 69.4 % [facility] Comment: Interpretive Data Percent cell count reference ranges are not reported, since discordance with absolute values may lead to misinterpretation of CBC data. Current Interpretive Data was last revised on 2017. Imm gran pct 2.3 % [facility] Comment: Interpretive Data Percent cell count reference ranges are not reported, since discordance with absolute values may lead to misinterpretation of CBC data. Current Interpretive Data was last revised on 2017. Lymphocyte pct 10.7 % [facility] Comment: Interpretive Data Percent cell count reference ranges are not reported, since discordance with absolute values may lead to misinterpretation of CBC data. Current Interpretive Data was last revised on 2017. Monocyte pct 16.6 % [facility] Comment: Interpretive Data Percent cell count reference ranges are not reported, since discordance with absolute values may lead to misinterpretation of CBC data. Current Interpretive Data was last revised on 2017. Eosinophil pct 0.3 % [facility] Comment: Interpretive Data Percent cell count reference ranges are not reported, since discordance with absolute values may lead to misinterpretation of CBC data. Current Interpretive Data was last revised on 2017. Basophil pct 0.7 % [facility] Comment: Interpretive Data Percent cell count reference ranges are not reported, since discordance with absolute values may lead to misinterpretation of CBC data. Current Interpretive Data was last revised on 2017. Blood 08/31/2024 6:01 AM TRANSACTION MANAGER 08/31/2024 7:08 AM TRANSACTION MANAGER us Cayden Smiley MD LAB BLOOD ORDERABLES Final Res ult [facility] [address] Department [place] [address] * (ABNORMAL) CBC with auto differential (08/31/2024 6:01 AM TRANSACTION MANAGER) WBC 12.1(H) 3.8 - 9.9 K/cumm Hgb 10.5(L) 13.0 - 17.5 g/dL [facility] Comment:Hemoglobin delta due to apparent blood transfusion. Hct 31.2(L) 38.9 - 50.3 % [facility] Plt 149(L) 150 - 400 K/cumm [facility] MPV 10.6 9.1 - 12.3 fL [facility] RBC 3.24(L) 4.30 - 5.80 M/cumm [facility] MCV 96.3 81.3 - 96.4 fL [facility] MCH 32.4 27.1 - 33.3 pg [facility] MCHC 33.7 32.3 - 35.7 g/dL [facility] RDW CV 15.0(H) 11.1 - 14.9 % [facility] RDW SD 51.6(H) 35.7 - 48.1 fL [facility] NRBC abs 0.15(H) 0.00 - 0.01 K/cumm [facility] Blood 08/31/2024 6:01 AM TRANSACTION MANAGER 08/31/2024 7:08 AM TRANSACTION MANAGER Cayden Smiley MD LAB BLOOD ORDERABLES Final Res ult [facility] [address] Department [place] [address] * Magnesium (08/31/2024 6:01 AM TRANSACTION MANAGER) Pathologist [facility] Magnesium 1.6 1.4 - 2.5 mg/dL Blood 08/31/2024 6:01 AM TRANSACTION MANAGER 08/31/2024 7:08 AM TRANSACTION MANAGER Cayden Smiley MD LAB BLOOD ORDERABLES Final Res ult Performing Organization Address City/[facility]/ZIP Co de Phone Number [facility] [address] Department [employer] [place] [address] * Basic metabolic panel (08/31/2024 6:01 AM TRANSACTION MANAGER) Sodium 136 135 - 145 mmol/L Potassium, pl 3.5 3.3 - 4.9 mmol/L [facility] Chloride 100 97 - 110 mmol/L [facility] CO2 25 22 - 32 mmol/L [facility] Anion gap 11 2 - 15 mmol/L [facility] BUN 10 6 - 25 mg/dL [facility] Creatinine 0.97 0.80 - 1.30 mg/dL [facility] Glucose 132 70 - 199 mg/dL [facility] Comment: Interpretive Data Fasting glucose >/= 126 [...] 2022. Calcium 8.6 8.5 - 10.3 mg/dL [facility] Blood 08/31/2024 6:01 AM TRANSACTION MANAGER 08/31/2024 7:08 AM TRANSACTION MANAGER Cayden Smiley MD LAB BLOOD ORDERABLES Final Res ult Performing Organization Address City/[facility]/ZIP Co de Phone Number [facility] [address] Department [employer] [place] [address] * (ABNORMAL) Calcium, ionized (08/30/2024 11:56 AM TRANSACTION MANAGER) Calcium, Ionized 3.61(L) 4.50 - 5.10 mg/dL Blood 08/30/2024 11:5 6 AM TRANSACTION MANAGER 08/30/2024 11:57 AM TRANSACTION MANAGER us Cayden Smiley MD LAB BLOOD ORDERABLES Final Res ult [facility] [address] Department [place] [address] * US RUQ (08/30/2024 8:29 AM TRANSACTION MANAGER) Anatomical Region Laterality Modality Abdomen N/A Ultrasound 08/30/2024 8:36 AM TRANSACTION MANAGER Impressions 08/30/2024 8:36 AM TRANSACTION MANAGER 1. Increased hepatic echogenicity consistent with hepatic steatosis. 2. ??Gallbladder containing stones and sludge without evidence of acute cholecystitis. Electronically signed by: Dean Pichardo M.D. Narrative 08/30/2024 8:36 AM TRANSACTION MANAGER EXAMINATION: ??LIMITED ABDOMINAL SONOGRAM HISTORY: ??Concern for [...] Dean Pichardo M.D. us Cristo Funes MD IMG US PROCEDURES F inal Result * eGFR (08/30/2024 5:23 AM TRANSACTION MANAGER) eGFR 83 >=60 mL/min/1. 73 m2 Comment: [...] last reviewed 2021. Blood 08/30/2024 5:23 AM TRANSACTION MANAGER 08/30/2024 6:41 AM TRANSACTION MANAGER Cayden Smiley MD LAB BLOOD ORDERABLES Final Res ult [facility] [address] Department [place] [address] * (ABNORMAL) Differential, auto (08/30/2024 5:23 AM TRANSACTION MANAGER) Neutrophil abs 6.2 1.5 - 6.5 K/cumm Imm gran abs 0.1 0.0 - 0.1 K/cumm [facility] Lymphocyte abs 1.0 0.8 - 3.3 K/cumm [facility] Monocyte abs 1.0(H) 0.2 - 0.8 K/cumm [facility] Eosinophil abs 0.0 0.0 - 0.5 K/cumm [facility] Basophil abs 0.0 0.0 - 0.1 K/cumm [facility] Neutrophil pct 74.3 % [facility] Comment: Interpretive Data Percent cell count reference ranges are not reported, since discordance with absolute values may lead to misinterpretation of CBC data. Current Interpretive Data was last revised on 2017. Imm gran pct 1.1 % [facility] Comment: Interpretive Data Percent cell count reference ranges are not reported, since discordance with absolute values may lead to misinterpretation of CBC data. Current Interpretive Data was last revised on 2017. Lymphocyte pct 11.6 % [facility] Comment: Interpretive Data Percent cell count reference ranges are not reported, since discordance with absolute values may lead to misinterpretation of CBC data. Current Interpretive Data was last revised on 2017. Monocyte pct 12.4 % [facility] Comment: Interpretive Data Percent cell count reference ranges are not reported, since discordance with absolute values may lead to misinterpretation of CBC data. Current Interpretive Data was last revised on 2017. Eosinophil pct 0.4 % [facility] Comment: Interpretive Data Percent cell count reference ranges are not reported, since discordance with absolute values may lead to misinterpretation of CBC data. Current Interpretive Data was last revised on 2017. Basophil pct 0.2 % [facility] Comment: Interpretive Data Percent cell count reference ranges are not reported, since discordance with absolute values may lead to misinterpretation of CBC data. Current Interpretive Data was last revised on 2017. Blood 08/30/2024 5:23 AM TRANSACTION MANAGER 08/30/2024 6:42 AM TRANSACTION MANAGER Cayden Smiley MD LAB BLOOD ORDERABLES Final Res ult Performing Organization Address City/[facility]/ZIP Co de Phone Number [facility] [address] [place] [place] [address] * (ABNORMAL) Basic metabolic panel (08/30/2024 5:23 AM TRANSACTION MANAGER) [facility] Sodium 134(L) 135 - 145 mmol/L Potassium, pl 2.9(L) 3.3 - 4.9 mmol/L [facility] Chloride 97 97 - 110 mmol/L [facility] CO2 27 22 - 32 mmol/L [facility] Anion gap 10 2 - 15 mmol/L [facility] BUN 22 6 - 25 mg/dL [facility] Creatinine 1.03 0.80 - 1.30 mg/dL [facility] Glucose 106 70 - 199 mg/dL [facility] Comment: Interpretive Data Fasting glucose >/= 126 [...] 2022. Calcium 7.5(L) 8.5 - 10.3 mg/dL [facility] Blood 08/30/2024 5:23 AM TRANSACTION MANAGER 08/30/2024 6:41 AM TRANSACTION MANAGER Result [facility] Cayden Smiley MD LAB BLOOD ORDERABLES Final Res ult Performing Organization Address City/[facility]/ZIP Co de Phone Number [facility] [address] [email or web address] [address] * (ABNORMAL) CBC with auto differential (08/30/2024 5:23 AM TRANSACTION MANAGER) Pathologist [facility] WBC 8.4 3.8 - 9.9 K/cumm Hgb 7.8(L) 13.0 - 17.5 g/dL [facility] Hct 23.3(L) 38.9 - 50.3 % [facility] Plt 74(L) 150 - 400 K/cumm [facility] MPV 10.9 9.1 - 12.3 fL [facility] RBC 2.39(L) 4.30 - 5.80 M/cumm [facility] MCV 97.5(H) 81.3 - 96.4 fL [facility] MCH 32.6 27.1 - 33.3 pg [facility] MCHC 33.5 32.3 - 35.7 g/dL [facility] RDW CV 15.8(H) 11.1 - 14.9 % [facility] RDW SD 54.4(H) 35.7 - 48.1 fL [facility] NRBC abs 0.12(H) 0.00 - 0.01 K/cumm [facility] Blood 08/30/2024 5:23 AM TRANSACTION MANAGER 08/30/2024 6:42 AM TRANSACTION MANAGER us Cayden Smiley MD LAB BLOOD ORDERABLES Final Res ult [facility] [address] Department [place] [address] * C. difficile testing Stool (08/29/2024 11:07 PM TRANSACTION MANAGER) Pathologist [facility] GDH Result Positive Negative Toxin Result Negative Negative [facility] C. diff result Negative, free toxin. Negative, free toxin [facility] C. diff interp GDH+/toxin- results almost never represent true C. difficile infection (CDI). Results may represent ??colonization with C. difficile without CDI, detection of a bacteria other than toxigenic C. difficile, or a false negative toxin assay. If there is a high index of suspicion for CDI, additional testing by PCR is available upon request. [facility] Stool 08/29/2024 11:0 7 PM TRANSACTION MANAGER 08/29/2024 11:07 PM TRANSACTION MANAGER Kelby Gore MD LAB MICROBIOLOGY - GENERAL ORDER HOLA Final Result Performing Organization Address [facility] Co de Phone Number [facility] [address] Department of Laboratories [place], [place] [id number] * (ABNORMAL) Hemoglobin and hematocrit (08/29/2024 1:56 PM TRANSACTION MANAGER) Hgb 8.3(L) 13.0 - 17.5 g/dL Hct 24.5(L) 38.9 - 50.3 % [facility] Blood 08/29/2024 1:56 PM TRANSACTION MANAGER 08/29/2024 2:03 PM TRANSACTION MANAGER Cristo Funes MD LAB BLOOD ORDERABLE S Final Result Performing Organization Address [facility] Co de Phone Number [facility] [address] Department of Laboratories [place], [place] [phone] * Surgical pathology (08/29/2024 10:14 AM TRANSACTION MANAGER) Tissue (Esophageal biopsy) 08/29/2024 10:14 AM TRANSACTION MANAGER Narrative [facility] - 09/02/2024 8:13 AM TRANSACTION MANAGER [address] ??[address] Tele: ?? Dara Paz MD - Manager Of Revenue Note to Patients: This report may contain [...] REPORT Patient Name: ??JONES SANABRIA Address: ??[address] [place], [place] ??[address] Gender: ??M : ??1965 (Age: 59) Service: ??Cardiology Location: ??[id number], ?? Hospital #: ??[id number] Patient Type: ??[facility] Accession #: ? [id number] Taken: ? 08/29/2024 Received ? 08/29/2024 Reported: [...] submitted in A1. ?? jxi/08/29/2024 13:26 ? [facility],JXI MICROSCOPIC DESCRIPTION: Sections from the lower third [...] features are evident. Clerical Data Follows A; 65659, 56612, 54040, 97404 REPORT IMAGES AND/OR SCANNED DOCUMENTS ONLY VIEWABLE IN PDF FORMAT The immunohistochemical test(s) cited in this report, if any, was developed and its performance characteristics determined by [facility] Pathology Department. ??It has not been cleared or approved by the U.S. Food and Drug Administration. ??The FDA has determined that such clearance or approval is not necessary. ??This test is used for clinical purposes. ??It should not be regarded as investigational or for research. ??[facility] Laboratory is certified under the Clinical Laboratory [...] part or completely in the following laboratories: [facility], [address] [place] [address], [address] [place] [address]. Cristo Funes MD LAB PATHOLOGY ORDER HOLA Final Result [facility] Laboratory Receiving [address] [place] [address] * EGD (08/29/2024 9:54 AM TRANSACTION MANAGER) Anatomical Region Laterality Modality Other Narrative Procedure Note Cristo Funes MD - 08/29/2024 9:54 AM CST ENDOSCOPY LAB Patient Name: Jones Sanabria Procedure Date: 08/29/2024 9:54 AM Admit Type: Inpatient Room: [facility] 3 Date of : 1965 Instrument Name: [id number] [...] Result * Transfuse RBC (08/29/2024 7:52 AM TRANSACTION MANAGER) Blood Kelby Gore MD BLOOD TRANSFUSION ORDERABLES Fin al Result Performing Organization Address [facility] de Phone Number [facility] [address] [place] [place] [address] * Transfuse RBC: 1 Units (08/29/2024 7:52 AM TRANSACTION MANAGER) Blood Kelby Gore MD BLOOD TRANSFUSION ORDERABLES Fin al Result * (ABNORMAL) Manual Differential (08/29/2024 6:29 AM TRANSACTION MANAGER) Differential Auto RBC morphology Normal [facility] Platelet estimate Decreased(A ) [facility] Morphology scrn See Comment [facility] Comment:PLT: Platelet morpho logy normal Blood 08/29/2024 6:29 AM TRANSACTION MANAGER 08/29/2024 6:41 AM TRANSACTION MANAGER Scott Brantley MD LAB BLOOD ORDERABLES Fin al Result Performing Organization Address [facility] Co de Phone Number [facility] [address] [email or web address] [address] * (ABNORMAL) eGFR (08/29/2024 6:29 AM TRANSACTION MANAGER) eGFR 59(L) >=60 mL/min/1. 73 m2 Comment: [...] last reviewed 2021. Blood 08/29/2024 6:29 AM TRANSACTION MANAGER 08/29/2024 6:43 AM TRANSACTION MANAGER us Scott Brantley MD LAB BLOOD ORDERABLES Fin al Result [facility] [address] Department [place] [address] * (ABNORMAL) Differential, auto (08/29/2024 6:29 AM TRANSACTION MANAGER) Neutrophil abs 7.4(H) 1.5 - 6.5 K/cumm Imm gran abs 0.1 0.0 - 0.1 K/cumm [facility] Lymphocyte abs 0.9 0.8 - 3.3 K/cumm [facility] Monocyte abs 1.1(H) 0.2 - 0.8 K/cumm [facility] Eosinophil abs 0.0 0.0 - 0.5 K/cumm [facility] Basophil abs 0.0 0.0 - 0.1 K/cumm [facility] Neutrophil pct 77.8 % [facility] Comment: Interpretive Data Percent cell count reference ranges are not reported, since discordance with absolute values may lead to misinterpretation of CBC data. Current Interpretive Data was last revised on 2017. Imm gran pct 0.8 % [facility] Comment: Interpretive Data Percent cell count reference ranges are not reported, since discordance with absolute values may lead to misinterpretation of CBC data. Current Interpretive Data was last revised on 2017. Lymphocyte pct 9.4 % [facility] Comment: Interpretive Data Percent cell count reference ranges are not reported, since discordance with absolute values may lead to misinterpretation of CBC data. Current Interpretive Data was last revised on 2017. Monocyte pct 11.6 % [facility] Comment: Interpretive Data Percent cell count reference ranges are not reported, since discordance with absolute values may lead to misinterpretation of CBC data. Current Interpretive Data was last revised on 2017. Eosinophil pct 0.2 % [facility] Comment: Interpretive Data Percent cell count reference ranges are not reported, since discordance with absolute values may lead to misinterpretation of CBC data. Current Interpretive Data was last revised on 2017. Basophil pct 0.2 % [facility] Comment: Interpretive Data Percent cell count reference ranges are not reported, since discordance with absolute values may lead to misinterpretation of CBC data. Current Interpretive Data was last revised on 2017. Blood 08/29/2024 6:29 AM TRANSACTION MANAGER 08/29/2024 6:41 AM TRANSACTION MANAGER us Scott Brantley MD LAB BLOOD ORDERABLES Fin al Result [facility] [address] Department [place] [address] * Magnesium (08/29/2024 6:29 AM TRANSACTION MANAGER) [facility] Magnesium 1.8 1.4 - 2.5 mg/dL Blood 08/29/2024 6:29 AM TRANSACTION MANAGER 08/29/2024 6:43 AM TRANSACTION MANAGER Roman Wells NP LAB BLOOD ORDERABLES Final Result Performing Organization Address [facility]/ZIP Co de Phone Number [facility] [address] Department [place] [address] * (ABNORMAL) CBC with auto differential (08/29/2024 6:29 AM TRANSACTION MANAGER) [facility] WBC 9.5 3.8 - 9.9 K/cumm Hgb 8.0(L) 13.0 - 17.5 g/dL [facility] Hct 23.8(L) 38.9 - 50.3 % [facility] Plt 58(L) 150 - 400 K/cumm [facility] MPV 10.9 9.1 - 12.3 fL [facility] RBC 2.44(L) 4.30 - 5.80 M/cumm [facility] MCV 97.5(H) 81.3 - 96.4 fL [facility] MCH 32.8 27.1 - 33.3 pg [facility] MCHC 33.6 32.3 - 35.7 g/dL [facility] RDW CV 15.3(H) 11.1 - 14.9 % [facility] RDW SD 52.5(H) 35.7 - 48.1 fL [facility] NRBC abs 0.13(H) 0.00 - 0.01 K/cumm [facility] Blood 08/29/2024 6:29 AM TRANSACTION MANAGER 08/29/2024 6:41 AM TRANSACTION MANAGER Scott Brantley MD LAB BLOOD ORDERABLES Fin al Result Performing Organization Address City/[facility]/ZIP Co de Phone Number [facility] [address] Department [place] [address] * (ABNORMAL) Basic metabolic panel (08/29/2024 6:29 AM TRANSACTION MANAGER) [facility] Sodium 138 135 - 145 mmol/L Potassium, pl 3.4 3.3 - 4.9 mmol/L [facility] Chloride 99 97 - 110 mmol/L [facility] CO2 28 22 - 32 mmol/L [facility] Anion gap 11 2 - 15 mmol/L [facility] BUN 34(H) 6 - 25 mg/dL [facility] Creatinine 1.37(H) 0.80 - 1.30 mg/dL [facility] Glucose 141 70 - 199 mg/dL [facility] Comment: Interpretive Data Fasting glucose >/= 126 [...] 2022. Calcium 7.4(L) 8.5 - 10.3 mg/dL [facility] Blood 08/29/2024 6:29 AM TRANSACTION MANAGER 08/29/2024 6:43 AM TRANSACTION MANAGER Scott Brantley MD LAB BLOOD ORDERABLES Fin al Result [facility] [address] Department [place] [address] * Prepare RBC (08/29/2024 2:41 AM TRANSACTION MANAGER) [facility] Product code [id number] Unit Number [id number] [facility] Product Blood Type BPOS [facility] Dispense Status PRESUMED TRANSFUSED [facility] Blood 08/29/2024 2:41 AM TRANSACTION MANAGER 08/29/2024 2:40 AM TRANSACTION MANAGER Scott Brantley MD BLOOD BANK PRODUCT ORDER HOLA Final Result Performing Organization Address [facility] de Phone Number [facility] [address] Department [employer] [place] [address] * (ABNORMAL) Hemoglobin and hematocrit (08/29/2024 12:51 AM TRANSACTION MANAGER) Hgb 7.3(L) 13.0 - 17.5 g/dL Hct 22.7(L) 38.9 - 50.3 % [facility] Blood 08/29/2024 12:5 1 AM TRANSACTION MANAGER 08/29/2024 12:51 AM TRANSACTION MANAGER Cristo Funes MD LAB BLOOD ORDERABLE S Final Result Performing Organization Address [facility] de Phone Number [facility] [address] Department [employer] [place] [address] * Check Sample (08/28/2024 7:16 PM TRANSACTION MANAGER) ABO Rh B Positive MBC HCLL OTHER 08/28/2024 7:16 PM TRANSACTION MANAGER 08/28/2024 8:04 PM TRANSACTION MANAGER Scott Brantley MD LAB BLOOD ORDERABLES Fin al Result Performing Organization Address [facility] de Phone Number [facility] [address] [place] [employer] [place] [address] MBC * (ABNORMAL) Hemoglobin and hematocrit (08/28/2024 7:16 PM TRANSACTION MANAGER) Hgb 8.6(L) 13.0 - 17.5 g/dL Hct 26.0(L) 38.9 - 50.3 % [facility] Blood 08/28/2024 7:16 PM TRANSACTION MANAGER 08/28/2024 7:16 PM TRANSACTION MANAGER Roman Wells NP LAB BLOOD ORDERABLES Final Result Performing Organization Address City/[facility]/ZIP Co de Phone Number [facility] [address] [facility] [employer] [place], [place] [id number] * Type and screen (08/28/2024 7:10 PM TRANSACTION MANAGER) ABO Rh B Positive Elvin, indirect Negative [facility] Blood 08/28/2024 7:10 PM TRANSACTION MANAGER 08/28/2024 7:21 PM TRANSACTION MANAGER Narrative [facility] - 08/28/2024 7:59 PM TRANSACTION MANAGER If not done within 72 hours prior to infusion. Has the patient had Daratumumab or Isatuximab in the past 6 months?->Unknown Scott Brantley MD LAB BLOOD BANK TEST ORDE RABLES Final Result Performing Organization Address [facility] Co de Phone Number [facility] [address] [employer] [place] [address] documented in this encounter Visit Diagnoses Diagnosis Acute GI bleeding- Primary Unspecified, hemorrhage of gastrointestinal tract Acute GI bleeding Unspecified, hemorrhage of gastrointestinal tract Colitis Other and unspecified noninfectious gastroenteritis and colitis Hypercholesterolemia Pure hypercholesterolemia Colitis Other and unspecified noninfectious gastroenteritis and colitis documented in this encounter Admitting Diagnoses Diagnosis Acute GI bleeding Unspecified, hemorrhage of gastrointestinal tract Colitis Other and unspecified noninfectious gastroenteritis and colitis documented in this encounter Administered Medications Inactive Administered Medications - up to 3 most recent administrations Medication Order MAR Action Action Date Dose Rate Site bisacodyL (DULCOLAX) suppository 10 mg 10 mg, rectal, Daily PRN, constipation, if no results 24 hours after polyethylene glycol administration, Starting on Celestina 08/28/24 at 1753, Administer if not tolerating PO., Indications: constipationIndications:eleni paticalvin bisacodyl EC (DULCOLAX EC) tablet 10 mg 10 mg, oral, Daily PRN, constipation, if no results 24 hours after polyethylene glycol administration, Starting on Celestina 08/28/24 at 1753, Administer if tolerating PO. Do not crush, chew, cut, dissolve, open or otherwise manipulate tablet/capsule., Indications: constipationIndications:consti pation calcium gluconate 1 gram/100 mL in sodium chloride 0.9% (premix) solution 1 g 1 g, intravenous, at 100 mL/hr, Administer over 60 Minutes, Once, On 08/30/24 at 1245, For 1 dose, Indications: hypocalcemiaIndications:hypoca lcemia New Bag 08/30/2024 12:36 PM TRANSACTION MANAGER 1 g 100 mL/hr diphenhydrAMINE (BENADRYL) tab/cap 25 mg 25 mg, oral, Every 4 hours PRN, itching, allergies, sleep, Starting on 08/31/24 at 1025 Given 08/31/2024 11:20 PM TRANSACTION MANAGER 25 mg Given 08/31/2024 10:40 AM TRANSACTION MANAGER 25 mg ioversoL (OPTIRAY 350) syringe 100 mL 100 mL, intravenous, Once in imaging, contrast, Starting on 08/31/24 at 1228, For 1 dose Contrast Given 08/31/2024 12:31 PM TRANSACTION MANAGER 96 mL loperamide (IMODIUM) capsule 2 mg 2 mg, oral, 4 times daily PRN, diarrhea, Starting on 08/30/24 at 1244, Maximum recommended dose 16 mg/day Given 08/30/2024 1:50 PM TRANSACTION MANAGER 2 mg loperamide (IMODIUM) capsule 2 mg 2 mg, oral, 4 times daily, First dose (after last modification) on 08/31/24 at 1700, Maximum recommended dose 16 mg/day Given 08/31/2024 4:29 PM TRANSACTION MANAGER 2 mg LORazepam (ATIVAN) tablet 1 mg 1 mg, oral, Every 4 hours PRN, other, Score between 3 and 5 on Alcohol Withdrawl Assessment, Starting on Celestina 08/28/24 at 2036, For 6 days, HOLD for any status indicating over sedation including the following: drifts off to sleep during conversation, minimal or no response to verbal or physical stimulation, or respiratory rate less than 10 breaths per minute., Indications: Alcohol Withdrawal Assessment Scale scoreIndications:Alcohol Withdrawal Assessment Scale score Given 08/31/2024 4:34 PM TRANSACTION MANAGER 1 mg Given 08/31/2024 8:03 AM TRANSACTION MANAGER 1 mg Given 08/30/2024 9:12 PM TRANSACTION MANAGER 1 mg magnesium sulfate 1 g/100 mL in dextrose 5% (premix) 1 g 1 g, intravenous, at 100 mL/hr, Administer over 60 Minutes, Once, On 08/31/24 at 0945, For 1 dose New Bag 08/31/2024 9:25 AM TRANSACTION MANAGER 1 g 100 mL/hr morphine injection 2 mg 2 mg, intravenous, Administer over 4 Minutes, Every 4 hours PRN, 3rd line for pain, Starting on Sun08/29/24 at 0603 Given 08/29/2024 6:17 AM TRANSACTION MANAGER 2 mg multivitamin with folic acid 400 mcg tablet 1 tablet 1 tablet, oral, Daily, First dose on Sun08/29/24 at 0900 Given 09/02/2024 9:30 AM TRANSACTION MANAGER 1 tablet Given 09/01/2024 8:47 AM TRANSACTION MANAGER 1 tablet Given 08/31/2024 7:58 AM TRANSACTION MANAGER 1 tablet ondansetron (ZOFRAN) injection 4 mg 4 mg, intravenous, Administer over 2 Minutes, Every 6 hours PRN, nausea, vomiting, if not tolerating PO, Starting on Celestina 08/28/24 at 1752, Indications: Nausea and VomitingIndications:Nausea and Vomiting ondansetron ODT (ZOFRAN-ODT) disintegrating tablet 4 mg 4 mg, oral, Every 6 hours PRN, nausea, vomiting, Starting on Celestina 08/28/24 at 1752, Indications: Nausea and VomitingIndications:Nausea and Vomiting Given 08/30/2024 5:24 PM TRANSACTION MANAGER 4 mg pantoprazole (PROTONIX) 40 mg in sodium chloride 0.9% 10 mL IV Syringe 40 mg, intravenous, at 300 mL/hr, Administer over 2 Minutes, Every 12 hours scheduled, First dose on Celestina 08/28/24 at 1830, For IV administration, reconstitute 40 mg vial with 10 mL sodium chloride 0.9% for injection for a final concentration of 4 mg/mL, Indications: Upper GI BleedIndications:Upper GI Bleed Given 09/02/2024 9:30 AM TRANSACTION MANAGER 40 mg 300 mL/hr Given 09/01/2024 9:24 PM TRANSACTION MANAGER 40 mg 300 mL/hr Given 09/01/2024 8:47 AM TRANSACTION MANAGER 40 mg 300 mL/hr polyethylene dtgkqb-xldonzbzsxml-npqX (PLENVU) solution 480 mL 480 mL, oral, Administer over 30 Minutes, Once, On 08/31/24 at 1815, For 1 dose, Pre-Op/Floor (GI), Administer 18:00 the evening before procedure (entire contents of container) Follow administration with 480 mL (16 oz) of clear liquid (over 30 minutes). Consume additional clear liquids during the evening. Place contents of 1 pouch (Dose 1) or 2 pouches (A and B for Dose 2) into provided mixing container. Add water to fill line (~ 480 mL). Mix solution until dissolved (may take 2-3 minutes)., Indications: Bowel EvacuationIndications:Bowel Evacuation Given 08/31/2024 5:44 PM TRANSACTION MANAGER 480 mL polyethylene cwpxhs-vjtnriqsiaai-gsmT (PLENVU) solution 480 mL 480 mL, oral, Administer over 30 Minutes, Once, On 09/01/24 at 0600, For 1 dose, Pre-Op/Floor (GI), Administer 6:00 the morning of the procedure (entire contents of container). Follow administration with 480 mL (16 oz) of clear liquid (over 30 minutes). Consume additional water or clear liquids up to [address] contents of 1 pouch (Dose 1) or 2 pouches (A and B for Dose 2) into provided mixing container. Add water to fill line (~ 480 mL). Mix solution until dissolved (may take 2-3 minutes)., Indications: Bowel EvacuationIndications:Bowel Evacuation Given 09/01/2024 5:07 AM TRANSACTION MANAGER 480 mL potassium chloride 40 mEq in sodium chloride 0.9% 500 mL IVPB 40 mEq, intravenous, at 130 mL/hr, Administer over 4 Hours, Once, On 08/30/24 at 0945, For 1 dose, Indications: hypokalemiaIndications:hypokalemia Restarted 08/30/2024 5:24 PM TRANSACTION MANAGER 130 mL/hr potassium chloride 40 mEq/520 mL in sodium chloride 0.9% (premix) 40 mEq 40 mEq, intravenous, at 130 mL/hr, Administer over 4 Hours, Once, On 09/01/24 at 0945, For 1 dose, Indications: hypokalemiaIndications:hypokalemia New Bag 09/01/2024 9:47 AM TRANSACTION MANAGER 40 mEq 130 mL/hr potassium chloride ER (KLOR-CON) extended release tablet 40 mEq 40 mEq, oral, Once, On Sun08/30/24 at 0945, For 1 dose, Do not crush, chew, cut, dissolve, open or otherwise manipulate tablet/capsule. Given 08/30/2024 11:31 AM TRANSACTION MANAGER 40 mEq potassium chloride ER (KLOR-CON) extended release tablet 40 mEq 40 mEq, oral, Once, On Sun08/31/24 at 0945, For 1 dose, Do not crush, chew, cut, dissolve, open or otherwise manipulate tablet/capsule. Given 08/31/2024 9:25 AM TRANSACTION MANAGER 40 mEq potassium chloride ER (KLOR-CON) extended release tablet 40 mEq 40 mEq, oral, Once, On Sun09/02/24 at 0900, For 1 dose, Do not crush, chew, cut, dissolve, open or otherwise manipulate tablet/capsule. Given 09/02/2024 9:30 AM TRANSACTION MANAGER 40 mEq ramelteon (ROZEREM) tablet 8 mg 8 mg, oral, Nightly PRN, sleep, Starting on Sun08/28/24 at 1753, Indications: Sleep-Onset InsomniaIndications:Sleep-Onset Insomnia Given 08/29/2024 9:10 PM TRANSACTION MANAGER 8 mg Given 08/28/2024 9:16 PM TRANSACTION MANAGER 8 mg rosuvastatin (CRESTOR) tablet 40 mg 40 mg, oral, Daily, First dose on Sun08/28/24 at 2000 Given 09/02/2024 9:30 AM TRANSACTION MANAGER 40 mg Given 09/01/2024 8:47 AM TRANSACTION MANAGER 40 mg Given 08/31/2024 7:58 AM TRANSACTION MANAGER 40 mg sodium chloride 0.9% bolus 500 mL 500 mL, intravenous, Once, On Sun08/31/24 at 1015, For 1 dose New Bag 08/31/2024 9:39 AM TRANSACTION MANAGER 500 mL sodium chloride 0.9% bolus 500 mL 500 mL, intravenous, at 500 mL/hr, Administer over 1 Hours, Once, On Sun09/02/24 at 0230, For 1 dose New Bag 09/02/2024 2:40 AM TRANSACTION MANAGER 500 mL 500 mL/hr sodium chloride 0.9% flush 0.5-20 mL 0.5-20 mL, intra-catheter, Every 8 hours scheduled (alternate), First dose on Sun08/28/24 at 1830, Flush volume based on line type and size. Given 09/02/2024 9:31 AM TRANSACTION MANAGER 10 mL Given 09/01/2024 11:25 PM TRANSACTION MANAGER 10 mL Given 09/01/2024 8:50 AM TRANSACTION MANAGER 10 mL sodium chloride 0.9% infusion 100 mL/hr, intravenous, Continuous, Starting on Sun08/28/24 at 1945, For 10 hours New Bag 08/28/2024 8:27 PM TRANSACTION MANAGER 100 mL/hr 100 mL/hr sodium chloride 0.9% infusion 100 mL/hr, intravenous, Continuous, Starting on Sun08/29/24 at 1000, For 10 hours New Bag 08/29/2024 11:25 AM TRANSACTION MANAGER 100 mL/hr 100 mL/hr sodium chloride 0.9% infusion 100 mL/hr, intravenous, Continuous, Starting on Sun08/31/24 at 1015, For 1 day New Bag 09/01/2024 6:12 AM TRANSACTION MANAGER 100 mL/hr 100 mL/hr New Bag 08/31/2024 9:39 AM TRANSACTION MANAGER 100 mL/hr 100 mL/hr sodium chloride 0.9% infusion 100 mL/hr, intravenous, Continuous, Starting on Sun09/01/24 at 1100 sodium chloride 0.9% infusion 100 mL/hr, intravenous, Continuous, Starting on Sun09/01/24 at 0945, For 1 day New Bag 09/02/2024 9:32 AM TRANSACTION MANAGER 100 mL/hr 100 mL/hr New Bag 09/01/2024 9:48 AM TRANSACTION MANAGER 100 mL/hr 100 mL/hr tamsulosin (FLOMAX) extended release capsule 0.4 mg 0.4 mg, oral, Daily, First dose on Sun08/28/24 at 2000, Do not crush, chew, cut, dissolve, open or otherwise manipulate tablet/capsule. Given 09/02/2024 9:30 AM TRANSACTION MANAGER 0.4 mg Given 09/01/2024 8:47 AM TRANSACTION MANAGER 0.4 mg Given 08/31/2024 7:58 AM TRANSACTION MANAGER 0.4 mg tiZANidine (ZANAFLEX) tablet 4 mg 4 mg, oral, Nightly PRN, muscle spasms, Starting on Sun08/28/24 at 1920, Administer on an empty stomach Given 08/29/2024 9:10 PM TRANSACTION MANAGER 4 mg Given 08/28/2024 9:16 PM TRANSACTION MANAGER 4 mg vancomycin (VANCOCIN) capsule 125 mg 125 mg, oral, Every 6 hours, First dose on 09/01/24 at 1500, For 10 days, Do not crush, chew, cut, dissolve, open or otherwise manipulate tablet/capsule., Indications: Clostridioides difficile infectionIndications:Clostridioides difficile infection Given 09/02/2024 9:30 AM TRANSACTION MANAGER 125 mg Given 09/02/2024 2:49 AM TRANSACTION MANAGER 125 mg Given 09/01/2024 9:24 PM TRANSACTION MANAGER 125 mg documented in this encounter Discontinued Medications Medication Sig Discontinue Reason Start Date End Da te nebivolol (BYSTOLIC) 5 mg tablet take 1 tablet by oral route every day 12/15/2015 08/28/[address] (PROTONIX) 40 mg EC tablet Take 1 tablet (40 mg total) by mouth 3 (three) times a day 09/02/2024 meloxicam (MOBIC) 7.5 mg tablet Take 1 tablet (7.5 mg total) by mouth daily Stop Taking at Discharge 09/02/2024 documented as of this encounter Historical Medications * This list may reflect changes made after this encounter. magnesium oxide (MAG-OX) 400 mg (241.3 mg elemental magnesium) tabletIndications :hypomagnesemia Take 0.5 tablets (200 mg total) by mouth daily tamsulosin (FLOMAX) 0.4 mg extended release capsule Take 1 capsule (0.4 mg total) by mouth daily rosuvastatin (CRESTOR) 40 mg tablet Take 1 tablet (40 mg total) by mouth daily tiZANidine (ZANAFLEX) 4 mg tablet Take 1 tablet (4 mg total) by mouth nightly as needed for muscle spasms multivitamin with folic acid 400 mcg tablet Take 1 tablet by mouth daily pantoprazole DR (PROTONIX) 40 mg EC tablet Take 1 tablet (40 mg total) by mouth 3 (three) times a day 09/02/2024 meloxicam (MOBIC) 7.5 mg tablet Take 1 tablet (7.5 mg total) by mouth daily 09/02/2024 added in this encounter Active and Recently Administered Medications Times are shown in TRANSACTION MANAGER. Scheduled Medication Order 08/31/2024 09/01/2024 09/02/2024 loperamide (IMODIUM) capsule 2 mg (CANCELED) 2 mg, oral, 4 times daily, First dose (after last modification) on 08/31/24 at 1700, Maximum recommended dose 16 mg/day 1629 (Given - Provider: Efren Bowling RN)2127 (Not Given - Provider: Ai Marroquin RN - Reason: Contraindicated - Comment: pt doing bowel prep) 0851 (Not Given - Provider: Faith Diallo RN - Reason: Order parameters not met - Comment: colonoscopy)1003 (MAR Hold - Provider: Automatic Transfer Provider - Reason: Patient not available)1144 (MAR Unhold - Provider: Cayden Smiley MD) magnesium sulfate 1 g/100 mL in dextrose 5% (premix) 1 g (COMPLETED) 1 g, intravenous, at 100 mL/hr, Administer over 60 Minutes, Once, On 08/31/24 at 0945, For 1 dose 0925 (New Bag - Provider: Efren Bowling RN) multivitamin with folic acid 400 mcg tablet 1 tablet 1 tablet, oral, Daily, First dose on Sun08/29/24 at 0900 0758 (Given - Provider: Efren Bowling RN) 0847 (Given - Provider: Faith Diallo RN)1003 (MAR Hold - Provider: Automatic Transfer Provider - Reason: Patient not available)1422 (MAR Unhold - Provider: Automatic Transfer Provider) 0930 (Given - Provider: Kayal Partida RN) pantoprazole (PROTONIX) 40 mg in sodium chloride 0.9% 10 mL IV Syringe 40 mg, intravenous, at 300 mL/hr, Administer over 2 Minutes, Every 12 hours scheduled, First dose on Celestina 08/28/24 at 1830, For IV administration, reconstitute 40 mg vial with 10 mL sodium chloride 0.9% for injection for a final concentration of 4 mg/mL, Indications: Upper GI Bleed 0758 (Given - Provider: Efren Bowling RN)2128 (Given - Provider: Ai Marroquin RN) 0847 (Given - Provider: Faith Diallo RN)1003 (MAR Hold - Provider: Automatic Transfer Provider - Reason: Patient not available)1422 (MAR Unhold - Provider: Automatic Transfer Provider)2124 (Given - Provider: Maddison Capellan, MOOSE) 0930 (Given - Provider: Kayla Partida RN) polyethylene vhnwep-lqppiwmciinw-osd C (PLENVU) solution 480 mL (COMPLETED)(Linked Group 1) 480 mL, oral, Administer over 30 Minutes, Once, On Sun08/31/24 at 1815, For 1 dose, Pre-Op/Floor (GI), Administer 18:00 the evening before procedure (entire contents of container) Follow administration with 480 mL (16 oz) of clear liquid (over 30 minutes). Consume additional clear liquids during the evening. Place contents of 1 pouch (Dose 1) or 2 pouches (A and B for Dose 2) into provided mixing container. Add water to fill line (~ 480 mL). Mix solution until dissolved (may take 2-3 minutes)., Indications: Bowel Evacuation 1744 (Given - Provider: Efren Bowling RN) polyethylene vpwqvi-tsqwqqaejyel-plf C (PLENVU) solution 480 mL (COMPLETED)(Linked Group 1) 480 mL, oral, Administer over 30 Minutes, Once, On Sun09/01/24 at 0600, For 1 dose, Pre-Op/Floor (GI), Administer 6:00 the morning of the procedure (entire contents of container). Follow administration with 480 mL (16 oz) of clear liquid (over 30 minutes). Consume additional water or clear liquids up to [address] contents of 1 pouch (Dose 1) or 2 pouches (A and B for Dose 2) into provided mixing container. Add water to fill line (~ 480 mL). Mix solution until dissolved (may take 2-3 minutes)., Indications: Bowel Evacuation 0507 (Given - Provider: Ai Marroquin RN) potassium chloride 40 mEq/520 mL in sodium chloride 0.9% (premix) 40 mEq (COMPLETED) 40 mEq, intravenous, at 130 mL/hr, Administer over 4 Hours, Once, On Sun09/01/24 at 0945, For 1 dose, Indications: hypokalemia 0947 (New Bag - Provider: Faith Diallo RN) potassium chloride ER (KLOR-CON) extended release tablet 40 mEq (COMPLETED) 40 mEq, oral, Once, On 12/29/24 at 0945, For 1 dose, Do not crush, chew, cut, dissolve, open or otherwise manipulate tablet/capsule. 0925 (Given - Provider: Efren Bowling RN) potassium chloride ER (KLOR-CON) extended release tablet 40 mEq (COMPLETED) 40 mEq, oral, Once, On Sun09/02/24 at 0900, For 1 dose, Do not crush, chew, cut, dissolve, open or otherwise manipulate tablet/capsule. 0930 (Given - Provider: Kayla Partida, MOOSE) rosuvastatin (CRESTOR) tablet 40 mg 40 mg, oral, Daily, First dose on Sun08/28/24 at 2000 0758 (Given - Provider: Efren Bowling RN) 0847 (Given - Provider: Faith Diallo RN)1003 (MAR Hold - Provider: Automatic Transfer Provider - Reason: Patient not available)1422 (MAR Unhold - Provider: Automatic Transfer Provider) 0930 (Given - Provider: Kayla Partida RN) sodium chloride 0.9% bolus 500 mL (COMPLETED) 500 mL, intravenous, Once, On Sun08/31/24 at 1015, For 1 dose 0939 (New Bag - Provider: Efren Bowling RN) sodium chloride 0.9% bolus 500 mL (COMPLETED) 500 mL, intravenous, at 500 mL/hr, Administer over 1 Hours, Once, On Sun09/02/24 at 0230, For 1 dose 0240 (New Bag - Provider: Maddison Capellan RN - Comment: power outage) sodium chloride 0.9% flush 0.5-20 mL 0.5-20 mL, intra-catheter, Every 8 hours scheduled (alternate), First dose on Sun08/28/24 at 1830, Flush volume based on line type and size. 0009 (Given - Provider: Ai Marroquin RN)0926 (Given - Provider: Efren Bowling RN)1538 (Not Given - Provider: Efren Bowling RN - Reason: IV Infusing) 0022 (Not Given - Provider: Ai Marroquin RN - Reason: IV Infusing)0850 (Given - Provider: Faith Diallo RN)0851 (Not Given - Provider: Faith Diallo RN - Reason: Other)1003 (NOV Hold - Provider: Automatic Transfer Provider - Reason: Patient not available)1422 (NOV Unhold - Provider: Automatic Transfer Provider)1443 (Not Given - Provider: Faith Diallo RN - Reason: IV Infusing - Comment: iv)2325 (Given - Provider: Maddison Capellan RN) 0931 (Given - Provider: Kayla Partida, MOOSE) tamsulosin (FLOMAX) extended release capsule 0.4 mg 0.4 mg, oral, Daily, First dose on Celestina 08/28/24 at 2000, Do not crush, chew, cut, dissolve, open or otherwise manipulate tablet/capsule. 0758 (Given - Provider: Efren Bowling RN) 0847 (Given - Provider: Faith Diallo RN)1003 (NOV Hold - Provider: Automatic Transfer Provider - Reason: Patient not available)1422 (NOV Unhold - Provider: Automatic Transfer Provider) 0930 (Given - Provider: Kayla Partida, MOOSE) vancomycin (VANCOCIN) capsule 125 mg 125 mg, oral, Every 6 hours, First dose on 09/01/24 at 1500, For 10 days, Do not crush, chew, cut, dissolve, open or otherwise manipulate tablet/capsule., Indications: Clostridioides difficile infection 1445 (Given - Provider: Faith Diallo RN)2124 (Given - Provider: Maddison Capellan RN) 0249 (Given - Provider: Maddison Capellan RN - Comment: Power outage)0930 (Given - Provider: Kayla Partida, MOOSE) Continuous Medication Order 08/31/2024 09/01/2024 09/02/2024 sodium chloride 0.9% infusion () 100 mL/hr, intravenous, Continuous, Starting on 08/31/24 at 1015, For 1 day 0939 (New Bag - Provider: Efren Bowling RN) 0612 (New Bag - Provider: Ai Marroquin, RN) sodium chloride 0.9% infusion 100 mL/hr, intravenous, Continuous, Starting on Sun09/01/24 at 1100 1443 (Not Given - Provider: Faith Diallo RN - Reason: Other - Comment: NS \@100 going) 1048 (Stopped - Provider: Kayla Partida RN - Comment: patient refused) sodium chloride 0.9% infusion 100 mL/hr, intravenous, Continuous, Starting on Sun09/01/24 at 0945, For 1 day 0948 (New Bag - Provider: Faith Diallo RN) 0932 (New Bag - Provider: Kayla Partida RN) PRN Medication Order 08/31/2024 09/01/2024 09/02/2024 acetaminophen (TYLENOL) tablet 650 mg 650 mg, oral, Every 4 hours PRN, 1st line for pain, fever, fever greater than 38.3 C, Starting on Celestina 08/28/24 at 1752, Indications: Fever, Pain 1003 ([facility] Hold - Provider: Automatic Transfer Provider - Reason: Patient not available)1422 ([facility] Unhold - Provider: Automatic Transfer Provider) bisacodyL (DULCOLAX) suppository 10 mg(Linked Group 2) 10 mg, rectal, Daily PRN, constipation, if no results 24 hours after polyethylene glycol administration, Starting on Celestina 08/28/24 at 1753, Administer if not tolerating PO., Indications: constipation 1003 ([facility] Hold - Provider: Automatic Transfer Provider - Reason: Patient not available)1422 ([facility] Unhold - Provider: Automatic Transfer Provider) bisacodyl EC (DULCOLAX EC) tablet 10 mg(Linked Group 2) 10 mg, oral, Daily PRN, constipation, if no results 24 hours after polyethylene glycol administration, Starting on Celestina 08/28/24 at 1753, Administer if tolerating PO. Do not crush, chew, cut, dissolve, open or otherwise manipulate tablet/capsule., Indications: constipation 1003 ([facility] Hold - Provider: Automatic Transfer Provider - Reason: Patient not available)1422 ([facility] Unhold - Provider: Automatic Transfer Provider) Carrier Fluids for Secondary Infusion - 0.9% Sodium Chloride 30 mL, intravenous, As needed, For priming tubing and/or flushing, Starting on Celestina 12/26/24 at 1752, 0-250 ml/hr to flush line after IV infusions when no maintenance IV ordered. Infuse 30mL at the same rate as the secondary infusion. Run as primary IV, not intended for KVO. 1003 (NOV Hold - Provider: Automatic Transfer Provider - Reason: Patient not available)1422 ([facility] Unhold - Provider: Automatic Transfer Provider) diphenhydrAMINE (BENADRYL) tab/cap 25 mg 25 mg, oral, Every 4 hours PRN, itching, allergies, sleep, Starting on 08/31/24 at 1025 1040 (Given - Provider: Efren Bowling, MOOSE)2320 (Given - Provider: Ai Marroquin RN) 1003 (NOV Hold - Provider: Automatic Transfer Provider - Reason: Patient not available)1422 ([facility] Unhold - Provider: Automatic Transfer Provider) ioversoL (OPTIRAY 350) syringe 100 mL (COMPLETED) 100 mL, intravenous, Once in imaging, contrast, Starting on 08/31/24 at 1228, For 1 dose 1231 (Contrast Given - Provider: Cortney Hernandez RT) LORazepam (ATIVAN) tablet 1 mg (CANCELED)(Linked Group 3) 1 mg, oral, Every 4 hours PRN, other, Score between 3 and 5 on Alcohol Withdrawl Assessment, Starting on Celestina 08/28/24 at 2036, For 6 days, HOLD for any status indicating over sedation including the following: drifts off to sleep during conversation, minimal or no response to verbal or physical stimulation, or respiratory rate less than 10 breaths per minute., Indications: Alcohol Withdrawal Assessment Scale score 0803 (Given - Provider: Efren Bowling RN)[id number] (See Alternative - Provider: Efren Bowling, MOOSE)1634 (Given - Provider: Efren Bowling, MOOSE) 1003 (NOV Hold - Provider: Automatic Transfer Provider - Reason: Patient not available)1422 ([facility] Unhold - Provider: Automatic Transfer Provider) ondansetron (ZOFRAN) injection 4 mg(Linked Group 4) 4 mg, intravenous, Administer over 2 Minutes, Every 6 hours PRN, nausea, vomiting, if not tolerating PO, Starting on [facility] 08/28/24 at 1752, Indications: Nausea and Vomiting 1003 ([facility] Hold - Provider: Automatic Transfer Provider - Reason: Patient not available)1422 ([facility] Unhold - Provider: Automatic Transfer Provider) ondansetron ODT (ZOFRAN-ODT) disintegrating tablet 4 mg(Linked Group 4) 4 mg, oral, Every 6 hours PRN, nausea, vomiting, Starting on [facility] 08/28/24 at 1752, Indications: Nausea and Vomiting 1003 ([facility] Hold - Provider: Automatic Transfer Provider - Reason: Patient not available)1422 ([facility] Unhold - Provider: Automatic Transfer Provider) polyethylene glycol (MIRALAX) packet 17 g 17 g, oral, Daily PRN, constipation, Starting on [facility] 08/28/24 at 1753, Indications: constipation 1003 ([facility] Hold - Provider: Automatic Transfer Provider - Reason: Patient not available)1422 ([facility] Unhold - Provider: Automatic Transfer Provider) ramelteon (ROZEREM) tablet 8 mg 8 mg, oral, Nightly PRN, sleep, Starting on [facility] 08/28/24 at 1753, Indications: Sleep-Onset Insomnia 1003 ([facility] Hold - Provider: Automatic Transfer Provider - Reason: Patient not available)1422 ([facility] Unhold - Provider: Automatic Transfer Provider) sodium chloride 0.9% flush 0.5-20 mL 0.5-20 mL, intra-catheter, As needed, line care, Starting on [facility] 08/28/24 at 1752, Flush volume based on line type and size. Flush before and after each use. 1003 ([facility] Hold - Provider: Automatic Transfer Provider - Reason: Patient not available)1422 ([facility] Unhold - Provider: Automatic Transfer Provider) tiZANidine (ZANAFLEX) tablet 4 mg 4 mg, oral, Nightly PRN, muscle spasms, Starting on [facility] 08/28/24 at 1920, Administer on an empty stomach 1003 ([facility] Hold - Provider: Automatic Transfer Provider - Reason: Patient not available)1422 ([facility] Unhold - Provider: Automatic Transfer Provider) Linked Groups Order Group 1: polyethylene xtdeww-pyvmojqafshi-bhvF (PLENVU) solution 480 mL (COMPLETED)Jump to med 480 mL, oral, Administer over 30 Minutes, Once, On 08/31/24 at 1815, For 1 dose, Pre-Op/Floor (GI), Administer 18:00 the evening before procedure (entire contents of container) Follow administration with 480 mL (16 oz) of clear liquid (over 30 minutes). Consume additional clear liquids during the evening. Place contents of 1 pouch (Dose 1) or 2 pouches (A and B for Dose 2) into provided mixing container. Add water to fill line (~ 480 mL). Mix solution until dissolved (may take 2-3 minutes)., Indications: Bowel Evacuation And polyethylene nswyyx-mdrinnrcrfzv-myeH (PLENVU) solution 480 mL (COMPLETED)Jump to med 480 mL, oral, Administer over 30 Minutes, Once, On Sun09/01/24 at 0600, For 1 dose, Pre-Op/Floor (GI), Administer 6:00 the morning of the procedure (entire contents of container). Follow administration with 480 mL (16 oz) of clear liquid (over 30 minutes). Consume additional water or clear liquids up to [address] contents of 1 pouch (Dose 1) or 2 pouches (A and B for Dose 2) into provided mixing container. Add water to fill line (~ 480 mL). Mix solution until dissolved (may take 2-3 minutes)., Indications: Bowel Evacuation Group 2: bisacodyl EC (DULCOLAX EC) tablet 10 mgJump to med 10 mg, oral, Daily PRN, constipation, if no results 24 hours after polyethylene glycol administration, Starting on Sun08/28/24 at 1753, Administer if tolerating PO. Do not crush, chew, cut, dissolve, open or otherwise manipulate tablet/capsule., Indications: constipation Or bisacodyL (DULCOLAX) suppository 10 mgJump to med 10 mg, rectal, Daily PRN, constipation, if no results 24 hours after polyethylene glycol administration, Starting on Sun08/28/24 at 1753, Administer if not tolerating PO., Indications: constipation Group 3: LORazepam (ATIVAN) tablet 1 mg (CANCELED)Jump to med 1 mg, oral, Every 4 hours PRN, other, Score between 3 and 5 on Alcohol Withdrawl Assessment, Starting on Sun08/28/24 at 2036, For 6 days, HOLD for any status indicating over sedation including the following: drifts off to sleep during conversation, minimal or no response to verbal or physical stimulation, or respiratory rate less than 10 breaths per minute., Indications: Alcohol Withdrawal Assessment Scale score Or LORazepam (ATIVAN) tablet 1 mg (CANCELED) 1 mg, oral, Every 2 hours PRN, other, Score between 6 and 12 on Alcohol Withdrawl Assessment, Starting on [facility] 08/28/24 at 2035, For 6 days, HOLD for any status indicating over sedation including the following: drifts off to sleep during conversation, minimal or no response to verbal or physical stimulation, or respiratory rate less than 10 breaths per minute., Indications: Alcohol Withdrawal Assessment Scale score Or LORazepam (ATIVAN) 1 mg in sodium chloride 0.9% (further dilution required) injection (CANCELED) 1 mg, intravenous, Every 1 hour PRN, other, Score between 13 and 18 on Alcohol Withdrawl Assessment, Starting on [facility] 08/28/24 at 2035, For 6 days, HOLD for any status indicating over sedation including the following: drifts off to sleep during conversation, minimal or no response to verbal or physical stimulation, or respiratory rate of less than 10 breaths per minute. Withdraw ordered dose amount then dilute with equal volume of 0.9% sodium chloride. Administer total volume to patient. Do not exceed a rate of 2 mg/minute., Indications: Alcohol Withdrawal Assessment Scale score Or LORazepam (ATIVAN) injection 1 mg (CANCELED) 1 mg, intramuscular, Every 1 hour PRN, other, Score between 13 and 18 on Alcohol Withdrawl Assessment, Starting on [facility] 08/28/24 at 2035, For 6 days, Administer IM if unable to provide IV Push. HOLD for any status indicating over sedation including the following: drifts off to sleep during conversation, minimal or no response to verbal or physical stimulation, or respiratory rate less than10 breaths per minute. For IV administration, draw up ordered admin dose/volume, then dilute with equal volume of 0.9% sodium chloride and administer total volume to patient. Do not exceed a rate of 2 mg/minute., Indications: Alcohol Withdrawal Assessment Scale score Or LORazepam (ATIVAN) 2 mg in sodium chloride 0.9% (further dilution required) injection (CANCELED) 2 mg, intravenous, Every 1 hour PRN, other, Score greater than 18 on Alcohol Withdrawl Assessmen, Starting on [facility] 08/28/24 at 2035, For 6 days, HOLD for any status indicating over sedation including the following: drifts off to sleep during conversation, minimal or no response to verbal or physical stimulation, or respiratory rate less than 10 breaths per minute. Withdraw ordered dose amount then dilute with equal volume of 0.9% sodium chloride. Administer total volume to patient. Do not exceed a rate of 2 mg/minute., Indications: Alcohol Withdrawal Assessment Scale score Or LORazepam (ATIVAN) injection 2 mg (CANCELED) 2 mg, intramuscular, Every 1 hour PRN, other, Score greater than 18 on Alcohol Withdrawl Assessment, Starting on [facility] 08/28/24 at 2036, For 6 days, Administer IM if unable to provide IV Push.HOLD for any status indicating over sedation including the following: drifts off to sleep during conversation, minimal or no response to verbal or physical stimulation, or respiratory rate less than 10 breaths per minute. For IV administration, draw up ordered admin dose/volume, then dilute with equal volume of 0.9% sodium chloride and administer total volume to patient. Do not exceed a rate of 2 mg/minute., Indications: Alcohol Withdrawal Assessment Scale score Group 4: ondansetron ODT (ZOFRAN-ODT) disintegrating tablet 4 mgJump to med 4 mg, oral, Every 6 hours PRN, nausea, vomiting, Starting on [facility] 08/28/24 at 1752, Indications: Nausea and Vomiting Or ondansetron (ZOFRAN) injection 4 mgJump to med 4 mg, intravenous, Administer over 2 Minutes, Every 6 hours PRN, nausea, vomiting, if not tolerating PO, Starting on [facility] 08/28/24 at 1752, Indications: Nausea and Vomiting documented in this encounter Orders Medications Ordered That Gen ht Not Have Been Administered Count Last Ordered Date First Ordered Date sodium chloride 0.9% infusion 3 09/01/2024 08/29/2024 morphine injection 2 mg 1 08/29/2024 sodium chloride 0.9% IVPB 0-250 mL 1 2023 acetaminophen (TYLENOL) tablet 650 mg 1 bisacodyL (DULCOLAX) suppository 10 mg 1 bisacodyl EC (DULCOLAX EC) tablet 10 mg 1 1 10/29/2023 Carrier Fluids for Secondary Infusion - 0.9% Sodium Chloride 1 08/28/2024 LORazepam (ATIVAN) 1 mg in s odium chloride 0.9% (further dilution required) injection 1 08/28/2024 LORazepam (ATIVAN) 2 mg in s odium chloride 0.9% (further dilution required) injection 1 08/28/2024 LORazepam (ATIVAN) injection 1 mg 1 LORazepam (ATIVAN) injection 2 mg 1 LORazepam (ATIVAN) tablet 1 mg 1 08/28/2024 ondansetron (ZOFRAN) injection 4 mg 1 08/28 polyethylene glycol (MIRALAX) packet 17 g 1 08/28/2024 sodium chloride 0.9% flush 0.5-20 mL 1 08/04 Nursing Count Last Ordered Date First Orde red Date TELEMETRY MONITORING 1 09/02/2024 NURSING COMMUNICATION 1 08/29/2024 VERIFY INFORMED CONSENT 1 08/29/2024 Consult Count Last Ordered Date First Orde red Date IP CONSULT TO GASTROENTEROLOGY 1 08/28/2024 Isolation Count Last Ordered Date First Orde red Date INITIATE CONTACT ISOLATION 1 09/01/2024 Admission Count Last Ordered Date First Orde red Date ADMIT TO INPATIENT 1 08/28/2024 Discharge Count Last Ordered Date First Orde red Date DISCHARGE PATIENT 1 09/02/2024 CORE MEASURES Count Last Ordered Date First Ord ered Date REASON FOR NO VTE PROPHYLAXI S - HOSPITAL ADMISSION - MEDICATIONS 1 08/28/2024 Case Request Count Last Ordered Date First Orde red Date CASE REQUEST GI 2 08/31/2024 08/29/2024 documented in this encounter Additional Health Concerns Infection Onset Date Last Indicated Resolved Time C. difficile suspected 08/29/2024 08/29/202408/29 11:31 PM TRANSACTION MANAGER C. difficile suspected Comment:Stool test negative, biopsy needed 09/01/2024 09/01/2024 09/03/2024 3:[address] documented as of this encounter Care Teams Avionics Manager Relationship Specialty Start Date End Date Fernie Fulton MD [address] [place] [address] PCP - General 06/13/19 Fernie Fulton MD [address] [facility] [address] [facility] [address] [place] [id number] Internal Medicine 06/13/19 documented as of this encounter
--- OUTSIDE RECORDS SUMMARY | 2024-09-04 04:11 | XMS_ITS | Referral Summary ---
Author Organization [facility] Address [address] [place] [address] Care Team Providers Care Booking Officer Name Role Phone Fernie Fulton MD Primary Care Provider [phone] Fernie Fulton MD Unavailable [phone] Encounters Date Type Department Care Team Description 4 4:30 PM MACHINE DRILLER - 4 1:31 PM MACHINE DRILLER Hospital Encounter [address] [phone] Ping Lopez DO Dehaan, Kevin Patrick, MD Khan, Fatima A., MD Smelser, Katelyn P., MD Acute GI bleeding (Primary Dx); Colitis Discharge Disposition: Discharge to home or self care 4 10:57 AM MACHINE DRILLER Anesthesia Event [facility] [address] [place] [phone] Dean Negrete MD 4 10:45 AM MACHINE DRILLER - 4 11:15 AM MACHINE DRILLER Surgery [facility] [address] [place] [phone] Cristo Funes MD COLON BIOPSY 4 10:07 AM MACHINE DRILLER Anesthesia Event [facility] [address] [place] [phone] Terrell Jung, 4 10:00 AM MACHINE DRILLER - 4 10:30 AM MACHINE DRILLER Surgery [facility] [address] [place] [phone] Cristo Funes MD ESOPHAGOGASTRODUODENOSCOPY BIOPSY 4 Orders Only [facility] [address] [place] [phone] Madie Duran MD from Last 3 [...] hypertension 12/15/2015 Overview (12/07/2016): HTN (hypertension), benign [place] IV diagnosis 12/15/2015 Overview (12/07/2016): Psychosocial stressors Dyslipidemia 12/15/2015 Overview (12/09/2016): Mixed dyslipidemia Abnormal echocardiography 12/15/2015 Overview (12/09/2016): Abnormal stress echocardiogram Social History Tobacco Use Types Packs/Day Years Used Date Smoking Tobacco: Former Cigarettes 0 04/03/1997 - 1978 Smokeless Tobacco: Never Tobacco Cessation:Counseling Given: No Alcohol Use Standard Drinks/Week Comments Yes 0 (1 standard drink = 0.6 oz pur e alcohol) [facility] Utilities Answer Date Recorded In the past 12 months has [employer], gas, oil, or water [employer] threatened to shut off services in your home? No 09/01/2024 Social Connection and Isolation Panel [NHANES] A nswer Date Recorded In a typical week, how many times do you talk on the phone with family, friends, or neighbors? Three times a week 09/01/20 How often do you get togethe r with friends or relatives? Twice a week 09/01/2024 Attends [employer] Not on file 09/01 Active Member [...] any time in the past 12 m [facility], were you homeless or living in a long-term (including now)? No 09/01/2024 Personal Safety Answer Date Recorded Have you ever been in or are you currently in a harmful physical or emotional relationship or is someone making you feel afraid or unsafe? Denies 08/28/2024 Sex and Gender Information Value Date Recorded Sex Assigned at Not on file Legal Sex Male 3:52 AM MACHINE DRILLER Gender Identity Not on file Sexual Orientation Not on file Last Filed Vital Signs Vital Sign Reading Time Taken Comments Blood Pressure 112/64 09/02/2024 12:44 PM MACHINE DRILLER Pulse 105 09/02/2024 12:44 PM MACHINE DRILLER Temperature 36.9 ??C (98.5 ??F) 09/02/2024 1 2:44 PM MACHINE DRILLER Respiratory Rate 18 09/02/2024 12:4 4 PM MACHINE DRILLER Oxygen Saturation 98% 09/02/2024 12: 44 PM MACHINE DRILLER Inhaled Oxygen Concentration - - Weight 88.4 kg (194 lb 14.2 oz) 08/28/2024 4:30 PM MACHINE DRILLER Height 172.7 cm (5' 8 ) 08/28/2024 4:30 PM MACHINE DRILLER Body Mass Index 29.63 08/28/2024 4:30 PM MACHINE DRILLER Plan of Treatment Not on file Procedures Procedure Name Priority Date/Time Associated Diagnosis Comments EGFR Routine 09/02/2024 5:43 AM MACHINE DRILLER DIFFERENTIAL AUTO Routine 09/02/2024 5:43 AM MACHINE DRILLER MAGNESIUM Routine 09/02/2024 5:43 AM MACHINE DRILLER BASIC METABOLIC PANEL Routine 09/02/2024 5:43 AM MACHINE DRILLER CBC WITH AUTO DIFFERENTIAL Routine 09/02 5:43 AM MACHINE DRILLER SURGICAL PATHOLOGY Routine 09/01/2024 11:14 AM MACHINE DRILLER Colitis COLON BIOPSY 09/01/2024 10:57 AM MACHINE DRILLER Colitis COLONOSCOPY 09/01/2024 10:52 AM MACHINE DRILLER EGFR Routine 09/01/2024 5:45 AM MACHINE DRILLER BASIC METABOLIC PANEL Routine 09/01/2024 5:[address] ABDOMEN PELVIS W CONTRAST IP Routine 12:40 PM MACHINE DRILLER DIFFERENTIAL AUTO Routine 08/31/2024 11:59 AM MACHINE DRILLER CBC WITH AUTO DIFFERENTIAL Routine 08/31 11:59 AM MACHINE DRILLER STOOL CULTURE Routine 08/31/2024 11:59 AM MACHINE DRILLER ADD ON LAB TEST Add-On 08/31/2024 11:14 AM MACHINE DRILLER CRP (ACUTE PHASE) Routine 08/31/2024 6:01 AM MACHINE DRILLER EGFR Routine 08/31/2024 6:01 AM MACHINE DRILLER DIFFERENTIAL AUTO Routine 08/31/2024 6:01 AM MACHINE DRILLER CBC WITH AUTO DIFFERENTIAL Routine 08/31 6:01 AM MACHINE DRILLER MAGNESIUM Routine 08/31/2024 6:01 AM MACHINE DRILLER BASIC METABOLIC PANEL Routine 08/31/2024 6:01 AM MACHINE DRILLER CALCIUM, IONIZED Routine 08/30/2024 11:56 AM MACHINE DRILLER US RUQ IP Routine 08/30/2024 8:29 AM MACHINE DRILLER EGFR Routine 08/30/2024 5:23 AM MACHINE DRILLER DIFFERENTIAL AUTO Routine 08/30/2024 5:23 AM MACHINE DRILLER BASIC METABOLIC PANEL Routine 08/30/2024 5:23 AM MACHINE DRILLER CBC WITH AUTO DIFFERENTIAL Routine 08/30 5:23 AM MACHINE DRILLER C. DIFFICILE TESTING Routine 08/29/2024 11:07 PM MACHINE DRILLER HEMOGLOBIN AND HEMATOCRIT Timed 2023 1:56 PM MACHINE DRILLER SURGICAL PATHOLOGY Routine 08/29/2024 10:14 AM MACHINE DRILLER Acute GI bleeding ESOPHAGOGASTRODUODENOSCOPY BIOPSY 08/29/2024 10:04 AM MACHINE DRILLER Acute GI bleeding EGD 08/29/2024 9:54 AM MACHINE DRILLER MANUAL DIFFERENTIAL Routine 08/29/2024 6:29 AM MACHINE DRILLER EGFR Routine 08/29/2024 6:29 AM MACHINE DRILLER DIFFERENTIAL AUTO Routine 08/29/2024 6:29 AM MACHINE DRILLER MAGNESIUM Routine 08/29/2024 6:29 AM MACHINE DRILLER CBC WITH AUTO DIFFERENTIAL Routine 08/29 6:29 AM MACHINE DRILLER BASIC METABOLIC PANEL Routine 08/29/2024 6:29 AM MACHINE DRILLER TRANSFUSE RED BLOOD CELLS Timed 2023 3:22 AM MACHINE DRILLER PREPARE RBC STAT 08/29/2024 2:41 AM MACHINE DRILLER HEMOGLOBIN AND HEMATOCRIT Timed 2023 12:51 AM MACHINE DRILLER B CHECK SAMPLE STAT 08/28/2024 7:16 PM MACHINE DRILLER HEMOGLOBIN AND HEMATOCRIT STAT 2023 7:16 PM MACHINE DRILLER TYPE AND SCREEN STAT 08/28/2024 7:10 PM MACHINE DRILLER from Last 3 Months Results * eGFR (09/02/2024 5:43 AM MACHINE DRILLER) eGFR 72 >=60 mL/min/1. 73 m2 Comment: [...] last reviewed 2021. Blood 09/02/2024 5:43 AM MACHINE DRILLER 09/02/2024 6:11 AM MACHINE DRILLER us Cristo Funes MD LAB BLOOD ORDERABLE S Final Result [facility] [address] [place] [address] * (ABNORMAL) Differential, auto (09/02/2024 5:43 AM MACHINE DRILLER) Monocyte abs 1.4(H) 0.2 - 0.8 K/cumm Eosinophil abs 0.1 0.0 - 0.5 K/cumm [facility] Neutrophil pct 56.0 % [facility] Comment: Interpretive Data Percent cell count reference ranges are not reported, since discordance with absolute values may lead to misinterpretation of CBC data. Current Interpretive Data was last revised on 2017. Lymphocyte pct 16.0 % [facility] Comment: Interpretive Data Percent cell count reference ranges are not reported, since discordance with absolute values may lead to misinterpretation of CBC data. Current Interpretive Data was last revised on 2017. Monocyte pct 16.8 % [facility] Comment: Interpretive Data Percent cell count reference ranges are not reported, since discordance with absolute values may lead to misinterpretation of CBC data. Current Interpretive Data was last revised on 2017. Eosinophil pct 0.8 % [facility] Comment: Interpretive Data Percent cell count reference ranges are not reported, since discordance with absolute values may lead to misinterpretation of CBC data. Current Interpretive Data was last revised on 2017. Blood 09/02/2024 5:43 AM MACHINE DRILLER 09/02/2024 6:11 AM MACHINE DRILLER us Cristo Funes MD LAB BLOOD ORDERABLE S Final Result [facility] [address] Department [place] [address] * (ABNORMAL) CBC with auto differential (09/02/2024 5:43 AM MACHINE DRILLER) WBC 8.5 3.8 - 9.9 K/cumm Hgb 8.2(L) 13.0 - 17.5 g/dL [facility] Hct 24.9(L) 38.9 - 50.3 % [facility] Plt 228 150 - 400 K/cumm [facility] MPV 9.3 9.1 - 12.3 fL [facility] RBC 2.60(L) 4.30 - 5.80 M/cumm [facility] MCV 95.8 81.3 - 96.4 fL [facility] MCH 31.5 27.1 - 33.3 pg [facility] MCHC 32.9 32.3 - 35.7 g/dL [facility] RDW CV 15.3(H) 11.1 - 14.9 % [facility] RDW SD 53.0(H) 35.7 - 48.1 fL [facility] NRBC abs 0.15(H) 0.00 - 0.01 K/cumm [facility] Blood 09/02/2024 5:43 AM MACHINE DRILLER 09/02/2024 6:11 AM MACHINE DRILLER Cristo Funes MD LAB BLOOD ORDERABLE S Final Result Performing Organization Address City/[facility]/ZIP Co de Phone Number [facility] [address] [facility] [employer] [place], [place] [id number] * Magnesium (09/02/2024 5:43 AM MACHINE DRILLER) Pathologist [facility] Magnesium 1.6 1.4 - 2.5 mg/dL Blood 09/02/2024 5:43 AM MACHINE DRILLER 09/02/2024 6:11 AM MACHINE DRILLER Cristo Funes MD LAB BLOOD ORDERABLE S Final Result Performing Organization Address City/[facility]/ZIP Co de Phone Number [facility] [address] [facility] [place] [place] [address] * (ABNORMAL) Basic metabolic panel (09/02/2024 5:43 AM MACHINE DRILLER) Sodium 139 135 - 145 mmol/L Potassium, pl 3.1(L) 3.3 - 4.9 mmol/L [facility] Chloride 104 97 - 110 mmol/L [facility] CO2 23 22 - 32 mmol/L [facility] Anion gap 12 2 - 15 mmol/L [facility] BUN 5(L) 6 - 25 mg/dL [facility] Creatinine 1.15 0.80 - 1.30 mg/dL [facility] Glucose 112 70 - 199 mg/dL [facility] Comment: Interpretive Data Fasting glucose >/= 126 [...] 2022. Calcium 7.8(L) 8.5 - 10.3 mg/dL [facility] Blood 09/02/2024 5:43 AM MACHINE DRILLER 09/02/2024 6:11 AM MACHINE DRILLER Cristo Funes MD LAB BLOOD ORDERABLE S Final Result Performing Organization Address City/State/[facility] Co de Phone Number [facility] [address] [facility] [facility] Department [place] [address] * Surgical pathology (09/01/2024 11:14 AM MACHINE DRILLER) Tissue (Colon, Biopsy) 09/01/2024 11:14 AM MACHINE DRILLER Comment:For colitis Tissue (Colon, Biopsy) 09/01/2024 11:15 AM MACHINE DRILLER Comment:For colitis Narrative PATHOLOGY [facility] - 09/02/2024 8:16 AM MACHINE DRILLER [place] [id number] [place], [place] ??[address] Tele: ?? Dara Paz MD - Vocational Rehab Consultant Note to Patients: This report may contain [...] REPORT Patient Name: ??JONES SANABRIA Address: ??[address] [place], [place] ??[address] Gender: ??M : ??1965 (Age: 59) Service: ??Cardiology Location: ??[id number], ?? Hospital #: ??[id number] Patient Type: ??[facility] Accession #: ? [id number] Taken: ? 09/01/2024 Received ? 09/01/2024 Reported: ? 09/02/2024 Physician(s): ? Awa Reed M.D. DIAGNOSIS: Large intestine, right colon, biopsy: ? - Mild active colitis with acute inflammatory exudate (see comment) Large intestine, left colon, biopsy: ? - Mild active colitis with acute inflammatory exudate [facility]/09/02/2024 08:16 Examining Pathologist: Karine Crabtree M.D. Report [...] architecture is maintained. Clerical Data Follows A; [id number] B; [id number] REPORT IMAGES AND/OR SCANNED DOCUMENTS ONLY VIEWABLE IN PDF FORMAT The immunohistochemical test(s) cited in this report, if any, was developed and its performance characteristics determined by [facility]. ??It has not been cleared or approved by the U.S. Food and Drug Administration. ??The FDA has determined that such clearance or approval is not necessary. ??This test is used for clinical purposes. ??It should not be regarded as investigational or for research. ??[facility] is certified under the Clinical Laboratory [...] part or completely in the following laboratories: [facility], [facility], [place] [address] [facility], [address] [place] [address], [place] [address]. Cristo Funes MD LAB PATHOLOGY ORDER HOLA Final Result PATHOLOGY [facility] Laboratory Receiving [address] [place] [address] * Colonoscopy (09/01/2024 10:52 AM MACHINE DRILLER) Anatomical Region Laterality Modality Other Narrative Procedure Note Cristo Funes MD - 09/01/2024 10:52 AM CST ENDOSCOPY LAB Patient Name: Jones Hernandezaviscalvin Procedure Date: 09/01/2024 10:52AM Admit Type: Inpatient Room: [facility] Date of : 1965 Instrument [...] Final Result * eGFR (09/01/2024 5:45 AM MACHINE DRILLER) eGFR 82 >=60 mL/min/1. 73 m2 Comment: [...] last reviewed 2021. Blood 09/01/2024 5:45 AM MACHINE DRILLER 09/01/2024 6:26 AM MACHINE DRILLER us Cayden Smiley MD LAB BLOOD ORDERABLES Final Res ult [facility] [address] Department [place] [address] * (ABNORMAL) Basic metabolic panel (09/01/2024 5:45 AM MACHINE DRILLER) Pathologist [facility] Sodium 137 135 - 145 mmol/L Potassium, pl 3.2(L) 3.3 - 4.9 mmol/L [facility] Chloride 100 97 - 110 mmol/L [facility] CO2 24 22 - 32 mmol/L [facility] Anion gap 13 2 - 15 mmol/L [facility] BUN 7 6 - 25 mg/dL [facility] Creatinine 1.04 0.80 - 1.30 mg/dL [facility] Glucose 128 70 - 199 mg/dL [facility] Comment: Interpretive Data Fasting glucose >/= 126 [...] 2022. Calcium 8.0(L) 8.5 - 10.3 mg/dL [facility] Blood 09/01/2024 5:45 AM MACHINE DRILLER 09/01/2024 6:26 AM MACHINE DRILLER us Cayden Smiley MD LAB BLOOD ORDERABLES Final Res ult [facility] [address] Department [place] [address] * CT Abdomen Pelvis W Contrast (08/31/2024 12:40 PM MACHINE DRILLER) Anatomical Region Laterality Modality Body N/A Computed Tomogra phy 08/31/2024 4:39 PM MACHINE DRILLER Impressions 08/31/2024 4:39 PM MACHINE DRILLER 1. ??Diffuse pancolitis, likely infectious/inflammatory. 2. ??Circumferential urinary bladder wall thickening, which may represent reactive changes or superimposed cystitis. ??Mural thickening is exaggerated by degree of decompression. Electronically signed by: Dejan Chino D.O. Narrative 08/31/2024 4:39 PM MACHINE DRILLER EXAMINATION: CT ABDOMEN PELVIS W CONTRAST HISTORY: [...] * (ABNORMAL) Differential, auto (08/31/2024 11:59 AM MACHINE DRILLER) Neutrophil abs 6.3 1.5 - 6.5 K/cumm Imm gran abs 0.4(H) 0.0 - 0.1 K/cumm [facility] Lymphocyte abs 1.0 0.8 - 3.3 K/cumm [facility] Monocyte abs 1.6(H) 0.2 - 0.8 K/cumm [facility] Eosinophil abs 0.0 0.0 - 0.5 K/cumm [facility] Basophil abs 0.0 0.0 - 0.1 K/cumm [facility] Neutrophil pct 67.2 % [facility] Comment: Interpretive Data Percent cell count reference ranges are not reported, since discordance with absolute values may lead to misinterpretation of CBC data. Current Interpretive Data was last revised on 2017. Imm gran pct 4.2 % [facility] Comment: Interpretive Data Percent cell count reference ranges are not reported, since discordance with absolute values may lead to misinterpretation of CBC data. Current Interpretive Data was last revised on 2017. Lymphocyte pct 10.5 % [facility] Comment: Interpretive Data Percent cell count reference ranges are not reported, since discordance with absolute values may lead to misinterpretation of CBC data. Current Interpretive Data was last revised on 2017. Monocyte pct 17.4 % [facility] Comment: Interpretive Data Percent cell count reference ranges are not reported, since discordance with absolute values may lead to misinterpretation of CBC data. Current Interpretive Data was last revised on 2017. Eosinophil pct 0.3 % [facility] Comment: Interpretive Data Percent cell count reference ranges are not reported, since discordance with absolute values may lead to misinterpretation of CBC data. Current Interpretive Data was last revised on 2017. Basophil pct 0.4 % [facility] Comment: Interpretive Data Percent cell count reference ranges are not reported, since discordance with absolute values may lead to misinterpretation of CBC data. Current Interpretive Data was last revised on 2017. Blood 08/31/2024 11:5 9 AM MACHINE DRILLER 08/31/2024 11:59 AM MACHINE DRILLER us Cayden Smiley MD LAB BLOOD ORDERABLES Final Res ult [facility] [address] Department [place] [address] * (ABNORMAL) CBC with auto differential (08/31/2024 11:59 AM MACHINE DRILLER) WBC 9.3 3.8 - 9.9 K/cumm Hgb 9.7(L) 13.0 - 17.5 g/dL [facility] Hct 28.5(L) 38.9 - 50.3 % [facility] Plt 165 150 - 400 K/cumm [facility] MPV 10.0 9.1 - 12.3 fL [facility] RBC 2.98(L) 4.30 - 5.80 M/cumm [facility] MCV 95.6 81.3 - 96.4 fL [facility] MCH 32.6 27.1 - 33.3 pg [facility] MCHC 34.0 32.3 - 35.7 g/dL [facility] RDW CV 15.0(H) 11.1 - 14.9 % [facility] RDW SD 51.8(H) 35.7 - 48.1 fL [facility] NRBC abs 0.09(H) 0.00 - 0.01 K/cumm [facility] Blood 08/31/2024 11:5 9 AM MACHINE DRILLER 08/31/2024 12:11 PM MACHINE DRILLER Cayden Smiley MD LAB BLOOD ORDERABLES Final Res ult Performing Organization Address City/[facility]/ZIP Co de Phone Number [facility] [address] Department of [employer] [place], [place] [id number] * Stool culture Stool Rectum (08/31/2024 11:59 AM MACHINE DRILLER) Pathologist [facility] Direct Specimen Exam Shiga Toxin Testing: Negative for: Shigatoxin of enterohemorrhagic E.coli. Report Final Report: No Salmonella, Shigella, Aeromonas, Plesiomonas, Yersinia, Campylobacter, or E.coli O157:H7 isolated [facility] Stool (Rectum) 08/31/2024 11 :59 AM MACHINE DRILLER 08/31/2024 3:13 PM MACHINE DRILLER Narrative [facility] - 09/03/2024 2:00 PM MACHINE DRILLER This specimen is screened for the presence of Aeromonas, Campylobacter, E.coli-0157:H7, Plesiomonas, Salmonella, Shigella, Shiga Toxin producing E. coli, and Yersinia. Ai NARAYAN LAB MICROBIOLOGY - GENERAL OR DERABLES Final Result Performing Organization Address [facility] Co de Phone Number [facility] [address] Department [employer] [place], [place] [id number] * CRP - Add on lab test (08/31/2024 11:14 AM MACHINE DRILLER) Pathologist [facility] Acceptable Yes Blood 08/31/2024 11:1 4 AM MACHINE DRILLER 08/31/2024 11:14 AM MACHINE DRILLER Narrative [facility] - 08/31/2024 11:14 AM MACHINE DRILLER Name of Test->CRP Ai NARAYAN LAB BLOOD ORDERABLES Final Re sult Performing Organization Address [facility] Co de Phone Number [facility] [address] Department [employer] [place], [place] [id number] * eGFR (08/31/2024 6:01 AM MACHINE DRILLER) Pathologist [facility] eGFR 89 >=60 mL/min/1. 73 m2 Comment: [...] last reviewed 2021. Blood 08/31/2024 6:01 AM MACHINE DRILLER 08/31/2024 7:08 AM MACHINE DRILLER us Cayden Smiley MD LAB BLOOD ORDERABLES Final Res ult [facility] [address] Department [place] [address] * (ABNORMAL) Differential, auto (08/31/2024 6:01 AM MACHINE DRILLER) Neutrophil abs 8.4(H) 1.5 - 6.5 K/cumm Imm gran abs 0.3(H) 0.0 - 0.1 K/cumm [facility] Lymphocyte abs 1.3 0.8 - 3.3 K/cumm [facility] Monocyte abs 2.0(H) 0.2 - 0.8 K/cumm [facility] Eosinophil abs 0.0 0.0 - 0.5 K/cumm [facility] Basophil abs 0.1 0.0 - 0.1 K/cumm [facility] Neutrophil pct 69.4 % [facility] Comment: Interpretive Data Percent cell count reference ranges are not reported, since discordance with absolute values may lead to misinterpretation of CBC data. Current Interpretive Data was last revised on 2017. Imm gran pct 2.3 % [facility] Comment: Interpretive Data Percent cell count reference ranges are not reported, since discordance with absolute values may lead to misinterpretation of CBC data. Current Interpretive Data was last revised on 2017. Lymphocyte pct 10.7 % [facility] Comment: Interpretive Data Percent cell count reference ranges are not reported, since discordance with absolute values may lead to misinterpretation of CBC data. Current Interpretive Data was last revised on 2017. Monocyte pct 16.6 % [facility] Comment: Interpretive Data Percent cell count reference ranges are not reported, since discordance with absolute values may lead to misinterpretation of CBC data. Current Interpretive Data was last revised on 2017. Eosinophil pct 0.3 % [facility] Comment: Interpretive Data Percent cell count reference ranges are not reported, since discordance with absolute values may lead to misinterpretation of CBC data. Current Interpretive Data was last revised on 2017. Basophil pct 0.7 % [facility] Comment: Interpretive Data Percent cell count reference ranges are not reported, since discordance with absolute values may lead to misinterpretation of CBC data. Current Interpretive Data was last revised on 2017. Blood 08/31/2024 6:01 AM MACHINE DRILLER 08/31/2024 7:08 AM MACHINE DRILLER us Cayden Smiley MD LAB BLOOD ORDERABLES Final Res ult [facility] [address] Department [place] [address] * (ABNORMAL) CBC with auto differential (08/31/2024 6:01 AM MACHINE DRILLER) WBC 12.1(H) 3.8 - 9.9 K/cumm Hgb 10.5(L) 13.0 - 17.5 g/dL [facility] Comment:Hemoglobin delta due to apparent blood transfusion. Hct 31.2(L) 38.9 - 50.3 % [facility] Plt 149(L) 150 - 400 K/cumm [facility] MPV 10.6 9.1 - 12.3 fL [facility] RBC 3.24(L) 4.30 - 5.80 M/cumm [facility] MCV 96.3 81.3 - 96.4 fL [facility] MCH 32.4 27.1 - 33.3 pg [facility] MCHC 33.7 32.3 - 35.7 g/dL [facility] RDW CV 15.0(H) 11.1 - 14.9 % [facility] RDW SD 51.6(H) 35.7 - 48.1 fL [facility] NRBC abs 0.15(H) 0.00 - 0.01 K/cumm [facility] Blood 08/31/2024 6:01 AM MACHINE DRILLER 08/31/2024 7:08 AM MACHINE DRILLER us Cayden Smiley MD LAB BLOOD ORDERABLES Final Res ult Performing Organization Address City/[facility] Co de Phone Number [facility] [address] [place] [address] * (ABNORMAL) CRP (acute phase) (08/31/2024 6:01 AM MACHINE DRILLER) CRP 85.5(H) <=10.0 mg/L Blood 08/31/2024 6:01 AM MACHINE DRILLER 08/31/2024 7:08 AM MACHINE DRILLER us Cayden Smiley MD LAB BLOOD ORDERABLES Final Res ult Performing Organization Address City/State/[facility] Co de Phone Number [facility] [facility] [address] Department [place] [address] * Magnesium (08/31/2024 6:01 AM MACHINE DRILLER) Magnesium 1.6 1.4 - 2.5 mg/dL Blood 08/31/2024 6:01 AM MACHINE DRILLER 08/31/2024 7:08 AM MACHINE DRILLER Cayden Smiley MD LAB BLOOD ORDERABLES Final Res ult Performing Organization Address City/[facility]/ZIP Co de Phone Number [facility] [address] [place] [address] * Basic metabolic panel (08/31/2024 6:01 AM MACHINE DRILLER) Pathologist [facility] [place] Sodium 136 135 - 145 mmol/L Potassium, pl 3.5 3.3 - 4.9 mmol/L [facility] Chloride 100 97 - 110 mmol/L [facility] CO2 25 22 - 32 mmol/L [facility] Anion gap 11 2 - 15 mmol/L [facility] BUN 10 6 - 25 mg/dL [facility] Creatinine 0.97 0.80 - 1.30 mg/dL [facility] Glucose 132 70 - 199 mg/dL [facility] Comment: Interpretive Data Fasting glucose >/= 126 [...] 2022. Calcium 8.6 8.5 - 10.3 mg/dL [facility] Blood 08/31/2024 6:01 AM MACHINE DRILLER 08/31/2024 7:08 AM MACHINE DRILLER Cayden Smiley MD LAB BLOOD ORDERABLES Final Res ult Performing Organization Address City/[facility]/ZIP Co de Phone Number [facility] [address] [place] [address] * (ABNORMAL) Calcium, ionized (08/30/2024 11:56 AM MACHINE DRILLER) Calcium, Ionized 3.61(L) 4.50 - 5.10 mg/dL Blood 08/30/2024 11:5 6 AM MACHINE DRILLER 08/30/2024 11:57 AM MACHINE DRILLER us Cayden Smiley MD LAB BLOOD ORDERABLES Final Res ult [facility] [address] Department [place] [address] * US RUQ (08/30/2024 8:29 AM MACHINE DRILLER) Anatomical Region Laterality Modality Abdomen N/A Ultrasound 08/30/2024 8:36 AM MACHINE DRILLER Impressions 08/30/2024 8:36 AM MACHINE DRILLER 1. Increased hepatic echogenicity consistent with hepatic steatosis. 2. ??Gallbladder containing stones and sludge without evidence of acute cholecystitis. Electronically signed by: Dean Pichardo M.D. Narrative 08/30/2024 8:36 AM MACHINE DRILLER EXAMINATION: ??LIMITED ABDOMINAL SONOGRAM HISTORY: ??Concern for [...] by: Dean Pichardo M.D. Cristo Funes MD [facility] US PROCEDURES F inal Result * eGFR (08/30/2024 5:23 AM MACHINE DRILLER) eGFR 83 >=60 mL/min/1. 73 m2 Comment: [...] last reviewed 2021. Blood 08/30/2024 5:23 AM MACHINE DRILLER 08/30/2024 6:41 AM MACHINE DRILLER us Cayden Smiley MD LAB BLOOD ORDERABLES Final Res ult [facility] [address] [place] [address] * (ABNORMAL) Differential, auto (08/30/2024 5:23 AM MACHINE DRILLER) Neutrophil abs 6.2 1.5 - 6.5 K/cumm Imm gran abs 0.1 0.0 - 0.1 K/cumm [facility] Lymphocyte abs 1.0 0.8 - 3.3 K/cumm [facility] Monocyte abs 1.0(H) 0.2 - 0.8 K/cumm [facility] Eosinophil abs 0.0 0.0 - 0.5 K/cumm [facility] Basophil abs 0.0 0.0 - 0.1 K/cumm [facility] Neutrophil pct 74.3 % [facility] Comment: Interpretive Data Percent cell count reference ranges are not reported, since discordance with absolute values may lead to misinterpretation of CBC data. Current Interpretive Data was last revised on 2017. Imm gran pct 1.1 % [facility] Comment: Interpretive Data Percent cell count reference ranges are not reported, since discordance with absolute values may lead to misinterpretation of CBC data. Current Interpretive Data was last revised on 2017. Lymphocyte pct 11.6 % [facility] Comment: Interpretive Data Percent cell count reference ranges are not reported, since discordance with absolute values may lead to misinterpretation of CBC data. Current Interpretive Data was last revised on 2017. Monocyte pct 12.4 % [facility] Comment: Interpretive Data Percent cell count reference ranges are not reported, since discordance with absolute values may lead to misinterpretation of CBC data. Current Interpretive Data was last revised on 2017. Eosinophil pct 0.4 % [facility] Comment: Interpretive Data Percent cell count reference ranges are not reported, since discordance with absolute values may lead to misinterpretation of CBC data. Current Interpretive Data was last revised on 2017. Basophil pct 0.2 % [facility] Comment: Interpretive Data Percent cell count reference ranges are not reported, since discordance with absolute values may lead to misinterpretation of CBC data. Current Interpretive Data was last revised on 2017. Blood 08/30/2024 5:23 AM MACHINE DRILLER 08/30/2024 6:42 AM MACHINE DRILLER us Cayden Smiley MD LAB BLOOD ORDERABLES Final Res ult [facility] [address] Department [place] [address] * (ABNORMAL) CBC with auto differential (08/30/2024 5:23 AM MACHINE DRILLER) WBC 8.4 3.8 - 9.9 K/cumm Hgb 7.8(L) 13.0 - 17.5 g/dL [facility] Hct 23.3(L) 38.9 - 50.3 % [facility] Plt 74(L) 150 - 400 K/cumm [facility] MPV 10.9 9.1 - 12.3 fL [facility] RBC 2.39(L) 4.30 - 5.80 M/cumm [facility] MCV 97.5(H) 81.3 - 96.4 fL [facility] MCH 32.6 27.1 - 33.3 pg [facility] MCHC 33.5 32.3 - 35.7 g/dL [facility] RDW CV 15.8(H) 11.1 - 14.9 % [facility] RDW SD 54.4(H) 35.7 - 48.1 fL [facility] NRBC abs 0.12(H) 0.00 - 0.01 K/cumm [facility] Blood 08/30/2024 5:23 AM MACHINE DRILLER 08/30/2024 6:42 AM MACHINE DRILLER Cayden Smiley MD LAB BLOOD ORDERABLES Final Res ult Performing Organization Address City/[facility]/ZIP Co de Phone Number [facility] [address] Department [place] [address] * (ABNORMAL) Basic metabolic panel (08/30/2024 5:23 AM MACHINE DRILLER) Sodium 134(L) 135 - 145 mmol/L Potassium, pl 2.9(L) 3.3 - 4.9 mmol/L [facility] Chloride 97 97 - 110 mmol/L [facility] CO2 27 22 - 32 mmol/L [facility] Anion gap 10 2 - 15 mmol/L [facility] BUN 22 6 - 25 mg/dL [facility] Creatinine 1.03 0.80 - 1.30 mg/dL [facility] Glucose 106 70 - 199 mg/dL [facility] Comment: Interpretive Data Fasting glucose >/= 126 [...] 2022. Calcium 7.5(L) 8.5 - 10.3 mg/dL [facility] Blood 08/30/2024 5:23 AM MACHINE DRILLER 08/30/2024 6:41 AM MACHINE DRILLER us Cayden Smiley MD LAB BLOOD ORDERABLES Final Res ult Performing Organization Address City/[facility]/ZIP Co de Phone Number [facility] [address] Department [place] [address] * C. difficile testing Stool (08/29/2024 11:07 PM MACHINE DRILLER) GDH Result Positive Negative Toxin Result Negative Negative [facility] C. diff result Negative, free toxin. Negative, free toxin [facility] C. diff interp GDH+/toxin- results almost never represent true C. difficile infection (CDI). Results may represent ??colonization with C. difficile without CDI, detection of a bacteria other than toxigenic C. difficile, or a false negative toxin assay. If there is a high index of suspicion for CDI, additional testing by PCR is available upon request. [facility] Stool 08/29/2024 11:0 7 PM MACHINE DRILLER 08/29/2024 11:07 PM MACHINE DRILLER Kelby Gore MD LAB MICROBIOLOGY - GENERAL ORDER HOLA Final Result [facility] [address] Department [employer] [place], [place] [id number] * (ABNORMAL) Hemoglobin and hematocrit (08/29/2024 1:56 PM MACHINE DRILLER) Hgb 8.3(L) 13.0 - 17.5 g/dL Hct 24.5(L) 38.9 - 50.3 % [facility] Blood 08/29/2024 1:56 PM MACHINE DRILLER 08/29/2024 2:03 PM MACHINE DRILLER Cristo Funes MD LAB BLOOD ORDERABLE S Final Result Performing Organization Address City/[facility] Co de Phone Number [facility] [address] Department [place] [address] * Surgical pathology (08/29/2024 10:14 AM MACHINE DRILLER) Tissue (Esophageal biopsy) 08/29/2024 10:14 AM MACHINE DRILLER Narrative PATHOLOGY [facility] - 09/02/2024 8:13 AM MACHINE DRILLER [place] [id number] [place], [place] ??[address] Tele: ?? Dara Paz MD - Vocational Rehab Consultant Note to Patients: This report may contain [...] REPORT Patient Name: ??JONES SANABRIA Address: ??[address] [place], [place] ??[address] Gender: ??M : ??1965 (Age: 59) Service: ??Cardiology Location: ??[id number], ?? Hospital #: ??[id number] Patient Type: ??[facility]IENT Accession #: ? [id number] Taken: ? 08/29/2024 Received ? 08/29/2024 Reported: [...] features are evident. Clerical Data Follows A; [id number], [id number], [id number], [id number] REPORT IMAGES AND/OR SCANNED DOCUMENTS ONLY VIEWABLE IN PDF FORMAT The immunohistochemical test(s) cited in this report, if any, was developed and its performance characteristics determined by [facility] Pathology Department. ??It has not been cleared or approved by the U.S. Food and Drug Administration. ??The FDA has determined that such clearance or approval is not necessary. ??This test is used for clinical purposes. ??It should not be regarded as investigational or for research. ??[facility] is certified under the Clinical Laboratory [...] part or completely in the following laboratories: [facility], [facility], [address] [place] [address]. Cristo Funes MD LAB PATHOLOGY ORDER HOLA Final Result PATHOLOGY [facility] Laboratory Receiving [address] [place] [address] * EGD (08/29/2024 9:54 AM MACHINE DRILLER) Anatomical Region Laterality Modality Other Narrative Procedure Note Crisot Funes MD - 08/29/2024 9:54 AM CST ENDOSCOPY LAB Patient Name: Jones Sanabria Procedure Date: 08/29/2024 9:54 AM Admit Type: Inpatient Room: [facility] Date of : 1965 Instrument Name: [...] Result * Transfuse RBC (08/29/2024 7:52 AM MACHINE DRILLER) Blood Kelby Gore MD BLOOD TRANSFUSION ORDERABLES Fin al Result [facility] [address] Department [place] [address] * (ABNORMAL) eGFR (08/29/2024 6:29 AM MACHINE DRILLER) eGFR 59(L) >=60 mL/min/1. 73 m2 Comment: [...] last reviewed 2021. Blood 08/29/2024 6:29 AM MACHINE DRILLER 08/29/2024 6:43 AM MACHINE DRILLER Scott Brantley MD LAB BLOOD ORDERABLES Fin al Result [facility] [address] Department [place] [address] * (ABNORMAL) Differential, auto (08/29/2024 6:29 AM MACHINE DRILLER) Neutrophil abs 7.4(H) 1.5 - 6.5 K/cumm Imm gran abs 0.1 0.0 - 0.1 K/cumm [facility] Lymphocyte abs 0.9 0.8 - 3.3 K/cumm [facility] Monocyte abs 1.1(H) 0.2 - 0.8 K/cumm [facility] Eosinophil abs 0.0 0.0 - 0.5 K/cumm [facility] Basophil abs 0.0 0.0 - 0.1 K/cumm [facility] Neutrophil pct 77.8 % [facility] Comment: Interpretive Data Percent cell count reference ranges are not reported, since discordance with absolute values may lead to misinterpretation of CBC data. Current Interpretive Data was last revised on 2017. Imm gran pct 0.8 % [facility] Comment: Interpretive Data Percent cell count reference ranges are not reported, since discordance with absolute values may lead to misinterpretation of CBC data. Current Interpretive Data was last revised on 2017. Lymphocyte pct 9.4 % [facility] Comment: Interpretive Data Percent cell count reference ranges are not reported, since discordance with absolute values may lead to misinterpretation of CBC data. Current Interpretive Data was last revised on 2017. Monocyte pct 11.6 % [facility] Comment: Interpretive Data Percent cell count reference ranges are not reported, since discordance with absolute values may lead to misinterpretation of CBC data. Current Interpretive Data was last revised on 2017. Eosinophil pct 0.2 % [facility] Comment: Interpretive Data Percent cell count reference ranges are not reported, since discordance with absolute values may lead to misinterpretation of CBC data. Current Interpretive Data was last revised on 2017. Basophil pct 0.2 % [facility] Comment: Interpretive Data Percent cell count reference ranges are not reported, since discordance with absolute values may lead to misinterpretation of CBC data. Current Interpretive Data was last revised on 2017. Blood 08/29/2024 6:29 AM MACHINE DRILLER 08/29/2024 6:41 AM MACHINE DRILLER Scott Brantley MD LAB BLOOD ORDERABLES Fin al Result [facility] [address] Department [place] [address] * (ABNORMAL) CBC with auto differential (08/29/2024 6:29 AM MACHINE DRILLER) WBC 9.5 3.8 - 9.9 K/cumm Hgb 8.0(L) 13.0 - 17.5 g/dL [facility] Hct 23.8(L) 38.9 - 50.3 % [facility] Plt 58(L) 150 - 400 K/cumm [facility] MPV 10.9 9.1 - 12.3 fL [facility] RBC 2.44(L) 4.30 - 5.80 M/cumm [facility] MCV 97.5(H) 81.3 - 96.4 fL [facility] MCH 32.8 27.1 - 33.3 pg [facility] MCHC 33.6 32.3 - 35.7 g/dL [facility] RDW CV 15.3(H) 11.1 - 14.9 % [facility] RDW SD 52.5(H) 35.7 - 48.1 fL [facility] NRBC abs 0.13(H) 0.00 - 0.01 K/cumm [facility] Blood 08/29/2024 6:29 AM MACHINE DRILLER 08/29/2024 6:41 AM MACHINE DRILLER Scott Brantley MD LAB BLOOD ORDERABLES Fin al Result Performing Organization Address [facility] de Phone Number [facility] [address] Department [place] [address] * (ABNORMAL) Manual Differential (08/29/2024 6:29 AM MACHINE DRILLER) Differential Auto RBC morphology Normal [facility] Platelet estimate Decreased(A ) [facility] Morphology scrn See Comment [facility] Comment:PLT: Platelet morpho logy normal Blood 08/29/2024 6:29 AM MACHINE DRILLER 08/29/2024 6:41 AM MACHINE DRILLER Scott Brantley MD LAB BLOOD ORDERABLES Fin al Result Performing Organization Address [facility] Co de Phone Number [facility] [address] Department [place] [address] * Magnesium (08/29/2024 6:29 AM MACHINE DRILLER) Magnesium 1.8 1.4 - 2.5 mg/dL Blood 08/29/2024 6:29 AM MACHINE DRILLER 08/29/2024 6:43 AM MACHINE DRILLER Roman Wells NP LAB BLOOD ORDERABLES Final Result [facility] [address] Department [place] [address] * (ABNORMAL) Basic metabolic panel (08/29/2024 6:29 AM MACHINE DRILLER) Pathologist [facility] [place] Sodium 138 135 - 145 mmol/L Potassium, pl 3.4 3.3 - 4.9 mmol/L [facility] Chloride 99 97 - 110 mmol/L [facility] CO2 28 22 - 32 mmol/L [facility] Anion gap 11 2 - 15 mmol/L [facility] BUN 34(H) 6 - 25 mg/dL [facility] Creatinine 1.37(H) 0.80 - 1.30 mg/dL [facility] Glucose 141 70 - 199 mg/dL [facility] Comment: Interpretive Data Fasting glucose >/= 126 [...] 2022. Calcium 7.4(L) 8.5 - 10.3 mg/dL [facility] Blood 08/29/2024 6:29 AM MACHINE DRILLER 08/29/2024 6:43 AM MACHINE DRILLER us Scott Brantley MD LAB BLOOD ORDERABLES Fin al Result [facility] [address] Department [place] [address] * Prepare RBC (08/29/2024 2:41 AM MACHINE DRILLER) Product code [id number] Unit Number [id number] [facility] Product Blood Type BPOS [facility] Dispense Status PRESUMED TRANSFUSED [facility] Blood 08/29/2024 2:41 AM MACHINE DRILLER 08/29/2024 2:40 AM MACHINE DRILLER Scott Brantley MD BLOOD BANK PRODUCT ORDER HOLA Final Result Performing Organization Address [facility] Co de Phone Number [facility] [address] [employer] [place] [place] [address] * (ABNORMAL) Hemoglobin and hematocrit (08/29/2024 12:51 AM MACHINE DRILLER) Hgb 7.3(L) 13.0 - 17.5 g/dL Hct 22.7(L) 38.9 - 50.3 % [facility] Blood 08/29/2024 12:5 1 AM MACHINE DRILLER 08/29/2024 12:51 AM MACHINE DRILLER Cristo Funes MD LAB BLOOD ORDERABLE S Final Result Performing Organization Address [facility] Co de Phone Number [facility] [address] Department [place] [address] * Check Sample (08/28/2024 7:16 PM MACHINE DRILLER) ABO Rh B Positive MBC HCLL OTHER 08/28/2024 7:16 PM MACHINE DRILLER 08/28/2024 8:04 PM MACHINE DRILLER Scott Brantley MD LAB BLOOD ORDERABLES Fin al Result Performing Organization Address [facility] Co de Phone Number [facility] [address] [facility] [employer] [place] [address] MBC * (ABNORMAL) Hemoglobin and hematocrit (08/28/2024 7:16 PM MACHINE DRILLER) Hgb 8.6(L) 13.0 - 17.5 g/dL Hct 26.0(L) 38.9 - 50.3 % [facility] Blood 08/28/2024 7:16 PM MACHINE DRILLER 08/28/2024 7:16 PM MACHINE DRILLER Roman Wells NP LAB BLOOD ORDERABLES Final Result Performing Organization Address [facility]/State/ZIP Co de Phone Number [facility] [address] Department of Laboratories [place], [place] [id number] * Type and screen (08/28/2024 7:10 PM MACHINE DRILLER) ABO Rh B Positive Elvin, indirect Negative [facility] Blood 08/28/2024 7:10 PM MACHINE DRILLER 08/28/2024 7:21 PM MACHINE DRILLER Narrative [facility] - 08/28/2024 7:59 PM MACHINE DRILLER If not done within 72 hours prior to infusion. Has the patient had Daratumumab or Isatuximab in the past 6 months?->Unknown Scott Brantley MD LAB BLOOD BANK TEST ORDE RABLES Final Result Performing Organization Address [facility] Co de Phone Number [facility] [address] [place] [address] from Last 3 Months Insurance [place] For more information, please contact: [phone] * Full Code (Latest Code Status on File) Date Activated Date Inactivated Comments 08/28/2024 5:56 PM 09/02/2024 5:31 PM Care Teams Booking Officer Relationship Specialty Start Date End Date Kopjas, Fernie C., MD [address] [place] [address] PCP - General 06/13/19 Fernie Fulton MD [address] [place] [address] Internal Medicine 06/13/19
== END 2024-08-28 15:41 | disposition short-term general hospital (02) ==
PROVIDERS: Emergency Medicine; Emergency Provider Emergency Medicine; PCP Internal Medicine
DX: K92.2 Gastrointestinal hemorrhage, unspecified (principal); I10 Essential (primary) hypertension; E78.5 Hyperlipidemia, unspecified; E55.9 Vitamin D deficiency, unspecified; N40.0 Benign prostatic hyperplasia without lower urinary tract symptoms; K22.70 Barrett's esophagus without dysplasia; D50.9 Iron deficiency anemia, unspecified; G62.9 Polyneuropathy, unspecified; F32.A Depression, unspecified; F41.9 Anxiety disorder, unspecified; Z86.16 Personal history of COVID-19; Z87.891 Personal history of nicotine dependence; Z98.42 Cataract extraction status, left eye; Z98.41 Cataract extraction status, right eye; R94.31 Abnormal electrocardiogram [ECG] [EKG]; I47.19 Other supraventricular tachycardia
CPT/HCPCS: 36415; 80053; 81001; 82077; 83880; 84484; 85014; 85018; 85025; 85055; 85610; 85730; 86850; 86900; 86901; 93005; 96361; 96365; 96375; 96376; 99285; J0696; J0780; J1171; J2060; J2270; J2354; J2405; J2470; J7030; J7040

== ENCOUNTER 2024-09-22 10:12 | Outpatient (CLI) | payer BC, SELFPAY ==
[2024-09-22 10:28] LABS: Basophils Percent Auto 0.4 % (0.2-1.2); Eosinophils Absolute Auto 0.3 K/mm3 (0-0.3); Eosinophils Percent Auto 4.3 % (0-4.4); Hematocrit 33.5 % (42.0-52.0); Hemoglobin 10.3 g/dL (14.0-18.0); Immature Granulocyte Absolute 0.02 K/mm3 (0.00-0.031); Immature Granulocyte Percent A 0.3 % (0-0.5); Lymphocytes Absolute Auto 1.28 K/mm3 (0.9-3.2); Lymphocytes Percent Auto 19.1 % (18.3-44.2); Mean Corpuscular HGB Conc 30.7 g/dl (32-36); Mean Corpuscular Hemoglobin 27.5 pg (26-34); Mean Corpuscular Volume 89.3 fl (80-100); Monocytes Absolute Auto 0.7 K/mm3 (0.1-0.6); Monocytes Percent Auto 10.7 % (2.6-8.5); Neutrophils Absolute Auto 4.4 K/mm3 (1.3-6.7); Neutrophils Percent Auto 65.2 % (45.5-73.1); Platelet Count Result 220 k/mm3 (150-375); Red Blood Count 3.75 M/mm3 (4.6-6.20); Red Cell Distribution Width 16.7 % (11.5-14.5); White Blood Count 6.7 K/mm3 (4.5-10.0)
[2024-09-22 10:45] LABS: Anion Gap 8 mmol/L (4-12); Blood Urea Nitrogen 16 mg/dL (9-20); Calcium 9.8 mg/dL (8.4-10.2); Carbon Dioxide 27 mmol/L (22-30); Chloride 104 mmol/L (98-107); Estimated Glomerular Filt Rate > 60; Glucose 102 mg/dL (65-110); Potassium 4.5 mmol/L (3.4-5.0); Sodium 139 mmol/L (137-145)
[2024-09-22 11:06] LABS: Iron 37 ug/dL (49-181)
[2024-09-22 11:15] LABS: Percent Iron Saturation 8 % (20-50); Prostate Specific Antigen 1.2 ng/mL (< OR = 4.0)
[2024-09-22 11:41] LABS: Ferritin 9.77 ng/mL (11.1-264)
== END 2024-09-22 10:13 | disposition home or self-care (01) ==
LOC: ANHLAB 10:13
PROVIDERS: PCP Internal Medicine; Visit Provider Internal Medicine
DX: D64.9 Anemia, unspecified (principal); A04.72 Enterocolitis due to Clostridium difficile, not specified as recurrent; Z79.899 Other long term (current) drug therapy; Z12.5 Encounter for screening for malignant neoplasm of prostate; I10 Essential (primary) hypertension
CPT/HCPCS: 36415; 80048; 82728; 83540; 83550; 84153; 85025; G0103

== ENCOUNTER 2024-10-16 14:49 | Outpatient (CLI) | payer BC, SELFPAY ==
--- OUTSIDE RECORDS SUMMARY | 2024-10-16 14:53 | XMS_ITS | Clinical Summary ---
Author Organization [facility] Address [address] [place] [address] Care Team Providers Care Appliance Servicer Name Role Phone Fernie Fulton MD Primary Care Provider [phone] Allergies No known active allergies Medications nebivolol [...] on file Legal Sex Male 2:51 PM TRAVEL NURSE Gender Identity Not on file Sexual Orientation Not on file Last Filed Vital Signs Vital Sign Reading Time Taken Comments Blood Pressure 165/99 08/30/2020 10:46 AM TRAVEL NURSE did not take his blood pressure medication, and will resume once he is discharged. Pulse 73 08/30/2020 10:46 AM TRAVEL NURSE Temperature 36.7 C (98.1 F) 08/30/2020 10:46 AM TRAVEL NURSE Respiratory Rate 20 08/30/2020 10:4 6 AM TRAVEL NURSE Oxygen Saturation 96% 08/30/2020 10: 46 AM TRAVEL NURSE Inhaled Oxygen Concentration - - Weight 86.2 kg (190 lb) 08/30/2020 9:05 AM TRAVEL NURSE Height 172.7 cm (5' 8 ) 08/30/2020 9:05 AM TRAVEL NURSE Body Mass Index 28.89 08/30/2020 9:05 AM TRAVEL NURSE Plan of Treatment Health Maintenance Due Date Last Done Comments Colorectal Cancer Screening Colonoscopy ( Years) 1965 Annual Physical 1966 Hepatitis C 1981 DTaP, Tdap and Td Vaccines ( 1 - Tdap) 1982 Zoster Vaccines (1 of 2) 2013 COVID-19 Vaccine (1 - 2023-2 5 season) 2024 Influenza Adult (#1) 2024 RSV Immunization or 60+ Years (1 - 1-dose 75+ series) 2038 Meningococcal B Vaccine Aged Out No l onger eligible based on patient's age to complete this topic Meningococcal Vaccine Aged Out No belinda tere [...] this topic Medical Devices Implanted Type Area Cupola Tender Helper Device Identifier Shelf Expiration Date Model / Serial / Lot Iol [employer] Zcboo - [id number] Implanted:Qty: 1 on 08/30/2020 by Alcon Desir MD at [facility] [employer] [id number] 01/20/2021 [id number] / [id number] / Insurance [facility] Care Teams Appliance Servicer Relationship Specialty Start Date End Date Fernie Fulton MD [address] [place] [address] PCP - General INTERNAL MEDICINE 08/28/20
--- OUTSIDE RECORDS SUMMARY | 2024-10-16 14:53 | XMS_ITS | Encounter Summary ---
Author Organization [facility] Address [facility] [place] [address] Care Team Providers Care Ground Nuclear Weapons Assembly Officer Name Role Phone Fernie Fulton MD Primary Care Provider [phone] Encounter Details Date Type Department Care Team (Late st Contact Info) Description 08/23/2020 Prep for Procedure [facility] [address] [place], [place] [id number] Alcon Desir MD [address] [facility] [address] [place] [address] Social History Tobacco Use Types Packs/Day Years Used Date Smoking Tobacco: Former Smokeless Tobacco: Never Alcohol Use Standard Drinks/Week Comments Not Currently 0 (1 standard drink = 0.6 oz pur e alcohol) Sex and Gender Information Value Date Recorded Sex Assigned at Not on file Legal Sex Male 2:51 PM BOW STAPLER Gender Identity Not on file Sexual Orientation Not on file documented as of this encounter Plan of Treatment Not on file documented as of this encounter Visit Diagnoses Diagnosis Preop testing- Primary Preoperative examination, unspecified documented in this encounter Additional Health Concerns Infection Onset Date Last Indicated Resolved Time COVID-19 Rule Out 08/28/2020 08/28/2020 08/30/2020 12:50 PM BOW STAPLER documented as of this encounter Care Teams Ground Nuclear Weapons Assembly Officer Relationship Specialty Start Date End Date Fernie Fulton MD [address] [place] [address] PCP - General INTERNAL MEDICINE 08/28/20 documented as of this encounter
--- OUTSIDE RECORDS SUMMARY | 2024-10-16 14:54 | XMS_ITS | Clinical Summary ---
Author Organization [facility] Address [address] [place] [address] Care Team Providers Care Block Sorter Name Role Phone Fernie Fulton MD Primary Care Provider [phone] Fernie Fulton MD Unavailable [phone] Allergies Active Allergy Reactions Criticality Noted Date [...] (MAG-OX) 400 mg (241.3 mg elemental magnesium) tabletIndicatio ns:hypomagnesem ia Take 0.5 tablets (200 mg total) by mouth daily Active pantoprazole DR (PROTONIX) 40 mg EC tablet Take 1 tablet (40 mg total) by mouth 2 (two) times a day 09/02/2024 Active Active Problems Problem Noted Date Diagnosed Date Acute GI bleeding 08/28/2024 Hypercholesterolemia 08/28/2024 Colitis 08/27/2024 Benign hypertension 12/15/2015 Overview (12/07/2016): HTN (hypertension), benign Ulysses IV diagnosis 12/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 Overview (12/07/2016): Psychosocial stressors Dyslipidemia 12/15/2015 Overview (12/09/2016): Mixed dyslipidemia Abnormal echocardiography 12/15/2015 Overview (12/09/2016): Abnormal stress echocardiogram Encounters Date Type Department Care Team Description 4 10:57 AM CORNER TRIMMER OPERATOR Anesthesia Event [facility] [address] [place] [address] [phone] Dean Negrete MD 4 10:45 AM CORNER TRIMMER OPERATOR - 4 11:15 AM CORNER TRIMMER OPERATOR Surgery [facility] [address] [place] [address] [phone] Cristo Funes MD COLON BIOPSY 4 10:07 AM CORNER TRIMMER OPERATOR Anesthesia Event [facility] [address] [place] [address] [phone] Terrell Jung DO 4 10:00 AM CORNER TRIMMER OPERATOR - 4 10:30 AM CORNER TRIMMER OPERATOR Surgery [facility] [address] [place] [address] [phone] Cristo Funes MD ESOPHAGOGASTRODUODENOSCOPY BIOPSY 4 4:30 PM CORNER TRIMMER OPERATOR - 4 1:31 PM CORNER TRIMMER OPERATOR Hospital Encounter [address] [phone] Ping Lopez DO Dehaan, Kevin Patrick, MD Khan, Fatima A., MD Smelser, Katelyn P., MD Acute GI bleeding (Primary Dx); Colitis Discharge Disposition: Discharge to home or self care 4 Orders Only [facility] Hospitalists [address] [place] [phone] Madie Duran MD from Last 3 Months [...] drink = 0.6 oz pur e alcohol) [facility] Utilities Answer Date Recorded In the past 12 months has th e electric, gas, oil, or water company threatened to shut off services in your [...] any time in the past 12 m [facility], were you homeless or living in a fdc (including now)? No 09/01/2024 Personal Safety Answer Date Recorded Have you ever been in or are you currently in a harmful physical or emotional relationship or is someone making you feel afraid or unsafe? Denies 08/28/2024 Sex and Gender Information Value Date Recorded Sex Assigned at Not on file Legal Sex Male 3:52 AM CORNER TRIMMER OPERATOR Gender Identity Not on file Sexual Orientation Not on file Obstetrics History Last Filed Vital Signs Vital Sign Reading Time Taken Comments Blood Pressure 112/64 09/02/2024 12:44 PM CORNER TRIMMER OPERATOR Pulse 105 09/02/2024 12:44 PM CORNER TRIMMER OPERATOR Temperature 36.9 C (98.5 F) 09/02/2024 12:44 PM CORNER TRIMMER OPERATOR Respiratory Rate 18 09/02/2024 12:4 4 PM CORNER TRIMMER OPERATOR Oxygen Saturation 98% 09/02/2024 12: 44 PM CORNER TRIMMER OPERATOR Inhaled Oxygen Concentration - - Weight 88.4 kg (194 lb 14.2 oz) 08/28/2024 4:30 PM CORNER TRIMMER OPERATOR Height 172.7 cm (5' 8 ) 08/28/2024 4:30 PM CORNER TRIMMER OPERATOR Body Mass Index 29.63 08/28/2024 4:30 PM CORNER TRIMMER OPERATOR Plan of Treatment Health Maintenance Due [...] Diagnosis Comments EGFR Routine 09/02/2024 5:43 AM CORNER TRIMMER OPERATOR DIFFERENTIAL AUTO Routine 09/02/2024 5:43 AM CORNER TRIMMER OPERATOR MAGNESIUM Routine 09/02/2024 5:43 AM CORNER TRIMMER OPERATOR BASIC METABOLIC PANEL Routine 09/02/2024 5:43 AM CORNER TRIMMER OPERATOR CBC WITH AUTO DIFFERENTIAL Routine 09/02 5:43 AM CORNER TRIMMER OPERATOR SURGICAL PATHOLOGY Routine 09/01/2024 11:14 AM CORNER TRIMMER OPERATOR Colitis COLON BIOPSY 09/01/2024 10:57 AM CORNER TRIMMER OPERATOR Colitis COLONOSCOPY 09/01/2024 10:52 AM CORNER TRIMMER OPERATOR EGFR Routine 09/01/2024 5:45 AM CORNER TRIMMER OPERATOR BASIC METABOLIC PANEL Routine 09/01/2024 5:45 AM CORNER TRIMMER OPERATOR CT ABDOMEN PELVIS W CONTRAST IP Routine 12:40 PM CORNER TRIMMER OPERATOR DIFFERENTIAL AUTO Routine 08/31/2024 11:59 AM CORNER TRIMMER OPERATOR CBC WITH AUTO DIFFERENTIAL Routine 08/31 11:59 AM CORNER TRIMMER OPERATOR STOOL CULTURE Routine 08/31/2024 11:59 AM CORNER TRIMMER OPERATOR ADD ON LAB TEST Add-On 08/31/2024 11:14 AM CORNER TRIMMER OPERATOR CRP (ACUTE PHASE) Routine 08/31/2024 6:01 AM CORNER TRIMMER OPERATOR EGFR Routine 08/31/2024 6:01 AM CORNER TRIMMER OPERATOR DIFFERENTIAL AUTO Routine 08/31/2024 6:01 AM CORNER TRIMMER OPERATOR CBC WITH AUTO DIFFERENTIAL Routine 08/31 6:01 AM CORNER TRIMMER OPERATOR MAGNESIUM Routine 08/31/2024 6:01 AM CORNER TRIMMER OPERATOR BASIC METABOLIC PANEL Routine 08/31/2024 6:01 AM CORNER TRIMMER OPERATOR CALCIUM, IONIZED Routine 08/30/2024 11:56 AM CORNER TRIMMER OPERATOR US RUQ IP Routine 08/30/2024 8:29 AM CORNER TRIMMER OPERATOR EGFR Routine 08/30/2024 5:23 AM CORNER TRIMMER OPERATOR DIFFERENTIAL AUTO Routine 08/30/2024 5:23 AM CORNER TRIMMER OPERATOR BASIC METABOLIC PANEL Routine 08/30/2024 5:23 AM CORNER TRIMMER OPERATOR CBC WITH AUTO DIFFERENTIAL Routine 08/30 5:23 AM CORNER TRIMMER OPERATOR C. DIFFICILE TESTING Routine 08/29/2024 11:07 PM CORNER TRIMMER OPERATOR HEMOGLOBIN AND HEMATOCRIT Timed 2023 1:56 PM CORNER TRIMMER OPERATOR SURGICAL PATHOLOGY Routine 08/29/2024 10:14 AM CORNER TRIMMER OPERATOR Acute GI bleeding ESOPHAGOGASTRODUODENOSCOPY BIOPSY 08/29/2024 10:04 AM CORNER TRIMMER OPERATOR Acute GI bleeding EGD 08/29/2024 9:54 AM CORNER TRIMMER OPERATOR MANUAL DIFFERENTIAL Routine 08/29/2024 6:29 AM CORNER TRIMMER OPERATOR EGFR Routine 08/29/2024 6:29 AM CORNER TRIMMER OPERATOR DIFFERENTIAL AUTO Routine 08/29/2024 6:29 AM CORNER TRIMMER OPERATOR MAGNESIUM Routine 08/29/2024 6:29 AM CORNER TRIMMER OPERATOR CBC WITH AUTO DIFFERENTIAL Routine 08/29 6:29 AM CORNER TRIMMER OPERATOR BASIC METABOLIC PANEL Routine 08/29/2024 6:29 AM CORNER TRIMMER OPERATOR TRANSFUSE RED BLOOD CELLS Timed 2023 3:22 AM CORNER TRIMMER OPERATOR PREPARE RBC STAT 08/29/2024 2:41 AM CORNER TRIMMER OPERATOR HEMOGLOBIN AND HEMATOCRIT Timed 2023 12:51 AM CORNER TRIMMER OPERATOR B CHECK SAMPLE STAT 08/28/2024 7:16 PM CORNER TRIMMER OPERATOR HEMOGLOBIN AND HEMATOCRIT STAT 2023 7:16 PM CORNER TRIMMER OPERATOR TYPE AND SCREEN STAT 08/28/2024 7:10 PM CORNER TRIMMER OPERATOR from Last 3 Months Results * eGFR (09/02/2024 5:43 AM CORNER TRIMMER OPERATOR) eGFR 72 >=60 mL/min/1. 73 m2 Comment: Interpretive Data Reference Interval Normal >/= 90 mL/min/1.73m2 Mildly decreased* 60 - 89 mL/min/1.73m2 Mildly to moderately decreased 45 - 59 mL/min/1.73m2 Moderately to severely decreased 30 - 44 mL/min/1.73m2 Severely decreased 15 - 29 mL/min/1.73m2 Kidney Failure < 15 mL/min/1.73m2 *Relative to young adult level Estimated glomerular [...] last reviewed 2021. Blood 09/02/2024 5:43 AM CORNER TRIMMER OPERATOR 09/02/2024 6:11 AM CORNER TRIMMER OPERATOR Cristo Funes MD LAB BLOOD ORDERABLE S Final Result Performing Organization Address City/[facility] Co de Phone Number [facility] [address] Department [place] [address] * (ABNORMAL) Differential, auto (09/02/2024 5:43 AM CORNER TRIMMER OPERATOR) [facility] Monocyte abs 1.4(H) 0.2 - 0.8 K/cumm Eosinophil abs 0.1 0.0 - 0.5 K/cumm [facility] Neutrophil pct 56.0 % [facility] Comment: Interpretive Data Percent cell count reference ranges are not reported, since discordance with absolute values may lead to misinterpretation of CBC data. Current Interpretive Data was last revised on 2017. Lymphocyte pct 16.0 % [facility] Comment: Interpretive Data Percent cell count reference ranges are not reported, since discordance with absolute values may lead to misinterpretation of CBC data. Current Interpretive Data was last revised on 2017. Monocyte pct 16.8 % [facility] Comment: Interpretive Data Percent cell count reference ranges are not reported, since discordance with absolute values may lead to misinterpretation of CBC data. Current Interpretive Data was last revised on 2017. Eosinophil pct 0.8 % [facility] Comment: Interpretive Data Percent cell count reference ranges are not reported, since discordance with absolute values may lead to misinterpretation of CBC data. Current Interpretive Data was last revised on 2017. Blood 09/02/2024 5:43 AM CORNER TRIMMER OPERATOR 09/02/2024 6:11 AM CORNER TRIMMER OPERATOR Cristo Funes MD LAB BLOOD ORDERABLE S Final Result Performing Organization Address City/[facility]/ZIP Co de Phone Number [facility] [address] Department [place] [address] * (ABNORMAL) CBC with auto differential (09/02/2024 5:43 AM CORNER TRIMMER OPERATOR) [facility] WBC 8.5 3.8 - 9.9 K/cumm Hgb 8.2(L) 13.0 - 17.5 g/dL [facility] Hct 24.9(L) 38.9 - 50.3 % [facility] Plt 228 150 - 400 K/cumm [facility] MPV 9.3 9.1 - 12.3 fL [facility] RBC 2.60(L) 4.30 - 5.80 M/cumm [facility] MCV 95.8 81.3 - 96.4 fL [facility] MCH 31.5 27.1 - 33.3 pg [facility] MCHC 32.9 32.3 - 35.7 g/dL [facility] RDW CV 15.3(H) 11.1 - 14.9 % [facility] RDW SD 53.0(H) 35.7 - 48.1 fL [facility] NRBC abs 0.15(H) 0.00 - 0.01 K/cumm [facility] Blood 09/02/2024 5:43 AM CORNER TRIMMER OPERATOR 09/02/2024 6:11 AM CORNER TRIMMER OPERATOR Cristo Funes MD LAB BLOOD ORDERABLE S Final Result Performing Organization Address City/[facility]/ZIP Co de Phone Number [facility] [address] [facility] [place] [address] * Magnesium (09/02/2024 5:43 AM CORNER TRIMMER OPERATOR) [facility] Magnesium 1.6 1.4 - 2.5 mg/dL Blood 09/02/2024 5:43 AM CORNER TRIMMER OPERATOR 09/02/2024 6:11 AM CORNER TRIMMER OPERATOR Cristo Funes MD LAB BLOOD ORDERABLE S Final Result [facility] [address] Department [place] [address] * (ABNORMAL) Basic metabolic panel (09/02/2024 5:43 AM CORNER TRIMMER OPERATOR) Sodium 139 135 - 145 mmol/L Potassium, pl 3.1(L) 3.3 - 4.9 mmol/L [facility] Chloride 104 97 - 110 mmol/L [facility] CO2 23 22 - 32 mmol/L [facility] Anion gap 12 2 - 15 mmol/L [facility] BUN 5(L) 6 - 25 mg/dL [facility] Creatinine 1.15 0.80 - 1.30 mg/dL [facility] Glucose 112 70 - 199 mg/dL [facility] Comment: Interpretive Data Fasting glucose >/= 126 mg/dl is diagnostic for diabetes. Fasting is defined as no caloric intake [...] 2022. Calcium 7.8(L) 8.5 - 10.3 mg/dL [facility] Blood 09/02/2024 5:43 AM CORNER TRIMMER OPERATOR 09/02/2024 6:11 AM CORNER TRIMMER OPERATOR us Cristo Funes MD LAB BLOOD ORDERABLE S Final Result Performing Organization Address City/State/[facility] Co de Phone Number [place] [address] [address] [facility] Department [place] [address] * Surgical pathology (09/01/2024 11:14 AM CORNER TRIMMER OPERATOR) Tissue (Colon, Biopsy) 09/01/2024 11:14 AM CORNER TRIMMER OPERATOR Comment:For colitis Tissue (Colon, Biopsy) 09/01/2024 11:15 AM CORNER TRIMMER OPERATOR Comment:For colitis Narrative PATHOLOGY [facility] - 09/02/2024 8:16 AM CORNER TRIMMER OPERATOR [place] [address] [place], [place] [address] Tele: Dara Paz MD - Sewing Machine Repairer Helper Note to Patients: This report may [...] the details. SURGICAL PATHOLOGY REPORT Patient Name: JONES SANABRIA Address: [address] [place] [address] Gender: M : 1965 (Age: 59) Service: Cardiology Location: [place] [address], Hospital #: [id number] Patient Type: [facility] INPATIENT Taken: 09/01/2024 Received 09/01/2024 Reported: 09/02/2024 Physician(s): Awa Reed M.D. DIAGNOSIS: Large intestine, right colon, biopsy: - Mild active colitis with acute inflammatory exudate (see comment) Large intestine, left colon, biopsy: - Mild active colitis with acute inflammatory exudate [facility]/09/02/2024 08:16 Examining Pathologist: Karine Crabtree M.D. Report Reviewed and Electronically Signed By Karine Crabtree M.D. DIAGNOSIS COMMENT: The findings suggest infection/toxin in the appropriate clinical context, but other causes of an acute, self-limited colitis cannot be entirely excluded. SPECIMEN TYPE: A: RIGHT COLON BIOPSY B: LEFT COLON BIOPSY CLINICAL IMPRESSION AND HISTORY: Diarrhea. Colonoscopy shows pseudomembranes in the rectum and sigmoid colon and erosions and erythema in the ascending colon and cecum. GROSS DESCRIPTION: A. Received in formalin labeled JONES SANABRIA and right colon biopsy are multiple young tissue fragments, 2 x 0.2 x 0.2 cm in aggregate. The specimen is filtered and entirely submitted in A1. B. Received in formalin labeled JONES CONNOLLYON and left colon biopsy are multiple young tissue fragments, 1.5 x 0.2 x 0.2 cm in aggregate. The specimen is filtered and entirely submitted in B1. jxi/09/01/2024 13:23 LKB,JTITO MICROSCOPIC DESCRIPTION: Sections of the right colon biopsy show multiple fragments of colonic mucosa, some of which are unremarkable. Others show patchy, mild acute inflammation accompanied by acute inflammatory exudate. No significant architectural distortion is seen. Viral inclusions are not identified. Sections of the left colon biopsy also show patchy acute inflammation with acute inflammatory exudate. Viral inclusions are not seen. The crypt architecture is maintained. Clerical Data Follows A; 98758 B; 98007 REPORT IMAGES AND/OR SCANNED DOCUMENTS ONLY VIEWABLE IN PDF FORMAT The immunohistochemical test(s) cited in this report, if any, was developed and its performance characteristics determined by [facility] Pathology Department. It has not been cleared or approved by the U.S. Food and Drug Administration. The FDA has determined that such clearance or approval is not necessary. This test is used for clinical purposes. It should not be regarded as investigational or for research. [facility] Laboratory is certified under the Clinical Laboratory Improvement Amendments of 1988 (CLIA) as qualified to perform high complexity testing. Immunostains were performed on formalin-fixed paraffin embedded tissue using a polymer diaminobenzidine chromogen detection system. Antibodies used may include clone SP1 (rabbit monoclonal, estrogen receptor), clone 1E2 (rabbit monoclonal progesterone receptor), Ki-67 (rabbit monoclonal, 30-9), CD117 (rabbit polyclonal, c-kit), and anti-Her-2/bryn (4B5) (rabbit monoclonal primary antibody). In the event that immunohistochemistry or special stains have been performed, attending physician has confirmed appropriateness of controls. Frozen section, operating room consultation, gross examination and dissection, and case sign out may have been performed in part or completely in the following laboratories: [facility], [address] [place] [address], [address] [facility], [place] [address]. Cristo Funes MD LAB PATHOLOGY ORDER HOLA Final Result PATHOLOGY [facility] Laboratory Receiving [address] [place], [place] [id number] * Colonoscopy (09/01/2024 10:52 AM CORNER TRIMMER OPERATOR) Anatomical Region Laterality Modality Other Narrative Procedure Note Cristo Funes MD - 09/01/2024 10:52 AM CST ENDOSCOPY LAB Patient Name: Jones Sanabria Procedure Date: 09/01/2024 10:52AM Admit Type: Inpatient Room: [facility] Date of : 1965 Instrument Name: [...] Final Result * eGFR (09/01/2024 5:45 AM CORNER TRIMMER OPERATOR) eGFR 82 >=60 mL/min/1. 73 m2 Comment: Interpretive Data Reference Interval Normal >/= 90 mL/min/1.73m2 Mildly decreased* 60 - 89 mL/min/1.73m2 Mildly to moderately decreased 45 - 59 mL/min/1.73m2 Moderately to severely decreased 30 - 44 mL/min/1.73m2 Severely decreased 15 - 29 mL/min/1.73m2 Kidney Failure < 15 mL/min/1.73m2 *Relative to young adult level Estimated glomerular [...] last reviewed 2021. Blood 09/01/2024 5:45 AM CORNER TRIMMER OPERATOR 09/01/2024 6:26 AM CORNER TRIMMER OPERATOR us Cayden Smiley MD LAB BLOOD ORDERABLES Final Res ult [facility] [address] Department [place] [address] * (ABNORMAL) Basic metabolic panel (09/01/2024 5:45 AM CORNER TRIMMER OPERATOR) Sodium 137 135 - 145 mmol/L Potassium, pl 3.2(L) 3.3 - 4.9 mmol/L [facility] Chloride 100 97 - 110 mmol/L [facility] CO2 24 22 - 32 mmol/L [facility] Anion gap 13 2 - 15 mmol/L [facility] BUN 7 6 - 25 mg/dL [facility] Creatinine 1.04 0.80 - 1.30 mg/dL [facility] Glucose 128 70 - 199 mg/dL [facility] Comment: Interpretive Data Fasting glucose >/= 126 mg/dl is diagnostic for diabetes. Fasting is defined as no caloric intake [...] 2022. Calcium 8.0(L) 8.5 - 10.3 mg/dL [facility] Blood 09/01/2024 5:45 AM CORNER TRIMMER OPERATOR 09/01/2024 6:26 AM CORNER TRIMMER OPERATOR us Cayden Smiley MD LAB BLOOD ORDERABLES Final Res ult [facility] [address] Department [place] [address] * CT Abdomen Pelvis W Contrast (08/31/2024 12:40 PM CORNER TRIMMER OPERATOR) Anatomical Region Laterality Modality Body N/A Computed Tomogra phy 08/31/2024 4:39 PM CORNER TRIMMER OPERATOR Impressions 08/31/2024 4:39 PM CORNER TRIMMER OPERATOR 1. Diffuse pancolitis, likely infectious/inflammatory. 2. Circumferential urinary bladder wall thickening, which may represent reactive changes or superimposed cystitis. Mural thickening is exaggerated by degree of decompression. Electronically signed by: Dejan Chino D.O. Narrative 08/31/2024 4:39 PM CORNER TRIMMER OPERATOR EXAMINATION: CT ABDOMEN PELVIS W CONTRAST HISTORY: [...] body wall: No acute abnormality. Degenerative changes. Procedure Note Dejan Chino, DO - [...] by: Dejan Chino D.O. Cayden Smiley MD [facility] [place] PROCEDURES Final Result * (ABNORMAL) Differential, auto (08/31/2024 11:59 AM CORNER TRIMMER OPERATOR) Neutrophil abs 6.3 1.5 - 6.5 K/cumm Imm gran abs 0.4(H) 0.0 - 0.1 K/cumm [facility] Lymphocyte abs 1.0 0.8 - 3.3 K/cumm [facility] Monocyte abs 1.6(H) 0.2 - 0.8 K/cumm [facility] Eosinophil abs 0.0 0.0 - 0.5 K/cumm [facility] Basophil abs 0.0 0.0 - 0.1 K/cumm [facility] Neutrophil pct 67.2 % [facility] Comment: Interpretive Data Percent cell count reference ranges are not reported, since discordance with absolute values may lead to misinterpretation of CBC data. Current Interpretive Data was last revised on 2017. Imm gran pct 4.2 % [facility] Comment: Interpretive Data Percent cell count reference ranges are not reported, since discordance with absolute values may lead to misinterpretation of CBC data. Current Interpretive Data was last revised on 2017. Lymphocyte pct 10.5 % [facility] Comment: Interpretive Data Percent cell count reference ranges are not reported, since discordance with absolute values may lead to misinterpretation of CBC data. Current Interpretive Data was last revised on 2017. Monocyte pct 17.4 % [facility] Comment: Interpretive Data Percent cell count reference ranges are not reported, since discordance with absolute values may lead to misinterpretation of CBC data. Current Interpretive Data was last revised on 2017. Eosinophil pct 0.3 % [facility] Comment: Interpretive Data Percent cell count reference ranges are not reported, since discordance with absolute values may lead to misinterpretation of CBC data. Current Interpretive Data was last revised on 2017. Basophil pct 0.4 % [facility] Comment: Interpretive Data Percent cell count reference ranges are not reported, since discordance with absolute values may lead to misinterpretation of CBC data. Current Interpretive Data was last revised on 2017. Blood 08/31/2024 11:5 9 AM CORNER TRIMMER OPERATOR 08/31/2024 11:59 AM CORNER TRIMMER OPERATOR us Cayden Smliey MD LAB BLOOD ORDERABLES Final Res ult [facility] [address] Department [place] [address] * (ABNORMAL) CBC with auto differential (08/31/2024 11:59 AM CORNER TRIMMER OPERATOR) WBC 9.3 3.8 - 9.9 K/cumm Hgb 9.7(L) 13.0 - 17.5 g/dL [facility] Hct 28.5(L) 38.9 - 50.3 % [facility] Plt 165 150 - 400 K/cumm [facility] MPV 10.0 9.1 - 12.3 fL [facility] RBC 2.98(L) 4.30 - 5.80 M/cumm [facility] MCV 95.6 81.3 - 96.4 fL [facility] MCH 32.6 27.1 - 33.3 pg [facility] MCHC 34.0 32.3 - 35.7 g/dL [facility] RDW CV 15.0(H) 11.1 - 14.9 % [facility] RDW SD 51.8(H) 35.7 - 48.1 fL [facility] NRBC abs 0.09(H) 0.00 - 0.01 K/cumm [facility] Blood 08/31/2024 11:5 9 AM CORNER TRIMMER OPERATOR 08/31/2024 12:11 PM CORNER TRIMMER OPERATOR us Cayden Smiley MD LAB BLOOD ORDERABLES Final Res ult [facility] [address] Department [place] [address] * Stool culture Stool Rectum (08/31/2024 11:59 AM CORNER TRIMMER OPERATOR) Pathologist [facility] Direct Specimen Exam Shiga Toxin Testing: Negative for: Shigatoxin of enterohemorrhagic E.coli. Report Final Report: No Salmonella, Shigella, Aeromonas, Plesiomonas, Yersinia, Campylobacter, or E.coli O157:H7 isolated [facility] Stool (Rectum) 08/31/2024 11 :59 AM CORNER TRIMMER OPERATOR 08/31/2024 3:13 PM CORNER TRIMMER OPERATOR Narrative [facility] - 09/03/2024 2:00 PM CORNER TRIMMER OPERATOR This specimen is screened for the presence of Aeromonas, Campylobacter, E.coli-0157:H7, Plesiomonas, Salmonella, Shigella, Shiga Toxin producing E. coli, and Yersinia. Ai NARAYAN LAB MICROBIOLOGY - GENERAL OR DERABLES Final Result Performing Organization Address [facility]/ZIP Co de Phone Number [facility] [address] [place] [address] * CRP - Add on lab test (08/31/2024 11:14 AM CORNER TRIMMER OPERATOR) Acceptable Yes Blood 08/31/2024 11:1 4 AM CORNER TRIMMER OPERATOR 08/31/2024 11:14 AM CORNER TRIMMER OPERATOR Narrative [facility] - 08/31/2024 11:14 AM CORNER TRIMMER OPERATOR Name of Test->CRP Ai NARAYAN LAB BLOOD ORDERABLES Final Re sult Performing Organization Address [facility] Co de Phone Number [facility] [address] [place] [address] * eGFR (08/31/2024 6:01 AM CORNER TRIMMER OPERATOR) eGFR 89 >=60 mL/min/1. 73 m2 Comment: Interpretive Data Reference Interval Normal >/= 90 mL/min/1.73m2 Mildly decreased* 60 - 89 mL/min/1.73m2 Mildly to moderately decreased 45 - 59 mL/min/1.73m2 Moderately to severely decreased 30 - 44 mL/min/1.73m2 Severely decreased 15 - 29 mL/min/1.73m2 Kidney Failure < 15 mL/min/1.73m2 *Relative to young adult level Estimated glomerular [...] last reviewed 2021. Blood 08/31/2024 6:01 AM CORNER TRIMMER OPERATOR 08/31/2024 7:08 AM CORNER TRIMMER OPERATOR us Cayden Smiley MD LAB BLOOD ORDERABLES Final Res ult [facility] [address] Department [place] [address] * (ABNORMAL) Differential, auto (08/31/2024 6:01 AM CORNER TRIMMER OPERATOR) Neutrophil abs 8.4(H) 1.5 - 6.5 K/cumm Imm gran abs 0.3(H) 0.0 - 0.1 K/cumm [facility] Lymphocyte abs 1.3 0.8 - 3.3 K/cumm [facility] Monocyte abs 2.0(H) 0.2 - 0.8 K/cumm [facility] Eosinophil abs 0.0 0.0 - 0.5 K/cumm [facility] Basophil abs 0.1 0.0 - 0.1 K/cumm [facility] Neutrophil pct 69.4 % [facility] Comment: Interpretive Data Percent cell count reference ranges are not reported, since discordance with absolute values may lead to misinterpretation of CBC data. Current Interpretive Data was last revised on 2017. Imm gran pct 2.3 % [facility] Comment: Interpretive Data Percent cell count reference ranges are not reported, since discordance with absolute values may lead to misinterpretation of CBC data. Current Interpretive Data was last revised on 2017. Lymphocyte pct 10.7 % [facility] Comment: Interpretive Data Percent cell count reference ranges are not reported, since discordance with absolute values may lead to misinterpretation of CBC data. Current Interpretive Data was last revised on 2017. Monocyte pct 16.6 % [facility] Comment: Interpretive Data Percent cell count reference ranges are not reported, since discordance with absolute values may lead to misinterpretation of CBC data. Current Interpretive Data was last revised on 2017. Eosinophil pct 0.3 % [facility] Comment: Interpretive Data Percent cell count reference ranges are not reported, since discordance with absolute values may lead to misinterpretation of CBC data. Current Interpretive Data was last revised on 2017. Basophil pct 0.7 % [facility] Comment: Interpretive Data Percent cell count reference ranges are not reported, since discordance with absolute values may lead to misinterpretation of CBC data. Current Interpretive Data was last revised on 2017. Blood 08/31/2024 6:01 AM CORNER TRIMMER OPERATOR 08/31/2024 7:08 AM CORNER TRIMMER OPERATOR us Cayden Smiley MD LAB BLOOD ORDERABLES Final Res ult [facility] [address] Department [place] [address] * (ABNORMAL) CBC with auto differential (08/31/2024 6:01 AM CORNER TRIMMER OPERATOR) WBC 12.1(H) 3.8 - 9.9 K/cumm Hgb 10.5(L) 13.0 - 17.5 g/dL [facility] Comment:Hemoglobin delta due to apparent blood transfusion. Hct 31.2(L) 38.9 - 50.3 % [facility] Plt 149(L) 150 - 400 K/cumm [facility] MPV 10.6 9.1 - 12.3 fL [facility] RBC 3.24(L) 4.30 - 5.80 M/cumm [facility] MCV 96.3 81.3 - 96.4 fL [facility] MCH 32.4 27.1 - 33.3 pg [facility] MCHC 33.7 32.3 - 35.7 g/dL [facility] RDW CV 15.0(H) 11.1 - 14.9 % [facility] RDW SD 51.6(H) 35.7 - 48.1 fL [facility] NRBC abs 0.15(H) 0.00 - 0.01 K/cumm [facility] Blood 08/31/2024 6:01 AM CORNER TRIMMER OPERATOR 08/31/2024 7:08 AM CORNER TRIMMER OPERATOR Cayden Smiley MD LAB BLOOD ORDERABLES Final Res ult Performing Organization Address [facility]/ZIP Co de Phone Number [facility] [address] [facility] [place] [address] * (ABNORMAL) CRP (acute phase) (08/31/2024 6:01 AM CORNER TRIMMER OPERATOR) Pathologist [facility] CRP 85.5(H) <=10.0 mg/L Blood 08/31/2024 6:01 AM CORNER TRIMMER OPERATOR 08/31/2024 7:08 AM CORNER TRIMMER OPERATOR Cayden Smiley MD LAB BLOOD ORDERABLES Final Res ult Performing Organization Address [facility] Co de Phone Number [facility] [address] [facility] [place] [address] * Magnesium (08/31/2024 6:01 AM CORNER TRIMMER OPERATOR) [facility] Magnesium 1.6 1.4 - 2.5 mg/dL Blood 08/31/2024 6:01 AM CORNER TRIMMER OPERATOR 08/31/2024 7:08 AM CORNER TRIMMER OPERATOR Result [facility] Cayden Smiley MD LAB BLOOD ORDERABLES Final Res ult Performing Organization Address [facility] Co de Phone Number [facility] [address] [facility] [place] [address] * Basic metabolic panel (08/31/2024 6:01 AM CORNER TRIMMER OPERATOR) Sodium 136 135 - 145 mmol/L Potassium, pl 3.5 3.3 - 4.9 mmol/L [facility] Chloride 100 97 - 110 mmol/L [facility] CO2 25 22 - 32 mmol/L [facility] Anion gap 11 2 - 15 mmol/L [facility] BUN 10 6 - 25 mg/dL [facility] Creatinine 0.97 0.80 - 1.30 mg/dL [facility] Glucose 132 70 - 199 mg/dL [facility] Comment: Interpretive Data Fasting glucose >/= 126 mg/dl is diagnostic for diabetes. Fasting is defined as no caloric intake [...] 2022. Calcium 8.6 8.5 - 10.3 mg/dL [facility] Blood 08/31/2024 6:01 AM CORNER TRIMMER OPERATOR 08/31/2024 7:08 AM CORNER TRIMMER OPERATOR us Cayden Smiley MD LAB BLOOD ORDERABLES Final Res ult Performing Organization Address [facility]/ZIP Co de Phone Number [facility] [address] Department [place] [address] * (ABNORMAL) Calcium, ionized (08/30/2024 11:56 AM CORNER TRIMMER OPERATOR) Calcium, Ionized 3.61(L) 4.50 - 5.10 mg/dL Blood 08/30/2024 11:5 6 AM CORNER TRIMMER OPERATOR 08/30/2024 11:57 AM CORNER TRIMMER OPERATOR us Cayden Smiley MD LAB BLOOD ORDERABLES Final Res ult [facility] [address] Department [place] [address] * US RUQ (08/30/2024 8:29 AM CORNER TRIMMER OPERATOR) Anatomical Region Laterality Modality Abdomen N/A Ultrasound 08/30/2024 8:36 AM CORNER TRIMMER OPERATOR Impressions 08/30/2024 8:36 AM CORNER TRIMMER OPERATOR 1. Increased hepatic echogenicity consistent with hepatic steatosis. 2. Gallbladder containing stones and sludge without evidence of acute cholecystitis. Electronically signed by: Dean Pichardo M.D. Narrative 08/30/2024 8:36 AM CORNER TRIMMER OPERATOR EXAMINATION: LIMITED ABDOMINAL SONOGRAM HISTORY: Concern for [...] Dean Pichardo M.D. us Cristo Funes MD [facility]EDURES F inal Result * eGFR (08/30/2024 5:23 AM CORNER TRIMMER OPERATOR) eGFR 83 >=60 mL/min/1. 73 m2 Comment: Interpretive Data Reference Interval Normal >/= 90 mL/min/1.73m2 Mildly decreased* 60 - 89 mL/min/1.73m2 Mildly to moderately decreased 45 - 59 mL/min/1.73m2 Moderately to severely decreased 30 - 44 mL/min/1.73m2 Severely decreased 15 - 29 mL/min/1.73m2 Kidney Failure < 15 mL/min/1.73m2 *Relative to young adult level Estimated glomerular [...] data was last reviewed 2021. Blood 08/30/2024 5:2 3 AM CORNER TRIMMER OPERATOR 08/30/2024 6:41 AM CORNER TRIMMER OPERATOR us Cayden Smiley MD LAB BLOOD ORDERABLES Final Res ult [facility] [address] Department [place] [address] * (ABNORMAL) Differential, auto (08/30/2024 5:23 AM CORNER TRIMMER OPERATOR) Neutrophil abs 6.2 1.5 - 6.5 K/cumm Imm gran abs 0.1 0.0 - 0.1 K/cumm [facility] Lymphocyte abs 1.0 0.8 - 3.3 K/cumm [facility] Monocyte abs 1.0(H) 0.2 - 0.8 K/cumm [facility] Eosinophil abs 0.0 0.0 - 0.5 K/cumm [facility] Basophil abs 0.0 0.0 - 0.1 K/cumm [facility] Neutrophil pct 74.3 % [facility] Comment: Interpretive Data Percent cell count reference ranges are not reported, since discordance with absolute values may lead to misinterpretation of CBC data. Current Interpretive Data was last revised on 2017. Imm gran pct 1.1 % [facility] Comment: Interpretive Data Percent cell count reference ranges are not reported, since discordance with absolute values may lead to misinterpretation of CBC data. Current Interpretive Data was last revised on 2017. Lymphocyte pct 11.6 % [facility] Comment: Interpretive Data Percent cell count reference ranges are not reported, since discordance with absolute values may lead to misinterpretation of CBC data. Current Interpretive Data was last revised on 2017. Monocyte pct 12.4 % [facility] Comment: Interpretive Data Percent cell count reference ranges are not reported, since discordance with absolute values may lead to misinterpretation of CBC data. Current Interpretive Data was last revised on 2017. Eosinophil pct 0.4 % [facility] Comment: Interpretive Data Percent cell count reference ranges are not reported, since discordance with absolute values may lead to misinterpretation of CBC data. Current Interpretive Data was last revised on 2017. Basophil pct 0.2 % [facility] Comment: Interpretive Data Percent cell count reference ranges are not reported, since discordance with absolute values may lead to misinterpretation of CBC data. Current Interpretive Data was last revised on 2017. Blood 08/30/2024 5:23 AM CORNER TRIMMER OPERATOR 08/30/2024 6:42 AM CORNER TRIMMER OPERATOR us Cayden Smiley MD LAB BLOOD ORDERABLES Final Res ult [facility] [address] Department [place] [address] * (ABNORMAL) CBC with auto differential (08/30/2024 5:23 AM CORNER TRIMMER OPERATOR) WBC 8.4 3.8 - 9.9 K/cumm Hgb 7.8(L) 13.0 - 17.5 g/dL [facility] Hct 23.3(L) 38.9 - 50.3 % [facility] Plt 74(L) 150 - 400 K/cumm [facility] MPV 10.9 9.1 - 12.3 fL [facility] RBC 2.39(L) 4.30 - 5.80 M/cumm [facility] MCV 97.5(H) 81.3 - 96.4 fL [facility] MCH 32.6 27.1 - 33.3 pg [facility] MCHC 33.5 32.3 - 35.7 g/dL [facility] RDW CV 15.8(H) 11.1 - 14.9 % [facility] RDW SD 54.4(H) 35.7 - 48.1 fL [facility] NRBC abs 0.12(H) 0.00 - 0.01 K/cumm [facility] Blood 08/30/2024 5:23 AM CORNER TRIMMER OPERATOR 08/30/2024 6:42 AM CORNER TRIMMER OPERATOR us Cayden Smiley MD LAB BLOOD ORDERABLES Final Res ult [facility] [address] Department [place] [address] * (ABNORMAL) Basic metabolic panel (08/30/2024 5:23 AM CORNER TRIMMER OPERATOR) Sodium 134(L) 135 - 145 mmol/L Potassium, pl 2.9(L) 3.3 - 4.9 mmol/L [facility] Chloride 97 97 - 110 mmol/L [facility] CO2 27 22 - 32 mmol/L [facility] Anion gap 10 2 - 15 mmol/L [facility] BUN 22 6 - 25 mg/dL [facility] Creatinine 1.03 0.80 - 1.30 mg/dL [facility] Glucose 106 70 - 199 mg/dL [facility] Comment: Interpretive Data Fasting glucose >/= 126 mg/dl is diagnostic for diabetes. Fasting is defined as no caloric intake [...] 2022. Calcium 7.5(L) 8.5 - 10.3 mg/dL [facility] Blood 08/30/2024 5:23 AM CORNER TRIMMER OPERATOR 08/30/2024 6:41 AM CORNER TRIMMER OPERATOR Cayden Smiley MD LAB BLOOD ORDERABLES Final Res ult [facility] [address] Department [place] [address] * C. difficile testing Stool (08/29/2024 11:07 PM CORNER TRIMMER OPERATOR) GDH Result Positive Negative Toxin Result Negative Negative [facility] C. diff result Negative, free toxin. Negative, free toxin [facility] C. diff interp GDH+/toxin- results almost never represent true C. difficile infection (CDI). Results may represent colonization with C. difficile without CDI, detection of a bacteria other than toxigenic C. difficile, or a false negative toxin assay. If there is a high index of suspicion for CDI, additional testing by PCR is available upon request. [facility] Stool 08/29/2024 11:0 7 PM CORNER TRIMMER OPERATOR 08/29/2024 11:07 PM CORNER TRIMMER OPERATOR Kelby Gore MD LAB MICROBIOLOGY - GENERAL ORDER HOLA Final Result Performing Organization Address [facility] Co de Phone Number [facility] [address] Department [place] [address] * (ABNORMAL) Hemoglobin and hematocrit (08/29/2024 1:56 PM CORNER TRIMMER OPERATOR) Hgb 8.3(L) 13.0 - 17.5 g/dL Hct 24.5(L) 38.9 - 50.3 % [facility] Blood 08/29/2024 1:56 PM CORNER TRIMMER OPERATOR 08/29/2024 2:03 PM CORNER TRIMMER OPERATOR us Cristo Funes MD LAB BLOOD ORDERABLE S Final Result Performing Organization Address City/[facility]/ZIP Co de Phone Number [facility] [address] Department [place] [address] * Surgical pathology (08/29/2024 10:14 AM CORNER TRIMMER OPERATOR) Tissue (Esophageal biopsy) 08/29/2024 10:14 AM CORNER TRIMMER OPERATOR Narrative PATHOLOGY [facility] - 09/02/2024 8:13 AM CORNER TRIMMER OPERATOR [address] [address] Tele: Dara Paz MD - Sewing Machine Repairer Helper Note to Patients: This report may [...] the details. SURGICAL PATHOLOGY REPORT Patient Name: JONES SANABRIA Address: [address] [place] [address] Gender: M : 1965 (Age: 59) Service: Cardiology Location: [place] [address], Hospital #: [id number] Patient Type: [facility] INPATIENT Taken: 08/29/2024 Received 08/29/2024 Reported: 09/02/2024 Physician(s): Awa Reed M.D. DIAGNOSIS: Esophagus, lower third, mucosal biopsy: - Ulcerative esophagitis, nonspecific jap/09/02/2024 08:13 Examining Pathologist: Chadd Quijano M.D. Report Reviewed and Electronically Signed By Chadd Quijano M.D. SPECIMEN TYPE: A: LOWER THIRD ESOPHAGUS CLINICAL IMPRESSION AND HISTORY: Hematemesis, melena. Findings include LA grade D esophagitis with no bleeding, hiatal hernia, normal examined duodenum. GROSS DESCRIPTION: Received in formalin labeled JONES SANABRIA and lower third esophagus are multiple young tissue fragments, 1 x 0.2 x 0.1 cm in aggregate. The specimen is filtered and entirely submitted in A1. shadiaxi/08/29/2024 13:26 DMS,JXI MICROSCOPIC DESCRIPTION: Sections from the lower third esophagus show fragments of necroinflammatory ulcer bed type material with a few fragments of intact squamous epithelium. The epithelium shows focal neutrophilic infiltration. Two further evaluate the intact epithelium a GMS stain is performed to assess for subtle fungal forms and is negative in the squamous epithelium and in the necroinflammatory debris. Some degenerating superficial squamous epithelial cells are noted with occasional enlarged nuclei. To further evaluate for the presence of subtle viral components CMV and HSV1 IHC stains are performed and these are negative with good controls. No intestinal metaplasia or kurt malignant features are evident. Clerical Data Follows A; 59183, [id number], [id number], [id number] REPORT IMAGES AND/OR SCANNED DOCUMENTS ONLY VIEWABLE IN PDF FORMAT The immunohistochemical test(s) cited in this report, if any, was developed and its performance characteristics determined by [facility] Pathology Department. It has not been cleared or approved by the U.S. Food and Drug Administration. The FDA has determined that such clearance or approval is not necessary. This test is used for clinical purposes. It should not be regarded as investigational or for research. [facility] Laboratory is certified under the Clinical Laboratory Improvement Amendments of 1988 (CLIA) as qualified to perform high complexity testing. Immunostains were performed on formalin-fixed paraffin embedded tissue using a polymer diaminobenzidine chromogen detection system. Antibodies used may include clone SP1 (rabbit monoclonal, estrogen receptor), clone 1E2 (rabbit monoclonal progesterone receptor), Ki-67 (rabbit monoclonal, 30-9), CD117 (rabbit polyclonal, c-kit), and anti-Her-2/bryn (4B5) (rabbit monoclonal primary antibody). In the event that immunohistochemistry or special stains have been performed, attending physician has confirmed appropriateness of controls. Frozen section, operating room consultation, gross examination and dissection, and case sign out may have been performed in part or completely in the following laboratories: [facility], [facility], [address], [address] [place] [address], [place] [address]. us Cristo Funes MD LAB PATHOLOGY ORDER HOLA Final Result PATHOLOGY [facility] Laboratory Receiving [address] [place], [place] [id number] * EGD (08/29/2024 9:54 AM CORNER TRIMMER OPERATOR) Anatomical Region Laterality Modality Other Narrative Procedure Note Cristo Funes MD - 08/29/2024 9:54 AM CST ENDOSCOPY LAB Patient Name: Jones Sanabria Procedure Date: 08/29/2024 9:54 AM Admit Type: Inpatient Room: [facility] Date of : 1965 Instrument Name: [...] Result * Transfuse RBC (08/29/2024 7:52 AM CORNER TRIMMER OPERATOR) Blood Kelby Gore MD BLOOD TRANSFUSION ORDERABLES Fin al Result [facility] [address] Department [place] [address] * (ABNORMAL) eGFR (08/29/2024 6:29 AM CORNER TRIMMER OPERATOR) eGFR 59(L) >=60 mL/min/1. 73 m2 Comment: Interpretive Data Reference Interval Normal >/= 90 mL/min/1.73m2 Mildly decreased* 60 - 89 mL/min/1.73m2 Mildly to moderately decreased 45 - 59 mL/min/1.73m2 Moderately to severely decreased 30 - 44 mL/min/1.73m2 Severely decreased 15 - 29 mL/min/1.73m2 Kidney Failure < 15 mL/min/1.73m2 *Relative to young adult level Estimated glomerular [...] last reviewed 2021. Blood 08/29/2024 6:29 AM CORNER TRIMMER OPERATOR 08/29/2024 6:43 AM CORNER TRIMMER OPERATOR us Scott Brantley MD LAB BLOOD ORDERABLES Fin al Result [facility] [address] Department [place] [address] * (ABNORMAL) Differential, auto (08/29/2024 6:29 AM CORNER TRIMMER OPERATOR) Neutrophil abs 7.4(H) 1.5 - 6.5 K/cumm Imm gran abs 0.1 0.0 - 0.1 K/cumm [facility] Lymphocyte abs 0.9 0.8 - 3.3 K/cumm [facility] Monocyte abs 1.1(H) 0.2 - 0.8 K/cumm [facility] Eosinophil abs 0.0 0.0 - 0.5 K/cumm [facility] Basophil abs 0.0 0.0 - 0.1 K/cumm [facility] Neutrophil pct 77.8 % [facility] Comment: Interpretive Data Percent cell count reference ranges are not reported, since discordance with absolute values may lead to misinterpretation of CBC data. Current Interpretive Data was last revised on 2017. Imm gran pct 0.8 % [facility] Comment: Interpretive Data Percent cell count reference ranges are not reported, since discordance with absolute values may lead to misinterpretation of CBC data. Current Interpretive Data was last revised on 2017. Lymphocyte pct 9.4 % [facility] Comment: Interpretive Data Percent cell count reference ranges are not reported, since discordance with absolute values may lead to misinterpretation of CBC data. Current Interpretive Data was last revised on 2017. Monocyte pct 11.6 % [facility] Comment: Interpretive Data Percent cell count reference ranges are not reported, since discordance with absolute values may lead to misinterpretation of CBC data. Current Interpretive Data was last revised on 2017. Eosinophil pct 0.2 % [facility] Comment: Interpretive Data Percent cell count reference ranges are not reported, since discordance with absolute values may lead to misinterpretation of CBC data. Current Interpretive Data was last revised on 2017. Basophil pct 0.2 % [facility] Comment: Interpretive Data Percent cell count reference ranges are not reported, since discordance with absolute values may lead to misinterpretation of CBC data. Current Interpretive Data was last revised on 2017. Blood 08/29/2024 6:29 AM CORNER TRIMMER OPERATOR 08/29/2024 6:41 AM CORNER TRIMMER OPERATOR us Scott Brantley MD LAB BLOOD ORDERABLES Fin al Result [facility] [address] [place] [address] * (ABNORMAL) CBC with auto differential (08/29/2024 6:29 AM CORNER TRIMMER OPERATOR) WBC 9.5 3.8 - 9.9 K/cumm Hgb 8.0(L) 13.0 - 17.5 g/dL [facility] Hct 23.8(L) 38.9 - 50.3 % [facility] Plt 58(L) 150 - 400 K/cumm [facility] MPV 10.9 9.1 - 12.3 fL [facility] RBC 2.44(L) 4.30 - 5.80 M/cumm [facility] MCV 97.5(H) 81.3 - 96.4 fL [facility] MCH 32.8 27.1 - 33.3 pg [facility] MCHC 33.6 32.3 - 35.7 g/dL [facility] RDW CV 15.3(H) 11.1 - 14.9 % [facility] RDW SD 52.5(H) 35.7 - 48.1 fL [facility] NRBC abs 0.13(H) 0.00 - 0.01 K/cumm [facility] Blood 08/29/2024 6:29 AM CORNER TRIMMER OPERATOR 08/29/2024 6:41 AM CORNER TRIMMER OPERATOR Scott Brantley MD LAB BLOOD ORDERABLES Fin al Result Performing Organization Address [facility] Co de Phone Number [facility] [address] [place] [address] * (ABNORMAL) Manual Differential (08/29/2024 6:29 AM CORNER TRIMMER OPERATOR) Differential Auto RBC morphology Normal [facility] Platelet estimate Decreased(A ) [facility] Morphology scrn See Comment [facility] Comment:PLT: Platelet morpho logy normal Blood 08/29/2024 6:29 AM CORNER TRIMMER OPERATOR 08/29/2024 6:41 AM CORNER TRIMMER OPERATOR Scott Brantley MD LAB BLOOD ORDERABLES Fin al Result Performing Organization Address [facility] Co de Phone Number [facility] [address] Department of [employer] [place], [place] [id number] * Magnesium (08/29/2024 6:29 AM CORNER TRIMMER OPERATOR) Magnesium 1.8 1.4 - 2.5 mg/dL Blood 08/29/2024 6:29 AM CORNER TRIMMER OPERATOR 08/29/2024 6:43 AM CORNER TRIMMER OPERATOR Roman Wells NP LAB BLOOD ORDERABLES Final Result Performing Organization Address [facility] Co de Phone Number [facility] [address] Department of [employer] [place], [place] [id number] * (ABNORMAL) Basic metabolic panel (08/29/2024 6:29 AM CORNER TRIMMER OPERATOR) Pathologist [facility] Sodium 138 135 - 145 mmol/L Potassium, pl 3.4 3.3 - 4.9 mmol/L [facility] Chloride 99 97 - 110 mmol/L [facility] CO2 28 22 - 32 mmol/L [facility] Anion gap 11 2 - 15 mmol/L [facility] BUN 34(H) 6 - 25 mg/dL [facility] Creatinine 1.37(H) 0.80 - 1.30 mg/dL [facility] Glucose 141 70 - 199 mg/dL [facility] Comment: Interpretive Data Fasting glucose >/= 126 mg/dl is diagnostic for diabetes. Fasting is defined as no caloric intake [...] 2022. Calcium 7.4(L) 8.5 - 10.3 mg/dL [facility] Blood 08/29/2024 6:29 AM CORNER TRIMMER OPERATOR 08/29/2024 6:43 AM CORNER TRIMMER OPERATOR Scott Brantley MD LAB BLOOD ORDERABLES Fin al Result [facility] [facility] [address] [place] [address] * Prepare RBC (08/29/2024 2:41 AM CORNER TRIMMER OPERATOR) Pathologist [facility] Product code [id number] Unit Number [id number] [facility] Product Blood Type BPOS [facility] Dispense Status PRESUMED TRANSFUSED [facility] Blood 08/29/2024 2:41 AM CORNER TRIMMER OPERATOR 08/29/2024 2:40 AM CORNER TRIMMER OPERATOR Scott Brantley MD BLOOD BANK PRODUCT ORDER HOLA Final Result Performing Organization Address [facility]/ZIP Co de Phone Number [facility] [address] [facility] [place], [place] [id number] * (ABNORMAL) Hemoglobin and hematocrit (08/29/2024 12:51 AM CORNER TRIMMER OPERATOR) Hgb 7.3(L) 13.0 - 17.5 g/dL Hct 22.7(L) 38.9 - 50.3 % [facility] Blood 08/29/2024 12:5 1 AM CORNER TRIMMER OPERATOR 08/29/2024 12:51 AM CORNER TRIMMER OPERATOR Cristo Funes MD LAB BLOOD ORDERABLE S Final Result Performing Organization Address [facility] Co de Phone Number [facility] [address] [facility] [place], [place] [id number] * Check Sample (08/28/2024 7:16 PM CORNER TRIMMER OPERATOR) ABO Rh B Positive MBC [facility] OTHER 08/28/2024 7:1 6 PM CORNER TRIMMER OPERATOR 08/28/2024 8:04 PM CORNER TRIMMER OPERATOR Result [facility] Scott Brantley MD LAB BLOOD ORDERABLES Fin al Result Performing Organization Address [facility] Co de Phone Number [facility] [address] [facility] [place], [place] [phone] MBC * (ABNORMAL) Hemoglobin and hematocrit (08/28/2024 7:16 PM CORNER TRIMMER OPERATOR) Hgb 8.6(L) 13.0 - 17.5 g/dL Hct 26.0(L) 38.9 - 50.3 % [facility] Blood 08/28/2024 7:16 PM CORNER TRIMMER OPERATOR 08/28/2024 7:16 PM CORNER TRIMMER OPERATOR Roman Tyra Njihi CENTRAL SERVICE TECHNICIAN LAB BLOOD ORDERABLES Final Result [facility] [address] [place] [address] * Type and screen (08/28/2024 7:10 PM CORNER TRIMMER OPERATOR) ABO Rh B Positive Elvin, indirect Negative [facility] Blood 08/28/2024 7:10 PM CORNER TRIMMER OPERATOR 08/28/2024 7:21 PM CORNER TRIMMER OPERATOR Narrative [facility] - 08/28/2024 7:59 PM CORNER TRIMMER OPERATOR If not done within 72 hours prior to infusion. Has the patient had Daratumumab or Isatuximab in the past 6 months?->Unknown Scott Brantley MD LAB BLOOD BANK TEST ORDE RABTRES Final Result Performing Organization Address [facility] Co de Phone Number [facility] [address] [place] [address] from Last 3 Months [place] [address] [place] [address] [place] Advance Direct[place] For more information, please contact: [phone] * Full Code (Latest Code Status on File) Date Activated Date Inactivated Comments 08/28/2024 5:56 PM 09/02/2024 5:31 PM Care Teams Block Sorter Relationship Specialty Start Date End Date Fernie Fulton MD [address] [place] [address] PCP - General 06/13/19 Fernie Fulton MD [address] [place] [address] Internal Medicine 06/13/19
--- OUTSIDE RECORDS SUMMARY | 2024-10-16 14:54 | XMS_ITS | Referral Summary ---
Author Organization [facility] Address [address] [place] [address] Care Team Providers Care Hip Hop Dancer Name Role Phone Fernie Fulton MD Primary Care Provider [phone] Fernie Fulton MD Unavailable [phone] Encounters Date Type Department Care Team Description 4 4:30 PM DOORMAKER - 4 1:31 PM DOORMAKER Hospital Encounter [address] [phone] Ping Lopez DO Dehaan, Kevin Patrick, MD Khan, Fatima A., MD Smelser, Katelyn P., MD Acute GI bleeding (Primary Dx); Colitis Discharge Disposition: Discharge to home or self care 4 10:57 AM DOORMAKER Anesthesia Event [facility] [address] [place] [phone] Dean Negrete MD 4 10:45 AM DOORMAKER - 4 11:15 AM DOORMAKER Surgery [facility] [address] [place] [phone] Cristo Funes MD COLON BIOPSY 4 10:07 AM DOORMAKER Anesthesia Event [facility] [address] [place] [phone] MagdaTerrell schuster Flavio, 4 10:00 AM DOORMAKER - 4 10:30 AM DOORMAKER Surgery [facility] [address] [place] [phone] Cristo Funes MD ESOPHAGOGASTRODUODENOSCOPY BIOPSY 4 Orders Only [facility] Hospitalists [address] [place] [phone] Madie Duran MD from Last 3 [...] hypertension 12/15/2015 Overview (12/07/2016): HTN (hypertension), benign [place] IV diagnosis 12/15/2015 Overview (12/07/2016): Psychosocial stressors Dyslipidemia 12/15/2015 Overview (12/09/2016): Mixed dyslipidemia Abnormal echocardiography 12/15/2015 Overview (12/09/2016): Abnormal stress echocardiogram Social History Tobacco Use Types Packs/Day Years Used Date Smoking Tobacco: Former Cigarettes 0 04/03/1997 - 1978 Smokeless Tobacco: Never Tobacco Cessation:Counseling Given: No Alcohol Use Standard Drinks/Week Comments Yes 0 (1 standard drink = 0.6 oz pur e alcohol) [facility] Utilities Answer Date Recorded In the [...] or relatives? Twice a week 09/01/2024 Attends [employer] Not on file 09/01 Active Member [...] any time in the past 12 m [facility], were you homeless or living [...] on file Legal Sex Male 3:52 AM DOORMAKER Gender Identity Not on file Sexual Orientation Not on file Last Filed Vital Signs Vital Sign Reading Time Taken Comments Blood Pressure 112/64 09/02/2024 12:44 PM DOORMAKER Pulse 105 09/02/2024 12:44 PM DOORMAKER Temperature 36.9 C (98.5 F) 09/02/2024 12:44 PM DOORMAKER Respiratory Rate 18 09/02/2024 12:4 4 PM DOORMAKER Oxygen Saturation 98% 09/02/2024 12: 44 PM DOORMAKER Inhaled Oxygen Concentration - - Weight 88.4 kg (194 lb 14.2 oz) 08/28/2024 4:30 PM DOORMAKER Height 172.7 cm (5' 8 ) 08/28/2024 4:30 PM DOORMAKER Body Mass Index 29.63 08/28/2024 4:30 PM DOORMAKER Plan of Treatment Not on file Procedures Procedure Name Priority Date/Time Associated Diagnosis Comments EGFR Routine 09/02/2024 5:43 AM DOORMAKER DIFFERENTIAL AUTO Routine 09/02/2024 5:43 AM DOORMAKER MAGNESIUM Routine 09/02/2024 5:43 AM DOORMAKER BASIC METABOLIC PANEL Routine 09/02/2024 5:43 AM DOORMAKER CBC WITH AUTO DIFFERENTIAL Routine 09/02 5:43 AM DOORMAKER SURGICAL PATHOLOGY Routine 09/01/2024 11:14 AM DOORMAKER Colitis COLON BIOPSY 09/01/2024 10:57 AM DOORMAKER Colitis COLONOSCOPY 09/01/2024 10:52 AM DOORMAKER EGFR Routine 09/01/2024 5:45 AM DOORMAKER BASIC METABOLIC PANEL Routine 09/01/2024 5:[address] ABDOMEN PELVIS W CONTRAST IP Routine 12:40 PM DOORMAKER DIFFERENTIAL AUTO Routine 08/31/2024 11:59 AM DOORMAKER CBC WITH AUTO DIFFERENTIAL Routine 08/31 11:59 AM DOORMAKER STOOL CULTURE Routine 08/31/2024 11:59 AM DOORMAKER ADD ON LAB TEST Add-On 08/31/2024 11:14 AM DOORMAKER CRP (ACUTE PHASE) Routine 08/31/2024 6:01 AM DOORMAKER EGFR Routine 08/31/2024 6:01 AM DOORMAKER DIFFERENTIAL AUTO Routine 08/31/2024 6:01 AM DOORMAKER CBC WITH AUTO DIFFERENTIAL Routine 08/31 6:01 AM DOORMAKER MAGNESIUM Routine 08/31/2024 6:01 AM DOORMAKER BASIC METABOLIC PANEL Routine 08/31/2024 6:01 AM DOORMAKER CALCIUM, IONIZED Routine 08/30/2024 11:56 AM DOORMAKER US RUQ IP Routine 08/30/2024 8:29 AM DOORMAKER EGFR Routine 08/30/2024 5:23 AM DOORMAKER DIFFERENTIAL AUTO Routine 08/30/2024 5:23 AM DOORMAKER BASIC METABOLIC PANEL Routine 08/30/2024 5:23 AM DOORMAKER CBC WITH AUTO DIFFERENTIAL Routine 08/30 5:23 AM DOORMAKER C. DIFFICILE TESTING Routine 08/29/2024 11:07 PM DOORMAKER HEMOGLOBIN AND HEMATOCRIT Timed 2023 1:56 PM DOORMAKER SURGICAL PATHOLOGY Routine 08/29/2024 10:14 AM DOORMAKER Acute GI bleeding ESOPHAGOGASTRODUODENOSCOPY BIOPSY 08/29/2024 10:04 AM DOORMAKER Acute GI bleeding EGD 08/29/2024 9:54 AM DOORMAKER MANUAL DIFFERENTIAL Routine 08/29/2024 6:29 AM DOORMAKER EGFR Routine 08/29/2024 6:29 AM DOORMAKER DIFFERENTIAL AUTO Routine 08/29/2024 6:29 AM DOORMAKER MAGNESIUM Routine 08/29/2024 6:29 AM DOORMAKER CBC WITH AUTO DIFFERENTIAL Routine 08/29 6:29 AM DOORMAKER BASIC METABOLIC PANEL Routine 08/29/2024 6:29 AM DOORMAKER TRANSFUSE RED BLOOD CELLS Timed 2023 3:22 AM DOORMAKER PREPARE RBC STAT 08/29/2024 2:41 AM DOORMAKER HEMOGLOBIN AND HEMATOCRIT Timed 2023 12:51 AM DOORMAKER B CHECK SAMPLE STAT 08/28/2024 7:16 PM DOORMAKER HEMOGLOBIN AND HEMATOCRIT STAT 2023 7:16 PM DOORMAKER TYPE AND SCREEN STAT 08/28/2024 7:10 PM DOORMAKER from Last 3 Months Results * eGFR (09/02/2024 5:43 AM DOORMAKER) eGFR 72 >=60 mL/min/1. 73 m2 Comment: [...] last reviewed 2021. Blood 09/02/2024 5:43 AM DOORMAKER 09/02/2024 6:11 AM DOORMAKER us Cristo Funes MD LAB BLOOD ORDERABLE S Final Result [facility] [address] Department [place] [address] * (ABNORMAL) Differential, auto (09/02/2024 5:43 AM DOORMAKER) Monocyte abs 1.4(H) 0.2 - 0.8 K/cumm Eosinophil abs 0.1 0.0 - 0.5 K/cumm [facility] Neutrophil pct 56.0 % [facility] Comment: Interpretive Data Percent cell count reference ranges are not reported, since discordance with absolute values may lead to misinterpretation of CBC data. Current Interpretive Data was last revised on 2017. Lymphocyte pct 16.0 % [facility] Comment: Interpretive Data Percent cell count reference ranges are not reported, since discordance with absolute values may lead to misinterpretation of CBC data. Current Interpretive Data was last revised on 2017. Monocyte pct 16.8 % [facility] Comment: Interpretive Data Percent cell count reference ranges are not reported, since discordance with absolute values may lead to misinterpretation of CBC data. Current Interpretive Data was last revised on 2017. Eosinophil pct 0.8 % [facility] Comment: Interpretive Data Percent cell count reference ranges are not reported, since discordance with absolute values may lead to misinterpretation of CBC data. Current Interpretive Data was last revised on 2017. Blood 09/02/2024 5:43 AM DOORMAKER 09/02/2024 6:11 AM DOORMAKER Cristo Funes MD LAB BLOOD ORDERABLE S Final Result [facility] [address] Department [place] [address] * (ABNORMAL) CBC with auto differential (09/02/2024 5:43 AM DOORMAKER) WBC 8.5 3.8 - 9.9 K/cumm Hgb 8.2(L) 13.0 - 17.5 g/dL [facility] Hct 24.9(L) 38.9 - 50.3 % [facility] Plt 228 150 - 400 K/cumm [facility] MPV 9.3 9.1 - 12.3 fL [facility] RBC 2.60(L) 4.30 - 5.80 M/cumm [facility] MCV 95.8 81.3 - 96.4 fL [facility] MCH 31.5 27.1 - 33.3 pg [facility] MCHC 32.9 32.3 - 35.7 g/dL [facility] RDW CV 15.3(H) 11.1 - 14.9 % [facility] RDW SD 53.0(H) 35.7 - 48.1 fL [facility] NRBC abs 0.15(H) 0.00 - 0.01 K/cumm [facility] Blood 09/02/2024 5:43 AM DOORMAKER 09/02/2024 6:11 AM DOORMAKER Cristo Funes MD LAB BLOOD ORDERABLE S Final Result [facility] [address] [employer] [place] [address] * Magnesium (09/02/2024 5:43 AM DOORMAKER) [facility] Magnesium 1.6 1.4 - 2.5 mg/dL Blood 09/02/2024 5:43 AM DOORMAKER 09/02/2024 6:11 AM DOORMAKER Cristo Funes MD LAB BLOOD ORDERABLE S Final Result Performing Organization Address [facility] Co de Phone Number [facility] [address] [facility] [employer] [place] [address] * (ABNORMAL) Basic metabolic panel (09/02/2024 5:43 AM DOORMAKER) [facility] Sodium 139 135 - 145 mmol/L Potassium, pl 3.1(L) 3.3 - 4.9 mmol/L [facility] Chloride 104 97 - 110 mmol/L [facility] CO2 23 22 - 32 mmol/L [facility] Anion gap 12 2 - 15 mmol/L [facility] BUN 5(L) 6 - 25 mg/dL [facility] Creatinine 1.15 0.80 - 1.30 mg/dL [facility] Glucose 112 70 - 199 mg/dL [facility] Comment: Interpretive Data Fasting glucose >/= 126 [...] 2022. Calcium 7.8(L) 8.5 - 10.3 mg/dL [facility] Blood 09/02/2024 5:43 AM DOORMAKER 09/02/2024 6:11 AM DOORMAKER us Cristo Funes MD LAB BLOOD ORDERABLE S Final Result [facility] [address] Department [place] [address] * Surgical pathology (09/01/2024 11:14 AM DOORMAKER) Tissue (Colon, Biopsy) 09/01/2024 11:14 AM DOORMAKER Comment:For colitis Tissue (Colon, Biopsy) 09/01/2024 11:15 AM DOORMAKER Comment:For colitis Narrative PATHOLOGY [facility] - 09/02/2024 8:16 AM DOORMAKER [place] [address] [place], [place] [address] Tele: Dara Paz MD - Spanish Literature Professor Note to Patients: This report may contain [...] PATHOLOGY REPORT Patient Name: JONES SANABRIA Address: [address] [place] [address] Gender: M : 1965 (Age: 59) Service: Cardiology Location: [place] [address], Hospital #: [id number] Patient Type: [facility] INPATIENT Taken: 09/01/2024 Received 09/01/2024 Reported: 09/02/2024 [...] DESCRIPTION: A. Received in formalin labeled JONES WIGGINTON and right colon biopsy are multiple young tissue fragments, 2 x 0.2 x 0.2 cm in aggregate. The specimen is filtered and entirely submitted in A1. B. Received in formalin labeled JONES WIGGINTON and left colon biopsy are multiple young tissue fragments, 1.5 x 0.2 x 0.2 cm in aggregate. The specimen is filtered and entirely submitted in B1. jxi/09/01/2024 13:23 YAIR,CAIN MICROSCOPIC DESCRIPTION: Sections of the right colon [...] architecture is maintained. Clerical Data Follows A; [id number] B; [id number] REPORT IMAGES AND/OR SCANNED DOCUMENTS ONLY VIEWABLE IN PDF FORMAT The immunohistochemical test(s) cited in this report, if any, was developed and its performance characteristics determined by [facility]. It has not been cleared or approved by the U.S. Food and Drug Administration. The FDA has determined that such clearance or approval is not necessary. This test is used for clinical purposes. It should not be regarded as investigational or for research. [facility] is certified under the Clinical [...] part or completely in the following laboratories: [facility], [address] [facility], [place], [place] [address] [place] [address], [address] [place] [address]. us Cristo Funes MD LAB PATHOLOGY ORDER HOLA Final Result PATHOLOGY [facility] Laboratory Receiving [address] [place] [address] * Colonoscopy (09/01/2024 10:52 AM DOORMAKER) Anatomical Region Laterality Modality Other Narrative Procedure Note Cristo Funes MD - 09/01/2024 10:52 AM CST ENDOSCOPY LAB Patient Name: Jones Sanabria Procedure Date: 09/01/2024 10:52AM Admit Type: Inpatient Room: [facility] Date of : 1965 Instrument Name: [id number] [...] Final Result * eGFR (09/01/2024 5:45 AM DOORMAKER) eGFR 82 >=60 mL/min/1. 73 m2 Comment: [...] last reviewed 2021. Blood 09/01/2024 5:45 AM DOORMAKER 09/01/2024 6:26 AM DOORMAKER us Cayden Smiley MD LAB BLOOD ORDERABLES Final Res ult [facility] [address] Department [place] [address] * (ABNORMAL) Basic metabolic panel (09/01/2024 5:45 AM DOORMAKER) Sodium 137 135 - 145 mmol/L Potassium, pl 3.2(L) 3.3 - 4.9 mmol/L [facility] Chloride 100 97 - 110 mmol/L [facility] CO2 24 22 - 32 mmol/L [facility] Anion gap 13 2 - 15 mmol/L [facility] BUN 7 6 - 25 mg/dL [facility] Creatinine 1.04 0.80 - 1.30 mg/dL [facility] Glucose 128 70 - 199 mg/dL [facility] Comment: Interpretive Data Fasting glucose >/= 126 [...] 2022. Calcium 8.0(L) 8.5 - 10.3 mg/dL [facility] Blood 09/01/2024 5:45 AM DOORMAKER 09/01/2024 6:26 AM DOORMAKER us Cayden Smiley MD LAB BLOOD ORDERABLES Final Res ult [facility] [address] Department [place] [address] * CT Abdomen Pelvis W Contrast (08/31/2024 12:40 PM DOORMAKER) Anatomical Region Laterality Modality Body N/A Computed Tomogra phy 08/31/2024 4:39 PM DOORMAKER Impressions 08/31/2024 4:39 PM DOORMAKER 1. Diffuse pancolitis, likely infectious/inflammatory. 2. Circumferential urinary bladder wall thickening, which may represent reactive changes or superimposed cystitis. Mural thickening is exaggerated by degree of decompression. Electronically signed by: Dejan Chino D.O. Narrative 08/31/2024 4:39 PM DOORMAKER EXAMINATION: CT ABDOMEN PELVIS W CONTRAST HISTORY: [...] * (ABNORMAL) Differential, auto (08/31/2024 11:59 AM DOORMAKER) Neutrophil abs 6.3 1.5 - 6.5 K/cumm Imm gran abs 0.4(H) 0.0 - 0.1 K/cumm [facility] Lymphocyte abs 1.0 0.8 - 3.3 K/cumm [facility] Monocyte abs 1.6(H) 0.2 - 0.8 K/cumm [facility] Eosinophil abs 0.0 0.0 - 0.5 K/cumm [facility] Basophil abs 0.0 0.0 - 0.1 K/cumm [facility] Neutrophil pct 67.2 % [facility] Comment: Interpretive Data Percent cell count reference ranges are not reported, since discordance with absolute values may lead to misinterpretation of CBC data. Current Interpretive Data was last revised on 2017. Imm gran pct 4.2 % [facility] Comment: Interpretive Data Percent cell count reference ranges are not reported, since discordance with absolute values may lead to misinterpretation of CBC data. Current Interpretive Data was last revised on 2017. Lymphocyte pct 10.5 % [facility] Comment: Interpretive Data Percent cell count reference ranges are not reported, since discordance with absolute values may lead to misinterpretation of CBC data. Current Interpretive Data was last revised on 2017. Monocyte pct 17.4 % [facility] Comment: Interpretive Data Percent cell count reference ranges are not reported, since discordance with absolute values may lead to misinterpretation of CBC data. Current Interpretive Data was last revised on 2017. Eosinophil pct 0.3 % [facility] Comment: Interpretive Data Percent cell count reference ranges are not reported, since discordance with absolute values may lead to misinterpretation of CBC data. Current Interpretive Data was last revised on 2017. Basophil pct 0.4 % [facility] Comment: Interpretive Data Percent cell count reference ranges are not reported, since discordance with absolute values may lead to misinterpretation of CBC data. Current Interpretive Data was last revised on 2017. Blood 08/31/2024 11:5 9 AM DOORMAKER 08/31/2024 11:59 AM DOORMAKER us Cayden Smiley MD LAB BLOOD ORDERABLES Final Res ult [facility] [address] Department [place] [address] * (ABNORMAL) CBC with auto differential (08/31/2024 11:59 AM DOORMAKER) WBC 9.3 3.8 - 9.9 K/cumm Hgb 9.7(L) 13.0 - 17.5 g/dL [facility] Hct 28.5(L) 38.9 - 50.3 % [facility] Plt 165 150 - 400 K/cumm [facility] MPV 10.0 9.1 - 12.3 fL [facility] RBC 2.98(L) 4.30 - 5.80 M/cumm [facility] MCV 95.6 81.3 - 96.4 fL [facility] MCH 32.6 27.1 - 33.3 pg [facility] MCHC 34.0 32.3 - 35.7 g/dL [facility] RDW CV 15.0(H) 11.1 - 14.9 % [facility] RDW SD 51.8(H) 35.7 - 48.1 fL [facility] NRBC abs 0.09(H) 0.00 - 0.01 K/cumm [facility] Blood 08/31/2024 11:5 9 AM DOORMAKER 08/31/2024 12:11 PM DOORMAKER Cayden Smiley MD LAB BLOOD ORDERABLES Final Res ult Performing Organization Address City/[facility]/ZIP Co de Phone Number [facility] [address] [facility] [employer] [place] [address] * Stool culture Stool Rectum (08/31/2024 11:59 AM DOORMAKER) Direct Specimen Exam Shiga Toxin Testing: Negative for: Shigatoxin of enterohemorrhagic E.coli. Report Final Report: No Salmonella, Shigella, Aeromonas, Plesiomonas, Yersinia, Campylobacter, or E.coli O157:H7 isolated [facility] Stool (Rectum) 08/31/2024 11 :59 AM DOORMAKER 08/31/2024 3:13 PM DOORMAKER Narrative [facility] - 09/03/2024 2:00 PM DOORMAKER This specimen is screened for the presence of Aeromonas, Campylobacter, E.coli-0157:H7, Plesiomonas, Salmonella, Shigella, Shiga Toxin producing E. coli, and Yersinia. Ai NARAYAN LAB MICROBIOLOGY - GENERAL OR DERABLES Final Result Performing Organization Address [facility] Co de Phone Number [facility] [address] [employer] [place] [address] * CRP - Add on lab test (08/31/2024 11:14 AM DOORMAKER) Acceptable Yes Blood 08/31/2024 11:1 4 AM DOORMAKER 08/31/2024 11:14 AM DOORMAKER Narrative [facility] - 08/31/2024 11:14 AM DOORMAKER Name of Test->CRP Ai NARAYAN LAB BLOOD ORDERABLES Final Re sult Performing Organization Address [facility]/ZIP Co de Phone Number [facility] [address] [employer] [place] [address] * eGFR (08/31/2024 6:01 AM DOORMAKER) eGFR 89 >=60 mL/min/1. 73 m2 Comment: [...] last reviewed 2021. Blood 08/31/2024 6:01 AM DOORMAKER 08/31/2024 7:08 AM DOORMAKER us Cayden Smiley MD LAB BLOOD ORDERABLES Final Res ult [facility] [address] Department [place] [address] * (ABNORMAL) Differential, auto (08/31/2024 6:01 AM DOORMAKER) Pathologist [facility] Neutrophil abs 8.4(H) 1.5 - 6.5 K/cumm Imm gran abs 0.3(H) 0.0 - 0.1 K/cumm [facility] Lymphocyte abs 1.3 0.8 - 3.3 K/cumm [facility] Monocyte abs 2.0(H) 0.2 - 0.8 K/cumm [facility] Eosinophil abs 0.0 0.0 - 0.5 K/cumm [facility] Basophil abs 0.1 0.0 - 0.1 K/cumm [facility] Neutrophil pct 69.4 % [facility] Comment: Interpretive Data Percent cell count reference ranges are not reported, since discordance with absolute values may lead to misinterpretation of CBC data. Current Interpretive Data was last revised on 2017. Imm gran pct 2.3 % [facility] Comment: Interpretive Data Percent cell count reference ranges are not reported, since discordance with absolute values may lead to misinterpretation of CBC data. Current Interpretive Data was last revised on 2017. Lymphocyte pct 10.7 % [facility] Comment: Interpretive Data Percent cell count reference ranges are not reported, since discordance with absolute values may lead to misinterpretation of CBC data. Current Interpretive Data was last revised on 2017. Monocyte pct 16.6 % [facility] Comment: Interpretive Data Percent cell count reference ranges are not reported, since discordance with absolute values may lead to misinterpretation of CBC data. Current Interpretive Data was last revised on 2017. Eosinophil pct 0.3 % [facility] Comment: Interpretive Data Percent cell count reference ranges are not reported, since discordance with absolute values may lead to misinterpretation of CBC data. Current Interpretive Data was last revised on 2017. Basophil pct 0.7 % [facility] Comment: Interpretive Data Percent cell count reference ranges are not reported, since discordance with absolute values may lead to misinterpretation of CBC data. Current Interpretive Data was last revised on 2017. Blood 08/31/2024 6:01 AM DOORMAKER 08/31/2024 7:08 AM DOORMAKER us Cayden Smiley MD LAB BLOOD ORDERABLES Final Res ult [facility] [address] Department [place] [address] * (ABNORMAL) CBC with auto differential (08/31/2024 6:01 AM DOORMAKER) WBC 12.1(H) 3.8 - 9.9 K/cumm Hgb 10.5(L) 13.0 - 17.5 g/dL [facility] Comment:Hemoglobin delta due to apparent blood transfusion. Hct 31.2(L) 38.9 - 50.3 % [facility] Plt 149(L) 150 - 400 K/cumm [facility] MPV 10.6 9.1 - 12.3 fL [facility] RBC 3.24(L) 4.30 - 5.80 M/cumm [facility] MCV 96.3 81.3 - 96.4 fL [facility] MCH 32.4 27.1 - 33.3 pg [facility] MCHC 33.7 32.3 - 35.7 g/dL [facility] RDW CV 15.0(H) 11.1 - 14.9 % [facility] RDW SD 51.6(H) 35.7 - 48.1 fL [facility] NRBC abs 0.15(H) 0.00 - 0.01 K/cumm [facility] Blood 08/31/2024 6:01 AM DOORMAKER 08/31/2024 7:08 AM DOORMAKER Cayden Smiley MD LAB BLOOD ORDERABLES Final Res ult Performing Organization Address City/[facility]/ZIP Co de Phone Number [facility] [address] [employer] [place], [place] [id number] * (ABNORMAL) CRP (acute phase) (08/31/2024 6:01 AM DOORMAKER) CRP 85.5(H) <=10.0 mg/L Blood 08/31/2024 6:01 AM DOORMAKER 08/31/2024 7:08 AM DOORMAKER Cayden Smiley MD LAB BLOOD ORDERABLES Final Res ult [facility] [address] [employer] [place], [place] [id number] * Magnesium (08/31/2024 6:01 AM DOORMAKER) Magnesium 1.6 1.4 - 2.5 mg/dL Blood 08/31/2024 6:01 AM DOORMAKER 08/31/2024 7:08 AM DOORMAKER Cayden Smiley MD LAB BLOOD ORDERABLES Final Res ult Performing Organization Address City/[facility] Co de Phone Number [facility] [address] Department [place] [address] * Basic metabolic panel (08/31/2024 6:01 AM DOORMAKER) Pathologist [facility] Sodium 136 135 - 145 mmol/L Potassium, pl 3.5 3.3 - 4.9 mmol/L [facility] Chloride 100 97 - 110 mmol/L [facility] CO2 25 22 - 32 mmol/L [facility] Anion gap 11 2 - 15 mmol/L [facility] BUN 10 6 - 25 mg/dL [facility] Creatinine 0.97 0.80 - 1.30 mg/dL [facility] Glucose 132 70 - 199 mg/dL [facility] Comment: Interpretive Data Fasting glucose >/= 126 [...] 2022. Calcium 8.6 8.5 - 10.3 mg/dL [facility] Blood 08/31/2024 6:01 AM DOORMAKER 08/31/2024 7:08 AM DOORMAKER Cayden Smiley MD LAB BLOOD ORDERABLES Final Res ult Performing Organization Address City/[facility]/ZIP Co de Phone Number [facility] [address] Department [place] [address] * (ABNORMAL) Calcium, ionized (08/30/2024 11:56 AM DOORMAKER) Calcium, Ionized 3.61(L) 4.50 - 5.10 mg/dL Blood 08/30/2024 11:5 6 AM DOORMAKER 08/30/2024 11:57 AM DOORMAKER us Cayden Smiley MD LAB BLOOD ORDERABLES Final Res ult [facility] [address] Department [place] [address] * US RUQ (08/30/2024 8:29 AM DOORMAKER) Anatomical Region Laterality Modality Abdomen N/A Ultrasound 08/30/2024 8:36 AM DOORMAKER Impressions 08/30/2024 8:36 AM DOORMAKER 1. Increased hepatic echogenicity consistent with hepatic steatosis. 2. Gallbladder containing stones and sludge without evidence of acute cholecystitis. Electronically signed by: Dean Pichardo M.D. Narrative 08/30/2024 8:36 AM DOORMAKER EXAMINATION: LIMITED ABDOMINAL SONOGRAM HISTORY: Concern for [...] inal Result * eGFR (08/30/2024 5:23 AM DOORMAKER) eGFR 83 >=60 mL/min/1. 73 m2 Comment: [...] last reviewed 2021. Blood 08/30/2024 5:23 AM DOORMAKER 08/30/2024 6:41 AM DOORMAKER us Cayden Smiley MD LAB BLOOD ORDERABLES Final Res ult [facility] [address] Department [place] [address] * (ABNORMAL) Differential, auto (08/30/2024 5:23 AM DOORMAKER) Neutrophil abs 6.2 1.5 - 6.5 K/cumm Imm gran abs 0.1 0.0 - 0.1 K/cumm [facility] Lymphocyte abs 1.0 0.8 - 3.3 K/cumm [facility] Monocyte abs 1.0(H) 0.2 - 0.8 K/cumm [facility] Eosinophil abs 0.0 0.0 - 0.5 K/cumm [facility] Basophil abs 0.0 0.0 - 0.1 K/cumm [facility] Neutrophil pct 74.3 % [facility] Comment: Interpretive Data Percent cell count reference ranges are not reported, since discordance with absolute values may lead to misinterpretation of CBC data. Current Interpretive Data was last revised on 2017. Imm gran pct 1.1 % [facility] Comment: Interpretive Data Percent cell count reference ranges are not reported, since discordance with absolute values may lead to misinterpretation of CBC data. Current Interpretive Data was last revised on 2017. Lymphocyte pct 11.6 % [facility] Comment: Interpretive Data Percent cell count reference ranges are not reported, since discordance with absolute values may lead to misinterpretation of CBC data. Current Interpretive Data was last revised on 2017. Monocyte pct 12.4 % [facility] Comment: Interpretive Data Percent cell count reference ranges are not reported, since discordance with absolute values may lead to misinterpretation of CBC data. Current Interpretive Data was last revised on 2017. Eosinophil pct 0.4 % [facility] Comment: Interpretive Data Percent cell count reference ranges are not reported, since discordance with absolute values may lead to misinterpretation of CBC data. Current Interpretive Data was last revised on 2017. Basophil pct 0.2 % [facility] Comment: Interpretive Data Percent cell count reference ranges are not reported, since discordance with absolute values may lead to misinterpretation of CBC data. Current Interpretive Data was last revised on 2017. Blood 08/30/2024 5:23 AM DOORMAKER 08/30/2024 6:42 AM DOORMAKER us Cayden Smiley MD LAB BLOOD ORDERABLES Final Res ult [facility] [address] Department [place] [address] * (ABNORMAL) CBC with auto differential (08/30/2024 5:23 AM DOORMAKER) [facility] WBC 8.4 3.8 - 9.9 K/cumm Hgb 7.8(L) 13.0 - 17.5 g/dL [facility] Hct 23.3(L) 38.9 - 50.3 % [facility] Plt 74(L) 150 - 400 K/cumm [facility] MPV 10.9 9.1 - 12.3 fL [facility] RBC 2.39(L) 4.30 - 5.80 M/cumm [facility] MCV 97.5(H) 81.3 - 96.4 fL [facility] MCH 32.6 27.1 - 33.3 pg [facility] MCHC 33.5 32.3 - 35.7 g/dL [facility] RDW CV 15.8(H) 11.1 - 14.9 % [facility] RDW SD 54.4(H) 35.7 - 48.1 fL [facility] NRBC abs 0.12(H) 0.00 - 0.01 K/cumm [facility] Blood 08/30/2024 5:23 AM DOORMAKER 08/30/2024 6:42 AM DOORMAKER us Cayden Smiley MD LAB BLOOD ORDERABLES Final Res ult [facility] [address] Department [place] [address] * (ABNORMAL) Basic metabolic panel (08/30/2024 5:23 AM DOORMAKER) [facility] Sodium 134(L) 135 - 145 mmol/L Potassium, pl 2.9(L) 3.3 - 4.9 mmol/L [facility] Chloride 97 97 - 110 mmol/L [facility] CO2 27 22 - 32 mmol/L [facility] Anion gap 10 2 - 15 mmol/L [facility] BUN 22 6 - 25 mg/dL [facility] Creatinine 1.03 0.80 - 1.30 mg/dL [facility] Glucose 106 70 - 199 mg/dL [facility] Comment: Interpretive Data Fasting glucose >/= 126 [...] 2022. Calcium 7.5(L) 8.5 - 10.3 mg/dL [facility] Blood 08/30/2024 5:23 AM DOORMAKER 08/30/2024 6:41 AM DOORMAKER Cayden Smiley MD LAB BLOOD ORDERABLES Final Res ult [facility] [address] Department [place] [address] * C. difficile testing Stool (08/29/2024 11:07 PM DOORMAKER) Pathologist [facility] GDH Result Positive Negative Toxin Result Negative Negative [facility] C. diff result Negative, free toxin. Negative, free toxin [facility] C. diff interp GDH+/toxin- results almost never represent true C. difficile infection (CDI). Results may represent colonization with C. difficile without CDI, detection of a bacteria other than toxigenic C. difficile, or a false negative toxin assay. If there is a high index of suspicion for CDI, additional testing by PCR is available upon request. [facility] Stool 08/29/2024 11:0 7 PM DOORMAKER 08/29/2024 11:07 PM DOORMAKER Kelby Gore MD LAB MICROBIOLOGY - GENERAL ORDER HOLA Final Result Performing Organization Address City/[facility]/ZIP Co de Phone Number [facility] [address] Department [place] [address] * (ABNORMAL) Hemoglobin and hematocrit (08/29/2024 1:56 PM DOORMAKER) Hgb 8.3(L) 13.0 - 17.5 g/dL Hct 24.5(L) 38.9 - 50.3 % [facility] Blood 08/29/2024 1:56 PM DOORMAKER 08/29/2024 2:03 PM DOORMAKER us Cristo Funes MD LAB BLOOD ORDERABLE S Final Result [facility] [address] Department [place] [address] * Surgical pathology (08/29/2024 10:14 AM DOORMAKER) Tissue (Esophageal biopsy) 08/29/2024 10:14 AM DOORMAKER Narrative PATHOLOGY [facility] - 09/02/2024 8:13 AM DOORMAKER [place] [id number] [place], [place] [address] Tele: Dara Paz MD - Spanish Literature Professor Note to Patients: This report may contain [...] PATHOLOGY REPORT Patient Name: JONES SANABRIA Address: [address] [place] [id number] Gender: M : 1965 (Age: 59) Service: Cardiology Location: [place] [address], Hospital #: [id number] Patient Type: [facility] [place] [place] INPATIENT Taken: 08/29/2024 Received 08/29/2024 Reported: 09/02/2024 Physician(s): Cristo Funes M.D. Fernie Fulton M.D. DIAGNOSIS: [...] is filtered and entirely submitted in A1. jxi/08/29/2024 13:26 DMS,JXI MICROSCOPIC DESCRIPTION: Sections from the [...] features are evident. Clerical Data Follows A; [id number], 70913, [id number], [id number] REPORT IMAGES AND/OR SCANNED DOCUMENTS ONLY VIEWABLE IN PDF FORMAT The immunohistochemical test(s) cited in this report, if any, was developed and its performance characteristics determined by [facility] Pathology Department. It has not been cleared or approved by the U.S. Food and Drug Administration. The FDA has determined that such clearance or approval is not necessary. This test is used for clinical purposes. It should not be regarded as investigational or for research. [facility] is certified under the Clinical [...] part or completely in the following laboratories: [facility], [address] [place] [address], [place], [place] [address] [place] [address], [address] [place] [address]. us Cristo Funes MD LAB PATHOLOGY ORDER OHLA Final Result PATHOLOGY [facility] Laboratory Receiving [address] [place] [address] * EGD (08/29/2024 9:54 AM DOORMAKER) Anatomical Region Laterality Modality Other Narrative Procedure Note Cristo Funes MD - 08/29/2024 9:54 AM CST ENDOSCOPY LAB Patient Name: Jones Sanabria Procedure Date: 08/29/2024 9:54 AM Admit Type: Inpatient Room: [facility] 3 Date of : 1965 Instrument [...] Result * Transfuse RBC (08/29/2024 7:52 AM DOORMAKER) Blood Kelby Gore MD BLOOD TRANSFUSION ORDERABLES Fin al Result Performing Organization Address [facility] Co de Phone Number [facility] [address] [employer] [place] [address] * (ABNORMAL) eGFR (08/29/2024 6:29 AM DOORMAKER) eGFR 59(L) >=60 mL/min/1. 73 m2 Comment: [...] last reviewed 2021. Blood 08/29/2024 6:29 AM DOORMAKER 08/29/2024 6:43 AM DOORMAKER us Scott Brantley MD LAB BLOOD ORDERABLES Fin al Result Performing Organization Address City/[facility]/ZIP Co de Phone Number [facility] [address] [employer] [place] [address] * (ABNORMAL) Differential, auto (08/29/2024 6:29 AM DOORMAKER) Neutrophil abs 7.4(H) 1.5 - 6.5 K/cumm Imm gran abs 0.1 0.0 - 0.1 K/cumm [facility] Lymphocyte abs 0.9 0.8 - 3.3 K/cumm [facility] Monocyte abs 1.1(H) 0.2 - 0.8 K/cumm [facility] Eosinophil abs 0.0 0.0 - 0.5 K/cumm [facility] Basophil abs 0.0 0.0 - 0.1 K/cumm [facility] Neutrophil pct 77.8 % [facility] Comment: Interpretive Data Percent cell count reference ranges are not reported, since discordance with absolute values may lead to misinterpretation of CBC data. Current Interpretive Data was last revised on 2017. Imm gran pct 0.8 % [facility] Comment: Interpretive Data Percent cell count reference ranges are not reported, since discordance with absolute values may lead to misinterpretation of CBC data. Current Interpretive Data was last revised on 2017. Lymphocyte pct 9.4 % [facility] Comment: Interpretive Data Percent cell count reference ranges are not reported, since discordance with absolute values may lead to misinterpretation of CBC data. Current Interpretive Data was last revised on 2017. Monocyte pct 11.6 % [facility] Comment: Interpretive Data Percent cell count reference ranges are not reported, since discordance with absolute values may lead to misinterpretation of CBC data. Current Interpretive Data was last revised on 2017. Eosinophil pct 0.2 % [facility] Comment: Interpretive Data Percent cell count reference ranges are not reported, since discordance with absolute values may lead to misinterpretation of CBC data. Current Interpretive Data was last revised on 2017. Basophil pct 0.2 % [facility] Comment: Interpretive Data Percent cell count reference ranges are not reported, since discordance with absolute values may lead to misinterpretation of CBC data. Current Interpretive Data was last revised on 2017. Blood 08/29/2024 6:29 AM DOORMAKER 08/29/2024 6:41 AM DOORMAKER us Scott Brantley MD LAB BLOOD ORDERABLES Fin al Result [facility] [address] Department [place] [address] * (ABNORMAL) CBC with auto differential (08/29/2024 6:29 AM DOORMAKER) [facility] WBC 9.5 3.8 - 9.9 K/cumm Hgb 8.0(L) 13.0 - 17.5 g/dL [facility] Hct 23.8(L) 38.9 - 50.3 % [facility] Plt 58(L) 150 - 400 K/cumm [facility] MPV 10.9 9.1 - 12.3 fL [facility] RBC 2.44(L) 4.30 - 5.80 M/cumm [facility] MCV 97.5(H) 81.3 - 96.4 fL [facility] MCH 32.8 27.1 - 33.3 pg [facility] MCHC 33.6 32.3 - 35.7 g/dL [facility] RDW CV 15.3(H) 11.1 - 14.9 % [facility] RDW SD 52.5(H) 35.7 - 48.1 fL [facility] NRBC abs 0.13(H) 0.00 - 0.01 K/cumm [facility] Blood 08/29/2024 6:29 AM DOORMAKER 08/29/2024 6:41 AM DOORMAKER Scott Brantley MD LAB BLOOD ORDERABLES Fin al Result [facility] [address] Department [place] [address] * (ABNORMAL) Manual Differential (08/29/2024 6:29 AM DOORMAKER) [facility] Differential Auto RBC morphology Normal [facility] Platelet estimate Decreased(A ) [facility] Morphology scrn See Comment [facility] Comment:PLT: Platelet morpho logy normal Blood 08/29/2024 6:29 AM DOORMAKER 08/29/2024 6:41 AM DOORMAKER Scott Brantley MD LAB BLOOD ORDERABLES Fin al Result [facility] [address] [place] [address] * Magnesium (08/29/2024 6:29 AM DOORMAKER) [facility] Magnesium 1.8 1.4 - 2.5 mg/dL Blood 08/29/2024 6:29 AM DOORMAKER 08/29/2024 6:43 AM DOORMAKER Roman Wells NP LAB BLOOD ORDERABLES Final Result Performing Organization Address [facility] Co de Phone Number [facility] [address] [employer] [place] [address] * (ABNORMAL) Basic metabolic panel (08/29/2024 6:29 AM DOORMAKER) [facility] Sodium 138 135 - 145 mmol/L Potassium, pl 3.4 3.3 - 4.9 mmol/L [facility] Chloride 99 97 - 110 mmol/L [facility] CO2 28 22 - 32 mmol/L [facility] Anion gap 11 2 - 15 mmol/L [facility] BUN 34(H) 6 - 25 mg/dL [facility] Creatinine 1.37(H) 0.80 - 1.30 mg/dL [facility] Glucose 141 70 - 199 mg/dL [facility] Comment: Interpretive Data Fasting glucose >/= 126 [...] 2022. Calcium 7.4(L) 8.5 - 10.3 mg/dL [facility] Blood 08/29/2024 6:29 AM DOORMAKER 08/29/2024 6:43 AM DOORMAKER Scott Brantley MD LAB BLOOD ORDERABLES Fin al Result Performing Organization Address [facility]/ZIP Co de Phone Number [facility] [address] [employer] [place] [address] * Prepare RBC (08/29/2024 2:41 AM DOORMAKER) Pathologist [facility] Product code [id number] Unit Number [id number] [facility] Product Blood Type BPOS [facility] Dispense Status PRESUMED TRANSFUSED [facility] Blood 08/29/2024 2:41 AM DOORMAKER 08/29/2024 2:40 AM DOORMAKER Scott Brantley MD BLOOD BANK PRODUCT ORDER HOLA Final Result Performing Organization Address [facility] Co de Phone Number [facility] [address] [employer] [place], [place] [id number] * (ABNORMAL) Hemoglobin and hematocrit (08/29/2024 12:51 AM DOORMAKER) [facility] Hgb 7.3(L) 13.0 - 17.5 g/dL Hct 22.7(L) 38.9 - 50.3 % [facility] Blood 08/29/2024 12:5 1 AM DOORMAKER 08/29/2024 12:51 AM DOORMAKER us Cristo Funes MD LAB BLOOD ORDERABLE S Final Result Performing Organization Address [facility] Co de Phone Number [facility] [address] [employer] [place] [address] * Check Sample (08/28/2024 7:16 PM DOORMAKER) Pathologist [facility] ABO Rh B Positive MBC HCLL OTHER 08/28/2024 7:16 PM DOORMAKER 08/28/2024 8:04 PM DOORMAKER Scott Brantley MD LAB BLOOD ORDERABLES Fin al Result Performing Organization Address [facility] Co de Phone Number [facility] [address] [employer] [place], [place] [id number] MBC * (ABNORMAL) Hemoglobin and hematocrit (08/28/2024 7:16 PM DOORMAKER) Hgb 8.6(L) 13.0 - 17.5 g/dL Hct 26.0(L) 38.9 - 50.3 % [facility] Blood 08/28/2024 7:16 PM DOORMAKER 08/28/2024 7:16 PM DOORMAKER Roman Wells NP LAB BLOOD ORDERABLES Final Result Performing Organization Address [facility] de Phone Number [facility] [address] [employer] [place], [place] [address] * Type and screen (08/28/2024 7:10 PM DOORMAKER) ABO Rh B Positive Elvin, indirect Negative [facility] Blood 08/28/2024 7:10 PM DOORMAKER 08/28/2024 7:21 PM DOORMAKER Narrative [facility] - 08/28/2024 7:59 PM DOORMAKER If not done within 72 hours prior to infusion. Has the patient had Daratumumab or Isatuximab in the past 6 months?->Unknown Scott Brantley MD LAB BLOOD BANK TEST ORDE RABLES Final Result Performing Organization Address [facility] Co de Phone Number [facility] [address] [facility] [employer] [place] [address] from Last 3 Months Insurance [facility] CHOICE PLUS [id number] [place] Advance Directives For more information, please contact: [phone] * Full Code (Latest Code Status on File) Date Activated Date Inactivated Comments 08/28/2024 5:56 PM 09/02/2024 5:31 PM Care Teams Hip Hop Dancer Relationship Specialty Start Date End Date Fernie Fulton MD [address] [place] [address] PCP - General 06/13/19 Fernie Fulton MD [address] [place] [address] Internal Medicine 06/13/19
[2024-10-16 15:54] LABS: Basophils Percent Auto 0.5 % (0.2-1.2); Eosinophils Absolute Auto 0.1 K/mm3 (0-0.3); Eosinophils Percent Auto 1.3 % (0-4.4); Hematocrit 39.2 % (42.0-52.0); Hemoglobin 12.1 g/dL (14.0-18.0); Immature Granulocyte Absolute 0.02 K/mm3 (0.00-0.031); Immature Granulocyte Percent A 0.3 % (0-0.5); Lymphocytes Absolute Auto 1.47 K/mm3 (0.9-3.2); Lymphocytes Percent Auto 18.5 % (18.3-44.2); Mean Corpuscular HGB Conc 30.9 g/dl (32-36); Mean Corpuscular Hemoglobin 27.7 pg (26-34); Mean Corpuscular Volume 89.7 fl (80-100); Mean Platelet Volume 10.2 fl (7.4-10.4); Monocytes Absolute Auto 0.7 K/mm3 (0.1-0.6); Monocytes Percent Auto 9.3 % (2.6-8.5); Neutrophils Absolute Auto 5.6 K/mm3 (1.3-6.7); Neutrophils Percent Auto 70.1 % (45.5-73.1); Platelet Count Result 186 k/mm3 (150-375); Red Blood Count 4.37 M/mm3 (4.6-6.20)
[2024-10-16 16:05] LABS: Alanine Aminotransferase 19 U/L (6-50); Albumin Level 4.4 g/dL (3.5-5.1); Alkaline Phosphatase 61 U/L (38-126); Anion Gap 8 mmol/L (4-12); Aspartate Amino Transferase 24 U/L (17-59); Bilirubin,Total 0.7 mg/dL (0.2-1.3); Blood Urea Nitrogen 13 mg/dL (9-20); Calcium 9.4 mg/dL (8.4-10.2); Carbon Dioxide 30 mmol/L (22-30); Chloride 102 mmol/L (98-107); Estimated Glomerular Filt Rate > 60; Glucose 93 mg/dL (65-110); Potassium 4.3 mmol/L (3.4-5.0); Sodium 140 mmol/L (137-145)
[2024-10-17 09:43] LABS: Cholesterol 132 mg/dL (0-200); HDL Direct 53 mg/dL; Triglycerides 154 mg/dL (<150)
[2024-10-17 09:54] LABS: LDL Cholesterol Direct 61 mg/dL
[2024-10-17 11:02] LABS: Hemoglobin A1C 4.7 % (<5.7)
== END 2024-10-16 14:50 | disposition home or self-care (01) ==
PROVIDERS: PCP Internal Medicine; Visit Provider Internal Medicine
DX: D64.9 Anemia, unspecified (principal); Z00.01 Encounter for general adult medical examination with abnormal findings; R53.83 Other fatigue; I10 Essential (primary) hypertension; E78.5 Hyperlipidemia, unspecified; D50.9 Iron deficiency anemia, unspecified; Z79.899 Other long term (current) drug therapy; E55.9 Vitamin D deficiency, unspecified
CPT/HCPCS: 36415; 80053; 80061; 83036; 84443; 85025

== ENCOUNTER 2025-02-26 15:18 | Outpatient (CLI) | payer BC, SELFPAY ==
[2025-02-26 15:56] LABS: Basophils Absolute Auto 0.1 K/mm3 (0.0-0.1); Basophils Percent Auto 0.6 % (0.2-1.2); Eosinophils Absolute Auto 0.1 K/mm3 (0-0.3); Hemoglobin 13.8 g/dL (14.0-18.0); Immature Granulocyte Absolute 0.15 K/mm3 (0.00-0.031); Immature Granulocyte Percent A 1.7 % (0-0.5); Lymphocytes Absolute Auto 1.36 K/mm3 (0.9-3.2); Lymphocytes Percent Auto 15.2 % (18.3-44.2); Mean Corpuscular HGB Conc 31.4 g/dl (32-36); Mean Corpuscular Hemoglobin 30.1 pg (26-34); Mean Corpuscular Volume 95.9 fl (80-100); Mean Platelet Volume 9.6 fl (7.4-10.4); Monocytes Absolute Auto 1.3 K/mm3 (0.1-0.6); Neutrophils Absolute Auto 5.9 K/mm3 (1.3-6.7); Neutrophils Percent Auto 66.5 % (45.5-73.1); Platelet Count Result 211 k/mm3 (150-375); Red Blood Count 4.59 M/mm3 (4.6-6.20); Red Cell Distribution Width 15.9 % (11.5-14.5); White Blood Count 8.9 K/mm3 (4.5-10.0)
[2025-02-26 16:05] LABS: Alanine Aminotransferase 36 U/L (6-50); Albumin Level 4.5 g/dL (3.5-5.1); Alkaline Phosphatase 65 U/L (38-126); Anion Gap 10 mmol/L (4-12); Aspartate Amino Transferase 39 U/L (17-59); Bilirubin,Total 0.5 mg/dL (0.2-1.3); Blood Urea Nitrogen 13 mg/dL (9-20); Calcium 9.5 mg/dL (8.4-10.2); Carbon Dioxide 27 mmol/L (22-30); Chloride 104 mmol/L (98-107); Cholesterol 168 mg/dL (0-200); Estimated Glomerular Filt Rate 57; Glucose 98 mg/dL (65-110); HDL Direct 66 mg/dL; Potassium 4.3 mmol/L (3.4-5.0); Sodium 141 mmol/L (137-145); Total Protein 7.8 g/dL (6.3-8.2); Triglycerides 123 mg/dL (<150)
[2025-02-26 16:09] LABS: Iron 51 ug/dL (49-181)
[2025-02-26 16:16] LABS: LDL Cholesterol Direct 72 mg/dL
[2025-02-26 16:19] LABS: Percent Iron Saturation 12 % (20-50)
[2025-02-26 16:38] LABS: Free T4 Free Thyroxine 1.05 ng/dL (0.78-2.19); Vitamin D 25 Hydroxy 50.8 ng/mL
== END 2025-02-26 15:19 | disposition home or self-care (01) ==
PROVIDERS: PCP Internal Medicine; Visit Provider Internal Medicine
DX: E78.2 Mixed hyperlipidemia (principal); Z00.01 Encounter for general adult medical examination with abnormal findings; R53.83 Other fatigue; I10 Essential (primary) hypertension; E78.5 Hyperlipidemia, unspecified; D50.9 Iron deficiency anemia, unspecified; Z79.899 Other long term (current) drug therapy; E83.51 Hypocalcemia; E87.6 Hypokalemia; E83.42 Hypomagnesemia
CPT/HCPCS: 36415; 80053; 80061; 82306; 82728; 83540; 83550; 84439; 84443; 85025

== ENCOUNTER 2025-08-03 10:34 | Outpatient (CLI) | payer BC, SELFPAY ==
--- OUTSIDE RECORDS SUMMARY | 2025-08-03 12:01 | XMS_ITS | Clinical Summary ---
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 No 09/01/2024 Social Connection and Isolation Panel Answer Date Recorded In a typical week, how many times do you talk on the phone with family, friends, or neighbors? Three times a week 09/01/20 24 How often do you get togethe r with friends or relatives? Twice a week 09/01/2024 Attends [employer] Not on file 09/01 Active Member [...] any time in the past 12 m [facility], were you homeless or living in a snf (including now)? No 09/01/2024 Personal Safety Answer Date Recorded Have you ever been in or are you currently in a harmful physical or emotional relationship or is someone making you feel afraid or unsafe? 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 Gender Identity Not on file Sexual Orientation Not on file Last Filed Vital Signs Vital Sign Reading Time Taken Comments Blood Pressure 112/64 09/02/2024 12:44 PM FIRE PRODUCTION OPERATOR Pulse 105 09/02/2024 12:44 PM FIRE PRODUCTION OPERATOR Temperature 36.9 C (98.5 F) 09/02/2024 12:44 PM FIRE PRODUCTION OPERATOR Respiratory Rate 18 09/02/2024 12:4 4 PM FIRE PRODUCTION OPERATOR Oxygen Saturation 98% 09/02/2024 12: 44 PM FIRE PRODUCTION OPERATOR Inhaled Oxygen Concentration - - Weight 88.4 kg (194 lb 14.2 oz) 08/28/2024 4:30 PM FIRE PRODUCTION OPERATOR Height 172.7 cm (5' 8) 08/28/2024 4:30 PM FIRE PRODUCTION OPERATOR Body Mass Index 29.63 08/28/2024 4:30 PM FIRE PRODUCTION OPERATOR Plan of Treatment Health Maintenance Due Date Last Done Comments Depression Screening 1965 Hepatitis C Screening 1965 Prostate Cancer Screening-PSA 1965 DTaP/Tdap/Td Vaccine (1 - Tdap) 1974 Hepatitis B Screening 1981 Regular Well Visit/Exam 18-64 1981 Zoster Vaccine (1 of 2) 2013 Covid-19 Vaccine ( season) 2025 07/21/2024, 05/25/2023, 09/04/2022, Additional history exists Influenza Vaccine (#1) 2025 , 05/25/2023, 09/04/2022, Additional history exists Colon Cancer Screening-Colonoscopy 09/01/2034 09/01/2024 Pneumococcal vaccine <65 Aged Out 07/21/2024 No longer eligible based on patient's age to complete this topic Colon Cancer Screening-CT Colonography Discontinued 09/01/2024 Colon Cancer Screening-DNA Stool Discontinued 09/01/2024 Colon Cancer Screening-FIT Discontinued 09/01/2024 Colon Cancer Screening-Sigmoidoscopy Discontinued 09/01/2024 Procedures Procedure Name Priority Date/Time Associated Diagnosis Comments COLONOSCOPY 09/01/2024 10:52 AM FIRE PRODUCTION OPERATOR from Last 3 Months or Most Recently Relevant to Health Maintenance Results * Colonoscopy (09/01/2024 10:52 AM FIRE PRODUCTION OPERATOR) Anatomical Region Laterality Modality Other Narrative Procedure Note Cristo Funes MD - 09/01/2024 10:52 AM CST ENDOSCOPY LAB Patient Name: Jones Painting Procedure Date: 09/01/2024 10:52AM Admit Type: Inpatient Room: [facility] Date of : 1965 Instrument [...] 09/01/2024 10:52 AM Scope In: Scope Out: Cristo Funes MD ENDOSCOPY PROCEDURE S Final Result from Last 3 Months or Most Recently Relevant to Health Maintenance Insurance CHOICE PLUS [facility] [employer] [place] Advance Directives For more information, please contact: [phone] * Full Code (Latest Code Status on File) Date Activated Date Inactivated Comments 08/28/2024 5:56 PM 09/02/2024 5:31 PM Care Teams Elevator Supervisor Relationship Specialty Start Date End Date Fernie Fulton MD PCP - General 06/13/19 Fernie Fulton MD Internal Medicine 06/13/19
--- OUTSIDE RECORDS SUMMARY | 2025-08-03 12:01 | XMS_ITS | Encounter Summary ---
Author Organization [facility] Address [facility] [place] [address] Care Team Providers Care Pyrotechnics Press Tender Name Role Phone Fernie Fulton MD Primary Care Provider [phone] Encounter Details Date Type Department Care Team (Late st Contact Info) Description 08/23/2020 Prep for Procedure [facility] [address] [place], [place] [id number] Alcon Desir MD [address] [place] [address] [place] [address] Social History Tobacco Use Types Packs/Day Years Used Date Smoking Tobacco: Former Smokeless Tobacco: Never Alcohol Use Standard Drinks/Week Comments Not Currently 0 (1 standard drink = 0.6 oz pur e alcohol) Sex and Gender Information Value Date Recorded Sex Assigned at Not on file Legal 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 Gender Identity Not on file Sexual Orientation Not on file documented as of this encounter Plan of Treatment Not on file documented as of this encounter Visit Diagnoses Diagnosis Preop testing- Primary Preoperative examination, unspecified documented in this encounter Additional Health Concerns Infection Onset Date Last Indicated Resolved Time COVID-19 Rule Out 08/28/2020 08/28/2020 08/30/2020 12:50 PM TYPO MACHINE OPERATOR documented as of this encounter Care Teams Pyrotechnics Press Tender Relationship Specialty Start Date End Date Fernie Fulton MD [address] [place] [id number] PCP - General INTERNAL MEDICINE 08/28/20 documented as of this encounter
--- OUTSIDE RECORDS SUMMARY | 2025-08-03 12:01 | XMS_ITS | Clinical Summary ---
Author Organization [facility] Address [address] [place] [address] Care Team Providers Care Slot Router Name Role Phone Fernie Fulton MD Primary Care Provider [phone] Allergies No known active allergies Medications nebivolol [...] on file Legal Sex Male 2:51 PM VASCULAR TECHNOLOGIST Gender Identity Not on file Sexual Orientation Not on file Last Filed Vital Signs Vital Sign Reading Time Taken Comments Blood Pressure 165/99 08/30/2020 10:46 AM VASCULAR TECHNOLOGIST did not take his blood pressure medication, and will resume once he is discharged. Pulse 73 08/30/2020 10:46 AM VASCULAR TECHNOLOGIST Temperature 36.7 C (98.1 F) 08/30/2020 10:46 AM VASCULAR TECHNOLOGIST Respiratory Rate 20 08/30/2020 10:4 6 AM VASCULAR TECHNOLOGIST Oxygen Saturation 96% 08/30/2020 10: 46 AM VASCULAR TECHNOLOGIST Inhaled Oxygen Concentration - - Weight 86.2 kg (190 lb) 08/30/2020 9:05 AM VASCULAR TECHNOLOGIST Height 172.7 cm (5' 8) 08/30/2020 9:05 AM VASCULAR TECHNOLOGIST Body Mass Index 28.89 08/30/2020 9:05 AM VASCULAR TECHNOLOGIST Plan of Treatment Health Maintenance Due Date Last Done Comments Colorectal Cancer Screening Colonoscopy ( Years) 1963 Annual Physical 1966 Hepatitis C 1981 DTaP, Tdap and Td Vaccines ( 1 - Tdap) 1982 Pneumococcal Vaccine: 50+ Ye ars (1 of 1 - PCV) 2013 Zoster Vaccines (1 of 2) 2013 COVID-19 Vaccine (1 - 2024-2 6 season) 2025 Influenza Adult (#1) 2025 RSV Immunization or 60+ Years (1 - 1-dose 75+ series) 2038 Hepatitis A Vaccines Aged Out No long er eligible based on patient's age to complete this topic Meningococcal B Vaccine Aged Out No l onger eligible based on patient's age to complete this topic Meningococcal Vaccine Aged Out No belinda tere eligible based on patient's age to complete this topic RSV Immunizations Under 20 Months Aged Out No longer eligible based on patient's age to complete this topic Medical Devices Implanted Type Area Port Purser Device Identifier Shelf Expiration Date Model / Serial / Lot Iol [employer] - [id number] Implanted:Qty: 1 on 08/30/2020 by Alcon Desir MD at [facility] [employer] [id number] 01/20/2021 [id number] / [id number] / Insurance [facility] Care Teams Slot Router Relationship Specialty Start Date End Date Fernie Fulton MD [address] [place] [phone] PCP - General INTERNAL MEDICINE 08/28/20
[2025-08-05 16:08] LABS: Free Testosterone (Direct) 6.9 pg/mL (6.6-18.1)
== END 2025-08-03 10:35 | disposition home or self-care (01) ==
LOC: ANHLAB 10:35
PROVIDERS: PCP Internal Medicine; Visit Provider Internal Medicine
DX: E29.1 Testicular hypofunction (principal)
CPT/HCPCS: 84402; 84403

== ENCOUNTER 2025-08-10 10:57 | Outpatient (CLI) | payer BC, SELFPAY ==
[2025-08-10 11:36] LABS: Hemoglobin A1C 5.0 % (<5.7)
[2025-08-10 11:47] LABS: Alanine Aminotransferase 26 U/L (6-50); Albumin Level 4.4 g/dL (3.5-5.1); Alkaline Phosphatase 69 U/L (38-126); Anion Gap 5 mmol/L (4-12); Aspartate Amino Transferase 31 U/L (17-59); Bilirubin,Total 0.9 mg/dL (0.2-1.3); Blood Urea Nitrogen 16 mg/dL (9-20); Calcium 9.3 mg/dL (8.4-10.2); Carbon Dioxide 26 mmol/L (22-30); Chloride 107 mmol/L (98-107); Cholesterol 130 mg/dL (0-200); Estimated Glomerular Filt Rate > 60; Glucose 90 mg/dL (65-110); HDL Direct 48 mg/dL; Potassium 4.7 mmol/L (3.4-5.0); Sodium 138 mmol/L (137-145); Total Protein 7.8 g/dL (6.3-8.2); Triglycerides 102 mg/dL (<150)
[2025-08-13 20:07] LABS: Free Testosterone (Direct) 4.3 pg/mL (6.6-18.1)
== END 2025-08-10 10:58 | disposition home or self-care (01) ==
LOC: ANHLAB 10:57
PROVIDERS: PCP Internal Medicine; Visit Provider Internal Medicine
DX: E78.2 Mixed hyperlipidemia (principal); I10 Essential (primary) hypertension; Z79.899 Other long term (current) drug therapy; Z13.1 Encounter for screening for diabetes mellitus
CPT/HCPCS: 36415; 80053; 80061; 83036; 84402; 84403